=== PATIENT | female | born 1950 | race Caucasian/White ===

== ENCOUNTER → 2017-08-19 | Outpatient (CLI) | payer MEDICARE, SELFPAY | PROVIDERS: Visit Provider Internal Medicine Adolescent Medicine | DX: S81.802A Unspecified open wound, left lower leg, initial encounter (principal) | CPT/HCPCS: 87070; 87077; 87186 ==

== ENCOUNTER → 2017-08-21 | Outpatient (CLI) | payer MEDICARE, SELFPAY | PROVIDERS: Visit Provider Internal Medicine Adolescent Medicine | DX: Z78.0 Asymptomatic menopausal state (principal); M25.552 Pain in left hip; M54.5 Low back pain; Z13.820 Encounter for screening for osteoporosis | CPT/HCPCS: 77080 ==

== ENCOUNTER → 2017-08-28 | Outpatient (RCR) | payer MEDICARE, SELFPAY | LOC: PT 07-20 10:00 | PROVIDERS: Visit Provider Internal Medicine Adolescent Medicine | DX: I89.0 Lymphedema, not elsewhere classified (principal) | CPT/HCPCS: G8987; G8988; G8989; 29580; 97140; 97162; 97597; 97760 ==

== ENCOUNTER 2017-09-08 10:25 | Day surgery (SDC) | payer MEDICARE, SELFPAY ==
[2017-09-08 10:38] VITALS: BP 166/75; PULSE 72; RESP 18; TEMP 36.7; O2SAT 98
[2017-09-08 10:46] VITALS: BP 195/68; PULSE 54; RESP 18; TEMP 36.3
[2017-09-08 10:57] VITALS: BP 120/97; PULSE 65; RESP 20
[2017-09-08 10:57] LABS: POC Glucose,Bedside 113 mg/dL
[2017-09-08 10:59] VITALS: BP 139/72; PULSE 65; RESP 20
--- NOTE | 2017-09-25 13:06 | P.PCN_ITS ---
- Procedure Date: 09/08/17 Time: 11:00 Anesthesiologist:: Joshua Hogue CRNA Complications:: None Pre-procedure Diagnosis:: Left sacroiliitis Post-procedure Diagnosis:: Same Indications for Procedure:: Very pleasant 67-year-old white female that presents to our procedure clinic today for a left SI joint injection. Patient has extreme point tenderness over the left SI joint upon examination. Also patient reports left hip and buttock pain. Patient reports pain as sharp, constant, stabbing at times. Patient also reports the pain intensifies when sitting for any length of time. Procedure Details:: Informed consent was obtained and the risks and benefits of the procedure were explained to the patient. The patient was taken to the procedure room and noninvasive monitors were placed including noninvasive blood pressure cuff and pulse oximeter. The patient was placed prone on the procedure table. Left hip was cleansed using chlorhexidine as a cleansing solution. C arm fluoroscopy was used to view the left sacroiliac joint. The skin and subcutaneous tissues were anesthetized using lidocaine 1.5% and a 25-gauge needle. After this, a 22- gauge spinal needle was inserted under fluoroscopy guidance into the inferior aspect of the left sacroiliac joint. Omnipaque dye was injected and good spread was seen throughout the joint. After this, approximately 5 mL's of bupivacaine 0.25% and Depo-Medrol 80 mg was incrementally injected into the left sacroiliac joint. Patient was observed in the pain clinic and then discharged home neurologically intact Plan and Disposition:: Patient was evaluated 10 minutes postprocedure she reports 100% improvement in terms of her left hip pain
== END 2017-09-08 11:00 | disposition home or self-care (01) ==
LOC: SC.PAINP 10:28
PROVIDERS: Family Provider Internal Medicine Adolescent Medicine; PCP Internal Medicine Adolescent Medicine; Visit Provider Nurse Anesthetist, Certified Registered
DX: M46.1 Sacroiliitis, not elsewhere classified (principal); E11.9 Type 2 diabetes mellitus without complications; Z79.4 Long term (current) use of insulin
CPT/HCPCS: 27096; 82962; G0260; J1030

== ENCOUNTER 2017-09-11 15:00 | Outpatient (RCR) | payer MEDICARE, SELFPAY | END 2017-09-18 23:59 | LOC: PT 15:00 | PROVIDERS: Family Provider Internal Medicine Adolescent Medicine; PCP Internal Medicine Adolescent Medicine; Visit Provider Internal Medicine Adolescent Medicine | DX: I89.0 Lymphedema, not elsewhere classified (principal) ==

== ENCOUNTER → 2017-09-22 08:43 | Outpatient (CLI) | payer MEDICARE, SELFPAY ==
[2017-09-22 09:17] LABS: Basophils % 0.5 % (0.1-2.0); Eosinophils # 0.5 K/mm3 (0.0-0.4); Eosinophils % 6.7 % (0.1-12.0); Hematocrit 33.6 % (37.0-47.0); Hemoglobin 10.9 g/dL (12.2-16.2); Lymphocytes # 1.6 K/mm3 (0.7-4.5); Mean Corpuscular HGB Conc 32.4 g/dL (31.8-35.4); Mean Corpuscular Hemoglobin 30.6 pg (27.0-31.2); Mean Corpuscular Volume 94.2 fl (81-99); Monocytes # 0.7 K/mm3 (0.1-1.0); Monocytes % 8.2 % (1.7-9.3); Neutrophils # 5.1 K/mm3 (1.8-7.8); Neutrophils % 64.6 % (37.0-80.0); Platelet Count 270 K/mm3 (142-424); Red Blood Count 3.56 M/mm3 (4.20-5.40); Red Cell Distribution Width 14.2 % (11.5-17.5); White Blood Count 7.9 K/mm3 (4.8-10.8)
[2017-09-22 12:10] LABS: Creatinine,Urine Random 16 mg/dL (20-320); Total Protein,Urine Random 131.1 mg/dL (0.0-11.9)
[2017-09-22 12:19] LABS: Albumin Level 2.9 gm/dL (3.4-5.0); Anion Gap 9.5 mEq/L (5-15); Blood Urea Nitrogen 27 mg/dL (7-18); Calcium 8.7 mg/dL (8.5-10.1); Carbon Dioxide 32 mmol/L (21.0-32.0); Chloride 103 mmol/L (98-107); Creatinine,Serum 1.98 mg/dL (0.55-1.02); Estimated Glomerular Filt Rate 25 ml/min (>60); GFR (African American) 30 ML/MIN (>60); Glucose 75 mg/dL (74-106); Phosphorous 4.1 mg/dL (2.4-4.9); Potassium 3.5 mmoL/L (3.5-5.1); Sodium 141 mmol/L (136-145)
[2017-09-24 08:50] LABS: Vitamin D 25 Hydroxy 25.5 ng/mL (30.0-100.0)
== END ==
PROVIDERS: PCP Internal Medicine Adolescent Medicine; Visit Provider Internal Medicine Nephrology
DX: N18.5 Chronic kidney disease, stage 5 (principal)
CPT/HCPCS: 36415; 80069; 82570; 82652; 84155; 85025

== ENCOUNTER → 2017-09-28 12:30 | Outpatient (POV) | payer MEDICARE, SELFPAY | PROVIDERS: Family Provider Internal Medicine Adolescent Medicine; PCP Internal Medicine Adolescent Medicine; Visit Provider Internal Medicine Nephrology | DX: Z00.00 Encounter for general adult medical examination without abnormal findings (principal) ==

== ENCOUNTER → 2017-11-03 08:30 | Outpatient (POV) | payer MEDICARE, SELFPAY ==
[2017-11-03 08:39] VITALS: BP 167/63; PULSE 69; RESP 18; TEMP 36.3; O2SAT 96; BMI 32.9
--- NOTE | 2017-11-03 08:41 | HMH.PAINSOAP ---
[facility] Pain Management SOAP Note Subjective:: Patient is a pleasant 67-year-old white female who presents today after having a left SI joint injection 2 months ago. Patient states she got 60-80% relief from her left SI injection lasting 8 weeks. She is still having quite a bit of relief from this. Patient is very happy with her increased functionality and her ability to complete house chores. Patient does state she has some flares in her left SI. She states that when she does have this it is sharp, constant, stabbing at times. She does state that the pain radiates into her left groin area. ROS General: no recent weight change, no fever, no sleep disturbances Respiratory: no cough, no shortness of air, no recurring pulmonary infections Cardiovascular/Peripheral Vascular: No chest pain, No palpitations, no shortness of breath. Gastrointestinal: no incontinence, normal bowel movements reported Genitourinary: no incontinence Musculoskeletal: Left SI joint pain Psychiatric: normal mood/ affect Neurological: [denies weakness in extremities], [denies balance issues] Objective:: Physical Exam General: Alert and oriented x3, no acute distress, pleasant and cooperative, [on room air] Lungs: Resps E/U, Symmetrical chest expansion, Eyes: PERRL Musculoskeletal: Flexion and extension of lumbar spine somewhat guarded secondary to pain, deep tendon reflexes normal, strength in upper and lower extremities [5/5], slightly antalgic gait noted, extreme point tenderness over the left SI, left Brandee's test positive Neurological: speech clear, vegetable washing machine operator equal, no gross sensory deficits Assessment:: Left-sided sacroiliitis Plan:: We will plan another left SI joint injection in several weeks. The patient did so well with her last one I believe that this one would give her even more long-term relief. Patient had 8 weeks of relief after her last injection. This note was dictated using voice recognition software may contain errors or omissions
--- NOTE | 2017-11-03 08:45 | P.CONS_ITS ---
[facility] Pain Management SOAP Note Subjective:: Patient is a pleasant 67-year-old white female who presents today after having a left SI joint injection 2 months ago. Patient states she got 60-80% relief from her left SI injection lasting 8 weeks. She is still having quite a bit of relief from this. Patient is very happy with her increased functionality and her ability to complete house chores. Patient does state she has some flares in her left SI. She states that when she does have this it is sharp, constant, stabbing at times. She does state that the pain radiates into her left groin area. ROS General: no recent weight change, no fever, no sleep disturbances Respiratory: no cough, no shortness of air, no recurring pulmonary infections Cardiovascular/Peripheral Vascular: No chest pain, No palpitations, no shortness of breath. Gastrointestinal: no incontinence, normal bowel movements reported Genitourinary: no incontinence Musculoskeletal: Left SI joint pain Psychiatric: normal mood/ affect Neurological: [denies weakness in extremities], [denies balance issues] Objective:: Physical Exam General: Alert and oriented x3, no acute distress, pleasant and cooperative, [ on room air] Lungs: Resps E/U, Symmetrical chest expansion, Eyes: PERRL Musculoskeletal: Flexion and extension of lumbar spine somewhat guarded secondary to pain, deep tendon reflexes normal, strength in upper and lower extremities [5/5], slightly antalgic gait noted, extreme point tenderness over the left SI, left Brandee's test positive Neurological: speech clear, dishcloth folder equal, no gross sensory deficits Assessment:: Left-sided sacroiliitis Plan:: We will plan another left SI joint injection in several weeks. The patient did so well with her last one I believe that this one would give her even more long- term relief. Patient had 8 weeks of relief after her last injection. This note was dictated using voice recognition software may contain errors or omissions
== END ==
PROVIDERS: Family Provider Internal Medicine Adolescent Medicine; PCP Internal Medicine Adolescent Medicine; Visit Provider Clinical Nurse Specialist Family Health
DX: M46.1 Sacroiliitis, not elsewhere classified (principal)
CPT/HCPCS: 99212

== ENCOUNTER → 2017-12-22 07:44 | Outpatient (CLI) | payer MEDICARE, SELFPAY ==
[2017-12-22 09:26] LABS: Albumin Level 3.2 gm/dL (3.4-5.0); Anion Gap 12.8 mEq/L (5-15); Blood Urea Nitrogen 42 mg/dL (7-18); Calcium 8.9 mg/dL (8.5-10.1); Carbon Dioxide 34 mmol/L (21.0-32.0); Chloride 97 mmol/L (98-107); Creatinine,Serum 2.16 mg/dL (0.55-1.02); Estimated Glomerular Filt Rate 23 ml/min (>60); GFR (African American) 27 ML/MIN (>60); Glucose 77 mg/dL (74-106); Phosphorous 4.5 mg/dL (2.4-4.9); Sodium 141 mmol/L (136-145)
[2017-12-22 09:38] LABS: Potassium 2.8 mmoL/L (3.5-5.1)
== END ==
PROVIDERS: Visit Provider Internal Medicine Nephrology
DX: N18.5 Chronic kidney disease, stage 5 (principal)
CPT/HCPCS: 36415; 80069

== ENCOUNTER → 2017-12-28 12:32 | Outpatient (POV) | payer MEDICARE, SELFPAY | PROVIDERS: Family Provider Internal Medicine Adolescent Medicine; PCP Internal Medicine Adolescent Medicine; Visit Provider Internal Medicine Nephrology | DX: Z00.00 Encounter for general adult medical examination without abnormal findings (principal) ==

== ENCOUNTER → 2018-01-07 09:21 | Outpatient (CLI) | payer MEDICARE, SELFPAY ==
[2018-01-07 12:38] LABS: Anion Gap 15.2 mEq/L (5-15); Blood Urea Nitrogen 52 mg/dL (7-18); Carbon Dioxide 31 mmol/L (21.0-32.0); Chloride 99 mmol/L (98-107); Creatinine,Serum 2.85 mg/dL (0.55-1.02); Estimated Glomerular Filt Rate 16 ml/min (>60); GFR (African American) 20 ML/MIN (>60); Glucose 95 mg/dL (74-106); Potassium 4.2 mmoL/L (3.5-5.1); Sodium 141 mmol/L (136-145)
== END ==
PROVIDERS: Visit Provider Internal Medicine Nephrology
DX: N18.5 Chronic kidney disease, stage 5 (principal)
CPT/HCPCS: 36415; 80048

== ENCOUNTER 2018-01-08 09:00 | Outpatient (RCR) | payer MEDICARE, SELFPAY | END 2018-01-08 09:01 | disposition home or self-care (01) | LOC: PT 09:00 | PROVIDERS: Family Provider Internal Medicine Adolescent Medicine; PCP Internal Medicine Adolescent Medicine; Visit Provider Internal Medicine Adolescent Medicine | DX: I89.0 Lymphedema, not elsewhere classified (principal) | CPT/HCPCS: 97140; 97164; 97597 ==

== ENCOUNTER → 2018-02-02 08:51 | Outpatient (POV) | payer MEDICARE, SELFPAY ==
[2018-02-02 08:55] VITALS: BP 133/49; PULSE 52; RESP 18; O2SAT 98; BMI 32.5
--- NOTE | 2018-02-02 09:08 | HMH.PAINSOAP ---
[facility] Pain Management SOAP Note Subjective:: Patient is a pleasant 67-year-old white female who presents today for follow-up. Patient had an SI joint injection several months ago. She states that she had 80% relief of her SI joint pain. Patient states that this lasted for over 2 months. Patient states she is more functional after her injections. Patient would like another left SI joint injection. Patient states that her pain has begun to return it radiates into her left groin. Patient states that sharp, stabbing at times. Patient rates her pain today at 3 out of 10. ROS General: no recent weight change, no fever, no sleep disturbances Respiratory: no cough, no shortness of air, no recurring pulmonary infections Cardiovascular/Peripheral Vascular: No chest pain, No palpitations, no edema, no shortness of breath. Gastrointestinal: no incontinence, normal bowel movements reported Genitourinary: no incontinence Musculoskeletal: Left SI joint pain Psychiatric: normal mood/ affect Neurological: [denies weakness in extremities], [denies balance issues] Objective:: Physical Exam General: Alert and oriented x3, no acute distress, pleasant and cooperative, [on room air] Lungs: Resps E/U, Symmetrical chest expansion, Eyes: PERRL Musculoskeletal: Flexion and extension of lumbar spine somewhat guarded secondary to pain, deep tendon reflexes normal, strength in upper and lower extremities [5/5], slightly antalgic gait noted, positive Brandee's test on the left side, extreme point tenderness over left SI joint Neurological: speech clear, advertising sales manager equal, no gross sensory deficits Assessment:: Sacroiliitis Plan:: We will plan another left SI joint injection. Patient did well with her last one. I believe that she will get even more long-term relief and additional injection. Patient is not on any anticoagulation therapy. Patient's tried and failed physical therapy, anti-inflammatories, medications. I will follow-up with her after injection. This note was dictated using voice recognition software and may contain errors or omissions
== END ==
PROVIDERS: Family Provider Internal Medicine Adolescent Medicine; PCP Internal Medicine Adolescent Medicine; Visit Provider Clinical Nurse Specialist Family Health
DX: M46.1 Sacroiliitis, not elsewhere classified (principal)
CPT/HCPCS: 99212

== ENCOUNTER → 2018-02-03 09:50 | Outpatient (CLI) | payer MEDICARE, SELFPAY ==
[2018-02-03 10:38] LABS: Basophils % 0.8 % (0.1-2.0); Eosinophils # 0.4 K/mm3 (0.0-0.4); Eosinophils % 7.8 % (0.1-12.0); Hematocrit 31.8 % (37.0-47.0); Hemoglobin 10.1 g/dL (12.2-16.2); Lymphocytes # 1.3 K/mm3 (0.7-4.5); Lymphocytes % 25.3 K/mm3 (10-50); Mean Corpuscular HGB Conc 31.9 g/dL (31.8-35.4); Mean Corpuscular Hemoglobin 31.2 pg (27.0-31.2); Mean Corpuscular Volume 97.9 fl (81-99); Mean Platelet Volume 8.3 fl (7.4-10.4); Monocytes # 0.5 K/mm3 (0.1-1.0); Monocytes % 8.9 % (1.7-9.3); Neutrophils % 57.2 % (37.0-80.0); Platelet Count 255 K/mm3 (142-424); Red Blood Count 3.25 M/mm3 (4.20-5.40); Red Cell Distribution Width 12.8 % (11.5-17.5); White Blood Count 5.2 K/mm3 (4.8-10.8)
[2018-02-03 12:11] LABS: Alanine Aminotransferase 24 U/L (12-78); Albumin Level 3.3 gm/dL (3.4-5.0); Albumin/Globulin Ratio 1.3 (1.1-1.8); Alkaline Phosphatase 120 U/L (46-116); Anion Gap 14.4 mEq/L (5-15); Aspartate Amino Transferase 28 U/L (15-37); Bilirubin,Total 0.4 mg/dL (0.2-1.0); Blood Urea Nitrogen 58 mg/dL (7-18); Calcium 8.4 mg/dL (8.5-10.1); Carbon Dioxide 27 mmol/L (21.0-32.0); Chloride 102 mmol/L (98-107); Chol/HDL Ratio 4.2 (1-3.5); Cholesterol 144 mg/dL (140-200); Creatinine,Serum 3.04 mg/dL (0.55-1.02); Estimated Glomerular Filt Rate 15 ml/min (>60); GFR (African American) 18 ML/MIN (>60); Globulin 2.6 gm/dl (1.3-3.2); Glucose 95 mg/dL (74-106); HDL Cholesterol 34 mg/dL (29-89); LDL Cholesterol 88 mg/dL (0-130); Potassium 4.4 mmoL/L (3.5-5.1); Sodium 139 mmol/L (136-145); Total Protein,Serum 5.9 gm/dL (6.4-8.2); Triglycerides 108 mg/dL (30-200); VLDL Cholesterol 22 mg/dL (0-40)
== END ==
PROVIDERS: Visit Provider Internal Medicine Adolescent Medicine
DX: N18.2 Chronic kidney disease, stage 2 (mild) (principal); E11.21 Type 2 diabetes mellitus with diabetic nephropathy; E78.5 Hyperlipidemia, unspecified
CPT/HCPCS: 36415; 80053; 80061; 83036; 85025

== ENCOUNTER 2018-02-19 09:59 | Day surgery (SDC) | payer MEDICARE, SELFPAY ==
[2018-02-19 10:38] VITALS: BP 154/96; PULSE 88; RESP 18; O2SAT 98
--- NOTE | 2018-02-19 10:40 | P.PCN_ITS ---
- Procedure Date: 02/19/18 Time: 10:39 Anesthesiologist:: Americo Sharpe MD Complications:: None Pre-procedure Diagnosis:: Sacroiliitis Post-procedure Diagnosis:: Same Indications for Procedure:: This patient is a pleasant 67-year-old white female who we are treating for left -sided hip pain. She is tender over the left SI joint. She does have a positive Brandee's test on left side. We will do a left SI joint injection today to see if this helps with her pain symptoms. Procedure Details:: Left SI joint injection under fluoroscopy Informed consent was obtained and the risks and benefits of the procedure was explained to the patient. Patient was taken to the procedure room. Patient was placed prone on the procedure table. The left hip was prepped using ChloraPrep. The skin and subcutaneous tissues were anesthetized using lidocaine. I placed a 22-gauge spinal needle into the inferior aspect of the left SI joint. Needle placement was confirmed with dye. After this we injected 5 mL bupivacaine 0.25% and Depo-Medrol 40 mg into the left SI joint. The patient tolerated the procedure well with no complication. Plan and Disposition:: We will follow-up with her in 2 weeks. We will reevaluate her symptoms at that time.
[2018-02-19 11:00] VITALS: BP 158/59; PULSE 78; RESP 18; O2SAT 98
[2018-02-19 13:39] VITALS: BP 154/87; PULSE 88; RESP 20; O2SAT 97; BMI 31.8
== END 2018-02-19 11:00 | disposition home or self-care (01) ==
LOC: SC.PAINP 10:01
PROVIDERS: PCP Internal Medicine Adolescent Medicine; Visit Provider Anesthesiology
DX: M46.1 Sacroiliitis, not elsewhere classified (principal)
CPT/HCPCS: 27096; G0260; J1040; Q9966

== ENCOUNTER → 2018-02-27 11:00 | Outpatient (CLI) | payer MEDICARE, SELFPAY ==
[2018-02-27 12:01] LABS: Basophils % 0.4 % (0.1-2.0); Eosinophils # 0.3 K/mm3 (0.0-0.4); Eosinophils % 4.5 % (0.1-12.0); Hematocrit 29.2 % (37.0-47.0); Lymphocytes # 1.3 K/mm3 (0.7-4.5); Lymphocytes % 18.2 K/mm3 (10-50); Mean Corpuscular HGB Conc 34.4 g/dL (31.8-35.4); Mean Corpuscular Hemoglobin 33.7 pg (27.0-31.2); Mean Corpuscular Volume 97.8 fl (81-99); Monocytes # 0.6 K/mm3 (0.1-1.0); Monocytes % 8.5 % (1.7-9.3); Neutrophils % 68.4 % (37.0-80.0); Platelet Count 239 K/mm3 (142-424); Red Blood Count 2.98 M/mm3 (4.20-5.40); Red Cell Distribution Width 13.5 % (11.5-17.5); White Blood Count 7.3 K/mm3 (4.8-10.8)
[2018-02-27 12:52] LABS: Albumin Level 3.5 gm/dL (3.4-5.0); Anion Gap 11.8 mEq/L (5-15); Blood Urea Nitrogen 53 mg/dL (7-18); Calcium 8.6 mg/dL (8.5-10.1); Carbon Dioxide 28 mmol/L (21.0-32.0); Chloride 105 mmol/L (98-107); Creatinine,Serum 2.38 mg/dL (0.55-1.02); Estimated Glomerular Filt Rate 20 ml/min (>60); GFR (African American) 24 ML/MIN (>60); Glucose 60 mg/dL (74-106); Phosphorous 5.3 mg/dL (2.4-4.9); Potassium 4.8 mmoL/L (3.5-5.1); Sodium 140 mmol/L (136-145)
== END ==
PROVIDERS: Visit Provider Internal Medicine Nephrology
DX: N18.5 Chronic kidney disease, stage 5 (principal)
CPT/HCPCS: 36415; 80069; 82652; 85025

== ENCOUNTER → 2018-03-01 13:14 | Outpatient (POV) | payer MEDICARE, SELFPAY | PROVIDERS: Family Provider Internal Medicine Adolescent Medicine; PCP Internal Medicine Adolescent Medicine; Visit Provider Internal Medicine Nephrology | DX: Z00.00 Encounter for general adult medical examination without abnormal findings (principal) ==

== ENCOUNTER → 2018-03-22 10:18 | Outpatient (CLI) | payer MEDICARE, SELFPAY ==
--- NOTE | 2018-03-22 10:20 | MM_ITS ---
MM Dig screening mamm BI w/CAD CAD Screening COMPARISON: Digital mammograms with CAD 02/14/2016 and 03/10/2017 INDICATION: There is no personal or family history of breast cancer TECHNIQUE: Standard CC and MLO images were obtained. R2 CAD reviewed. FINDINGS: Moderate diffuse fibroglandular densities are seen in both breasts. There is arterial calcination in each breast and are scattered benign-appearing calcination is in each breast. There is no suspicious lesion and there are no suspicious microcalcifications. IMPRESSION: Moderate breast density with no suspicious lesion seen BI-RADS Category: 2 Benign Finding(s) RECOMMENDED FOLLOW-UP: 1YR - 1 YEAR FOLLOW-UP (A letter has been sent to the patient regarding results of the study.)
== END ==
PROVIDERS: Family Provider Internal Medicine Adolescent Medicine; PCP Internal Medicine Adolescent Medicine; Visit Provider Internal Medicine Adolescent Medicine
DX: Z12.31 Encounter for screening mammogram for malignant neoplasm of breast (principal)
CPT/HCPCS: 77067

== ENCOUNTER → 2018-03-25 11:49 | Outpatient (CLI) | payer MEDICARE, SELFPAY | PROVIDERS: PCP Internal Medicine Adolescent Medicine; Visit Provider Internal Medicine Cardiovascular Disease | DX: I25.10 Atherosclerotic heart disease of native coronary artery without angina pectoris (principal) | CPT/HCPCS: 93225 ==

== ENCOUNTER → 2018-04-13 09:04 | Outpatient (CLI) | payer MEDICARE, SELFPAY ==
[2018-04-13 10:02] LABS: Basophils % 0.3 % (0.1-2.0); Eosinophils # 0.5 K/mm3 (0.0-0.4); Eosinophils % 7.5 % (0.1-12.0); Hematocrit 26.7 % (37.0-47.0); Hemoglobin 9.1 g/dL (12.2-16.2); Lymphocytes # 1.2 K/mm3 (0.7-4.5); Lymphocytes % 18.5 K/mm3 (10-50); Mean Corpuscular HGB Conc 34.1 g/dL (31.8-35.4); Mean Corpuscular Hemoglobin 33.2 pg (27.0-31.2); Mean Corpuscular Volume 97.4 fl (81-99); Monocytes # 0.7 K/mm3 (0.1-1.0); Neutrophils # 4.2 K/mm3 (1.8-7.8); Neutrophils % 62.8 % (37.0-80.0); Platelet Count 211 K/mm3 (142-424); Red Blood Count 2.74 M/mm3 (4.20-5.40); Red Cell Distribution Width 13.5 % (11.5-17.5); White Blood Count 6.6 K/mm3 (4.8-10.8)
[2018-04-13 10:53] LABS: Albumin Level 3.4 gm/dL (3.4-5.0); Blood Urea Nitrogen 44 mg/dL (7-18); Calcium 8.6 mg/dL (8.5-10.1); Carbon Dioxide 33 mmol/L (21.0-32.0); Chloride 99 mmol/L (98-107); Creatinine,Serum 2.36 mg/dL (0.55-1.02); Estimated Glomerular Filt Rate 20 ml/min (>60); Ferritin 324 ng/mL (8-388); GFR (African American) 25 ML/MIN (>60); Glucose 78 mg/dL (74-106); Phosphorous 4.4 mg/dL (2.4-4.9); Sodium 143 mmol/L (136-145)
[2018-04-14 08:33] LABS: Iron 64 ug/dL (27-139); Iron Saturation 25 % (15-55); UIBC 189 ug/dL (118-369)
[2018-04-14 08:46] LABS: Folate 17.4 ng/mL (>3.0); Vitamin B12 465 pg/mL (232-1245)
[2018-04-14 15:25] LABS: Albumin 3.1 g/dL (2.9-4.4); Alpha-1-Globulin 0.4 g/dL (0.0-0.4); Alpha-2-Globulin 1.1 g/dL (0.4-1.0); Gamma Globulin 0.5 g/dL (0.4-1.8)
[2018-04-14 16:28] LABS: Free Kappa Lt Chains 30.6 mg/L (3.3-19.4); Free Lambda Lt Chains 26.3 mg/L (5.7-26.3)
== END ==
PROVIDERS: Visit Provider Internal Medicine Nephrology
DX: N18.5 Chronic kidney disease, stage 5 (principal)
CPT/HCPCS: 36415; 80069; 82607; 82728; 82746; 83540; 83550; 83883; 84155; 84165; 85025

== ENCOUNTER → 2018-04-19 13:35 | Outpatient (POV) | payer MEDICARE, SELFPAY | PROVIDERS: Family Provider Internal Medicine Adolescent Medicine; PCP Internal Medicine Adolescent Medicine; Visit Provider Internal Medicine Nephrology | DX: Z00.00 Encounter for general adult medical examination without abnormal findings (principal) ==

== ENCOUNTER → 2018-04-26 12:51 | Outpatient (POV) | payer MEDICARE, SELFPAY ==
[2018-04-26 13:07] VITALS: BP 148/51; PULSE 53; RESP 18; O2SAT 98; BMI 34.7
--- NOTE | 2018-04-26 13:14 | HMH.PAINSOAP ---
[facility] Pain Management SOAP Note Subjective:: Patient is a pleasant 67-year-old white female who presents today for follow-up after left SI joint injection back in January. Patient's doing well she states that she got 90% relief after her injection for 2 months. Patient states pain is beginning to return and rates it a 6 out of 10. Patient does utilize Tylenol for pain relief. Patient is not on any NSAIDs at this time due to an ulcer. ROS General: no recent weight change, no fever, no sleep disturbances Respiratory: no cough, no shortness of air, no recurring pulmonary infections Cardiovascular/Peripheral Vascular: No chest pain, No palpitations, no edema, no shortness of breath. Gastrointestinal: no incontinence, normal bowel movements reported Genitourinary: no incontinence Musculoskeletal: Left SI joint pain Psychiatric: normal mood/ affect Neurological: [denies weakness in extremities], [denies balance issues] Objective:: Physical Exam General: Alert and oriented x3, no acute distress, pleasant and cooperative, [on room air] Lungs: Resps E/U, Symmetrical chest expansion, Eyes: PERRL Musculoskeletal: Flexion and extension of lumbar spine somewhat guarded secondary to pain, deep tendon reflexes normal, strength in upper and lower extremities [5/5], slightly antalgic gait noted, positive Brandee's test on the left side Neurological: speech clear, siderographist equal, no gross sensory deficits Assessment:: Sacroiliitis Plan:: We will schedule a left SI joint injection for the patient. We will try the patient on some vimovo or Duexis if the patient wants to try a anti-inflammatory with gastric protection. She will call to tell us if she would like to move forward with that. I will follow-up with the patient after injection. This note was dictated using voice recognition software and may contain errors or omissions
== END ==
PROVIDERS: Family Provider Internal Medicine Adolescent Medicine; PCP Internal Medicine Adolescent Medicine; Visit Provider Clinical Nurse Specialist Family Health
DX: M46.1 Sacroiliitis, not elsewhere classified (principal)
CPT/HCPCS: 99213

== ENCOUNTER → 2018-05-06 09:15 | Outpatient (CLI) | payer MEDICARE, SELFPAY ==
[2018-05-06 10:41] LABS: Anion Gap 8.3 mEq/L (5-15); Blood Urea Nitrogen 43 mg/dL (7-18); Calcium 8.6 mg/dL (8.5-10.1); Carbon Dioxide 34 mmol/L (21.0-32.0); Chloride 105 mmol/L (98-107); Creatinine,Serum 2.52 mg/dL (0.55-1.02); Estimated Glomerular Filt Rate 19 ml/min (>60); GFR (African American) 23 ML/MIN (>60); Glucose 86 mg/dL (74-106); Potassium 4.3 mmoL/L (3.5-5.1); Sodium 143 mmol/L (136-145)
== END ==
PROVIDERS: PCP Internal Medicine Adolescent Medicine; Visit Provider Internal Medicine Nephrology
DX: N18.4 Chronic kidney disease, stage 4 (severe) (principal)
CPT/HCPCS: 36415; 80048

== ENCOUNTER → 2018-05-21 09:18 | Outpatient (CLI) | payer MEDICARE, SELFPAY ==
[2018-05-21 11:17] LABS: Cholesterol 138 mg/dL (140-200); HDL Cholesterol 34 mg/dL (29-89); LDL Cholesterol 67 mg/dL (0-130); Triglycerides 187 mg/dL (30-200); VLDL Cholesterol 37 mg/dL (0-40)
[2018-05-21 11:18] LABS: Chol/HDL Ratio 4.1 (1-3.5)
== END ==
PROVIDERS: PCP Internal Medicine Adolescent Medicine; Visit Provider Internal Medicine Adolescent Medicine
DX: E78.5 Hyperlipidemia, unspecified (principal)
CPT/HCPCS: 36415; 80061

== ENCOUNTER 2018-06-10 08:00 | Outpatient (RCR) | payer MEDICARE, SELFPAY ==
--- NOTE | 2018-04-13 12:02 | HMH.PTOPWND ---
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 2 wks of increased lise LE edema and weeping sore on left lower leg . She reports insidious onset of symptoms, but later admits that she has been on her feet and not propping her legs up during the day. She reports discomfort in lise LE, but only in the evening and only intermittently. She has hx of Dm-II, CABG, [place], cardiac stents, and CVI. Subjective Subjective Pt currently has no c/o pain or tenderness. Wound Eval Wound Left Posterior Calf Wound Type Stasis Ulcer Is This a Chronic Wound No Wound Length (cm) 0.4 Wound Width (cm) 0.2 Wound Bed Appearance Beefy Red Wound Margins Description Well Defined Edema Type Pitting Edema Degree 3+ Query Text:1+ Trace, Barely Detectable, Rebound 15-30 seconds 2+ Moderate, Slight Indentation, Rebound 10-20 seconds 3+ Deep, Deeper Indentation, Rebound > 30 seconds 4+ Very Deep, Rebound > 60 seconds Edema Appearance Shiny Puffy Drainage Description Serous Drainage Amount Moderate Wound Topical Solution/Irrigant Saline Irrigant Primary Dressing Composite Dressing Change Patient Tolerance Tolerated Well Lymphedema Eval Classification of Lymphedema Secondary Lymphedema Yes: CVI Stemmer's sign Stemmer's Sign no Stage of Lymphedema Lymphedema stages Stage I (Pitting edema, reduces w/ elevation, no fibrosis) Skin Changes Taut, Shiny Skin Yes Redness Yes Wounds Yes Affected Extremities Areas Affected by Lymphedema/Edema Right Lower Extremity Left Lower Extremity Manual Lymphatic Drainage Treatment Area MLD Treatment Area Right Lower Extremity
== END 2018-06-10 08:01 | disposition home or self-care (01) ==
LOC: PT 08:00
PROVIDERS: Family Provider Internal Medicine Adolescent Medicine; PCP Internal Medicine Adolescent Medicine; Visit Provider Internal Medicine Adolescent Medicine
DX: I89.0 Lymphedema, not elsewhere classified (principal)
CPT/HCPCS: 97140; 97162; 97760

== ENCOUNTER → 2018-06-15 09:54 | Outpatient (POV) | payer MEDICARE, SELFPAY ==
--- NOTE | 2018-06-15 10:24 | HMH.PAINSOAP ---
[facility] Pain Management SOAP Note Subjective:: She is a pleasant 63-year-old white female who we are treating for left SI joint pain. Patient is following up after an injection but she rates her pain. She states that the injections helped 90% up to. Patient would like to schedule a injection for July. ROS General: no recent weight change, no fever, no sleep disturbances Respiratory: no cough, no shortness of air, no recurring pulmonary infections Cardiovascular/Peripheral Vascular: No chest pain, No palpitations, no edema, no shortness of breath. Gastrointestinal: no incontinence, normal bowel movements reported Genitourinary: no incontinence Musculoskeletal: Left SI joint pain Psychiatric: normal mood/ affect Neurological: [denies weakness in extremities], [denies balance issues] Objective:: Physical Exam General: Alert and oriented x3, no acute distress, pleasant and cooperative, [on room air] Lungs: Resps E/U, Symmetrical chest expansion, Eyes: PERRL Musculoskeletal: Flexion and extension of lumbar spine somewhat guarded secondary to pain, deep tendon reflexes normal, strength in upper and lower extremities [5/5], [abnormal gait noted] positive Brandee's test on the left side. 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 Patient is going to call with a time that is going to work with her daughter schedule for a cement truck driver. I will follow-up with the patient rather injection. This note was dictated using voice recognition software and may contain errors or omissions
[2018-06-15 10:27] VITALS: BP 165/55; PULSE 50; RESP 18; O2SAT 98; BMI 33.3
== END ==
PROVIDERS: Family Provider Internal Medicine Adolescent Medicine; PCP Internal Medicine Adolescent Medicine; Visit Provider Clinical Nurse Specialist Family Health
DX: M46.1 Sacroiliitis, not elsewhere classified (principal)
CPT/HCPCS: 99213

== ENCOUNTER → 2018-07-30 13:07 | Outpatient (CLI) | payer MEDICARE, SELFPAY ==
[2018-07-30 14:48] LABS: Basophils % 0.5 % (0.1-2.0); Eosinophils # 0.3 K/mm3 (0.0-0.4); Eosinophils % 4.8 % (0.1-12.0); Hematocrit 29.8 % (37.0-47.0); Hemoglobin 9.8 g/dL (12.2-16.2); Lymphocytes % 15.2 % (10-50); Mean Corpuscular HGB Conc 33.1 g/dL (31.8-35.4); Mean Corpuscular Hemoglobin 31.8 pg (27.0-31.2); Mean Corpuscular Volume 96.1 fl (81-99); Mean Platelet Volume 7.5 fl (7.4-10.4); Monocytes # 0.4 K/mm3 (0.1-1.0); Monocytes % 6.3 % (1.7-9.3); Neutrophils # 4.8 K/mm3 (1.8-7.8); Neutrophils % 73.3 % (37.0-80.0); Platelet Count 224 K/mm3 (142-424); Red Cell Distribution Width 13.7 % (11.5-17.5); White Blood Count 6.5 K/mm3 (4.8-10.8)
[2018-07-30 16:02] LABS: Albumin Level 3.3 gm/dL (3.4-5.0); Anion Gap 13.8 mEq/L (5-15); Blood Urea Nitrogen 63 mg/dL (7-18); Calcium 8.7 mg/dL (8.5-10.1); Carbon Dioxide 29 mmol/L (21.0-32.0); Chloride 102 mmol/L (98-107); Creatinine,Serum 2.47 mg/dL (0.55-1.02); Estimated Glomerular Filt Rate 19 ml/min (>60); GFR (African American) 23 ML/MIN (>60); Glucose 165 mg/dL (74-106); Potassium 3.8 mmoL/L (3.5-5.1); Sodium 141 mmol/L (136-145)
[2018-08-02 09:34] LABS: Parathyroid Hormone Intact 62 pg/mL (15-65); Vitamin D 25 Hydroxy 28.4 ng/mL (30.0-100.0)
== END ==
PROVIDERS: PCP Internal Medicine Adolescent Medicine; Visit Provider Internal Medicine Nephrology
DX: N18.4 Chronic kidney disease, stage 4 (severe) (principal)
CPT/HCPCS: 36415; 80069; 82652; 83520; 83970; 85025

== ENCOUNTER → 2018-08-02 12:48 | Outpatient (CLI) | payer MEDICARE, SELFPAY ==
[2018-08-04 06:26] LABS: Calcium, Ionized 5.1 mg/dL (4.5-5.6)
== END ==
PROVIDERS: Visit Provider Internal Medicine Nephrology
DX: N18.4 Chronic kidney disease, stage 4 (severe) (principal)
CPT/HCPCS: 36415; 82330

== ENCOUNTER → 2018-08-02 13:06 | Outpatient (POV) | payer MEDICARE, SELFPAY | PROVIDERS: Visit Provider Internal Medicine Nephrology | DX: Z00.00 Encounter for general adult medical examination without abnormal findings (principal) ==

== ENCOUNTER → 2018-08-04 13:07 | Outpatient (CLI) | payer MEDICARE, SELFPAY ==
--- NOTE | 2018-08-04 13:14 | XR_ITS ---
XR foot RT min 3V HISTORY: Posttraumatic pain ITS.REASON: RT FOOT INJURY ORDERING PHYSICIAN: Royer Parrish MD PATIENT AGE: 68 years COMPARISON: None FINDINGS: There is generalized vascular calcification. There is a well-circumscribed defect involving the head of the third metatarsal medially. There is some cortical angulation involving the distal aspect of the fourth metatarsal which could be due to a nondisplaced fracture. Please correlate as to patient's area of pain and tenderness. IMPRESSION: 1. Possible nondisplaced fracture distal aspect of fourth metatarsal. 2. Small erosion at the head of the third metatarsal medially nonspecific could be due to periarticular erosive change from arthritis or even gout.
== END ==
PROVIDERS: PCP Internal Medicine Adolescent Medicine; Visit Provider Internal Medicine Adolescent Medicine
DX: S99.921A Unspecified injury of right foot, initial encounter (principal)
CPT/HCPCS: 73630

== ENCOUNTER → 2018-09-20 15:25 | Outpatient (POV) | payer MEDICARE, SELFPAY ==
[2018-09-20 15:29] VITALS: BP 142/47; PULSE 57; RESP 18; BMI 37.4
--- NOTE | 2018-09-21 08:51 | HMH.PAINSOAP ---
[facility] Pain Management SOAP Note Subjective:: Is a pleasant 68-year-old white female who presents today for follow-up after SI joint injection. Patient states she has 90% relief of her symptoms would like to follow-up as needed she is doing well at this time. She rates her pain a 1 out of 10. ROS General: no recent weight change, no fever, no sleep disturbances Respiratory: no cough, no shortness of air, no recurring pulmonary infections Cardiovascular/Peripheral Vascular: No chest pain, No palpitations, no edema, no shortness of breath. Gastrointestinal: no incontinence, normal bowel movements reported Genitourinary: no incontinence Musculoskeletal: [SI joint pain at times Psychiatric: normal mood/ affect Neurological: [denies weakness in extremities], [denies balance issues] Objective:: Physical Exam General: Alert and oriented x3, no acute distress, pleasant and cooperative, [on room air] Lungs: Resps E/U, Symmetrical chest expansion, Eyes: PERRL Musculoskeletal: Flexion and extension of lumbar spine somewhat guarded secondary to pain, deep tendon reflexes normal, strength in upper and lower extremities [5/5], [abnormal gait noted] Neurological: speech clear, computer sciences professor equal, no gross sensory deficits Assessment:: Sacroiliitis Plan:: We will follow-up with the patient in 3 months and reassess her symptoms at that time. If the patient feels like she needs an injection prior to this she is welcome to call us. Dr. Sharpe has reviewed this note and agrees with this plan of care. This note was dictated using voice recognition software and may contain errors or omissions
== END ==
PROVIDERS: PCP Internal Medicine Adolescent Medicine; Visit Provider Clinical Nurse Specialist Family Health
DX: M46.1 Sacroiliitis, not elsewhere classified (principal)
CPT/HCPCS: 99213

== ENCOUNTER → 2018-10-25 15:50 | Outpatient (CLI) | payer MEDICARE, SELFPAY ==
--- NOTE | 2018-10-25 15:56 | XR_ITS ---
XR foot wt bearing RT 3V HISTORY: ITS.REASON: fracture/dislocation follow-up ORDERING PHYSICIAN: Lani Cloud DPM PATIENT AGE: 68 years COMPARISON: 08/04/2018 FINDINGS: Cortical angulation once again noted involving the distal aspect of the fourth metatarsal which may be due to nondisplaced fracture age indeterminant unchanged. Cortical erosion of the distal aspect of the third metatarsal medially is not well demonstrated which may be due to some difference in degree of rotation. There is mild pes planus with calcaneal spur and generalized vascular calcification with degenerative changes of the navicular cuneiform joint dorsally. IMPRESSION: Overall no change in the suspected nondisplaced fracture of the distal aspect of fourth metatarsal as described. No fracture line or sclerosis however apparent
== END ==
PROVIDERS: PCP Internal Medicine Adolescent Medicine; Visit Provider Podiatrist
DX: T14.8XXA Other injury of unspecified body region, initial encounter (principal); S92.334G Nondisplaced fracture of third metatarsal bone, right foot, subsequent encounter for fracture with delayed healing
CPT/HCPCS: 73630

== ENCOUNTER → 2018-11-22 15:45 | Outpatient (CLI) | payer MEDICARE, SELFPAY ==
--- NOTE | 2018-11-22 15:50 | XR_ITS ---
XR foot wt bearing RT 3V HISTORY: Follow-up fracture ITS.REASON: fracture follow up ORDERING PHYSICIAN: Lani Cloud DPM PATIENT AGE: 68 years COMPARISON: 10/25/2018 FINDINGS: There is diffuse osteopenia and vascular calcification. Contour deformity once again noted involving the distal aspect of the third metatarsal suggesting a nondisplaced fracture unchanged. Subarticular lucency involving the lateral aspect of the fourth metatarsal distally. IMPRESSION: No change, healed fracture fourth metatarsal with diffuse osteopenia and vascular calcification along with a subarticular lucency of the head of the third metatarsal
== END ==
PROVIDERS: PCP Internal Medicine Adolescent Medicine; Visit Provider Podiatrist
DX: T14.8XXA Other injury of unspecified body region, initial encounter (principal); S92.334D Nondisplaced fracture of third metatarsal bone, right foot, subsequent encounter for fracture with routine healing
CPT/HCPCS: 73630

== ENCOUNTER → 2018-12-21 14:34 | Outpatient (POV) | payer MEDICARE, SELFPAY ==
[2018-12-21 15:20] VITALS: BP 130/50; PULSE 53; RESP 18; O2SAT 98; BMI 33.5
--- NOTE | 2018-12-21 15:39 | P.CONS_ITS ---
[facility] Pain Management SOAP Note Subjective:: Is a pleasant 68-year-old white female who presents today for follow-up after bilateral SI joint injections. She is doing extremely well rating her pain a 3 out of 10. She states she is much more active. Patient states she has 90% relief of her symptoms. ROS General: no recent weight change, no fever, no sleep disturbances Respiratory: no cough, no shortness of air, no recurring pulmonary infections Cardiovascular/Peripheral Vascular: No chest pain, No palpitations, no edema, no shortness of breath. Gastrointestinal: no incontinence, normal bowel movements reported Genitourinary: no incontinence Musculoskeletal: Bilateral SI joint pain Psychiatric: normal mood/ affect Neurological: [denies weakness in extremities], [denies balance issues] Objective:: Physical Exam General: Alert and oriented x3, no acute distress, pleasant and cooperative, [on room air] Lungs: Resps E/U, Symmetrical chest expansion, Eyes: PERRL Musculoskeletal: Flexion and extension of lumbar spine somewhat guarded secondary to pain, deep tendon reflexes normal, strength in upper and lower extremities [5/5], antalgic gait noted Neurological: speech clear, neon glass blower equal, no gross sensory deficits Assessment:: Sacroiliitis Plan:: We will see the patient back in 2 months to reassess her symptoms. She is been instructed to call the office if she has any issues prior to her next appointment. Dr. Sharpe has reviewed this note and agrees with this plan of care. This note was dictated using voice recognition software and may contain errors or omissions
== END ==
PROVIDERS: PCP Internal Medicine Adolescent Medicine; Visit Provider Clinical Nurse Specialist Family Health
DX: M46.1 Sacroiliitis, not elsewhere classified (principal)
CPT/HCPCS: 99212

== ENCOUNTER → 2019-01-22 10:23 | Outpatient (CLI) | payer MEDICARE, SELFPAY ==
[2019-01-22 10:56] LABS: Basophils % 0.5 % (0.1-2.0); Eosinophils # 0.5 K/mm3 (0.0-0.4); Eosinophils % 7.2 % (0.1-12.0); Hemoglobin 9.6 g/dL (12.2-16.2); Lymphocytes # 1.3 K/mm3 (0.7-4.5); Mean Corpuscular HGB Conc 32.1 g/dL (31.8-35.4); Mean Corpuscular Hemoglobin 31.3 pg (27.0-31.2); Mean Corpuscular Volume 97.5 fl (81-99); Mean Platelet Volume 8.6 fl (7.4-10.4); Monocytes # 0.7 K/mm3 (0.1-1.0); Monocytes % 9.2 % (1.7-9.3); Neutrophils # 4.7 K/mm3 (1.8-7.8); Platelet Count 196 K/mm3 (142-424); Red Blood Count 3.08 M/mm3 (4.20-5.40); Red Cell Distribution Width 13.6 % (11.5-17.5); White Blood Count 7.3 K/mm3 (4.8-10.8)
[2019-01-22 12:12] LABS: Alanine Aminotransferase 20 U/L (12-78); Albumin Level 3.4 gm/dL (3.4-5.0); Albumin/Globulin Ratio 1.3 (1.1-1.8); Alkaline Phosphatase 105 U/L (46-116); Anion Gap 11.6 mEq/L (5-15); Aspartate Amino Transferase 16 U/L (15-37); Bilirubin,Total 0.6 mg/dL (0.2-1.0); Blood Urea Nitrogen 56 mg/dL (7-18); Calcium 8.8 mg/dL (8.5-10.1); Carbon Dioxide 31 mmol/L (21.0-32.0); Chloride 101 mmol/L (98-107); Chol/HDL Ratio 4.4 (1-3.5); Cholesterol 149 mg/dL (140-200); Creatinine,Serum 2.47 mg/dL (0.55-1.02); Estimated Glomerular Filt Rate 19 ml/min (>60); GFR (African American) 23 ML/MIN (>60); Globulin 2.6 gm/dl (1.3-3.2); Glucose 133 mg/dL (74-106); HDL Cholesterol 34 mg/dL (29-89); LDL Cholesterol 74 mg/dL (0-130); Potassium 3.6 mmoL/L (3.5-5.1); Sodium 140 mmol/L (136-145); Triglycerides 204 mg/dL (30-200); VLDL Cholesterol 41 mg/dL (0-40)
[2019-01-22 12:42] LABS: Hemoglobin A1C 5.1 % (0.0-7.0)
== END ==
PROVIDERS: Visit Provider Internal Medicine Adolescent Medicine
DX: E11.9 Type 2 diabetes mellitus without complications (principal); Z79.4 Long term (current) use of insulin; I25.10 Atherosclerotic heart disease of native coronary artery without angina pectoris
CPT/HCPCS: 36415; 80053; 80061; 83036; 85025

== ENCOUNTER → 2019-01-31 15:45 | Outpatient (CLI) | payer MEDICARE, SELFPAY ==
--- NOTE | 2019-01-31 15:49 | XR_ITS ---
XR foot wt bearing RT 3V HISTORY: Follow-up fracture ITS.REASON: fracture/dislocation f/u ORDERING PHYSICIAN: Lani Cloud DPM PATIENT AGE: 68 years COMPARISON: Multiple previous exams FINDINGS: There is a healed fracture involving the distal aspect of the fourth metatarsal. A healing fractures also noted involving the mid aspect of the proximal phalanx of the fifth toe. There is generalized vascular calcification with diffuse osteopenia. IMPRESSION: Healing fracture involves the proximal phalanx of the fifth toe and the distal aspect of the fourth metatarsal overall not significant changed
== END ==
PROVIDERS: PCP Internal Medicine Adolescent Medicine; Visit Provider Podiatrist
DX: S92.301A Fracture of unspecified metatarsal bone(s), right foot, initial encounter for closed fracture (principal); S92.911A Unspecified fracture of right toe(s), initial encounter for closed fracture
CPT/HCPCS: 73630

== ENCOUNTER → 2019-02-05 09:46 | Outpatient (CLI) | payer MEDICARE, SELFPAY ==
[2019-02-05 10:22] LABS: Basophils % 0.5 % (0.1-2.0); Eosinophils # 0.6 K/mm3 (0.0-0.4); Eosinophils % 8.1 % (0.1-12.0); Hemoglobin 9.6 g/dL (12.2-16.2); Lymphocytes # 1.3 K/mm3 (0.7-4.5); Lymphocytes % 17.3 % (10-50); Mean Corpuscular HGB Conc 33.1 g/dL (31.8-35.4); Mean Corpuscular Hemoglobin 30.1 pg (27.0-31.2); Mean Corpuscular Volume 90.8 fl (81-99); Mean Platelet Volume 7.7 fl (7.4-10.4); Monocytes # 0.8 K/mm3 (0.1-1.0); Monocytes % 10.7 % (1.7-9.3); Neutrophils # 4.9 K/mm3 (1.8-7.8); Neutrophils % 63.4 % (37.0-80.0); Platelet Count 233 K/mm3 (142-424); Red Blood Count 3.19 M/mm3 (4.20-5.40); Red Cell Distribution Width 13.2 % (11.5-17.5); White Blood Count 7.7 K/mm3 (4.8-10.8)
[2019-02-05 11:34] LABS: Albumin Level 3.3 gm/dL (3.4-5.0); Anion Gap 12.5 mEq/L (5-15); Blood Urea Nitrogen 46 mg/dL (7-18); Calcium 8.5 mg/dL (8.5-10.1); Carbon Dioxide 30 mmol/L (21.0-32.0); Chloride 103 mmol/L (98-107); Creatinine,Serum 1.99 mg/dL (0.55-1.02); Estimated Glomerular Filt Rate 25 ml/min (>60); GFR (African American) 30 ML/MIN (>60); Glucose 73 mg/dL (74-106); Phosphorous 4.1 mg/dL (2.4-4.9); Potassium 3.5 mmoL/L (3.5-5.1); Sodium 142 mmol/L (136-145)
[2019-02-08 19:54] LABS: Vitamin D 25 Hydroxy 26.8 ng/mL (30.0-100.0)
== END ==
PROVIDERS: Visit Provider Internal Medicine Nephrology
DX: N18.5 Chronic kidney disease, stage 5 (principal)
CPT/HCPCS: 36415; 80069; 82652; 85025

== ENCOUNTER → 2019-02-09 12:22 | Outpatient (POV) | payer MEDICARE, SELFPAY | PROVIDERS: Visit Provider Internal Medicine Nephrology | DX: Z00.00 Encounter for general adult medical examination without abnormal findings (principal) ==

== ENCOUNTER → 2019-02-15 11:00 | Outpatient (POV) | payer MEDICARE, SELFPAY ==
[2019-02-15 11:10] VITALS: BP 165/63; PULSE 69; RESP 18; O2SAT 98; BMI 34.4
--- NOTE | 2019-02-15 11:34 | HMH.PAINSOAP ---
[facility] Pain Management SOAP Note Subjective:: Patient is a pleasant 68-year-old white female who presents today for follow-up. Patient is doing extremely well. She had 90% relief of her SI joint pain after her injections. Patient would like to repeat a left and SI joint injection in the future. She rates her pain today a 5 out of 10. ROS General: no recent weight change, no fever, no sleep disturbances Respiratory: no cough, no shortness of air, no recurring pulmonary infections Cardiovascular/Peripheral Vascular: No chest pain, No palpitations, no edema, no shortness of breath. Gastrointestinal: no incontinence, normal bowel movements reported Genitourinary: no incontinence Musculoskeletal: Back pain, SI joint pain Psychiatric: normal mood/ affect Neurological: [denies weakness in extremities], [denies balance issues] Objective:: Physical Exam General: Alert and oriented x3, no acute distress, pleasant and cooperative, [on room air] Lungs: Resps E/U, Symmetrical chest expansion, Eyes: PERRL Musculoskeletal: Flexion and extension of lumbar spine somewhat guarded secondary to pain, deep tendon reflexes normal, strength in upper and lower extremities [5/5], [abnormal gait noted] positive Wilbur's test, positive SI joint compression test, positive Joshua's test on the left side Neurological: speech clear, medical records specialist equal, no gross sensory deficits Assessment:: Sacroiliitis Plan:: We will schedule left SI joint injection for the patient. Patient is continuing home stretching program along with anti-inflammatories. Dr. Sharpe has reviewed this note and agrees with this plan of care. This note was dictated using voice recognition software and may contain errors or omissions
== END ==
PROVIDERS: PCP Internal Medicine Adolescent Medicine; Visit Provider Clinical Nurse Specialist Family Health
DX: M46.1 Sacroiliitis, not elsewhere classified (principal)
CPT/HCPCS: 99212

== ENCOUNTER → 2019-03-21 14:32 | Outpatient (POV) | payer MEDICARE, SELFPAY ==
[2019-03-21 15:01] VITALS: BP 135/60; PULSE 61; RESP 18; O2SAT 98; BMI 32.9
--- NOTE | 2019-03-21 15:04 | HMH.PAINSOAP ---
[facility] Pain Management SOAP Note Subjective:: Patient is a pleasant 68-year-old white female who presents today for follow-up. She is being treated for left sacroiliitis. Patient received a left SI joint injection at last visit and says that she had 80% relief with this. She says her pain has slowly started to return. She does rate her pain a 6 out of 10 today. Patient would like to try another injection. She is continuing a home stretching program, along with anti-inflammatories. Review of Systems General: No recent weight changes, no fever, no sleep disturbances Respiratory: No cough, no shortness of air, no recurring pulmonary infections Cardiovascular/peripheral vascular: No chest pain, no palpitations, no edema, no shortness of breath Gastrointestinal: No new onset incontinence, normal bowel movements reported Genitourinary: No new onset incontinence Musculoskeletal: Right lower back pain radiating to right buttock Psychiatric: Normal mood/affect Neurological: [Denies weakness in extremities], [denies balance issues] Objective:: Physical exam General: Alert and oriented x3, no acute distress, pleasant and cooperative, [on room air] Lungs: Respirations even and unlabored, symmetrical chest expansion Eyes: PERRL Musculoskeletal: Flexion and extension of lumbar spine somewhat guarded secondary to pain, deep tendon reflexes normal, strength in upper and lower extremities [5/5], [abnormal gait noted], positive compression test, distraction test, Farrah test Neurological: Speech clear, regional coordinator equal, no gross sensory deficit Assessment:: Left sacroiliitis Plan:: We will schedule the patient for another left SI joint injection. Given the efficacy of her last injections I feel this would benefit her. She will continue home stretching program, along with anti-inflammatories. We will follow-up with her after the procedure and reassess her symptoms at that time. She is been instructed to call the office if she has any concerns prior to her next appointment. Dr. Sharpe has reviewed this note and agrees with this plan of care. This note was dictated using voice recognition software and make contain errors or omissions.
--- NOTE | 2019-03-21 15:07 | P.CONS_ITS ---
[facility] Pain Management SOAP Note Subjective:: Patient is a pleasant 68-year-old white female who presents today for follow-up. She is being treated for left sacroiliitis. Patient received a left SI joint injection at last visit and says that she had 80% relief with this. She says her pain has slowly started to return. She does rate her pain a 6 out of 10 today. Patient would like to try another injection. She is continuing a home stretching program, along with anti-inflammatories. Review of Systems General: No recent weight changes, no fever, no sleep disturbances Respiratory: No cough, no shortness of air, no recurring pulmonary infections Cardiovascular/peripheral vascular: No chest pain, no palpitations, no edema, no shortness of breath Gastrointestinal: No new onset incontinence, normal bowel movements reported Genitourinary: No new onset incontinence Musculoskeletal: Right lower back pain radiating to right buttock Psychiatric: Normal mood/affect Neurological: [Denies weakness in extremities], [denies balance issues] Objective:: Physical exam General: Alert and oriented x3, no acute distress, pleasant and cooperative, [on room air] Lungs: Respirations even and unlabored, symmetrical chest expansion Eyes: PERRL Musculoskeletal: Flexion and extension of lumbar spine somewhat guarded secondary to pain, deep tendon reflexes normal, strength in upper and lower extremities [5/5], [abnormal gait noted], positive compression test, distraction test, Farrah test Neurological: Speech clear, flexo folder gluer operator equal, no gross sensory deficit Assessment:: Left sacroiliitis Plan:: We will schedule the patient for another left SI joint injection. Given the efficacy of her last injections I feel this would benefit her. She will continue home stretching program, along with anti-inflammatories. We will follow-up with her after the procedure and reassess her symptoms at that time. She is been instructed to call the office if she has any concerns prior to her next appointment. Dr. Sharpe has reviewed this note and agrees with this plan of care. This note was dictated using voice recognition software and make contain errors or omissions.
== END ==
PROVIDERS: PCP Internal Medicine Adolescent Medicine; Visit Provider Clinical Nurse Specialist Family Health
DX: M46.1 Sacroiliitis, not elsewhere classified (principal)
CPT/HCPCS: 99212

== ENCOUNTER 2019-05-11 14:12 | Observation (INO) ==
--- NOTE | 2019-05-11 14:26 | Emergency Department Note ---
ED Disposition Clinical Impression: Unstable angina Disposition: Admitted as Observation Condition on Discharge: Good - Critical Care Critical Care Time: No Attestation: On , the high probability of a clinically significant, sudden or life threatening deterioration of the following system(s) required my full and direct attention, intervention and personal management. The time I documented below is in addition to time spent performing reported procedures but includes the following listed in this critical care notation. Medical Decision Making - Donnell Inquiry Pt receiving controlled substance: No Vital Signs: 05/11/19 14:20 05/11/19 16:01 05/11/19 17:00 Temperature 97.9 F Temperature Source Oral Pulse Rate [Right Radial] 86 53 L Respiratory Rate 16 18 Blood Pressure [Right Arm] 188/86 H 152/63 H Blood Pressure Mean [Right Arm] 120 92 Blood Pressure Source [Right Arm] Automatic Cuff Automatic Cuff Blood Pressure Position [Right Arm] Sitting Supine 02 Sat by Pulse Oximetry 98 93 L Oxygen Delivery Method Room Air Room Air Room Air 05/11/19 17:50 Temperature 97.9 F Temperature Source Oral Pulse Rate [Right Radial] 59 L Respiratory Rate 19 Blood Pressure [Right Arm] 182/55 H Blood Pressure Mean [Right Arm] 97 Blood Pressure Source [Right Arm] Automatic Cuff Blood Pressure Position [Right Arm] Sitting 02 Sat by Pulse Oximetry 98 Oxygen Delivery Method Room Air - Lab Data Lab Results 05/11/19 14:25: WBC 13.3 H, RBC 3.49 L, Hgb 11.2 L, Hct 33.0 L, MCV 94.7, MCH 32.1 H, MCHC 33.9, RDW 13.3, Plt Count 295, MPV 7.0 L, Neut % (Auto) 73.7, Lymph % (Auto) 16.9, Tillman % (Auto) 8.6, Eos % (Auto) 0.5, Baso % (Auto) 0.3, Neut # (Auto) 9.8 H, Lymph # (Auto) 2.3, Tillman # (Auto) 1.2 H, Eos # (Auto) 0.1, Baso # (Auto) 0.0 05/11/19 14:25: Sodium 138, Potassium 3.8, Chloride 100, Carbon Dioxide 30, Anion Gap 11.8, BUN 41 H, Creatinine 1.82 H, Estimated Creat Clear 39, Estimated GFR 27 L, Est GFR ( Amer) 33 L, Glucose 156 H, Calcium 8.9, Troponin I < 0.02 05/11/19 17:17: Troponin I 0.03 Result diagrams: 05/11/19 14:25 05/11/19 14:25 Orders (Tests/Meds): ED MEDICATIONS Generic Name Dose Route Start Last Admin Trade Name Freq PRN Reason Stop Dose Admin Diphenhydramine HCl 50 mg 05/12/19 09:00 Benadryl 50mg/1ml Vial IV 05/12/19 09:01 ONCE ONE Sodium Chloride 1,000 mls @ 50 mls/hr 05/11/19 16:30 05/11/19 18:20 Sod Chlor 0.9% 1000ml Bag IV 06/10/19 16:29 50 mls/hr .Q20H MARCIA Administration Nitroglycerin 0.4 mg 05/11/19 15:10 05/11/19 15:32 Nitrostat 0.4mg Sl Tablet SL 06/10/19 15:09 0.4 mg Q5MINP PRN Administration Chest Pain Discontinued Medications Generic Name Dose Route Start Last Admin Trade Name Freq PRN Reason Stop Dose Admin Aspirin 243 mg 05/11/19 15:11 05/11/19 15:31 Aspirin 81mg Chewable Tablet PO 05/11/19 15:12 243 mg ONCE ONE Administration ORDERS Category Date Time Status Consult to Cardiology [CONS] Routine Cons 05/11/19 15:14 Active Basic Metabolic Panel [facility] Lab 05/12/19 06:00 Ordered Complete Blood Count Auto Diff [facility] Lab 05/12/19 06:00 Ordered Lipid Panel [facility] Lab 05/12/19 06:00 Ordered Liver Panel [facility] Lab 05/12/19 06:00 Ordered - Radiology Data #1 Image(s): Chest Image Reviewed: Yes I reviewed the patient's radiology image prior sternotomy, NAD - ECG Data Tracing #1 EKG interpreted by Fran Edwards MD: Rhythm: sinus Rate: 84 Crawford: Left Ectopy: none Conduction: First-degree AV block, left bundle branch block (old) Prior electrocardiagrams reviewed. No change from prior tracings. - Physician Consults Physician Consulted: CELENA Hill for Dr. Pineda Time: 16:41 Reason -: Cardiology Eval/Care Comment/Response: She saw the patient and discussed with Dr. Pineda. They request admission, plan cardiac cath tomorrow. Additional Consult: Francois Time: 16:42 Reason -: Admission Comment/Response: Agrees to admit the patient to the hospital. We discussed the patient's clinical information, including history, exam, laboratory and radiology results and ED course. Per hospital procedure, I will write temporary bridge inpatient orders on the patient. - SIMONA Score for Non-Stemi Age of Patient: 70-79 years old Heart Rate: 70-89 bpm Systolic Blood Pressure: 160-199 mmHg Serum Creatinine: 1.60-1.99 mg/dl CHF Killip Class: I-No CHF Other Risk Factors: None Non-Stemi Risk Score: 107 General Adult HPI - General Chief complaint: Chest Pain Stated complaint: CP Time Seen by Provider: 05/11/19 14:54 - History of Present Illness HPI narrative: An hour or 2 was getting ready to go to the store when she developed burning in her chest and discomfort in her left arm, left neck, and left gums. Developed a headache for which she took for Tylenol. She has a history of coronary artery disease and four-vessel coronary artery bypass surgery. She does not have nitroglycerin at home. She is on 81 mg aspirin every morning and did take it th is morning. Pain was 10/10, now the burning in her chest is gone, but the other pain remains approximately 7/10. She sees Dr. Pineda, has not been seen in his office since last year. Has not been having any major problems. Denies shortness of breath, diaphoresis, or nausea with her symptoms today. - Related Data Home Medications Medication Instructions Recorded Confirmed acetaminophen 325 mg tablet 500 mg PO Q6H PRN 09/17/17 05/11/19 aspirin 81 mg tablet,delayed 81 mg PO QDAY 09/17/17 05/11/19 release cholecalciferol (vitamin D3) 2,000 2,000 unit PO DAILY 09/17/17 05/11/19 unit capsule clopidogrel 75 mg tablet 75 mg PO DAILY 09/17/17 05/11/19 ferrous sulfate ER 142 mg (45 mg 142 mg PO QDAY tab 09/17/17 05/11/19 iron) tablet,extended release furosemide 40 mg tablet 40 mg PO DAILY 09/17/17 05/11/19 sitagliptin 50 mg tablet 50 mg PO DAILY 09/17/17 05/11/19 famotidine 20 mg tablet 20 mg PO BID tab 09/18/17 05/11/19 gabapentin 100 mg capsule 100 mg PO TID cap 09/18/17 05/11/19 insulin human U-100 NPH-regulr 20 unit SUB-Q BID ml 09/18/17 05/11/19 70-30 mix 100 unit/mL subcutaneous susp tramadol 50 mg tablet 100 mg PO Q6HP PRN tab 09/18/17 05/11/19 Pravastatin Sodium [Pravachol] 80 mg PO QHS 05/28/18 05/11/19 citalopram 20 mg tablet 20 mg PO DAILY 90 Days tab 09/16/18 05/11/19 carvedilol 6.25 mg tablet 6.25 mg PO DAILY tab 01/31/19 05/11/19 losartan 50 mg tablet 50 mg PO DAILY tab 01/31/19 05/11/19 Amlodipine Besylate [Norvasc 5mg 5 mg PO DAILY 05/06/19 05/11/19 tablet] Previous Rx's Medication Instructions Recorded diclofenac 1 % topical gel 4 g TOPICAL QID PRN #30 g 05/10/19 Allergies Allergy/AdvReac Type Severity Reaction Status Date / Time fentanyl [FENTANYL] Allergy Unknown Verified 05/10/19 09:09 latex [LATEX] Allergy Unknown Verified 05/10/19 09:09 [facility] History - Hepatitis A Screen Attestation statement:: This patient has been screened for Hepatitis A risk factors. I have reviewed the patient's past medical history: Yes Medical History: Reports:: Coronary Artery Disease, Diabetes Mellitus Type 1, Hyperlipidemia, Hypertension, Myocardial Infarction, Osteoporosis Denies:: Cancer, Diabetes Mellitus Type 2, MRSA, Seizures Other Medical History: Reports: Anemia, Arthritis, Cataracts, Osteoporosis, Sinus Problems. Denies: Blood Transfusion Reaction Laterality Cases: Other Surgeries: Yes: Cardiac Catheterization, Cardiac Surgery, Coronary Stent, Dilation and Curettage, Open Heart Surgery, Tubal Ligation, Other Amputation: No Fractures: No - Social History Smoking Status: Never smoker Alcohol Intake: never Alcohol Intake Frequency:: other Occupational Status: other Housing: house Household Members: children Family Hx:: Coronary Artery Disease, Heart Attack, Hyperlipidemia, Hypertension Comment: mother and father both had heart disease ROS Obtained: Yes All systems reviewed & no additional complaints - Cardiovascular Cardiovascular: Reports chest pain, Denies diaphoresis, Reports radiating jaw, neck or arm pain - Respiratory Respiratory: No dyspnea - Gastrointestinal Gastrointestingal: Denies: abdominal pain, nausea, vomiting - Neurologic Neurologic: Reports headache(s) Physical Exam - General General appearance: alert, in no apparent distress - Head Head exam: atraumatic, normocephalic - Eye Eye exam: Present: normal appearance, PERRL, EOMI - ENT ENT exam: Present: mucous membranes moist - Neck Neck exam: Present: normal inspection, trachea midline - Chest Chest inspection: Present: normal inspection, symmetric chest wall rise - Respiratory Respiratory exam: Present: normal lung sounds bilaterally. Absent: respiratory distress - Cardiovascular Cardiovascular exam: Present: regular rate, normal rhythm, normal heart sounds - Abdominal Exam Abdominal exam: Present: soft, normal bowel sounds. Absent: distention, tenderness, guarding - Extremities Exam Extremities exam: Present: normal inspection, other (normal peripheral pulses) - Neurological Exam Neurological exam: Present: alert, oriented X3 - Psychiatric Psychiatric exam: Present: normal affect, normal mood - Skin Skin exam: Present: warm, dry
[2019-05-11 14:58] LABS: Basophils % 0.3 % (0.1-2.0); Eosinophils # 0.1 K/mm3 (0.0-0.4); Eosinophils % 0.5 % (0.1-12.0); Hemoglobin 11.2 g/dL (12.2-16.2); Lymphocytes # 2.3 K/mm3 (0.7-4.5); Lymphocytes % 16.9 % (10-50); Mean Corpuscular HGB Conc 33.9 g/dL (31.8-35.4); Mean Corpuscular Volume 94.7 fl (81-99); Monocytes # 1.2 K/mm3 (0.1-1.0); Monocytes % 8.6 % (1.7-9.3); Neutrophils # 9.8 K/mm3 (1.8-7.8); Neutrophils % 73.7 % (37.0-80.0); Platelet Count 295 K/mm3 (142-424); Red Blood Count 3.49 M/mm3 (4.20-5.40); Red Cell Distribution Width 13.3 % (11.5-17.5); White Blood Count 13.3 K/mm3 (4.8-10.8)
[2019-05-11 15:06] LABS: Anion Gap 11.8 mEq/L (5-15); Blood Urea Nitrogen 41 mg/dL (7-18); Calcium 8.9 mg/dL (8.5-10.1); Carbon Dioxide 30 mmol/L (21.0-32.0); Chloride 100 mmol/L (98-107); Glucose 156 mg/dL (74-106); Sodium 138 mmol/L (136-145)
--- NOTE | 2019-05-11 16:12 | Consult Report ---
History of Present Illness Consult date: 05/11/19 Requesting physician: Fran Edwards Consult reason: chest pain Chief complaint: Chest pain Additional Medical History:: 1. Coronary artery disease status post stenting and coronary artery bypass grafting 2. Hypertension 3. Hyperlipidemia 4. Left bundle branch block 5. Diabetes 6. Myocardial infarction [facility] 05/2017 1. Moderate pulmonary hypertension as described above 2. Elevated left-sided filling pressures consistent with diastolic dysfunction and left-sided fluid overload 3. Severe [place] coronary arteries as described from heart catheter last year 4. Patent DREW to the LAD 5. Patent saphenous vein graft to the first obtuse marginal artery then skipping to the second obtuse marginal artery 6. Patent saphenous vein graft to the distal dominant right coronary artery which supplied a critically disease large posterior descending artery and a moderately diseased posterior lateral ventricular branch 7. Successful stenting of the critically disease posterior descending artery via the saphenous vein graft. 99% stenosis reduced to 10% with 1 drug-eluting stent 8. Successful angioplasty of the posterior lateral ventricular branch via the saphenous vein graft 9. Preserved ejection fraction with regional wall motion abnormality 10. Patient is known to have normal renal arteries from last year's heart catheter History of present illness: This is a 68-year-old white female who presented to the emergency department with complaints of chest pain. The patient states that she was getting ready to go to the store when she had sudden onset of chest pain. The patient does report that she had some mild chest pressure and burning yesterday but this really did not last long and was not bothersome. Today when she was getting ready to go to the store she had sudden onset of severe 10 out of 10 chest pain. She states it was a burning pressure sensation. It radiated to her left arm, left side of her neck, and left jaw. She states the gums on the left side of her mouth were also aching. The patient states that she had a headache for which she took Tylenol. The symptoms lasted for about 30 minutes to an hour and nothing was really helping to improve her pain. She then decided to come into the emergency department. She states the nitroglycerin did help with the burning in her chest but she is still having the pressure in her chest. She rates this about a 7 out of 10 in intensity. Nothing worsened her pain and nothing helped to improve her pain while she was at home. The patient does have a history of coronary disease with coronary artery bypass grafting and stenting. She is not been seen in our office for over a year. She denies any associated shortness of breath, diaphoresis or nausea with her symptoms. She states that she was having the same jaw and arm pain when she required coronary artery bypass grafting. She denies any fever, chills, nausea, vomiting, diarrhea, PND or orthopnea. [facility] History I have reviewed the patient's past medical history: Yes Medical History: Reports:: Coronary Artery Disease, Diabetes Mellitus Type 1, Hyperlipidemia, Hypertension, Myocardial Infarction, Osteoporosis Denies:: Cancer, Diabetes Mellitus Type 2, MRSA, Seizures *Have you ever received a pneumonia vaccine?: Yes *Have you received a flu vaccine this season?: Yes Other Medical History: Reports: Anemia, Arthritis, Cataracts, Osteoporosis, Sinus Problems. Denies: Blood Transfusion Reaction Laterality Cases: Right: Breast Biopsy Other Surgeries: Yes: Cardiac Catheterization, Cardiac Surgery, Coronary Stent, Dilation and Curettage, Open Heart Surgery, Tubal Ligation, Other Amputation: No Fractures: No - *Social History Smoking Status: Never smoker Alcohol Intake: never Alcohol Intake Frequency:: other *Occupational Status:: other Housing: house Household Members: children *Travel in the last 8 weeks: None Family Hx:: Coronary Artery Disease, Heart Attack, Hyperlipidemia, Hypertension Meds Home Medications Medication Instructions Recorded Confirmed Type acetaminophen 325 mg tablet 500 mg PO Q6H PRN 09/17/17 05/10/19 History aspirin 81 mg tablet,delayed 81 mg PO QDAY 09/17/17 05/10/19 History release cholecalciferol (vitamin D3) 2,000 2,000 unit PO ONCE 09/17/17 05/10/19 History unit capsule clopidogrel 75 mg tablet 75 mg PO ONCE 09/17/17 05/10/19 History ferrous sulfate ER 142 mg (45 mg 142 mg PO QDAY tab 09/17/17 05/10/19 History iron) tablet,extended release furosemide 40 mg tablet 40 mg PO ONCE 09/17/17 05/10/19 History sitagliptin 50 mg tablet 50 mg PO ONCE 09/17/17 05/10/19 History famotidine 20 mg tablet 20 mg PO BID tab 09/18/17 05/10/19 History gabapentin 100 mg capsule 100 mg PO TID cap 09/18/17 05/10/19 History insulin human U-100 NPH-regulr 20 unit SUB-Q BID ml 09/18/17 05/10/19 History 70-30 mix 100 unit/mL subcutaneous susp tramadol 50 mg tablet 100 mg PO ONCE tab 09/18/17 05/10/19 History Pravastatin Sodium [Pravachol] 80 mg PO QHS 05/28/18 05/10/19 History citalopram 20 mg tablet 20 mg PO DAILY 90 Days tab 09/16/18 05/10/19 History carvedilol 6.25 mg tablet 6.25 mg PO ONCE tab 01/31/19 05/10/19 History losartan 50 mg tablet 50 mg PO DAILY tab 01/31/19 05/10/19 History Amlodipine Besylate [Norvasc 5mg See Rx Instructions .ROUTE .COMPLEX 05/06/19 05/10/19 History tablet] diclofenac 1 % topical gel 4 g TOPICAL QID PRN #30 g 05/10/19 05/10/19 Rx Allergies Allergy/AdvReac Type Severity Reaction Status Date / Time fentanyl [FENTANYL] Allergy Unknown Verified 05/10/19 09:09 latex [LATEX] Allergy Unknown Verified 05/10/19 09:09 Review of Systems - Review of Systems Review of systems:: pertinent systems reviewed and negative unless documented below - *Cardiovascular Reports chest pain, Reports chest pain at rest, Reports chest pain with activity, Reports radiating jaw, neck or arm pain - *Neurologic Reports headache(s) Exam Vital signs and Labs for Last 24 Hours: Temp Pulse Resp BP Pulse Ox 97.9 F 53 L 18 152/63 H 93 L 05/11/19 14:20 05/11/19 16:01 05/11/19 16:01 05/11/19 16:01 05/11/19 16:01 Laboratory Results - last 24 hr 05/11/19 14:25: WBC 13.3 H, RBC 3.49 L, Hgb 11.2 L, Hct 33.0 L, MCV 94.7, MCH 32.1 H, MCHC 33.9, RDW 13.3, Plt Count 295, MPV 7.0 L, Neut % (Auto) 73.7, Lymph % (Auto) 16.9, [place] % (Auto) 8.6, Eos % (Auto) 0.5, Baso % (Auto) 0.3, Neut # (Auto) 9.8 H, Lymph # (Auto) 2.3, [place] # (Auto) 1.2 H, Eos # (Auto) 0.1, Baso # (Auto) 0.0 05/11/19 14:25: Sodium 138, Potassium 3.8, Chloride 100, Carbon Dioxide 30, Anion Gap 11.8, BUN 41 H, Creatinine 1.82 H, Estimated Creat Clear 39, Estimated GFR 27 L, Est GFR ( Amer) 33 L, Glucose 156 H, Calcium 8.9, Troponin I < 0.02 I & O for Last 24 hours: Intake & Output 05/08/19 05/09/19 05/10/19 05/11/19 23:59 23:59 23:59 23:59 Weight 190 lb Narrative: EKG is sinus rhythm with left bundle branch block - Constitutional no acute distress - *Routine HEENT Exam Head: Present: normocephalic, atraumatic Eye: Present: EOMI, PERRL ENT: Present: mucous membranes moist - *Routine Neck Exam Present: supple, full ROM, normal carotid upstroke. Absent: JVD, carotid bruit, lymphadenopathy - *Routine Respiratory Exam Present: CTA bilaterally - *Routine Cardiovascular Exam Present: RRR, Normal S1, Normal S2. Absent: murmur - *Routine Abdominal Exam Present: soft, normoactive bowel sounds. Absent: tenderness, distended - *Routine Extremities Exam Present: full ROM, pulses intact, normal capillary refill. Absent: cyanosis, clubbing, edema - *Routine Skin Exam Present: intact, warm. Absent: erythema, rash - *Routine Neurological Exam Present: alert, oriented X3, CN II-XII intact. Absent: sensory deficit, motor deficit - Routine Psychiatric Exam Present: normal affect, normal thought process - Detailed Eye Exam Eyelids: Left normal inspection Assessment and Plan (1) Unstable angina Current visit: Yes Status: Acute Category: Medical Code(s): I20.0 - Unstable angina (2) History of four vessel coronary artery bypass graft Current visit: Yes Status: Chronic Category: Surgical Code(s): Z95.1 - Presence of aortocoronary bypass graft (3) Coronary artery disease Current visit: No Status: Chronic Qualifiers: Coronary Disease-Associated Artery/Lesion type: unspecified vessel or lesion type [place] vs. transplanted heart: [place] heart Associated angina: with stable angina Qualified Code(s): I25.118 - Atherosclerotic heart disease of [place] coronary artery with other forms of angina pectoris Category: Medical Code(s): I25.10 - Atherosclerotic heart disease of [place] coronary artery without angina pectoris (4) Hyperlipidemia Current visit: No Status: Chronic Qualifiers: Hyperlipidemia type: mixed hyperlipidemia Qualified Code(s): E78.2 - Mixed hyperlipidemia Category: Medical Code(s): E78.5 - Hyperlipidemia, unspecified (5) Hypertension Current visit: No Status: Chronic Qualifiers: Hypertension type: essential hypertension Qualified Code(s): I10 - Essential (primary) hypertension Category: Medical Code(s): I10 - Essential (primary) hypertension (6) Diabetes mellitus Current visit: No Status: Chronic Qualifiers: Diabetes mellitus type: type 2 Diabetes mellitus meterman insulin use: with fpc use Diabetes mellitus complication status: with neurologic complications Diabetes mellitus complication detail: with polyneuropathy Qualified Code(s): E11.42 - Type 2 diabetes mellitus with diabetic polyneuropathy; Z79.4 - alf (current) use of insulin Category: Medical Code(s): E11.9 - Type 2 diabetes mellitus without complications - Assessment and plan all Dx Assessment and Plan for all problems:: Plan: 1. Patient was admitted to the hospital with chest pain. The patient is felt to be having unstable angina. Her initial troponin is negative. We will continue to do serial troponins to rule out an ID 2. Given the patient's unstable angina and history of coronary artery disease with coronary artery bypass grafting and subsequent stenting as well as diabetes, we will plan to proceed with left cardiac catheterization in the morning to evaluate her coronary artery disease. 3. The patient has been educated on the risks and benefits of proceeding with left cardiac catheterization. Patient verbalized understanding is agreeable to proceeding with the procedure. 4. The patient will remain n.p.o. after midnight in preparation for left cardiac catheterization. 5. The patient will get premedications per standing order prior to the left cardiac catheterization. 6. Echocardiogram to evaluate her LV function. 7. Continue daily aspirin 8. Liver and lipid panel in the morning. 9. The patient does have chronic kidney disease. Her creatinine is 1.8 which is stable for her. We will repeat a BMP in the morning and give the patient IV fluids prior to her left cardiac catheterization to avoid contrast nephropathy. 10. Further recommendations were made pending the patient's response to treatm ent. Thank you for the opportunity to help participate in the care of this patient.
--- NOTE | 2019-05-11 17:41 | History & Physical Report ---
*Admission Date: 05/11/19 *Chief complaint: Burning and chest *History of present illness: This is a 68-year-old white female who presented to the emergency department with complaints of chest pain. The patient states that she was getting ready to go to the store when she had sudden onset of chest pain. The patient does report that she had some mild chest pressure and burning yesterday but this really did not last long and was not bothersome. Today when she was getting ready to go to the store she had sudden onset of severe 10 out of 10 chest pain. She states it was a burning pressure sensation. It radiated to her left arm, left side of her neck, and left jaw. She states the gums on the left side of her mouth were also aching. The patient states that she had a headache for which she took Tylenol. The symptoms lasted for about 30 minutes to an hour and nothing was really helping to improve her pain. She then decided to come into the emergency department. She states the nitroglycerin did help with the burning in her chest but she is still having the pressure in her chest. She rates this about a 7 out of 10 in intensity. Nothing worsened her pain and nothing helped to improve her pain while she was at home. The patient does have a history of coronary disease with coronary artery bypass grafting and stenting. She is not been seen in our office for over a year. She denies any associated shortness of breath, diaphoresis or nausea with her symptoms. She states that she was having the same jaw and arm pain when she required coronary artery bypass grafting. She denies any fever, chills, nausea, vomiting, diarrhea, PND or orthopnea. Above note per cardiology [facility] History I have reviewed the patient's past medical history: Yes Medical History: Reports:: Coronary Artery Disease, Diabetes Mellitus Type 1, Hyperlipidemia, Hypertension, Myocardial Infarction, Osteoporosis Denies:: Cancer, Diabetes Mellitus Type 2, MRSA, Seizures *Have you ever received a pneumonia vaccine?: Yes *Have you received a flu vaccine this season?: Yes Other Medical History: Reports: Anemia, Arthritis, Cataracts, Osteoporosis, Sinus Problems. Denies: Blood Transfusion Reaction Laterality Cases: Right: Breast Biopsy Other Surgeries: Yes: Cardiac Catheterization, Cardiac Surgery, Coronary Stent, Dilation and Curettage, Open Heart Surgery, Tubal Ligation, Other Amputation: No Fractures: No - *Social History Smoking Status: Never smoker Alcohol Intake: never Alcohol Intake Frequency:: other *Occupational Status:: other Housing: house Household Members: children *Travel in the last 8 weeks: None Family Hx:: Coronary Artery Disease, Heart Attack, Hyperlipidemia, Hypertension Review of Systems - Review of Systems Review of systems:: pertinent systems reviewed and negative unless documented below Currently on floor patient is pain-free, denies shortness of air, chest pain, chest burning or dyspnea - *Neurologic Reports headache(s) Meds Home Medications Medication Instructions Recorded Confirmed Type acetaminophen 325 mg tablet 500 mg PO Q6H PRN 09/17/17 05/11/19 History aspirin 81 mg tablet,delayed 81 mg PO QDAY 09/17/17 05/11/19 History release cholecalciferol (vitamin D3) 2,000 2,000 unit PO ONCE 09/17/17 05/11/19 History unit capsule clopidogrel 75 mg tablet 75 mg PO ONCE 09/17/17 05/11/19 History ferrous sulfate ER 142 mg (45 mg 142 mg PO QDAY tab 09/17/17 05/11/19 History iron) tablet,extended release furosemide 40 mg tablet 40 mg PO ONCE 09/17/17 05/11/19 History sitagliptin 50 mg tablet 50 mg PO ONCE 09/17/17 05/11/19 History famotidine 20 mg tablet 20 mg PO BID tab 09/18/17 05/11/19 History gabapentin 100 mg capsule 100 mg PO TID cap 09/18/17 05/11/19 History insulin human U-100 NPH-regulr 20 unit SUB-Q BID ml 09/18/17 05/11/19 History 70-30 mix 100 unit/mL subcutaneous susp tramadol 50 mg tablet 100 mg PO ONCE tab 09/18/17 05/11/19 History Pravastatin Sodium [Pravachol] 80 mg PO QHS 05/28/18 05/11/19 History citalopram 20 mg tablet 20 mg PO DAILY 90 Days tab 09/16/18 05/11/19 History carvedilol 6.25 mg tablet 6.25 mg PO ONCE tab 01/31/19 05/11/19 History losartan 50 mg tablet 50 mg PO DAILY tab 01/31/19 05/11/19 History Amlodipine Besylate [Norvasc 5mg See Rx Instructions .ROUTE .COMPLEX 05/06/19 05/11/19 History tablet] diclofenac 1 % topical gel 4 g TOPICAL QID PRN #30 g 05/10/19 05/11/19 Rx Allergies Allergy/AdvReac Type Severity Reaction Status Date / Time fentanyl [FENTANYL] Allergy Unknown Verified 05/10/19 09:09 latex [LATEX] Allergy Unknown Verified 05/10/19 09:09 Exam Vital signs and Labs for Last 24 Hours: Temp Pulse Resp BP Pulse Ox 97.9 F 53 L 18 152/63 H 93 L 05/11/19 14:20 05/11/19 16:01 05/11/19 16:01 05/11/19 16:01 05/11/19 16:01 Laboratory Results - last 24 hr 05/11/19 14:25: WBC 13.3 H, RBC 3.49 L, Hgb 11.2 L, Hct 33.0 L, MCV 94.7, MCH 32.1 H, MCHC 33.9, RDW 13.3, Plt Count 295, MPV 7.0 L, Neut % (Auto) 73.7, Lymph % (Auto) 16.9, [place] % (Auto) 8.6, Eos % (Auto) 0.5, Baso % (Auto) 0.3, Neut # (Auto) 9.8 H, Lymph # (Auto) 2.3, [place] # (Auto) 1.2 H, Eos # (Auto) 0.1, Baso # (Auto) 0.0 05/11/19 14:25: Sodium 138, Potassium 3.8, Chloride 100, Carbon Dioxide 30, Anion Gap 11.8, BUN 41 H, Creatinine 1.82 H, Estimated Creat Clear 39, Estimated GFR 27 L, Est GFR ( Amer) 33 L, Glucose 156 H, Calcium 8.9, Troponin I < 0.02 I & O for Last 24 hours: Intake & Output 05/09/19 05/10/19 05/11/19 05/12/19 11:59 11:59 11:59 11:59 Weight 190 lb Narrative: Heart rate regular. Lungs clear. Abdomen obese but soft. Ankle edema as previously noted. ENT exam clear. No JVD. Oropharynx clear. Neurologic exam intact, oriented x3. Assessment and Plan (1) Unstable angina Current visit: Yes Status: Acute Category: Medical Code(s): I20.0 - Unstable angina (2) History of four vessel coronary artery bypass graft Current visit: Yes Status: Chronic Category: Surgical Code(s): Z95.1 - Presence of aortocoronary bypass graft (3) Coronary artery disease Current visit: No Status: Chronic Qualifiers: Coronary Disease-Associated Artery/Lesion type: unspecified vessel or lesion type [place] vs. transplanted heart: [place] heart Associated angina: with stable angina Qualified Code(s): I25.118 - Atherosclerotic heart disease of [place] coronary artery with other forms of angina pectoris Category: Medical Code(s): I25.10 - Atherosclerotic heart disease of [place] coronary artery without angina pectoris (4) Hyperlipidemia Current visit: No Status: Chronic Qualifiers: Hyperlipidemia type: mixed hyperlipidemia Qualified Code(s): E78.2 - Mixed hyperlipidemia Category: Medical Code(s): E78.5 - Hyperlipidemia, unspecified (5) Hypertension Current visit: No Status: Chronic Qualifiers: Hypertension type: essential hypertension Qualified Code(s): I10 - Essential (primary) hypertension Category: Medical Code(s): I10 - Essential (primary) hypertension (6) Diabetes mellitus Current visit: No Status: Chronic Qualifiers: Diabetes mellitus type: type 2 Diabetes mellitus usp insulin use: with usp use Diabetes mellitus complication status: with neurologic complications Diabetes mellitus complication detail: with polyneuropathy Qualified Code(s): E11.42 - Type 2 diabetes mellitus with diabetic polyneuropathy; Z79.4 - predatory animal 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 Patient was admitted to the hospital with chest pain. The patient is felt to be having unstable angina. Her initial troponin is negative. We will continue to do serial troponins to rule out an SC 2. Given the patient's unstable angina and history of coronary artery disease w ith coronary artery bypass grafting and subsequent stenting as well as diabetes, we will plan to proceed with left cardiac catheterization in the morning to evaluate her coronary artery disease. 3. The patient has been educated on the risks and benefits of proceeding with left cardiac catheterization. Patient verbalized understanding is agreeable to proceeding with the procedure. 4. The patient will remain n.p.o. after midnight in preparation for left cardiac catheterization. 5. The patient will get premedications per standing order prior to the left cardiac catheterization. 6. Echocardiogram to evaluate her LV function. 7. Continue daily aspirin 8. Liver and lipid panel in the morning. 9. The patient does have chronic kidney disease. Her creatinine is 1.8 which is stable for her. We will repeat a BMP in the morning and give the patient IV fluids prior to her left cardiac catheterization to avoid contrast nephropathy. 10. Further recommendations were made pending the patient's response to treatment. Above note per cardiology. Agree with need for heart cath. Discussed with patient and daughter.
[2019-05-12 06:22] LABS: Basophils % 0.3 % (0.1-2.0); Eosinophils # 0.1 K/mm3 (0.0-0.4); Eosinophils % 1.1 % (0.1-12.0); Hematocrit 30.3 % (37.0-47.0); Lymphocytes # 1.5 K/mm3 (0.7-4.5); Lymphocytes % 18.1 % (10-50); Mean Corpuscular HGB Conc 32.9 g/dL (31.8-35.4); Mean Corpuscular Volume 95.7 fl (81-99); Mean Platelet Volume 7.4 fl (7.4-10.4); Monocytes # 0.8 K/mm3 (0.1-1.0); Monocytes % 9.8 % (1.7-9.3); Neutrophils # 5.9 K/mm3 (1.8-7.8); Neutrophils % 70.7 % (37.0-80.0); Platelet Count 224 K/mm3 (142-424); Red Blood Count 3.17 M/mm3 (4.20-5.40); Red Cell Distribution Width 13.3 % (11.5-17.5); White Blood Count 8.3 K/mm3 (4.8-10.8)
[2019-05-12 07:00] LABS: Albumin Level 2.9 gm/dL (3.4-5.0); Anion Gap 11.2 mEq/L (5-15); Bilirubin,Direct 0.1 mg/dL (0.0-0.2); Bilirubin,Indirect 0.2 mg/dL (0.0-0.9); Bilirubin,Total 0.3 mg/dL (0.2-1.0); Calcium 8.3 mg/dL (8.5-10.1); Chol/HDL Ratio 3.8 (1-3.5); Total Protein,Serum 5.7 gm/dL (6.4-8.2)
[2019-05-12 07:05] LABS: Hemoglobin 9.9 g/dL (12.2-16.2)
--- NOTE | 2019-05-12 07:31 | Pharmacy Consult Notes ---
[facility] Pharmacy VTE Monitoring - Patient Demographics Admission date: 05/11/19 Report Date: 05/12/19 Time: 07:31 Allergies/Adverse Reactions: Patient Allergies fentanyl [FENTANYL] Allergy (Unknown, Verified 05/10/19 09:09) latex [LATEX] Allergy (Unknown, Verified 05/10/19 09:09) Height: 1.57 m Weight: 85.757 kg Patient Problems: Current Active Problems Unstable angina (Acute) History of four vessel coronary artery bypass graft (Chronic) - VTE Risk Labs: VTE Related Lab Results Hgb 9.9 g/dL (12.2-16.2) L D 05/12/19 05:50 Hct 30.3 % (37.0-47.0) L 05/12/19 05:50 Plt Count 224 K/mm3 (142-424) 05/12/19 05:50 BUN 42 mg/dL (7-18) H 05/12/19 05:50 Creatinine 1.76 mg/dL (0.55-1.02) H 05/12/19 05:50 Estimated Creat Clear 40 mL/min (50-200) 05/12/19 05:50 Was VTE Risk Assessment Performed: Yes VTE Score: 5 VTE Risk Level: Low Risk Clinical Trial Participant: No - Prophylaxis VTE Prophylaxis Ordered?: Yes Types of VTE Prophylaxis: TEDS Knee High
--- NOTE | 2019-05-12 08:57 | Progress Note ---
Internal Medicine - PN: Subj *Date: 05/12/19 *Time: 09:06 Interval history: Ms. Marie is remained stable overnight. Blood pressure is little more elevated this morning. Planning to go for heart cath. Denies current symptoms of chest pain, referred pains to neck, arm pain. No nausea, vomiting, diarrhea. Pleasant on interview this morning. No acute distress Exam Vital signs and Labs for Last 24 Hours: Temp Pulse Resp BP Pulse Ox 98.3 F 62 18 168/56 H 95 05/12/19 08:00 05/12/19 08:00 05/12/19 08:00 05/12/19 08:00 05/12/19 08:00 Laboratory Results - last 24 hr 05/11/19 14:25: WBC 13.3 H, RBC 3.49 L, Hgb 11.2 L, Hct 33.0 L, MCV 94.7, MCH 32.1 H, MCHC 33.9, RDW 13.3, Plt Count 295, MPV 7.0 L, Neut % (Auto) 73.7, Lymph % (Auto) 16.9, [place] % (Auto) 8.6, Eos % (Auto) 0.5, Baso % (Auto) 0.3, Neut # (Auto) 9.8 H, Lymph # (Auto) 2.3, [place] # (Auto) 1.2 H, Eos # (Auto) 0.1, Baso # (Auto) 0.0 05/11/19 14:25: Sodium 138, Potassium 3.8, Chloride 100, Carbon Dioxide 30, Anion Gap 11.8, BUN 41 H, Creatinine 1.82 H, Estimated Creat Clear 39, Estimated GFR 27 L, Est GFR ( Amer) 33 L, Glucose 156 H, Calcium 8.9, Troponin I < 0.02 05/11/19 17:17: Troponin I 0.03 05/11/19 20:11: POC Glucose 182 H 05/12/19 05:24: POC Glucose 262 H 05/12/19 05:50: WBC 8.3 D, RBC 3.17 L, Hgb 9.9 L D, Hct 30.3 L, MCV 95.7, MCH 31.5 H, MCHC 32.9, RDW 13.3, Plt Count 224, MPV 7.4, Neut % (Auto) 70.7, Lymph % (Auto) 18.1, [place] % (Auto) 9.8 H, Eos % (Auto) 1.1, Baso % (Auto) 0.3, Neut # ( Auto) 5.9, Lymph # (Auto) 1.5, [place] # (Auto) 0.8, Eos # (Auto) 0.1, Baso # (Auto) 0.0 05/12/19 05:50: Sodium 139, Potassium 4.2, Chloride 102, Carbon Dioxide 30, Anion Gap 11.2, BUN 42 H, Creatinine 1.76 H, Estimated Creat Clear 40, Estimated GFR 29 L, Est GFR ( Amer) 35 L, Glucose 227 H D, Calcium 8.3 L, Total Bilirubin 0.3, Direct Bilirubin 0.1, Indirect Bilirubin 0.2, AST 19, ALT 20, Alkaline Phosphatase 103, Total Protein 5.7 L, Albumin 2.9 L, Triglycerides 175, Cholesterol 150, LDL Cholesterol 75, VLDL Cholesterol 35, HDL Cholesterol 40, Cholesterol/HDL Ratio 3.8 H I & O for Last 24 hours: Intake & Output 05/09/19 05/10/19 05/11/19 05/12/19 23:59 23:59 23:59 23:59 Intake Total 428 / 428 Balance 428 / 428 Weight 85.474 kg 85.757 kg Narrative: Heart rate regular. Systolic murmur grade 3/6 best heard at left sternal border Lungs clear. No wheeze or rhonchi Abdomen obese but soft. Ankle edema stable, wraps on legs ENT exam clear. oropharynx clear, MMM No JVD. Neurologic exam intact, oriented x3. Assessment and Plan (1) Unstable angina Current visit: Yes Status: Acute Category: Medical Code(s): I20.0 - Unstable angina (2) History of four vessel coronary artery bypass graft Current visit: Yes Status: Chronic Category: Surgical Code(s): Z95.1 - Presence of aortocoronary bypass graft (3) Coronary artery disease Current visit: No Status: Chronic Qualifiers: Coronary Disease-Associated Artery/Lesion type: unspecified vessel or lesion type [place] vs. transplanted heart: [place] heart Associated angina: with stable angina Qualified Code(s): I25.118 - Atherosclerotic heart disease of [place] coronary artery with other forms of angina pectoris Category: Medical Code(s): I25.10 - Atherosclerotic heart disease of [place] coronary artery without angina pectoris (4) Hyperlipidemia Current visit: No Status: Chronic Qualifiers: Hyperlipidemia type: mixed hyperlipidemia Qualified Code(s): E78.2 - Mixed hyperlipidemia Category: Medical Code(s): E78.5 - Hyperlipidemia, unspecified (5) Hypertension Current visit: No Status: Chronic Qualifiers: Hypertension type: essential hypertension Qualified Code(s): I10 - Essential (primary) hypertension Category: Medical Code(s): I10 - Essential (primary) hypertension (6) Diabetes mellitus Current visit: No Status: Chronic Qualifiers: Diabetes mellitus type: type 2 Diabetes mellitus intermediate designer insulin use: with usp use Diabetes mellitus complication status: with neurologic complications Diabetes mellitus complication detail: with polyneuropathy Qualified Code(s): E11.42 - Type 2 diabetes mellitus with diabetic polyneuropathy; Z79.4 - [facility] (current) use of insulin Category: Medical Code(s): E11.9 - Type 2 diabetes mellitus without complications - Assessment and plan all Dx Assessment and Plan for all problems:: 68 F with Hx of CABG, planning for LHC this morning. Further management pending cardiology recs. Appreciate recs. Echo with findings per report, final report pending
--- NOTE | 2019-05-12 10:00 | Progress Note ---
Subjective Date: 05/12/19 Time: 09:56 Principal diagnosis: chest pain/angina Interval history: 68-year-old white female in bed in no acute distress. No further chest pain overnight. Awaiting cardiac catheterization this a.m. Results of echocardiogram pending at this time. Exam Vital signs and Labs for Last 24 Hours: Temp Pulse Resp BP Pulse Ox 98.3 F 62 18 168/56 H 95 05/12/19 08:00 05/12/19 08:00 05/12/19 08:00 05/12/19 08:00 05/12/19 08:00 Laboratory Results - last 24 hr 05/11/19 14:25: WBC 13.3 H, RBC 3.49 L, Hgb 11.2 L, Hct 33.0 L, MCV 94.7, MCH 32.1 H, MCHC 33.9, RDW 13.3, Plt Count 295, MPV 7.0 L, Neut % (Auto) 73.7, Lymph % (Auto) 16.9, [place] % (Auto) 8.6, Eos % (Auto) 0.5, Baso % (Auto) 0.3, Neut # (Auto) 9.8 H, Lymph # (Auto) 2.3, [place] # (Auto) 1.2 H, Eos # (Auto) 0.1, Baso # (Auto) 0.0 05/11/19 14:25: Sodium 138, Potassium 3.8, Chloride 100, Carbon Dioxide 30, Anion Gap 11.8, BUN 41 H, Creatinine 1.82 H, Estimated Creat Clear 39, Estimated GFR 27 L, Est GFR ( Amer) 33 L, Glucose 156 H, Calcium 8.9, Troponin I < 0.02 05/11/19 17:17: Troponin I 0.03 05/11/19 20:11: POC Glucose 182 H 05/12/19 05:24: POC Glucose 262 H 05/12/19 05:50: WBC 8.3 D, RBC 3.17 L, Hgb 9.9 L D, Hct 30.3 L, MCV 95.7, MCH 31.5 H, MCHC 32.9, RDW 13.3, Plt Count 224, MPV 7.4, Neut % (Auto) 70.7, Lymph % (Auto) 18.1, [place] % (Auto) 9.8 H, Eos % (Auto) 1.1, Baso % (Auto) 0.3, Neut # (Auto) 5.9, Lymph # (Auto) 1.5, [place] # (Auto) 0.8, Eos # (Auto) 0.1, Baso # (Auto) 0.0 05/12/19 05:50: Sodium 139, Potassium 4.2, Chloride 102, Carbon Dioxide 30, Anion Gap 11.2, BUN 42 H, Creatinine 1.76 H, Estimated Creat Clear 40, Estimated GFR 29 L, Est GFR ( Amer) 35 L, Glucose 227 H D, Calcium 8.3 L, Total Bilirubin 0.3, Direct Bilirubin 0.1, Indirect Bilirubin 0.2, AST 19, ALT 20, Alkaline Phosphatase 103, Total Protein 5.7 L, Albumin 2.9 L, Triglycerides 175, Cholesterol 150, LDL Cholesterol 75, VLDL Cholesterol 35, HDL Cholesterol 40, Cholesterol/HDL Ratio 3.8 H I & O for Last 24 hours: Intake & Output 05/09/19 05/10/19 05/11/19 05/12/19 11:59 11:59 11:59 11:59 Intake Total 428 / 428 Balance 428 / 428 Weight 189 lb 1 oz - *Routine HEENT Exam Head: Present: normocephalic Eye: Present: EOMI, PERRL ENT: Present: mucous membranes moist - *Routine Respiratory Exam Present: CTA bilaterally. Absent: accessory muscle use, rales, rhonchi, wheezes - *Routine Cardiovascular Exam Present: RRR. Absent: murmur, gallop, rubs - *Routine Abdominal Exam Present: soft. Absent: tenderness, distended, guarding - *Routine Extremities Exam Absent: edema, calf tenderness - *Routine Neurological Exam Present: alert, oriented X3, moving all extremities Progress Note: A&P (1) Unstable angina Status: Acute Current Visit: Yes (2) History of four vessel coronary artery bypass graft Status: Chronic Current Visit: Yes (3) Coronary artery disease Status: Chronic Current Visit: No (4) Hyperlipidemia Status: Chronic Current Visit: No (5) Hypertension Status: Chronic Current Visit: No (6) Diabetes mellitus Status: Chronic Current Visit: No Assessment and Plan for All Diagnoses:: Plan to proceed with left heart catheterization with grafts today with further recommendations to follow pending those results. CKD, stable with creatinine 1.7 and GFR 29.
--- NOTE | 2019-05-12 12:02 | Cardiology Report ---
APPROVED REPORT EXAM: Comprehensive 2D, Doppler, and color-flow Echocardiogram Slip Tender: Janet Barrera CRT Ht: 5 ft 2 in Wt: 190lbs BSA: 1.87 BP: 188/86 mmHg Indications: Diabetes, CAD, Hyperlipidemia Chest Pain, Diabetes, CAD 2D Dimensions LVOT 2.00 cm (M/F) 1.5-2.5 M-Mode Dimensions RVDd 1.60 cm (0.9-2.6)LA Diam 4.10 cm (1.9-4.0) LVDd 5.50 cm (3.5-5.7)Ao Diam 2.10 cm (2.0-3.7) LVDs 3.90 cm (3.5-5.7)AV Cusp 1.80 cm (1.5-2.6) IVSd 1.20 cm (0.6-1.1)PWd 1.10 cm (0.6-1.1) EF (Teich) 55.20% FS 29.10% EDV (Teich) 147.00 mLESV (Teich) 65.90 mL LV Diastology E/A Ratio 1.4MED E' 6.14 (< 7 cm/sec) E'/MED E' Ratio23.00 (>14)LAT E' 7.51 (<10 cm/sec) E/LAT E' Ratio 18.80 (>14) Aortic Valve LVOT Max 154.00 (70-110 cm/s)LVOT VTI 49.10 cm Mitral Valve MV E Max Rusty. 141.00 (40-130 cm/s)MV A Velocity 101.00 (40-130 cm/s) E/A Ratio 1.40 Tricuspid Valve TR P. Brscaeyt386.00 cm/sRAP Estimate 15.00 mmHg RVSP 47.00 mmHg Left Ventricle Left atrium is mildly enlarged, left ventricle is normal size, mild concentric left ventricular hypertrophy, visually estimated ejection fraction 50% with no regional wall motion abnormality, there is abnormal septal motion. Grade 2 diastolic dysfunction seen with tissue Doppler evidence of raise left atrial pressure. Right Ventricle Right atrium and right ventricular mildly enlarged with normal contractility. Aortic Valve Uric valve is thickened and calcified leaflet continue to display good mobility, there is no aortic stenosis or aortic insufficiency. Mitral Valve Mitral valve has mitral annular calcification, leaflets are minimally thickened, there is no mitral stenosis, there is moderate mitral regurgitation. Tricuspid Valve Tricuspid valve is grossly normal, there is mild tricuspid regurgitation, calculated right ventricular systolic pressure is 48 mmHg consistent with moderately elevated right ventricular systolic pressure , inferior vena cava is mildly dilated with mild inspiratory collapse. Pulmonic Valve Pulmonic valve is poorly visualized. Great Vessels Aortic root is normal size. Pericardium No significant pericardial effusion noted. Conclusion 1. Biatrial enlargement, normal left ventricular size, mild concentric left ventricular hypertrophy, visually estimated ejection fraction 50%, there is abnormal septal motion. Grade 2 diastolic dysfunction seen with tissue Doppler evidence of raise left atrial pressure. 2. Mildly enlarged right ventricle with normal contractility. 3. Thickened and calcified aortic valve without aortic stenosis aortic insufficiency. 4. Moderate mitral and mild tricuspid regurgitation, calculated right ventricular systolic pressure is 48 mmHg consistent with moderate pulmonary hypertension. 5. No significant pericardial effusion noted. Electronically signed by : Erik Martinez, 05/12/2019 12:01:59
--- NOTE | 2019-05-12 13:21 | Electrocardiograph Report ---
APPROVED REPORT Exam: Resting ECG HR:84 bpm ECG Measurements Heart Rate 84 AXES CO 232 P 58 QRSd 158 QRS -26 QT 420 T120 QTc 496 <Conclusion> Sinus rhythm with 1st degree AV block Left bundle branch block Abnormal ECG Electronically signed by : Jim Bianchi, 05/12/2019 13:20:59
--- NOTE | 2019-05-12 15:35 | Discharge Summary ---
General - General Admission date:: 05/11/19 Discharge date: 05/12/19 HPI HPI: This is a 68-year-old white female who presented to the emergency department with complaints of chest pain. The patient states that she was getting ready to go to the store when she had sudden onset of chest pain. The patient does report that she had some mild chest pressure and burning yesterday but this really did not last long and was not bothersome. Today when she was getting ready to go to the store she had sudden onset of severe 10 out of 10 chest pain. She states it was a burning pressure sensation. It radiated to her left arm, left side of her neck, and left jaw. She states the gums on the left side of her mouth were also aching. The patient states that she had a headache for which she took Tylenol. The symptoms lasted for about 30 minutes to an hour and nothing was really helping to improve her pain. She then decided to come into the emergency department. She states the nitroglycerin did help with the burning in her chest but she is still having the pressure in her chest. She rates this about a 7 out of 10 in intensity. Nothing worsened her pain and nothing helped to improve her pain while she was at home. The patient does have a history of coronary disease with coronary artery bypass grafting and stenting. She is not been seen in our office for over a year. She denies any associated shortness of breath, diaphoresis or nausea with her symptoms. She states that she was having the same jaw and arm pain when she required coronary artery bypass grafting. She denies any fever, chills, nausea, vomiting, diarrhea, PND or orthopnea. Above note per cardiology Hospital Course Hospital Course: Admitted for chest pain. Monitor on telemetry with no events. Blood pressure remained slightly above goal but not in hypertensive urgency range. Taken for left heart cath on day of discharge with no flow-limiting lesions identified. Chest pain deemed noncardiac. Tolerating regular diet. Stable on room air. Medically stable for discharge home. Plan to follow-up with cardiology and primary care in the outpatient setting. Will initiate PPI for prophylaxis and to see if this addresses some of her chest pain. Objective Vital signs: Temp Pulse Resp BP Pulse Ox 98.5 F 55 L 18 161/52 H 93 L 05/12/19 14:00 05/12/19 14:45 05/12/19 14:45 05/12/19 14:45 05/12/19 14:45 Narrative: see progress note for today for physical exam Results Labs on day of discharge: Labs from last 24 hours 05/12/19 05/12/19 05/12/19 11:24 05:50 05:50 WBC 8.3 D RBC 3.17 L Hgb 9.9 L D Hct 30.3 L MCV 95.7 MCH 31.5 H MCHC 32.9 RDW 13.3 Plt Count 224 MPV 7.4 Neut % (Auto) 70.7 Lymph % (Auto) 18.1 [place] % (Auto) 9.8 H Eos % (Auto) 1.1 Baso % (Auto) 0.3 Neut # (Auto) 5.9 Lymph # (Auto) 1.5 [place] # (Auto) 0.8 Eos # (Auto) 0.1 Baso # (Auto) 0.0 Sodium 139 Potassium 4.2 Chloride 102 Carbon Dioxide 30 Anion Gap 11.2 BUN 42 H Creatinine 1.76 H Estimated Creat Clear 40 Estimated GFR 29 L Est GFR ( Amer) 35 L Glucose 227 H D POC Glucose 101 Calcium 8.3 L Total Bilirubin 0.3 Direct Bilirubin 0.1 Indirect Bilirubin 0.2 AST 19 ALT 20 Alkaline Phosphatase 103 Troponin I Total Protein 5.7 L Albumin 2.9 L Triglycerides 175 Cholesterol 150 LDL Cholesterol 75 VLDL Cholesterol 35 HDL Cholesterol 40 Cholesterol/HDL Ratio 3.8 H 05/12/19 05/11/19 05/11/19 05:24 20:11 17:17 WBC RBC Hgb Hct MCV MCH MCHC RDW Plt Count MPV Neut % (Auto) Lymph % (Auto) [place] % (Auto) Eos % (Auto) Baso % (Auto) Neut # (Auto) Lymph # (Auto) [place] # (Auto) Eos # (Auto) Baso # (Auto) Sodium Potassium Chloride Carbon Dioxide Anion Gap BUN Creatinine Estimated Creat Clear Estimated GFR Est GFR ( Amer) Glucose POC Glucose 262 H 182 H Calcium Total Bilirubin Direct Bilirubin Indirect Bilirubin AST ALT Alkaline Phosphatase Troponin I 0.03 Total Protein Albumin Triglycerides Cholesterol LDL Cholesterol VLDL Cholesterol HDL Cholesterol Cholesterol/HDL Ratio DS: Diagnosis - Discharge Diagnosis (1) Unstable angina Status: Acute Problem details: non cardiac (2) History of four vessel coronary artery bypass graft Status: Chronic (3) Coronary artery disease Status: Chronic (4) Hyperlipidemia Status: Chronic (5) Hypertension Status: Chronic (6) Diabetes mellitus Status: Chronic Discharge Plan - Patient Discharge Instructions Patient Instructions: Cardiac Troponin, DI for Angina, DI for Cardiac Catheterization - Follow up Plan Follow up with: Royer Parrish MD [Primary Care Provider] - Emiliano Pineda MD [Staff Physician] - Disposition: Home, Self-Shelter Medications: Home Medications Medication Instructions Recorded Confirmed Type acetaminophen 325 mg tablet 500 mg PO Q6H PRN 09/17/17 05/11/19 History aspirin 81 mg tablet,delayed 81 mg PO QDAY 09/17/17 05/11/19 History release clopidogrel 75 mg tablet 75 mg PO DAILY 09/17/17 05/11/19 History ferrous sulfate ER 142 mg (45 mg 142 mg PO QDAY tab 09/17/17 05/11/19 History iron) tablet,extended release furosemide 40 mg tablet 40 mg PO DAILY 09/17/17 05/11/19 History sitagliptin 50 mg tablet 50 mg PO DAILY 09/17/17 05/11/19 History famotidine 20 mg tablet 20 mg PO BID tab 09/18/17 05/11/19 History gabapentin 100 mg capsule 100 mg PO TID cap 09/18/17 05/11/19 History insulin human U-100 NPH-regulr 20 unit SUB-Q BID ml 09/18/17 05/11/19 History 70-30 mix 100 unit/mL subcutaneous susp tramadol 50 mg tablet 100 mg PO Q6HP PRN tab 09/18/17 05/11/19 History Pravastatin Sodium [Pravachol] 80 mg PO QHS 05/28/18 05/11/19 History citalopram 20 mg tablet 20 mg PO DAILY 90 Days tab 09/16/18 05/11/19 History carvedilol 6.25 mg tablet 6.25 mg PO BID tab 01/31/19 05/12/19 History losartan 50 mg tablet 50 mg PO DAILY tab 01/31/19 05/11/19 History Amlodipine Besylate [Norvasc 5mg 5 mg PO DAILY 05/06/19 05/12/19 History tablet] diclofenac 1 % topical gel 4 g TOPICAL QID PRN #30 g 05/10/19 05/11/19 Rx Cholecalciferol (Vitamin D3) 1,000 unit PO DAILY 05/12/19 05/12/19 History [Vitamin D3 1,000 Unit Tab] Omeprazole [Omeprazole 20mg 20 mg PO DAILY 30 Days #30 cap 05/12/19 Rx Capsule] Prescriptions/Medication Reconciliation: Continued clopidogrel 75 mg tablet 75 mg PO DAILY furosemide 40 mg tablet 40 mg PO DAILY sitagliptin 50 mg tablet 50 mg PO DAILY ferrous sulfate ER 142 mg (45 mg iron) tablet,extended release 142 mg PO QDAY tab acetaminophen 325 mg tablet 500 mg PO Q6H PRN PRN Reason: pain famotidine 20 mg tablet 20 mg PO BID tab insulin human U-100 NPH-regulr 70-30 mix 100 unit/mL subcutaneous susp 20 unit SUB-Q BID ml losartan 50 mg tablet 50 mg PO DAILY tab diclofenac 1 % topical gel 4 g TOPICAL QID PRN #30 g PRN Reason: pain aspirin 81 mg tablet,delayed release 81 mg PO QDAY gabapentin 100 mg capsule 100 mg PO TID cap tramadol 50 mg tablet 100 mg PO Q6HP PRN tab PRN Reason: PAIN citalopram 20 mg tablet 20 mg PO DAILY 90 Days tab carvedilol 6.25 mg tablet 6.25 mg PO BID tab Pravastatin Sodium [Pravachol] 80 mg PO QHS Cholecalciferol (Vitamin D3) [Vitamin D3 1,000 Unit Tab] 1,000 unit PO DAILY Amlodipine Besylate [Norvasc 5mg tablet] 5 mg PO DAILY - Problem Reconciliation Problems Reviewed?: Yes
== END 2019-05-12 18:35 | disposition home or self-care (01) ==
LOC: ER 14:12 → 2ND 14:12
PROVIDERS: ADMIT Internal Medicine Adolescent Medicine; ATTEND Internal Medicine Adolescent Medicine
CPT/HCPCS: 36252; 36415; 71020; 71046; 80048; 80061; 80076; 82962; 84484; 85025; 93005; 93306; 93459; 99152; 99284; C1725; C1769; C1894; G0378; J1644; Q9967

== ENCOUNTER 2019-06-10 11:00 | Outpatient (RCR) | payer MEDICARE, SELFPAY ==
--- NOTE | 2019-05-25 15:17 | HMH.PTOPWND ---
Rehab Outpt Wound Evaluation Rehab OP Wound Evaluation Start: 05/25/19 14:53 Freq: Status: Active Protocol: Document 05/25/19 15:12 KAYCE (Rec: 05/25/19 15:17 PHORNE [id number]) Electronically Signed By Karson Salgadoe, PT 05/25/19 15:12 Subjective/History History History Pt is a 68 yowf, well known to this clinic, with chronic B LE edema for many years due to CVI and cardiac issues. She reports she feels her swelling may be a little worse than usual after suffering a broken bone in her foot ~ 6 mos ago. She also reports she feels her compression wraps are not working as well as they should . She has PMH of HTN, CAD with CABG x 4, DM-II. Subjective Subjective Pt reports no c/o pain currently, just edema. Lymphedema Eval Classification of Lymphedema Secondary Lymphedema Yes Stemmer's sign Stemmer's Sign yes Stage of Lymphedema Lymphedema stages Stage I (Pitting edema, reduces w/ elevation, no fibrosis) Skin Changes Dry Skin Yes Redness Yes Pain Scale Pain Scale (0-10) 0 Affected Extremities Areas Affected by Lymphedema/Edema Right Lower Extremity,Left Lower Extremity Manual Lymphatic Drainage Treatment Area MLD Treatment Area Right Lower Extremity,Left Lower Extremity Wound Problems/Impairments Impairments Problems/Impairmments Impaired Recreational Activities,Increased Edema, Lymphedema Present,Impaired Self Care/Self Management Prognosis Rehab Potential Good Clinical Impression Consistent with Diagnosis Yes Short Term Goals Number of Weeks 4 Decrease Edema Yes Patient to Understand Lymphedema Yes Treatment and Exercises Decrease Girth Measurments by (cm) Yes: by 5 cm Longterm Goals Number of Weeks 8 Decrease Edema Yes Patient to be Ind w/ HEP Yes Patient to be Ind w/ [place] Yes Compression Garments Patient to Adhere Lymphedema Precautions Yes Decrease Girth Measurments by (cm) Yes: by 15 cm Outpatient Therapy Plan of Care Treatment Plan May Include Therapeutic Exercise Including Home Yes Exercise Program
== END 2019-06-10 11:05 | disposition home or self-care (01) ==
LOC: PT 11:00
PROVIDERS: Visit Provider Podiatrist
DX: R60.0 Localized edema (principal)
CPT/HCPCS: 97162; 97760

== ENCOUNTER → 2019-06-14 17:29 | Outpatient (CLI) | payer MEDICARE, SELFPAY ==
--- NOTE | 2019-06-14 17:32 | MM_ITS ---
PROCEDURE: MM DIG SCREENING MAMM BI W/CAD CLINICAL INDICATION: ROUTINE SCREENING There is no personal or family history of breast cancer. There has been a previous biopsy right breast for benign disease. COMPARISON: [facility] DIG MAMM-SCREEN MYNOR from 02/14/2016 [facility] DIG MAMM-SCREEN MYNOR W/CAD from 03/10/2017 [facility] MM Dig screening mamm BI w/CAD from 03/22/2018 TECHNIQUE: Standard CC and MLO images were obtained. R2 CAD reviewed. FINDINGS: Moderate diffuse heterogenic fibroglandular densities are seen in both breasts. There is moderate arterial calcification in each breast. There is a biopsy clip 12 o'clock position right breast there are scattered benign-appearing micro and macrocalcifications in each breast. There is no suspicious lesion and no suspicious microcalcifications. IMPRESSION: Moderate diffuse breast density with no suspicious lesions seen BI-RAD Category: 2 Benign Finding(s) FOLLOW-UP: 1YR 1 Year Follow-up (A letter has been sent to the patient regarding results of the study.) Dictated by: Dr. Geoffrey Zambrano MD 06/16/2019 15:[address] Geoffrey Zambrano MD in [place] 06/16/2019 15:04
== END ==
PROVIDERS: PCP Internal Medicine Adolescent Medicine; Visit Provider Internal Medicine Adolescent Medicine
DX: Z12.31 Encounter for screening mammogram for malignant neoplasm of breast (principal)
CPT/HCPCS: 77067

== ENCOUNTER → 2019-06-21 07:58 | Outpatient (CLI) | payer MEDICARE, SELFPAY ==
[2019-06-21 09:11] LABS: Basophils % 0.4 % (0.1-2.0); Eosinophils # 0.4 K/mm3 (0.0-0.4); Eosinophils % 4.9 % (0.1-12.0); Hematocrit 30.8 % (37.0-47.0); Hemoglobin 10.3 g/dL (12.2-16.2); Lymphocytes # 1.6 K/mm3 (0.7-4.5); Lymphocytes % 19.4 % (10-50); Mean Corpuscular HGB Conc 33.4 g/dL (31.8-35.4); Mean Corpuscular Hemoglobin 32.1 pg (27.0-31.2); Mean Corpuscular Volume 96.2 fl (81-99); Monocytes # 0.8 K/mm3 (0.1-1.0); Monocytes % 9.4 % (1.7-9.3); Neutrophils # 5.3 K/mm3 (1.8-7.8); Neutrophils % 65.9 % (37.0-80.0); Platelet Count 251 K/mm3 (142-424); Red Cell Distribution Width 13.2 % (11.5-17.5); White Blood Count 8.1 K/mm3 (4.8-10.8)
[2019-06-21 10:28] LABS: Alanine Aminotransferase 18 U/L (12-78); Albumin Level 3.4 gm/dL (3.4-5.0); Albumin/Globulin Ratio 1.3 (1.1-1.8); Alkaline Phosphatase 110 U/L (46-116); Anion Gap 21.9 mEq/L (5-15); Aspartate Amino Transferase 14 U/L (15-37); Bilirubin,Total 0.4 mg/dL (0.2-1.0); Blood Urea Nitrogen 50 mg/dL (7-18); Carbon Dioxide 21 mmol/L (21.0-32.0); Chloride 102 mmol/L (98-107); Estimated Glomerular Filt Rate 25 ml/min (>60); GFR (African American) 30 ML/MIN (>60); Globulin 2.6 gm/dl (1.3-3.2); Glucose 57 mg/dL (74-106); Potassium 3.9 mmoL/L (3.5-5.1); Sodium 141 mmol/L (136-145)
== END ==
PROVIDERS: Visit Provider Internal Medicine Adolescent Medicine
DX: I50.30 Unspecified diastolic (congestive) heart failure (principal); N18.3 Chronic kidney disease, stage 3 (moderate)
CPT/HCPCS: 36415; 80053; 85025

== ENCOUNTER 2019-07-01 16:29 | Outpatient (RCR) | payer MEDICARE, SELFPAY | END 2019-07-01 16:35 | disposition home or self-care (01) | LOC: PT 16:29 | PROVIDERS: Visit Provider Internal Medicine | DX: I25.118 Atherosclerotic heart disease of native coronary artery with other forms of angina pectoris | CPT/HCPCS: 93798 ==

== ENCOUNTER → 2019-08-13 08:53 | Outpatient (CLI) | payer MEDICARE, SELFPAY ==
[2019-08-13 09:45] LABS: Basophils % 0.4 % (0.1-2.0); Eosinophils # 0.5 K/mm3 (0.0-0.4); Eosinophils % 6.9 % (0.1-12.0); Lymphocytes # 1.3 K/mm3 (0.7-4.5); Lymphocytes % 17.4 % (10-50); Mean Corpuscular HGB Conc 33.2 g/dL (31.8-35.4); Mean Corpuscular Hemoglobin 31.8 pg (27.0-31.2); Mean Corpuscular Volume 95.9 fl (81-99); Mean Platelet Volume 7.6 fl (7.4-10.4); Monocytes # 0.7 K/mm3 (0.1-1.0); Monocytes % 9.1 % (1.7-9.3); Neutrophils # 4.9 K/mm3 (1.8-7.8); Neutrophils % 66.2 % (37.0-80.0); Platelet Count 253 K/mm3 (142-424); Red Blood Count 3.06 M/mm3 (4.20-5.40); Red Cell Distribution Width 13.2 % (11.5-17.5); White Blood Count 7.3 K/mm3 (4.8-10.8)
[2019-08-13 09:54] LABS: Hemoglobin 9.8 g/dL (12.2-16.2)
[2019-08-13 09:55] LABS: Hematocrit 29.4 % (37.0-47.0)
[2019-08-13 13:52] LABS: Albumin Level 2.9 gm/dL (3.4-5.0); Blood Urea Nitrogen 39 mg/dL (7-18); Calcium 8.3 mg/dL (8.5-10.1); Carbon Dioxide 30 mmol/L (21.0-32.0); Chloride 102 mmol/L (98-107); Creatinine,Serum 2.05 mg/dL (0.55-1.02); Estimated Glomerular Filt Rate 24 ml/min (>60); GFR (African American) 29 ML/MIN (>60); Glucose 53 mg/dL (74-106); Phosphorous 5.1 mg/dL (2.4-4.9); Sodium 143 mmol/L (136-145)
[2019-08-15 11:24] LABS: Vitamin D 25 Hydroxy 30.2 ng/mL (30.0-100.0)
== END ==
PROVIDERS: Visit Provider Internal Medicine Nephrology
DX: N18.4 Chronic kidney disease, stage 4 (severe) (principal)
CPT/HCPCS: 36415; 80069; 82652; 85025

== ENCOUNTER → 2019-08-17 09:58 | Outpatient (POV) | payer MEDICARE, SELFPAY | PROVIDERS: Visit Provider Internal Medicine Nephrology | DX: Z00.00 Encounter for general adult medical examination without abnormal findings (principal) ==

== ENCOUNTER → 2019-09-01 08:23 | Outpatient (CLI) | payer MEDICARE, SELFPAY ==
[2019-09-01 09:10] LABS: Basophils % 0.4 % (0.1-2.0); Eosinophils # 0.6 K/mm3 (0.0-0.4); Eosinophils % 7.9 % (0.1-12.0); Hemoglobin 9.9 g/dL (12.2-16.2); Lymphocytes # 1.7 K/mm3 (0.7-4.5); Lymphocytes % 20.7 % (10-50); Mean Corpuscular HGB Conc 33.2 g/dL (31.8-35.4); Mean Corpuscular Hemoglobin 31.8 pg (27.0-31.2); Mean Corpuscular Volume 95.8 fl (81-99); Mean Platelet Volume 7.7 fl (7.4-10.4); Monocytes # 0.7 K/mm3 (0.1-1.0); Monocytes % 8.3 % (1.7-9.3); Neutrophils # 5.1 K/mm3 (1.8-7.8); Neutrophils % 62.8 % (37.0-80.0); Platelet Count 217 K/mm3 (142-424); Red Blood Count 3.13 M/mm3 (4.20-5.40); Red Cell Distribution Width 13.1 % (11.5-17.5); White Blood Count 8.1 K/mm3 (4.8-10.8)
[2019-09-01 09:37] LABS: Alanine Aminotransferase 20 U/L (12-78); Albumin Level 3.2 gm/dL (3.4-5.0); Albumin/Globulin Ratio 1.3 (1.1-1.8); Alkaline Phosphatase 117 U/L (46-116); Anion Gap 14.1 mEq/L (5-15); Aspartate Amino Transferase 19 U/L (15-37); Bilirubin,Total 0.3 mg/dL (0.2-1.0); Blood Urea Nitrogen 47 mg/dL (7-18); Calcium 8.2 mg/dL (8.5-10.1); Carbon Dioxide 27 mmol/L (21.0-32.0); Chloride 104 mmol/L (98-107); Creatinine,Serum 2.08 mg/dL (0.55-1.02); Estimated Glomerular Filt Rate 23 ml/min (>60); GFR (African American) 28 ML/MIN (>60); Globulin 2.5 gm/dl (1.3-3.2); Glucose 74 mg/dL (74-106); Potassium 4.1 mmoL/L (3.5-5.1); Sodium 141 mmol/L (136-145); Total Protein,Serum 5.7 gm/dL (6.4-8.2)
[2019-09-01 10:41] LABS: Hemoglobin A1C 5.8 % (0.0-7.0)
== END ==
PROVIDERS: Visit Provider Internal Medicine Adolescent Medicine
DX: N18.4 Chronic kidney disease, stage 4 (severe) (principal); E11.9 Type 2 diabetes mellitus without complications; Z79.4 Long term (current) use of insulin
CPT/HCPCS: 36415; 80053; 83036; 85025

== ENCOUNTER → 2019-11-25 15:39 | Outpatient (CLI) | payer MEDICARE, SELFPAY ==
--- NOTE | 2019-11-25 15:46 | XR_ITS ---
PROCEDURE: XR FOOT RT MIN 3V CLINICAL INDICATION: RT FOOT PAIN COMPARISON: [id number] XR foot RT min 3V from 08/04/2018 [id number] XR foot wt bearing RT 3V from 10/25/2018 [id number] XR foot wt bearing RT 3V from 11/22/2018 FINDINGS: No fracture or dislocation. No lytic or blastic change. There is normal mineralization. The the a small defect is present at the tuft of the distal phalanx. This however had a similar appearance on the previous exam. There is mild diffuse vascular calcification. No acute fracture or dislocation. No lytic or blastic change. IMPRESSION: Diffuse vascular calcification. No acute finding Dictated by: Federico Justice MD 11/25/2019 16:14 Electronically signed by Federico Justice MD in [place] 11/25/2019 16:14
== END ==
PROVIDERS: PCP Internal Medicine Adolescent Medicine; Visit Provider Internal Medicine Adolescent Medicine
DX: L97.512 Non-pressure chronic ulcer of other part of right foot with fat layer exposed (principal)
CPT/HCPCS: 73630

== ENCOUNTER → 2019-12-05 15:03 | Outpatient (CLI) | payer MEDICARE, SELFPAY ==
--- NOTE | 2019-12-05 15:07 | MR_ITS ---
PROCEDURE: MR FOOT RT WO CON CLINICAL INDICATION: CELLULITIS OF GREAT TOE,RIGHT Pain and right great toe redness and swelling with wound COMPARISON: No exams were available for comparison TECHNIQUE: Routine multiplanar multi echo sequences are performed without gadolinium enhancement. FINDINGS: There is mild diffuse subcutaneous edema. Abnormal signal intensity is present involving the distal phalanx of the great toe with diffuse increased T2 signal involving the distal phalanx of the great toe with overlying soft tissue swelling at the distal aspect of the great toe. No obvious abscess or sinus tract.. IMPRESSION: 1. Abnormal increased T2 signal involving the distal phalanx of the great toe suspicious for osteomyelitis with associated surrounding cellulitis. 2. Diffuse subcutaneous edema of the foot worse along the dorsal aspect of the foot. No obvious abscess or sinus tract demonstrated Dictated by: Federico Justice MD 12/06/2019 11:30 Electronically signed by Federico Justice MD in [place] 12/06/2019 11:30
== END ==
PROVIDERS: PCP Internal Medicine Adolescent Medicine; Visit Provider Internal Medicine Adolescent Medicine
DX: L03.031 Cellulitis of right toe (principal)
CPT/HCPCS: 73718

== ENCOUNTER → 2019-12-12 10:14 | Outpatient (CLI) | payer MEDICARE, SELFPAY ==
--- NOTE | 2019-12-12 10:15 | US_ITS ---
APPROVED REPORT Exam Type: Lower Extremity Segmental Pressures Cylinder Checker: Sirena Dawn RVT Indications Claudication: Bilaterally Rest Pain: Bilaterally RT GREAT TOE ULCER,OSTEOMYLELITIS Risk Factors Hypertension CAD Hyperlipidemia Diabetes Pressures/Indices Right Indices Left Indices Brachial 180.00 mmHg Brachial 185.00 mmHg Low Thigh 255.00 mmHg Low Thigh 255.00 mmHg Calf 255.00 mmHg Calf 255.00 mmHg Ankle(PT) 205.00 mmHg 1.11 Ankle(PT) 221.00 mmHg 1.19 Ankle(DP) 255.00 mmHg Ankle(DP) 255.00 mmHg Digit 83.00 mmHg 0.45 Digit 135.00 mmHg 0.73 Findings RT MANAN:1.1 LT MANAN:1.19 RT TBI:0.45 LT TBI:0.73 DAMPENED WAVEFORMS BILATERAL ANKLES DECREASED PULSES BILATERAL Conclusion RT MANAN:1.1 LT MANAN:1.19 RT TBI:0.45 LT TBI:0.73 DAMPENED WAVEFORMS BILATERAL ANKLES DECREASED PULSES BILATERAL Medial calcinosis (rigid vessels) is suggested due to noncompressible thigh vessels, bilaterally. Electronically signed by : Federico Justice MD 12/12/2019 17:28:22
--- NOTE | 2019-12-12 10:43 | ECG_ITS ---
APPROVED REPORT Exam: Resting ECG HR:54 bpm ECG Measurements Heart Rate 54 AXES AK 186 P 66 QRSd 158 QRS 72 QT 486 T 84 QTc 460 <Conclusion> Sinus bradycardia Left bundle branch block Abnormal ECG Electronically signed by : Jim Bianchi, 12/12/2019 13:56:05
--- NOTE | 2019-12-12 11:04 | XR_ITS ---
PROCEDURE: XR CHEST 2V CLINICAL HISTORY: HTN, DMII Heart disease COMPARISON: CXR CHEST(2 VIEWS-NOT PORTABLE) from 11/13/2016 CXR1 CHEST-PORTABLE from 05/30/2017 XR CHEST 2V from 05/11/2019 FINDINGS: Prior CABG. Normal heart size. There are atelectatic changes in the left midlung and there is a small right pleural effusion. No acute bony abnormalities. IMPRESSION: Small right pleural effusion. Mild atelectatic changes left Dictated by: Federico Justice MD 12/12/2019 14:45 Electronically signed by Federico Justice MD in [place] 12/12/2019 14:45
[2019-12-12 11:09] LABS: Basophils % 0.3 % (0.1-2.0); Eosinophils # 0.3 K/mm3 (0.0-0.4); Eosinophils % 3.9 % (0.1-12.0); Hematocrit 30.6 % (37.0-47.0); Hemoglobin 10.2 g/dL (12.2-16.2); Lymphocytes # 1.6 K/mm3 (0.7-4.5); Lymphocytes % 19.2 % (10-50); Mean Corpuscular HGB Conc 33.4 g/dL (31.8-35.4); Mean Corpuscular Hemoglobin 31.3 pg (27.0-31.2); Mean Corpuscular Volume 93.7 fl (81-99); Monocytes % 11.9 % (1.7-9.3); Neutrophils # 5.4 K/mm3 (1.8-7.8); Neutrophils % 64.7 % (37.0-80.0); Platelet Count 211 K/mm3 (142-424); Red Blood Count 3.27 M/mm3 (4.20-5.40); Red Cell Distribution Width 12.9 % (11.5-17.5); White Blood Count 8.3 K/mm3 (4.8-10.8)
[2019-12-12 13:03] LABS: Chloride 100 mmol/L (98-107); Sodium 137 mmol/L (136-145)
[2019-12-12 13:06] LABS: Alanine Aminotransferase 23 U/L (12-78); Albumin Level 3.6 g/dl (3.5-5.0); Albumin/Globulin Ratio 1.5 (1.1-1.8); Alkaline Phosphatase 113 U/L (38-126); Aspartate Amino Transferase 34 U/L (14-36); Bilirubin,Total 0.4 mg/dl (0.2-1.3); Blood Urea Nitrogen 50 mg/dl (7-17); Calcium 9.2 mg/dl (8.4-10.2); Carbon Dioxide 28 mmol/L (22.0-30.0); Estimated Glomerular Filt Rate 28 ml/min (>60); GFR (African American) 34 ML/MIN (>60); Globulin 2.4 g/dL (1.3-3.2); Glucose 77 mg/dl (74-100)
[2019-12-12 13:12] LABS: C-Reactive Protein 11.9 mg/L (0-4)
[2019-12-12 14:09] LABS: Erythrocyte Sedimentation Rate 126 mm/hr (0-30)
[2019-12-12 14:24] LABS: Hemoglobin A1C 5.5 % (4.0-6.0)
== END ==
PROVIDERS: PCP Internal Medicine Adolescent Medicine; Visit Provider Podiatrist
DX: I99.8 Other disorder of circulatory system (principal); R09.89 Other specified symptoms and signs involving the circulatory and respiratory systems; L97.514 Non-pressure chronic ulcer of other part of right foot with necrosis of bone; M86.9 Osteomyelitis, unspecified; E11.9 Type 2 diabetes mellitus without complications; Z79.4 Long term (current) use of insulin
CPT/HCPCS: 36415; 71046; 80053; 83036; 85025; 85651; 86140; 93005; 93923

== ENCOUNTER 2019-12-23 08:26 | Day surgery (SDC) | payer MEDICARE, SELFPAY ==
[2019-12-23] VITALS (18 sets, daily range): BP systolic 137–201; BP diastolic 58–84; PULSE 55–86; RESP 14–20; TEMP 36.6; O2SAT 91–99; BMI 35.1
--- NOTE | 2019-12-23 09:00 | IR_ITS ---
APPROVED REPORT Patient Location: Outpatient Rehab Therapy Manager: IGNACIO Sandhu RT (R) PROCEDURES Catheter placement in the right common iliac artery Right common iliac artery antegrade angiogram with unilateral runoff to the right foot INDICATION Preoperative evaluation for impending great toe amputation, Abnormal MANAN, Peripheral artery disease Informed consent was obtained prior to the procedure. COMPLICATIONS none Estimated Blood Loss: less than 10 mls TECHNIQUE 1% lidocaine used to anesthetize the left groin the left femoral artery was accessed via the Salinger technique and a 5 Norwegian sheath was placed in the left femoral artery. A rim catheter was placed in the right common iliac artery and unilateral angiography was performed with runoff to the right foot. At the end of the procedure the apparatus was removed the patient was transferred to the postop holding area in stable condition for sheath removal ANGIOGRAPHIC RESULTS Right common iliac artery right external and right internal iliac arteries are normal. The right common femoral artery is normal The right profunda femoris artery is normal The right superficial femoral artery has mild hxl-bnal-sjdsimhu atheromatous plaque Right popliteal artery has a focal mid vessel 50% [id number] stenosis with excellent flow distal to the lesion The right anterior tibialis artery is a large patent artery which supplies the dorsalis pedis artery and then there is abrupt loss of vascularity from the midfoot to the remaining phalanges The posterior tibialis artery is proximally occluded The peroneal artery is patent to the distal aspect of the calf. IMPRESSION Large widely patent right anterior tibialis artery which supplies the proximal portion of the right foot but does not have vascularity in the distal portion of the foot providing the digits. This is all consistent with small vessel disease not amenable to surgical or percutaneous revascularization PLAN 1. Proceed with toe amputation if clinically warranted 2. Consider TMA based on poor digit vascularity however this requires clinical expertise from treating surgeon 3. Risk factor modification 4. Recommend Xarelto 2.5 twice daily combined with aspirin 81 mg daily Electronically signed by : Emiliano Pineda, 12/23/2019 10:58:32
[2019-12-23 09:29] LABS: Basophils # 0.1 K/mm3 (0-0.2); Basophils % 1.3 % (0.1-2.0); Eosinophils # 0.5 K/mm3 (0.0-0.4); Eosinophils % 7.2 % (0.1-12.0); Hematocrit 30.4 % (37.0-47.0); Hemoglobin 9.9 g/dL (12.2-16.2); Lymphocytes # 1.7 K/mm3 (0.7-4.5); Lymphocytes % 22.2 % (10-50); Mean Corpuscular HGB Conc 32.6 g/dL (31.8-35.4); Mean Corpuscular Hemoglobin 31.4 pg (27.0-31.2); Mean Corpuscular Volume 96.4 fl (81-99); Mean Platelet Volume 7.6 fl (7.4-10.4); Monocytes # 0.8 K/mm3 (0.1-1.0); Monocytes % 10.8 % (1.7-9.3); Neutrophils # 4.4 K/mm3 (1.8-7.8); Neutrophils % 58.5 % (37.0-80.0); Platelet Count 286 K/mm3 (142-424); Red Blood Count 3.16 M/mm3 (4.20-5.40); Red Cell Distribution Width 13.9 % (11.5-17.5); White Blood Count 7.5 K/mm3 (4.8-10.8)
[2019-12-23 09:36] LABS: Chloride 100 mmol/L (98-107); Potassium 3.7 mmoL/L (3.5-5.1); Sodium 137 mmol/L (136-145)
[2019-12-23 09:39] LABS: Anion Gap 11.7 mEq/L (5-15); Blood Urea Nitrogen 44 mg/dl (7-17); Carbon Dioxide 29 mmol/L (22.0-30.0); Creatinine Clearance Estimated 37 mL/min (50-200); Estimated Glomerular Filt Rate 26 ml/min (>60); GFR (African American) 32 ML/MIN (>60)
[2019-12-23 09:40] LABS: Calcium 9.2 mg/dl (8.4-10.2)
[2019-12-23 09:43] LABS: Glucose 48 mg/dl (74-100)
[2019-12-23 12:34] LABS: POC Glucose,Bedside 73 (70-110)
== END 2019-12-23 14:33 | disposition home or self-care (01) ==
LOC: CATHLAB 08:28
PROVIDERS: PCP Internal Medicine Adolescent Medicine; Visit Provider Internal Medicine
DX: E11.69 Type 2 diabetes mellitus with other specified complication (principal); M86.171 Other acute osteomyelitis, right ankle and foot; E11.621 Type 2 diabetes mellitus with foot ulcer; I11.0 Hypertensive heart disease with heart failure; I25.118 Atherosclerotic heart disease of native coronary artery with other forms of angina pectoris; I50.9 Heart failure, unspecified; Z95.1 Presence of aortocoronary bypass graft; I77.1 Stricture of artery; L03.115 Cellulitis of right lower limb; E11.40 Type 2 diabetes mellitus with diabetic neuropathy, unspecified; L97.514 Non-pressure chronic ulcer of other part of right foot with necrosis of bone; Z79.4 Long term (current) use of insulin
CPT/HCPCS: 36140; 75710; 80048; 82962; 85025; 99152; C1725; C1769; C1894; J1644; Q9966

== ENCOUNTER → 2020-01-05 17:01 | Outpatient (CLI) | payer MEDICARE, SELFPAY ==
[2020-01-05 17:17] LABS: Basophils # 0.1 K/mm3 (0-0.2); Basophils % 0.6 % (0.1-2.0); Eosinophils # 0.4 K/mm3 (0.0-0.4); Eosinophils % 4.9 % (0.1-12.0); Lymphocytes # 1.3 K/mm3 (0.7-4.5); Lymphocytes % 16.6 % (10-50); Mean Corpuscular HGB Conc 31.4 g/dL (31.8-35.4); Mean Corpuscular Hemoglobin 31.7 pg (27.0-31.2); Mean Corpuscular Volume 100.8 fl (81-99); Mean Platelet Volume 8.9 fl (7.4-10.4); Monocytes # 0.6 K/mm3 (0.1-1.0); Neutrophils # 5.6 K/mm3 (1.8-7.8); Platelet Count 256 K/mm3 (142-424); Red Blood Count 3.17 M/mm3 (4.20-5.40); Red Cell Distribution Width 13.8 % (11.5-17.5)
[2020-01-05 18:15] LABS: Erythrocyte Sedimentation Rate > 140 mm/hr (0-30)
[2020-01-05 18:45] LABS: Chloride 100 mmol/L (98-107)
[2020-01-05 18:46] LABS: Potassium 3.9 mmoL/L (3.5-5.1); Sodium 138 mmol/L (136-145)
[2020-01-05 18:48] LABS: Alanine Aminotransferase 21 U/L (12-78); Alkaline Phosphatase 116 U/L (38-126); Anion Gap 12.9 mEq/L (5-15); Aspartate Amino Transferase 30 U/L (14-36); Bilirubin,Total 0.5 mg/dl (0.2-1.3); Blood Urea Nitrogen 34 mg/dl (7-17); Carbon Dioxide 29 mmol/L (22.0-30.0); Estimated Glomerular Filt Rate 30 ml/min (>60); GFR (African American) 36 ML/MIN (>60)
[2020-01-05 18:49] LABS: Albumin Level 4.1 g/dl (3.5-5.0); Albumin/Globulin Ratio 1.8 (1.1-1.8); Globulin 2.3 g/dL (1.3-3.2); Glucose 82 mg/dl (74-100); Total Protein,Serum 6.4 g/dl (6.3-8.2)
== END ==
PROVIDERS: Visit Provider Nurse Practitioner
DX: E11.621 Type 2 diabetes mellitus with foot ulcer (principal); L97.519 Non-pressure chronic ulcer of other part of right foot with unspecified severity; Z79.4 Long term (current) use of insulin
CPT/HCPCS: 36415; 80053; 85025; 85651; 86140

== ENCOUNTER → 2020-01-09 10:33 | Outpatient (CLI) | payer MEDICARE, SELFPAY ==
--- NOTE | 2020-01-09 11:05 | XR_ITS ---
PROCEDURE: XR CHEST 2V CLINICAL HISTORY: CUSTODIAL DRUG THERAPY Heart disease COMPARISON: CXR1 CHEST-PORTABLE from 05/30/2017 XR CHEST 2V from 05/11/2019 XR CHEST 2V from 12/12/2019 FINDINGS: Has been a prior CABG. The heart size is normal. The lungs are clear without infiltrates, suspicious nodules, or pleural effusions. There are old right-sided rib fractures and there is thoracic curvature convex right with degenerative noted in the thoracic and lumbar spine. IMPRESSION: No change no acute finding Dictated by: Federico Justice MD 01/09/2020 11:21 Electronically signed by Federico Justice MD in [place] 01/09/2020 11:21
[2020-01-09 11:07] LABS: Hemoglobin A1C 5.3 % (4.0-6.0)
[2020-01-09 11:14] LABS: Basophils % 0.4 % (0.1-2.0); Eosinophils # 0.5 K/mm3 (0.0-0.4); Eosinophils % 6.6 % (0.1-12.0); Hematocrit 28.9 % (37.0-47.0); Hemoglobin 9.1 g/dL (12.2-16.2); Lymphocytes # 1.3 K/mm3 (0.7-4.5); Lymphocytes % 18.2 % (10-50); Mean Corpuscular HGB Conc 31.7 g/dL (31.8-35.4); Mean Corpuscular Hemoglobin 30.5 pg (27.0-31.2); Mean Corpuscular Volume 96.4 fl (81-99); Mean Platelet Volume 8.1 fl (7.4-10.4); Monocytes # 0.6 K/mm3 (0.1-1.0); Monocytes % 8.6 % (1.7-9.3); Neutrophils # 4.6 K/mm3 (1.8-7.8); Neutrophils % 66.2 % (37.0-80.0); Platelet Count 269 K/mm3 (142-424); Red Cell Distribution Width 14.2 % (11.5-17.5); White Blood Count 6.9 K/mm3 (4.8-10.8)
[2020-01-09 11:26] LABS: Alanine Aminotransferase 20 U/L (12-78); Albumin/Globulin Ratio 1.8 (1.1-1.8); Alkaline Phosphatase 117 U/L (38-126); Aspartate Amino Transferase 31 U/L (14-36); Bilirubin,Total 0.4 mg/dl (0.2-1.3); Blood Urea Nitrogen 41 mg/dl (7-17); Calcium 9.1 mg/dl (8.4-10.2); Carbon Dioxide 30 mmol/L (22.0-30.0); Chloride 102 mmol/L (98-107); Estimated Glomerular Filt Rate 28 ml/min (>60); GFR (African American) 34 ML/MIN (>60); Globulin 2.2 g/dL (1.3-3.2); Glucose 55 mg/dl (74-100); Sodium 136 mmol/L (136-145); Total Protein,Serum 6.2 g/dl (6.3-8.2)
[2020-01-09 11:31] LABS: C-Reactive Protein 2.5 mg/L (0-4)
--- NOTE | 2020-01-09 11:32 | ECG_ITS ---
APPROVED REPORT Exam: Resting ECG HR:65 bpm ECG Measurements Heart Rate 65 AXES ME 196 P 50 QRSd 162 QRS -28 QT 468 T 103 QTc 486 <Conclusion> Normal sinus rhythm Left bundle branch block Abnormal ECG Electronically signed by : Jim Bianchi, 01/09/2020 14:02:57
[2020-01-09 12:10] LABS: Erythrocyte Sedimentation Rate 133 mm/hr (0-30)
[2020-01-31 16:05] LABS: Covid-19 Nasal PCR Sendout Lex NOT DETECTED
== END ==
PROVIDERS: Visit Provider Podiatrist
DX: Z01.818 Encounter for other preprocedural examination (principal); L03.115 Cellulitis of right lower limb; Z79.899 Other long term (current) drug therapy
CPT/HCPCS: 36415; 71046; 80053; 83036; 85025; 85651; 86140; 93005; U0004

== ENCOUNTER 2020-01-11 06:08 | Day surgery (SDC) | payer MEDICARE, SELFPAY ==
--- NOTE | 2020-01-06 13:48 | SUR.PREOP ---
01/06/2020 @ 5560--PHONE CALL MADE TO PATIENT. PATIENT UNDERSTANDS THAT LAB WORK AND COVID TESTING NEEDS TO BE COMPLETED @ 11AM ON 01/09/2020. PATIENT UNDERSTANDS IF LAB WORK AND COVID-19 TESTS ARE NOT COMPLETED BY 12PM ON THAT DATE, THE SURGERY SCHEDULED WILL BE CANCELLED AND RESCHEDULED FOR ANOTHER TIME.
[2020-01-10 13:57] VITALS: BMI 33.3
[2020-01-11] VITALS (16 sets, daily range): BP systolic 135–161; BP diastolic 41–71; PULSE 55–68; RESP 16–22; TEMP 36.4–43; O2SAT 93–100
[2020-01-11 07:06] LABS: POC Glucose,Bedside 79 (70-110)
--- NOTE | 2020-01-11 07:08 | HMH.OPNOTE ---
Date of procedure: 01/11/20 Pre-op Diagnosis:: 1. Right hallux osteomyelitis 2. Right hallux diabetic ulcer 3. Right heel callus 4. Right diabetic foot infection Post-op Diagnosis:: Same Procedure performed:: 1. Right hallux amputation 2. Right heel callus debridement 3. Right foot bone bisopy Surgeon:: Lani Cloud DPM ROOMING HOUSE INSPECTOR:: Renato Josh Anesthesia: GETA, local (0.5% marcaine plain) Estimated blood loss (mL): 10 Clinical Note:: PRE-OP AMPUTATION/INFECTION: Radiographs and MRI of the right foot were reviewed and discussed with the patient. MRI RIGHT FOOT 12/05/19 AND X-RAYS 11/25/19: 1. Abnormal increased T2 signal involving the distal phalanx of the great toe suspicious for osteomyelitis with associated surrounding cellulitis. 2. Diffuse subcutaneous edema of the foot worse along the dorsal aspect of the foot. No obvious abscess or sinus tract demonstrated. We discussed conservative versus surgical treatment options. Conservative treatment options include local wound care, oral and IV antibiotics, change in shoe wear, taping/padding, and off-loading. Discussed that patient would benefit from a wider and deeper shoe wear to accommodate the deformity. We discussed surgical intervention for amputation of the right great toe. Patient understands that there is a chance that the [toes can migrate to fill the gap or the foot may change shape after surgery. Patient also understands that they could have wound healing complications including delayed healing and infection. We discussed that if the wound does not heal, it is possible that they may need a more proximal amputation and could result in further loss of digits, loss of partial foot or loss of leg. We discussed the risks and benefits in great detail. Other surgical risks include: prolonged pain and swelling, further infection requiring oral or IV antibiotics, delay in healing of soft tissue or bone, nerve or blood vessel damage, CRPS/RSD, DVT, anesthesia complications, and even . All questions answered. Patient verbalized understanding. Consent obtained. Medical clearance per Dr. Parrish. Pre-op labs: ESR, CRP, Ha1c, CBC, CMP, EKG, CXR. 12/12/19, arterial ultrasound vascular studies findings: RT MANAN:1.1 LT MANAN:1.19, RT TBI:0.45 LT TBI:0.73, DAMPENED WAVEFORMS BILATERAL ANKLES, DECREASED PULSES BILATERAL. Patient was referred to by cardiology. She had an angiogram 12/23/19. IMPRESSION: Large widely patent right anterior tibialis artery which supplies the proximal portion of the right foot but does not have vascularity in the distal portion of the foot providing the digits. This is all consistent with small vessel disease not amenable to surgical or percutaneous revascularization. PLAN: 1. Proceed with toe amputation if clinically warranted. 2. Consider TMA based on poor digit vascularity however this requires clinical expertise from treating surgeon. 3. Risk factor modification. 4. Recommend Xarelto 2.5 twice daily combined with aspirin 81 mg daily. Discussed with patient the hallux amputation may not heal, but does not want the TMA at this time. I recommend hallux amp to address ulcer and infection and if it does not heal, we can do further debridement as needed. On the DOS, patient had a new right medial heel callus, addressed debridement today. Operative findings:: Right hallux distal tip has a diabetic ulcer approximately 1.5 x 1.5 x 0.4 cm. Wound base fibrotic with no purulent discharge. Hallux distal phalanx soft and crumbly with serous drainage from the bone. Proximal phalanx soft distally. Metatarsal head intact with no erosions or soft defects. Right medial heel callus noted with no underlying ulceration. Operative note:: On this date and time patient was deemed an appropriate surgical candidate. With informed consent signed, the patient was taken to the operating theater. The patient was positioned supine. General anesthesia was induced. No tourniquet used. Pre-op right hallux block given with 10
--- NOTE | 2020-01-11 07:43 | HMH.ANESCL ---
[facility] Anesthesia Checklist - Patient Identification Patient Identification: Arm Band - Structural Data Admitted From: Home Planned Operative Procedure/s: right great toe amputation Consent for Planned Operative Procedure(s) Verified: Yes Verified Documents: Surgical Consent, History and Physical - NPO Status Verified Time NPO: 00:00 - Additional verifications Anesthesia Reactions: Yes (pt reports having stoke like symptoms) Hx Blood Transfusions: No Blood Transfusion Reaction: No - Airway Assessment C-Spine Mobility Assessed: Yes (mp2) TMJ Mobility Assessed: Yes Dentition: Edentulous - Neurological Assessment Level of Consciousness: Awake, Alert - Anesthesia Plan Anesthesia Risk discussed: Yes Anesthesia Plan: Verified ASA Class: III Anesthesia Type: General [facility] History I have reviewed the patient's past medical history: Yes Medical History: Reports:: Coronary Artery Disease, Diabetes Mellitus Type 2, Hyperlipidemia, Hypertension, Myocardial Infarction (2010), Osteoporosis Denies:: Cancer, Diabetes Mellitus Type 1, Internal Pacemaker, MRSA, Seizures *Have you ever received a pneumonia vaccine?: Yes *Have you received a flu vaccine this season?: Yes Other Medical History: Reports: Anemia, Arthritis, Cataracts, Hoarseness, Osteoporosis, Sinus Problems. Denies: Blood Transfusion Reaction Anesthesia experience/problems:: pt reports having stroke like symptoms after anesthesia and was told that it was attributed to fentayl use. Plan is to avoid fentanyl during this procedure Laterality Cases: Right: Breast Biopsy, Bilateral: Cataract Other Surgeries: Yes: Cardiac Catheterization, Cardiac Surgery, Coronary Stent, Dilation and Curettage, Open Heart Surgery, Tubal Ligation, Other. No: Pacemaker Amputation: No Fractures: No - *Social History Educational Level: Completed High School Smoking Status: Never smoker Alcohol Intake: never Alcohol Intake Frequency:: other Substance Use Type: denies use *Occupational Status:: retired Housing: house Household Members: family *Travel in the last 8 weeks: None Family Hx:: Cancer, Coronary Artery Disease, Diabetes, Heart Attack, Hyperlipidemia, Hypertension
--- NOTE | 2020-01-11 08:06 | HMH.ANESI ---
[facility] Anesthesia Record Part I Intake, IV Amount: 900 Estimated blood loss (mL): 10 Urine output (mL): 0 Blood Pressure: 135/57 SaO2: 98 Pulse Rate: 61 Respiratory Rate: 16 Temperature: 97.9 F Patient is:: Drowsy, Stable Stable to PACU at:: 08:00
[2020-01-11 08:39] LABS: POC Glucose,Bedside 69 (70-110)
--- NOTE | 2020-01-11 08:45 | XR_ITS ---
PROCEDURE: XR FOOT RT MIN 3V CLINICAL INDICATION: post op amp Follow-up amputation COMPARISON: [id number] XR foot RT min 3V from 08/04/2018 FTWBR3 XR foot wt bearing RT 3V from 10/25/2018 FTWBR3 XR foot wt bearing RT 3V from 11/22/2018 XR FOOT RT MIN 3V from 11/25/2019 FINDINGS: Status post amputation at the 1st metatarsophalangeal joint. There is generous amount of soft tissue gas medially at the amputation site. Soft tissue swelling is present medially. There is generalized vascular calcification. IMPRESSION: Status post amputation at the 1st metatarsophalangeal joint with soft tissue swelling and soft tissue gas Dictated by: Federico Justice MD 01/11/2020 10:39 Electronically signed by Federico Justice MD in [place] 01/11/2020 10:39
[2020-01-11 09:51] LABS: POC Glucose,Bedside 114 (70-110)
--- NOTE | 2020-01-11 10:14 | P.PN_ITS ---
[facility] Anesthesia Record Part II Discharge Time: 08:30 Destination: Surgical Day Care (OP Surgery) PACU nurse assessment reviewed?: Yes Patient Condition:: Good Anesthesia Complications:: None Swallowing reflex intact?: Yes Cyanosis?: No Blood Pressure: 141/61 Pulse Rate: 57 Temperature: 97.9 F Mental Status: Alert & Oriented Pain level:: 0 Nausea and/or vomitting:: None Intake, IV Amount: 0
--- NOTE | 2020-01-11 10:15 | SUR.PHASEII ---
RJTW=[id number]. Pt sitting on bedside eating breakfast. family at bedside
== END 2020-01-11 11:10 | disposition home or self-care (01) ==
LOC: OR 06:09
PROVIDERS: PCP Internal Medicine Adolescent Medicine; Visit Provider Podiatrist
PROC: (CPT 28820; principal; 2020-01-11 07:30)
DX: E11.621 Type 2 diabetes mellitus with foot ulcer (principal); M86.671 Other chronic osteomyelitis, right ankle and foot; L97.514 Non-pressure chronic ulcer of other part of right foot with necrosis of bone; L03.115 Cellulitis of right lower limb; Z91.81 History of falling; I25.10 Atherosclerotic heart disease of native coronary artery without angina pectoris; I25.2 Old myocardial infarction; I77.1 Stricture of artery; Z95.5 Presence of coronary angioplasty implant and graft; Z95.1 Presence of aortocoronary bypass graft; Z91.040 Latex allergy status; Z88.8 Allergy status to other drugs, medicaments and biological substances; Z79.4 Long term (current) use of insulin; Z79.899 Other long term (current) drug therapy; Z79.01 Long term (current) use of anticoagulants; Z79.82 Long term (current) use of aspirin
CPT/HCPCS: 28820; 73630; 82962; 87070; 87077; 87186; 87205; 88305; 88311; 96374; J2405; J3370

== ENCOUNTER → 2020-02-02 12:06 | Outpatient (CLI) | payer MEDICARE, SELFPAY ==
[2020-02-02 13:18] LABS: Basophils # 0.1 K/mm3 (0-0.2); Basophils % 0.6 % (0.1-2.0); Eosinophils # 1.1 K/mm3 (0.0-0.4); Eosinophils % 11.3 % (0.1-12.0); Hematocrit 35.5 % (37.0-47.0); Hemoglobin 11.7 g/dL (12.2-16.2); Lymphocytes % 32.7 % (10-50); Mean Corpuscular Hemoglobin 32.4 pg (27.0-31.2); Mean Corpuscular Volume 98.2 fl (81-99); Mean Platelet Volume 9.1 fl (7.4-10.4); Monocytes # 0.9 K/mm3 (0.1-1.0); Monocytes % 9.2 % (1.7-9.3); Neutrophils # 4.3 K/mm3 (1.8-7.8); Neutrophils % 46.3 % (37.0-80.0); Platelet Count 160 K/mm3 (142-424); Red Blood Count 3.61 M/mm3 (4.20-5.40); Red Cell Distribution Width 13.5 % (11.5-17.5); White Blood Count 9.3 K/mm3 (4.8-10.8)
[2020-02-02 14:14] LABS: Alanine Aminotransferase 30 U/L (12-78); Albumin Level 3.5 g/dl (3.5-5.0); Albumin/Globulin Ratio 1.4 (1.1-1.8); Alkaline Phosphatase 223 U/L (38-126); Anion Gap 10.4 mEq/L (5-15); Aspartate Amino Transferase 52 U/L (14-36); Bilirubin,Total 0.7 mg/dl (0.2-1.3); Blood Urea Nitrogen 68 mg/dl (7-17); Calcium 8.9 mg/dl (8.4-10.2); Carbon Dioxide 25 mmol/L (22.0-30.0); Chloride 102 mmol/L (98-107); Estimated Glomerular Filt Rate 23 ml/min (>60); GFR (African American) 28 ML/MIN (>60); Globulin 2.5 g/dL (1.3-3.2); Glucose 104 mg/dl (74-100); Potassium 4.4 mmoL/L (3.5-5.1); Sodium 133 mmol/L (136-145)
[2020-02-02 14:19] LABS: C-Reactive Protein 1.5 mg/L (0-4)
[2020-02-02 14:21] LABS: Erythrocyte Sedimentation Rate 31 mm/hr (0-30)
== END ==
PROVIDERS: Visit Provider Podiatrist
DX: E11.621 Type 2 diabetes mellitus with foot ulcer (principal); L97.519 Non-pressure chronic ulcer of other part of right foot with unspecified severity; Z98.890 Other specified postprocedural states; Z79.4 Long term (current) use of insulin
CPT/HCPCS: 36415; 80053; 85025; 85651; 86140

== ENCOUNTER → 2020-02-09 10:11 | Outpatient (CLI) | payer MEDICARE, SELFPAY ==
[2020-02-09 10:52] LABS: Basophils # 0.1 K/mm3 (0-0.2); Basophils % 0.6 % (0.1-2.0); Eosinophils # 2.2 K/mm3 (0.0-0.4); Hematocrit 37.3 % (37.0-47.0); Hemoglobin 12.1 g/dL (12.2-16.2); Lymphocytes # 2.6 K/mm3 (0.7-4.5); Mean Corpuscular HGB Conc 32.5 g/dL (31.8-35.4); Mean Corpuscular Hemoglobin 31.6 pg (27.0-31.2); Mean Corpuscular Volume 97.2 fl (81-99); Monocytes % 7.3 % (1.7-9.3); Neutrophils # 7.8 K/mm3 (1.8-7.8); Neutrophils % 57.1 % (37.0-80.0); Platelet Count 104 K/mm3 (142-424); Red Blood Count 3.83 M/mm3 (4.20-5.40); Red Cell Distribution Width 12.9 % (11.5-17.5); White Blood Count 13.7 K/mm3 (4.8-10.8)
[2020-02-09 11:30] LABS: Alanine Aminotransferase 55 U/L (12-78); Albumin Level 3.5 g/dl (3.5-5.0); Albumin/Globulin Ratio 1.3 (1.1-1.8); Alkaline Phosphatase 281 U/L (38-126); Anion Gap 15.5 mEq/L (5-15); Aspartate Amino Transferase 72 U/L (14-36); Blood Urea Nitrogen 71 mg/dl (7-17); Calcium 9.1 mg/dl (8.4-10.2); Carbon Dioxide 27 mmol/L (22.0-30.0); Chloride 96 mmol/L (98-107); Estimated Glomerular Filt Rate 19 ml/min (>60); GFR (African American) 23 ML/MIN (>60); Globulin 2.6 g/dL (1.3-3.2); Glucose 74 mg/dl (74-100); Potassium 4.5 mmoL/L (3.5-5.1); Sodium 134 mmol/L (136-145); Total Protein,Serum 6.1 g/dl (6.3-8.2)
[2020-02-09 11:35] LABS: C-Reactive Protein 6.1 mg/L (0-4)
[2020-02-09 12:24] LABS: Erythrocyte Sedimentation Rate 21 mm/hr (0-30)
== END ==
PROVIDERS: Visit Provider Podiatrist
DX: Z98.890 Other specified postprocedural states (principal); I89.0 Lymphedema, not elsewhere classified
CPT/HCPCS: 36415; 80053; 85025; 85651; 86140

== ENCOUNTER → 2020-02-16 12:03 | Outpatient (CLI) | payer MEDICARE, SELFPAY ==
--- NOTE | 2020-02-16 12:07 | XR_ITS ---
PROCEDURE: XR FOOT WT BEARING RT 3V CLINICAL INDICATION: postop views Follow-up amputation COMPARISON: FTWBR3 XR foot wt bearing RT 3V from 10/25/2018 FTWBR3 XR foot wt bearing RT 3V from 11/22/2018 XR FOOT RT MIN 3V from 11/25/2019 XR FOOT RT MIN 3V from 01/11/2020 FINDINGS: There has been amputation at the 1st metatarsophalangeal joint. Bandage artifact is present at this area. No bony erosive change evident. Previously noted soft tissue gas is not apparent on today's exam. There is generalized osteopenia. IMPRESSION: Status post amputation at the 1st metatarsophalangeal junction with no acute finding Dictated by: Federico Justice MD 02/16/2020 16:02 Electronically signed by Federico Justice MD in [place] 02/16/2020 16:02
== END ==
PROVIDERS: PCP Internal Medicine Adolescent Medicine; Visit Provider Podiatrist
DX: Z98.890 Other specified postprocedural states (principal)
CPT/HCPCS: 73630

== ENCOUNTER → 2020-04-27 16:17 | Outpatient (CLI) | payer MEDICARE, SELFPAY ==
--- NOTE | 2020-04-27 16:29 | CT_ITS ---
PROCEDURE: CT HEAD/BRAIN WO CON CLINICAL INDICATION: TRAUMATIC INJURY TO THE HEAD Head injury with headache/pain, contusion, abrasion or hematoma COMPARISON: CT HDWO CT HEAD W/O CONTRAST from 05/30/2017 TECHNIQUE: Axial images obtained. All CT scans at the facility use one or more dose reduction, viz: automated exposure control, ma/kV adjustment per patient size (including targeted exams where dose is matched to indication, i.e. head), or iterative reconstruction technique. FINDINGS: No midline shift, mass effect, intracranial hemorrhage, hydrocephalus, or extra-axial fluid collection is evident. There are scattered basal ganglia calcifications. Atherosclerotic calcification also noted of the cavernous portion of the internal carotid arteries.. There is generalized atrophy with hypoattenuation of the periventricular white matter consistent with microangiopathic changes. The calvarium has an unremarkable appearance. No mastoid effusion. No sinus air-fluid level. IMPRESSION: No acute intracranial finding Dictated by: Federico Justice MD 04/27/2020 16:43 Federico Justice MD in [place] 04/27/2020 16:43
[2020-04-27 16:35] LABS: Basophils % 0.5 % (0.1-2.0); Eosinophils # 0.4 K/mm3 (0.0-0.4); Eosinophils % 4.6 % (0.1-12.0); Hematocrit 27.9 % (37.0-47.0); Hemoglobin 9.5 g/dL (12.2-16.2); Lymphocytes # 1.4 K/mm3 (0.7-4.5); Lymphocytes % 17.1 % (10-50); Mean Corpuscular Hemoglobin 33.1 pg (27.0-31.2); Mean Corpuscular Volume 97.3 fl (81-99); Mean Platelet Volume 9.2 fl (7.4-10.4); Monocytes # 0.8 K/mm3 (0.1-1.0); Monocytes % 9.2 % (1.7-9.3); Neutrophils # 5.6 K/mm3 (1.8-7.8); Neutrophils % 68.7 % (37.0-80.0); Platelet Count 211 K/mm3 (142-424); Red Blood Count 2.86 M/mm3 (4.20-5.40); Red Cell Distribution Width 13.9 % (11.5-17.5); White Blood Count 8.2 K/mm3 (4.8-10.8)
[2020-04-27 17:33] LABS: Anion Gap 15.4 mEq/L (5-15); Blood Urea Nitrogen 44 mg/dl (7-17); Calcium 8.9 mg/dl (8.4-10.2); Carbon Dioxide 28 mmol/L (22.0-30.0); Chloride 98 mmol/L (98-107); Estimated Glomerular Filt Rate 18 ml/min (>60); GFR (African American) 22 ML/MIN (>60); Glucose 121 mg/dl (74-100); Potassium 4.4 mmoL/L (3.5-5.1); Sodium 137 mmol/L (136-145)
== END ==
PROVIDERS: Visit Provider Internal Medicine Adolescent Medicine
DX: R60.1 Generalized edema (principal); S09.90XA Unspecified injury of head, initial encounter
CPT/HCPCS: 36415; 70450; 80048; 85025

== ENCOUNTER → 2020-07-02 18:11 | Outpatient (CLI) | payer MEDICARE, SELFPAY | PROVIDERS: Visit Provider Podiatrist | DX: S90.02XA Contusion of left ankle, initial encounter (principal) | CPT/HCPCS: 87070; 87077; 87186; 87205 ==

== ENCOUNTER 2020-07-23 18:42 | Observation (INO) | payer MEDICARE, MEDICAID, SELFPAY ==
[2020-07-23] VITALS (9 sets, daily range): BP systolic 156–192; BP diastolic 55–77; PULSE 54–75; RESP 15–18; TEMP 36.7–37.1; O2SAT 95–99; BMI 31.6
[2020-07-23 19:07] LABS: Microscopic, Urine URINE MICROSCOPIC (MICROSCOPIC)
[2020-07-23 19:11] LABS: Appearance,Urine CLEAR (Clear); Bilirubin,Urine Negative (Negative); Blood, Urine TRACE-I (Negative); Color,Urine YELLOW (Yellow); Glucose,Urine (UA) Negative (Negative); Ketones,Urine Negative (Negative); Leukocyte Esterase,Urine Negative (Negative); Nitrate,Urine Negative (Negative); PH,Urine 6.5 (5.0-8.5); Protein,Urine 2+ (Negative); Specific Gravity, Urine 1.015 (1.005-1.030); Urobilinogen,Urine 0.2 EU/dl (0.2)
--- NOTE | 2020-07-23 19:14 | XR_ITS ---
PROCEDURE: XR CHEST PORTABLE CLINICAL HISTORY: cough Fever and cough COMPARISON: CR XR CHEST 2V from 05/11/2019 CR XR CHEST 2V from 12/12/2019 CR XR CHEST 2V from 01/09/2020 FINDINGS: Cardiomegaly. Prior median sternotomy. No CHF. The lungs are clear without infiltrates, suspicious nodules, or pleural effusions. There are old right rib fractures in there is garment artifact along the lower thoracic spine. Deformities noted involving the humeral head with flattening possibly related to an old fracture. IMPRESSION: No acute findings. Dictated by: Federico Justice MD 07/23/2020 21:45 Federico Justice MD in [place] 07/23/2020 21:45
--- NOTE | 2020-07-23 19:18 | HMH.EDGENADL ---
ED Disposition Condition on Discharge: Good - Critical Care Critical Care Time: No <OlyaFran - Last Filed: 07/23/20 19:45> <Darell Meehan - Last Filed: 07/23/20 22:27> Clinical Impression: General weakness, Poor appetite, Cellulitis of left lower leg, Small vessel arterial disease due to type 2 diabetes mellitus, Obesity (BMI 30.0-34.9), Type 2 diabetes mellitus with diabetic neuropathy, with long-term current use of insulin, Elevated erythrocyte sedimentation rate, Stage 4 chronic kidney disease Disposition: Admitted as Observation Attestation: On 07/23/20, the high probability of a clinically significant, sudden or life threatening deterioration of the following system(s) required my full and direct attention, intervention and personal management. The time I documented below is in addition to time spent performing reported procedures but includes the following listed in this critical care notation. Medical Decision Making - Medical Records Medical records reviewed: Yes: I reviewed the patient's medical records. - Donnell Inquiry Pt receiving controlled substance: No <Fran Dobson - Last Filed: 07/23/20 19:45> - Lab Data Lab results reviewed: Yes: I reviewed the patient's lab results. Result diagrams: 07/23/20 19:00 07/23/20 19:00 - Physician Consults Physician Consulted: yakov Reason -: Admission <Darell Meehan - Last Filed: 07/23/20 22:27> Vital Signs: 07/23/20 18:56 07/23/20 20:13 07/23/20 20:43 Temperature 98.8 F Temperature Source Oral Pulse Rate [Radial] 58 L 66 54 L Respiratory Rate 17 Blood Pressure [Right Arm] 191/77 H 192/71 H 173/55 H Blood Pressure Mean [Right Arm] 115 111 94 Blood Pressure Source [Right Arm] Automatic Cuff Blood Pressure Position [Right Arm] Sitting 02 Sat by Pulse Oximetry 99 96 97 Oxygen Delivery Method Room Air 07/23/20 21:43 07/23/20 22:09 07/23/20 22:17 Temperature Temperature Source Pulse Rate [Radial] 59 L 74 Respiratory Rate Blood Pressure [Right Arm] 178/56 H 173/71 H Blood Pressure Mean [Right Arm] 96 105 Blood Pressure Source [Right Arm] Blood Pressure Position [Right Arm] 02 Sat by Pulse Oximetry 97 98 Oxygen Delivery Method Room Air - Lab Data Lab Results 07/23/20 17:05: Urine Color Yellow, Urine Appearance Clear, Urine pH 6.5, Ur Specific Amonate 1.015, Urine Protein 2+, Urine Glucose (UA) Negative, Urine Ketones Negative, Urine Blood Trace-i, Urine Nitrate Negative, Urine Bilirubin Negative, Urine Urobilinogen 0.2, Ur Leukocyte Esterase Negative, Urine RBC 3-5, Urine WBC 5-10, Ur Squamous Epith Cells 5-10, Urine Bacteria 1+ 07/23/20 19:00: WBC 6.3, RBC 3.50 L, Hgb 10.8 L, Hct 34.2 L, MCV 97.5, MCH 30.8, MCHC 31.6 L, RDW 12.9, Plt Count 161, MPV 7.4, Neut % (Auto) 64.0, Lymph % (Auto) 23.2, [place] % (Auto) 8.6, Eos % (Auto) 3.7, Baso % (Auto) 0.6, Neut # (Auto) 4.0, Lymph # (Auto) 1.5, [place] # (Auto) 0.5, Eos # (Auto) 0.2, Baso # (Auto) 0.0 07/23/20 19:00: Sodium 140, Potassium 4.1, Chloride 102, Carbon Dioxide 32 H, Anion Gap 10.1, BUN 38 H, Creatinine 1.50 H, Estimated Creat Clear 43, Estimated GFR 34 L, Est GFR ( Amer) 41 L, Glucose 144 H, Calcium 10.0, Total Bilirubin 0.8, AST 29, ALT 14, Alkaline Phosphatase 89, Total Protein 7.0, Albumin 4.2, Globulin 2.8, Albumin/Globulin Ratio 1.5 07/23/20 19:00: SARS-CoV-2 IgG Ab (Rapid) Negative, SARS-CoV-2 IgM Ab (Rapid) Negative 07/23/20 19:45: ESR 103 H 07/23/20 19:45: C-Reactive Protein 1.4, Procalcitonin 0.062 Orders (Tests/Meds): ED MEDICATIONS Generic Name Dose Route Start Last Admin Trade Name Freq PRN Reason Stop Dose Admin Sodium Chloride 1,000 mls @ 999 mls/hr 07/23/20 19:00 07/23/20 19:52 Sod Chlor 0.9% 1000ml Bag IV 07/23/20 20:00 999 mls/hr .[id number] MARCIA Administration Discontinued Medications Generic Name Dose Route Start Last Admin Trade Name Freq PRN Reason Stop Dose Admin Pantoprazole Sodium 40 mg 11
[2020-07-23 19:44] LABS: Bacteria,Urine 1+ /lpf
[2020-07-23 19:55] LABS: Basophils % 0.6 % (0.1-2.0); Eosinophils # 0.2 K/mm3 (0.0-0.4); Eosinophils % 3.7 % (0.1-12.0); Hematocrit 34.2 % (37.0-47.0); Hemoglobin 10.8 g/dL (12.2-16.2); Lymphocytes # 1.5 K/mm3 (0.7-4.5); Lymphocytes % 23.2 % (10-50); Mean Corpuscular HGB Conc 31.6 g/dL (31.8-35.4); Mean Corpuscular Hemoglobin 30.8 pg (27.0-31.2); Mean Corpuscular Volume 97.5 fl (81-99); Mean Platelet Volume 7.4 fl (7.4-10.4); Monocytes # 0.5 K/mm3 (0.1-1.0); Monocytes % 8.6 % (1.7-9.3); Platelet Count 161 K/mm3 (142-424); Red Cell Distribution Width 12.9 % (11.5-17.5); White Blood Count 6.3 K/mm3 (4.8-10.8)
[2020-07-23 20:02] LABS: Alanine Aminotransferase 14 U/L (12-78); Albumin Level 4.2 g/dl (3.5-5.0); Albumin/Globulin Ratio 1.5 (1.1-1.8); Alkaline Phosphatase 89 U/L (38-126); Anion Gap 10.1 mEq/L (5-15); Aspartate Amino Transferase 29 U/L (14-36); Bilirubin,Total 0.8 mg/dl (0.2-1.3); Blood Urea Nitrogen 38 mg/dl (7-17); Carbon Dioxide 32 mmol/L (22.0-30.0); Chloride 102 mmol/L (98-107); Creatinine Clearance Estimated 43 mL/min (50-200); Estimated Glomerular Filt Rate 34 ml/min (>60); GFR (African American) 41 ML/MIN (>60); Globulin 2.8 g/dL (1.3-3.2); Glucose 144 mg/dl (74-100); Potassium 4.1 mmoL/L (3.5-5.1); Sodium 140 mmol/L (136-145)
[2020-07-23 20:29] LABS: Erythrocyte Sedimentation Rate 103 mm/hr (0-30)
[2020-07-23 20:31] LABS: C-Reactive Protein 1.4 mg/L (0-4)
[2020-07-23 20:34] LABS: Coronavirus 19 IgG Antibody Negative (Negative); Coronavirus 19 IgM Antibody Negative (Negative)
[2020-07-23 20:44] LABS: Procalcitonin 0.062 ng/mL (0.0-2.0)
--- NOTE | 2020-07-23 21:09 | PC.NURSE ---
Assisted patient to bathroom, patient ambulated with standby assistance, and helped back to bed. MD at bedside upon patient returning to room, inspecting wounds on legs. MD requested dressing change to be performed on lower leg. Patient requesting something for her heartburn at this time as well, MD made aware.
--- NOTE | 2020-07-23 21:18 | PC.NURSE ---
at bedside. wound redressed.
--- NOTE | 2020-07-23 21:45 | PC.NURSE ---
Dr Yoon paged at this time for possible admission
--- NOTE | 2020-07-23 21:46 | PC.NURSE ---
Dr Meehan speaking with Dr Yoon at this time regarding admission
--- NOTE | 2020-07-23 22:03 | PC.NURSE ---
Dr Yoon agreed to admit, 2500 notified for bed assignment
--- NOTE | 2020-07-23 22:10 | PC.NURSE ---
wound culture swab obtained for anterior lle wound. covid swab per family request collected and sent to lab.
[2020-07-23 22:13] LABS: Adenovirus,PCR Not Detected (NotDetected); Bordetella Pertussis Not Detected (NotDetected); Chlamydophila Pneumoniae, PCR Not Detected (NotDetected); Coronavirus 19, PCR Not Detected (NotDetected); Coronavirus 229E Not Detected (NotDetected); Coronavirus NL63 Not Detected (NotDetected); Coronavirus OC43 Not Detected (NotDetected); Coronovirus HKU1,PCR Not Detected (NotDetected); Human Metapneumovirus Not Detected (NotDetected); Influenza A, PCR Not Detected (NotDetected); Influenza AH1, 2009 Not Detected (NotDetected); Influenza AH1, PCR Not Detected (NotDetected); Influenza AH3,PCR Not Detected (NotDetected); Influenza B, PCR Not Detected (NotDetected); Mycoplasma Pneumoniae, PCR Not Detected (NotDetected); Parainfluenza 1, PCR Not Detected (NotDetected); Parainfluenza 2, PCR Not Detected (NotDetected); Parainfluenza 3, PCR Not Detected (NotDetected); Parainfluenza 4, PCR Not Detected (NotDetected); Respiratory Syncytial Virus Not Detected (NotDetected); Rhinovirus/Enterovirus Not Detected (NotDetected)
--- NOTE | 2020-07-23 22:20 | PC.NURSE ---
ambulated to and from bathroom with standby assist. pt independent with toileting. vss. replaced back to her bed and repositioned to comfort. blanket provided. family remains at bedside
[2020-07-23 22:30] LABS: Lactic Acid 2.1 mmol/L (0.7-2.1)
[2020-07-23 22:59] LABS: T4 (Thyroxine) 8.6 ug/dl (5.53-11.0)
[2020-07-23 23:34] LABS: Reflex Lactic Add Lactic Reflex
--- NOTE | 2020-07-23 23:37 | PC.NURSE ---
Patient assisted up the bathroom at this time. Report she wanted to try to have a bm, unable to. Pt assisted back to bed with standby assist. VS taken. No further needs voiced. Lab at bedside to draw Lactic Acid at this time.
--- NOTE | 2020-07-23 23:54 | PC.NURSE ---
pt arrived to floor via wheelchair at [id number]. Josey
[2020-07-24] VITALS (21 sets, daily range): BP systolic 103–189; BP diastolic 52–91; PULSE 49–120; RESP 13–18; TEMP 36.6–37.5; O2SAT 90–100; BMI 30.8
--- NOTE | 2020-07-24 | IR_ITS ---
APPROVED REPORT Patient Location: Inpatient [employer] Lac[employer] Coach: IGNACIO Sandhu RT (R) PROCEDURES Left heart catheterization Left ventriculogram Selective coronary angiogram Left internal mammary angiography Selective engagement of the saphenous vein graft to the circumflex artery Selective engagement of the saphenous vein graft to the right coronary INDICATION Coronary artery disease, Acute non-ST elevation myocardial infarction, History of coronary bypass surgery Informed consent was obtained prior to the procedure. COMPLICATIONS none Estimated Blood Loss: less than 10 mls TECHNIQUE One percent lidocaine used to anesthetize the right groin. The right femoral artery was accessed via the Seldinger technique and a 5 Latvian sheath was placed in the right femoral artery. A JL 4, JR4 and an AR-2 catheter were used to perform left heart catheterization, left ventriculogram selective coronary angiography as well as selective engagement of the 2 vein grafts and the left internal mammary artery. At the end of the procedure the patient was transferred to the postop holding area in stable condition for sheath removal. ANGIOGRAPHIC RESULTS The left main artery Has a distal 20 to 30% stenosis The left anterior descending artery Is proximally occluded The circumflex artery Proximally occluded The right coronary artery Proximally occluded The HARRIS ventriculogram reveals Normal at 60% The left ventricular end-diastolic pressure 10 mmHg The left internal mammary artery is widely patent to the LAD The saphenous vein graft supplying the right coronary is widely patent The saphenous vein graft supplying the circumflex artery is widely patent. This is a skip graft in which both limbs of the graft are widely patent and supplying the 2 obtuse marginal arteries. IMPRESSION Coronary disease as described above with excellent surgical revascularization Normal ejection fraction Normal left ventricular end-diastolic pressure PLAN 1. Look for secondary etiologies for the elevated troponin 2. Continue therapy for ischemic heart disease 3. Consider loop recorder given apparent syncope and presence of left bundle branch block Electronically signed by : Emiliano Pineda, 07/25/2020 08:47:15
[2020-07-24 00:04] LABS: Lactic Acid Follow Up (RFLX 1) 1.5 mmol/L (0.7-2.1)
--- NOTE | 2020-07-24 02:54 | PC.WOUNDNOTE ---
Wound Location: Length: Width: Depth: Undermining Y/N: Tunneling cm: Granulation %: Slough/necrotic tissue %: Inflammation/swelling Y/N:n Pain and/or tenderness Y/N:n Exudate: Cloudy/milky Yellow Consistency: Amount: None Odor Y/N:n left lower extremity
--- NOTE | 2020-07-24 02:58 | PC.WOUNDNOTE ---
Wound Location: bottom of right heel Length: Width: Depth: Undermining Y/N: n Tunneling cm: Granulation %: Slough/necrotic tissue %: Inflammation/swelling Y/N:n Pain and/or tenderness Y/N:n Exudate: Color:yellow Clear Lizzie Cloudy/milky Randall Red Green Yellow Brown Ramirez Blue Consistency: Amount: None Odor Y/N:n
--- NOTE | 2020-07-24 04:12 | PC.NURSE ---
patient admitted to floor, on r/a. patient ambulatory in room to and from bathroom with standby assist. breath sounds clear throughout. pulses x 4 extremities palpable +2 and regular. bowel sounds active x 4. voiding clear yellow urine. wraps on bilateral lower extremities. wounds x 2 left lower extremity and bottom of right heel. dressing taken down, pictures taken and uploaded into [employer] after consent signed. wounds redressed. daughter at bedside
[2020-07-24 05:29] LABS: POC Glucose,Bedside 113 (70-110)
[2020-07-24 07:23] LABS: Basophils % 0.4 % (0.1-2.0); Eosinophils # 0.3 K/mm3 (0.0-0.4); Eosinophils % 4.3 % (0.1-12.0); Hematocrit 32.2 % (37.0-47.0); Hemoglobin 9.9 g/dL (12.2-16.2); Lymphocytes # 1.5 K/mm3 (0.7-4.5); Lymphocytes % 20.5 % (10-50); Mean Corpuscular HGB Conc 30.7 g/dL (31.8-35.4); Mean Corpuscular Volume 97.6 fl (81-99); Mean Platelet Volume 7.5 fl (7.4-10.4); Monocytes # 0.7 K/mm3 (0.1-1.0); Monocytes % 9.7 % (1.7-9.3); Neutrophils # 4.7 K/mm3 (1.8-7.8); Neutrophils % 65.1 % (37.0-80.0); Platelet Count 164 K/mm3 (142-424); White Blood Count 7.1 K/mm3 (4.8-10.8)
--- NOTE | 2020-07-24 07:23 | P.CONPHA_ITS ---
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 (Acute) Weakness (Acute) Type 2 diabetes mellitus with diabetic neuropathy, with long-term current use of insulin (Chronic) Obesity (BMI 30.0-34.9) (Acute) Stage 4 chronic kidney disease (Chronic) - VTE Risk Labs: VTE Related Lab Results Hgb 10.8 g/dL (12.2-16.2) L 07/23/20 19:00 Hct 34.2 % (37.0-47.0) L 07/23/20 19:00 Plt Count 161 K/mm3 (142-424) 07/23/20 19:00 BUN 38 mg/dl (7-17) H 07/23/20 19:00 Creatinine 1.50 mg/dl (0.52-1.04) H 07/23/20 19:00 Estimated Creat Clear 43 mL/min (50-200) 07/23/20 19:00 VTE Score: 7 VTE Risk Level: Moderate Risk - Prophylaxis VTE Prophylaxis Ordered?: Yes Types of VTE Prophylaxis: TEDS Knee High Location of Applied Device: Bilateral Lower Extremeties
[2020-07-24 07:32] LABS: Chloride 106 mmol/L (98-107); Sodium 140 mmol/L (136-145)
[2020-07-24 07:35] LABS: Blood Urea Nitrogen 29 mg/dl (7-17); Calcium 9.6 mg/dl (8.4-10.2); Carbon Dioxide 28 mmol/L (22.0-30.0); Creatinine Clearance Estimated 48 mL/min (50-200); Estimated Glomerular Filt Rate 40 ml/min (>60); GFR (African American) 49 ML/MIN (>60); Glucose 110 mg/dl (74-100)
--- NOTE | 2020-07-24 09:12 | HMH.PHAINT ---
Medication reconciliation completed using pharmacy claims data and patient/relative interview.
--- NOTE | 2020-07-24 10:03 | ECG_ITS ---
APPROVED REPORT Exam: Resting ECG HR:50 bpm ECG Measurements Heart Rate 50 AXES SD 172 P 42 QRSd 144 QRS 76 QT 554 T 76 QTc 505 Conclusion Sinus bradycardia Left bundle branch block Abnormal ECG Electronically signed by : Royer Parrish, 07/31/2020 19:05:33
--- NOTE | 2020-07-24 10:20 | PC.NURSE ---
REPORTED ECG RESULTS TO BONNIE CORTES TO INFORM CARE TEAM,
--- NOTE | 2020-07-24 11:13 | HMH.HP ---
*Admission Date: 07/23/20 *Chief complaint: fatigue *History of present illness: 69-year-old female who presented to the ER yesterday due to worsening fatigue, abdominal pain, diarrhea for the past few days. States she just felt awful. Had no energy to do anything. Denies fever, cough, congestion, shortness of breath. Overall just felt ill and knew she needed to come to the ER . Assessment in the ER showed chronic kidney disease with creatinine better than baseline. Also showed sinus bradycardia on vitals, significantly elevated ESR, concern for cellulitis of left lower extremity, and continued diarrhea. Unable to tolerate p.o. therapy. Admitted to medicine for further management. On assessment this morning, she states that she had had loose watery yellow diarrhea for the past 3 to 4 days. Has been extremely fatigued and experiencing chills. Denies pat fever but has not wanted to do more than just sit in her chair to go to the bathroom. Reports having recently finished a course of Levaquin for concern for left lower extremity stasis ulcer with cellulitis. Proceeded to develop diarrhea after finishing her antibiotics. Pleasant on interview this morning, family at bedside and updated of plan. [facility] History I have reviewed the patient's past medical history: Yes Medical History: Reports:: Coronary Artery Disease, Diabetes Mellitus Type 2, Hyperlipidemia, Hypertension, Myocardial Infarction, Osteoporosis Denies:: Cancer, Diabetes Mellitus Type 1, Internal Pacemaker, MRSA, Seizures *Have you ever received a pneumonia vaccine?: Yes *Have you received a flu vaccine this season?: Yes Other Medical History: Reports: Anemia, Arthritis, Cataracts, Hoarseness, Osteoporosis, Sinus Problems. Denies: Blood Transfusion Reaction Laterality Cases: Right: Breast Biopsy Other Surgeries: Yes: Cardiac Catheterization, Cardiac Surgery, Coronary Stent, Dilation and Curettage, Open Heart Surgery, Tubal Ligation, Other. No: Pacemaker Amputation: No Fractures: No - *Social History Smoking Status: Never smoker Alcohol Intake: never Alcohol Intake Frequency:: other Substance Use Type: denies use *Occupational Status:: disabled Housing: house Household Members: family *Travel in the last 8 weeks: None Family Hx:: Cancer, Coronary Artery Disease, Diabetes, Heart Attack, Hyperlipidemia, Hypertension Review of Systems - Review of Systems Review of systems:: pertinent systems reviewed and negative unless documented below (14 point review of systems performed, pertinent positives and negatives as per HPI) - *Neurologic Reports weakness, Denies headache(s) Meds Home Medications Medication Instructions Recorded Confirmed Type aspirin 81 mg tablet,delayed 81 mg PO DAILY 09/17/17 07/24/20 History release clopidogrel 75 mg tablet 75 mg PO DAILY 09/17/17 07/24/20 History ferrous sulfate 142 mg (45 mg 142 mg PO DAILY tab 09/17/17 07/24/20 History iron) tablet,extended release furosemide 40 mg tablet 40 mg PO DAILY 09/17/17 07/24/20 History sitagliptin 50 mg tablet 50 mg PO DAILY 09/17/17 07/24/20 History famotidine 20 mg tablet 20 mg PO BID tab 09/18/17 07/24/20 History gabapentin 100 mg capsule 100 mg PO TID cap 09/18/17 07/24/20 History Pravastatin Sodium [Pravachol] 80 mg PO HS 05/28/18 07/24/20 History citalopram 20 mg tablet 20 mg PO DAILY 90 Days tab 09/16/18 07/24/20 History diclofenac sodium 1 % topical gel 4 g TOPICAL QID PRN #30 g 05/10/19 07/24/20 Rx Cholecalciferol (Vitamin D3) 1,000 unit PO DAILY 05/12/19 07/24/20 History [Vitamin D3 1,000 Unit Tab] carvedilol 6.25 mg tablet 6.25 mg PO HS tab 05/20/19 07/24/20 History losartan 100 mg tablet 100 mg PO DAILY tab 10/04/19 07/24/20 History Omeprazole [Omeprazole 20mg 20 mg PO DAILY 01/10/20 07/24/20 History Capsule] tramadol 50 mg tablet 50 mg PO Q6H PRN #30 tab 01/12/20 07/24/20 Rx hydrocortisone 2.5 % lotion 1 appful TOPICAL DIRECTED PRN 02/09/20 07/24/20 History insulin [employer]
[2020-07-24 11:56] LABS: NT Pro Brain Natriuretic Pep. 4140 pg/mL (0-125)
--- NOTE | 2020-07-24 12:45 | HMH.CNCARD ---
History of Present Illness Consult date: 07/24/20 Requesting physician: Sathish Antoine Chief complaint: weakness Additional Medical History:: 1. Coronary artery disease A. History of coronary bypass grafting in 2010. B. Abnormal stress test, May/2016, with anterior ischemia. C. Cardiac catheterization, 05/2016, left main normal, LAD occluded at mid vessel, circumflex and RCA proximally occluded. Patent DREW to LAD, SVG to circumflex onto 2 separate OM arteries, SVG to posterior descending artery widely patent. Renal arteries normal. D. NSTEMI, 05/2017, KIMMY to PDA and angioplasty to PLVB via SVG. E. LHC, 05/2019, ANGIOGRAPHIC RESULTS The left main artery Distally occluded The left anterior descending artery Occluded at the left main level The circumflex artery Occluded at the left main level The right coronary artery Proximally occluded The HARRIS ventriculogram reveals Ejection fraction 45% The left ventricular end-diastolic pressure 10 mmHg The DREW graft to the LAD is widely patent The saphenous vein graft to the circumflex artery is widely patent and skips from the 1st-2nd obtuse marginal arteries. Both limbs are patent The saphenous vein graft to the right coronary artery is widely patent The right renal artery has a dual arterial supply of both arteries are normal The left renal artery singular normal IMPRESSION Adequate surgical revascularization as described above Mildly reduced ejection fraction Normal left ventricular end-diastolic pressure Normal renal arteries PLAN 1. Medical management 2. Chronic kidney disease, stage IV, followed by Dr. Db Driver. Chronic anemia 3. Hypertension A. Echo, 05/2019,1. Biatrial enlargement, normal left ventricular size, mild concentric left ventricular hypertrophy, visually estimated ejection fraction 50%, there is abnormal septal motion. Grade 2 diastolic dysfunction seen with tissue Doppler evidence of raise left atrial pressure. 2. Mildly enlarged right ventricle with normal contractility. 3. Thickened and calcified aortic valve without aortic stenosis aortic insufficiency. 4. Moderate mitral and mild tricuspid regurgitation, calculated right ventricular systolic pressure is 48 mmHg consistent with moderate pulmonary hypertension. 5. No significant pericardial effusion noted. 4. Hyperlipidemia, on statin therapy 5. Diabetes mellitus, treated for about 25 years 6. Left bundle branch block, newly diagnosed, 2017 7. PAD A. LE runoff, 11/2019,ANGIOGRAPHIC RESULTS Right common iliac artery right external and right internal iliac arteries are normal. The right common femoral artery is normal The right profunda femoris artery is normal The right superficial femoral artery has mild [id number] atheromatous plaque Right popliteal artery has a focal mid vessel 50% [id number] stenosis with excellent flow distal to the lesion The right anterior tibialis artery is a large patent artery which supplies the dorsalis pedis artery and then there is abrupt loss of vascularity from the midfoot to the remaining phalanges The posterior tibialis artery is proximally occluded The peroneal artery is patent to the distal aspect of the calf. IMPRESSION Large widely patent right anterior tibialis artery which supplies the proximal portion of the right foot but does not have vascularity in the distal portion of the foot providing the digits. This is all consistent with small vessel disease not amenable to surgical or percutaneous revascularization PLAN 1. Proceed with toe amputation if clinically warranted 2. Consider TMA based on poor digit vascularity however this requires clinical expertise from treating surgeon 3. Risk factor modification 4. Recommend Xarelto 2.5 twice daily combined with aspirin 81 mg daily B. s/p right toe partial amputation, 11/2019 History of present illness: 69-year-ol
--- NOTE | 2020-07-24 13:25 | HMH.PTWOUND ---
Rehab Inpt Wound Evaluation Rehab IP Wound Evaluation Start: 07/24/20 11:12 Freq: ONCE Status: Active Protocol: Document 07/24/20 13:20 EDGAR (Rec: 07/24/20 13:24 EDGAR [id number]) Rehab PT Wound Assessment Patient Status Premedicated Prior to Dressing Change No Subjective Subjective Pt reports her daughter is changing dressing at home - pt reports she is following directions of Dr. Cloud Wound Left Lower Anterior Lateral [place]helan Wound Type Skin Tear Is This a Chronic Wound Yes Wound Length (cm) 3.0 Wound Width (cm) 2.0 Wound Bed Appearance Eschar Percentage of Eschar (Purple) (%) 100 Surrounding Tissue Appearance [place] Surrounding Tissue Temperature Warm Wound Drainage Description None Drainage Amount None Drainage Odor No Odor Dressing Status Open to Air Primary Dressing Absorbant Pad Comment polymem Wound Secondary Dressing Type Non-Adherent Gauze Pad Comment telfa, coflex, Wound Debridement Amount of Tissue None Removed Wound Debridement Result Patient Unable to Tolerate Dressing Change Date 07/24/20 Plan/Recommendation Comment nsg to continue w/ wound care per original dressing Eval Complexity Eval Charge Codes 36946 - Low Complexity G-codes PT Current Status Other PT/OT Status PT Current Status Modifier CN-At least 100% impaired, limited or restricted PT Goal Status Other PT/OT Status PT Goal Status Modifer CN-At least 100% impaired, limited or restricted PHYSICIAN CERTIFICATION: I certify the specified therapy services for Marley Marie are required, authorized, and reviewed every 30 days.
[2020-07-24 14:19] LABS: Adenovirus F 40/41, stool Not Detected (NotDetected); Astrovirus Not Detected (NotDetected); Campylobacter Not Detected (NotDetected); Clostridium Difficile A/B, PCR Not Detected (NotDetected); Cryptosporidium Not Detected (NotDetected); Cyclospora Cayetanesis Not Detected (NotDetected); Entamoeba histolytica Not Detected (NotDetected); Enteroaggregative E coli Not Detected (NotDetected); Enteropathogenic E coli Not Detected (NotDetected); Enterotoxigenic E coli Not Detected (NotDetected); Giardia lamblia Not Detected (NotDetected); Norovirus Not Detected (NotDetected); Plesimonas Shigalloides, PCR Not Detected (NotDetected); Rotavirus A Not Detected (NotDetected); Salmonella, PCR Not Detected (NotDetected); Sapovirus Not Detected (NotDetected); Shiga-like toxin E coli Not Detected (NotDetected); Shigella Enterovasive E coli Not Detected (NotDetected); Vibrio Cholerae Not Detected (NotDetected); Vibrio, PCR Not Detected (NotDetected); Yersinia Entercolitica, PCR Not Detected (NotDetected)
[2020-07-24 14:39] LABS: Troponin I 0.34 ng/ml (0.00-0.034)
[2020-07-24 17:29] LABS: POC Glucose,Bedside 110 (70-110)
--- NOTE | 2020-07-24 20:38 | PC.NURSE ---
HEART CATH TODAY, ON RA WITH NO SOA NOTED, VSS T/O SHIFT, NO PAIN REPORTED
[2020-07-24 20:45] LABS: POC Glucose,Bedside 132 (70-110)
[2020-07-24 21:01] LABS: POC Glucose,Bedside 125 (70-110)
[2020-07-25] VITALS: PULSE 60
[2020-07-25 04:00] VITALS: BP 139/64; PULSE 70; PULSE 71; RESP 16; TEMP 37.2; O2SAT 95
--- NOTE | 2020-07-25 04:23 | PC.NURSE ---
Pt is A&Ox4. Lung sounds remain clear t/o per auscultation. Active bowel sounds in all 4 quads.Pt has ambulated with standby assist to and from bathroom with satisfactory gait and steady balance. Rt femoral cath site remains CDI with no hematoma noted. Daughter remains at bedside. VSS. No other acute changes or complaints at this time. WIll continue to monitor.
[2020-07-25 05:40] VITALS: BMI 31.6
[2020-07-25 06:29] LABS: POC Glucose,Bedside 114 (70-110)
[2020-07-25 07:25] LABS: Chloride 109 mmol/L (98-107); Potassium 3.9 mmoL/L (3.5-5.1); Sodium 140 mmol/L (136-145)
[2020-07-25 07:28] LABS: Alanine Aminotransferase 14 U/L (12-78); Albumin Level 3.4 g/dl (3.5-5.0); Albumin/Globulin Ratio 1.4 (1.1-1.8); Alkaline Phosphatase 78 U/L (38-126); Anion Gap 8.9 mEq/L (5-15); Aspartate Amino Transferase 46 U/L (14-36); Bilirubin,Total 0.8 mg/dl (0.2-1.3); Blood Urea Nitrogen 25 mg/dl (7-17); Calcium 8.9 mg/dl (8.4-10.2); Carbon Dioxide 26 mmol/L (22.0-30.0); Creatinine Clearance Estimated 45 mL/min (50-200); Estimated Glomerular Filt Rate 37 ml/min (>60); GFR (African American) 45 ML/MIN (>60); Globulin 2.5 g/dL (1.3-3.2); Glucose 111 mg/dl (74-100); Total Protein,Serum 5.9 g/dl (6.3-8.2)
[2020-07-25 07:35] LABS: Basophils # 0.1 K/mm3 (0-0.2); Basophils % 0.6 % (0.1-2.0); Eosinophils # 0.4 K/mm3 (0.0-0.4); Eosinophils % 4.7 % (0.1-12.0); Hematocrit 32.8 % (37.0-47.0); Lymphocytes # 1.5 K/mm3 (0.7-4.5); Lymphocytes % 18.6 % (10-50); Mean Corpuscular HGB Conc 34.4 g/dL (31.8-35.4); Mean Corpuscular Hemoglobin 33.7 pg (27.0-31.2); Mean Platelet Volume 9.6 fl (7.4-10.4); Monocytes # 0.8 K/mm3 (0.1-1.0); Monocytes % 9.7 % (1.7-9.3); Neutrophils # 5.3 K/mm3 (1.8-7.8); Neutrophils % 66.3 % (37.0-80.0); Platelet Count 173 K/mm3 (142-424); Red Blood Count 3.34 M/mm3 (4.20-5.40); Red Cell Distribution Width 14.7 % (11.5-17.5); White Blood Count 7.9 K/mm3 (4.8-10.8)
--- NOTE | 2020-07-25 07:35 | HMH.DCSUM ---
General - General Admission date:: 07/24/20 Discharge date: 07/25/20 HPI HPI: 69-year-old female who presented to the ER yesterday due to worsening fatigue, abdominal pain, diarrhea for the past few days. States she just felt awful. Had no energy to do anything. Denies fever, cough, congestion, shortness of breath. Overall just felt ill and knew she needed to come to the ER . Assessment in the ER showed chronic kidney disease with creatinine better than baseline. Also showed sinus bradycardia on vitals, significantly elevated ESR, concern for cellulitis of left lower extremity, and continued diarrhea. Unable to tolerate p.o. therapy. Admitted to medicine for further management. On assessment this morning, she states that she had had loose watery yellow diarrhea for the past 3 to 4 days. Has been extremely fatigued and experiencing chills. Denies pat fever but has not wanted to do more than just sit in her chair to go to the bathroom. Reports having recently finished a course of Levaquin for concern for left lower extremity stasis ulcer with cellulitis. Proceeded to develop diarrhea after finishing her antibiotics. Pleasant on interview this morning, family at bedside and updated of plan. Hospital Course Hospital Course: Patient was admitted, found to have better renal function than baseline, found to have no evidence of fever or significant worsening of cellulitis. Did have minimally elevated sed rate. Comparison of wound pictures look like there was some improvement. Cardiology was consulted because of her chest pain issues. They actually proceeded to heart cath because of minimally elevated troponins which revealed no evidence of cardiac disease and they recommended ongoing medical management of her diastolic heart failure. This morning she felt much better. Serology for C. difficile has been sent but is pending. Patient was eating well, diarrhea had slowed down somewhat and she wished to be sent home. We will send her home on cefdinir for the foot wound, vancomycin orally, probiotic, she has follow-up with podiatry next week and I will see her in the next couple of weeks. Objective Vital signs: Temp Pulse Resp BP Pulse Ox 98.9 F 71 16 139/64 95 07/25/20 04:00 07/25/20 04:00 07/25/20 04:00 07/25/20 04:00 07/25/20 04:00 no acute distress - *Routine HEENT Exam Head: Present: normocephalic Eye: Present: EOMI, PERRL ENT: Present: mucous membranes moist - *Routine Neck Exam Present: supple - *Routine Respiratory Exam Present: CTA bilaterally - *Routine Cardiovascular Exam Present: RRR, murmur - *Routine Abdominal Exam Present: soft, normoactive bowel sounds. Absent: tenderness - *Routine Extremities Exam Present: edema. Absent: cyanosis, clubbing Comments: Both feet wrapped in compression devices and bandages. Bandages are clean and dry and intact. Pictures of foot wound reviewed - *Routine Skin Exam Present: warm. Absent: rash - Detailed Eye Exam Eyelids: Bilateral normal inspection Results Labs on day of discharge: Labs from last 24 hours 07/25/20 07/24/20 07/24/20 06:01 20:51 17:23 Carbon Dioxide Anion Gap BUN Creatinine Estimated Creat Clear Estimated GFR Est GFR ( Amer) Glucose POC Glucose 114 H 125 H 132 H Calcium Troponin I NT-Pro-B Natriuret Pep 07/24/20 07/24/20 07/24/20 12:03 06:45 06:45 Carbon Dioxide 28 Anion Gap 10.0 BUN 29 H Creatinine 1.30 H Estimated Creat Clear 48 Estimated GFR 40 L Est GFR ( Amer) 49 L Glucose 110 H D POC Glucose 110 Calcium 9.6 Troponin I NT-Pro-B Natriuret Pep 4140 H 07/24/20 06:42 Carbon Dioxide Anion Gap BUN Creatinine Estimated Creat Clear Estimated GFR Est GFR ( Amer) Glucose POC Glucose Calcium Troponin I 0.34 H NT-Pro-B Natriuret Pep Preliminary micro results
[2020-07-25 07:50] LABS: Hemoglobin 11.3 g/dL (12.2-16.2)
[2020-07-25 08:00] VITALS: BP 138/52; PULSE 80; RESP 20; TEMP 37.3; O2SAT 99
--- NOTE | 2020-07-25 08:15 | HMH.PNCARD ---
Subjective Date: 07/25/20 Time: 08:05 Principal diagnosis: syncope Interval history: Patient is status post left cardiac catheterization yesterday. She required no percutaneous intervention. This morning she denies any chest pain or pressure. She denies any shortness of breath or edema. She denies any fever, chills, nausea, vomiting, PND or orthopnea. The patient states that she is feeling very well and she is ready to go home. Exam Vital signs and Labs for Last 24 Hours: Temp Pulse Resp BP Pulse Ox 98.9 F 71 16 139/64 95 07/25/20 04:00 07/25/20 04:00 07/25/20 04:00 07/25/20 04:00 07/25/20 04:00 Laboratory Results - last 24 hr 07/24/20 06:42: Troponin I 0.34 H 07/24/20 06:45: NT-Pro-B Natriuret Pep 4140 H 07/24/20 12:03: POC Glucose 110 07/24/20 17:23: POC Glucose 132 H 07/24/20 20:51: POC Glucose 125 H 07/25/20 06:01: POC Glucose 114 H 07/25/20 06:35: WBC 7.9, RBC 3.34 L, Hgb 11.3 L D, Hct 32.8 L, MCV 98.0, MCH 33.7 H, MCHC 34.4, RDW 14.7, Plt Count 173, MPV 9.6, Neut % (Auto) 66.3, Lymph % (Auto) 18.6, Brantley % (Auto) 9.7 H, Eos % (Auto) 4.7, Baso % (Auto) 0.6, Neut # (Auto) 5.3, Lymph # (Auto) 1.5, Brantley # (Auto) 0.8, Eos # (Auto) 0.4, Baso # (Auto) 0.1 07/25/20 06:35: Sodium 140, Potassium 3.9, Chloride 109 H, Carbon Dioxide 26, Anion Gap 8.9, BUN 25 H, Creatinine 1.40 H, Estimated Creat Clear 45, Estimated GFR 37 L, Est GFR ( Amer) 45 L, Glucose 111 H, Calcium 8.9, Magnesium 2.0, Total Bilirubin 0.8, AST 46 H D, ALT 14, Alkaline Phosphatase 78, Total Protein 5.9 L, Albumin 3.4 L D, Globulin 2.5, Albumin/Globulin Ratio 1.4 I & O for Last 24 hours: Intake & Output 07/22/20 07/23/20 07/24/20 07/25/20 23:59 23:59 23:59 23:59 Intake Total 480 / 720 240 / 240 Output Total 350 / 350 Balance 130 / 370 240 / 240 Weight 173 lb 167 lb 8.821 oz 172 lb Microbiology Reports for the Last 24 Hours: Microbiology 07/23/20 22:05 Ankle,Left Gram Stain - Final 07/23/20 22:05 Ankle,Left Wound Culture - Preliminary NO GROWTH AFTER 24 HOURS 07/23/20 19:05 Urine,Clean Catch Urine Culture - Preliminary NO GROWTH AFTER 24 HOURS Narrative: Telemetry strip shows sinus rhythm with a rate in the 70s. - Constitutional no acute distress, obese - *Routine HEENT Exam Head: Present: normocephalic, atraumatic Eye: Present: EOMI, PERRL ENT: Present: mucous membranes moist - *Routine Neck Exam Present: supple, full ROM, normal carotid upstroke. Absent: JVD, carotid bruit, lymphadenopathy - *Routine Respiratory Exam Present: CTA bilaterally - *Routine Cardiovascular Exam Present: RRR, Normal S1, Normal S2. Absent: murmur - *Routine Abdominal Exam Present: soft, normoactive bowel sounds. Absent: tenderness, distended - *Routine Extremities Exam Present: full ROM, pulses intact, normal capillary refill. Absent: cyanosis, clubbing, edema - *Routine Skin Exam Present: intact, warm. Absent: erythema, rash - *Routine Neurological Exam Present: alert, oriented X3, CN II-XII intact. Absent: sensory deficit, motor deficit Progress Note: A&P (1) CAD (coronary artery disease) Status: Chronic (2) Diarrhea Status: Acute (3) Arterial leg ulcer Status: Chronic (4) Bradycardia Status: Chronic (5) Elevated erythrocyte sedimentation rate Status: Acute (6) Obesity (BMI 30.0-34.9) Status: Chronic (7) Stage 4 chronic kidney disease Status: Chronic (8) Type 2 diabetes mellitus with diabetic neuropathy, with long-term current use of insulin Status: Chronic (9) CHF (congestive heart failure) Status: Chronic (10) Hypertension Status: Chronic Assessment and Plan for All Diagnoses:: Plan: 1. Coronary artery disease is stable. She underwent left cardiac catheterization yesterday and had no percutaneous intervention. 2. Her blood pressure is well controlled. 3. Her LDL goal is less than 5
== END 2020-07-25 09:30 | disposition home or self-care (01) ==
LOC: ER 20:01 → 2ND 22:10
PROVIDERS: Emergency Medicine; Internal Medicine; Internal Medicine Adolescent Medicine; Physician Assistant; Admitting Provider Family Medicine; Emergency Provider Emergency Medicine; PCP Internal Medicine Adolescent Medicine; Visit Provider Internal Medicine Adolescent Medicine
DX: I25.10 Atherosclerotic heart disease of native coronary artery without angina pectoris (principal); E11.621 Type 2 diabetes mellitus with foot ulcer; E11.40 Type 2 diabetes mellitus with diabetic neuropathy, unspecified; E11.22 Type 2 diabetes mellitus with diabetic chronic kidney disease; N18.4 Chronic kidney disease, stage 4 (severe); I50.32 Chronic diastolic (congestive) heart failure; I13.0 Hypertensive heart and chronic kidney disease with heart failure and stage 1 through stage 4 chronic kidney disease, or unspecified chronic kidney disease; Z79.4 Long term (current) use of insulin; L97.519 Non-pressure chronic ulcer of other part of right foot with unspecified severity; I70.238 Atherosclerosis of native arteries of right leg with ulceration of other part of lower leg; Z95.1 Presence of aortocoronary bypass graft; Z95.5 Presence of coronary angioplasty implant and graft; Z79.82 Long term (current) use of aspirin; E86.0 Dehydration; I25.2 Old myocardial infarction; N39.0 Urinary tract infection, site not specified; R19.7 Diarrhea, unspecified; I44.7 Left bundle-branch block, unspecified
CPT/HCPCS: 36415; 71045; 80048; 80053; 81001; 82962; 83605; 83735; 83880; 84145; 84436; 84443; 84484; 85025; 85651; 86140; 86328; 87040; 87070; 87077; 87086; 87186; 87205; 87506; 87581; 87633; 87798; 93005; 93306; 93459; 96365; 99152; 99153; 99284; C1725; C1760; C1769; C1894; G0378; J1644; J3370; Q9967

== ENCOUNTER → 2020-10-29 16:00 | Outpatient (CLI) | payer MEDICARE, MEDICAID, SELFPAY ==
--- NOTE | 2020-10-29 16:32 | XR_ITS ---
PROCEDURE: XR CALCANEUS RT MIN 2V CLINICAL INDICATION: foot pain COMPARISON: No exams were available for comparison FINDINGS: No fracture or dislocation. No lytic or blastic change. There is normal mineralization. Generalized osteopenia with vascular calcifications Other findings:None. IMPRESSION: No acute findings. Dictated by: Federico Justice MD 10/29/2020 17:28 Federico Justice MD in [place] 10/29/2020 17:28
--- NOTE | 2020-10-29 16:32 | XR_ITS ---
PROCEDURE: XR FOOT WT BEARING RT 3V CLINICAL INDICATION: foot pain COMPARISON: CR [id number] XR foot wt bearing RT 3V from 11/22/2018 CR XR FOOT RT MIN 3V from 11/25/2019 CR XR FOOT RT MIN 3V from 01/11/2020 CR XR FOOT WT BEARING RT 3V from 02/16/2020 FINDINGS: There has been amputation at the 1st metatarsophalangeal joint. There is diffuse osteopenia and vascular calcification. There is fracture involving the head the 2nd metatarsal with mild impaction of the fracture fragments with lucency at that region. This could be related to avascular necrosis. There is an old fracture of the proximal phalanx of the 5th digit IMPRESSION: Fracture involves the head of the 2nd metatarsal with mild impaction and may be related to fragmentation from avascular necrosis versus posttraumatic change. Has the patient had interval trauma? Generalized osteopenia. Prior amputation at the 1st metatarsophalangeal junction Dictated by: Federico Justice MD 10/29/2020 17:25 Federico Justice MD in [place] 10/29/2020 17:25
[2020-10-29 16:44] LABS: Basophils % 0.6 % (0.1-2.0); Eosinophils # 0.7 K/mm3 (0.0-0.4); Eosinophils % 10.1 % (0.1-12.0); Hematocrit 29.7 % (37.0-47.0); Hemoglobin 9.7 g/dL (12.2-16.2); Lymphocytes # 1.3 K/mm3 (0.7-4.5); Lymphocytes % 20.7 % (10-50); Mean Corpuscular HGB Conc 32.8 g/dL (31.8-35.4); Mean Corpuscular Hemoglobin 31.5 pg (27.0-31.2); Mean Corpuscular Volume 96.2 fl (81-99); Mean Platelet Volume 7.8 fl (7.4-10.4); Monocytes # 0.5 K/mm3 (0.1-1.0); Monocytes % 7.5 % (1.7-9.3); Neutrophils # 3.9 K/mm3 (1.8-7.8); Neutrophils % 61.1 % (37.0-80.0); Platelet Count 239 K/mm3 (142-424); Red Blood Count 3.09 M/mm3 (4.20-5.40); Red Cell Distribution Width 14.3 % (11.5-17.5); White Blood Count 6.4 K/mm3 (4.8-10.8)
[2020-10-29 17:11] LABS: Erythrocyte Sedimentation Rate 117 mm/hr (0-30)
[2020-10-29 18:27] LABS: Chloride 102 mmol/L (98-107); Sodium 139 mmol/L (136-145)
[2020-10-29 18:30] LABS: Alanine Aminotransferase 11 U/L (12-78); Albumin Level 3.8 g/dl (3.5-5.0); Albumin/Globulin Ratio 1.5 (1.1-1.8); Alkaline Phosphatase 100 U/L (38-126); Aspartate Amino Transferase 25 U/L (14-36); Bilirubin,Total 0.5 mg/dl (0.2-1.3); Blood Urea Nitrogen 45 mg/dl (7-17); Calcium 9.2 mg/dl (8.4-10.2); Carbon Dioxide 30 mmol/L (22.0-30.0); Estimated Glomerular Filt Rate 26 ml/min (>60); GFR (African American) 31 ML/MIN (>60); Globulin 2.5 g/dL (1.3-3.2); Glucose 97 mg/dl (74-100); Total Protein,Serum 6.3 g/dl (6.3-8.2)
[2020-10-29 18:40] LABS: C-Reactive Protein 3.6 mg/L (0-4)
[2020-10-29 19:31] LABS: Hemoglobin A1C 5.9 % (4.0-6.0)
== END ==
PROVIDERS: PCP Internal Medicine Adolescent Medicine; Visit Provider Podiatrist
DX: Z51.89 Encounter for other specified aftercare (principal); E11.621 Type 2 diabetes mellitus with foot ulcer; L97.519 Non-pressure chronic ulcer of other part of right foot with unspecified severity; Z79.4 Long term (current) use of insulin
CPT/HCPCS: 36415; 73630; 73650; 80053; 83036; 85025; 85651; 86140; 87070; 87077; 87186; 87205

== ENCOUNTER → 2020-12-11 17:48 | Outpatient (CLI) | payer MEDICARE, MEDICAID, SELFPAY | PROVIDERS: Visit Provider Nurse Practitioner | DX: E11.621 Type 2 diabetes mellitus with foot ulcer (principal); L97.519 Non-pressure chronic ulcer of other part of right foot with unspecified severity | CPT/HCPCS: 87070; 87077; 87186; 87205 ==

== ENCOUNTER → 2020-12-20 13:35 | Outpatient (CLI) | payer MEDICARE, SELFPAY ==
[2020-12-20 13:54] LABS: Basophils % 0.4 % (0.1-2.0); Eosinophils # 0.3 K/mm3 (0.0-0.4); Eosinophils % 4.5 % (0.1-12.0); Hematocrit 29.1 % (37.0-47.0); Hemoglobin 9.5 g/dL (12.2-16.2); Lymphocytes # 1.2 K/mm3 (0.7-4.5); Lymphocytes % 18.4 % (10-50); Mean Corpuscular HGB Conc 32.7 g/dL (31.8-35.4); Mean Corpuscular Hemoglobin 31.3 pg (27.0-31.2); Mean Corpuscular Volume 95.8 fl (81-99); Mean Platelet Volume 8.4 fl (7.4-10.4); Monocytes # 0.5 K/mm3 (0.1-1.0); Monocytes % 6.8 % (1.7-9.3); Neutrophils # 4.7 K/mm3 (1.8-7.8); Neutrophils % 69.8 % (37.0-80.0); Platelet Count 180 K/mm3 (142-424); Red Blood Count 3.04 M/mm3 (4.20-5.40); White Blood Count 6.7 K/mm3 (4.8-10.8)
--- NOTE | 2020-12-20 14:00 | MR_ITS ---
PROCEDURE: MR FOOT RT WO CON CLINICAL INDICATION: non healing ulcer right heel, possible FB, OM, evaluate for osteomyelitis Ulcer x several months on medial aspect of foot. COMPARISON: MR MR FOOT RT WO CON from 12/05/2019 CR XR CALCANEUS RT MIN 2V from 10/29/2020 CR XR FOOT WT BEARING RT 3V from 10/29/2020 TECHNIQUE: Routine multiplanar multi echo sequences are performed without gadolinium enhancement. FINDINGS: There are scattered small T2 hyperintensities involving the generalized bony structures and may be related to focal areas of osteopenia. These were not readily apparent on 12/05/2019. There is pes planus. There has been amputation the great toe with overlying soft tissue swelling at this region. No evidence of osteomyelitis at this area. Hammertoe deformity involves the 2nd and 3rd toe. Bone marrow edema is present involving the mid and distal aspect of the 2nd metatarsal with diffuse decreased T1 and increased T2 signal. There is fragmentation at the head of the 2nd metatarsal better demonstrated on the recent plain film. This may be due to avascular necrosis/Freiberg infarction or posttraumatic changes. No abnormal signal intensity in the calcaneus that would indicate osteomyelitis. There is mild diffuse soft tissue swelling of the heel pad. There is a small focus of decreased T1 and increased T2 signal centrally with increased T2 signal peripherally at this region on the STIR images. This is consistent with a foreign body. Review of the recent plain films show no obvious metallic foreign body. The metallic foreign body may be too small to visualize on the plain film or could be a tiny piece of glass. Consider CT for further evaluation and to determine the exact location. There is diffuse subcutaneous soft tissue swelling of the lower leg ankle and foot. No obvious ligamentous or tendon abnormalities IMPRESSION: 1. Susceptibility artifact along the medial aspect of the heel pad. This is 4 cm anterior to the most posterior aspect of the calcaneus 1.5 cm 2 cm distal to the small calcaneal spur and along the skin surface/subcutaneous region. This is consistent with a foreign body and may be better localized with CT. 2. No evidence of abscess or osteomyelitis. 3. Fragmentation of the 2nd metatarsal head with increased T2 signal in the mid aspect and distal aspect of the 2nd metatarsal which may represent Freiberg's infarction or posttraumatic change Dictated by: Federico Justice MD 12/22/2020 10:15 Federico Justice MD in [facility] 12/22/2020 10:15
[2020-12-20 14:38] LABS: Chloride 100 mmol/L (98-107)
[2020-12-20 14:39] LABS: Potassium 3.9 mmoL/L (3.5-5.1); Sodium 137 mmol/L (136-145)
[2020-12-20 14:41] LABS: Alanine Aminotransferase 12 U/L (12-78); Albumin Level 3.9 g/dl (3.5-5.0); Albumin/Globulin Ratio 1.6 (1.1-1.8); Alkaline Phosphatase 95 U/L (38-126); Anion Gap 13.9 mEq/L (5-15); Aspartate Amino Transferase 32 U/L (14-36); Bilirubin,Total 0.4 mg/dl (0.2-1.3); Blood Urea Nitrogen 53 mg/dl (7-17); Carbon Dioxide 27 mmol/L (22.0-30.0); Estimated Glomerular Filt Rate 18 ml/min (>60); GFR (African American) 22 ML/MIN (>60); Globulin 2.5 g/dL (1.3-3.2); Total Protein,Serum 6.4 g/dl (6.3-8.2)
[2020-12-20 14:42] LABS: Calcium 9.4 mg/dl (8.4-10.2); Glucose 122 mg/dl (74-100)
[2020-12-20 14:47] LABS: C-Reactive Protein 2.2 mg/L (0-4)
[2020-12-20 15:12] LABS: Erythrocyte Sedimentation Rate > 140 mm/hr (0-30)
== END ==
PROVIDERS: Visit Provider Podiatrist
DX: R63.0 Anorexia (principal); E11.621 Type 2 diabetes mellitus with foot ulcer; L03.115 Cellulitis of right lower limb; L97.519 Non-pressure chronic ulcer of other part of right foot with unspecified severity; Z51.89 Encounter for other specified aftercare; Z79.4 Long term (current) use of insulin
CPT/HCPCS: 36415; 73718; 80053; 85025; 85651; 86140

== ENCOUNTER → 2021-01-01 10:46 | Outpatient (CLI) | payer MEDICARE, SELFPAY ==
--- NOTE | 2021-01-01 10:50 | XR_ITS ---
PROCEDURE: XR DEXA AXIAL SKELETON CLINICAL HISTORY: POST-MENOPAUSAL COMPARISON: CR,DX BONE3 BONE DENSITOMETRY(HIP:LT SPINE from 08/21/2017 FINDINGS: The right hip BMD is 0.637 with a T-score of -1.9. The left hip BMD is 0.613 with a T-score of -2.1. The lumbar spine BMD is 1.050 with a T-score of 0.0. Previously the lowest bone density within the left femoral neck with a T-score of -1.6 IMPRESSION: This patient is considered osteopenic according to the World Health Organization criteria. Bone density is between 10 and 25 percent below young normal. Fracture risk is moderate. Treatment is advised. Based on these results a follow-up exam is recommended in 2 year. Dictated by: Federico Justice MD 01/02/2021 04:53 Federico Justice MD in [facility] 01/02/2021 04:53
[2021-01-01 18:08] LABS: Basophils % 0.3 % (0.1-2.0); Eosinophils # 0.4 K/mm3 (0.0-0.4); Eosinophils % 6.8 % (0.1-12.0); Hematocrit 27.8 % (37.0-47.0); Hemoglobin 9.6 g/dL (12.2-16.2); Lymphocytes # 1.5 K/mm3 (0.7-4.5); Lymphocytes % 25.6 % (10-50); Mean Corpuscular HGB Conc 34.7 g/dL (31.8-35.4); Mean Corpuscular Volume 92.2 fl (81-99); Mean Platelet Volume 8.1 fl (7.4-10.4); Monocytes # 0.6 K/mm3 (0.1-1.0); Monocytes % 9.7 % (1.7-9.3); Neutrophils # 3.3 K/mm3 (1.8-7.8); Neutrophils % 57.6 % (37.0-80.0); Platelet Count 180 K/mm3 (142-424); Red Blood Count 3.01 M/mm3 (4.20-5.40); Red Cell Distribution Width 13.5 % (11.5-17.5); White Blood Count 5.8 K/mm3 (4.8-10.8)
[2021-01-01 18:54] LABS: Albumin Level 3.5 g/dl (3.5-5.0); Anion Gap 9.1 mEq/L (5-15); Blood Urea Nitrogen 42 mg/dl (7-17); Calcium 9.3 mg/dl (8.4-10.2); Carbon Dioxide 32 mmol/L (22.0-30.0); Chloride 99 mmol/L (98-107); Estimated Glomerular Filt Rate 30 ml/min (>60); GFR (African American) 36 ML/MIN (>60); Glucose 120 mg/dl (74-100); Phosphorous 4.5 mg/dl (2.5-4.5); Potassium 4.1 mmoL/L (3.5-5.1); Sodium 136 mmol/L (136-145)
[2021-01-01 19:05] LABS: Intact Parathyroid Hormone 63.6 pg/mL (7.5-53.5)
[2021-01-05 11:33] LABS: Tandem-R Ostase 13.2 ug/L (.)
== END ==
PROVIDERS: PCP Internal Medicine Adolescent Medicine; Visit Provider Internal Medicine Nephrology
DX: N18.4 Chronic kidney disease, stage 4 (severe) (principal); Z78.0 Asymptomatic menopausal state
CPT/HCPCS: 36415; 77080; 80069; 83970; 84080; 85025

== ENCOUNTER → 2021-01-02 07:42 | Outpatient (CLI) | payer MEDICARE, SELFPAY ==
--- NOTE | 2021-01-02 07:45 | CT_ITS ---
PROCEDURE: CT FOOT RT WO CON CLINICAL HISTORY: FOREIGN BODY RIGHT HEEL Poss fb rt heel bottom of foot Bandaged at this time Open would xwks COMPARISON: CR [id number] XR foot wt bearing RT 3V from 11/22/2018 CR XR FOOT RT MIN 3V from 01/11/2020 TECHNIQUE: Axial images obtained with sagittal and coronal reformats. All CT scans at the facility use one or more dose reduction, viz: automated exposure control, ma/kV adjustment per patient size (including targeted exams where dose is matched to indication, i.e. head), or iterative reconstruction technique. FINDINGS: There is diffuse osteopenia. Diffuse soft tissue swelling is present in the lower leg ankle foot. Generalized mild osteoarthritic changes are present in the tarsal bones and tarsal metatarsal junction. There is dysplastic changes of the head of the 2nd metatarsal consistent with pre jane infarction the with some remodeling. Subchondral cystic changes are present at this area. There has been amputation at the 1st metatarsophalangeal joint. There is diffuse vascular calcification of medium size and small vessels. There is thickening of the heel pad. A bandage is present along the heel pad. Deep to this bandage in the area of soft tissue thickening there are numerous small somewhat irregular hyperdensities. This is in the region of the susceptibility artifact on the MRI. This could represent soft tissue calcification or unusual type of foreign bodies. Some of these could be vascular calcifications. No obvious metallic foreign body is evident. Has the patient had and body beads in this region? No obvious localized fluid collection/abscess evident. There is some thickening of the plantar fascia at this area. No bony erosive process evident. IMPRESSION: 1. Diffuse subcutaneous soft tissue swelling of the lower leg ankle and foot. 2. Numerous small calcific densities along the heel pad deep to the patient's wound. Soft tissue calcification, atypical foreign bodies, along with unusual vascular calcifications is a consideration. Has the patient had antibiotic beads at this area? These densities were not present on a older exam 01/11/2020. No obvious abscess. 3. Soft tissue swelling at and deep to the heel pad extending to the plantar fascia with mild thickening of the posterior aspect of the plantar fascia. 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 Diffuse vascular calcification Dictated by: Federico Justice MD 01/03/2021 11:52 Federico Justice MD in [facility] 01/03/2021 11:52
== END ==
PROVIDERS: PCP Internal Medicine Adolescent Medicine; Visit Provider Podiatrist
DX: E11.621 Type 2 diabetes mellitus with foot ulcer (principal); L03.115 Cellulitis of right lower limb; L89.90 Pressure ulcer of unspecified site, unspecified stage; L97.519 Non-pressure chronic ulcer of other part of right foot with unspecified severity; S90.851A Superficial foreign body, right foot, initial encounter; Z79.4 Long term (current) use of insulin
CPT/HCPCS: 73700

== ENCOUNTER → 2021-01-21 13:03 | Outpatient (CLI) | payer MEDICARE, SELFPAY ==
[2021-01-21 13:26] LABS: Basophils % 0.4 % (0.1-2.0); Eosinophils # 0.3 K/mm3 (0.0-0.4); Eosinophils % 3.9 % (0.1-12.0); Hematocrit 28.3 % (37.0-47.0); Hemoglobin 9.5 g/dL (12.2-16.2); Lymphocytes # 1.4 K/mm3 (0.7-4.5); Lymphocytes % 20.7 % (10-50); Mean Corpuscular HGB Conc 33.5 g/dL (31.8-35.4); Mean Corpuscular Hemoglobin 31.9 pg (27.0-31.2); Mean Corpuscular Volume 95.2 fl (81-99); Mean Platelet Volume 9.4 fl (7.4-10.4); Monocytes # 0.6 K/mm3 (0.1-1.0); Monocytes % 9.2 % (1.7-9.3); Neutrophils # 4.6 K/mm3 (1.8-7.8); Neutrophils % 65.8 % (37.0-80.0); Platelet Count 169 K/mm3 (142-424); Red Blood Count 2.98 M/mm3 (4.20-5.40); Red Cell Distribution Width 13.3 % (11.5-17.5)
[2021-01-21 13:53] LABS: Blood Urea Nitrogen 45 mg/dl (7-17); Calcium 8.4 mg/dl (8.4-10.2); Carbon Dioxide 29 mmol/L (22.0-30.0); Chloride 103 mmol/L (98-107); Estimated Glomerular Filt Rate 23 ml/min (>60); GFR (African American) 28 ML/MIN (>60); Glucose 117 mg/dl (74-100); Potassium 4.2 mmoL/L (3.5-5.1); Sodium 136 mmol/L (136-145)
[2021-01-21 13:55] LABS: Erythrocyte Sedimentation Rate 127 mm/hr (0-30)
[2021-01-21 13:59] LABS: C-Reactive Protein 1.1 mg/L (0-4)
== END ==
PROVIDERS: Visit Provider Podiatrist
DX: Z01.812 Encounter for preprocedural laboratory examination (principal); Z20.822 Contact with and (suspected) exposure to COVID-19; E11.621 Type 2 diabetes mellitus with foot ulcer; L97.519 Non-pressure chronic ulcer of other part of right foot with unspecified severity; Z79.4 Long term (current) use of insulin
CPT/HCPCS: 36415; 80048; 85025; 85651; 86140; U0003

== ENCOUNTER 2021-01-23 09:55 | Day surgery (SDC) | payer MEDICARE, SELFPAY ==
[2021-01-17 13:32] VITALS: BMI 31.6
[2021-01-23 10:20] LABS: POC Glucose,Bedside 82 (70-110)
[2021-01-23 10:21] VITALS: BP 159/55; PULSE 61; RESP 18; TEMP 36.4; O2SAT 97
[2021-01-23 12:07] VITALS: BP 139/65; PULSE 51; RESP 18; TEMP 36.4; O2SAT 95
--- NOTE | 2021-01-23 12:19 | HMH.OPNOTE ---
Date of procedure: 01/23/21 Pre-op Diagnosis:: 1. Right plantar diabetic foot ulcer 2. Right heel ulcer 3. Right foreign body 4. History of diabetic foot infection Post-op Diagnosis:: Same Procedure performed:: 1. Right foot irrigation and plantar wound debridement 2. Right ulcer excision 3. Right delayed primary closure 4. Right application of wound graft (PuraPly) Surgeon:: Lani Cloud DPM WINDOW DISPLAY DESIGNER:: Other Anesthesia: local (20cc 0.5% marcaine plain) Estimated blood loss (mL): 10 Clinical Note:: Patient is a 70-year-old diabetic female who presents with recurrent right plantar heel ulceration. Recent imaging shows no evidence of osteomyelitis but possible vascular calcifications first foreign body. We discussed ulcer debridement with washout and delayed primary closure with graft application. We discussed conservative versus surgical treatment options. Conservative treatment options include local wound care, oral and IV antibiotics, change in shoe wear, taping/padding, and off-loading. Patient understands that there is a chance that the foot may change shape after surgery. Patient also understands that they could have wound healing complications including delayed healing and infection. We discussed that if the wound does not heal, it is possible that they may need a more proximal amputation and could result in further loss of digits, loss of partial foot or loss of leg. We discussed the risks and benefits in great detail. Other surgical risks include: prolonged pain and swelling, further infection requiring oral or IV antibiotics, delay in healing of soft tissue or bone, nerve or blood vessel damage, CRPS/RSD, DVT, anesthesia complications, and even . All questions answered. Patient verbalized understanding. Consent obtained. Operative findings:: Right plantar foot ulceration. The heel ulcer had some periwound callus and maceration noted. The ulcer predebridement was approximately 0.5x0.3x0.3cm. No purulence malodor or drainage noted. There was a ball of scar tissue as well as some fibrotic tissue noted within the wound. It was excised. Post debridement and post ulcer excision with 15 blade and forceps sharply excisionally full-thickness through skin, subcutaneous tissue into/including the deep fascia the wound base was 100% granular with bleeding noted. It did not extend to the level of the bone. Post debridement the wound measured 0.6 x 0.5 x 0.5 cm. Operative note:: On this date and time patient was deemed an appropriate surgical candidate. With informed consent signed, the patient was taken to the local operating theater room. The patient was positioned supine. No anesthesia was induced. No tourniquet used. Pre-op right foot block given with 20 cc 0.5% marcaine plain. Right plantar foot wound debridement, ulcer excision: The right extremity was prepped and draped in normal sterile fashion. Right plantar foot ulceration. The heel ulcer had some periwound callus and maceration noted. The ulcer predebridement was approximately 0.5x0.3x0.3cm. No purulence malodor or drainage noted. Full thickness wound debridement performed. There was a ball of scar tissue as well as some fibrotic tissue noted within the wound. It was excised. Post debridement and post ulcer excision with 15 blade and forceps sharply excisionally full-thickness through skin, subcutaneous tissue into/including the deep fascia the wound base was 100% granular with bleeding noted. It did not extend to the level of the bone. Post debridement the wound measured 0.6 x 0.5 x 0.5 cm. Right foot delayed primary closure: The ulcer was flushed with bacitracin irrigation. There was no purulence or obvious signs of infection noted. Next 2-0 Vicryl was used to reapproximate deep tissue and subq tissue. 2-0 Prolene was used to close skin in an interrupted simple suture fashion at the distal and proximal aspect of the wound. After closure, there was a small area centrally left open, measur
[2021-01-23 12:29] VITALS: BP 142/61; PULSE 51; RESP 16; O2SAT 98
== END 2021-01-23 12:29 | disposition home or self-care (01) ==
LOC: OUTP 09:57
PROVIDERS: PCP Internal Medicine Adolescent Medicine; Visit Provider Podiatrist
PROC: (CPT 11042; principal; 2021-01-23 10:30)
DX: E11.621 Type 2 diabetes mellitus with foot ulcer (principal); Z79.4 Long term (current) use of insulin; I25.10 Atherosclerotic heart disease of native coronary artery without angina pectoris; I10 Essential (primary) hypertension; I25.2 Old myocardial infarction; L97.511 Non-pressure chronic ulcer of other part of right foot limited to breakdown of skin; E11.51 Type 2 diabetes mellitus with diabetic peripheral angiopathy without gangrene
CPT/HCPCS: 11042; 15275; 82962; Q4196

== ENCOUNTER 2021-02-23 17:41 | Emergency (ER) | payer MEDICARE, SELFPAY ==
[2021-02-23 17:42] VITALS: BP 189/75; PULSE 81; RESP 18; TEMP 36.6; O2SAT 98; BMI 31.6
--- NOTE | 2021-02-23 17:43 | XR_ITS ---
PROCEDURE INFORMATION: Exam: XR Chest Exam date and time: 02/23/2021 5:43 PM Age: 70 years old Clinical indication: Pain; Chest pressure; Additional info: Cp TECHNIQUE: Imaging protocol: XR of the chest. Views: 1 view. COMPARISON: CR XR CHEST PORTABLE 07/23/2020 7:22 PM FINDINGS: Airway: The airways are patent. Lungs: Patchy/ground-glass opacities in the right lung base. Remainder of the lungs are clear. Pleural spaces: Unremarkable. No pleural effusion. No pneumothorax. Heart/Mediastinum: The heart is moderately enlarged. Vasculature: Calcified aortic knob. Bones/joints: No acute skeletal abnormality or aggressive osseous lesion. Sternotomy wires and mediastinal surgical clips are present, consistent with previous coronary arterial bypass grafting. IMPRESSION: High concern for acute airspace disease in the right lung base in which developing pneumonia should be entertained.
--- NOTE | 2021-02-23 17:43 | ECG_ITS ---
APPROVED REPORT Exam: Resting ECG HR:105 bpm ECG Measurements Heart Rate 105 AXES GA 182 P 60 QRSd 138 QRS 3 QT 372 T 94 QTc 491 Conclusion Sinus tachycardia Previously noted left bundle branch block Abnormal ECG Electronically signed by : Royer Parrish, 02/25/2021 17:33:57
--- NOTE | 2021-02-23 17:44 | PC.NURSE ---
Pt had ASA INSIDE UPHOLSTERER
[2021-02-23 17:45] VITALS: BP 189/75; PULSE 100; O2SAT 97
--- NOTE | 2021-02-23 18:01 | HMH.EDGENADL ---
ED Disposition Clinical Impression: Chest pain Qualifiers: Chest pain type: unspecified Qualified Code(s): R07.9 - Chest pain, unspecified Disposition: Home, Self-Care Condition on Discharge: Good Referrals: Royer Parrish MD [Primary Care Provider] - 3 days Emiliano Pineda MD [Staff Physician] - 02/25/21 (Call for an appointment) Time of Disposition: 19:28 - Critical Care Critical Care Time: No Attestation: On 02/23/21, the high probability of a clinically significant, sudden or life threatening deterioration of the following system(s) required my full and direct attention, intervention and personal management. The time I documented below is in addition to time spent performing reported procedures but includes the following listed in this critical care notation. Medical Decision Making - Medical Records Medical records reviewed: Yes: I reviewed the patient's medical records. - Donnell Inquiry Pt receiving controlled substance: No Vital Signs: 02/23/21 17:42 02/23/21 17:45 02/23/21 18:20 Temperature 97.9 F Temperature Source Oral Pulse Rate 100 H 90 Pulse Rate [Right] 81 Respiratory Rate 18 Blood Pressure 189/75 H 187/62 H Blood Pressure [Right Arm] 189/75 H Blood Pressure Mean 95 103 Blood Pressure Mean [Right Arm] 113 02 Sat by Pulse Oximetry 98 97 94 L Oxygen Delivery Method Room Air - Lab Data Lab results reviewed: Yes: I reviewed the patient's lab results. Lab Results 02/23/21 18:05: WBC 6.9, RBC 3.10 L, Hgb 10.0 L, Hct 29.9 L, MCV 96.4, MCH 32.4 H, MCHC 33.6, RDW 13.6, Plt Count 182, MPV 8.0, Neut % (Auto) 67.1, Lymph % (Auto) 20.0, Howard % (Auto) 9.2, Eos % (Auto) 3.4, Baso % (Auto) 0.4, Neut # (Auto) 4.6, Lymph # (Auto) 1.4, Howard # (Auto) 0.6, Eos # (Auto) 0.2, Baso # (Auto) 0.0 02/23/21 18:05: Sodium 139, Potassium 4.5, Chloride 109 H, Carbon Dioxide 20 L, Anion Gap 14.5, BUN 27 H, Creatinine 1.40 H, Estimated Creat Clear 45, Estimated GFR 37 L, Est GFR ( Amer) 45 L, Glucose 212 H, Calcium 8.6, Troponin I 0.02, NT-Pro-B Natriuret Pep 3450 H Result diagrams: 02/23/21 18:05 02/23/21 18:05 Orders (Tests/Meds): ORDERS Category Date Time Status Troponin I Q3H Lab 02/23/21 20:45 Ordered Troponin I Q3H Lab 02/23/21 23:45 Ordered - ECG Data Tracing #1 105 bpm, sinus tachycardia, nonspecific intraventricular block, no ST elevation or depression, normal intervals, no ectopy. ECG initial impression date: 02/23/21 ECG initial impression time: 17:43 - SIMONA Score for Non-Stemi Age of Patient: 70-79 years old Heart Rate: 70-89 bpm Systolic Blood Pressure: 160-199 mmHg Serum Creatinine: 1.60-1.99 mg/dl CHF Killip Class: I-No CHF Other Risk Factors: None Non-Stemi Risk Score: 107 Medical Decision Narrative: 70yo F presents emergency department secondary to chest pain, shortness of breath, jaw pain. The patient's left jaw pain seems to be her primary concern. Physical exam is largely unremarkable. She does have a significant cardiac history but underwent heart catheterization July 2020 with widely patent grafts. Routine cardiac work-up is been initiated at this time. Patient is in no acute distress and her EKG is reviewed as above. No significant change when EKG from today's visit compared to previous EKG. Patient's troponin is 0.02. Her BNP is lower than it has been in the past and she reports she has a regiment at home for taking extra medicine based off of her daily weight. Patient's labs are otherwise unremarkable. Her pain has resolved during her observation emergency department without intervention. Discussed taking her pain medication at home as directed for pain. Also asked the patient to follow-up with Dr. Pineda on Thursday for further direction and possible evaluation. Patient voiced understanding and agreed with the plan. General Adult HPI - General Stated complaint: Chest Pain Time Seen by Provider: 02/23/21 18:01 Mode of Arrival
[2021-02-23 18:13] LABS: Basophils % 0.4 % (0.1-2.0); Eosinophils # 0.2 K/mm3 (0.0-0.4); Eosinophils % 3.4 % (0.1-12.0); Hematocrit 29.9 % (37.0-47.0); Lymphocytes # 1.4 K/mm3 (0.7-4.5); Mean Corpuscular HGB Conc 33.6 g/dL (31.8-35.4); Mean Corpuscular Hemoglobin 32.4 pg (27.0-31.2); Mean Corpuscular Volume 96.4 fl (81-99); Monocytes # 0.6 K/mm3 (0.1-1.0); Monocytes % 9.2 % (1.7-9.3); Neutrophils # 4.6 K/mm3 (1.8-7.8); Neutrophils % 67.1 % (37.0-80.0); Platelet Count 182 K/mm3 (142-424); Red Cell Distribution Width 13.6 % (11.5-17.5); White Blood Count 6.9 K/mm3 (4.8-10.8)
[2021-02-23 18:20] VITALS: BP 187/62; PULSE 90; O2SAT 94
[2021-02-23 18:23] LABS: Anion Gap 14.5 mEq/L (5-15); Blood Urea Nitrogen 27 mg/dl (7-17); Calcium 8.6 mg/dl (8.4-10.2); Carbon Dioxide 20 mmol/L (22.0-30.0); Chloride 109 mmol/L (98-107); Creatinine Clearance Estimated 45 mL/min (50-200); Estimated Glomerular Filt Rate 37 ml/min (>60); GFR (African American) 45 ML/MIN (>60); Glucose 212 mg/dl (74-100); Potassium 4.5 mmoL/L (3.5-5.1); Sodium 139 mmol/L (136-145)
[2021-02-23 18:32] LABS: NT Pro Brain Natriuretic Pep. 3450 pg/mL (0-125)
[2021-02-23 18:49] LABS: Troponin I 0.02 ng/ml (0.00-0.034)
[2021-02-23 19:00] VITALS: BP 180/60; PULSE 71; RESP 23; O2SAT 94
[2021-02-23 20:05] VITALS: BP 179/61; PULSE 74; RESP 20; TEMP 36.7; O2SAT 94
== END 2021-02-23 20:06 | disposition home or self-care (01) ==
PROVIDERS: Emergency Provider Family Medicine; PCP Internal Medicine Adolescent Medicine
DX: R07.89 Other chest pain (principal); R06.02 Shortness of breath; I25.10 Atherosclerotic heart disease of native coronary artery without angina pectoris; I10 Essential (primary) hypertension; I25.2 Old myocardial infarction; M81.0 Age-related osteoporosis without current pathological fracture; E78.5 Hyperlipidemia, unspecified
CPT/HCPCS: 71045; 80048; 83880; 84484; 85025; 93005; 99282

== ENCOUNTER → 2021-02-28 16:50 | Outpatient (CLI) | payer MEDICARE, SELFPAY ==
[2021-02-28 17:27] LABS: Basophils # 0.1 K/mm3 (0-0.2); Basophils % 0.8 % (0.1-2.0); Eosinophils # 0.2 K/mm3 (0.0-0.4); Hemoglobin 9.5 g/dL (12.2-16.2); Lymphocytes # 1.5 K/mm3 (0.7-4.5); Lymphocytes % 23.2 % (10-50); Mean Corpuscular HGB Conc 33.9 g/dL (31.8-35.4); Mean Corpuscular Hemoglobin 32.3 pg (27.0-31.2); Mean Corpuscular Volume 95.2 fl (81-99); Mean Platelet Volume 8.2 fl (7.4-10.4); Monocytes # 0.7 K/mm3 (0.1-1.0); Monocytes % 10.8 % (1.7-9.3); Neutrophils % 62.1 % (37.0-80.0); Platelet Count 229 K/mm3 (142-424); Red Blood Count 2.94 M/mm3 (4.20-5.40); Red Cell Distribution Width 13.6 % (11.5-17.5); White Blood Count 6.4 K/mm3 (4.8-10.8)
[2021-02-28 18:09] LABS: Hemoglobin A1C 5.6 % (4.0-6.0)
[2021-02-28 18:24] LABS: Chloride 107 mmol/L (98-107); Potassium 4.5 mmoL/L (3.5-5.1); Sodium 140 mmol/L (136-145)
[2021-02-28 18:26] LABS: Blood Urea Nitrogen 28 mg/dl (7-17); Estimated Glomerular Filt Rate 32 ml/min (>60); GFR (African American) 38 ML/MIN (>60)
[2021-02-28 18:27] LABS: Alanine Aminotransferase 12 U/L (12-78); Albumin Level 3.7 g/dl (3.5-5.0); Albumin/Globulin Ratio 1.6 (1.1-1.8); Alkaline Phosphatase 80 U/L (38-126); Anion Gap 10.5 mEq/L (5-15); Aspartate Amino Transferase 23 U/L (14-36); Bilirubin,Total 0.4 mg/dl (0.2-1.3); Calcium 8.7 mg/dl (8.4-10.2); Carbon Dioxide 27 mmol/L (22.0-30.0); Globulin 2.3 g/dL (1.3-3.2); Glucose 70 mg/dl (74-100)
[2021-02-28 19:57] LABS: Thyroid Stimulating Hormone 1.73 uIU/mL (0.465-4.68)
[2021-03-01 10:37] LABS: Ferritin 207 ng/ml (11.1-264)
[2021-03-01 11:35] LABS: Vitamin B12 248 pg/mL (239-931)
[2021-03-04 18:17] LABS: Erythropoietin 14.5 mIU/mL (2.6-18.5)
== END ==
PROVIDERS: Visit Provider Internal Medicine Adolescent Medicine
DX: I25.10 Atherosclerotic heart disease of native coronary artery without angina pectoris (principal); E03.9 Hypothyroidism, unspecified; E11.9 Type 2 diabetes mellitus without complications; D64.9 Anemia, unspecified; Z79.4 Long term (current) use of insulin
CPT/HCPCS: 36415; 80053; 82607; 82668; 82728; 83036; 84443; 85025

== ENCOUNTER → 2021-03-07 17:22 | Outpatient (CLI) | payer MEDICARE, SELFPAY | PROVIDERS: Visit Provider Nurse Practitioner | DX: S80.821A Blister (nonthermal), right lower leg, initial encounter (principal); Z51.89 Encounter for other specified aftercare | CPT/HCPCS: 87070; 87186; 87205 ==

== ENCOUNTER → 2021-04-04 15:10 | Outpatient (CLI) | payer MEDICARE, SELFPAY ==
[2021-04-04 16:01] LABS: Basophils % 0.4 % (0.1-2.0); Eosinophils # 0.5 K/mm3 (0.0-0.4); Eosinophils % 6.9 % (0.1-12.0); Hematocrit 28.2 % (37.0-47.0); Hemoglobin 9.7 g/dL (12.2-16.2); Lymphocytes # 1.3 K/mm3 (0.7-4.5); Lymphocytes % 20.1 % (10-50); Mean Corpuscular HGB Conc 34.2 g/dL (31.8-35.4); Mean Corpuscular Volume 93.5 fl (81-99); Monocytes # 0.5 K/mm3 (0.1-1.0); Monocytes % 7.3 % (1.7-9.3); Neutrophils # 4.3 K/mm3 (1.8-7.8); Neutrophils % 65.2 % (37.0-80.0); Platelet Count 203 K/mm3 (142-424); Red Blood Count 3.02 M/mm3 (4.20-5.40); Red Cell Distribution Width 13.6 % (11.5-17.5); White Blood Count 6.5 K/mm3 (4.8-10.8)
[2021-04-04 16:14] LABS: Chloride 105 mmol/L (98-107); Potassium 4.4 mmoL/L (3.5-5.1); Sodium 138 mmol/L (136-145)
[2021-04-04 16:16] LABS: Alanine Aminotransferase 13 U/L (12-78); Aspartate Amino Transferase 29 U/L (14-36); Blood Urea Nitrogen 41 mg/dl (7-17); Estimated Glomerular Filt Rate 26 ml/min (>60); GFR (African American) 31 ML/MIN (>60)
[2021-04-04 16:17] LABS: Albumin Level 3.5 g/dl (3.5-5.0); Albumin/Globulin Ratio 1.3 (1.1-1.8); Alkaline Phosphatase 109 U/L (38-126); Bilirubin,Total 0.5 mg/dl (0.2-1.3); Calcium 8.8 mg/dl (8.4-10.2); Carbon Dioxide 26 mmol/L (22.0-30.0); Globulin 2.6 g/dL (1.3-3.2); Glucose 186 mg/dl (74-100); Total Protein,Serum 6.1 g/dl (6.3-8.2)
[2021-04-04 16:22] LABS: C-Reactive Protein 2.1 mg/L (0-4)
[2021-04-04 16:45] LABS: Erythrocyte Sedimentation Rate < 140 mm/hr (0-30)
[2021-04-04 20:43] LABS: Anion Gap 11.4 mEq/L (5-15)
== END ==
PROVIDERS: Visit Provider Podiatrist
DX: Z51.89 Encounter for other specified aftercare (principal); R63.0 Anorexia; E11.621 Type 2 diabetes mellitus with foot ulcer; L97.512 Non-pressure chronic ulcer of other part of right foot with fat layer exposed; L03.115 Cellulitis of right lower limb; Z79.4 Long term (current) use of insulin
CPT/HCPCS: 80053; 85025; 85651; 86140

== ENCOUNTER → 2021-04-05 13:24 | Outpatient (CLI) | payer MEDICARE, SELFPAY ==
--- NOTE | 2021-04-05 13:25 | CA_ITS ---
APPROVED REPORT Bilateral Lower Extremity Venous Study for DVT. Monorail Crane Operator: Sirena Dawn RVT Indications Lower Extremity Pain: Bilateral Lower Extremity Edema: Bilateral CAD edema Risk Factors Obesity CAD Vein Imaging CFV (R): compressive, spontaneous, phasic, augmentation FEM (R): compressive, spontaneous, phasic, augmentation POP (R): compressive, spontaneous, phasic, augmentation PTV (R): Compressible GSV (R): Compressible Peroneals (R):Compressible GAS (R): Compressible CFV (L): compressive, spontaneous, phasic, augmentation FEM (L): compressive, spontaneous, phasic, augmentation POP (L): compressive, spontaneous, phasic, augmentation PTV (L): Compressible GSV (L): Compressible Peroneals (L):Compressible GAS (L): Compressible Findings Study suggests no evidence of DVT or SVT of the bilateral lower extremities. Conclusion Study suggests no evidence of DVT or SVT of the bilateral lower extremities. Electronically signed by : Federico Justice MD 04/05/2021 15:56:24
--- NOTE | 2021-04-05 13:27 | US_ITS ---
APPROVED REPORT Exam Type: Lower Extremity Segmental Pressures Medical Administrative: Sirena Dawn RVT Indications Claudication: Bilaterally Non-healing Ulcer: Right Rest Pain: Bilaterally Edema PAD CAD ULCER MEDIAL RIGHT LOWER LEG Risk Factors Hypertension CAD Hyperlipidemia Obesity Diabetes Pressures/Indices Right Indices Left Indices Brachial 179.00 mmHg Brachial 179.00 mmHg Low Thigh 255.00 mmHg 0.00 Low Thigh 255.00 mmHg 0.00 Calf 255.00 mmHg 0.00 Calf 255.00 mmHg 0.00 Ankle(PT) 208.00 mmHg 1.16 Ankle(PT) 255.00 mmHg 0.00 Ankle(DP) 255.00 mmHg 0.00 Ankle(DP) 255.00 mmHg 0.00 Digit 86.00 mmHg 0.48 Digit 126.00 mmHg 0.70 Findings RT MANAN:1.16 LT MANAN:NON-COMPRESSIBLE RT TBI:0.48 LT TBI:0.70 DAMPENED PULSES BILATERAL DAMPANED WAVEFORMS BILATERAL Conclusion RT MANAN:1.16 LT MANAN:NON-COMPRESSIBLE RT TBI:0.48 LT TBI:0.70 DAMPENED PULSES BILATERAL DAMPANED WAVEFORMS BILATERAL Electronically signed by : Federico Justice MD 04/05/2021 15:55:39
== END ==
PROVIDERS: PCP Internal Medicine Adolescent Medicine; Visit Provider Physician Assistant
DX: E78.5 Hyperlipidemia, unspecified (principal); I25.10 Atherosclerotic heart disease of native coronary artery without angina pectoris; I50.9 Heart failure, unspecified; I73.9 Peripheral vascular disease, unspecified; L03.116 Cellulitis of left lower limb; L97.909 Non-pressure chronic ulcer of unspecified part of unspecified lower leg with unspecified severity; N18.4 Chronic kidney disease, stage 4 (severe); R60.9 Edema, unspecified; Z95.1 Presence of aortocoronary bypass graft; I11.0 Hypertensive heart disease with heart failure
CPT/HCPCS: 93923; 93970

== ENCOUNTER 2021-04-09 13:00 | Outpatient (RCR) | payer MEDICARE, SELFPAY ==
--- NOTE | 2020-12-26 15:42 | HMH.PTOPWND ---
Rehab Outpt Wound Evaluation Rehab OP Wound Evaluation Start: 12/26/20 15:30 Freq: Status: Active Protocol: Document 12/26/20 15:32 KAYCE (Rec: 12/26/20 15:42 PHORLINDA [id number]) Electronically Signed By Karson León, PT 12/26/20 15:32 Subjective/History History History Pt is 70 yowf who presents with B LE edema for many years , worse on R LE. She reports over the past several months her R LE has gotten much bigger with increased swelling . She also reports she currently has a wound on her R heel which limits her ability to walk. She has scar on the lateral R lower leg due to prior wound that took an extended period of time to heel. Subjective Subjective No c/o pain, minimal c/o tenderness with palpation B. Lymphedema Eval Classification of Lymphedema Secondary Lymphedema Yes Stemmer's sign Stemmer's Sign yes Stage of Lymphedema Lymphedema stages Stage II (Pitting edema, increased fibrosis w/ decreased pitting) Skin Changes Dry Skin Yes Skin Folds Yes Redness Yes Wounds Yes Brittle Uneven Nails Yes Discoloration of Skin Yes Other Changes Yes Affected Extremities Areas Affected by Lymphedema/Edema Right Lower Extremity,Left Lower Extremity Manual Lymphatic Drainage Treatment Area MLD Treatment Area Right Lower Extremity,Left Lower Extremity Wound Problems/Impairments Impairments Problems/Impairmments Palpation Tenderness,Impaired Endurance,Impaired Gait Pattern,Impaired Walking, Increased Edema,Lymphedema Present,Wound Care Needs, Subjective C/O Pain,Impaired Self Care/Self Management Prognosis Rehab Potential Good Clinical Impression Consistent with Diagnosis Yes Short Term Goals Number of Weeks 4 Decreased Palpation Tenderness Yes Decrease Edema Yes Patient to Understand Lymphedema Yes Treatment and Exercises Decrease Girth Measurments by (cm) Yes: by 10 cm Intermediate Goals Nu
--- NOTE | 2021-02-14 16:34 | HMH.RHREAS ---
Rehab Reassessment Rehab OP Re-assessment Start: 02/14/21 16:31 Freq: Status: Active Protocol: Document 02/14/21 16:31 KAYCE (Rec: 02/14/21 16:34 KAYCE [id number]) Electronically Signed By Karson León, PT 02/14/21 16:31 Rehab Re-assessment Subjective Subjective Pt reports she feels better, but is still swollen. Objective Objective Notes B LE 2+ pitting edema, R with larger circumference than L. Surgical incision noted to R heel with steri-strips in place. Assessment Progress Assessment Progressing as Expected Assessment Notes Improved edema overall, but continues to show significant pitting. Following all WB precautions per DPM. Less pain also. Patient goals met ST,2,3 Goals Not Met LT,2,3,4,5,6 Revised Goals none Plan Plan Continue per initial POC. Frequency of Therapy 2 x/wk Duration of therapy 8 wks Time and Billing Re-Eval Time 15 Re-Eval Billing Units 0 PHYSICIAN CERTIFICATION: I certify the specified therapy services for Marley Marie are required, authorized, and reviewed every 30 days.
--- NOTE | 2021-03-12 16:10 | HMH.RHREAS ---
Rehab Reassessment Rehab OP Re-assessment Start: 02/14/21 16:31 Freq: Status: Active Protocol: Document 03/12/21 16:07 KAYCE (Rec: 03/12/21 16:10 KAYCE [id number]) Electronically Signed By Karson León, PT 03/12/21 16:07 Rehab Re-assessment Subjective Subjective Pt reports R LE is very sore with blister around the R Gaitor are for several days. Objective Objective Notes B LE 2+ pitting edema, R with signifcantly larger circumference than L. Multiple open sores noted that were serous filled blisters and drainaed at [facility] office. Assessment Progress Assessment Slower Than Expected Assessment Notes Pt has had difficulty with increased edema since her surgery on the R heel. She remains unable to bear much wt at all and has significantly increased edema in her R LE. Patient goals met ST,2,3 Goals Not Met LT,2,3,4,5,6 Revised Goals none Plan Plan Continue per initial POC. Frequency of Therapy 2 x/wk Duration of therapy 8 wks Time and Billing Re-Eval Time 15 Re-Eval Billing Units 0 PHYSICIAN CERTIFICATION: I certify the specified therapy services for Marley Marie are required, authorized, and reviewed every 30 days.
== END 2021-04-09 13:05 | disposition home or self-care (01) ==
LOC: PT 13:00
PROVIDERS: PCP Internal Medicine Adolescent Medicine; Visit Provider Internal Medicine Adolescent Medicine
DX: I89.0 Lymphedema, not elsewhere classified (principal)
CPT/HCPCS: 29580; 97140; 97162; 97164; 97597; 97760

== ENCOUNTER 2021-04-10 02:31 | Emergency (ER) | payer MEDICARE, SELFPAY ==
[2021-04-10] VITALS (8 sets, daily range): BP systolic 139–169; BP diastolic 64–85; PULSE 74–93; RESP 18–22; TEMP 37.2–37.4; O2SAT 94–97; BMI 33.8
--- NOTE | 2021-04-10 02:40 | ECG_ITS ---
APPROVED REPORT Exam: Resting ECG HR:89 bpm ECG Measurements Heart Rate 89 AXES SD 210 P 77 QRSd 158 QRS -9 QT 434 T 117 QTc 528 Conclusion Sinus rhythm with 1st degree AV block Left bundle branch block Abnormal ECG Electronically signed by : Royer Parrish MD 04/10/2021 08:36:32
--- NOTE | 2021-04-10 03:09 | CT_ITS ---
PROCEDURE INFORMATION: Exam: CT Head Without Contrast Exam date and time: 04/10/2021 3:09 AM Age: 70 years old Clinical indication: Altered mental status/memory loss; Patient HX: AMS, TECHNIQUE: Imaging protocol: Computed tomography of the head without contrast. 3D rendering (Not supervised by radiologist): MIP and/or 3D reconstructed images were created by the technologist. Radiation optimization: All CT scans at this facility use at least one of these dose optimization techniques: automated exposure control; mA and/or kV adjustment per patient size (includes targeted exams where dose is matched to clinical indication); or iterative reconstruction. COMPARISON: CT HEAD/BRAIN WO CON 04/27/2020 4:34 PM FINDINGS: Limitations: Motion artifact - mild. Brain: [id number] atrophy. No definite intracranial hemorrhage. No mass. Few scattered foci of decreased attenuation within periventricular/subcortical white matter. No definite edema. Cerebral ventricles: No hydrocephalus. Paranasal sinuses: No acute sinusitis. Mastoid air cells: No significant effusion. Orbital cavity: Unremarkable as visualized. Vasculature: Atherosclerotic disease of intracranial arteries. Bones/joints: No acute fracture. Soft tissues: Unremarkable. IMPRESSION: Probable chronic microvascular ischemic changes. If symptoms persist, consider MRI.
--- NOTE | 2021-04-10 03:09 | XR_ITS ---
PROCEDURE INFORMATION: Exam: XR Chest Exam date and time: 04/10/2021 3:09 AM Age: 70 years old Clinical indication: Other: AMS; Prior surgery; Surgery date: 6+ months; Surgery type: Open heart SX 2010 TECHNIQUE: Imaging protocol: XR of the chest. Views: 4 or more views. COMPARISON: CR XR CHEST PORTABLE 02/23/2021 5:53 PM FINDINGS: Lungs: No definite consolidation. Pleural spaces: No significant pleural effusion. No pneumothorax. Heart/Mediastinum: Mild cardiomegaly. CABG. Bones/joints: Unremarkable. IMPRESSION: Mild cardiomegaly.
[2021-04-10 03:20] LABS: Microscopic, Urine URINE MICROSCOPIC (MICROSCOPIC)
[2021-04-10 03:22] LABS: Appearance,Urine CLEAR (Clear); Bilirubin,Urine Negative (Negative); Blood, Urine 1+ (Negative); Color,Urine YELLOW (Yellow); Glucose,Urine (UA) Negative (Negative); Ketones,Urine Negative (Negative); Leukocyte Esterase,Urine Negative (Negative); Nitrate,Urine Negative (Negative); Protein,Urine 2+ (Negative); Urobilinogen,Urine 0.2 EU/dl (0.2)
[2021-04-10 03:27] LABS: Bacteria,Urine Trace /lpf
[2021-04-10 03:33] LABS: ABG Base Excess 2.6 mmol/L (-2.4-2.3); ABG HCO3 26.4 mmhg (22.0-26.0); ABG Oxygen Saturation 96 % (90-100); ABG PH 7.46 mmol/L (7.35-7.45); ABG PO2 77.7 mmhg (80-100); ABG TCO2 27.6 mmhg (23-27); Allen's Test Acceptable; Oxygen 21 %; Source Left Radial
[2021-04-10 04:44] LABS: Alanine Aminotransferase 15 U/L (12-78); Albumin Level 3.5 g/dl (3.5-5.0); Albumin/Globulin Ratio 1.3 (1.1-1.8); Alkaline Phosphatase 93 U/L (38-126); Anion Gap 9.1 mEq/L (5-15); Aspartate Amino Transferase 29 U/L (14-36); Basophils % 0.6 % (0.1-2.0); Bilirubin,Total 0.8 mg/dl (0.2-1.3); Blood Urea Nitrogen 28 mg/dl (7-17); Calcium 9.1 mg/dl (8.4-10.2); Carbon Dioxide 28 mmol/L (22.0-30.0); Chloride 105 mmol/L (98-107); Creatinine Clearance Estimated 48 mL/min (50-200); Eosinophils # 0.2 K/mm3 (0.0-0.4); Eosinophils % 2.9 % (0.1-12.0); Estimated Glomerular Filt Rate 37 ml/min (>60); GFR (African American) 45 ML/MIN (>60); Globulin 2.7 g/dL (1.3-3.2); Glucose 144 mg/dl (74-100); Hematocrit 30.7 % (37.0-47.0); Hemoglobin 10.5 g/dL (12.2-16.2); Lactic Acid 1.5 mmol/L (0.7-2.1); Lymphocytes # 1.2 K/mm3 (0.7-4.5); Lymphocytes % 19.1 % (10-50); Mean Corpuscular Hemoglobin 31.7 pg (27.0-31.2); Mean Corpuscular Volume 93.2 fl (81-99); Monocytes # 0.4 K/mm3 (0.1-1.0); Monocytes % 6.6 % (1.7-9.3); Neutrophils # 4.6 K/mm3 (1.8-7.8); Neutrophils % 70.8 % (37.0-80.0); Platelet Count 222 K/mm3 (142-424); Potassium 4.1 mmoL/L (3.5-5.1); Red Blood Count 3.29 M/mm3 (4.20-5.40); Red Cell Distribution Width 13.3 % (11.5-17.5); Sodium 138 mmol/L (136-145); Total Protein,Serum 6.2 g/dl (6.3-8.2); White Blood Count 6.4 K/mm3 (4.8-10.8)
[2021-04-10 04:49] LABS: C-Reactive Protein 1.5 mg/L (0-4)
[2021-04-10 05:03] LABS: Procalcitonin 0.065 ng/mL (0.0-2.0)
[2021-04-10 05:50] LABS: Erythrocyte Sedimentation Rate > 140 mm/hr (0-30)
--- NOTE | 2021-04-10 06:08 | HMH.EDAMS ---
ED Disposition Clinical Impression: Delirium due to general medical condition, Obesity (BMI 30.0-34.9), Elevated erythrocyte sedimentation rate, Stage 4 chronic kidney disease Diabetic ulcer of right foot associated with diabetes mellitus due to underlying condition, limited to breakdown of skin Qualifiers: Diabetic foot ulcer location: unspecified part of foot Qualified Code(s): E08.621 - Diabetes mellitus due to underlying condition with foot ulcer; L97.511 - Non-pressure chronic ulcer of other part of right foot limited to breakdown of skin Disposition: Home, Self-Care Condition on Discharge: Fair Instructions: DI for Altered Mental Status Additional Instructions: call pcp this am Referrals: Royer Parrish MD [Primary Care Provider] - - Critical Care Critical Care Time: No Attestation: On 04/10/21, the high probability of a clinically significant, sudden or life threatening deterioration of the following system(s) required my full and direct attention, intervention and personal management. The time I documented below is in addition to time spent performing reported procedures but includes the following listed in this critical care notation. Medical Decision Making - Medical Records Medical records reviewed: Yes: I reviewed the patient's medical records. - Donnell Inquiry Pt receiving controlled substance: No Vital Signs: 04/10/21 02:54 04/10/21 03:30 04/10/21 04:43 Temperature 99.0 F Temperature Source Rectal Pulse Rate 80 77 Pulse Rate [Right] 92 H Respiratory Rate 22 Blood Pressure 158/73 H 163/64 H Blood Pressure [Right Arm] 169/85 H Blood Pressure Mean [Right Arm] 113 Blood Pressure Source [Right Arm] Automatic Cuff Blood Pressure Position [Right Arm] Supine 02 Sat by Pulse Oximetry 97 95 95 Oxygen Delivery Method Room Air 04/10/21 05:00 04/10/21 05:30 04/10/21 06:00 Temperature Temperature Source Pulse Rate 77 74 84 Pulse Rate [Right] Respiratory Rate Blood Pressure 160/78 H 160/73 H 154/80 H Blood Pressure [Right Arm] Blood Pressure Mean [Right Arm] Blood Pressure Source [Right Arm] Blood Pressure Position [Right Arm] 02 Sat by Pulse Oximetry 94 L 94 L 96 Oxygen Delivery Method 04/10/21 06:30 Temperature Temperature Source Pulse Rate 82 Pulse Rate [Right] Respiratory Rate Blood Pressure 156/75 H Blood Pressure [Right Arm] Blood Pressure Mean [Right Arm] Blood Pressure Source [Right Arm] Blood Pressure Position [Right Arm] 02 Sat by Pulse Oximetry 94 L Oxygen Delivery Method - Lab Data Lab results reviewed: Yes: I reviewed the patient's lab results. Lab Results 04/10/21 02:55: Urine Color Yellow, Urine Appearance Clear, Urine pH 8.0, Ur Specific [place] 1.020, Urine Protein 2+, Urine Glucose (UA) Negative, Urine Ketones Negative, Urine Blood 1+, Urine Nitrate Negative, Urine Bilirubin Negative, Urine Urobilinogen 0.2, Ur Leukocyte Esterase Negative, Urine RBC 5-10, Urine Bacteria Trace 04/10/21 03:07: Specimen Source Left radial, O2 % 21, ABG pH 7.46 H, ABG pCO2 38.0, ABG pO2 77.7 L, ABG HCO3 26.4 H, ABG Total CO2 27.6 H, ABG O2 Saturation 96, ABG Base Excess 2.6 H, Federico Test Acceptable 04/10/21 04:25: WBC 6.4, RBC 3.29 L, Hgb 10.5 L, Hct 30.7 L, MCV 93.2, MCH 31.7 H, MCHC 34.0, RDW 13.3, Plt Count 222, MPV 8.0, Neut % (Auto) 70.8, Lymph % (Auto) 19.1, Bartholomew % (Auto) 6.6, Eos % (Auto) 2.9, Baso % (Auto) 0.6, Neut # (Auto) 4.6, Lymph # (Auto) 1.2, Bartholomew # (Auto) 0.4, Eos # (Auto) 0.2, Baso # (Auto) 0.0, ESR > 140 H 04/10/21 04:25: Sodium 138, Potassium 4.1, Chloride 105, Carbon Dioxide 28, Anion Gap 9.1, BUN 28 H, Creatinine 1.40 H, Estimated Creat Clear 48, Estimated GFR 37 L, Est GFR ( Amer) 45 L, Glucose 144 H, Calcium 9.1, Total Bilirubin 0.8, AST 29, ALT 15, Alkaline Phosphatase 93, C-Reactive Protein 1.5, Total Protein 6.2 L, Albumin 3.5, Globulin 2.7, Albumin/Globulin Ratio 1.3, Procalcitonin 0.065 04/10/21 04:25: Lact
--- NOTE | 2021-04-10 07:23 | PC.NURSE ---
Lab at bedside at this time attempting to obtain additional laboratories
[2021-04-10 07:44] LABS: Ammonia < 9 umol/L (9-30)
--- NOTE | 2021-04-10 08:03 | PC.NURSE ---
An removed without difficulties, 800mL out.
--- NOTE | 2021-04-10 08:15 | PC.NURSE ---
Voicemail left with family member, Louisa for patient's ride home.
== END 2021-04-10 08:35 | disposition home or self-care (01) ==
PROVIDERS: Emergency Provider Emergency Medicine; PCP Internal Medicine Adolescent Medicine
DX: F05 Delirium due to known physiological condition (principal); E08.621 Diabetes mellitus due to underlying condition with foot ulcer; L97.511 Non-pressure chronic ulcer of other part of right foot limited to breakdown of skin; N18.4 Chronic kidney disease, stage 4 (severe); I44.7 Left bundle-branch block, unspecified
CPT/HCPCS: 36415; 70450; 71045; 80053; 81001; 82140; 82803; 83605; 84145; 85025; 85651; 86140; 87040; 93005; 96365; 99283

== ENCOUNTER 2021-04-10 22:13 | Inpatient (IN) | payer MEDICARE, SELFPAY ==
[2021-04-10] VITALS (7 sets, daily range): BP systolic 116–177; BP diastolic 63–100; PULSE 112–132; RESP 28–42; TEMP 37.2–39.3; O2SAT 85–100; BMI 39.8
--- NOTE | 2021-04-10 22:08 | XR_ITS ---
PROCEDURE INFORMATION: Exam: XR Chest Exam date and time: 04/10/2021 10:08 PM Age: 70 years old Clinical indication: Shortness of breath; Prior surgery; Surgery type: Open heart 2011; Additional info: Shortness of air TECHNIQUE: Imaging protocol: XR of the chest. Views: 1 view. COMPARISON: CR XR CHEST AP 04/10/2021 3:18 AM FINDINGS: Lungs: Right greater than left bibasilar airspace opacities are seen. Pulmonary vasculature appears cephalized. Pleural spaces: Unremarkable. No pleural effusion. No pneumothorax. Heart/Mediastinum: Unchanged heart mediastinum. Bones/joints: Unremarkable. IMPRESSION: Bibasilar airspace opacities could represent edema or infection
--- NOTE | 2021-04-10 22:17 | ECG_ITS ---
APPROVED REPORT Exam: Resting ECG HR:132 bpm ECG Measurements Heart Rate 132 AXES QRSd 154 QRS -5 QT 390 T 109 QTc 577 Conclusion Atrial fibrillation with rapid ventricular response Left bundle branch block Abnormal ECG Electronically signed by : Royer Parrish MD 04/11/2021 22:28:01
[2021-04-10 22:18] LABS: ABG Base Excess -15.3 mmol/L (-2.4-2.3); ABG HCO3 15.7 mmhg (22.0-26.0); ABG Oxygen Saturation 90 % (90-100); ABG PO2 82.3 mmhg (80-100); ABG TCO2 17.6 mmhg (23-27)
[2021-04-10 22:19] LABS: Allen's Test Acceptable; Oxygen 15 LPM %; Source Right Radial
[2021-04-10 22:23] LABS: ABG PH 7.02 mmol/L (7.35-7.45)
[2021-04-10 22:24] LABS: ABG PCO2 62.4 mmhg (35.0-45.0)
--- NOTE | 2021-04-10 23:01 | HMH.EDSOB ---
ED Disposition Clinical Impression: Respiratory failure requiring intubation, Severe sepsis with acute organ dysfunction, Septic shock, Non-STEMI (non-ST elevated myocardial infarction), Left bundle branch block (LBBB) CAP (community acquired pneumonia) Qualifiers: Laterality: right Lung location: lower lobe of lung Qualified Code(s): J18.9 - Pneumonia, unspecified organism CHF (congestive heart failure) Qualifiers: Heart failure type: biventricular Qualified Code(s): I50.82 - Biventricular heart failure Disposition: Admitted As Inpatient Condition on Discharge: Critical - Critical Care Critical Care Time: Yes Attestation: On 04/10/21, the high probability of a clinically significant, sudden or life threatening deterioration of the following system(s) required my full and direct attention, intervention and personal management. The time I documented below is in addition to time spent performing reported procedures but includes the following listed in this critical care notation. Total Critical Care Time: 90 Vital system(s) involved:: Respiratory Failure, Shock (Septic) My critical care processes included: Assessment & monitoring of V/S, Initial and Re-exams, Data Review/Interpretation, Coordinating Care, Medication Orders and management, Documentation Medical Decision Making - Medical Records Medical records reviewed: Yes: I reviewed the patient's medical records. - Donnell Inquiry Pt receiving controlled substance: No Vital Signs: 04/10/21 22:03 04/10/21 22:32 04/10/21 23:00 Temperature 98.9 F Temperature Source Oral Pulse Rate 132 H Pulse Rate [Right Brachial] 129 H Respiratory Rate 28 H 37 H Blood Pressure 165/93 H 140/80 Blood Pressure [Right Arm] 177/100 H Blood Pressure Mean [Right Arm] 125 Blood Pressure Source Blood Pressure Source [Right Arm] Automatic Cuff Blood Pressure Position Blood Pressure Position [Right Arm] Sitting 02 Sat by Pulse Oximetry 92 L 92 L Oxygen Delivery Method Nasal Cannula 04/10/21 23:10 04/10/21 23:22 04/10/21 23:30 Temperature Temperature Source Pulse Rate 117 H 112 H Pulse Rate [Right Brachial] Respiratory Rate 40 H 37 H 42 H Blood Pressure 116/63 118/63 Blood Pressure [Right Arm] Blood Pressure Mean [Right Arm] Blood Pressure Source Blood Pressure Source [Right Arm] Blood Pressure Position Blood Pressure Position [Right Arm] 02 Sat by Pulse Oximetry 100 97 Oxygen Delivery Method 04/11/21 00:07 04/11/21 01:04 04/11/21 01:48 Temperature 100.7 F H Temperature Source Rectal Pulse Rate Pulse Rate [Right Brachial] Respiratory Rate 33 H Blood Pressure 112/68 Blood Pressure [Right Arm] Blood Pressure Mean [Right Arm] Blood Pressure Source Manual Cuff/ Auscultation Blood Pressure Source [Right Arm] Blood Pressure Position Supine Blood Pressure Position [Right Arm] 02 Sat by Pulse Oximetry 100 Oxygen Delivery Method - Lab Data Lab results reviewed: Yes: I reviewed the patient's lab results. Lab Results 04/10/21 22:08: Specimen Source Right radial, O2 % 15 lpm, ABG pH 7.02 L*, ABG pCO2 62.4 H, ABG pO2 82.3, ABG HCO3 15.7 L, ABG Total CO2 17.6 L, ABG O2 Saturation 90, ABG Base Excess -15.3 L, Federico Test Acceptable 04/10/21 23:00: WBC 13.7 H D, RBC 3.71 L, Hgb 12.0 L D, Hct 36.9 L, MCV 99.6 H, MCH 32.1 H, MCHC 32.2, RDW 13.2, Plt Count 295 D, MPV 8.4, Neut % (Auto) 62.7, Lymph % (Auto) 31.3, [place] % (Auto) 5.2, Eos % (Auto) 0.5, Baso % (Auto) 0.3, Neut # (Auto) 8.6 H, Lymph # (Auto) 4.3, [place] # (Auto) 0.7, Eos # (Auto) 0.1, Baso # (Auto) 0.0 04/10/21 23:00: Sodium 141, Potassium 4.3, Chloride 107, Carbon Dioxide 18 L D, Anion Gap 20.3 H, BUN 26 H, Creatinine 1.50 H, Estimated Creat Clear 55, Estimated GFR 34 L, Est GFR ( Amer) 41 L, Glucose 340 H D, Calcium 8.8, Total Bilirubin 0.8, AST 62 H D, ALT 28 D, Alkaline Phosphatase 92, Troponin I 1.90 H, NT-Pro-B Natriuret Pe
--- NOTE | 2021-04-10 23:06 | XR_ITS ---
PROCEDURE INFORMATION: Exam: XR Chest Exam date and time: 04/10/2021 11:06 PM Age: 70 years old Clinical indication: Device placement; Ett placement (vent status); Prior surgery; Additional info: Post intubation xray TECHNIQUE: Imaging protocol: XR of the chest. Views: 1 view. COMPARISON: CR XR CHEST PORTABLE 04/10/2021 10:20 PM FINDINGS: Tubes, catheters and devices: Interval intubation. Endotracheal tube terminates in the right mainstem bronchus. This is noted to be corrected on subsequent images. Lungs: Mild bibasilar opacities are improved. Pleural spaces: Unremarkable. No pleural effusion. No pneumothorax. Heart/Mediastinum: Heart is mildly enlarged. Bones/joints: Unremarkable. IMPRESSION: 1. Endotracheal tube terminates in the right mainstem bronchus. This is noted to be corrected on subsequent images. 2. Improved bibasilar opacities.
[2021-04-10 23:10] LABS: Basophils % 0.3 % (0.1-2.0); Eosinophils # 0.1 K/mm3 (0.0-0.4); Eosinophils % 0.5 % (0.1-12.0); Hematocrit 36.9 % (37.0-47.0); Lymphocytes # 4.3 K/mm3 (0.7-4.5); Lymphocytes % 31.3 % (10-50); Mean Corpuscular HGB Conc 32.2 g/dL (31.8-35.4); Mean Corpuscular Hemoglobin 32.1 pg (27.0-31.2); Mean Corpuscular Volume 99.6 fl (81-99); Mean Platelet Volume 8.4 fl (7.4-10.4); Monocytes # 0.7 K/mm3 (0.1-1.0); Monocytes % 5.2 % (1.7-9.3); Neutrophils # 8.6 K/mm3 (1.8-7.8); Neutrophils % 62.7 % (37.0-80.0); Platelet Count 295 K/mm3 (142-424); Red Blood Count 3.71 M/mm3 (4.20-5.40); Red Cell Distribution Width 13.2 % (11.5-17.5); White Blood Count 13.7 K/mm3 (4.8-10.8)
[2021-04-10 23:12] LABS: Chloride 107 mmol/L (98-107); Potassium 4.3 mmoL/L (3.5-5.1); Sodium 141 mmol/L (136-145)
--- NOTE | 2021-04-10 23:13 | XR_ITS ---
PROCEDURE INFORMATION: Exam: XR Chest Exam date and time: 04/10/2021 11:13 PM Age: 70 years old Clinical indication: Device placement; Ett placement (vent status); Prior surgery; Patient HX: Reposition tube; Additional info: Post-intubation TECHNIQUE: Imaging protocol: XR of the chest. Views: 1 view. COMPARISON: CR XR CHEST PORTABLE 04/10/2021 11:10 PM FINDINGS: Tubes, catheters and devices: Radiograph demonstrates endotracheal tube terminating about 1 cm above the adonay. On the comparison study, and ended in the right mainstem bronchus. Lungs: Pulmonary vasculature appears congested. Mild bibasilar opacities. Pleural spaces: Unremarkable. No pleural effusion. No pneumothorax. Heart/Mediastinum: Heart remains mildly enlarged. Bones/joints: Unremarkable. IMPRESSION: Endotracheal tube terminates about 1 cm above the adonay.
[2021-04-10 23:15] LABS: Alanine Aminotransferase 28 U/L (12-78); Albumin Level 3.7 g/dl (3.5-5.0); Albumin/Globulin Ratio 1.3 (1.1-1.8); Alkaline Phosphatase 92 U/L (38-126); Anion Gap 20.3 mEq/L (5-15); Aspartate Amino Transferase 62 U/L (14-36); Bilirubin,Total 0.8 mg/dl (0.2-1.3); Blood Urea Nitrogen 26 mg/dl (7-17); Calcium 8.8 mg/dl (8.4-10.2); Carbon Dioxide 18 mmol/L (22.0-30.0); Creatinine Clearance Estimated 55 mL/min (50-200); Estimated Glomerular Filt Rate 34 ml/min (>60); GFR (African American) 41 ML/MIN (>60); Globulin 2.9 g/dL (1.3-3.2); Glucose 340 mg/dl (74-100); Total Protein,Serum 6.6 g/dl (6.3-8.2)
--- NOTE | 2021-04-10 23:15 | PC.NURSE ---
lactic elevated. notified dr henao of result.
[2021-04-10 23:16] LABS: Lactic Acid 6.4 mmol/L (0.7-2.1)
[2021-04-10 23:33] LABS: T4 (Thyroxine) 7.7 ug/dl (5.53-11.0)
[2021-04-10 23:45] LABS: Coronavirus 19, PCR Not Detected (NotDetected); Influenza A, PCR Not Detected (NotDetected); Influenza B, PCR Not Detected (NotDetected)
[2021-04-10 23:46] LABS: Thyroid Stimulating Hormone 4.44 uIU/mL (0.465-4.68)
[2021-04-11] VITALS (41 sets, daily range): BP systolic 104–165; BP diastolic 57–97; PULSE 70–123; RESP 14–42; TEMP 36.8–38.4; O2SAT 96–100; BMI 30.5
[2021-04-11 00:09] LABS: NT Pro Brain Natriuretic Pep. 42100 pg/mL (0-125)
--- NOTE | 2021-04-11 00:10 | PC.NURSE ---
increased drip by 10 mcg/kg/min
--- NOTE | 2021-04-11 00:24 | PC.NURSE ---
called resp therapist to suction. incr propofol at this time due to being awake and pulling at tube.
--- NOTE | 2021-04-11 00:30 | PC.NURSE ---
increased drip by 10 mcg/ky/min
--- NOTE | 2021-04-11 00:40 | PC.NURSE ---
called resp for suction and incr drip by 10 mcg/kg/min
[2021-04-11 00:44] LABS: Procalcitonin 0.066 ng/mL (0.0-2.0)
--- NOTE | 2021-04-11 01:02 | ECG_ITS ---
APPROVED REPORT Exam: Resting ECG HR:100 bpm ECG Measurements Heart Rate 100 AXES DC 180 P 66 QRSd 162 QRS -6 QT 388 T 146 QTc 500 Conclusion Sinus rhythm with fusion complexes Left bundle branch block Abnormal ECG Electronically signed by : Royer Parrish MD 04/11/2021 22:27:44
[2021-04-11 01:05] LABS: ABG Base Excess -11.3 mmol/L (-2.4-2.3); ABG HCO3 15.4 mmhg (22.0-26.0); ABG Oxygen Saturation 99 % (90-100); ABG PCO2 32.9 mmhg (35.0-45.0); ABG PH 7.29 mmol/L (7.35-7.45); ABG PO2 230.2 mmhg (80-100); ABG TCO2 16.4 mmhg (23-27)
[2021-04-11 01:08] LABS: Allen's Test Acceptable; Oxygen 80% %; PEEP 10; Source Right Radial; Tidal Volume 385; Vent Rate 14
--- NOTE | 2021-04-11 02:32 | PC.NURSE ---
pt turned to left side at this time
[2021-04-11 02:49] LABS: Troponin I 8.64 ng/ml (0.00-0.034)
[2021-04-11 03:04] LABS: Reflex Lactic Add Lactic Reflex
--- NOTE | 2021-04-11 03:43 | PC.NURSE ---
patient up to floor via stretcher.
[2021-04-11 04:07] LABS: Lactic Acid Follow Up (RFLX 1) 3.5 mmol/L (0.7-2.1)
--- NOTE | 2021-04-11 04:42 | PC.NURSE ---
Report taken from LOU Pimentel.
--- NOTE | 2021-04-11 04:42 | PC.NURSE ---
PT is able to follow commands. Resting comfortably. Propofol @ 50mcg/min. An draining clear yellow urine. Vent setting are 7.5 ETT, 23 @ lip, FiO2 of 30%, TV 450, RR 14, PEEP 10. O2 sat 100%. Pt has 1+ edema to BLE, right leg has dressing for lymphedema. Right foot has a small ulceration in the back of the heel. Lungs note crackles throughout. Bowel sounds active, pt had small BM x1. Vitals have been stable, BP 122/72, HR 93, O2 100, Temp 99.0. No concerns at this time
--- NOTE | 2021-04-11 04:54 | PC.NURSE ---
unable to complete med rec, pt family unaware of dosages.
[2021-04-11 05:32] LABS: Reflex Lactic (2 hrs) Add Lactic Reflex
[2021-04-11 05:44] LABS: Basophils % 0.1 % (0.1-2.0); Eosinophils % 0.1 % (0.1-12.0); Hematocrit 32.3 % (37.0-47.0); Lymphocytes # 0.8 K/mm3 (0.7-4.5); Lymphocytes % 5.5 % (10-50); Mean Corpuscular HGB Conc 32.3 g/dL (31.8-35.4); Mean Corpuscular Hemoglobin 31.3 pg (27.0-31.2); Mean Corpuscular Volume 96.9 fl (81-99); Monocytes # 0.4 K/mm3 (0.1-1.0); Monocytes % 2.8 % (1.7-9.3); Neutrophils # 12.5 K/mm3 (1.8-7.8); Neutrophils % 91.4 % (37.0-80.0); Platelet Count 183 K/mm3 (142-424); Red Blood Count 3.33 M/mm3 (4.20-5.40); Red Cell Distribution Width 13.6 % (11.5-17.5); White Blood Count 13.7 K/mm3 (4.8-10.8)
[2021-04-11 05:47] LABS: Lactic Acid Follow up (RFLX 2) 1.8 mmol/L (0.7-2.1)
[2021-04-11 05:50] LABS: Chloride 109 mmol/L (98-107); MANUAL DIFFERENTIAL MANUAL DIFFERENTIAL (MANUAL DIFF); Potassium 3.8 mmoL/L (3.5-5.1); Sodium 139 mmol/L (136-145)
[2021-04-11 05:53] LABS: Anion Gap 14.8 mEq/L (5-15); Blood Urea Nitrogen 30 mg/dl (7-17); Calcium 8.2 mg/dl (8.4-10.2); Carbon Dioxide 19 mmol/L (22.0-30.0); Creatinine Clearance Estimated 55 mL/min (50-200); Estimated Glomerular Filt Rate 34 ml/min (>60); GFR (African American) 41 ML/MIN (>60); Glucose 335 mg/dl (74-100)
[2021-04-11 05:58] LABS: Hemoglobin 10.6 g/dL (12.2-16.2)
[2021-04-11 06:20] LABS: Lymphocytes % 4 % (10-50); Monocytes % 3 % (2-9); Neutrophils % 93 % (42-76); Total Cells Counted 100
[2021-04-11 06:21] LABS: Hypochromasia 1+; Macrocytosis 1+; Platelet Estimate Normal
[2021-04-11 06:25] LABS: POC Glucose,Bedside 351 (70-110)
--- NOTE | 2021-04-11 07:00 | XR_ITS ---
PROCEDURE INFORMATION: Exam: XR Chest Exam date and time: 04/11/2021 7:00 AM Age: 70 years old Clinical indication: Other: Resp failure TECHNIQUE: Imaging protocol: XR of the chest. Views: 1 view. COMPARISON: CR XR CHEST PORTABLE 04/10/2021 11:18 PM FINDINGS: Tubes, catheters and devices: Endotracheal tube remains in place with the tip above the adonay. There are sternal wires consistent with previous sternotomy incision. Lungs: There has been improvement in the pulmonary vascular congestion and bilateral airspace disease. Pleural spaces: Unremarkable. No pleural effusion. No pneumothorax. Heart/Mediastinum: Unremarkable. No cardiomegaly. Bones/joints: There is scoliosis with degenerative changes of the spine. IMPRESSION: There has been improvement in the pulmonary vascular congestion and bilateral airspace disease.
[2021-04-11 07:09] LABS: ABG Base Excess -3.2 mmol/L (-2.4-2.3); ABG HCO3 21.2 mmhg (22.0-26.0); ABG Oxygen Saturation 99 % (90-100); ABG PCO2 32.6 mmhg (35.0-45.0); ABG PH 7.43 mmol/L (7.35-7.45); ABG TCO2 22.2 mmhg (23-27)
[2021-04-11 07:14] LABS: Allen's Test Acceptable; Oxygen 30 %; PEEP 10; Source Left Radial; Tidal Volume 450; Vent Rate 14
--- NOTE | 2021-04-11 08:00 | CA_ITS ---
APPROVED REPORT EXAM: Comprehensive 2D, Doppler, and color-flow Echocardiogram Burner Technician: Emerita Lozano RT(R) Ht: 5 ft 3 in Wt: 225lbs BSA: 2.03 BP: 177/100 mmHg Indications: resp failure, HTN, SOB, hyperlipidemia, nonstemi, septic shock, pneumonia, CAD, hx OK, CABG, EF 35-40% on echo 07/24/20, patient currently intubated. Echo Enhancing Agent Indication: Endocardial border delineation Agent(s) / Amount(s) Used: Definity 2 cc 2D Dimensions LVOT 1.96 cm (M/F) 1.5-2.5 M-Mode Dimensions RVDd 2.68 cm (0.9-2.6) LA Diam 4.66 cm (1.9-4.0) LVDd 6.15 cm (3.5-5.7) Ao Diam 2.87 cm (2.0-3.7) LVDs 5.69 cm (3.5-5.7) IVSd 0.72 cm (0.6-1.1) PWd 0.64 cm (0.6-1.1) EF (Teich) 16.30% FS 7.50% EDV (Teich) 190.40 mL ESV (Teich) 159.40 mL LV Diastology MED E' 6.80 (< 7 cm/sec) LAT E' 5.70 (<10 cm/sec) Tricuspid Valve TR P. Velocity 266.00 cm/s RAP Estimate 15.00 mmHg RVSP 43.30 mmHg Left Ventricle Technically difficult study because of the patient factors and poor acoustic windows, Definity contrast was utilized to delineate the endocardial surfaces. Left atrium is mildly enlarged, left ventricle is mildly dilated, there is severe reduced left ventricular systolic function, visually estimated ejection fraction 20%, there is marked hypo to akinesis involving mid to distal septum, anterior, anterior apical and apical wall, there is no left ventricular thrombus seen, grade 1 diastolic dysfunction seen without tissue Doppler evidence of raise left atrial pressure. Doppler evidence of raise left ventricular end-diastolic pressure seen. Right Ventricle Right atrium and right ventricle are mildly enlarged with normal contractility. Aortic Valve Aortic valve is thickened and calcified without aortic stenosis or aortic insufficiency. Mitral Valve Mitral valve is grossly normal, there is mild mitral regurgitation. Tricuspid Valve Tricuspid valve is grossly normal, there is mild tricuspid regurgitation, calculated right ventricular systolic pressure is 43 mmHg. Pulmonic Valve Pulmonic valve is poorly visualized. Great Vessels Aortic root is normal size. Pericardium No significant pericardial effusion noted. Conclusion 1. Technically difficult study because of the patient factors and poor acoustic windows, left atrium is mildly enlarged, dilated left ventricle with severe reduced left ventricular systolic function, visually estimated ejection fraction 20% with segmental wall motion abnormality described above, there is no left ventricular thrombus seen. Grade 1 diastolic dysfunction seen, Doppler evidence of raise left ventricular end-diastolic pressure. 2. Mild mitral and tricuspid regurgitation, calculated right ventricular systolic pressure is 43 mmHg. 3. No significant pericardial effusion noted. Electronically signed by : Erik Martinez MD 04/12/2021 10:14:11
--- NOTE | 2021-04-11 08:18 | HMH.PHAVTE ---
[facility] Pharmacy VTE Monitoring - Patient Demographics Admission date: 04/11/21 Report Date: 04/11/21 Time: 08:18 Allergies/Adverse Reactions: Patient Allergies fentanyl [FENTANYL] Allergy (Unknown, Verified 04/04/21 13:48) latex [LATEX] Allergy (Unknown, Verified 04/04/21 13:48) codeine Adverse Reaction (Unknown, Verified 04/04/21 13:48) Height: 1.6 m Weight: 102.058 kg Patient Problems: Current Active Problems Respiratory failure requiring intubation (Acute) CAP (community acquired pneumonia) (Acute) Severe sepsis with acute organ dysfunction (Acute) Septic shock (Acute) Non-STEMI (non-ST elevated myocardial infarction) (Acute) Left bundle branch block (LBBB) (Acute) CHF (congestive heart failure) (Chronic) - VTE Risk Labs: VTE Related Lab Results Hgb 10.6 g/dL (12.2-16.2) L D 04/11/21 05:15 Hct 32.3 % (37.0-47.0) L 04/11/21 05:15 Plt Count 183 K/mm3 (142-424) D 04/11/21 05:15 BUN 30 mg/dl (7-17) H 04/11/21 05:15 Creatinine 1.50 mg/dl (0.52-1.04) H 04/11/21 05:15 Estimated Creat Clear 55 mL/min (50-200) 04/11/21 05:15 Was VTE Risk Assessment Performed: Yes VTE Score: 7 VTE Risk Level: Moderate Risk Clinical Trial Participant: No - Prophylaxis VTE Prophylaxis Ordered?: Yes Types of VTE Prophylaxis: TEDS Knee High
--- NOTE | 2021-04-11 09:06 | HMH.PULMCON ---
*Admission Date: 04/11/21 *Reason for consult:: Acute hypoxic respiratory failure *History of present illness: Ms. Marie is a 70-year-old female with history of diabetes, CKD, CHF presented to the emergency department with worsening mentation and confusion also found to be in hypoxic respiratory failure eventually needing intubation and mechanical ventilatory support and pulmonary was called for further management. [facility] History Medical History: Reports:: Congestive Heart Failure, Coronary Artery Disease, Diabetes Mellitus Type 2, Hyperlipidemia, Hypertension, Myocardial Infarction, Osteoporosis Denies:: Cancer, Diabetes Mellitus Type 1, Internal Pacemaker, MRSA, Seizures *Have you ever received a pneumonia vaccine?: Yes *Have you received a flu vaccine this season?: Yes Other Medical History: Reports: Anemia, Arthritis, Cataracts, Hoarseness, Osteoporosis, Sinus Problems. Denies: Blood Transfusion Reaction Laterality Cases: Right: Breast Biopsy Other Surgeries: Yes: Cardiac Catheterization, Cardiac Surgery, Cholecystectomy, Colonoscopy, Coronary Stent, Dilation and Curettage, Open Heart Surgery, Tubal Ligation, Other. No: Pacemaker Amputation: Yes (right great toe) Fractures: No - *Social History Last grade of school completed: High school graduate Smoking Status: Never smoker Alcohol Intake: never Alcohol Intake Frequency:: other Substance Use Type: denies use *Occupational Status:: retired, disabled Housing: house Household Members: family *Travel in the last 8 weeks: None Family Hx:: Coronary Artery Disease, Heart Attack ROS - Review of Systems Review of systems:: unable to obtain Intubated and sedated Meds Home Medications Medication Instructions Recorded Confirmed Type aspirin 81 mg tablet,delayed 81 mg PO DAILY 09/17/17 04/10/21 History release clopidogrel 75 mg tablet 75 mg PO DAILY 09/17/17 04/10/21 History ferrous sulfate 142 mg (45 mg 142 mg PO DAILY tab 09/17/17 04/10/21 History iron) tablet,extended release furosemide 40 mg tablet 40 mg PO DAILY 09/17/17 04/10/21 History sitagliptin 50 mg tablet 50 mg PO DAILY 09/17/17 04/10/21 History famotidine 20 mg tablet 20 mg PO BID tab 09/18/17 04/10/21 History gabapentin 100 mg capsule 100 mg PO TID cap 09/18/17 04/10/21 History Pravastatin Sodium [Pravachol] 80 mg PO HS 05/28/18 04/10/21 History citalopram 20 mg tablet 20 mg PO DAILY 90 Days tab 09/16/18 04/10/21 History diclofenac sodium 1 % topical gel 4 g TOPICAL QID PRN #30 g 05/10/19 04/10/21 Rx Cholecalciferol (Vitamin D3) 1,000 unit PO DAILY 05/12/19 04/10/21 History [Vitamin D3 1,000 Unit Tab] losartan 100 mg tablet 100 mg PO DAILY tab 10/04/19 04/10/21 History Omeprazole [Omeprazole 20mg 20 mg PO DAILY 01/10/20 04/10/21 History Capsule] insulin NPH-regular 70-30 U-100 20 unit SQ BID ml 02/09/20 04/10/21 History insulin 100 unit/mL subcutaneous pen mupirocin 2 % topical ointment 1 appful TOPICAL DAILY PRN 05/14/20 04/10/21 History Acetaminophen [Acetaminophen Extra 500 mg PO Q6HP PRN 07/24/20 04/10/21 History Strength] amlodipine 5 mg tablet 5 mg PO DAILY tab 10/23/20 04/10/21 History carvedilol 12.5 mg tablet 12.5 mg PO DAILY tab 10/23/20 04/10/21 History L. Acidophilus/Strept/LA P-Mo 1 each PO DAILY 01/17/21 04/10/21 History [Sherley-Q Probiotic Capsule] ondansetron 4 mg disintegrating 4 mg PO Q6H #30 tab 03/13/21 04/10/21 Rx tablet oxybutynin chloride 5 mg 5 mg PO DAILY tab 04/01/21 04/10/21 History tablet,extended release 24 hr hydroCHLOROthiazide [HCTZ 25mg 25 mg PO DAILY 04/11/21 04/11/21 History tab] Allergies Allergy/AdvReac Type Severity Reaction Status Date / Time fentanyl [FENTANYL] Allergy Unknown Verified 04/04/21 13:48 latex [LATEX] Allergy Unknown Verified 04/04/21 13:48 codeine AdvReac Unknown Verified 04/04/21 13:48 Exam - Constitutional Constitutional:: Present: no acute distress, comfortable - [facility] Exam HENMT: Pre
--- NOTE | 2021-04-11 09:06 | HMH.HP ---
*Admission Date: 04/11/21 *Chief complaint: Mental status change, fever, sepsis *History of present illness: 70-year-old white female with multiple medical problems including insulin requiring diabetes, peripheral arterial disease, chronic foot ulcers, chronic neuropathy and chronic kidney disease, who came to the emergency department early in the morning of 811 with mental status changes and confusion. Work-up in the ER was extensive including multiple laboratory testing, x-ray testing and observation as well as some fluid administration. The patient slowly improved over her time in the ER and returned to her baseline level of functioning and was discharged home yesterday in the midday hours. She went home and apparently had similar symptoms that recurred with confusion, and obtunded status. Return to the ER last night with a fever of 102-previously had been afebrile-and also with elevated white count, elevated lactate and chest x-ray showing lobar pneumonia. Patient with significant respiratory acidosis and respiratory failure, was intubated and transferred to the ICU after receiving several doses of antibiotics in the ER. [facility] History I have reviewed the patient's past medical history: Yes Medical History: Reports:: Congestive Heart Failure, Coronary Artery Disease, Diabetes Mellitus Type 2, Hyperlipidemia, Hypertension, Myocardial Infarction, Osteoporosis Denies:: Cancer, Diabetes Mellitus Type 1, Internal Pacemaker, MRSA, Seizures *Have you ever received a pneumonia vaccine?: Yes *Have you received a flu vaccine this season?: Yes Other Medical History: Reports: Anemia, Arthritis, Cataracts, Hoarseness, Osteoporosis, Sinus Problems. Denies: Blood Transfusion Reaction Laterality Cases: Right: Breast Biopsy Other Surgeries: Yes: Cardiac Catheterization, Cardiac Surgery, Cholecystectomy, Colonoscopy, Coronary Stent, Dilation and Curettage, Open Heart Surgery, Tubal Ligation, Other. No: Pacemaker Amputation: Yes (right great toe) Fractures: No - *Social History Last grade of school completed: High school graduate Smoking Status: Never smoker Alcohol Intake: never Alcohol Intake Frequency:: other Substance Use Type: denies use *Occupational Status:: retired, disabled Housing: house Household Members: family *Travel in the last 8 weeks: None Family Hx:: Coronary Artery Disease, Heart Attack Review of Systems - Review of Systems Review of systems:: unable to obtain Meds Home Medications Medication Instructions Recorded Confirmed Type aspirin 81 mg tablet,delayed 81 mg PO DAILY 09/17/17 04/10/21 History release clopidogrel 75 mg tablet 75 mg PO DAILY 09/17/17 04/10/21 History ferrous sulfate 142 mg (45 mg 142 mg PO DAILY tab 09/17/17 04/10/21 History iron) tablet,extended release furosemide 40 mg tablet 40 mg PO DAILY 09/17/17 04/10/21 History sitagliptin 50 mg tablet 50 mg PO DAILY 09/17/17 04/10/21 History famotidine 20 mg tablet 20 mg PO BID tab 09/18/17 04/10/21 History gabapentin 100 mg capsule 100 mg PO TID cap 09/18/17 04/10/21 History Pravastatin Sodium [Pravachol] 80 mg PO HS 05/28/18 04/10/21 History citalopram 20 mg tablet 20 mg PO DAILY 90 Days tab 09/16/18 04/10/21 History diclofenac sodium 1 % topical gel 4 g TOPICAL QID PRN #30 g 05/10/19 04/10/21 Rx Cholecalciferol (Vitamin D3) 1,000 unit PO DAILY 05/12/19 04/10/21 History [Vitamin D3 1,000 Unit Tab] losartan 100 mg tablet 100 mg PO DAILY tab 10/04/19 04/10/21 History Omeprazole [Omeprazole 20mg 20 mg PO DAILY 01/10/20 04/10/21 History Capsule] tramadol 50 mg tablet 50 mg PO Q6H PRN #30 tab 01/12/20 04/10/21 Rx insulin NPH-regular 70-30 U-100 20 unit SQ BID ml 02/09/20 04/10/21 History insulin 100 unit/mL subcutaneous pen metolazone 5 mg tablet 5 mg PO DAILY PRN tab 02/23/20 04/10/21 History mupirocin 2 % topical ointment 1 appful TOPICAL DAILY PRN 05/14/20 04/10/21 History Acetaminophen [Acetaminophen Extra 500 mg PO Q6HP PRN
[2021-04-11 09:21] LABS: Adenovirus,PCR Not Detected (NotDetected); Bordetella Pertussis Not Detected (NotDetected); Chlamydophila Pneumoniae, PCR Not Detected (NotDetected); Coronavirus 229E Not Detected (NotDetected); Coronavirus NL63 Not Detected (NotDetected); Coronavirus OC43 Not Detected (NotDetected); Coronovirus HKU1,PCR Not Detected (NotDetected); Human Metapneumovirus Not Detected (NotDetected); Influenza A, PCR Not Detected (NotDetected); Influenza AH1, 2009 Not Detected (NotDetected); Influenza AH1, PCR Not Detected (NotDetected); Influenza AH3,PCR Not Detected (NotDetected); Influenza B, PCR Not Detected (NotDetected); Mycoplasma Pneumoniae, PCR Not Detected (NotDetected); Parainfluenza 1, PCR Not Detected (NotDetected); Parainfluenza 2, PCR Not Detected (NotDetected); Parainfluenza 3, PCR Not Detected (NotDetected); Parainfluenza 4, PCR Not Detected (NotDetected); Respiratory Syncytial Virus Not Detected (NotDetected); Rhinovirus/Enterovirus Not Detected (NotDetected)
--- NOTE | 2021-04-11 10:13 | HMH.PHAINT ---
MEDICATION RECONCILIATION COMPLETE USING LIST FROM RECENT OFFICE VISIT AND EXTERNAL PHARMACY FILL HISTORY.
--- NOTE | 2021-04-11 10:42 | SW/DCPLANNER ---
PATIENT WAS ADMITTED TO [facility] IN STEPDOWN UNIT WITH ACUTE RESPIRATORY FAILURE AND THE NEED FOR MECHANICAL VENTILATION.. PATIENT IS FROM HOME WITH MULTIPLE COMORBIDITIES...THE PLAN IS TO RETURN BACK HOME WITH HER FAMILY WHOM ARE VERY ATTENTIVE...WILL FOLLOW PATIENT THROUGH HER ACUTE CARE STAY AND ASSIST INDICATED..
[2021-04-11 13:40] LABS: POC Glucose,Bedside 262 (70-110)
--- NOTE | 2021-04-11 15:19 | PC.NURSE ---
1335 Dr vaca ordered pt to have fentanyl for agitation/sedation. 1400 family states they would prefer another option if able bd pt has stated she has an allergy to fentanyl, yet has received it in the past. family states pt received it in the past at another facility and it was like she had a stroke when asked for details daughter states she had a blank look in her eyes but did not have anything drooping. Per dr vaca's wishes it was explained the reasoning behind the fentanyl (it stays in the patients system for a shorter amount of time) daughter was agreeable. 1442 medical assistant secretary 1515 pt hr is [address] vaca turn pt propofol drip back on.
[2021-04-11 18:24] LABS: POC Glucose,Bedside 239 (70-110)
[2021-04-11 21:25] LABS: POC Glucose,Bedside 227 (70-110)
[2021-04-12] VITALS (30 sets, daily range): BP systolic 102–174; BP diastolic 52–101; PULSE 48–148; RESP 14–44; TEMP 36.6–38.7; O2SAT 96–100; BMI 30.8
--- NOTE | 2021-04-12 01:31 | PC.NURSE ---
She is intubated and sedated. Ventilator settings: AC mode, TV 450, PEEP 5, Rate 14, FiO2 30%. Home meds are locked in her drawer. She was febrile at the beginning of the shift. She received PRN acetaminophen. Pamela boot is in place on RLE. Received a complete bed bath and linen change. Glucose was 227 at bedtime. Gag reflex is present. Vancomycin administered per MD resident surgeon for positive blood culture. Per report, her last BM was on 04/11/21. No BM thus far this shift. NSR with ST depression on telemetry. F/c patent with yellow, clear urine.
--- NOTE | 2021-04-12 04:09 | PC.NURSE ---
Pt now with Bradycardia with ST depression. Beginning to wean propofol. Glucose 168. Afebrile.
[2021-04-12 04:12] LABS: POC Glucose,Bedside 168 (70-110)
[2021-04-12 04:39] LABS: Microscopic, Urine URINE MICROSCOPIC (MICROSCOPIC)
--- NOTE | 2021-04-12 05:00 | XR_ITS ---
PROCEDURE INFORMATION: Exam: XR Chest Exam date and time: 04/12/2021 5:00 AM Age: 70 years old Clinical indication: Device placement; Ett placement (vent status); Additional info: PT intubated. TECHNIQUE: Imaging protocol: XR of the chest. Views: 1 view. COMPARISON: CR XR CHEST PORTABLE 04/11/2021 7:06 AM FINDINGS: Tubes, catheters and devices: Endotracheal tube roughly 3.8 cm above the adonay. Lungs: See Heart/Mediastinum finding. Pleural spaces: No pleural effusion or pneumothorax is seen. Heart/Mediastinum: The cardiomegaly and perihilar/basilar infiltrates have not changed significantly. Status post CABG. Bones/joints: The bones are demineralized with a remote healed fracture deformity of the left humeral neck. IMPRESSION: As discussed above.
[2021-04-12 05:01] LABS: Appearance,Urine CLEAR (Clear); Bilirubin,Urine Negative (Negative); Blood, Urine 1+ (Negative); Color,Urine YELLOW (Yellow); Glucose,Urine (UA) Negative (Negative); Ketones,Urine Negative (Negative); Leukocyte Esterase,Urine Negative (Negative); Nitrate,Urine Negative (Negative); Protein,Urine 2+ (Negative); Urobilinogen,Urine 0.2 EU/dl (0.2)
[2021-04-12 05:18] LABS: Bacteria,Urine Trace /lpf; Mucus,Urine Trace /lpf; WBC,Urine Occasional #/hpf (0-3)
[2021-04-12 06:30] LABS: ABG HCO3 22.4 mmhg (22.0-26.0); ABG Oxygen Saturation 98 % (90-100); ABG PCO2 34.8 mmhg (35.0-45.0); ABG PH 7.43 mmol/L (7.35-7.45); ABG PO2 106.7 mmhg (80-100); ABG TCO2 23.4 mmhg (23-27)
[2021-04-12 06:31] LABS: Allen's Test ACCEPTABLE; Oxygen 30 %; PEEP 5; Source R RADIAL; Tidal Volume 450; Vent Rate 14
[2021-04-12 06:37] LABS: Basophils # 0.1 K/mm3 (0-0.2); Basophils % 0.8 % (0.1-2.0); Eosinophils % 0.3 % (0.1-12.0); Hematocrit 28.1 % (37.0-47.0); Hemoglobin 9.7 g/dL (12.2-16.2); Lymphocytes # 0.9 K/mm3 (0.7-4.5); Lymphocytes % 7.9 % (10-50); Mean Corpuscular HGB Conc 34.5 g/dL (31.8-35.4); Mean Corpuscular Hemoglobin 32.6 pg (27.0-31.2); Mean Corpuscular Volume 94.5 fl (81-99); Mean Platelet Volume 7.8 fl (7.4-10.4); Monocytes # 0.8 K/mm3 (0.1-1.0); Monocytes % 6.7 % (1.7-9.3); Neutrophils # 9.7 K/mm3 (1.8-7.8); Neutrophils % 84.3 % (37.0-80.0); Platelet Count 166 K/mm3 (142-424); Red Blood Count 2.98 M/mm3 (4.20-5.40); Red Cell Distribution Width 13.5 % (11.5-17.5); White Blood Count 11.5 K/mm3 (4.8-10.8)
[2021-04-12 06:38] LABS: Chloride 112 mmol/L (98-107); Sodium 141 mmol/L (136-145)
[2021-04-12 06:41] LABS: Alanine Aminotransferase 27 U/L (12-78); Albumin Level 2.7 g/dl (3.5-5.0); Albumin/Globulin Ratio 1.1 (1.1-1.8); Alkaline Phosphatase 67 U/L (38-126); Anion Gap 8.9 mEq/L (5-15); Aspartate Amino Transferase 89 U/L (14-36); Bilirubin,Total 0.5 mg/dl (0.2-1.3); Blood Urea Nitrogen 34 mg/dl (7-17); Calcium 8.2 mg/dl (8.4-10.2); Carbon Dioxide 23 mmol/L (22.0-30.0); Creatinine Clearance Estimated 37 mL/min (50-200); Estimated Glomerular Filt Rate 30 ml/min (>60); GFR (African American) 36 ML/MIN (>60); Globulin 2.4 g/dL (1.3-3.2); Glucose 163 mg/dl (74-100); Total Protein,Serum 5.1 g/dl (6.3-8.2)
[2021-04-12 08:21] LABS: Potassium 2.9 mmoL/L (3.5-5.1)
--- NOTE | 2021-04-12 08:24 | PC.NURSE ---
critical potassium of 2.9 called from migue in lab. verified name and . notified md at this time
--- NOTE | 2021-04-12 08:38 | HMH.PHACONS ---
- Pharmacy Consult Date: 04/12/21 Time: 08:38 Referring provider: DR. [email or web address] Reason for Consult:: Age: 70 yo Serum creatinine: 1.7 mg/dL Height: 63.0 Inches Weight (kg): 78.9 Assessment: IBW (kg): 52.40 Dosing wt(kg): 78.9 Estimated Creatinine clearance (ml/min): 24.7 CRCL method: Cockcroft and Gault using ibw(default). Drug selected: Vancomycin Loading dose (mg): 0 Vd (liters): 63.1 (factor used: 0.8 L/kg) Will (hr-1): 0.025 Half life (hrs): 27.73 Recommended dose: 1250 mg Interval: 36 hrs Infusion time (hrs): 2.0 Predicted peak (mcg/mL): 32.6 Predicted trough (mcg/mL): 13.93 Total body weight is being used for vancomycin dosing. Recommendations: Patient received vancomycin 1250 mg x1 dose overnight. Recommend continuing with vancomycin 1250 mg q 36 hrs with an expected Cpeak of 32.6 mcg/ml and an expected Ctrough of 13.93 mcg/ml ----Vanco only - ignore for aminoglycosides----- CLvanco= 1.58 L/hr AUC 0-24 /FLACO Data: FLACO 0.5 mcg/mL: AUC/FLACO: 1054.9 FLACO 1.0 mcg/mL: AUC/FLACO: 527.4 --------- FLACO 1.5 mcg/mL: AUC/FLACO: 351.6 FLACO 2.0 mcg/mL: AUC/FLACO: 263.7 Thank you for the consult, will continue to follow. Allergies and ADEs:: Allergies Allergy/AdvReac Type Severity Reaction Status Date / Time fentanyl [FENTANYL] Allergy Unknown Verified 04/04/21 13:48 latex [LATEX] Allergy Unknown Verified 04/04/21 13:48 codeine AdvReac Unknown Verified 04/04/21 13:48 Home Medications:: Home Medications Medication Instructions Recorded Confirmed Type aspirin 81 mg tablet,delayed 81 mg PO DAILY 09/17/17 04/10/21 History release clopidogrel 75 mg tablet 75 mg PO DAILY 09/17/17 04/10/21 History furosemide 40 mg tablet 40 mg PO BID 09/17/17 04/11/21 History sitagliptin 50 mg tablet 50 mg PO DAILY 09/17/17 04/10/21 History famotidine 20 mg tablet 20 mg PO BID tab 09/18/17 04/10/21 History Pravastatin Sodium [Pravachol] 80 mg PO HS 05/28/18 04/10/21 History citalopram 20 mg tablet 20 mg PO DAILY 90 Days tab 09/16/18 04/10/21 History diclofenac sodium 1 % topical gel 4 g TOPICAL QID PRN #30 g 05/10/19 04/10/21 Rx Cholecalciferol (Vitamin D3) 1,000 unit PO MONTHLY 05/12/19 04/11/21 History [Vitamin D3 1,000 Unit Tab] losartan 100 mg tablet 100 mg PO DAILY tab 10/04/19 04/10/21 History Omeprazole [Omeprazole 20mg 20 mg PO BID 01/10/20 04/11/21 History Capsule] insulin NPH-regular 70-30 U-100 20 unit SQ BID ml 02/09/20 04/10/21 History insulin 100 unit/mL subcutaneous pen amlodipine 5 mg tablet 2.5 mg PO BID tab 10/23/20 04/11/21 History carvedilol 12.5 mg tablet 6.25 mg PO HS tab 10/23/20 04/11/21 History oxybutynin chloride 5 mg 5 mg PO DAILY tab 04/01/21 04/10/21 History tablet,extended release 24 hr metOLazone [Metolazone 5mg Tab] 5 mg PO DAILY 04/11/21 04/11/21 History Height: 1.6 m Weight: 78.9 kg Laboratory Results:: Laboratory Results - last 24 hr 04/11/21 09:18: Chlamy pneumoniae PCR Not detected, Adenovirus (PCR) Not detected, B. pertussis DNA (PCR) Not detected, Coronavirus OC43 (PCR) Not detected, Coronavirus HKU1 (PCR) Not detected, Coronavirus 229E (PCR) Not detected, Coronavirus NL63 (PCR) Not detected, Human Metapneumovir PCR Not detected, Influenza A (H1) PCR Not detected, Influ A (H1N1/09) PCR Not detected, Influenza A (H3) PCR Not detected, Influenza Type A (PCR) Not detected, Influenza Type B (PCR) Not detected, M. pneumoniae (PCR) Not detected, Parainfluenza 1 (PCR) Not detected, Parainfluenza 2 (PCR) Not detected, Parainfluenza 3 (PCR) Not detected, Parainfluenza 4 (PCR) Not detected, RSV (PCR) Not detected, Entero/Rhino (PCR) Not detected 04/11/21 13:33: POC Glucose 262 H 04/11/21 18:13: POC Glucose 239 H 04/11/21 21:10: POC Glucose 227 H 04/12/21 00:23: Urin
--- NOTE | 2021-04-12 08:40 | P.PN_ITS ---
Internal Medicine - PN: Subj *Date: 04/12/21 *Time: 10:34 Interval history: No acute respiratory vents overnight. Patient remains on minimal vent settings. Undergoing SBT this morning Exam - Constitutional Constitutional:: Present: no acute distress, comfortable - HENMT Exam HENMT: Present: normocephalic, atraumatic - Eye Exam Eyes:: Present: normal appearance both eyes and related structures - Neck Exam Neck:: Present: normal visual inspection - Respiratory Exam Respiratory:: Present: no respiratory distress, crackles - Cardiovascular Exam Cardiac:: Present: S1, S2 - GI Exam GI:: Present: soft - Skin Exam Skin: Present: warm, no rash - Neurological Exam Neurological: Present: awake. Absent: alert, normal cognition - Extremities Exam Extremities: Present: no cyanosis, no clubbing, edema Assessment and Plan - Assessment and plan all Dx Assessment and Plan for all problems:: #Acute hypoxic respiratory failure: #Community-acquired pneumonia: 70-year-old history of CKD CHF diabetes presented to hospital with worsening mentation and hypoxic respiratory failure Chest x-ray admission bilateral diffuse pulmonary filtrates predominantly in the lower lobes Patient noted to have mild leukocytosis. Initial blood gas showed mixed metabolic and respiratory acidosis. Her blood gas and metabolic acidosis improved and her repeat blood gas showed normal pH and her lactate was normalized at 1.8 eventually. BNP on admission significant elevated greater than 42,000. Echo from 07/20/2020 showed congestive heart failure with a reduced EF at 35- 40%. Patient's prior cultures from her right foot ulcer with blue Klebsiella Pseudomonas, Ecoli and Enterococcus faecalis. Interval update Improving infiltrates with diuresis. Patient was placed on spontaneous breathing yesterday however not extubated secondary tachypnea and tachycardia. Underwent spontaneous breathing trial this morning however patient not awake and alert. Will follow with her mentation and extubate when appropriate. w Tracheal aspirate showed less than 10 epithelial cells less than 10 WBC. Blood cultures growing Enterococcus and gram-positive cocci in pairs. Given her prior wound cultures growing similar organisms this is the likely source of patient's current sepsis and bacteremia. Will recommend following recommendations with wound care. Plan: -With respect to pneumonia patient needs community-acquired pneumonia coverage however given her positive blood cultures will recommend vancomycin and cefepime until final speciation and sensitivity results. -Follow with tracheal aspirate DuoNebs every 6 hours as needed -Continue mechanical ventilatory support, wean as tolerated,F/U SBT -Continue AnalgoSedation with Propofol and Fentanyl with CPOT gal less than or euqal to 2 and RASS goal of 0 to 1 (Deep sedation) -VAP bundle Elevate head of the bed at 30 to 45 degrees Oral care with chlorhexidne GI ulcer prophylaxis - Famotidine 20mg IV BID Chemical DVT prophylaxis #Thank you involving pulmonary in this patient care. We will continue to follow.
--- NOTE | 2021-04-12 08:55 | HMH.ACPN2 ---
Internal Medicine - PN: Subj *Date: 04/12/21 *Time: 18:36 Interval history: Patient remains sedated this morning on initial exam. N.p.o. at this time. Tolerating minimal vent settings. Daughter at bedside on rounds. Afebrile on morning rounds. Seen again this afternoon, has been on SBT trial all day, more agitated tachycardia and fever. Not able to meet criteria for extubation. Plan to resume sedation. Treating fever with Tylenol rectally. OG tube placed this afternoon. X-ray reviewed, ET tube in good position, OG in place. Exam Vital signs and Labs for Last 24 Hours: Temp Pulse Resp BP Pulse Ox 98.2 F 71 14 136/70 100 04/12/21 06:48 04/12/21 06:48 04/12/21 06:48 04/12/21 06:48 04/12/21 06:48 Laboratory Results - last 24 hr 04/11/21 09:18: Chlamy pneumoniae PCR Not detected, Adenovirus (PCR) Not detected, B. pertussis DNA (PCR) Not detected, Coronavirus OC43 (PCR) Not detected, Coronavirus HKU1 (PCR) Not detected, Coronavirus 229E (PCR) Not detected, Coronavirus NL63 (PCR) Not detected, Human Metapneumovir PCR Not detected, Influenza A (H1) PCR Not detected, Influ A (H1N1/09) PCR Not detected, Influenza A (H3) PCR Not detected, Influenza Type A (PCR) Not detected, Influenza Type B (PCR) Not detected, M. pneumoniae (PCR) Not detected, Parainfluenza 1 (PCR) Not detected, Parainfluenza 2 (PCR) Not detected, Parainfluenza 3 (PCR) Not detected, Parainfluenza 4 (PCR) Not detected, RSV (PCR) Not detected, Entero/Rhino (PCR) Not detected 04/11/21 13:33: POC Glucose 262 H 04/11/21 18:13: POC Glucose 239 H 04/11/21 21:10: POC Glucose 227 H 04/12/21 00:23: Urine Color Yellow, Urine Appearance Clear, Urine pH 6.0, Ur Specific [place] 1.020, Urine Protein 2+, Urine Glucose (UA) Negative, Urine Ketones Negative, Urine Blood 1+, Urine Nitrate Negative, Urine Bilirubin Negative, Urine Urobilinogen 0.2, Ur Leukocyte Esterase Negative, Urine RBC 5-10, Urine WBC Occasional, Urine Bacteria Trace, Urine Mucus Trace 04/12/21 04:03: POC Glucose 168 H 04/12/21 06:08: WBC 11.5 H, RBC 2.98 L, Hgb 9.7 L, Hct 28.1 L, MCV 94.5, MCH 32.6 H, MCHC 34.5, RDW 13.5, Plt Count 166, MPV 7.8, Neut % (Auto) 84.3 H, Lymph % (Auto) 7.9 L, Cataño % (Auto) 6.7, Eos % (Auto) 0.3, Baso % (Auto) 0.8, Neut # (Auto) 9.7 H, Lymph # (Auto) 0.9, Cata[place] # (Auto) 0.8, Eos # (Auto) 0.0, Baso # (Auto) 0.1 04/12/21 06:08: Sodium 141, Potassium 2.9 L* D, Chloride 112 H, Carbon Dioxide 23 D, Anion Gap 8.9, BUN 34 H, Creatinine 1.70 H, Estimated Creat Clear 37, Estimated GFR 30 L, Est GFR ( Amer) 36 L, Glucose 163 H, Calcium 8.2 L, Total Bilirubin 0.5, AST 89 H D, ALT 27, Alkaline Phosphatase 67, Total Protein 5.1 L, Albumin 2.7 L D, Globulin 2.4, Albumin/Globulin Ratio 1.1 04/12/21 07:00: Specimen Source R radial, O2 % 30, ABG pH 7.43, ABG pCO2 34.8 L, ABG pO2 106.7 H, ABG HCO3 22.4, ABG Total CO2 23.4, ABG O2 Saturation 98, ABG Base Excess -2.0, Federico Test Acceptable, Vent Rate 14, Tidal Volume 450, PEEP 5 I & O for Last 24 hours: Intake & Output 04/09/21 04/10/21 04/11/21 04/12/21 23:59 23:59 23:59 23:59 Intake Total 7293 / 5295 659 / 659 Output Total 2470 / 2530 375 / 375 Balance 2664 / 2752 284 / 284 Weight 102.058 kg 78.131 kg 78.9 kg Microbiology Reports for the Last 24 Hours: Microbiology 04/10/21 23:00 Blood Blood Culture - Preliminary 04/11/21 14:50 Sputum - Expectorated Sputum Gram Stain - Final - Constitutional moderate distress Comments: sedated - *Routine HEENT Exam Head: Present: normocephalic Eye: Present: PERRL ENT: Present: mucous membranes moist Comments: ETT in place, OG in place - *Routine Neck Exam Present: supple. Absent: lymphadenopathy - *Routine Respiratory Exam Present: patient mechanically ventilated. Absent: rhonchi - *Routine Cardiovascular Exam Present: tachycardia - *Routine Abdominal Exam Present: soft, normoactive bowel sounds. Absent: tenderness - *Routine Extremities Exam Abs
--- NOTE | 2021-04-12 09:23 | DIET.NUTRFU ---
Addendum entered by Charleen Zuniga 04/15/21 14:20: Pt extubated, recommend slow diet advancement as tolerated to ADA/MADI diet. Will add protein supplementation as needed. Weight down 8# since admission. Normal bowels. BG moderate-high- avg. 230. Renal function poor, slightly improved. Na elevated-146, K low-3.2. Receiving NaCl IVF at 50ml/h. Continuing to monitor and alter nutritional care plan as indicated. Original Note: Nutrition consult for tube feeding regimen received. Pt with CHF, CKD, DM in ARF. Increased protein needs dt wound, unknown stage dt pt having Unna boot over wound. K low, to have K runs today. Renal labs increased since admission. BG avg. 240. MAP>60. Pt currently receiving IVF at 50ml/h and ~500kcal from propofol, but this will be weaned today. Pt may have SBT/be extubated today, hold off on enteral nutrition until this is determined. Upon MD order, recommend initiating tube feeding regimen of Pulmocare at 20ml/h and advance by 10ml/h q 8h as tolerated to goal rate of 50ml/h. This regimen provides 1800kcal, 75g protein, 127g cho, 112g fat, 942ml free water. If IVF dc'd water flushes of 190ml q 6h meet additional fluid needs not provided by formula. (conservative fluids rt risk overload-1700ml total) Will monitor pt tolerance, meds, labs, fluids, fluid status to alter regimen as indicated.
--- NOTE | 2021-04-12 10:44 | PC.NURSE ---
propofol has been off since about 929.
--- NOTE | 2021-04-12 16:12 | PC.NURSE ---
dr vaca stated to keep patient sedation off and use prn fentanyl as needed. md also instructed to start an sbt in the morning around 7
[2021-04-12 16:21] LABS: POC Glucose,Bedside 214 (70-110)
--- NOTE | 2021-04-12 17:28 | XR_ITS ---
PROCEDURE INFORMATION: Exam: XR Chest Exam date and time: 04/12/2021 5:28 PM Age: 70 years old Clinical indication: Device placement; Ng tube; Additional info: Og tube placement TECHNIQUE: Imaging protocol: XR of the chest. Portable AP exam 6:07 p.m. Views: 1 view. COMPARISON: CR XR CHEST PORTABLE 04/12/2021 4:58 AM FINDINGS: Tubes, catheters and devices: Endotracheal tube remains in satisfactory position with tip approximately 3 cm above the adonay. Orogastric tube has been inserted, with tube and side port extending well below the diaphragm into the stomach, tip not visualized. Overlying pvc monitor electrodes and oxygen tubing. Lungs: Mild bilateral pulmonary interstitial prominence. Improved aeration in the both lower lungs compared with the previous exam, likely decreased vascular congestion. No focal consolidation. Pleural spaces: Trace right pleural effusion, fluid extending into the major fissure. No pneumothorax, as visualized. Heart/Mediastinum: Enlarged cardiac silhouette, unchanged. Bones/joints: Spinal degenerative changes, thoracolumbar scoliosis, multilevel disc narrowing and spondylosis. IMPRESSION: 1. Orogastric tube extends well below the diaphragm into the stomach, in satisfactory position. 2. Endotracheal tube remains in satisfactory position. 3. Improved aeration of the lower lungs compared with the prior exam from 4:50 a.m., likely decreasing vascular congestion. 4. Trace right pleural effusion. No pneumothorax. 5. Additional nonemergency and chronic findings as above.
[2021-04-12 18:15] LABS: POC Glucose,Bedside 210 (70-110)
--- NOTE | 2021-04-12 18:27 | PC.NURSE ---
spoke with lacy vaca and carley about patient status. heart rate continues to be 140s and resp rate in 30-40s. in agreement to start propofol back at a low dose of 10-15mcg/kg/min
--- NOTE | 2021-04-12 18:33 | ECG_ITS ---
APPROVED REPORT Exam: Resting ECG HR:105 bpm ECG Measurements Heart Rate 105 AXES KS 166 P 66 QRSd 150 QRS 49 QT 384 T 142 QTc 507 Conclusion Sinus tachycardia Left bundle branch block Abnormal ECG Electronically signed by : Royer Parrish MD 04/14/2021 09:00:46
[2021-04-12 19:43] LABS: Anion Gap 16.2 mEq/L (5-15); Blood Urea Nitrogen 35 mg/dl (7-17); Calcium 8.5 mg/dl (8.4-10.2); Carbon Dioxide 16 mmol/L (22.0-30.0); Chloride 115 mmol/L (98-107); Creatinine Clearance Estimated 40 mL/min (50-200); Estimated Glomerular Filt Rate 32 ml/min (>60); GFR (African American) 38 ML/MIN (>60); Glucose 230 mg/dl (74-100); Potassium 4.2 mmoL/L (3.5-5.1); Sodium 143 mmol/L (136-145)
--- NOTE | 2021-04-12 20:36 | PC.NURSE ---
Tramadol given to daughter.
[2021-04-12 20:45] LABS: POC Glucose,Bedside 220 (70-110)
--- NOTE | 2021-04-12 21:36 | PC.NURSE ---
patient has had an okay day. once sedation turned back on patient began to calm down and rest. heart rate and bp both decreased back down. daughter has been at bedside. multiple conversations with md and plan of care. did gain order for ibuprofen and one time toradol from carley. toradol was given until og tube or po intake was established. remained feverish all day. og in good position. ice packs and tylenol attempted. only under a sheet. q2 turns and oral care provided. patient remained drowsy most of shift. would open eyes to voice and respond to pain but would not stay awake. dr howe stated if patient fever comes down then tube feeds may be started otherwise hold off at this time. tolerated runs of potassium well. all ivs in l arm removed and new one placed to r forearm. has tolerated ventilator well. couple bouts of agitation that required prn fentanyl. md stated to start back propafol at low dose and start sbt around 0700.
[2021-04-13] VITALS (29 sets, daily range): BP systolic 121–165; BP diastolic 68–100; PULSE 65–110; RESP 10–29; TEMP 37.1–39.2; O2SAT 35–100; BMI 30.1
--- NOTE | 2021-04-13 06:00 | XR_ITS ---
PROCEDURE INFORMATION: Exam: XR Chest Exam date and time: 04/13/2021 6:00 AM Age: 70 years old Clinical indication: Shortness of breath and other: Pneumonia; Patient HX: Pneumonia intubated; Additional info: Mechanically ventilated TECHNIQUE: Imaging protocol: XR of the chest. Views: 1 view. COMPARISON: CR XR CHEST PORTABLE 04/12/2021 6:00 PM FINDINGS: Tubes, catheters and devices: Endotracheal tube terminates 3.8 cm above the adonay; Enteric tube courses toward the stomach Lungs: Patchy bilateral opacities in the lung bales may represent atelectasis or pneumonia. Pleural spaces: There may be small bilateral pleural effusions.. Heart/Mediastinum: Unremarkable. No cardiomegaly. Bones/joints: Median sternotomy IMPRESSION: 1. Patchy bilateral opacities in the lung bales may represent atelectasis or pneumonia. 2. There may be small bilateral pleural effusions..
[2021-04-13 06:17] LABS: POC Glucose,Bedside 247 (70-110)
[2021-04-13 06:26] LABS: Basophils # 0.1 K/mm3 (0-0.2); Basophils % 0.4 % (0.1-2.0); Eosinophils # 0.1 K/mm3 (0.0-0.4); Eosinophils % 0.4 % (0.1-12.0); Hematocrit 32.3 % (37.0-47.0); Lymphocytes % 7.5 % (10-50); Mean Corpuscular HGB Conc 33.1 g/dL (31.8-35.4); Mean Corpuscular Hemoglobin 31.4 pg (27.0-31.2); Mean Corpuscular Volume 95.1 fl (81-99); Mean Platelet Volume 8.9 fl (7.4-10.4); Monocytes # 0.7 K/mm3 (0.1-1.0); Monocytes % 5.4 % (1.7-9.3); Neutrophils % 86.3 % (37.0-80.0); Platelet Count 183 K/mm3 (142-424); Red Cell Distribution Width 13.8 % (11.5-17.5); White Blood Count 13.9 K/mm3 (4.8-10.8)
[2021-04-13 06:31] LABS: MANUAL DIFFERENTIAL MANUAL DIFFERENTIAL (MANUAL DIFF)
[2021-04-13 06:36] LABS: Chloride 113 mmol/L (98-107); Potassium 3.4 mmoL/L (3.5-5.1); Sodium 143 mmol/L (136-145)
[2021-04-13 06:38] LABS: Blood Urea Nitrogen 38 mg/dl (7-17); Creatinine Clearance Estimated 39 mL/min (50-200); Estimated Glomerular Filt Rate 32 ml/min (>60); GFR (African American) 38 ML/MIN (>60)
[2021-04-13 06:39] LABS: Alanine Aminotransferase 46 U/L (12-78); Albumin Level 3.1 g/dl (3.5-5.0); Albumin/Globulin Ratio 1.3 (1.1-1.8); Alkaline Phosphatase 75 U/L (38-126); Anion Gap 17.4 mEq/L (5-15); Aspartate Amino Transferase 127 U/L (14-36); Bilirubin,Total 1.1 mg/dl (0.2-1.3); Calcium 8.5 mg/dl (8.4-10.2); Carbon Dioxide 16 mmol/L (22.0-30.0); Globulin 2.3 g/dL (1.3-3.2); Glucose 228 mg/dl (74-100); Magnesium 1.5 mg/dl (1.6-2.3); Total Protein,Serum 5.4 g/dl (6.3-8.2)
[2021-04-13 06:50] LABS: Lymphocytes % 12 % (10-50); Neutrophils % 81 % (42-76); Platelet Estimate Normal; RBC Morphology Normal; Total Cells Counted 100
[2021-04-13 07:03] LABS: Hemoglobin 10.7 g/dL (12.2-16.2)
[2021-04-13 07:15] LABS: ABG HCO3 17.5 mmhg (22.0-26.0); ABG Oxygen Saturation 88 % (90-100); ABG PH 7.48 mmol/L (7.35-7.45); ABG PO2 54.9 mmhg (80-100); ABG TCO2 18.2 mmhg (23-27)
--- NOTE | 2021-04-13 07:15 | PC.NURSE ---
Pt does not follow commands nor does she localize to sternal rub. Propofol gtt currently @ 5mcg/kg/min. Propofol gtt turned OFF at this time. Dr. Gibson and Dr. Parrish made aware.
--- NOTE | 2021-04-13 07:59 | HMH.ACPN2 ---
Internal Medicine - PN: Subj *Date: 04/13/21 *Time: 08:00 Interval history: Remains intubated, sedated in the intensive care unit, had an episode of higher pressure alarming on the ventilator with apparent mucous plugging. Respiratory therapy and nursing have been able to suction and this has seemingly cleared with normal pressures on the ventilator now. Patient is otherwise sedated. Urine outputs been good. I reviewed x-rays and labs personally. Exam Vital signs and Labs for Last 24 Hours: Temp Pulse Resp BP Pulse Ox 99.7 F H 110 H 25 H 133/87 100 04/13/21 00:00 04/13/21 04:00 04/13/21 03:30 04/13/21 00:00 04/13/21 03:30 Laboratory Results - last 24 hr 04/12/21 06:08: Sodium 141, Potassium 2.9 L* D, Chloride 112 H, Carbon Dioxide 23 D, Anion Gap 8.9, BUN 34 H, Creatinine 1.70 H, Estimated Creat Clear 37, Estimated GFR 30 L, Est GFR ( Amer) 36 L, Glucose 163 H, Calcium 8.2 L, Total Bilirubin 0.5, AST 89 H D, ALT 27, Alkaline Phosphatase 67, Total Protein 5.1 L, Albumin 2.7 L D, Globulin 2.4, Albumin/Globulin Ratio 1.1 04/12/21 12:31: POC Glucose 214 H 04/12/21 17:40: POC Glucose 210 H 04/12/21 19:20: Sodium 143, Potassium 4.2 D, Chloride 115 H, Carbon Dioxide 16 L D, Anion Gap 16.2 H, BUN 35 H, Creatinine 1.60 H, Estimated Creat Clear 40, Estimated GFR 32 L, Est GFR ( Amer) 38 L, Glucose 230 H D, Calcium 8.5 04/12/21 20:28: POC Glucose 220 H 04/13/21 05:50: WBC 13.9 H, RBC 3.40 L, Hgb 10.7 L D, Hct 32.3 L, MCV 95.1, MCH 31.4 H, MCHC 33.1, RDW 13.8, Plt Count 183, MPV 8.9, Neut % (Auto) 86.3 H, Lymph % (Auto) 7.5 L, [place] % (Auto) 5.4, Eos % (Auto) 0.4, Baso % (Auto) 0.4, Neut # (Auto) 12.0 H, Lymph # (Auto) 1.0, [place] # (Auto) 0.7, Eos # (Auto) 0.1, Baso # (Auto) 0.1, Total Counted 100, Neutrophils % (Manual) 81 H, Band Neutrophils % 7.0, Lymphocytes % (Manual) 12, Platelet Estimate Normal, RBC Morphology Normal 04/13/21 05:50: Sodium 143, Potassium 3.4 L, Chloride 113 H, Carbon Dioxide 16 L, Anion Gap 17.4 H, BUN 38 H, Creatinine 1.60 H, Estimated Creat Clear 39, Estimated GFR 32 L, Est GFR ( Amer) 38 L, Glucose 228 H, Calcium 8.5, Magnesium 1.5 L, Total Bilirubin 1.1, AST 127 H D, ALT 46 D, Alkaline Phosphatase 75, Total Protein 5.4 L, Albumin 3.1 L D, Globulin 2.3, Albumin/Globulin Ratio 1.3 04/13/21 06:10: POC Glucose 247 H I & O for Last 24 hours: Intake & Output 04/10/21 04/11/21 04/12/21 04/13/21 11:59 11:59 11:59 11:59 Intake Total 4128 / 4274 1768 / 1792 1496 / 1496 Output Total 1250 / 1550 2032 / 2090 1668 / 1668 Balance 2878 / 2724 -264 / -298 -172 / -172 Weight 225 lb 173 lb 15.115 oz 170 lb 3.15 oz Microbiology Reports for the Last 24 Hours: Microbiology 04/10/21 23:00 Blood Blood Culture - Preliminary Narrative: Patient is comfortable on sedation. Oropharynx clear, OG and ET tubes are in good position. Lungs have rhonchorous sounds bilaterally. Heart rate regular. Blood pressure is slightly high after suctioning. Abdomen soft nontender. Extremities are mottled in her legs consistent with her prior peripheral vascular disease but are warm. An catheter draining clear yellow urine. Assessment and Plan (1) CAP (community acquired pneumonia) Status: Acute Qualifiers: Laterality: right Lung location: lower lobe of lung Qualified Code(s): J18.9 - Pneumonia, unspecified organism Category: Medical Code(s): J18.9 - Pneumonia, unspecified organism (2) Left bundle branch block (LBBB) Status: Chronic Category: Medical Code(s): I44.7 - Left bundle-branch block, unspecified (3) Non-STEMI (non-ST elevated myocardial infarction) Status: Acute Category: Medical Code(s): I21.4 - Non-ST elevation (NSTEMI) myocardial infarction (4) Respiratory failure requiring intubation Status: Acute Category: Medical Code(s): J96.90 - Respiratory failure, unspecified, unspecified whether with hypoxia or hypercapnia (5) Severe sepsis with
[2021-04-13 08:09] LABS: Allen's Test Patient Unable; Oxygen 21 %; PEEP 5; Tidal Volume 450; Vent Rate 14
[2021-04-13 08:10] LABS: Source Left Radial
[2021-04-13 09:27] LABS: Vancomycin,Trough 12.7 ug/mL (5.0-10.0)
[2021-04-13 11:30] LABS: POC Glucose,Bedside 226 (70-110)
--- NOTE | 2021-04-13 13:09 | PC.NURSE ---
pt is agitated, restless, and RR 30s. Vent bucking observed. Propofol gtt turned back on @ 10mcg/kg/min (4.6mL/hr).
[2021-04-13 14:12] LABS: Vancomycin,Peak 36.3 ug/ml (11-39)
--- NOTE | 2021-04-13 15:34 | HMH.PHACONS ---
- Pharmacy Consult Date: 04/13/21 Time: 15:34 Referring provider: DR. ZEPEDA Reason for Consult:: VANCOMYCIN LEVELS Allergies and ADEs:: Allergies Allergy/AdvReac Type Severity Reaction Status Date / Time fentanyl [FENTANYL] Allergy Unknown Verified 04/04/21 13:48 latex [LATEX] Allergy Unknown Verified 04/04/21 13:48 codeine AdvReac Unknown Verified 04/04/21 13:48 Home Medications:: Home Medications Medication Instructions Recorded Confirmed Type aspirin 81 mg tablet,delayed 81 mg PO DAILY 09/17/17 04/10/21 History release clopidogrel 75 mg tablet 75 mg PO DAILY 09/17/17 04/10/21 History furosemide 40 mg tablet 40 mg PO BID 09/17/17 04/11/21 History sitagliptin 50 mg tablet 50 mg PO DAILY 09/17/17 04/10/21 History famotidine 20 mg tablet 20 mg PO BID tab 09/18/17 04/10/21 History Pravastatin Sodium [Pravachol] 80 mg PO HS 05/28/18 04/10/21 History citalopram 20 mg tablet 20 mg PO DAILY 90 Days tab 09/16/18 04/10/21 History diclofenac sodium 1 % topical gel 4 g TOPICAL QID PRN #30 g 05/10/19 04/10/21 Rx Cholecalciferol (Vitamin D3) 1,000 unit PO MONTHLY 05/12/19 04/11/21 History [Vitamin D3 1,000 Unit Tab] losartan 100 mg tablet 100 mg PO DAILY tab 10/04/19 04/10/21 History Omeprazole [Omeprazole 20mg 20 mg PO BID 01/10/20 04/11/21 History Capsule] insulin NPH-regular 70-30 U-100 20 unit SQ BID ml 02/09/20 04/10/21 History insulin 100 unit/mL subcutaneous pen amlodipine 5 mg tablet 2.5 mg PO BID tab 10/23/20 04/11/21 History carvedilol 12.5 mg tablet 6.25 mg PO HS tab 10/23/20 04/11/21 History oxybutynin chloride 5 mg 5 mg PO DAILY tab 04/01/21 04/10/21 History tablet,extended release 24 hr metOLazone [Metolazone 5mg Tab] 5 mg PO DAILY 04/11/21 04/11/21 History Height: 1.6 m Weight: 77.2 kg Laboratory Results:: Laboratory Results - last 24 hr 04/12/21 12:31: POC Glucose 214 H 04/12/21 17:40: POC Glucose 210 H 04/12/21 19:20: Sodium 143, Potassium 4.2 D, Chloride 115 H, Carbon Dioxide 16 L D, Anion Gap 16.2 H, BUN 35 H, Creatinine 1.60 H, Estimated Creat Clear 40, Estimated GFR 32 L, Est GFR ( Amer) 38 L, Glucose 230 H D, Calcium 8.5 04/12/21 20:28: POC Glucose 220 H 04/13/21 05:50: WBC 13.9 H, RBC 3.40 L, Hgb 10.7 L D, Hct 32.3 L, MCV 95.1, MCH 31.4 H, MCHC 33.1, RDW 13.8, Plt Count 183, MPV 8.9, Neut % (Auto) 86.3 H, Lymph % (Auto) 7.5 L, [place] % (Auto) 5.4, Eos % (Auto) 0.4, Baso % (Auto) 0.4, Neut # (Auto) 12.0 H, Lymph # (Auto) 1.0, [place] # (Auto) 0.7, Eos # (Auto) 0.1, Baso # (Auto) 0.1, Total Counted 100, Neutrophils % (Manual) 81 H, Band Neutrophils % 7.0, Lymphocytes % (Manual) 12, Platelet Estimate Normal, RBC Morphology Normal 04/13/21 05:50: Sodium 143, Potassium 3.4 L, Chloride 113 H, Carbon Dioxide 16 L, Anion Gap 17.4 H, BUN 38 H, Creatinine 1.60 H, Estimated Creat Clear 39, Estimated GFR 32 L, Est GFR ( Amer) 38 L, Glucose 228 H, Calcium 8.5, Magnesium 1.5 L, Total Bilirubin 1.1, AST 127 H D, ALT 46 D, Alkaline Phosphatase 75, Total Protein 5.4 L, Albumin 3.1 L D, Globulin 2.3, Albumin/Globulin Ratio 1.3 04/13/21 06:00: Specimen Source Left radial, O2 % 21, ABG pH 7.48 H, ABG pCO2 24.0 L, ABG pO2 54.9 L, ABG HCO3 17.5 L, ABG Total CO2 18.2 L, ABG O2 Saturation 88 L, ABG Base Excess -6.0 L, Federico Test Patient unable, Vent Rate 14, Tidal Volume 450, PEEP 5 04/13/21 06:10: POC Glucose 247 H 04/13/21 08:32: Vancomycin Trough 12.7 H 04/13/21 11:20: POC Glucose 226 H 04/13/21 13:24: Vancomycin Peak 36.3 Medical History: Reports:: Congestive Heart Failure, Coronary Artery Disease, Diabetes Mellitus Type 2, Hyperlipidemia, Hypertension, Myocardial Infarction, Osteoporosis Denies:: Cancer, Diabetes Mellitus Type 1, Internal Pacemaker, MRSA, Seizures Assessment and Plan (1) CAP (community acquired pneumonia) Status: Acute Qualifiers: Laterality: right Lung location: lower lobe of lung Qualified Code(s): J18.9 - Pneumonia, unspecified organism Category: Medi
--- NOTE | 2021-04-13 16:00 | PC.NURSE ---
right lower leg unna boot removed. Daughter reports that pt gets new unna boot placed twice/wk by Suki in therapy at [facility]. Pt has a skin tear on right medial lower leg that measures 2cmx1.5cm. Vaseline gauze placed over wound, followed by 4x4 gauze, and kerlix. Right heel has a chronic hole that measures [id number]. Wound is packed with aprox 1cm of packing and has purulent drainage. Packing removed and wound bed cultured. Daughter gave consent to take pictures, which are now on pt's chart. Small bandaid placed over the hole and foot wrapped with kerlix.
--- NOTE | 2021-04-13 16:42 | PC.WOUNDNOTE ---
right heel 6boy4cm hole right heel right medial lower leg skin tear 2cmx1.5cm right medial lower leg skin tear
[2021-04-13 17:29] LABS: POC Glucose,Bedside 140 (70-110)
[2021-04-13 20:52] LABS: POC Glucose,Bedside 140 (70-110)
[2021-04-14] VITALS (29 sets, daily range): BP systolic 129–169; BP diastolic 68–92; PULSE 50–108; RESP 14–29; TEMP 36.7–37.6; O2SAT 100; BMI 29.3
[2021-04-14 05:27] LABS: POC Glucose,Bedside 162 (70-110)
--- NOTE | 2021-04-14 06:00 | XR_ITS ---
PROCEDURE INFORMATION: Exam: XR Chest Exam date and time: 04/14/2021 6:00 AM Age: 70 years old Clinical indication: Device placement; Ett placement (vent status); Patient HX: PT on ventilator pneumonia; Additional info: Mechanical ventilation TECHNIQUE: Imaging protocol: XR of the chest. Views: 1 view. COMPARISON: CR XR CHEST PORTABLE 04/13/2021 5:53 AM FINDINGS: Tubes, catheters and devices: Endotracheal tube remains in place with the tip above the adonay. Nasogastric tube remains in place. There are sternal wires consistent with previous sternotomy incision. Lungs: There continue to be opacities in both lungs, unchanged. Pleural spaces: Unremarkable. No pleural effusion. No pneumothorax. Heart/Mediastinum: Unremarkable. No cardiomegaly. Bones/joints: There is scoliosis with degenerative changes of the spine. IMPRESSION: Stable chest.
[2021-04-14 06:13] LABS: ABG Base Excess -3.6 mmol/L (-2.4-2.3); ABG HCO3 20.7 mmhg (22.0-26.0); ABG Oxygen Saturation 98 % (90-100); ABG PCO2 31.7 mmhg (35.0-45.0); ABG PH 7.43 mmol/L (7.35-7.45); ABG PO2 143.5 mmhg (80-100); ABG TCO2 21.7 mmhg (23-27)
[2021-04-14 06:20] LABS: Allen's Test Patient Unable; Oxygen 35 %; PEEP 5; Source Left Radial; Tidal Volume 420; Vent Rate 14
[2021-04-14 06:32] LABS: Basophils % 0.1 % (0.1-2.0); Eosinophils % 0.2 % (0.1-12.0); Hemoglobin 9.7 g/dL (12.2-16.2); Lymphocytes # 0.8 K/mm3 (0.7-4.5); Lymphocytes % 7.7 % (10-50); Mean Corpuscular HGB Conc 33.5 g/dL (31.8-35.4); Mean Corpuscular Hemoglobin 31.9 pg (27.0-31.2); Mean Corpuscular Volume 95.3 fl (81-99); Mean Platelet Volume 8.6 fl (7.4-10.4); Monocytes # 0.5 K/mm3 (0.1-1.0); Monocytes % 4.6 % (1.7-9.3); Neutrophils # 9.4 K/mm3 (1.8-7.8); Neutrophils % 87.4 % (37.0-80.0); Platelet Count 178 K/mm3 (142-424); Red Blood Count 3.04 M/mm3 (4.20-5.40); Red Cell Distribution Width 13.7 % (11.5-17.5); White Blood Count 10.8 K/mm3 (4.8-10.8)
[2021-04-14 06:35] LABS: Hematocrit 28.9 % (37.0-47.0)
[2021-04-14 06:37] LABS: MANUAL DIFFERENTIAL MANUAL DIFFERENTIAL (MANUAL DIFF)
[2021-04-14 06:43] LABS: Eosinophils % 1 % (0-3); Hypochromasia 1+; Lymphocytes % 7 % (10-50); Neutrophils % 88 % (42-76); Platelet Estimate Normal; Total Cells Counted 100
[2021-04-14 06:51] LABS: Chloride 113 mmol/L (98-107)
[2021-04-14 06:52] LABS: Sodium 145 mmol/L (136-145)
[2021-04-14 06:54] LABS: Alanine Aminotransferase 43 U/L (12-78); Aspartate Amino Transferase 85 U/L (14-36); Blood Urea Nitrogen 44 mg/dl (7-17); Creatinine Clearance Estimated 32 mL/min (50-200); Estimated Glomerular Filt Rate 26 ml/min (>60); GFR (African American) 31 ML/MIN (>60)
[2021-04-14 06:55] LABS: Albumin Level 2.9 g/dl (3.5-5.0); Albumin/Globulin Ratio 1.2 (1.1-1.8); Alkaline Phosphatase 67 U/L (38-126); Anion Gap 14.2 mEq/L (5-15); Bilirubin,Total 0.7 mg/dl (0.2-1.3); Calcium 8.5 mg/dl (8.4-10.2); Carbon Dioxide 20 mmol/L (22.0-30.0); Globulin 2.5 g/dL (1.3-3.2); Glucose 178 mg/dl (74-100); Total Protein,Serum 5.4 g/dl (6.3-8.2)
[2021-04-14 06:57] LABS: Potassium 2.2 mmoL/L (3.5-5.1)
--- NOTE | 2021-04-14 08:54 | HMH.ACPN2 ---
Internal Medicine - PN: Subj *Date: 04/14/21 *Time: 08:54 Interval history: No major changes overnight. Patient remains sedated, intubated in the intensive care unit. Nurses report that her pulse rate and blood pressure has been stable overnight. She had a couple of PVCs but nothing sustained. Exam Vital signs and Labs for Last 24 Hours: Temp Pulse Resp BP Pulse Ox 98.8 F 87 17 167/85 H 100 04/14/21 08:00 04/14/21 08:00 04/14/21 08:00 04/14/21 08:00 04/14/21 08:00 Laboratory Results - last 24 hr 04/13/21 08:32: Vancomycin Trough 12.7 H 04/13/21 11:20: POC Glucose 226 H 04/13/21 13:24: Vancomycin Peak 36.3 04/13/21 17:21: POC Glucose 140 H 04/13/21 20:44: POC Glucose 140 H 04/14/21 05:20: POC Glucose 162 H 04/14/21 06:00: Specimen Source Left radial, O2 % 35, ABG pH 7.43, ABG pCO2 31.7 L, ABG pO2 143.5 H, ABG HCO3 20.7 L, ABG Total CO2 21.7 L, ABG O2 Saturation 98, ABG Base Excess -3.6 L, Federico Test Patient unable, Vent Rate 14, Tidal Volume 420, PEEP 5 04/14/21 06:05: WBC 10.8, RBC 3.04 L, Hgb 9.7 L, Hct 28.9 L, MCV 95.3, MCH 31.9 H, MCHC 33.5, RDW 13.7, Plt Count 178, MPV 8.6, Neut % (Auto) 87.4 H, Lymph % (Auto) 7.7 L, [place] % (Auto) 4.6, Eos % (Auto) 0.2, Baso % (Auto) 0.1, Neut # (Auto) 9.4 H, Lymph # (Auto) 0.8, [place] # (Auto) 0.5, Eos # (Auto) 0.0, Baso # (Auto) 0.0, Total Counted 100, Neutrophils % (Manual) 88 H, Band Neutrophils % 4.0, Lymphocytes % (Manual) 7 L, Eosinophils % (Manual) 1, Platelet Estimate Normal, Hypochromasia 1+ 04/14/21 06:05: Sodium 145, Potassium 2.2 L* D, Chloride 113 H, Carbon Dioxide 20 L D, Anion Gap 14.2, BUN 44 H, Creatinine 1.90 H, Estimated Creat Clear 32, Estimated GFR 26 L, Est GFR ( Amer) 31 L, Glucose 178 H, Calcium 8.5, Total Bilirubin 0.7, AST 85 H D, ALT 43, Alkaline Phosphatase 67, Total Protein 5.4 L, Albumin 2.9 L, Globulin 2.5, Albumin/Globulin Ratio 1.2 I & O for Last 24 hours: Intake & Output 04/11/21 04/12/21 04/13/21 04/14/21 11:59 11:59 11:59 11:59 Intake Total 4128 / 4274 1768 / 1792 1797 / 1797 1937 / 1937 Output Total 1250 / 1550 2032 / 2090 2593 / 2768 2740 / 2740 Balance 2878 / 2724 -264 / -298 -796 / -971 -803 / -803 Weight 225 lb 173 lb 15.115 oz 170 lb 3.15 oz 165 lb 9 oz Microbiology Reports for the Last 24 Hours: Microbiology 04/11/21 14:50 Sputum - Expectorated Sputum Gram Stain - Final 04/11/21 14:50 Sputum - Expectorated Sputum Sputum Culture - Final Normal Respiratory Sherley 04/10/21 23:00 Blood Blood Culture - Final Enterococcus faecalis 04/13/21 16:00 Foot,Right Gram Stain - Final Narrative: Patient is intubated, sedated. OG and ET tubes appear to be in good position. Blood pressure acceptable, pulse rate normal, occasional PVCs on monitor. Lungs have rhonchorous ventilatory sounds. Heart rate regular. Abdomen is soft, extremities are warm, they appear to have good capillary perfusion. Her distal extremities have significant pulss diminished as previously noted. No evidence of infectious wounds in the legs, previously noted amputations and wounds noted. Upper extremities with no edema. Neurologic exam compromised by her intubated and sedated status. Oropharynx clear except for ET tube. An catheter is draining clear yellow urine. Urine output has been acceptable Assessment and Plan (1) CAP (community acquired pneumonia) Status: Acute Qualifiers: Laterality: right Lung location: lower lobe of lung Qualified Code(s): J18.9 - Pneumonia, unspecified organism Category: Medical Code(s): J18.9 - Pneumonia, unspecified organism (2) Left bundle branch block (LBBB) Status: Chronic Category: Medical Code(s): I44.7 - Left bundle-branch block, unspecified (3) Non-STEMI (non-ST elevated myocardial infarction) Status: Acute Category: Medical Code(s): I21.4 - Non-ST elevation (NSTEMI) myocardial infarction (4
--- NOTE | 2021-04-14 09:27 | PC.NURSE ---
tubefeeds (Pulmocare) started @ 10mL/hr x 4hrs. Then increase rate by 10mL/hr Q8hrs until goal of 50mL/hr is reached. Order per Dr. Parrish.
--- NOTE | 2021-04-14 09:50 | PC.NURSE ---
received call from Dr. Gibson. He ordered the following: Potassium 60mEq IV x 1, repeat BMP 2hrs after Potassium completed, SBT @ 12pm (Propofol gtt to be turned OFF while on SBT), and SBT tomorrow at 5am. Potassium order faxed to pharmacy, BMP order entered, and RT (Liz) updated.
[2021-04-14 11:16] LABS: POC Glucose,Bedside 154 (70-110)
--- NOTE | 2021-04-14 12:00 | PC.NURSE ---
RT Michelle) @ BS and switched vent to SBT. Propofol gtt turned OFF @ this time
--- NOTE | 2021-04-14 12:00 | PC.NURSE ---
Placed Pt on Spontaneous Breathing Trial per Dr. Gibson as tolerated. Pt stable at this time, no respiratory distress noted. Will continue to monitor.
--- NOTE | 2021-04-14 15:15 | PC.NURSE ---
pt bucking the vent and attempting to pull @ ET tube. Propofol gtt increased to 50mcg/kg/min
--- NOTE | 2021-04-14 15:55 | PC.NURSE ---
pt bucking the vent and attempting to pull @ ET tube. Propofol gtt increased to 60mcg/kg/min. Spoke to Dr. Parrish, who ordered Versed 2mg IV Q2hrs prn. If we are giving Versed 2mg IV Q2hs for several doses, then start a Versed gtt. Order for prn Versed faxed to pharmacy. Dr. Gibson updated that pt has been intubated.
--- NOTE | 2021-04-14 16:02 | PC.NURSE ---
tubefeed rate increased to 20mL/hr.
--- NOTE | 2021-04-14 17:47 | PC.NURSE ---
RR 40s, HR 120s, and pt gagging. RT notified and pt placed back on a vent rate. Propofol turned back on @ 10mcg/kg/min. Pt is A&O and following commands.
--- NOTE | 2021-04-14 18:28 | PC.NURSE ---
spoke to Dr. Gibson. He ordered an SBT in the AM. Updated RT (Will)
[2021-04-14 18:37] LABS: POC Glucose,Bedside 198 (70-110)
[2021-04-14 20:25] LABS: Anion Gap 15.2 mEq/L (5-15); Blood Urea Nitrogen 44 mg/dl (7-17); Carbon Dioxide 17 mmol/L (22.0-30.0); Chloride 115 mmol/L (98-107); Creatinine Clearance Estimated 35 mL/min (50-200); Estimated Glomerular Filt Rate 30 ml/min (>60); GFR (African American) 36 ML/MIN (>60); Glucose 208 mg/dl (74-100); Potassium 3.2 mmoL/L (3.5-5.1); Sodium 144 mmol/L (136-145)
[2021-04-14 22:25] LABS: POC Glucose,Bedside 206 (70-110)
[2021-04-15] VITALS (30 sets, daily range): BP systolic 136–164; BP diastolic 55–100; PULSE 50–104; RESP 16–36; TEMP 36.5–37.4; O2SAT 100; BMI 29.1
--- NOTE | 2021-04-15 02:34 | ECG_ITS ---
APPROVED REPORT Exam: Resting ECG HR:82 bpm ECG Measurements Heart Rate [address] 170 P 47 QRSd 152 QRS -29 QT 432 T 152 QTc 504 Conclusion Normal sinus rhythm Left bundle branch block Abnormal ECG Electronically signed by : Royer Parrish MD 04/17/2021 11:50:25
--- NOTE | 2021-04-15 02:58 | PC.NURSE ---
She is intubated and sedated. Vent settings are as follows: AC mode, TV 420, R 14, PEEP 5, FiO2 35%. Tube was moved to left side of her lip. She is being turned and repositioned q 2 hours. She was turned completely on her right side and it appeared as a rhythm change. But when placed back on her back, rhythm returned to back to previous rhythm. She received a complete bed bath and linen change. She has been incontinent of stool twice and davy-care was provided via staff. SBT planned for later this morning. F/c patent with yellow, clear urine. OG is present with pulmocare at 20mL/hr. This tubing was also moved to the left along with ETT. Residual at 2000 was 5mL and 15mL at 2400. Glucose was 206 at bedtime. HOB elevated to 30 degrees.
[2021-04-15 05:15] LABS: Basophils % 0.3 % (0.1-2.0); Eosinophils # 0.1 K/mm3 (0.0-0.4); Eosinophils % 1.1 % (0.1-12.0); Hematocrit 34.5 % (37.0-47.0); Lymphocytes # 1.1 K/mm3 (0.7-4.5); Lymphocytes % 10.3 % (10-50); Mean Corpuscular HGB Conc 32.5 g/dL (31.8-35.4); Mean Corpuscular Hemoglobin 31.5 pg (27.0-31.2); Mean Corpuscular Volume 96.9 fl (81-99); Mean Platelet Volume 8.9 fl (7.4-10.4); Monocytes # 0.8 K/mm3 (0.1-1.0); Monocytes % 7.2 % (1.7-9.3); Neutrophils # 8.9 K/mm3 (1.8-7.8); Platelet Count 161 K/mm3 (142-424); Red Blood Count 3.56 M/mm3 (4.20-5.40); Red Cell Distribution Width 14.2 % (11.5-17.5); White Blood Count 10.9 K/mm3 (4.8-10.8)
[2021-04-15 05:17] LABS: Hemoglobin 11.2 g/dL (12.2-16.2)
--- NOTE | 2021-04-15 05:26 | PC.NURSE ---
Placed Pt on Spontaneous Breathing Trial per Dr. Gibson. Pt stable at this time, no respiratory distress noted. Will continue to monitor.
[2021-04-15 05:41] LABS: Anion Gap 13.2 mEq/L (5-15); Blood Urea Nitrogen 47 mg/dl (7-17); Calcium 7.9 mg/dl (8.4-10.2); Carbon Dioxide 19 mmol/L (22.0-30.0); Chloride 117 mmol/L (98-107); Creatinine Clearance Estimated 37 mL/min (50-200); Estimated Glomerular Filt Rate 32 ml/min (>60); GFR (African American) 38 ML/MIN (>60); Glucose 239 mg/dl (74-100); Potassium 3.2 mmoL/L (3.5-5.1); Sodium 146 mmol/L (136-145)
[2021-04-15 05:41] LABS: POC Glucose,Bedside 241 (70-110)
[2021-04-15 07:13] LABS: ABG Base Excess -4.7 mmol/L (-2.4-2.3); ABG HCO3 19.9 mmhg (22.0-26.0); ABG Oxygen Saturation 98 % (90-100); ABG PCO2 32.1 mmhg (35.0-45.0); ABG PH 7.41 mmol/L (7.35-7.45); ABG PO2 133.7 mmhg (80-100); ABG TCO2 20.9 mmhg (23-27)
[2021-04-15 07:27] LABS: Allen's Test Patient Unable; Oxygen 35 %; PEEP 5; Pressure Support 5; Source Right Radial
--- NOTE | 2021-04-15 08:20 | HMH.ACPN2 ---
Internal Medicine - PN: Subj *Date: 04/15/21 *Time: 08:20 Interval history: Remained hemodynamically stable overnight. Tolerated vent with minimal settings. Tube feeds initiated yesterday, tolerating without incident. Switched to SBT this morning. Remains afebrile for over 24 hours. Alert on interview this morning but not responding to commands. Did not squeeze my hand or stick out her tongue on command. Exam Vital signs and Labs for Last 24 Hours: Temp Pulse Resp BP Pulse Ox 98.6 F 94 H 33 H 156/91 H 100 04/15/21 06:45 04/15/21 06:45 04/15/21 06:45 04/15/21 06:45 04/15/21 06:45 Laboratory Results - last 24 hr 04/14/21 11:08: POC Glucose 154 H 04/14/21 16:57: POC Glucose 198 H 04/14/21 20:00: Sodium 144, Potassium 3.2 L D, Chloride 115 H, Carbon Dioxide 17 L, Anion Gap 15.2 H, BUN 44 H, Creatinine 1.70 H, Estimated Creat Clear 35, Estimated GFR 30 L, Est GFR ( Amer) 36 L, Glucose 208 H, Calcium 8.0 L 04/14/21 20:26: POC Glucose 206 H 04/15/21 04:46: POC Glucose 241 H 04/15/21 04:55: WBC 10.9 H, RBC 3.56 L, Hgb 11.2 L D, Hct 34.5 L, MCV 96.9, MCH 31.5 H, MCHC 32.5, RDW 14.2, Plt Count 161, MPV 8.9, Neut % (Auto) 81.0 H, Lymph % (Auto) 10.3, [place] % (Auto) 7.2, Eos % (Auto) 1.1, Baso % (Auto) 0.3, Neut # (Auto) 8.9 H, Lymph # (Auto) 1.1, [place] # (Auto) 0.8, Eos # (Auto) 0.1, Baso # (Auto) 0.0 04/15/21 04:55: Sodium 146 H, Potassium 3.2 L, Chloride 117 H, Carbon Dioxide 19 L, Anion Gap 13.2, BUN 47 H, Creatinine 1.60 H, Estimated Creat Clear 37, Estimated GFR 32 L, Est GFR ( Amer) 38 L, Glucose 239 H, Calcium 7.9 L 04/15/21 07:00: Specimen Source Right radial, O2 % 35, ABG pH 7.41, ABG pCO2 32.1 L, ABG pO2 133.7 H, ABG HCO3 19.9 L, ABG Total CO2 20.9 L, ABG O2 Saturation 98, ABG Base Excess -4.7 L, Federico Test Patient unable, PEEP 5 I & O for Last 24 hours: Intake & Output 04/12/21 04/13/21 04/14/21 04/15/21 23:59 23:59 23:59 23:59 Intake Total 2136 / 2193 1883 / 1952 1903 / 1957 416 / 416 Output Total 1830 / 2155 3560 / 3635 1605 / 1620 435 / 435 Balance 306 / 38 -1677 / -1683 298 / 337 -19 / -19 Weight 79 kg 77.2 kg 75.098 kg 74.559 kg Microbiology Reports for the Last 24 Hours: Microbiology 04/13/21 16:00 Foot,Right Gram Stain - Final 04/13/21 16:00 Foot,Right Wound Culture - Preliminary 04/11/21 14:50 Sputum - Expectorated Sputum Gram Stain - Final 04/11/21 14:50 Sputum - Expectorated Sputum Sputum Culture - Final Normal Respiratory Sherley 04/10/21 23:00 Blood Blood Culture - Final Enterococcus faecalis Narrative: Patient is intubated, sedation off, awake and alert. OG and ET tubes appear to be in good position. Blood pressure slightly elevated, pulse rate normal, occasional PVCs on monitor. Lungs have rhonchorous ventilatory sounds. Heart rate regular. Abdomen is soft, extremities are warm, they appear to have good capillary perfusion. Her distal extremities have significant pulss diminished as previously noted. No evidence of infectious wounds in the legs, previously noted amputations and wounds noted. Upper extremities with no edema. Oropharynx clear except for ET tube. An catheter is draining clear yellow urine. Urine output has been acceptable Assessment and Plan (1) CAP (community acquired pneumonia) Status: Acute Qualifiers: Laterality: right Lung location: lower lobe of lung Qualified Code(s): J18.9 - Pneumonia, unspecified organism Category: Medical Code(s): J18.9 - Pneumonia, unspecified organism (2) Left bundle branch block (LBBB) Status: Chronic Category: Medical Code(s): I44.7 - Left bundle-branch block, unspecified (3) Non-STEMI (non-ST elevated myocardial infarction) Status: Acute Category: Medical Code(s): I21.4 - Non-ST elevation (NSTEMI) myocardial infarction (4) Respiratory failure requiring intubation Status: Acute Category: Medica
--- NOTE | 2021-04-15 09:17 | HMH.ACPN2 ---
Internal Medicine - PN: Subj *Date: 04/15/21 *Time: 09:18 Exam Vital signs and Labs for Last 24 Hours: Temp Pulse Resp BP Pulse Ox 98.6 F 94 H 33 H 156/91 H 100 04/15/21 06:45 04/15/21 06:45 04/15/21 06:45 04/15/21 06:45 04/15/21 06:45 Laboratory Results - last 24 hr 04/14/21 11:08: POC Glucose 154 H 04/14/21 16:57: POC Glucose 198 H 04/14/21 20:00: Sodium 144, Potassium 3.2 L D, Chloride 115 H, Carbon Dioxide 17 L, Anion Gap 15.2 H, BUN 44 H, Creatinine 1.70 H, Estimated Creat Clear 35, Estimated GFR 30 L, Est GFR ( Amer) 36 L, Glucose 208 H, Calcium 8.0 L 04/14/21 20:26: POC Glucose 206 H 04/15/21 04:46: POC Glucose 241 H 04/15/21 04:55: WBC 10.9 H, RBC 3.56 L, Hgb 11.2 L D, Hct 34.5 L, MCV 96.9, MCH 31.5 H, MCHC 32.5, RDW 14.2, Plt Count 161, MPV 8.9, Neut % (Auto) 81.0 H, Lymph % (Auto) 10.3, [place] % (Auto) 7.2, Eos % (Auto) 1.1, Baso % (Auto) 0.3, Neut # (Auto) 8.9 H, Lymph # (Auto) 1.1, [place] # (Auto) 0.8, Eos # (Auto) 0.1, Baso # (Auto) 0.0 04/15/21 04:55: Sodium 146 H, Potassium 3.2 L, Chloride 117 H, Carbon Dioxide 19 L, Anion Gap 13.2, BUN 47 H, Creatinine 1.60 H, Estimated Creat Clear 37, Estimated GFR 32 L, Est GFR ( Amer) 38 L, Glucose 239 H, Calcium 7.9 L 04/15/21 07:00: Specimen Source Right radial, O2 % 35, ABG pH 7.41, ABG pCO2 32.1 L, ABG pO2 133.7 H, ABG HCO3 19.9 L, ABG Total CO2 20.9 L, ABG O2 Saturation 98, ABG Base Excess -4.7 L, Federico Test Patient unable, PEEP 5 I & O for Last 24 hours: Intake & Output 04/12/21 04/13/21 04/14/21 04/15/21 23:59 23:59 23:59 23:59 Intake Total 2136 / 2193 1883 / 1952 1903 / 1957 416 / 416 Output Total 1830 / 2155 3560 / 3635 1605 / 1620 435 / 435 Balance 306 / 38 -1677 / -1683 298 / 337 - / -19 Weight 79 kg 77.2 kg 75.098 kg 74.559 kg Microbiology Reports for the Last 24 Hours: Microbiology 04/13/21 16:00 Foot,Right Gram Stain - Final 04/13/21 16:00 Foot,Right Wound Culture - Preliminary 04/11/21 14:50 Sputum - Expectorated Sputum Gram Stain - Final 04/11/21 14:50 Sputum - Expectorated Sputum Sputum Culture - Final Normal Respiratory Sherley 04/10/21 23:00 Blood Blood Culture - Final Enterococcus faecalis Assessment and Plan (1) CAP (community acquired pneumonia) Status: Acute Qualifiers: Laterality: right Lung location: lower lobe of lung Qualified Code(s): J18.9 - Pneumonia, unspecified organism Category: Medical Code(s): J18.9 - Pneumonia, unspecified organism (2) Left bundle branch block (LBBB) Status: Chronic Category: Medical Code(s): I44.7 - Left bundle-branch block, unspecified (3) Non-STEMI (non-ST elevated myocardial infarction) Status: Acute Category: Medical Code(s): I21.4 - Non-ST elevation (NSTEMI) myocardial infarction (4) Respiratory failure requiring intubation Status: Acute Category: Medical Code(s): J96.90 - Respiratory failure, unspecified, unspecified whether with hypoxia or hypercapnia (5) Severe sepsis with acute organ dysfunction Status: Acute Category: Medical Code(s): A41.9 - Sepsis, unspecified organism; R65.20 - Severe sepsis without septic shock (6) CHF (congestive heart failure) Status: Chronic Qualifiers: Heart failure type: combined systolic and diastolic Category: Medical Code(s): I50.9 - Heart failure, unspecified (7) Delirium due to general medical condition Status: Acute Category: Medical Code(s): F05 - Delirium due to known physiological condition (8) CAD (coronary artery disease) Status: Chronic Category: Medical Code(s): I25.10 - Atherosclerotic heart disease of [place] coronary artery without angina pectoris (9) Diabetes mellitus Status: Chronic Qualifiers: Diabetes mellitus type: type 2 Diabetes mellitus detention insulin use: with detention use Diabetes mellitus complication status: with neurologic complications Diabetes mellitus
[2021-04-15 12:09] LABS: POC Glucose,Bedside 223 (70-110)
--- NOTE | 2021-04-15 12:26 | HMH.PULMPN ---
Internal Medicine - PN: Subj *Date: 04/15/21 *Time: 12:26 Interval history: No acute respiratory vents over the weekend. Exam - Constitutional Constitutional:: Present: comfortable - HENMT Exam HENMT: Present: normocephalic, atraumatic - Eye Exam Eyes:: Present: normal appearance both eyes and related structures - Neck Exam Neck:: Present: normal visual inspection - Respiratory Exam Respiratory:: Present: lungs clear, no respiratory distress - Cardiovascular Exam Cardiac:: Present: S1, S2 - GI Exam GI:: Present: soft - Skin Exam Skin: Present: warm - Neurological Exam Neurological: Present: awake. Absent: alert, normal cognition - Extremities Exam Extremities: Present: no cyanosis, no clubbing, edema Assessment and Plan (1) CAP (community acquired pneumonia) Status: Acute Qualifiers: Laterality: right Lung location: lower lobe of lung Qualified Code(s): J18.9 - Pneumonia, unspecified organism Category: Medical Code(s): J18.9 - Pneumonia, unspecified organism (2) Left bundle branch block (LBBB) Status: Chronic Category: Medical Code(s): I44.7 - Left bundle-branch block, unspecified (3) Non-STEMI (non-ST elevated myocardial infarction) Status: Acute Category: Medical Code(s): I21.4 - Non-ST elevation (NSTEMI) myocardial infarction (4) Respiratory failure requiring intubation Status: Acute Category: Medical Code(s): J96.90 - Respiratory failure, unspecified, unspecified whether with hypoxia or hypercapnia (5) Severe sepsis with acute organ dysfunction Status: Acute Category: Medical Code(s): A41.9 - Sepsis, unspecified organism; R65.20 - Severe sepsis without septic shock (6) CHF (congestive heart failure) Status: Chronic Qualifiers: Heart failure type: combined systolic and diastolic Category: Medical Code(s): I50.9 - Heart failure, unspecified (7) Delirium due to general medical condition Status: Acute Category: Medical Code(s): F05 - Delirium due to known physiological condition (8) CAD (coronary artery disease) Status: Chronic Category: Medical Code(s): I25.10 - Atherosclerotic heart disease of [place] coronary artery without angina pectoris (9) Diabetes mellitus Status: Chronic Qualifiers: Diabetes mellitus type: type 2 Diabetes mellitus senior living insulin use: with superintendent container terminal use Diabetes mellitus complication status: with neurologic complications Diabetes mellitus complication detail: with polyneuropathy Qualified Code(s): E11.42 - Type 2 diabetes mellitus with diabetic polyneuropathy; Z79.4 - intermodal dispatcher (current) use of insulin Category: Medical Code(s): E11.9 - Type 2 diabetes mellitus without complications (10) Obesity (BMI 30.0-34.9) Status: Chronic Category: Medical Code(s): E66.9 - Obesity, unspecified - Assessment and plan all Dx Assessment and Plan for all problems:: #Acute hypoxic respiratory failure: #Community-acquired pneumonia: 70-year-old history of CKD CHF diabetes presented to hospital with worsening mentation and hypoxic respiratory failure Chest x-ray admission bilateral diffuse pulmonary filtrates predominantly in the lower lobes Patient noted to have mild leukocytosis. Initial blood gas showed mixed metabolic and respiratory acidosis. Her blood gas and metabolic acidosis improved and her repeat blood gas showed normal pH and her lactate was normalized at 1.8 eventually. BNP on admission significant elevated greater than 42,000. Echo from 07/20/2020 showed congestive heart failure with a reduced EF at 35-40%. Patient's prior cultures from her right foot ulcer with blue Klebsiella Pseudomonas, Ecoli and Enterococcus faecalis. Still aspirate normal respiratory yaa Patient has been successfully passing her SBT for the last 4 days and her mentation is precluding us from extubation, patient is more awake today than prior however still not following commands. Primary team evaluating
--- NOTE | 2021-04-15 17:09 | PC.NURSE ---
patient has done well today. extubated at 1155. verified with md we were to order a set of blood cultures. has become more alert since being extubated smiling and responding well with staff but has not verbalized with staff. refused turns earlier in shift but has been allowing turns now. oral care provided as patient wants. on 1 l nasal cannula. vitals have been stable.
--- NOTE | 2021-04-15 18:08 | PC.NURSE ---
dr howe updated on patient status. okay to become stepdown instead of icu.
[2021-04-15 21:13] LABS: POC Glucose,Bedside 168 (70-110)
[2021-04-15 21:13] LABS: POC Glucose,Bedside 174 (70-110)
[2021-04-16] VITALS (16 sets, daily range): BP systolic 147–160; BP diastolic 65–78; PULSE 50–86; RESP 16–24; TEMP 36.5–37.1; O2SAT 94–100
--- NOTE | 2021-04-16 03:20 | PC.NURSE ---
She has been awake t/o most of the shift. No speech at the beginning of this shift and mostly just smiling at people but is starting to try and communicate at this time. She is being turned and repositioned. She continues on 1LPM n/c. F/C patent with yellow, clear urine.
[2021-04-16 05:26] LABS: POC Glucose,Bedside 194 (70-110)
[2021-04-16 06:52] LABS: Basophils % 0.2 % (0.1-2.0); Eosinophils # 0.1 K/mm3 (0.0-0.4); Eosinophils % 0.9 % (0.1-12.0); Hematocrit 31.4 % (37.0-47.0); Hemoglobin 10.3 g/dL (12.2-16.2); Lymphocytes # 1.3 K/mm3 (0.7-4.5); Lymphocytes % 12.2 % (10-50); Mean Corpuscular HGB Conc 32.7 g/dL (31.8-35.4); Mean Corpuscular Hemoglobin 31.8 pg (27.0-31.2); Mean Corpuscular Volume 97.1 fl (81-99); Mean Platelet Volume 8.6 fl (7.4-10.4); Monocytes # 0.9 K/mm3 (0.1-1.0); Monocytes % 7.8 % (1.7-9.3); Neutrophils # 8.6 K/mm3 (1.8-7.8); Neutrophils % 78.9 % (37.0-80.0); Platelet Count 174 K/mm3 (142-424); Red Blood Count 3.23 M/mm3 (4.20-5.40); Red Cell Distribution Width 14.4 % (11.5-17.5); White Blood Count 10.9 K/mm3 (4.8-10.8)
[2021-04-16 06:57] LABS: Magnesium 1.8 mg/dl (1.6-2.3)
--- NOTE | 2021-04-16 08:07 | HMH.ACPN2 ---
Internal Medicine - PN: Subj *Date: 04/16/21 *Time: 08:30 Interval history: Frank was extubated yesterday. Has done quite well since extubation. More alert this morning and talkative. Asking if she can eat. Tolerating 1 L nasal cannula oxygen. Oxygen saturations 98 to 100%. Heart rate 50s to 60s. Blood pressure slightly elevated with systolics in the 150s diastolics in the 70s. Denies chest pain, nausea or vomiting. Daughter at bedside on rounds. Exam Vital signs and Labs for Last 24 Hours: Temp Pulse Resp BP Pulse Ox 99.2 F 77 21 160/70 H 100 04/15/21 20:00 04/16/21 06:24 04/15/21 19:00 04/16/21 06:00 04/16/21 06:24 Laboratory Results - last 24 hr 04/15/21 11:57: POC Glucose 223 H 04/15/21 17:47: POC Glucose 174 H 04/15/21 21:00: POC Glucose 168 H 04/16/21 05:12: POC Glucose 194 H 04/16/21 06:12: WBC 10.9 H, RBC 3.23 L, Hgb 10.3 L, Hct 31.4 L, MCV 97.1, MCH 31.8 H, MCHC 32.7, RDW 14.4, Plt Count 174, MPV 8.6, Neut % (Auto) 78.9, Lymph % (Auto) 12.2, [place] % (Auto) 7.8, Eos % (Auto) 0.9, Baso % (Auto) 0.2, Neut # (Auto) 8.6 H, Lymph # (Auto) 1.3, [place] # (Auto) 0.9, Eos # (Auto) 0.1, Baso # (Auto) 0.0 04/16/21 06:12: Magnesium 1.8 I & O for Last 24 hours: Intake & Output 04/13/21 04/14/21 04/15/21 04/16/21 23:59 23:59 23:59 23:59 Intake Total 1882 / 1951 1902 / 1956 1699 / 1699 Output Total 3560 / 3635 1605 / 1620 4252 / 4252 950 / 950 Balance -1677 / -1683 298 / 337 -2553 / -2553 -950 / -950 Weight 77.2 kg 75.098 kg 74.559 kg 76.856 kg Microbiology Reports for the Last 24 Hours: Microbiology 04/13/21 16:00 Foot,Right Gram Stain - Final 04/13/21 16:00 Foot,Right Wound Culture - Preliminary - Constitutional no acute distress, chronically ill appearing - *Routine HEENT Exam Head: Present: normocephalic Eye: Present: EOMI, PERRL ENT: Present: mucous membranes moist - *Routine Neck Exam Present: supple. Absent: lymphadenopathy - *Routine Respiratory Exam Present: crackles (in posterior lung bales). Absent: respiratory distress - *Routine Cardiovascular Exam Present: RRR - *Routine Abdominal Exam Present: soft, normoactive bowel sounds. Absent: tenderness - *Routine Extremities Exam Absent: cyanosis, clubbing, edema Comments: Right lower extremity with chronic changes and amputations. Wound dressed with clean bandage - *Routine Skin Exam Present: warm. Absent: rash - *Routine Neurological Exam Present: alert Oriented to person and place Assessment and Plan (1) CAP (community acquired pneumonia) Status: Acute Qualifiers: Laterality: right Lung location: lower lobe of lung Qualified Code(s): J18.9 - Pneumonia, unspecified organism Category: Medical Code(s): J18.9 - Pneumonia, unspecified organism (2) Left bundle branch block (LBBB) Status: Chronic Category: Medical Code(s): I44.7 - Left bundle-branch block, unspecified (3) Non-STEMI (non-ST elevated myocardial infarction) Status: Acute Category: Medical Code(s): I21.4 - Non-ST elevation (NSTEMI) myocardial infarction (4) Respiratory failure requiring intubation Status: Acute Category: Medical Code(s): J96.90 - Respiratory failure, unspecified, unspecified whether with hypoxia or hypercapnia (5) Severe sepsis with acute organ dysfunction Status: Acute Category: Medical Code(s): A41.9 - Sepsis, unspecified organism; R65.20 - Severe sepsis without septic shock (6) CHF (congestive heart failure) Status: Chronic Qualifiers: Heart failure type: combined systolic and diastolic Category: Medical Code(s): I50.9 - Heart failure, unspecified (7) Delirium due to general medical condition Status: Acute Category: Medical Code(s): F05 - Delirium due to known physiological condition (8) CAD (coronary artery disease) Status: Chronic Category: Medical Code(s): I25.10 - Atherosclerotic heart disease of [place] coronary artery without teresa
[2021-04-16 08:55] LABS: Chloride 118 mmol/L (98-107); Sodium 149 mmol/L (136-145)
[2021-04-16 08:58] LABS: Anion Gap 11.8 mEq/L (5-15); Blood Urea Nitrogen 46 mg/dl (7-17); Carbon Dioxide 22 mmol/L (22.0-30.0); Creatinine Clearance Estimated 34 mL/min (50-200); Estimated Glomerular Filt Rate 28 ml/min (>60); GFR (African American) 33 ML/MIN (>60)
[2021-04-16 08:59] LABS: Calcium 8.1 mg/dl (8.4-10.2); Glucose 190 mg/dl (74-100)
[2021-04-16 09:05] LABS: Potassium 2.8 mmoL/L (3.5-5.1)
[2021-04-16 09:17] LABS: Vancomycin,Trough 17.2 ug/mL (5.0-10.0)
--- NOTE | 2021-04-16 11:04 | PC.NURSE ---
0857 - Telephone order from Dr Antoine for pt to be transferred out of step-down. Pt will be moved to room 207 from 219.
[2021-04-16 11:33] LABS: POC Glucose,Bedside 183 (70-110)
--- NOTE | 2021-04-16 11:57 | HMH.PULMPN ---
Internal Medicine - PN: Subj *Date: 04/16/21 *Time: 11:57 Interval history: No acute respiratory events overnight. Patient successfully extubated to minimal nasal cannula oxygen supplementation per mentation significantly improved from prior. Exam - Constitutional Constitutional:: Present: no acute distress, comfortable - HENMT Exam HENMT: Present: normocephalic, atraumatic - Eye Exam Eyes:: Present: normal appearance both eyes and related structures - Neck Exam Neck:: Present: normal visual inspection - Respiratory Exam Respiratory:: Present: able to speak in complete sentences, normal respiratory effort, crackles - Cardiovascular Exam Cardiac:: Present: S1, S2 - GI Exam GI:: Present: soft - Skin Exam Skin: Present: warm, no rash - Neurological Exam Neurological: Present: alert, awake - Extremities Exam Extremities: Present: no cyanosis, no clubbing, no edema - Psychiatric Exam Psychiatric: Present: normal affect Assessment and Plan (1) CAP (community acquired pneumonia) Status: Acute Qualifiers: Laterality: right Lung location: lower lobe of lung Qualified Code(s): J18.9 - Pneumonia, unspecified organism Category: Medical Code(s): J18.9 - Pneumonia, unspecified organism (2) Left bundle branch block (LBBB) Status: Chronic Category: Medical Code(s): I44.7 - Left bundle-branch block, unspecified (3) Non-STEMI (non-ST elevated myocardial infarction) Status: Acute Category: Medical Code(s): I21.4 - Non-ST elevation (NSTEMI) myocardial infarction (4) Respiratory failure requiring intubation Status: Acute Category: Medical Code(s): J96.90 - Respiratory failure, unspecified, unspecified whether with hypoxia or hypercapnia (5) Severe sepsis with acute organ dysfunction Status: Acute Category: Medical Code(s): A41.9 - Sepsis, unspecified organism; R65.20 - Severe sepsis without septic shock (6) CHF (congestive heart failure) Status: Chronic Qualifiers: Heart failure type: combined systolic and diastolic Category: Medical Code(s): I50.9 - Heart failure, unspecified (7) Delirium due to general medical condition Status: Acute Category: Medical Code(s): F05 - Delirium due to known physiological condition (8) CAD (coronary artery disease) Status: Chronic Category: Medical Code(s): I25.10 - Atherosclerotic heart disease of [place] coronary artery without angina pectoris (9) Diabetes mellitus Status: Chronic Qualifiers: Diabetes mellitus type: type 2 Diabetes mellitus usp insulin use: with tank terminal gauger use Diabetes mellitus complication status: with neurologic complications Diabetes mellitus complication detail: with polyneuropathy Qualified Code(s): E11.42 - Type 2 diabetes mellitus with diabetic polyneuropathy; Z79.4 - residential (current) use of insulin Category: Medical Code(s): E11.9 - Type 2 diabetes mellitus without complications (10) Obesity (BMI 30.0-34.9) Status: Chronic Category: Medical Code(s): E66.9 - Obesity, unspecified - Assessment and plan all Dx Assessment and Plan for all problems:: #Acute hypoxic respiratory failure: #Community-acquired pneumonia: 70-year-old history of CKD CHF diabetes presented to hospital with worsening mentation and hypoxic respiratory failure Chest x-ray admission bilateral diffuse pulmonary filtrates predominantly in the lower lobes that improved with diuresis. Even though patient was on minimal vent settings her mentation delayed her extubation. Patient eventually extubated to nasal cannula and today patient saturating 99% on 1 L nasal cannula. She is a never smoker and denies any baseline respiratory complaints. BNP on admission significant elevated greater than 42,000. Echo from 07/20/2020 showed congestive heart failure with a reduced EF at 35-40%. Patient's prior cultures from her right foot ulcer with blue Klebsiella Pseudomonas, Ecoli and Enterococcus faecalis.
--- NOTE | 2021-04-16 14:11 | HMH.SLDYSPHA ---
Speech & Language Evaluation Speech/Language Dysphagia Evaluation Start: 04/16/21 13:45 Freq: ONCE Status: Active Protocol: Document 04/16/21 13:45 AMANDEEP (Rec: 04/16/21 14:11 AMANDEEP [id number]) Dysphagia Assess/Goals/Plan Assessment Date of Evaluation: 04/16/21 Evaluation Type Initial Certification Assessment/Problems Extubated, dysphagia Does Patient Qualify for Service No Qualify/Failure Comment Marley does not qualify for services at this time based on the results of today's evaluation, however, speech will monitor for possible diet upgrades in the future. Recommendations PHYSICIAN CERTIFICATION: The specified therapy services are required, authorized, and reviewed every 30 days. Diet Recommendations Pureed Liquid Type Recommendations Normal/Thin SL Swallow Guidelines Assist w/all meals,Alt bite w/ sip thru meal,Standard Aspiration Prec.,Chk mough for pocketing,Eat at slow rate, Oral care pre/post meals Crush Meds Crush all meds Dysphagia Swallow Precautions/Strategies Sitting Upright (90 deg),No Straw,Liquids from Cup,Small Bites and Sips,Alternate Liquids/Solids Place Food on Either side of Mouth Plan Pt/Guardian verbally ack understanding Yes of dx/prognosis/goals Pt/Guardian verbally ack understanding Yes of/consent to tx prog G -code Required No Education Instructions provided Discussed results of the clinical swallow evaluation and diet recommendations with patient, daughter, and nursing . Pt/Caregiver able to recall information Able to recall/restate, Reinforcement needed Speech & Language HPI Language Primary Language Sinhala General Information General Current Food Consistancy NPO Dentition Edentulous Oxygen Status Nasal Cannula Facial Symmetry Symmetrical Ability to Follow Directions Fair Communication Ability Moderate Impairment Dysphagia:Food Presentation Evaluation Food Type Pureed,Mechanical Soft,Liquid, Pudding Normal/Thin Liquid Response Coughing after swallow Pudding Consistency Liquid Response Residual on tongue,Delayed swallow Dysphagia Evaluation Pureed Food Delayed swallow Behavio
--- NOTE | 2021-04-16 15:19 | HMH.PHACONS ---
- Pharmacy Consult Date: 04/16/21 Time: 15:19 Referring provider: DR. ZEPEDA Reason for Consult:: VANCOMYCIN DOSING Allergies and ADEs:: Allergies Allergy/AdvReac Type Severity Reaction Status Date / Time fentanyl [FENTANYL] Allergy Unknown Verified 04/04/21 13:48 latex [LATEX] Allergy Unknown Verified 04/04/21 13:48 codeine AdvReac Unknown Verified 04/04/21 13:48 Home Medications:: Home Medications Medication Instructions Recorded Confirmed Type aspirin 81 mg tablet,delayed 81 mg PO DAILY 09/17/17 04/10/21 History release clopidogrel 75 mg tablet 75 mg PO DAILY 09/17/17 04/10/21 History furosemide 40 mg tablet 40 mg PO BID 09/17/17 04/11/21 History sitagliptin 50 mg tablet 50 mg PO DAILY 09/17/17 04/10/21 History famotidine 20 mg tablet 20 mg PO BID tab 09/18/17 04/10/21 History Pravastatin Sodium [Pravachol] 80 mg PO HS 05/28/18 04/10/21 History citalopram 20 mg tablet 20 mg PO DAILY 90 Days tab 09/16/18 04/10/21 History diclofenac sodium 1 % topical gel 4 g TOPICAL QID PRN #30 g 05/10/19 04/10/21 Rx Cholecalciferol (Vitamin D3) 1,000 unit PO MONTHLY 05/12/19 04/11/21 History [Vitamin D3 1,000 Unit Tab] losartan 100 mg tablet 100 mg PO DAILY tab 10/04/19 04/10/21 History Omeprazole [Omeprazole 20mg 20 mg PO BID 01/10/20 04/11/21 History Capsule] insulin NPH-regular 70-30 U-100 20 unit SQ BID ml 02/09/20 04/10/21 History insulin 100 unit/mL subcutaneous pen amlodipine 5 mg tablet 2.5 mg PO BID tab 10/23/20 04/11/21 History carvedilol 12.5 mg tablet 6.25 mg PO HS tab 10/23/20 04/11/21 History oxybutynin chloride 5 mg 5 mg PO DAILY tab 04/01/21 04/10/21 History tablet,extended release 24 hr metOLazone [Metolazone 5mg Tab] 5 mg PO DAILY 04/11/21 04/11/21 History Height: 1.6 m Weight: 76.856 kg Laboratory Results:: Laboratory Results - last 24 hr 04/15/21 17:47: POC Glucose 174 H 04/15/21 21:00: POC Glucose 168 H 04/16/21 05:12: POC Glucose 194 H 04/16/21 06:12: WBC 10.9 H, RBC 3.23 L, Hgb 10.3 L, Hct 31.4 L, MCV 97.1, MCH 31.8 H, MCHC 32.7, RDW 14.4, Plt Count 174, MPV 8.6, Neut % (Auto) 78.9, Lymph % (Auto) 12.2, [place] % (Auto) 7.8, Eos % (Auto) 0.9, Baso % (Auto) 0.2, Neut # (Auto) 8.6 H, Lymph # (Auto) 1.3, [place] # (Auto) 0.9, Eos # (Auto) 0.1, Baso # (Auto) 0.0 04/16/21 06:12: Magnesium 1.8 04/16/21 08:26: Sodium 149 H, Potassium 2.8 L*, Chloride 118 H, Carbon Dioxide 22, Anion Gap 11.8, BUN 46 H, Creatinine 1.80 H, Estimated Creat Clear 34, Estimated GFR 28 L, Est GFR ( Amer) 33 L, Glucose 190 H, Calcium 8.1 L 04/16/21 08:26: Vancomycin Trough 17.2 H 04/16/21 11:06: POC Glucose 183 H Medical History: Reports:: Congestive Heart Failure, Coronary Artery Disease, Diabetes Mellitus Type 2, Hyperlipidemia, Hypertension, Myocardial Infarction, Osteoporosis Denies:: Cancer, Diabetes Mellitus Type 1, Internal Pacemaker, MRSA, Seizures Assessment and Plan (1) CAP (community acquired pneumonia) Status: Acute Qualifiers: Laterality: right Lung location: lower lobe of lung Qualified Code(s): J18.9 - Pneumonia, unspecified organism Category: Medical Code(s): J18.9 - Pneumonia, unspecified organism (2) Left bundle branch block (LBBB) Status: Chronic Category: Medical Code(s): I44.7 - Left bundle-branch block, unspecified (3) Non-STEMI (non-ST elevated myocardial infarction) Status: Acute Category: Medical Code(s): I21.4 - Non-ST elevation (NSTEMI) myocardial infarction (4) Respiratory failure requiring intubation Status: Acute Category: Medical Code(s): J96.90 - Respiratory failure, unspecified, unspecified whether with hypoxia or hypercapnia (5) Severe sepsis with acute organ dysfunction Status: Acute Category: Medical Code(s): A41.9 - Sepsis, unspecified organism; R65.20 - Severe sepsis without septic shock (6) CHF (congestive heart failure) Status: Chronic Qualifiers: Heart failure type: combined systolic and diastolic Ca
[2021-04-16 18:01] LABS: POC Glucose,Bedside 276 (70-110)
--- NOTE | 2021-04-16 19:52 | PC.NURSE ---
PT IS SITTING UP IN THE CHAIR. NO COMPLAINTS OF DISCOMFORT. PT HAS TOLERATED PUREED DIET WELL. DRINKING W/O DIFFICULTY. PT HAS TOLERATED SITTING UP IN THE CHAIR FOR SEVERAL HOURS THIS SHIFT. LUNG SOUNDS DIMINISHED. ABDOMEN SOFT/NON TENDER WITH ACTIVE BOWEL SOUNDS. O2 SATURATION HAS MAINTAINED IN THE MID 90'S ON 1 L NC. WILL CONTINUE TO MONITOR.
[2021-04-16 21:07] LABS: POC Glucose,Bedside 295 (70-110)
[2021-04-17] VITALS (9 sets, daily range): BP systolic 153–160; BP diastolic 62–84; PULSE 60–90; RESP 18–20; TEMP 36.6–37; O2SAT 92–98; BMI 29.9
--- NOTE | 2021-04-17 03:21 | PC.NURSE ---
Pt has been up to the chair for a part of this shift. Now laying in bed with no c/o pain or discomfort. Pt has been able to carry conversation with staff. Lungs are diminished, on 1L NC. Bowel sounds active x4, abd soft and nontender. Meds were crushed in apple sauce, pt tolerated well. Daughter has been at bedside t/o shift. Pt is able to make needs known to staff. VSS, call light in reach, no concerns at this time.
[2021-04-17 05:39] LABS: POC Glucose,Bedside 223 (70-110)
--- NOTE | 2021-04-17 08:20 | HMH.ACPN2 ---
Internal Medicine - PN: Subj *Date: 04/17/21 *Time: 08:20 Interval history: Overall patient feels pretty good, remains significantly weak. PT/OT evaluation pending. Exam Vital signs and Labs for Last 24 Hours: Temp Pulse Resp BP Pulse Ox 98.1 F 66 20 156/78 H 96 04/17/21 04:00 04/17/21 06:21 04/17/21 04:00 04/17/21 04:00 04/17/21 04:00 Laboratory Results - last 24 hr 04/16/21 08:26: Sodium 149 H, Potassium 2.8 L*, Chloride 118 H, Carbon Dioxide 22, Anion Gap 11.8, BUN 46 H, Creatinine 1.80 H, Estimated Creat Clear 34, Estimated GFR 28 L, Est GFR ( Amer) 33 L, Glucose 190 H, Calcium 8.1 L 04/16/21 08:26: Vancomycin Trough 17.2 H 04/16/21 11:06: POC Glucose 183 H 04/16/21 17:05: POC Glucose 276 H 04/16/21 20:53: POC Glucose 295 H 04/17/21 05:30: POC Glucose 223 H I & O for Last 24 hours: Intake & Output 04/14/21 04/15/21 04/16/21 04/17/21 11:59 11:59 11:59 11:59 Intake Total 2057 / 2057 2543 / 2596 462 / 462 420 / 420 Output Total 2865 / 2895 2377 / 3767 3550 / 3550 800 / 800 Balance -808 / -838 166 / -1171 -3088 / -3088 -380 / -380 Weight 165 lb 9 oz 164 lb 6 oz 169 lb 7 oz 169 lb 6 oz Microbiology Reports for the Last 24 Hours: Microbiology 04/13/21 16:00 Foot,Right Gram Stain - Final 04/13/21 16:00 Foot,Right Wound Culture - Preliminary Staphylococcus epidermidis Enterococcus faecalis Narrative: Anterior lung bales are clear, heart rate regular. Abdomen soft. Extremity exam unchanged. Neurologically she is awake, alert, no focal deficits but is globally very weak. Assessment and Plan (1) CAP (community acquired pneumonia) Status: Acute Qualifiers: Laterality: right Lung location: lower lobe of lung Qualified Code(s): J18.9 - Pneumonia, unspecified organism Category: Medical Code(s): J18.9 - Pneumonia, unspecified organism (2) Left bundle branch block (LBBB) Status: Chronic Category: Medical Code(s): I44.7 - Left bundle-branch block, unspecified (3) Non-STEMI (non-ST elevated myocardial infarction) Status: Acute Category: Medical Code(s): I21.4 - Non-ST elevation (NSTEMI) myocardial infarction (4) Respiratory failure requiring intubation Status: Acute Category: Medical Code(s): J96.90 - Respiratory failure, unspecified, unspecified whether with hypoxia or hypercapnia (5) Severe sepsis with acute organ dysfunction Status: Acute Category: Medical Code(s): A41.9 - Sepsis, unspecified organism; R65.20 - Severe sepsis without septic shock (6) CHF (congestive heart failure) Status: Chronic Qualifiers: Heart failure type: combined systolic and diastolic Category: Medical Code(s): I50.9 - Heart failure, unspecified (7) Delirium due to general medical condition Status: Acute Category: Medical Code(s): F05 - Delirium due to known physiological condition (8) CAD (coronary artery disease) Status: Chronic Category: Medical Code(s): I25.10 - Atherosclerotic heart disease of [place] coronary artery without angina pectoris (9) Diabetes mellitus Status: Chronic Qualifiers: Diabetes mellitus type: type 2 Diabetes mellitus care home insulin use: with termite exterminator use Diabetes mellitus complication status: with neurologic complications Diabetes mellitus complication detail: with polyneuropathy Qualified Code(s): E11.42 - Type 2 diabetes mellitus with diabetic polyneuropathy; Z79.4 - USP (current) use of insulin Category: Medical Code(s): E11.9 - Type 2 diabetes mellitus without complications (10) Obesity (BMI 30.0-34.9) Status: Chronic Category: Medical Code(s): E66.9 - Obesity, unspecified - Assessment and plan all Dx Assessment and Plan for all problems:: Check labs to follow hypokalemia after replacement yesterday. PT/OT evaluation today. Continue IV antibiotics for sepsis. Patient will probably need skill
[2021-04-17 08:49] LABS: Basophils # 0.1 K/mm3 (0-0.2); Basophils % 0.9 % (0.1-2.0); Eosinophils # 0.7 K/mm3 (0.0-0.4); Eosinophils % 6.3 % (0.1-12.0); Hemoglobin 12.7 g/dL (12.2-16.2); Lymphocytes # 1.4 K/mm3 (0.7-4.5); Mean Corpuscular HGB Conc 32.6 g/dL (31.8-35.4); Mean Corpuscular Hemoglobin 31.4 pg (27.0-31.2); Mean Corpuscular Volume 96.2 fl (81-99); Mean Platelet Volume 9.1 fl (7.4-10.4); Monocytes # 0.7 K/mm3 (0.1-1.0); Monocytes % 6.6 % (1.7-9.3); Neutrophils # 7.9 K/mm3 (1.8-7.8); Neutrophils % 73.2 % (37.0-80.0); Platelet Count 158 K/mm3 (142-424); Red Blood Count 4.06 M/mm3 (4.20-5.40); Red Cell Distribution Width 14.4 % (11.5-17.5); White Blood Count 10.8 K/mm3 (4.8-10.8)
[2021-04-17 09:36] LABS: Chloride 115 mmol/L (98-107); Potassium 3.7 mmoL/L (3.5-5.1); Sodium 144 mmol/L (136-145)
[2021-04-17 09:39] LABS: Anion Gap 12.7 mEq/L (5-15); Blood Urea Nitrogen 43 mg/dl (7-17); Carbon Dioxide 20 mmol/L (22.0-30.0); Creatinine Clearance Estimated 39 mL/min (50-200); Estimated Glomerular Filt Rate 32 ml/min (>60); GFR (African American) 38 ML/MIN (>60)
[2021-04-17 09:40] LABS: Calcium 8.1 mg/dl (8.4-10.2); Glucose 201 mg/dl (74-100)
--- NOTE | 2021-04-17 10:14 | DIET.NUTRFU ---
Pt extubated and doing very well. Diet given yesterday following 3d NPO and 6d minimal nutrition dt multiple attempts SBTs. She is tolerating well and was able to eat about 50% of her first 2 meals. Seen by DIAPHRAGM BUILDER who recommended pureed diet at this time and thin liquids, assistance with meals observing aspiration precautions. Will continue diet without Na/cho restrictions at this time, recommend slow advancement to ADA/MADI diet as indicated. Pt was open to once daily protein supplement of her preference, added to order. Will monitor to alter nutritional care plan as indicated. Weight is stable past 48h- down 6# from admission, K wnl today, renal function slightly improved, BG moderate- avg. 220 Please assist and encourage/cue pt with all meals prioritizing protein, please encourage fluid intake as well, IVF sumanth'd.
--- NOTE | 2021-04-17 10:18 | HMH.OTEV ---
OT Inpatient Evaluation Rehab OT IP Evaluation Start: 04/17/21 08:21 Freq: ONCE Status: Complete Protocol: Document 04/17/21 10:10 NABEEL (Rec: 04/17/21 10:18 NABEEL [id number]) Rehab OT IP Assessment Subjective History *Admission Date: 04/11/21 *Chief complaint: Mental status change, fever, sepsis *History of present illness: 70-year-old white female with multiple medical problems including insulin requiring diabetes, peripheral arterial disease, chronic foot ulcers, chronic neuropathy and chronic kidney disease, who came to the emergency department early in the morning of 811 with mental status changes and confusion. Work-up in the ER was extensive including multiple laboratory testing, x-ray testing and observation as well as some fluid administration. The patient slowly improved over her time in the ER and returned to her baseline level of functioning and was discharged home yesterday in the midday hours. She went home and apparently had similar symptoms that recurred with confusion, and obtunded status. Return to the ER last night with a fever of 102-previously had been afebrile-and also with elevated white count, elevated lactate and chest x- ray showing lobar pneumonia. Patient with significant respiratory acidosis and respiratory failure, was intubated and transferred to the ICU after receiving several doses of antibiotics in the ER. [facility] History I have reviewed the patient's past medical history: Yes Medical History: Reports::
--- NOTE | 2021-04-17 10:29 | HMH.PTEV ---
Physical Therapy Evaluation Rehab PT IP Evaluation Start: 04/17/21 08:21 Freq: ONCE Status: Active Protocol: Document 04/17/21 09:57 EDGAR (Rec: 04/17/21 10:29 EDGAR [id number]) Subjective/History History History Pt is 70 year old female admitted to [facility] for altered mental status and confusion. Pt was found to have significant respiratory acidosis and respiratory failure and was intubated. Pt came off ventilation yesterday. Subjective Subjective Pt stated swelling in both of her legs has decreased. Pt reported she lives in one level house with daughter and grandson who help care for her . Pt reported she is home alone throughout the day and has been using rollator to walk. Eval completed by DAHLIA Joyce. Rehab PT IP Eval Objective Appearance Patient Behavior Appropriate,Cooperative, Distractible Patient Orientation Name,Birthday Difficulty following instructions mild Speech Pattern Clear,Appropriate,Coherent Ambulation Patient Able to Ambulate No Balance Ability to Arise Unable Sitting Balance Steady, safe Standing Balance Unsteady Dynamic Sitting Balance Ability Good Dynamic Standing Balance Ability Poor Transfers Chair Transfer Ability Minimal x 2 (25% assist) Sit to Stand Chair Transfer Ability Moderate x 2 (50% assist) MMT All Extremities PT MMT WFL Rehab PT IP prob,goals,plan Problems Date of Evaluation: 04/17/21 PT IP Problems Bed Mobility,Transfers,Gait, Balance,Safety Rehab Potential Rehab Potential Fair Equipment Needs Assistive Devices Rolling / Wheeled Walker Plan PT Intervention Plan Bed Mobility,Transfers,Gait, Balance,Safety,Therapeutic Exercise PT Plan Frequency BID Duration LOS Discharge Goals Bed Transfer Ability Moderate x 1 (50% assist) Sit to Stand Chair Transfer Ability Moderate x 1 (50% assist) Ambulation Assistive Device Rolling Walker Ambulation Distance (feet) 5 Discharge Plan PT Discharge Plan Due to pt's weakne
[2021-04-17 10:47] LABS: POC Glucose,Bedside 264 (70-110)
--- NOTE | 2021-04-17 11:26 | PC.NURSE ---
Placed pt on room air, sats staying above 97%
--- NOTE | 2021-04-17 13:41 | SW/DCPLANNER ---
Addendum entered by Dolores Akins 04/18/21 15:09: PATIENT HAS DECLINED TO GO TO [facility] IF APPROVED AND WISHES TO GO HOME AGAINST MD RECOMMENDATIONS... I HAVE SET HER UP WITH [facility] PER HER CHOICE FOR HOME HEALTH AND DAUGHTER REQUESTED A BEDSIDE COMMODE.. THIS WILL BE DELIVERED TO HER HOME TODAY... HOME HEALTH SERVICES TO START IN THE AM (THURSDAY) FAMILY IN AGREEMENT TO LET PATIENT RETURN HOME EVEN THOUGH MD DOESN'T THINK SHE SHOULD... Addendum entered by Dolores Akins 04/18/21 10:42: CHARLIE FROM [facility] CALLED AND STATED SHE HAS STARTED THE AUTHORIZATION AND IF APPROVED SHE MAY DISCHARGE LATER TODAY.. PATIENT CAN NOT GO HOME AT THIS TIME, SHE HAS NO ONE TO TAKE CARE OF HER 23/03... PATIENT IS NOT SAFE.. DAUGHTER IS UPSET BECAUSE PATIENT DOES NOT WANT TO GO BUT SHE HAS TO BECAUSE SHE CAN NOT CARE FOR HERSELF AT THIS TIME.. Addendum entered by Melani Joaquin 04/17/21 14:44: Referral has been faxed to Charlie at [facility]. Addendum entered by Melani Joaquin 04/17/21 14:39: At this time Rena rivas/ [facility] stated that they can not meet patients needs. [facility] is not in network with patients insurance. [facility] [place] and [facility] is not accepting any new admissions. Per daughters request I will call and follow up [facility], [facility] and [facility]. Original Note: I spoke with this patient and her two daughters (Brandy and Louisa) regarding discharge plans. I informed patient and family while in room that Dr Parrish and PT/OT highly encourage placement at time of discharge. Patient is NOT interested in placement at this time. Patient is quick to refuse placement. Myself and two daughters attempted to encourage patient and patient continued to refuse. PT/OT did see patient during my visit and again recommended placement. At this time Rena with [facility] has stated that [facility] has a bed available. Louisa has requested that I fax patient information to Rena to review and will have further discussion with patient once information is reviewed. I have updated Dr Parrish regarding situation. I will follow up with: [facility], patient, family and Dr Parrish.
[2021-04-17 16:07] LABS: POC Glucose,Bedside 187 (70-110)
[2021-04-18] VITALS: BP 146/58; PULSE 70; RESP 18; TEMP 36.6; O2SAT 98
[2021-04-18 00:55] LABS: POC Glucose,Bedside 302 (70-110)
[2021-04-18 04:00] VITALS: BP 130/71; PULSE 60; PULSE 68; RESP 18; TEMP 36.7; O2SAT 95
[2021-04-18 05:00] VITALS: BMI 29.8
[2021-04-18 05:33] LABS: POC Glucose,Bedside 202 (70-110)
[2021-04-18 05:54] VITALS: PULSE 71; O2SAT 91
[2021-04-18 07:03] LABS: Basophils # 0.1 K/mm3 (0-0.2); Basophils % 0.6 % (0.1-2.0); Eosinophils # 0.7 K/mm3 (0.0-0.4); Eosinophils % 7.4 % (0.1-12.0); Hematocrit 29.2 % (37.0-47.0); Lymphocytes # 1.7 K/mm3 (0.7-4.5); Lymphocytes % 16.6 % (10-50); Mean Corpuscular HGB Conc 33.3 g/dL (31.8-35.4); Mean Corpuscular Hemoglobin 31.4 pg (27.0-31.2); Mean Corpuscular Volume 94.3 fl (81-99); Mean Platelet Volume 9.3 fl (7.4-10.4); Monocytes # 0.7 K/mm3 (0.1-1.0); Monocytes % 7.5 % (1.7-9.3); Neutrophils # 6.7 K/mm3 (1.8-7.8); Neutrophils % 67.9 % (37.0-80.0); Platelet Count 149 K/mm3 (142-424); Red Cell Distribution Width 14.6 % (11.5-17.5); White Blood Count 9.9 K/mm3 (4.8-10.8)
[2021-04-18 07:18] LABS: Chloride 113 mmol/L (98-107)
[2021-04-18 07:19] LABS: Potassium 3.5 mmoL/L (3.5-5.1); Sodium 140 mmol/L (136-145)
[2021-04-18 07:21] LABS: Blood Urea Nitrogen 39 mg/dl (7-17); Creatinine Clearance Estimated 34 mL/min (50-200); Estimated Glomerular Filt Rate 28 ml/min (>60); GFR (African American) 33 ML/MIN (>60)
[2021-04-18 07:22] LABS: Anion Gap 6.5 mEq/L (5-15); Calcium 7.9 mg/dl (8.4-10.2); Carbon Dioxide 24 mmol/L (22.0-30.0); Glucose 175 mg/dl (74-100)
[2021-04-18 07:44] LABS: Hemoglobin 9.7 g/dL (12.2-16.2)
[2021-04-18 08:00] VITALS: BP 160/69; PULSE 60; PULSE 66; RESP 18; TEMP 36.6; O2SAT 98
--- NOTE | 2021-04-18 09:23 | HMH.ACPN2 ---
Internal Medicine - PN: Subj *Date: 04/18/21 *Time: 09:23 Interval history: Overnight patient did well, she is off oxygen. Is preparing to eat her meal. Exam Vital signs and Labs for Last 24 Hours: Temp Pulse Resp BP Pulse Ox 97.8 F 66 18 160/69 H 98 04/18/21 08:00 04/18/21 08:00 04/18/21 08:00 04/18/21 08:00 04/18/21 08:00 Laboratory Results - last 24 hr 04/17/21 08:39: Sodium 144, Potassium 3.7 D, Chloride 115 H, Carbon Dioxide 20 L, Anion Gap 12.7, BUN 43 H, Creatinine 1.60 H, Estimated Creat Clear 39, Estimated GFR 32 L, Est GFR ( Amer) 38 L, Glucose 201 H, Calcium 8.1 L 04/17/21 10:40: POC Glucose 264 H 04/17/21 15:58: POC Glucose 187 H 04/17/21 20:30: POC Glucose 302 H* 04/18/21 05:24: POC Glucose 202 H 04/18/21 06:36: WBC 9.9, RBC 3.10 L, Hgb 9.7 L D, Hct 29.2 L, MCV 94.3, MCH 31.4 H, MCHC 33.3, RDW 14.6, Plt Count 149, MPV 9.3, Neut % (Auto) 67.9, Lymph % (Auto) 16.6, [place] % (Auto) 7.5, Eos % (Auto) 7.4, Baso % (Auto) 0.6, Neut # (Auto) 6.7, Lymph # (Auto) 1.7, [place] # (Auto) 0.7, Eos # (Auto) 0.7 H, Baso # (Auto) 0.1 04/18/21 06:36: Sodium 140, Potassium 3.5, Chloride 113 H, Carbon Dioxide 24, Anion Gap 6.5, BUN 39 H, Creatinine 1.80 H, Estimated Creat Clear 34, Estimated GFR 28 L, Est GFR ( Amer) 33 L, Glucose 175 H, Calcium 7.9 L I & O for Last 24 hours: Intake & Output 08/16/21 08/17/21 08/18/21 08/19/21 11:59 11:59 11:59 11:59 Intake Total 2543 / 2596 462 / 462 540 / 540 1280 / 1280 Output Total 2377 / 3767 3550 / 3550 800 / 800 Balance 166 / -1171 -3088 / -3088 -260 / -260 1280 / 1280 Weight 164 lb 6 oz 169 lb 7 oz 169 lb 6 oz 168 lb 6.931 oz Microbiology Reports for the Last 24 Hours: Microbiology 04/13/21 16:00 Foot,Right Gram Stain - Final 04/13/21 16:00 Foot,Right Wound Culture - Preliminary Staphylococcus epidermidis Enterococcus faecalis 04/15/21 11:34 Blood - Not Otherwise Specified Blood Culture - Preliminary NO GROWTH AFTER 48 HOURS Narrative: Patient is talkative, very angry about the possibility of fdc transfer today. She is oriented x2. Really has however no insight into her disease process and is fixated on the fact that 10 years ago she was able to do home health. Her exam reveals clear lungs, heart rate regular. Abdomen soft, she is so weak she is unable to sit up in the bed for me to examine her posterior chest without almost maximum assistance. Extremity exam unchanged. Assessment and Plan (1) CAP (community acquired pneumonia) Status: Acute Qualifiers: Laterality: right Lung location: lower lobe of lung Qualified Code(s): J18.9 - Pneumonia, unspecified organism Category: Medical Code(s): J18.9 - Pneumonia, unspecified organism (2) Left bundle branch block (LBBB) Status: Chronic Category: Medical Code(s): I44.7 - Left bundle-branch block, unspecified (3) Non-STEMI (non-ST elevated myocardial infarction) Status: Acute Category: Medical Code(s): I21.4 - Non-ST elevation (NSTEMI) myocardial infarction (4) Respiratory failure requiring intubation Status: Acute Category: Medical Code(s): J96.90 - Respiratory failure, unspecified, unspecified whether with hypoxia or hypercapnia (5) Severe sepsis with acute organ dysfunction Status: Acute Category: Medical Code(s): A41.9 - Sepsis, unspecified organism; R65.20 - Severe sepsis without septic shock (6) CHF (congestive heart failure) Status: Chronic Qualifiers: Heart failure type: combined systolic and diastolic Category: Medical Code(s): I50.9 - Heart failure, unspecified (7) Delirium due to general medical condition Status: Acute Category: Medical Code(s): F05 - Delirium due to known physiological condition (8) CAD (coronary artery disease) Status: Chronic Category: Medical Code(s): I25.10 - Atherosclerotic heart disease of
[2021-04-18 10:59] LABS: POC Glucose,Bedside 212 (70-110)
[2021-04-18 12:00] VITALS: BP 182/77; PULSE 60; PULSE 65; RESP 16; TEMP 36.6; O2SAT 99
--- NOTE | 2021-04-18 14:08 | HMH.DCSUM ---
General - General Admission date:: 04/11/21 Discharge date: 04/18/21 HPI HPI: 70-year-old white female with multiple medical problems including insulin requiring diabetes, peripheral arterial disease, chronic foot ulcers, chronic neuropathy and chronic kidney disease, who came to the emergency department early in the morning of 811 with mental status changes and confusion. Work-up in the ER was extensive including multiple laboratory testing, x-ray testing and observation as well as some fluid administration. The patient slowly improved over her time in the ER and returned to her baseline level of functioning and was discharged home yesterday in the midday hours. She went home and apparently had similar symptoms that recurred with confusion, and obtunded status. Return to the ER last night with a fever of 102-previously had been afebrile-and also with elevated white count, elevated lactate and chest x-ray showing lobar pneumonia. Patient with significant respiratory acidosis and respiratory failure, was intubated and transferred to the ICU after receiving several doses of antibiotics in the ER. Hospital Course Hospital Course: Patient was admitted to hospital. Intubated, found to be septic with positive blood cultures for Enterococcus in both bottles. It was felt that this was also from her foot wound, which also grew Enterococcus along with staph epi but staph epi did not grow from the blood cultures. Fortunately, Enterococcus was sensitive to penicillin. Patient did well on the ventilator for 2 days, when fevers and sepsis symptoms had resolved she was successfully extubated and quickly was able to be weaned off oxygen totally. She had been treated for CHF exacerbation while on the ventilator with Lasix and she tolerated this well with stable kidney function. Over the last couple of days she has been doing well, eating well, but has been exquisitely weak, and physical therapy has recommended placement in a skilled care facility for 2 to 3 weeks for rehabilitation. However, the patient has been extremely opposed to this, and had a very angry conversation with me this morning, blaming her children for not wanting to take care of her and telling me that I was not doing the right thing by even considering placing her in a skilled nursing. I disagree with this, but after initially wanting skilled care, her children have now a seated to her wishes and will be taking her home today. I do not have a good feeling about this but obviously this is their decision. We will initiate home health, bedside commode will be needed by patient. Given my [id number] evaluation today patient needs home health for PT/OT/home safety. She needs nursing care to monitor post infectious issues and her foot wound. She needs a CBC and a BMP on April 22, and we will follow her up based on home health evaluation. Objective Vital signs: Temp Pulse Resp BP Pulse Ox 97.8 F 65 16 182/77 H 99 04/18/21 12:00 04/18/21 12:04/18/21 12:00 04/18/21 12:04/18/21 12:00 no acute distress, obese, chronically ill appearing Comments: Globally extremely weak, cannot sit on the side of the bed without support - *Routine HEENT Exam Head: Present: normocephalic Eye: Present: EOMI, PERRL ENT: Present: mucous membranes moist - *Routine Neck Exam Present: supple - *Routine Respiratory Exam Present: CTA bilaterally - *Routine Cardiovascular Exam Present: RRR, murmur, bradycardia - *Routine Abdominal Exam Present: soft, normoactive bowel sounds. Absent: tenderness - *Routine Extremities Exam Absent: cyanosis, clubbing Comments: Old wounds on foot... no changes... no edema this am - *Routine Skin Exam Present: warm. Absent: rash Comments: This picture records Re: Foot wounds - *Routine Neurological Exam Present: alert Patient is oriented but is extremely unreasonable in regards to appropriate decision-making.
--- NOTE | 2021-04-18 15:00 | PC.NURSE ---
Patient would greatly benefit from a bedside commode due to respiratory issues,and weakness. Patient has sob with exertion and history of respiratory failure.
[2021-04-18 16:00] VITALS: BP 131/61; PULSE 80; PULSE 90; RESP 18; TEMP 36.7; O2SAT 98
[2021-04-18 17:02] LABS: POC Glucose,Bedside 270 (70-110)
== END 2021-04-18 19:09 | disposition home health service (06) | DRG 870 ==
LOC: ER 04-11 00:11 → 2ND 04-11 00:54
PROVIDERS: Internal Medicine Adolescent Medicine; Internal Medicine Pulmonary Disease; Admitting Provider Internal Medicine Adolescent Medicine; Emergency Provider Emergency Medicine; PCP Internal Medicine Adolescent Medicine; Visit Provider Internal Medicine Adolescent Medicine
DX: A41.81 Sepsis due to Enterococcus (principal); J96.01 Acute respiratory failure with hypoxia; R65.21 Severe sepsis with septic shock; I21.4 Non-ST elevation (NSTEMI) myocardial infarction; J18.9 Pneumonia, unspecified organism; I50.43 Acute on chronic combined systolic (congestive) and diastolic (congestive) heart failure; J44.0 Chronic obstructive pulmonary disease with (acute) lower respiratory infection; F05 Delirium due to known physiological condition; I50.82 Biventricular heart failure; E11.42 Type 2 diabetes mellitus with diabetic polyneuropathy; Z79.4 Long term (current) use of insulin; I25.10 Atherosclerotic heart disease of native coronary artery without angina pectoris; M81.0 Age-related osteoporosis without current pathological fracture; Z95.5 Presence of coronary angioplasty implant and graft; Z20.822 Contact with and (suspected) exposure to COVID-19; I25.2 Old myocardial infarction; Z95.1 Presence of aortocoronary bypass graft; E11.49 Type 2 diabetes mellitus with other diabetic neurological complication; E66.9 Obesity, unspecified; Z68.29 Body mass index [BMI] 29.0-29.9, adult; E87.6 Hypokalemia; E11.22 Type 2 diabetes mellitus with diabetic chronic kidney disease; N18.9 Chronic kidney disease, unspecified; E11.51 Type 2 diabetes mellitus with diabetic peripheral angiopathy without gangrene; E11.621 Type 2 diabetes mellitus with foot ulcer
CPT/HCPCS: 31500; 94002; 36415; 70450; 71045; 80048; 80053; 80202; 81001; 82140; 82803; 82962; 83605; 83735; 83880; 84145; 84436; 84443; 84484; 85007; 85025; 85651; 86140; 87040; 87070; 87077; 87186; 87205; 87486; 87581; 87633; 87798; 92610; 93005; 93306; 94003; 94640; 94760; 94761; 96365; 96366; 96367; 96375; 97116; 97162; 97165; 97530; 99283; 99284; J0456; J2405; J2704; J3370; Q9957; U0003

== ENCOUNTER → 2021-04-29 15:52 | Outpatient (CLI) | payer MEDICARE, SELFPAY ==
[2021-04-29 16:14] LABS: Basophils % 0.5 % (0.1-2.0); Eosinophils # 0.3 K/mm3 (0.0-0.4); Eosinophils % 4.4 % (0.1-12.0); Hematocrit 28.1 % (37.0-47.0); Hemoglobin 9.3 g/dL (12.2-16.2); Lymphocytes # 1.4 K/mm3 (0.7-4.5); Mean Corpuscular HGB Conc 33.3 g/dL (31.8-35.4); Mean Corpuscular Hemoglobin 33.1 pg (27.0-31.2); Mean Corpuscular Volume 99.3 fl (81-99); Mean Platelet Volume 9.8 fl (7.4-10.4); Monocytes # 0.7 K/mm3 (0.1-1.0); Monocytes % 10.4 % (1.7-9.3); Neutrophils # 4.3 K/mm3 (1.8-7.8); Neutrophils % 63.7 % (37.0-80.0); Platelet Count 199 K/mm3 (142-424); Red Blood Count 2.83 M/mm3 (4.20-5.40); Red Cell Distribution Width 14.5 % (11.5-17.5); White Blood Count 6.7 K/mm3 (4.8-10.8)
[2021-04-29 16:39] LABS: Chloride 100 mmol/L (98-107); Potassium 3.5 mmoL/L (3.5-5.1); Sodium 135 mmol/L (136-145)
[2021-04-29 16:42] LABS: Anion Gap 15.5 mEq/L (5-15); Blood Urea Nitrogen 53 mg/dl (7-17); Carbon Dioxide 23 mmol/L (22.0-30.0); Estimated Glomerular Filt Rate 9 ml/min (>60); GFR (African American) 10 ML/MIN (>60); Glucose 191 mg/dl (74-100)
== END ==
PROVIDERS: Visit Provider Internal Medicine Adolescent Medicine
DX: L03.116 Cellulitis of left lower limb (principal)
CPT/HCPCS: 80048; 85025

== ENCOUNTER → 2021-05-02 11:11 | Outpatient (CLI) | payer MEDICARE, SELFPAY ==
[2021-05-02 13:15] LABS: Chloride 99 mmol/L (98-107); Potassium 3.5 mmoL/L (3.5-5.1); Sodium 137 mmol/L (136-145)
[2021-05-02 13:18] LABS: Anion Gap 13.5 mEq/L (5-15); Blood Urea Nitrogen 50 mg/dl (7-17); Calcium 8.3 mg/dl (8.4-10.2); Carbon Dioxide 28 mmol/L (22.0-30.0); Estimated Glomerular Filt Rate 14 ml/min (>60); GFR (African American) 17 ML/MIN (>60); Glucose 182 mg/dl (74-100)
== END ==
PROVIDERS: Visit Provider Internal Medicine Adolescent Medicine
DX: R79.89 Other specified abnormal findings of blood chemistry (principal)
CPT/HCPCS: 36415; 80048

== ENCOUNTER → 2021-05-09 10:23 | Outpatient (CLI) | payer MEDICARE, SELFPAY ==
[2021-05-09 10:55] LABS: Chloride 103 mmol/L (98-107); Potassium 3.7 mmoL/L (3.5-5.1); Sodium 139 mmol/L (136-145)
[2021-05-09 10:58] LABS: Blood Urea Nitrogen 50 mg/dl (7-17); Estimated Glomerular Filt Rate 19 ml/min (>60); GFR (African American) 23 ML/MIN (>60)
[2021-05-09 10:59] LABS: Anion Gap 12.7 mEq/L (5-15); Calcium 8.6 mg/dl (8.4-10.2); Carbon Dioxide 27 mmol/L (22.0-30.0); Glucose 89 mg/dl (74-100)
== END ==
PROVIDERS: Visit Provider Internal Medicine Adolescent Medicine
DX: N18.4 Chronic kidney disease, stage 4 (severe) (principal)
CPT/HCPCS: 36415; 80048

== ENCOUNTER → 2021-09-09 16:40 | Outpatient (CLI) | payer MEDICARE, SELFPAY ==
[2021-09-09 16:47] LABS: Microscopic, Urine URINE MICROSCOPIC (MICROSCOPIC)
[2021-09-09 17:36] LABS: Appearance,Urine CLEAR (Clear); Bilirubin,Urine Negative (Negative); Blood, Urine TRACE-I (Negative); Color,Urine YELLOW (Yellow); Glucose,Urine (UA) Negative (Negative); Ketones,Urine Negative (Negative); Leukocyte Esterase,Urine TRACE (Negative); Nitrate,Urine Negative (Negative); PH,Urine 6.5 (5.0-8.5); Protein,Urine 3+ (Negative); Specific Gravity, Urine 1.025 (1.005-1.030); Urobilinogen,Urine 0.2 EU/dl (0.2)
[2021-09-09 17:42] LABS: Basophils % 0.4 % (0.1-2.0); Eosinophils # 0.1 K/mm3 (0.0-0.4); Eosinophils % 0.6 % (0.1-12.0); Hematocrit 30.9 % (37.0-47.0); Hemoglobin 9.8 g/dL (12.2-16.2); Lymphocytes # 1.5 K/mm3 (0.7-4.5); Lymphocytes % 18.5 % (10-50); Mean Corpuscular HGB Conc 31.8 g/dL (31.8-35.4); Mean Corpuscular Hemoglobin 31.9 pg (27.0-31.2); Mean Corpuscular Volume 100.1 fl (81-99); Mean Platelet Volume 7.8 fl (7.4-10.4); Monocytes # 0.7 K/mm3 (0.1-1.0); Monocytes % 8.6 % (1.7-9.3); Neutrophils # 5.8 K/mm3 (1.8-7.8); Neutrophils % 71.8 % (37.0-80.0); Platelet Count 271 K/mm3 (142-424); Red Blood Count 3.09 M/mm3 (4.20-5.40); Red Cell Distribution Width 13.9 % (11.5-17.5); White Blood Count 8.1 K/mm3 (4.8-10.8)
[2021-09-09 18:01] LABS: Chloride 104 mmol/L (98-107); Potassium 4.6 mmoL/L (3.5-5.1); Sodium 136 mmol/L (136-145)
[2021-09-09 18:03] LABS: Alanine Aminotransferase 11 U/L (12-78); Aspartate Amino Transferase 23 U/L (14-36); Blood Urea Nitrogen 35 mg/dl (7-17); Estimated Glomerular Filt Rate 21 ml/min (>60); GFR (African American) 25 ML/MIN (>60)
[2021-09-09 18:04] LABS: Albumin Level 3.1 g/dl (3.5-5.0); Alkaline Phosphatase 111 U/L (38-126); Anion Gap 8.6 mEq/L (5-15); Bilirubin,Total 0.2 mg/dl (0.2-1.3); Calcium 8.4 mg/dl (8.4-10.2); Carbon Dioxide 28 mmol/L (22.0-30.0); Chol/HDL Ratio 4.7 (1-3.5); Cholesterol 188 mg/dl (140-200); Glucose 53 mg/dl (74-100); HDL Cholesterol 40 mg/dl (40-60); Total Protein,Serum 6.1 g/dl (6.3-8.2); Triglycerides 240 mg/dl (30-150); VLDL Cholesterol 48 mg/dL (0-40)
[2021-09-09 18:15] LABS: Direct LDL Cholesterol 80.87 mg/dL (100-129)
[2021-09-09 19:10] LABS: Hemoglobin A1C 6.1 % (4.0-6.0)
== END ==
PROVIDERS: Visit Provider Internal Medicine Adolescent Medicine
DX: E11.9 Type 2 diabetes mellitus without complications (principal); N39.41 Urge incontinence; Z79.4 Long term (current) use of insulin
CPT/HCPCS: 36415; 80053; 80061; 81001; 82043; 83036; 85025; 87086

== ENCOUNTER → 2021-11-15 09:52 | Outpatient (CLI) | payer MEDICARE, SELFPAY ==
[2021-11-15 09:59] LABS: Microscopic, Urine URINE MICROSCOPIC (MICROSCOPIC)
[2021-11-15 11:01] LABS: Appearance,Urine CLEAR (Clear); Bilirubin,Urine Negative (Negative); Blood, Urine 2+ (Negative); Color,Urine YELLOW (Yellow); Glucose,Urine (UA) TRACE (Negative); Ketones,Urine Negative (Negative); Leukocyte Esterase,Urine Negative (Negative); Nitrate,Urine Negative (Negative); PH,Urine 6.5 (5.0-8.5); Protein,Urine 3+ (Negative); Specific Gravity, Urine 1.015 (1.005-1.030); Urobilinogen,Urine 0.2 EU/dl (0.2)
[2021-11-15 11:38] LABS: Bacteria,Urine 2+ /lpf
== END ==
PROVIDERS: Visit Provider Internal Medicine Adolescent Medicine
DX: R30.0 Dysuria (principal); B95.2 Enterococcus as the cause of diseases classified elsewhere; B96.1 Klebsiella pneumoniae [K. pneumoniae] as the cause of diseases classified elsewhere; B96.20 Unspecified Escherichia coli [E. coli] as the cause of diseases classified elsewhere
CPT/HCPCS: 81001; 87086; 87088; 87186

== ENCOUNTER 2021-12-09 16:00 | Outpatient (RCR) | payer MEDICARE, SELFPAY ==
--- NOTE | 2021-07-05 09:35 | HMH.PTOPWND ---
Rehab Outpt Wound Evaluation Rehab OP Wound Evaluation Start: 07/05/21 09:26 Freq: Status: Active Protocol: Document 07/05/21 09:27 KAYCE (Rec: 07/05/21 09:35 KAYCE [id number]) Electronically Signed By Karson León, PT 07/05/21 09:27 Subjective/History History History Pt is 70 yowf with multiple medical problems and chronic B LE edema who presents for edema treatment. She reports her symptoms have been worse for the past 1-2 mos after a recent severe illness. She reports pain in B LE worse with increased edema. She presents walking with rolator this date. Subjective Subjective Pain 6/10 in B lower legs this date, 1/4 tenderness to palpation B lower legs. 3+ pitting edema to B LE from mid -thigh distally. Lymphedema Eval Classification of Lymphedema Secondary Lymphedema Yes Stemmer's sign Stemmer's Sign yes Stage of Lymphedema Lymphedema stages Stage II (Pitting edema, increased fibrosis w/ decreased pitting) Skin Changes Dry Skin Yes Skin Folds Yes Redness Yes Brittle Uneven Nails Yes Discoloration of Skin Yes Other Changes Yes Pain Scale Pain Scale (0-10) 6 Affected Extremities Areas Affected by Lymphedema/Edema Right Lower Extremity,Left Lower Extremity Manual Lymphatic Drainage Treatment Area MLD Treatment Area Right Lower Extremity,Left Lower Extremity Wound Problems/Impairments Impairments Problems/Impairmments Palpation Tenderness,Impaired Range of Motion,Impaired Strength,Impaired Endurance, Impaired Transfers,Impaired Gait Pattern,Impaired Walking, Impaired Standing,Increased Edema,Lymphedema Present, Subjective C/O Pain,Impaired Self Care/Self Management Prognosis Rehab Potential Good Clinical Impression Consistent with Diagnosis Yes Short Term Goals Number of Weeks 4 Decreased Palpation Tenderness Yes Decrease Edema Yes Patient to Unde
--- NOTE | 2021-08-12 16:30 | HMH.RHREAS ---
Rehab Reassessment Rehab OP Re-assessment Start: 08/12/21 16:25 Freq: Status: Active Protocol: Document 08/12/21 16:25 KAYCE (Rec: 08/12/21 16:30 PHOANGIE [id number]) Electronically Signed By Karson León, PT 08/12/21 16:25 Rehab Re-assessment Subjective Subjective Pt reports she might have a little less tenderness, but has new onset blisters. She missed several of her last appontments due to illness. Objective Objective Notes B LE 3+ pitting edema with 1/4 tenderness to palpation noted . Assessment Progress Assessment Slower Than Expected Assessment Notes Pt has slightly improved edema with more consistent compression wear, but remains severely pitting to B LE. Patient goals met none Goals Not Met ST,2,3,4 LT,2,3, 4,5 Revised Goals none Plan Plan Continue per initial POC. Frequency of Therapy 2 x/wk Duration of therapy 8 wks Time and Billing Re-Eval Time 15 Re-Eval Billing Units 0 PHYSICIAN CERTIFICATION: I certify the specified therapy services for Marley Marie are required, authorized, and reviewed every 30 days.
--- NOTE | 2021-09-12 08:18 | HMH.RHREAS ---
Rehab Reassessment Rehab OP Re-assessment Start: 08/12/21 16:25 Freq: Status: Active Protocol: Document 09/12/21 08:13 KAYCE (Rec: 09/12/21 08:17 KAYCE [id number]) Electronically Signed By Karson León, PT 09/12/21 08:13 Rehab Re-assessment Subjective Subjective Pt reports no new c/o, does have some mild excoriation that she attributes to scratching or bumping into things. Objective Objective Notes B LE 3+ pitting edema remains. Mulitiple small sores noted, new onset bullae noted to anterior L chaudhry ~ 2.0 cm x 2.0 cm. L posterior heel open sore 1.0 cm x 1.0 cm, minimal serous drainage. Assessment Progress Assessment Slower Than Expected Assessment Notes Has shown some improvement in edema overall, but multiple co -morbidities make reduction difficult at best. New onset wounds represent a significant change in status this date. WIll continue wound care and edema relief as indicated. Patient goals met none Goals Not Met ST,2,3,4 LT,2,3, 4,5 Revised Goals none Plan Plan Continue per initial POC. Frequency of Therapy 2 x/wk Duration of therapy 8 wks Time and Billing Re-Eval Time 15 Re-Eval Billing Units 1 PHYSICIAN CERTIFICATION: I certify the specified therapy services for Marley Marie are required, authorized, and reviewed every 30 days.
--- NOTE | 2021-10-11 16:29 | HMH.RHREAS ---
Rehab Reassessment Rehab OP Re-assessment Start: 08/12/21 16:25 Freq: Status: Active Protocol: Document 10/11/21 16:27 KAYCE (Rec: 10/11/21 16:29 KAYCE [id number]) Electronically Signed By Karson León, PT 10/11/21 16:27 Rehab Re-assessment Subjective Subjective Pt with less tenderness to palpation. Objective Objective Notes B LE 3+ pitting edema remains. Mulitiple small sores noted with continued serous drainage noted. Assessment Progress Assessment Progressing as Expected Assessment Notes Continues to have exacerbated edema to B LE with multiple medical co-morbidities. Less pain is encouraging. Drainage remains large and serous. Patient goals met none Goals Not Met ST,2,3,4 LT,2,3, 4,5 Revised Goals none Plan Plan Continue per initial POC. Frequency of Therapy 2 x/wk Duration of therapy 8 wks Time and Billing Re-Eval Time 15 Re-Eval Billing Units 0 PHYSICIAN CERTIFICATION: I certify the specified therapy services for Marley Marie are required, authorized, and reviewed every 30 days.
--- NOTE | 2021-11-06 16:21 | HMH.RHREAS ---
Rehab Reassessment Rehab OP Re-assessment Start: 08/12/21 16:25 Freq: Status: Active Protocol: Document 11/06/21 16:19 KAYCE (Rec: 11/06/21 16:21 KAYCE [id number]) Electronically Signed By Karson León, PT 11/06/21 16:19 Rehab Re-assessment Subjective Subjective Pt with less tenderness and soreness to B Lower legs. Objective Objective Notes B LE 3+ pitting edema remains. Mulitiple small sores noted with continued serous drainage noted. Assessment Progress Assessment Slower Than Expected Assessment Notes Has shown decreased drainage and mildly decreased edema to B LE. Wound beds with less slough/fibrous base noted. Continues to be less compliant with home treatment than anticipated. Patient goals met none Goals Not Met ST,2,3,4 LT,2,3, 4,5 Revised Goals none Plan Plan Continue per initial POC. Frequency of Therapy 2 x/wk Duration of therapy 8 wks Time and Billing Re-Eval Time 15 Re-Eval Billing Units 1 PHYSICIAN CERTIFICATION: I certify the specified therapy services for Marley Marie are required, authorized, and reviewed every 30 days.
--- NOTE | 2021-12-09 16:04 | HMH.RHREAS ---
Rehab Reassessment Rehab OP Re-assessment Start: 08/12/21 16:25 Freq: Status: Active Protocol: Document 12/09/21 16:01 KAYCE (Rec: 12/09/21 16:04 KAYCE [id number]) Electronically Signed By Karson León, PT 12/09/21 16:01 Rehab Re-assessment Subjective Subjective Pt reports no pain and feels much better overall. Objective Objective Notes B LE 1+ pitting edema remains. One small sore noted with minimal serous drainage noted on R lateral calf.. Assessment Progress Assessment Progressing as Expected Assessment Notes Pt has shown significant change in edema at this point in treatment and is managing her compression garments at home well independently. She reports she is taking her medication as prescribed. Patient goals met ST,2,3,4 LT,2,3, 4,5 Revised Goals none Plan Plan Will D/C pt at this time. Frequency of Therapy 0 Duration of therapy 0 Time and Billing Re-Eval Time 14 Re-Eval Billing Units 1 PHYSICIAN CERTIFICATION: I certify the specified therapy services for Marley Marie are required, authorized, and reviewed every 30 days.
== END 2021-12-09 17:00 | disposition home or self-care (01) ==
LOC: PT 16:00
PROVIDERS: PCP Internal Medicine Adolescent Medicine; Visit Provider Internal Medicine Adolescent Medicine
DX: I89.0 Lymphedema, not elsewhere classified (principal)
CPT/HCPCS: 29580; 97140; 97162; 97164; 97597; 97598

== ENCOUNTER → 2022-02-01 15:38 | Outpatient (CLI) | payer MEDICARE, SELFPAY ==
[2022-02-01 17:02] LABS: Microscopic, Urine URINE MICROSCOPIC (MICROSCOPIC)
[2022-02-01 17:08] LABS: Appearance,Urine CLEAR (Clear); Bilirubin,Urine Negative (Negative); Blood, Urine TRACE-I (Negative); Color,Urine YELLOW (Yellow); Glucose,Urine (UA) TRACE (Negative); Ketones,Urine Negative (Negative); Leukocyte Esterase,Urine TRACE (Negative); Nitrate,Urine Negative (Negative); Protein,Urine 3+ (Negative); Specific Gravity, Urine 1.025 (1.005-1.030); Urobilinogen,Urine 0.2 EU/dl (0.2)
[2022-02-01 17:18] LABS: Basophils # 0.1 K/mm3 (0-0.2); Basophils % 0.8 % (0.1-2.0); Eosinophils % 0.6 % (0.1-12.0); Hematocrit 28.8 % (37.0-47.0); Hemoglobin 9.6 g/dL (12.2-16.2); Lymphocytes # 1.1 K/mm3 (0.7-4.5); Lymphocytes % 19.4 % (10-50); Mean Corpuscular HGB Conc 33.4 g/dL (31.8-35.4); Mean Corpuscular Hemoglobin 32.7 pg (27.0-31.2); Mean Corpuscular Volume 97.7 fl (81-99); Mean Platelet Volume 8.5 fl (7.4-10.4); Monocytes # 0.5 K/mm3 (0.1-1.0); Monocytes % 8.6 % (1.7-9.3); Neutrophils % 70.6 % (37.0-80.0); Platelet Count 226 K/mm3 (142-424); Red Blood Count 2.95 M/mm3 (4.20-5.40); Red Cell Distribution Width 14.3 % (11.5-17.5); White Blood Count 5.7 K/mm3 (4.8-10.8)
[2022-02-01 17:20] LABS: Creatinine,Urine Random 95 mg/dL (Not Estab.)
[2022-02-01 17:21] LABS: Albumin Level 3.1 g/dl (3.5-5.0); Anion Gap 13.4 mEq/L (5-15); Blood Urea Nitrogen 53 mg/dl (7-17); Calcium 8.3 mg/dl (8.4-10.2); Carbon Dioxide 26 mmol/L (22.0-30.0); Chloride 100 mmol/L (98-107); Estimated Glomerular Filt Rate 15 ml/min (>60); GFR (African American) 19 ML/MIN (>60); Glucose 183 mg/dl (74-100); Phosphorous 6.4 mg/dl (2.5-4.5); Potassium 4.4 mmoL/L (3.5-5.1); Sodium 135 mmol/L (136-145)
[2022-02-01 17:33] LABS: Intact Parathyroid Hormone 399.7 pg/mL (7.5-53.5)
[2022-02-01 17:36] LABS: Bacteria,Urine Trace /lpf; RBC,Urine Occasional #/hpf (0-3); WBC,Urine Occasional #/hpf (0-3)
== END ==
PROVIDERS: PCP Internal Medicine Adolescent Medicine; Visit Provider Internal Medicine Nephrology
DX: N18.4 Chronic kidney disease, stage 4 (severe) (principal); E55.9 Vitamin D deficiency, unspecified
CPT/HCPCS: 80069; 81001; 82306; 82570; 83970; 84155; 85025

== ENCOUNTER → 2022-02-03 12:42 | Outpatient (POV) | payer MEDICARE, SELFPAY | PROVIDERS: Visit Provider Internal Medicine Nephrology | DX: Z00.00 Encounter for general adult medical examination without abnormal findings (principal) ==

== ENCOUNTER 2022-02-28 17:56 | Emergency (ER) | payer MEDICARE, SELFPAY ==
--- NOTE | 2022-02-28 18:41 | XR_ITS ---
PROCEDURE INFORMATION: Exam: XR Right Hip Exam date and time: 02/28/2022 6:46 PM Age: 71 years old Clinical indication: Injury or trauma; Fall; Blunt trauma (contusions or hematomas); Right; Hip TECHNIQUE: Imaging protocol: Radiologic exam of the Right hip. Views: 2 or 3 views hip with pelvis when performed. COMPARISON: CR [id number] HIP RT 2-3V W/PELVIS IF PERFOR 07/29/2017 11:28 AM FINDINGS: Bones/joints: Minor acetabular arthritic changes. No acute fracture. Soft tissues: Vascular calcification. IMPRESSION: No acute findings. Minor acetabular arthritic changes.
--- NOTE | 2022-02-28 18:41 | XR_ITS ---
PROCEDURE INFORMATION: Exam: XR Right Tibia and Fibula Exam date and time: 02/28/2022 6:51 PM Age: 71 years old Clinical indication: Injury or trauma; Fall; Blunt trauma; Lower leg; Right TECHNIQUE: Imaging protocol: Radiologic exam of the Right tibia and fibula. Views: 2 views. COMPARISON: CT FOOT RT WO CON 01/02/2021 7:51 AM FINDINGS: Bones/joints: Oblique fracture, distal fibular metaphysis. Soft tissues: Normal. Vasculature: Vascular calcification. IMPRESSION: Fracture, distal fibular metaphysis.
--- NOTE | 2022-02-28 18:41 | XR_ITS ---
PROCEDURE INFORMATION: Exam: XR Right Foot Exam date and time: 02/28/2022 7:08 PM Age: 71 years old Clinical indication: Injury or trauma; Fall; Sprain or strain; Foot; Right TECHNIQUE: Imaging protocol: Radiologic exam of the Right foot. Views: 3 or more views. COMPARISON: CT FOOT RT WO CON 01/02/2021 7:51 AM FINDINGS: Bones/joints: Distal fibular metaphyseal fracture. Calcaneal spurring. 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 Soft tissues: Soft tissue swelling. Vasculature: Vascular calcification. IMPRESSION: 1. Distal fibular metaphyseal fracture with soft tissue swelling. 2. Other nonacute findings above.
--- NOTE | 2022-02-28 18:41 | XR_ITS ---
PROCEDURE INFORMATION: Exam: XR Right Knee Exam date and time: 02/28/2022 6:55 PM Age: 71 years old Clinical indication: Injury or trauma; Fall; Blunt trauma; Knee; Right TECHNIQUE: Imaging protocol: Radiologic exam of the Right knee. Views: 3 views. COMPARISON: CR XR ANKLE RT MIN 3V 02/28/2022 6:52 PM FINDINGS: Bones/joints: No acute fracture or dislocation. Minor osteoarthritic changes. Soft tissues: Vascular calcification. IMPRESSION: No acute findings. Minor osteoarthritic changes.
--- NOTE | 2022-02-28 18:41 | XR_ITS ---
PROCEDURE INFORMATION: Exam: XR Right Femur Exam date and time: 02/28/2022 6:48 PM Age: 71 years old Clinical indication: Injury or trauma; Fall; Blunt trauma; Thigh or upper leg; Right TECHNIQUE: Imaging protocol: Radiologic exam of the Right femur. Views: 2 views. COMPARISON: CR XR HIP RT 2-3V W/PELVIS 02/28/2022 6:46 PM FINDINGS: Bones/joints: Unremarkable. No acute fracture. Soft tissues: Vascular calcification. IMPRESSION: No acute findings.
--- NOTE | 2022-02-28 18:41 | XR_ITS ---
PROCEDURE INFORMATION: Exam: XR Right Ankle Exam date and time: 02/28/2022 6:52 PM Age: 71 years old Clinical indication: Injury or trauma; Fall; Blunt trauma; Ankle; Right TECHNIQUE: Imaging protocol: Radiologic exam of the Right ankle. Views: 3 or more views. COMPARISON: CR ANKR3 ANKLE-RT-3 VIEWS 03/06/2017 6:59 PM FINDINGS: Bones/joints: Fracture, distal fibular metaphysis. Calcaneal spurring. Soft tissues: Soft tissue swelling. Vasculature: Vascular calcification. IMPRESSION: 1. Distal fibular metaphyseal fracture with soft tissue swelling. 2. Other nonacute findings above.
[2022-02-28 18:42] VITALS: BP 139/63; PULSE 83; RESP 16; TEMP 37.1; O2SAT 96; BMI 32.9
--- NOTE | 2022-02-28 19:26 | HMH.EDUTC ---
[facility] [place] Impression: Closed fracture of right distal fibula Qualifiers: Encounter type: initial encounter Fracture morphology: unspecified fracture morphology Qualified Code(s): S82.831A - Other fracture of upper and lower end of right fibula, initial encounter for closed fracture Fall Qualifiers: Encounter type: initial encounter Qualified Code(s): W19.XXXA - Unspecified fall, initial encounter Disposition: Home, Self-Care Condition on Discharge: Good Instructions: Fibula Shaft Fracture Additional Instructions: Rest the extremity, apply ice for 15 minutes as tolerated three or four times per day, Elevate the extremity as tolerated while you are resting. Take tylenol for pain. If this is not working then try to contact your primary care physician to see if they will order you something stronger. Follow up with Dr. Light (orthopedics). I put in a referral but you need to call his office and schedule an appointment. That office will not be open until next Thursday. Follow up with your regular doctor. GO TO THE ER FOR ANY WORSENING SYMPTOMS Referrals: Royer Parrish MD [Primary Care Provider] - Praneeth Light JR, MD [Physician] - Time of Disposition: 20:24 Medical Decision Making - Medical Records Medical records reviewed: No: I reviewed the patient's medical records. - Donnell Inquiry Pt receiving controlled substance: No Vital Signs: 02/28/22 18:42 02/28/22 20:36 Temperature 98.7 F 98.7 F Temperature Source Oral Pulse Rate 83 Pulse Rate [Left] 83 Respiratory Rate 16 16 Blood Pressure 139/63 Blood Pressure [Right Arm] 139/63 Blood Pressure Mean [Right Arm] 88 02 Sat by Pulse Oximetry 96 - Radiology Data #1 Image(s): Ankle Image Reviewed: Yes I reviewed the patient's radiology image, Yes I have reviewed radiologist's interpretation Preliminary Findings: Abnormal PROCEDURE INFORMATION: Exam: XR Right Foot Exam date and time: 02/28/2022 7:08 PM Age: 71 years old Clinical indication: Injury or trauma; Fall; Sprain or strain; Foot; Right TECHNIQUE: Imaging protocol: Radiologic exam of the Right foot. Views: 3 or more views. COMPARISON: CT FOOT RT WO CON 01/02/2021 7:51 AM FINDINGS: Bones/joints: Distal fibular metaphyseal fracture. Calcaneal spurring. 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 Soft tissues: Soft tissue swelling. Vasculature: Vascular calcification. IMPRESSION: 1. Distal fibular metaphyseal fracture with soft tissue swelling. 2. Other nonacute findings above. Medical Decision Narrative: I spoke to Dr. Light regarding her injury and x-rays via telephone. [facility] [place] - General Stated complaint: AO06/27 r foot injury Time Seen by Provider: 02/28/22 19:26 Description of Symptoms (Recalled from Triage Doc. by RN): patient comes in for right leg, foot, and ankle pain. patient had a fall on thursday. HEENT Symptoms (Recalled from RN notes): No Resp Symptoms (Recalled from RN notes): No Skin Symptoms (Recalled from RN notes): No MS Symptoms (Recalled from RN notes): Yes Functional Status (Recalled from RN notes): wnl - History of Present Illness Provider Complaint: 5 days ago she fell. Her daughter caught her and lowered her to the ground but in the process her right foot and ankle got twisted up beneath her. Since then, she has had right leg pain. Her worst pain is located in her ankle, but she is hurting from her femur down. - Related Data Home Medications Medication Instructions Recorded Confirmed aspirin 81 mg tablet,delayed 81 mg PO DAILY 09/17/17 10/10/21 release clopidogrel 75 mg tablet 75 mg PO DAILY 09/17/17 10/10/21 furosemide 40 mg tablet 40 mg PO BID 09/17/17 10/10/21 sitagliptin 50 mg tablet 50 mg PO DAILY 09/17/17 10/10/21 famotidine 20 mg tablet 20 mg PO BID tab 09/18/17 10/10/21 Pravastatin Sodium [Pravachol] 80 mg PO HS 05/28/18 10/10/21 cit
[2022-02-28 20:36] VITALS: BP 139/63; PULSE 83; RESP 16; TEMP 37.1
== END 2022-02-28 20:37 | disposition home or self-care (01) ==
PROVIDERS: Emergency Provider Nurse Practitioner Family; PCP Internal Medicine Adolescent Medicine
DX: S82.831A Other fracture of upper and lower end of right fibula, initial encounter for closed fracture (principal); W19.XXXA Unspecified fall, initial encounter
CPT/HCPCS: 73502; 73552; 73562; 73590; 73610; 73630; 99212; G0463

== ENCOUNTER → 2022-04-04 14:39 | Outpatient (CLI) | payer MEDICARE, SELFPAY ==
--- NOTE | 2022-04-04 14:46 | XR_ITS ---
FINAL REPORT CLINICAL HISTORY: ankle fracture, follow up out of cast COMPARISON: February 28, 2022 FINDINGS: RIGHT ANKLE: Three views of the right ankle were obtained. There is a subacute oblique fracture of the distal fibula metaphysis. Bony alignment is stable. There is increased bone formation. Mild degenerative changes are present. There are calcaneal spurs. There is diffuse soft tissue swelling. Vascular calcifications are present. IMPRESSION: Subacute distal fibular fracture with increased bone formation. Reviewed, Interpreted and Dictated by Ed Erazo III, MD Transcribed by Ori Cartwright Authenticated and . [facility]
== END ==
PROVIDERS: PCP Internal Medicine Adolescent Medicine; Visit Provider Orthopaedic Surgery
DX: S82.891A Other fracture of right lower leg, initial encounter for closed fracture (principal)
CPT/HCPCS: 73610

== ENCOUNTER 2022-04-04 16:05 | Outpatient (RCR) | payer MEDICARE, SELFPAY | END 2022-04-04 17:00 | disposition home or self-care (01) | LOC: PT 16:05 | PROVIDERS: Visit Provider Orthopaedic Surgery | DX: S82.891D Other fracture of right lower leg, subsequent encounter for closed fracture with routine healing (principal) | CPT/HCPCS: 97760 ==

== ENCOUNTER → 2022-07-04 10:56 | Outpatient (CLI) | payer MEDICARE, SELFPAY ==
--- NOTE | 2022-07-04 11:00 | XR_ITS ---
FINAL REPORT CLINICAL HISTORY: ankle fracture COMPARISON: March 2022 FINDINGS: RIGHT ANKLE: Three views of the right ankle were obtained. There is osteopenia. Again seen is a fracture of the distal fibula metaphysis with evidence of healing. There are mild degenerative changes. There is calcaneal spurring. Vascular calcifications are present. There is soft tissue swelling. IMPRESSION: Stable distal fibula fracture. Reviewed, Interpreted and Dictated by Ed Erazo III, MD Transcribed by Ori Cartwright Authenticated and [facility]
[2022-07-04 13:44] LABS: Basophils % 0.3 % (0.1-2.0); Eosinophils % 0.2 % (0.1-12.0); Hematocrit 29.3 % (37.0-47.0); Hemoglobin 9.7 g/dL (12.2-16.2); Lymphocytes # 1.5 K/mm3 (0.7-4.5); Lymphocytes % 13.3 % (10-50); Mean Corpuscular HGB Conc 33.2 g/dL (31.8-35.4); Mean Corpuscular Hemoglobin 32.8 pg (27.0-31.2); Mean Corpuscular Volume 98.9 fl (81-99); Mean Platelet Volume 8.5 fl (7.4-10.4); Monocytes # 0.9 K/mm3 (0.1-1.0); Monocytes % 7.6 % (1.7-9.3); Neutrophils # 8.9 K/mm3 (1.8-7.8); Neutrophils % 78.6 % (37.0-80.0); Platelet Count 221 K/mm3 (142-424); Red Blood Count 2.96 M/mm3 (4.20-5.40); Red Cell Distribution Width 14.1 % (11.5-17.5); White Blood Count 11.3 K/mm3 (4.8-10.8)
[2022-07-04 14:51] LABS: Albumin Level 3.5 g/dl (3.5-5.0); Anion Gap 14.1 mEq/L (5-15); Blood Urea Nitrogen 61 mg/dl (7-17); Calcium 8.8 mg/dl (8.4-10.2); Carbon Dioxide 27 mmol/L (22.0-30.0); Chloride 101 mmol/L (98-107); Estimated Glomerular Filt Rate 17 ml/min (>60); GFR (African American) 21 ML/MIN (>60); Glucose 155 mg/dl (74-100); Phosphorous 4.2 mg/dl (2.5-4.5); Potassium 4.1 mmoL/L (3.5-5.1); Sodium 138 mmol/L (136-145)
== END ==
PROVIDERS: PCP Internal Medicine Adolescent Medicine; Visit Provider Internal Medicine Nephrology
DX: S82.891A Other fracture of right lower leg, initial encounter for closed fracture (principal); N18.5 Chronic kidney disease, stage 5; I10 Essential (primary) hypertension; N25.0 Renal osteodystrophy
CPT/HCPCS: 36415; 73610; 80069; 85025

== ENCOUNTER 2022-07-08 19:01 | Inpatient (IN) | payer MEDICARE, SELFPAY ==
[2022-07-08 19:01] VITALS: BP 145/73; PULSE 105; RESP 28; TEMP 37.8; O2SAT 78; BMI 34.7
[2022-07-08 19:15] LABS: ABG Base Excess -9.7 mmol/L (-2.4-2.3); ABG HCO3 20.7 mmhg (22.0-26.0); ABG Oxygen Saturation 80 % (90-100); ABG PO2 61.3 mmhg (80-100)
[2022-07-08 19:17] LABS: Allen's Test Y
[2022-07-08 19:18] LABS: ABG PCO2 76.2 mmhg (35.0-45.0); ABG PH 7.05 mmol/L (7.35-7.45)
[2022-07-08 19:33] VITALS: BMI 32.0
--- NOTE | 2022-07-08 19:33 | XR_ITS ---
PROCEDURE INFORMATION: Exam: XR Chest Exam date and time: 07/08/2022 7:47 PM Age: 71 years old Clinical indication: Device placement; Ett placement (vent status); Additional info: Intubation TECHNIQUE: Imaging protocol: Radiologic exam of the chest. Views: 1 view. COMPARISON: CR XR CHEST PORTABLE 04/14/2021 5:15 AM FINDINGS: Tubes, catheters and devices: Endotracheal tube terminating 5 cm above the adonay. Lungs: There are bilateral patchy and consolidative airspace opacities in lower lobes and right upper lobe. Pleural spaces: Unremarkable. No pleural effusion. No pneumothorax. Heart/Mediastinum: No cardiomegaly. Bones/joints: Sternotomy wires and mediastinal surgical clips are present, consistent with previous coronary arterial bypass grafting. Other findings: Coarse focus of calcification projected over the left upper quadrant. IMPRESSION: 1. Satisfactory placement of endotracheal tube. 2. Findings concerning for multifocal pneumonia. Acute respiratory distress syndrome is in the differential.
--- NOTE | 2022-07-08 19:37 | HMH.EDSOB ---
Discharge Plan Disposition Patient Disposition: Still a Patient Condition: Critical Prescriptions Prescriptions: No Action aspirin [Adult Low Dose Aspirin] 81 mg tablet,delayed release (DR/EC) 81 mg PO DAILY clopidogrel 75 mg tablet 75 mg PO DAILY furosemide 40 mg tablet 40 mg PO BID Label Comments: Patient takes a second 40 mg dose if needed sitagliptin phosphate [Januvia] 50 mg tablet 50 mg PO DAILY famotidine 20 mg tablet 20 mg PO BID citalopram 20 mg tablet 20 mg PO DAILY 90 Days diclofenac sodium [Voltaren] 1 % gel 4 g TOPICAL QID PRN (Reason: pain) Qty: 30 2RF Rx Instructions: apply to single knee, ankle, foot; gently massage into area; for foot includes sole/toes/top of foot losartan 100 mg tablet 100 mg PO DAILY insulin NPH and regular human 100 unit/mL (70-30) insulin pen 20 unit SQ BID amlodipine 5 mg tablet 2.5 mg PO BID carvedilol 12.5 mg tablet 6.25 mg PO HS gabapentin 100 mg capsule 100 mg PO TID cyanocobalamin (vitamin B-12) 1,000 mcg/mL solution 1,000 mcg IM QMONTH tramadol 50 mg tablet 50 mg PO TID PRN hydrocortisone 2.5 % lotion TOPICAL mupirocin 2 % ointment TOPICAL oxycodone 5 mg tablet 5 mg PO Q8H PRN (Reason: pain) Qty: 30 0RF pravastatin 80 MG tablet 80 mg PO HS cholecalciferol (vitamin D3) 1,000 UNIT tablet 1,000 unit PO MONTHLY omeprazole 20 MG capsule,delayed release(DR/EC) 20 mg PO BID metolazone 5 MG tablet 5 mg PO DAILY Referrals Follow up/Referrals: Royer Parrish MD [Primary Care Provider] - See instructions Clinical Impressions Clinical Impression: Respiratory failure Discharge ED Provider: Darell Meehan Resp/SOB HPI General Stated Complaint: respiratory distress Time Seen by Provider: 07/08/22 19:37 Limitations: Physical Limitations History of Present Illness soa started at home, EMS called, duo/o2 in route here, worse now, hypoxic Complaint: shortness of breath Onset (ago): hour(s) Severity: severe Consistency/Duration: constant Relieving factors: nothing Treatment prior to arrival: oxygen Related Data Home Medications Medication Instructions Recorded Confirmed aspirin 81 mg tablet,delayed 81 mg PO DAILY Heart disease 09/17/17 07/04/22 release (Adult Low Dose Aspirin) clopidogrel 75 mg tablet 75 mg PO DAILY PLATELET INHIBITOR 09/17/17 07/04/22 furosemide 40 mg tablet 40 mg PO BID Fluid 09/17/17 07/04/22 sitagliptin phosphate 50 mg tablet 50 mg PO DAILY Diabetes 09/17/17 07/04/22 (Januvia) famotidine 20 mg tablet 20 mg PO BID Acid reflux 09/18/17 07/04/22 pravastatin 80 mg tablet 80 mg PO HS Cholesterol 05/28/18 07/04/22 citalopram 20 mg tablet 20 mg PO DAILY Depression 90 days 09/16/18 07/04/22 cholecalciferol (vitamin D3) 25 1,000 unit PO MONTHLY Supplement 05/12/19 07/04/22 mcg (1,000 unit) tablet losartan 100 mg tablet 100 mg PO DAILY Hypertension 10/04/19 07/04/22 omeprazole 20 mg capsule,delayed 20 mg PO BID Acid reflux 01/10/20 07/04/22 release insulin NPH-regular 70-30 U-100 20 unit SQ BID Diabetes 02/09/20 07/04/22 insulin 100 unit/mL subcutaneous pen amlodipine 5 mg tablet 2.5 mg PO BID BP 10/23/20 07/04/22 carvedilol 12.5 mg tablet 6.25 mg PO HS BP 10/23/20 07/04/22 metolazone 5 mg tablet 5 mg PO DAILY BLOOD PRESSURE 04/11/21 07/04/22 cyanocobalamin (vitamin B-12) 1,000 mcg IM QMONTH 09/19/21 07/04/22 1,000 mcg/mL injection solution gabapentin 100 mg capsule 100 mg PO TID 09/19/21 07/04/22 hydrocortisone 2.5 % lotion topical 09/19/21 07/04/22 mupirocin 2 % topical ointment topical 09/19/21 07/04/22 tramadol 50 mg tablet 50 mg PO TID PRN 09/19/21 07/04/22 Previous Rx's Medication Instructions Recorded diclofenac sodium 1 % topical gel 4 g topical QID PRN pain #30 grams 05/10/19 (Voltaren) oxycodone 5 mg tablet 5 mg PO Q8H PRN pain #30 tabs 04/04/22 Allergi
--- NOTE | 2022-07-08 19:53 | ECG_ITS ---
APPROVED REPORT Exam: Resting ECG HR:122 bpm ECG Measurements Heart Rate 122 AXES MT 151 P 68 QRSd 143 QRS 2 QT 329 T 145 QTc 401 Conclusion SINUS TACHYCARDIA LEFT BUNDLE BRANCH BLOCK [120+ ms QRS DURATION, 80+ ms Q/S IN V1/V2, 85+ ms R IN I/aVL/V5/V6] ABNORMAL ECG UNCONFIRMED REPORT Electronically signed by : Royer Parrish MD 07/09/2022 22:05:19
[2022-07-08 20:17] LABS: Alanine Aminotransferase 28 U/L (12-78); Albumin Level 3.6 g/dl (3.5-5.0); Albumin/Globulin Ratio 1.1 (1.1-1.8); Alkaline Phosphatase 182 U/L (38-126); Anion Gap 19.5 mEq/L (5-15); Aspartate Amino Transferase 36 U/L (14-36); Bilirubin,Total 0.8 mg/dl (0.2-1.3); Blood Urea Nitrogen 47 mg/dl (7-17); Carbon Dioxide 24 mmol/L (22.0-30.0); Chloride 90 mmol/L (98-107); Creatinine Clearance Estimated 22 mL/min (50-200); Estimated Glomerular Filt Rate 16 ml/min (>60); GFR (African American) 19 ML/MIN (>60); Globulin 3.2 g/dL (1.3-3.2); Potassium 3.5 mmoL/L (3.5-5.1); Sodium 130 mmol/L (136-145); Total Protein,Serum 6.8 g/dl (6.3-8.2)
[2022-07-08 20:26] LABS: Basophils # 0.3 K/mm3 (0-0.2); Basophils % 0.9 % (0.1-2.0); Hematocrit 36.4 % (37.0-47.0); Hemoglobin 11.2 g/dL (12.2-16.2); Lymphocytes % 19.4 % (10-50); Mean Corpuscular HGB Conc 30.9 g/dL (31.8-35.4); Mean Corpuscular Hemoglobin 31.4 pg (27.0-31.2); Mean Corpuscular Volume 101.8 fl (81-99); Mean Platelet Volume 8.7 fl (7.4-10.4); Monocytes # 1.9 K/mm3 (0.1-1.0); Monocytes % 7.3 % (1.7-9.3); Neutrophils # 18.8 K/mm3 (1.8-7.8); Neutrophils % 72.3 % (37.0-80.0); Platelet Count 475 K/mm3 (142-424); Red Blood Count 3.57 M/mm3 (4.20-5.40); Red Cell Distribution Width 13.4 % (11.5-17.5)
--- NOTE | 2022-07-08 20:31 | HMH.EDSOB ---
Discharge Plan Disposition Patient Disposition: Admitted As Inpatient Condition: Critical Clinical Impressions Clinical Impression: Respiratory failure, Diabetes mellitus, Stage 4 chronic kidney disease, CAP (community acquired pneumonia), Complete left bundle branch block (LBBB), Severe sepsis with acute organ dysfunction, Enteritis, Elevated troponin Discharge ED Provider: Darell Meehan Resp/SOB HPI General Chief Complaint: Shortness of Breath/Dyspnea Stated Complaint: respiratory distress Time Seen by Provider: 07/08/22 19:37 Mode of Arrival: EMS Source of Information: Patient and EMS Limitations: Physical Limitations Description of Symptoms (Recalled from ER Triage Doc. by RN): pt brought in per EMS pt family states the pt has been congested for aprox 3 days tonight the pt told the family that she couldnt breathe and to call 911 and the pt arrives on a duo neb mask o2 79% pt family reports that pt family reports the pt has also c/o diarrhea and generaly feling badly History of Present Illness pt with progressive sob and cough over the last 3 days and brought to ed with resp distress - MD Complaint: shortness of breath Onset (ago): day(s) Severity: severe Relieving factors: nothing Known history of: congestive heart failure and diabetes Treatment prior to arrival: oxygen Related Data Home oxygen amount: none Home Medications Medication Instructions Recorded Confirmed aspirin 81 mg tablet,delayed 81 mg PO DAILY Heart disease 09/17/17 07/08/22 release (Adult Low Dose Aspirin) clopidogrel 75 mg tablet 75 mg PO DAILY PLATELET INHIBITOR 09/17/17 07/08/22 furosemide 40 mg tablet 40 mg PO BID Fluid 09/17/17 07/08/22 sitagliptin phosphate 50 mg tablet 50 mg PO DAILY Diabetes 09/17/17 07/08/22 (Januvia) famotidine 20 mg tablet 20 mg PO BID Acid reflux 09/18/17 07/08/22 pravastatin 80 mg tablet 80 mg PO HS Cholesterol 05/28/18 07/08/22 citalopram 20 mg tablet 20 mg PO DAILY Depression 90 days 09/16/18 07/08/22 cholecalciferol (vitamin D3) 25 1,000 unit PO MONTHLY Supplement 05/12/19 07/08/22 mcg (1,000 unit) tablet losartan 100 mg tablet 100 mg PO DAILY Hypertension 10/04/19 07/08/22 omeprazole 20 mg capsule,delayed 20 mg PO BID Acid reflux 01/10/20 07/08/22 release insulin NPH-regular 70-30 U-100 20 unit SQ BID Diabetes 02/09/20 07/08/22 insulin 100 unit/mL subcutaneous pen amlodipine 5 mg tablet 2.5 mg PO BID BP 10/23/20 07/08/22 carvedilol 12.5 mg tablet 6.25 mg PO HS BP 10/23/20 07/08/22 metolazone 5 mg tablet 5 mg PO DAILY BLOOD PRESSURE 04/11/21 07/08/22 cyanocobalamin (vitamin B-12) 1,000 mcg IM QMONTH Supplement 09/19/21 07/08/22 1,000 mcg/mL injection solution gabapentin 100 mg capsule 100 mg PO TID nerve pain 09/19/21 07/08/22 tramadol 50 mg tablet 50 mg PO TID PRN Pain 09/19/21 07/08/22 Allergies Allergy/AdvReac Type Severity Reaction Status Date / Time fentanyl [FENTANYL] Allergy Unknown Verified 07/04/22 11:36 latex [LATEX] Allergy Unknown Verified 07/04/22 11:36 codeine AdvReac Unknown Verified 07/04/22 11:36 [facility] Medical History CHF (congestive heart failure) Coronary artery disease Edema Hyperlipidemia Hypertension Recent myocardial infarction Stage 4 chronic kidney disease Social History Smoking Status: Never smoker second hand exposure: No alcohol intake: never counseling provided: none substance use type: denies use current occupational status: retired and disabled Travel in the last 8 weeks: None household members: family housing: house current occupational exposures/hazards: No caffeine: No ROS Obtained: Yes unobtainable due to mental status Physical Exam General General appearance: in distress and other (obtunded - ) Head Head exam: atraumatic Eye Eye exam: Present PERRL and EOMI; Absent scleral icterus ENT ENT exam: P
[2022-07-08 20:34] LABS: MANUAL DIFFERENTIAL MANUAL DIFFERENTIAL (MANUAL DIFF)
[2022-07-08 20:36] LABS: Procalcitonin 0.813 ng/mL (0.0-2.0)
[2022-07-08 20:39] LABS: ABG Base Excess -4.6 mmol/L (-2.4-2.3); ABG HCO3 21.2 mmhg (22.0-26.0); ABG Oxygen Saturation 96 % (90-100); ABG PCO2 40.3 mmhg (35.0-45.0); ABG PH 7.34 mmol/L (7.35-7.45); ABG PO2 86.7 mmhg (80-100); ABG TCO2 22.4 mmhg (23-27)
[2022-07-08 20:40] LABS: Allen's Test Non Applicable; Oxygen 50 %; PEEP 5; Source Right Radial; Tidal Volume 420; Vent Rate 18
[2022-07-08 20:43] LABS: Troponin I 1.04 ng/ml (0.00-0.034)
--- NOTE | 2022-07-08 20:43 | PC.NURSE ---
notified earlene of critical trop 1.04 and glucose 566
[2022-07-08 20:44] LABS: Glucose 566 mg/dl (74-100)
--- NOTE | 2022-07-08 20:45 | PC.NURSE ---
Dr. Davon littlejohn
--- NOTE | 2022-07-08 20:53 | PC.NURSE ---
MD ordered 500mg iv levaquin and a pharmacy consult to dose cefepime.
--- NOTE | 2022-07-08 20:59 | PC.NURSE ---
had initially ordered 500IV levaquin. Per Jamir at [facility] the loading dose of Levaquin should be 750. notified. Order will be entered per Jamir at [facility].
--- NOTE | 2022-07-08 21:02 | PC.NURSE ---
propofol initiated 19:38 @ 5 mcg 19:48 up @10 mgc 19:59 up @15 mcg 20:09 up @20 mcg 20:20 up @25 mcg 20:30 up @30 mcg pt holding the sedation pt titrated back down to 25mcg 20:50
[2022-07-08 21:03] LABS: Appearance,Urine SL CLOUDY (Clear); Bilirubin,Urine Negative (Negative); Blood, Urine 2+ (Negative); Color,Urine YELLOW (Yellow); Glucose,Urine (UA) 3+ (Negative); Ketones,Urine Negative (Negative); Leukocyte Esterase,Urine Negative (Negative); Microscopic, Urine URINE MICROSCOPIC (MICROSCOPIC); Nitrate,Urine Negative (Negative); PH,Urine 5.5 (5.0-8.5); Protein,Urine 3+ (Negative); Specific Gravity, Urine 1.025 (1.005-1.030); Urobilinogen,Urine 0.2 EU/dl (0.2)
[2022-07-08 21:13] LABS: Lactic Acid 2.7 mmol/L (0.7-2.1)
[2022-07-08 21:14] VITALS: BMI 34.7
[2022-07-08 21:18] LABS: Bacteria,Urine 4+ /lpf
[2022-07-08 21:19] LABS: NT Pro Brain Natriuretic Pep. 38900 pg/mL (0-125)
[2022-07-08 21:43] LABS: Coronavirus 19, PCR Not Detected (NotDetected); Influenza A, PCR Not Detected (NotDetected); Influenza B, PCR Not Detected (NotDetected)
[2022-07-08 21:55] VITALS: RESP 18; O2SAT 100
[2022-07-08 22:06] LABS: Lymphocytes % 24 % (10-50); Monocytes % 5 % (2-9); Neutrophils % 71 % (42-76); Total Cells Counted 100
[2022-07-08 22:07] LABS: Platelet Estimate Normal; Tear Drop Cells 1+
[2022-07-08 22:39] VITALS: BP 132/67; PULSE 94; RESP 18; TEMP 37.9; O2SAT 99
--- NOTE | 2022-07-08 23:17 | PC.NURSE ---
Pt arrived to floor via stretcher @ [id number].
[2022-07-08 23:35] VITALS: PULSE 90
--- NOTE | 2022-07-08 23:45 | PC.NURSE ---
Propofol increased to 30mcg @ at this time for pt comfort/sedation.
[2022-07-09] VITALS (33 sets, daily range): BP systolic 116–156; BP diastolic 52–82; PULSE 55–96; RESP 14–19; TEMP 37–38.5; O2SAT 96–100; BMI 34.7; BMI 35.7
[2022-07-09 00:26] LABS: POC Glucose,Bedside 400 (70-110)
--- NOTE | 2022-07-09 00:30 | PC.NURSE ---
Notified Dr. Mays of critical labs
[2022-07-09 00:34] LABS: Acetone, Serum (Rapid) None Detected (None Detect)
--- NOTE | 2022-07-09 00:40 | PC.NURSE ---
Received call back from [employer], Insulin Regular NPH 70/30 pen is not in the [employer] dispensing machines. Stated what was available was Insulin Regular NPH 75/25 pen. Will address with MD on am rounds, as pt is not scheduled to receive this dose until 0900.
--- NOTE | 2022-07-09 00:41 | PC.NURSE ---
Addendum entered by Reny Negron RN 07/09/22 00:48: Received call back from [employer], Insulin Regular NPH 70/30 pen is not in the [employer] dispensing machines. Stated what was available was Insulin Regular NPH 75/25 pen. Will address with MD on am rounds, as pt is not scheduled to receive this dose until 0900. Original Note: 0016 - Notified Dr. Mays (salesperson burial needs for Dr. Parrish) FSBS in ED was 566. No insulin coverage given. Pt FSBS on arrival to unit is 400. Pt received a dose of home med insulin regular nph 70/30 pen (30 units total) prior to arrival to ED. No acetone level ordered. Pt lung sounds reveal significant amount of crackles, pt sounds very wet . Pt needing frequent ETT suctioning, sputum pink and frothy. Pt BNP level was 38,900 in ED, and received a 2L NS bolus, as well as additional 600ml of NS. Has NS ordered at 125ml/hr. Pt is having frequent high pressure alarm on vent. Verbal orders given at this time: - Serum Acetone Level STAT - Change NED Insulin Lispro to HISS Insulin Lispro and administer per ss for FSBS of 400. - Order Insulin Regular NPH 70/30 20 units BID as pt takes at home to start at 0900 - 40mg IV Lasix xonce, now - Change IVF rate from NS @ 125ml/hr to NS @ 100ml/hr. Monitor urine output hourly after dose of lasix. All orders repeated and verified and faxed to [facility].
[2022-07-09 00:55] LABS: Reflex Lactic Add Lactic Reflex
[2022-07-09 01:54] LABS: Lactic Acid Follow Up (RFLX 1) 2.1 mmol/L (0.7-2.1)
[2022-07-09 03:41] LABS: Reflex Lactic (2 hrs) Add Lactic Reflex
--- NOTE | 2022-07-09 03:58 | ECG_ITS ---
APPROVED REPORT Exam: Resting ECG HR:84 bpm ECG Measurements Heart Rate 84 AXES FL 182 P 60 QRSd 194 QRS -19 QT 423 T 44 QTc 464 Conclusion SINUS RHYTHM LEFT BUNDLE BRANCH BLOCK [120+ ms QRS DURATION, 80+ ms Q/S IN V1/V2, 85+ ms R IN I/aVL/V5/V6] ABNORMAL ECG UNCONFIRMED REPORT Electronically signed by : Royer Parrish MD 07/09/2022 22:04:27
[2022-07-09 04:07] LABS: ABG Base Excess -1.4 mmol/L (-2.4-2.3); ABG HCO3 21.8 mmhg (22.0-26.0); ABG Oxygen Saturation 98 % (90-100); ABG PCO2 28.6 mmhg (35.0-45.0); ABG PO2 121.7 mmhg (80-100); ABG TCO2 22.7 mmhg (23-27)
[2022-07-09 04:08] LABS: Allen's Test Non Applicable; Oxygen 50 %; PEEP 5; Source Left Radial; Tidal Volume 420; Vent Rate 18
--- NOTE | 2022-07-09 04:33 | PC.NURSE ---
0350 - Pt heart rate dropped to the 50's on telemetry, O2 sensor wasn't picking up. This RN went in to assess patient at this time, noted to have a very faint heart beat auscultated, and very faint pulse felt by palpation. This was a significant change of patient status from previous assessment, Rapid Red response initiated at 0353.
--- NOTE | 2022-07-09 04:39 | PC.NURSE ---
Rapid Response Red Documentation 0353 - Rapid Response Red initiated at this time. Responding staff members: Bryon, RN, Vadim Doran, RN, Lissett Mays, RN, Kim, RN, Meli Giordano, RN, Shiloh De La Cruz, RN, Lab, RT, Radiology 0354 - crash cart in room and defib pads placed on patient; HR 56, BP 144/74, Pulse ox 92% 0355 - Garth Hadley APRN at bedside in response to RR 0356 - HR 85, BP 156/74; Dr Meehan at bedside; Dr Mays paged [phone] - EKG completed at this time, no life threatening arrhythmia detected 0358 - FSBS 269 0400 - ABG Drawn per verbal order of Garth Hadley APRN 0402 - Dr. Mays paged again 0403 - Decreased Propofol to 15mcg/kg/min New orders from Garth Hadley APRN ABG now, Repeat at 0700 PTT STAT Decrease IVF to 75ml/hr Initiate Heparin gtt Cardiology consult 0408 - Dr. Mays called back, informed of patient change in condition, and of RR being called. Dr. Mays spoke with Garth Hadley APRN via phone, and concurred with current orders. 0415 - Vent settings changed per ABG results: Garth Hadley APRN ordered to decrease Fi02 to 40%, Rate 16. 0417 - No further interventions required at this time. Current VS: HR 85, BP 158/77; O2 sat 96, will continue to monitor. Pt will open her eyes to light touch and verbal coaching, withdrawals to painful stimuli. pt daughter remained at bedside and updated on plan of care and interventions/new orders
[2022-07-09 05:39] LABS: Anion Gap 13.6 mEq/L (5-15); Blood Urea Nitrogen 46 mg/dl (7-17); Calcium 8.4 mg/dl (8.4-10.2); Carbon Dioxide 27 mmol/L (22.0-30.0); Chloride 96 mmol/L (98-107); Creatinine Clearance Estimated 27 mL/min (50-200); Estimated Glomerular Filt Rate 19 ml/min (>60); GFR (African American) 23 ML/MIN (>60); Glucose 192 mg/dl (74-100); Sodium 134 mmol/L (136-145)
[2022-07-09 05:46] LABS: PTT Heparin (inpatient only) 28.4 Seconds (23.6-34.0)
[2022-07-09 05:47] LABS: Lactic Acid Follow up (RFLX 2) 2.1 mmol/L (0.7-2.1)
[2022-07-09 05:49] LABS: Potassium 2.6 mmoL/L (3.5-5.1)
[2022-07-09 05:57] LABS: Basophils # 0.1 K/mm3 (0-0.2); Basophils % 0.3 % (0.1-2.0); Eosinophils % 0.1 % (0.1-12.0); Hematocrit 28.5 % (37.0-47.0); Lymphocytes # 1.4 K/mm3 (0.7-4.5); Lymphocytes % 7.9 % (10-50); Mean Corpuscular HGB Conc 32.4 g/dL (31.8-35.4); Mean Corpuscular Hemoglobin 31.7 pg (27.0-31.2); Mean Corpuscular Volume 97.8 fl (81-99); Mean Platelet Volume 8.3 fl (7.4-10.4); Monocytes # 1.1 K/mm3 (0.1-1.0); Monocytes % 6.2 % (1.7-9.3); Neutrophils # 15.5 K/mm3 (1.8-7.8); Neutrophils % 85.5 % (37.0-80.0); Platelet Count 317 K/mm3 (142-424); Red Blood Count 2.91 M/mm3 (4.20-5.40); Red Cell Distribution Width 13.9 % (11.5-17.5); White Blood Count 18.2 K/mm3 (4.8-10.8)
--- NOTE | 2022-07-09 05:57 | PC.NURSE ---
Critical Labs reported at this time. No new orders given. [facility] to dose heparin gtt. CV lab at bedside for echo at this time.
[2022-07-09 05:59] LABS: MANUAL DIFFERENTIAL MANUAL DIFFERENTIAL (MANUAL DIFF)
[2022-07-09 06:02] LABS: Hemoglobin 9.3 g/dL (12.2-16.2)
[2022-07-09 06:47] LABS: POC Glucose,Bedside 269 (70-110)
--- NOTE | 2022-07-09 07:00 | PC.NURSE ---
Pt has remained stable since 0500. Pt has been suctioned multiple time via ET Tube d/t thick copious amounts of secretions. LS diminshed t/o with faint crackles noted to bases. Remains NSR on telemetry. VSS. Daughter remains at bedside. F/c remains patent, draining clear, yellow urine. Small liquid bm noted this shift. Edema remains unchanged to BLE. Pharmacy to dose heparin gtt. Propofol remains infusing at 20mcg. NS infusing at 75ml/hr. Will continue to monitor.
[2022-07-09 07:06] LABS: Lymphocytes % 3 % (10-50); Monocytes % 14 % (2-9); Neutrophils % 83 % (42-76); Total Cells Counted 100
[2022-07-09 07:07] LABS: Anisocytosis 1+; Macrocytosis 1+; Platelet Estimate Normal
[2022-07-09 07:17] LABS: ABG Base Excess -0.2 mmol/L (-2.4-2.3); ABG HCO3 23.3 mmhg (22.0-26.0); ABG Oxygen Saturation 97 % (90-100); ABG PCO2 32.2 mmhg (35.0-45.0); ABG PH 7.48 mmol/L (7.35-7.45); ABG TCO2 24.3 mmhg (23-27)
[2022-07-09 07:18] LABS: Oxygen 40% %; Tidal Volume 420
[2022-07-09 07:19] LABS: Allen's Test Patient Unable; PEEP 5; Source Right Radial; Vent Rate 16
--- NOTE | 2022-07-09 07:58 | EXP.CARD.CON ---
History of Present Illness History of Present Illness Consult date: 07/09/22 Requesting physician: Praneeth Sanderson Consult reason: shortness of breath Chief complaint: Resp Failure with intubation/mech ventilation, elevated troponin and BNP Additional Medical History:: 1. Coronary artery disease A. History of coronary bypass grafting in 2010. B. Abnormal stress test, May/2016, with anterior ischemia. C. Cardiac catheterization, 05/2016, left main normal, LAD occluded at mid vessel, circumflex and RCA proximally occluded.? Patent DREW to LAD, SVG to circumflex onto 2 separate OM arteries, SVG to posterior descending artery widely patent.? Renal arteries normal. D.? NSTEMI, 05/2017, KIMMY to PDA and angioplasty to PLVB via SVG. E.??LHC, 05/2019, left main, LAD, circumflex and RCA occluded proximally. EF 45%. LVEDP 10 mmHg. DREW to LAD widely patent, SVG to circumflex widely patent and skips from the first of the second OM. Both limbs are patent. SVG to RCA is patent. Right renal artery has dual artery supply of both arteries are normal. Left renal arteries singular and normal. 2. Chronic kidney disease, stage IV, followed by Dr. Ace A. Chronic anemia with hemoglobin around 9.5 B. Cr around 2.5, GFR 19 during hospitalization, 07/2022 3. Hypertension A.? Echo, 05/2019, Biatrial enlargement, normal LV size, mild concentric LVH, EF 50% with abnormal septal motion. Grade 2 diastolic dysfunction. 2.? Mildly enlarged right ventricle with normal contractility. 3.? Thickened and calcified aortic valve without aortic stenosis aortic insufficiency. 4.? Moderate mitral and mild tricuspid regurgitation, calculated right ventricular systolic pressure is 48 mmHg consistent with moderate pulmonary hypertension. 5.? No significant pericardial effusion noted. B. Echo, 03/2021, 1.? Technically difficult study because of the patient factors and poor acoustic windows, left atrium is mildly enlarged, dilated left ventricle with severe reduced left ventricular systolic function, visually estimated ejection fraction 20% with segmental wall motion abnormality described above, there is no left ventricular thrombus seen.? Grade 1 diastolic dysfunction seen, Doppler evidence of raise left ventricular end-diastolic pressure. 2.? Mild mitral and tricuspid regurgitation, calculated right ventricular systolic pressure is 43 mmHg. 3.? No significant pericardial effusion noted. 4. Hyperlipidemia, on statin therapy 5. Diabetes mellitus, treated for about 25 years 6.? Left bundle branch block, since 2018 7.? PAD A.? Right LE runoff, 11/2019, Results: Large widely patent right anterior tibialis artery which supplies the proximal portion of the right foot but does not have vascularity in the distal portion of the foot providing the digits.? This is all consistent with small vessel disease not amenable to surgical or percutaneous revascularization PLAN 1. Proceed with toe amputation if clinically warranted 2. Consider TMA based on poor digit vascularity however this requires clinical expertise from treating surgeon 3. Risk factor modification 4. Recommend Xarelto 2.5 twice daily combined with aspirin 81 mg daily B.? s/p right toe partial amputation, 11/2019 8. Cardiomyopathy, chronic with worsening EF, 03/2021. No cardiac follow-up since then. 9. Respiratory distress with intubation mechanical ventilation, 07/2022 A.Multifocal pneumonia with elevated BNP and troponins History of present illness: 71-year-old white female with multiple medical problems as noted above presented to the emergency department via EMS due to increasing shortness of breath and congestion for the past 3 days to the point to the patient states she could not breathe and had to call 911. She arrived on DuoNeb mask with O2 sats of 79%. Patient reportedly has had some diarrhea and feeling bad recently. Chest x-ray revealed evidence of multilobar pneumonia wit
--- NOTE | 2022-07-09 08:00 | XR_ITS ---
FINAL REPORT CLINICAL HISTORY: intubated FINDINGS: CHEST 1 VIEW FRONTAL An ET tube is present with the tip 6.5 cm superior to the adonay. Multiple sternotomy wires are present. The heart is normal in size. The mediastinum is unremarkable. There is patchy airspace opacity in the right mid lung and at both bases, right greater than left. There is no pneumothorax. IMPRESSION: Findings are consistent with acute pneumonia. Recommend follow-up. Reviewed, Interpreted and Dictated by Sterling Olvera MD Transcribed by Nettie Black Authenticated and [facility]
--- NOTE | 2022-07-09 09:20 | HMH.PHAINT1 ---
Pharmacy Intervention Comments: Medication reconciliation completed for patient using external pharmacy fill records and medication list from physician's office. -Monica DavisD Candidate 2022
--- NOTE | 2022-07-09 09:43 | EXP.PULM.CON ---
History of Present Illness History of present illness: Patient intubated and sedated but much of the history is obtained from chart review. Ms. Marie is a 71-year-old female history of CAD, CHF presented worsening respiratory distress eventually intubation mechanical ventilator support and pulmonary was called for further management. [facility] Medical History (Updated 07/09/22 @ 12:17 by Frank Gibson MD) Anemia, chronic renal failure Cardiomyopathy CHF (congestive heart failure) Coronary artery disease Edema Hyperlipidemia Hypertension On mechanically assisted ventilation Recent myocardial infarction Stage 4 chronic kidney disease Family History (Updated 07/09/22 @ 02:22 by Reny Negron, RN) Other No significant family history Social History (Updated 07/09/22 @ 02:22 by Reny Negron, RN) Smoking Status: Never smoker second hand exposure: No alcohol intake: never counseling provided: none substance use type: denies use current occupational status: retired and disabled Travel in the last 8 weeks: None household members: family housing: house current occupational exposures/hazards: No caffeine: No Review of Systems Review of Systems Review of systems:: unable to obtain Review of systems (narrative): Intubated and sedated Pulmonology Exam Inpatient Vital signs and Labs for Last 24 Hours: Temp Pulse Resp BP Pulse Ox FiO2 100.3 F H 90 16 140/71 100 40 07/09/22 07:56 07/09/22 06:55 07/09/22 09:37 07/09/22 06:55 07/09/22 09:37 07/09/22 09:37 Laboratory Results - last 24 hr 07/08/22 19:13: ABG pH 7.05 L*, ABG pCO2 76.2 H, ABG pO2 61.3 L, ABG HCO3 20.7 L, ABG Total CO2 23.0, ABG O2 Saturation 80 L*, ABG Base Excess -9.7 L, Federico Test Y 07/08/22 19:40: WBC 26.0 H*, RBC 3.57 L, Hgb 11.2 L, Hct 36.4 L, MCV 101.8 H, MCH 31.4 H, MCHC 30.9 L, RDW 13.4, Plt Count 475 H, MPV 8.7, Neut % (Auto) 72.3, Lymph % (Auto) 19.4, [place] % (Auto) 7.3, Eos % (Auto) 0.0 L, Baso % (Auto) 0.9, Neut # (Auto) 18.8 H, Lymph # (Auto) 5.0 H, [place]acer # (Auto) 1.9 H, Eos # (Auto) 0.0, Baso # (Auto) 0.3 H, Total Counted 100, Neutrophils % (Manual) 71, Lymphocytes % (Manual) 24, Monocytes % (Manual) 5, Platelet Estimate Normal, Tear Drop Cells 1+ 07/08/22 19:40: Sodium 130 L, Potassium 3.5, Chloride 90 L, Carbon Dioxide 24, Anion Gap 19.5 H, BUN 47 H, Creatinine 2.90 H, Estimated Creat Clear 22, Estimated GFR 16 L*, Est GFR ( Amer) 19 L*, Glucose 566 H*, Calcium 9.0, Total Bilirubin 0.8, AST 36, ALT 28, Alkaline Phosphatase 182 H, Troponin I 1.04 H, Total Protein 6.8, Albumin 3.6, Globulin 3.2, Albumin/Globulin Ratio 1.1, Procalcitonin 0.813 07/08/22 19:40: NT-Pro-B Natriuret Pep 70006 H 07/08/22 19:50: Urine Color Yellow, Urine Appearance Sl cloudy, Urine pH 5.5, Ur Specific [place] 1.025, Urine Protein 3+, Urine Glucose (UA) 3+, Urine Ketones Negative, Urine Blood 2+, Urine Nitrate Negative, Urine Bilirubin Negative, Urine Urobilinogen 0.2, Ur Leukocyte Esterase Negative, Urine RBC 10-20, Urine WBC 3-5, Urine Bacteria 4+ 07/08/22 19:50: SARS-CoV-2 (PCR) Not detected, Influenza A Untype (PCR) Not detected, Influenza Type B (PCR) Not detected 07/08/22 20:38: Specimen Source Right radial, O2 % 50, ABG pH 7.34 L, ABG pCO2 40.3, ABG pO2 86.7, ABG HCO3 21.2 L, ABG Total CO2 22.4 L, ABG O2 Saturation 96, ABG Base Excess -4.6 L, Federico Test Non applicable, Vent Rate 18, Tidal Volume 420, PEEP 5 07/08/22 20:40: Lactate 2.7 H 07/08/22 23:38: Troponin I 12.80 H 07/08/22 23:38: Acetone Level None detected 07/09/22 00:04: POC Glucose 400 H* 07/09/22 01:25: Lactate 2.1 07/09/22 03:58: POC Glucose 269 H 07/09/22 04:02: Specimen Source Left radial, O2 % 50, ABG pH 7.50 H, ABG pCO2 28.6 L, ABG pO2 121.7 H, ABG HCO3 21.8 L, ABG Total CO2 22.7 L, ABG O2 Saturation 98, ABG Base Excess -1.4, Federico Test Non applicable, Vent Rate 18, Tidal Volume 420, PEEP 5 07/09/22 05:15: WBC 18.2 H D, RBC 2.91 L, Hgb 9.3 L D, Hct 28.5 L, MCV 97.8
--- NOTE | 2022-07-09 10:20 | XR_ITS ---
FINAL REPORT CLINICAL HISTORY: OG tube placement COMPARISON: 2 hours prior FINDINGS: The heart is mildly enlarged. There are multiple sternotomy wires. Endotracheal tube terminates 5.5 cm superior to the adonay. An OG tube terminates in the stomach. The mediastinum is within normal limits. There are patchy bibasilar airspace infiltrates, right greater than left. There is no pleural effusion. There is no pneumothorax. The bony thorax is intact. IMPRESSION: OG tube terminates in the stomach. Right greater than left basilar airspace infiltrates. Reviewed, Interpreted and Dictated by Sterling Olvera MD Transcribed by Ori Cartwright Authenticated and [facility]
--- NOTE | 2022-07-09 10:32 | DIET.NUTRFU ---
Addendum entered by Emilia Briggs RD, LD 07/09/22 13:45: NG was placed earlier this morning. No feedings started at this time, pulmonary attempting SBT, propofol decreased Original Note: Consult to start TF when feeding tube in place secondary to patient being intubated. Patient is diabetic and insulin in place. Start TF at glucerna at 20ml/hr ATC and increase as tolerated to 70ml/hr goal rate. Providing 1680ml/1680kcal/70gm protein and 1433ml free water. Currently propofol is providing minimal caloric intake,so far today she has received 155ml =170.5kcal. will continue to monitor rate and adjust TF as needed. She is also receiving IVF, so far received 272ml NaCl. Also has edema noted and Lasix provided earlier today. Keep flush to minimum while receiving IVF to avoid fluid overload.
--- NOTE | 2022-07-09 10:56 | PC.NURSE ---
verbal order from Dr Gibson for pt to have 60meq potassium iv. notified Dr Parrish of orders for potassium r/t k+ of 2.6 1051
--- NOTE | 2022-07-09 10:58 | PC.NURSE ---
ng tube placed 954. awaiting xray confirmation of placement before administration of medications.
--- NOTE | 2022-07-09 11:56 | PC.NURSE ---
at start of shift pt sedation was propofol at 20mcg. per Dr Gibson order at 1030, sedation decreased to 10mcg in preparation for SBT
[2022-07-09 11:59] LABS: POC Glucose,Bedside 76 (70-110)
--- NOTE | 2022-07-09 13:22 | EXP.HP ---
History of Present Illness *Admission Date: 07/09/22 *Reason for visit:: Respiratory failure, community-acquired pneumonia *History of present illness: 71-year-old white female with multiple medical problems including congestive heart failure, diabetes, diabetic neuropathy, recent fall with leg fracture, morbid obesity, who presented to the emergency department late last night with worsening respiratory symptoms of congestion, fever and cough over the past week. She felt like she could not breathe well last night and instructed her family to take her to the hospital. When she came to the hospital she was in respiratory distress, acidotic and tachypneic. Hypoxia was noted. She was placed on BiPAP but after 30 minutes of BiPAP was worsening and was electively intubated. Transferred to intensive care unit. Through the night she had an episode of hypotension, tachycardia and hypoxia on the ventilator. Treated with fluids, repeat labs showed markedly elevated troponin levels. She is stabilized since that time and is evaluated today in the intensive care unit intubated and sedated. Cardiology and pulmonary consultations have been obtained and reviewed. [facility] Medical History (Updated 07/09/22 @ 12:17 by Frank Gibson MD) Anemia, chronic renal failure Cardiomyopathy CHF (congestive heart failure) Coronary artery disease Edema Hyperlipidemia Hypertension On mechanically assisted ventilation Recent myocardial infarction Stage 4 chronic kidney disease Family History (Updated 07/09/22 @ 02:22 by Reny Negron RN) No significant family history Social History (Updated 07/09/22 @ 02:22 by Reny Negron RN) Smoking Status: Never smoker second hand exposure: No alcohol intake: never counseling provided: none substance use type: denies use current occupational status: retired and disabled Travel in the last 8 weeks: None household members: family housing: house current occupational exposures/hazards: No caffeine: No Review of Systems Review of Systems Review of systems:: unable to obtain Meds Home Medications and Allergies Home Medications Medication Instructions Recorded Confirmed Type aspirin 81 mg tablet,delayed 81 mg PO DAILY Heart disease 09/17/17 07/08/22 History release (Adult Low Dose Aspirin) clopidogrel 75 mg tablet 75 mg PO DAILY PLATELET INHIBITOR 09/17/17 07/08/22 History furosemide 40 mg tablet 40 mg PO BID Fluid 09/17/17 07/08/22 History sitagliptin phosphate 50 mg tablet 50 mg PO DAILY Diabetes 09/17/17 07/08/22 History (Januvia) famotidine 20 mg tablet 20 mg PO BID Acid reflux 09/18/17 07/08/22 History pravastatin 80 mg tablet 80 mg PO HS Cholesterol 05/28/18 07/08/22 History citalopram 20 mg tablet 20 mg PO DAILY Depression 90 days 09/16/18 07/08/22 History cholecalciferol (vitamin D3) 25 1,000 unit PO DAILY Supplement 05/12/19 07/09/22 History mcg (1,000 unit) tablet losartan 100 mg tablet 100 mg PO DAILY Hypertension 10/04/19 07/08/22 History omeprazole 20 mg capsule,delayed 20 mg PO BID Acid reflux 01/10/20 07/08/22 History release insulin NPH-regular 70-30 U-100 20 unit SQ BID Diabetes 02/09/20 07/09/22 History insulin 100 unit/mL subcutaneous pen amlodipine 5 mg tablet 2.5 mg PO BID BP 10/23/20 07/08/22 History carvedilol 12.5 mg tablet 6.25 mg PO HS BP 10/23/20 07/08/22 History metolazone 5 mg tablet 5 mg PO DAILY BLOOD PRESSURE 04/11/21 07/08/22 History cyanocobalamin (vitamin B-12) 1,000 mcg IM MONTHLY Supplement 09/19/21 07/09/22 History 1,000 mcg/mL injection solution gabapentin 100 mg capsule 100 mg PO TID nerve pain 09/19/21 07/08/22 History tramadol 50 mg tablet 50 mg PO TID PRN Pain 09/19/21 07/08/22 History acetaminophen 500 mg tablet 1,000 mg PO Q6H PRN Mild Pain 07/09/22 07/09/22 History (Acetaminophen Extra Strength) (Scale Score 1-4) ferrous sulfate 325 mg (65 mg 325 mg PO DAILY supplement 07/09/22 07/09/22 History iron)
[2022-07-09 15:37] LABS: PTT Heparin (inpatient only) 77.8 Seconds (23.6-34.0)
--- NOTE | 2022-07-09 15:47 | EXP.PHA.HEP ---
[facility] Pharmacy Heparin Dosing Demographic Data Admission date:: 07/08/22 Date: 07/09/22 Time: 15:48 Allergies Allergy/AdvReac Type Severity Reaction Status Date / Time fentanyl [FENTANYL] Allergy Unknown Verified 07/09/22 02:23 latex [LATEX] Allergy Unknown Verified 07/09/22 02:23 codeine AdvReac Unknown Verified 07/09/22 02:23 Height: 1.57 m Weight: 88.11 kg Indication Medication therapy:: Heparin Current Indications:: ACS (LOW DOSE PROTOCOL) Current Active Problems (Updated 07/09/22 @ 12:17 by Frank Gibson MD) On mechanically assisted ventilation (Acute) Systolic CHF with reduced left ventricular function, NYHA class 3 (Acute) Cardiomyopathy (Acute) Anemia, chronic renal failure (Acute) Respiratory failure (Acute) CAP (community acquired pneumonia) (Acute) Complete left bundle branch block (LBBB) (Acute) Severe sepsis with acute organ dysfunction (Acute) Enteritis (Acute) Elevated troponin (Acute) CAD (coronary artery disease) (Chronic) PAD (peripheral artery disease) (Acute) Type 2 diabetes mellitus with diabetic neuropathy, with long-term current use of insulin (Chronic) Diabetes mellitus (Chronic) Hyperlipidemia (Chronic) Hypertension (Chronic) Edema (Chronic) Stage 4 chronic kidney disease (Chronic) CVA?: No Bleeding problem?: No Kidney disease?: No IN?: Yes Additional History:: CAP, ELEVATED TROPONINS, CAD, CP, SEPSIS, T2DM, PAD, CHF Desired PTT range:: 50-75 seconds Labs Anticoagulation Lab Results:: 07/08/22 07/09/22 19:40 05:15 Hgb 11.2 L 9.3 L D Hct 36.4 L 28.5 L Plt Count 475 H 317 D Monitoring Dose Monitor 1: Date: 07/09/22 Time: 07:45 PTT Result:: 28.4 SECONDS Infusion Rate:: START HEPARIN DRIP AT 1000 UNITS/HOUR = 20 ML/HOUR AND BOLUS IV HEPARIN 4000 UNITS ONCE. Dose Monitor 2: Date: 07/09/22 Time: 14:45 PTT Result:: 77.8 SECONDS Infusion Rate:: REDUCE HEPARIN DRIP RATE BY 1 UNIT/KG/HOUR TO 900 UNITS/HOUR = 18 ML/HOUR Dose Monitor 3: Date: 07/09/22 Time: 20:00 PTT Result:: 61.6 SECONDS Infusion Rate:: CONTINUE CURRENT RATE OF 900 UNITS/HOUR = 18 ML/HOUR Dose Monitor 4: Date: 07/10/22 Time: 08:00 PTT Result:: 58.6 SECONDS Infusion Rate:: CONTINUE CURRENT RATE OF 900 UNITS/HOUR = 18 ML/HOUR Dose Monitor 5: Date: 07/11/22 Time: 06:00 PTT Result:: 33.0 SECONDS Infusion Rate:: INCREASE HEPARIN DRIP RATE TO 1200 UNITS/HOUR = 24 ML/HOUR AND BOLUS HEPARIN 4000 UNITS IV ONCE. Dose Monitor 6: Date: 07/11/22 Time: 13:00 PTT Result:: 37.7 SECONDS Infusion Rate:: KEEP HEPARIN DRIP AT 1200 UNITS/HOUR = 24 ML/HOUR; PER ARLEN BLAKE, PATIENT'S IV WENT BAD AND HAD DRIP OFF FOR ABOUT 2 HOURS, WILL LET RUN AND OBTAIN A NEW PTT IN ABOUT AN HOUR TO RE-EVALUATE. Dose Monitor 7: Date: 07/11/22 Time: 15:00 PTT Result:: 54.3 seconds Infusion Rate:: CONTINUE CURRENT HEPARIN DRIP RATE OF 1200 UNITS/HOUR = 24 ML/HOUR. Dose Monitor 8: Date: 07/11/22 Time: 21:00 Comment:: HEPARIN DRIP STOPPED AT 16:30 AND CHANGED BACK TO [place] PER MD ORDER. Core Measures Is INR > or = 2 at discharge?: No Most Recent Labs:: Laboratory Results - last 24 hr 07/08/22 19:13: ABG pH 7.05 L*, ABG pCO2 76.2 H, ABG pO2 61.3 L, ABG HCO3 20.7 L, ABG Total CO2 23.0, ABG O2 Saturation 80 L*, ABG Base Excess -9.7 L, Federico Test Y 07/08/22 19:40: WBC 26.0 H*, RBC 3.57 L, Hgb 11.2 L, Hct 36.4 L, MCV 101.8 H, MCH 31.4 H, MCHC 30.9 L, RDW 13.4, Plt Count 475 H, MPV 8.7, Neut % (Auto) 72.3, Lymph % (Auto) 19.4, [place] % (Auto) 7.3, Eos % (Auto) 0.0 L, Baso % (Auto) 0.9, Neut # (Auto) 18.8 H, Lymph # (Auto) 5.0 H, [place] # (Auto) 1.9 H, Eos # (Auto) 0.0, Baso # (Auto) 0.3 H, Total Counted 100, Neutrophils % (Manual) 71, Lymphocytes % (Manual) 24, Monocytes % (Manual) 5, Platelet Estimate Normal, Tear Drop Cells 1+ 07/08/22 19
--- NOTE | 2022-07-09 16:08 | PC.NURSE ---
skin assessment from 1200 shift assessment
[2022-07-09 16:35] LABS: POC Glucose,Bedside 87 (70-110)
[2022-07-09 16:48] LABS: Chloride 101 mmol/L (98-107); Potassium 3.8 mmoL/L (3.5-5.1); Sodium 134 mmol/L (136-145)
[2022-07-09 16:51] LABS: Alanine Aminotransferase 14 U/L (12-78); Albumin Level 2.2 g/dl (3.5-5.0); Alkaline Phosphatase 97 U/L (38-126); Anion Gap 13.8 mEq/L (5-15); Aspartate Amino Transferase 74 U/L (14-36); Bilirubin,Total 0.6 mg/dl (0.2-1.3); Blood Urea Nitrogen 47 mg/dl (7-17); Carbon Dioxide 23 mmol/L (22.0-30.0); Creatinine Clearance Estimated 33 mL/min (50-200); Estimated Glomerular Filt Rate 23 ml/min (>60); GFR (African American) 28 ML/MIN (>60); Globulin 2.2 g/dL (1.3-3.2); Glucose 70 mg/dl (74-100); Total Protein,Serum 4.4 g/dl (6.3-8.2)
[2022-07-09 16:52] LABS: Calcium 8.7 mg/dl (8.4-10.2)
--- NOTE | 2022-07-09 16:53 | PC.NURSE ---
notified Dr Parrish by phone of pt prelim blood cultures at this time. no change in antibiotics at this time r/t possible contamination. will await sensitivity. [id number]
--- NOTE | 2022-07-09 17:01 | PC.NURSE ---
pt propofol was increased to 15mcg at this time r/t pt discomfort with ETT.
--- NOTE | 2022-07-09 17:44 | PC.NURSE ---
Pt has rested well this shift on minimal sedation. towards the evening pt began to cough against the vent more frequently. sedation was increased to 15mcg for pt comfort. pt b[place] has been draining yellow clear urine. lungs remain clear, pt tolerating oral care. bowel sounds are active. pt has nonpitting edema in ble. nad. family has remained at bedside throughout the shift. sedation will again be decreased in the am in preparation for possible SBT.
--- NOTE | 2022-07-09 20:00 | CA_ITS ---
APPROVED REPORT EXAM: Comprehensive 2D, Doppler, and color-flow Echocardiogram Chronic Manager: Janet Barrera CRT Ht: 5 ft 2 in Wt: 175lbs BSA: 1.81 BP: 145/73 mmHg Indications: Non STEMI, Diabetes, Hyperlipidemia, Hypertension/HDD, INTUBATED, EF 20% 04/11/21 ON ECHO 2D Dimensions LVOT 1.78 cm (M/F) 1.5-2.5 LA Volume 27.10 mL LA Volume Index 14.60 mL/m2 (M/F) 16-34 M-Mode Dimensions RVDd 2.50 cm (0.9-2.6) LA Diam 3.96 cm (1.9-4.0) LVDd 5.48 cm (3.5-5.7) Ao Diam 3.21 cm (2.0-3.7) LVDs 4.53 cm (3.5-5.7) IVSd 1.47 cm (0.6-1.1) PWd 0.76 cm (0.6-1.1) EF (Teich) 35.80% FS 17.30% EDV (Teich) 146.20 mL TAPSE 1.57 (<1.7) ESV (Teich) 93.90 mL LV Diastology E Decel Time 150.00 (160-240 msec) E/A Ratio 0.77 MED E' 4.90 (< 7 cm/sec) MED A' 7.60 cm/s E'/MED E' Ratio 19.24 (>14) LAT E' 4.00 (<10 cm/sec) LAT A' 11.80 cm/s E/LAT E' Ratio 23.57 (>14) Aortic Valve LVOT Max 128.00 (70-110 cm/s) LVOT VTI 21.15 cm AoV Peak Rusty. 141.00 (50-130 cm/s) AI PHT 367.00 ms AO Peak GR. 8.00 mmHg AO Mean GR. 4.70 (<5 mmHg) AO VTI 23.64 (18-25 cm) CONNOR (VTI) 2.23 (2.5-4.5 cm2) Mitral Valve MV E Max Rusty. 94.00 (40-130 cm/s) MV A Velocity 123.00 (40-130 cm/s) E/A Ratio 0.77 MV Decel. Time 150.00 (160-240 ms) MV PHT 44.00 ms Pulmonary Valve PV Peak Velocity 135.00 (50-150 cm/s) Tricuspid Valve TR P. Velocity 272.00 cm/s RAP Estimate 10.00 mmHg RVSP 39.70 mmHg Left Ventricle Technically difficult study because of the patient factors and poor acoustic windows. Left atrium is mildly enlarged, left ventricle is mildly dilated, severe reduced left ventricular systolic function, estimated ejection fraction approximately 25%, left ventricle is globally hypokinetic, there is abnormal septal motion. Diastolic parameters are inconclusive. Right Ventricle Right atrium and right ventricle are mildly enlarged with normal contractility. Aortic Valve Aortic valve is minimally thickened and calcified without aortic stenosis, there is trace aortic insufficiency. Mitral Valve Mitral valve has mitral annular calcification, leaflets are minimally thickened, there is mild mitral regurgitation. Tricuspid Valve Tricuspid valve grossly normal, there is mild tricuspid regurgitation, tricuspid regurgitation jet velocity is inadequate for calculation of the right ventricular systolic pressure. Pulmonic Valve Pulmonic valve is poorly visualized. Great Vessels Aortic root is normal size. Inferior vena cava is normal size with normal inspiratory collapse. Pericardium No significant pericardial effusion noted. Conclusion 1. Mild biatrial enlargement, dilated left ventricle, severe reduced left ventricular systolic function, estimated ejection fraction approximately 25%, left ventricle is globally hypokinetic, diastolic parameters are inconclusive. 2. Mildly enlarged right ventricle with normal contractility. 3. Trace aortic, mild mitral and tricuspid regurgitation. 4. No significant pericardial effusion. 5. Inferior vena cava is normal size with normal inspiratory collapse. Electronically signed by : Erik Martinez MD 07/09/2022 20:03:25
[2022-07-09 20:26] LABS: PTT Heparin (inpatient only) 61.6 Seconds (23.6-34.0)
[2022-07-09 21:03] LABS: POC Glucose,Bedside 109 (70-110)
[2022-07-10] VITALS (29 sets, daily range): BP systolic 109–136; BP diastolic 38–72; PULSE 56–88; RESP 14–20; TEMP 37.3–37.8; O2SAT 97–100; BMI 35.9
--- NOTE | 2022-07-10 05:30 | PC.NURSE ---
propofol held for sbt at 0600
[2022-07-10 06:19] LABS: POC Glucose,Bedside 113 (70-110)
--- NOTE | 2022-07-10 08:26 | EXP.ACUTE.PN ---
Subjective *Date: 07/10/22 *Time: 08:26 Interval history: Patient did well overnight. She is on a spontaneous breathing trial. She is alert, responsive, nods her head yes or no to questions. Denies pain. She is able to pull about 300 mL on tidal volumes. Pulmonary consultation reviewed. Labs reviewed. Medical Exam Vital signs and Labs for Last 24 Hours: Vital Signs Temp Pulse Pulse Resp BP Pulse Ox FiO2 07/10/22 08:01 99.2 F 07/10/22 08:00 76 16 127/56 L 100 07/10/22 06:58 77 18 136/62 100 35 07/10/22 06:27 14 100 35 07/10/22 06:22 74 07/10/22 06:22 88 07/10/22 06:22 14 100 35 07/10/22 06:00 75 14 133/59 L 100 35 07/10/22 04:00 63 15 127/55 L 100 35 07/10/22 03:00 66 16 135/61 100 35 07/10/22 05:00 69 17 129/72 100 35 07/10/22 04:00 100 07/10/22 02:00 61 17 125/56 L 100 35 07/10/22 04:00 62 07/10/22 04:13 17 100 35 07/10/22 04:00 100.1 F H 07/10/22 02:05 16 100 35 07/10/22 00:00 57 L 07/09/22 20:00 74 07/10/22 01:00 60 16 121/55 L 100 35 07/10/22 00:00 99.1 F 07/10/22 00:05 59 L 07/10/22 00:05 56 L 07/10/22 00:05 14 100 35 07/10/22 00:00 100 07/09/22 20:00 100 07/10/22 00:00 56 L 14 120/56 L 100 35 07/09/22 23:00 55 L 14 116/52 L 100 35 07/09/22 22:00 60 14 118/55 L 100 35 07/09/22 21:00 75 15 135/63 100 35 07/09/22 20:00 76 14 131/62 100 35 07/09/22 22:13 15 100 35 07/09/22 20:24 16 100 35 07/09/22 20:00 99.2 F 07/09/22 19:00 82 16 117/53 L 100 07/09/22 18:00 63 16 118/54 L 100 07/09/22 16:00 70 07/09/22 18:30 60 07/09/22 18:30 60 07/09/22 18:30 14 100 35 07/09/22 17:00 99.0 F 64 16 121/54 L 100 07/09/22 16:47 66 100 07/09/22 16:00 61 18 120/58 L 100 07/09/22 12:00 90 07/09/22 15:00 66 120/58 L 100 07/09/22 14:58 35 07/09/22 14:00 85 16 154/74 H 100 07/09/22 13:41 100 35 07/09/22 13:00 99.0 F 92 H 18 152/82 H 100 07/09/22 12:00 88 18 147/78 H 100 07/09/22 12:00 91 H 100 07/09/22 10:00 35 07/09/22 11:00 91 H 16 156/76 H 100 07/09/22 10:00 80 16 126/60 100 07/09/22 09:00 86 16 130/63 97 07/09/22 09:37 16 100 40 Intake and Output 07/09/22 07/10/22 07/10/22 19:59 03:59 11:59 Intake Total 1202 / 2549 1347 / 2549 Output Total 435 / 1165 250 / 1165 480 / 1165 Balance 767 / 1384 -250 / 1384 867 / 1384 Intake: Intake, Oral Amount 0 / 0 Intake, Tube Irrigant Amount 200 / 200 Intake, Total IV Amount 1002 / 2349 1347 / 2349 0.9 % Sodium Chloride 1,000 ml 546 / 1578 1032 / 1578 @ 100 mls/hr IV .Q10H [facility] Rx#: [id number] Heparin Sodium,Porcine/D5w 500 139 / 139 ml @ 1,000 UNITS/HR 20 mls/hr IV .Q25H [facility] Rx#:[id number] Heparin Sodium,Porcine/D5w 500 235 / 235 ml @ 900 UNITS/HR 18 mls/hr IV .Q25H [facility] Rx#:[id number] KCl 20mEq/100ml 100 ml @ 50 mls 279 / 279 /hr IV Q2H [facility] Rx#:[id number] propofoL 100 ml @ 20 MCG/KG/MIN 80 / 80 9.525 mls/hr IV .[id number] [facility] Rx#:[id number] propofoL 100 ml @ 5 MCG/KG/MIN 38 / 38 2.381 mls/hr IV .Q25H [facility] Rx#: [id number] Output: Output, Urine Amount 435 / 435 Output, Urine Amount (Catheter) 250 / 730 480 / 730 An 250 / 730 480 / 730 Other: Number of Unmeasured Voids 0 0 Weight 194 lb 3.989 oz Patient Weight 07/10/22 11:59 Weight 194 lb 3.989 oz Laboratory Results - last 24 hr 07/08/22 19:50: Urine Color Yellow, Urine Appearance Sl cloudy, Urine pH 5.5, Ur Specific [place] 1.025, Urine Protein 3+, Urine Glucose (UA) 3+, Urine Ketones Negative, Urine Blood 2+, Urine Nitrate Negative, Urine Bilirubin Ne
[2022-07-10 08:41] LABS: PTT Heparin (inpatient only) 58.6 Seconds (23.6-34.0)
--- NOTE | 2022-07-10 08:59 | EXP.CARD.PN ---
Subjective Subjective Date: 07/10/22 Time: 08:59 Principal diagnosis: Pneumonia, CHF, Cardiomyopathy Interval history: 71-year-old white female in bed in no acute distress. Currently on IV spontaneous breathing trial prior to extubation. Echocardiogram this admission confirms severe reduced ejection fraction of 25% with global hypokinesis. Patient has been on goal-directed medical therapy leading up to this hospitalization and is a candidate for [employer]-D therapy. In light of the patient's ongoing leukocytosis and antibiotic usage, would recommend monitoring her over the weekend with plans to insert device early next week. This was discussed with the patient and the daughter and both agreed to proceed in this fashion. Exam Data for Last 24 hours Vital signs and Labs for Last 24 Hours: Temp Pulse Resp BP Pulse Ox FiO2 99.2 F 76 16 127/56 L 100 35 07/10/22 08:01 07/10/22 08:00 07/10/22 08:00 07/10/22 08:00 07/10/22 08:00 07/10/22 06:58 Laboratory Results - last 24 hr 07/09/22 11:47: POC Glucose 76 07/09/22 14:45: APTT 77.8 H* 07/09/22 14:45: Sodium 134 L, Potassium 3.8 D, Chloride 101, Carbon Dioxide 23, Anion Gap 13.8, BUN 47 H, Creatinine 2.10 H, Estimated Creat Clear 33, Estimated GFR 23 L, Est GFR ( Amer) 28 L D, Glucose 70 L D, Calcium 8.7, Total Bilirubin 0.6, AST 74 H D, ALT 14 D, Alkaline Phosphatase 97, Total Protein 4.4 L D, Albumin 2.2 L D, Globulin 2.2, Albumin/Globulin Ratio 1.0 L 07/09/22 16:27: POC Glucose 87 07/09/22 20:06: APTT 61.6 H* 07/09/22 20:42: POC Glucose 109 07/10/22 06:11: POC Glucose 113 H 07/10/22 08:14: APTT 58.6 H* I & O for Last 24 hours: Intake & Output 07/07/22 07/08/22 07/09/22 07/10/22 11:59 11:59 11:59 11:59 Intake Total 1686 / 1686 2549 / 2549 Output Total 1410 / 1410 1165 / 1165 Balance 276 / 276 1384 / 1384 Weight 188 lb 6.865 oz 195 lb Microbiology Reports for the Last 24 Hours: Microbiology 07/08/22 20:40 Blood - Catheterized Blood Culture - Preliminary 07/08/22 20:40 Blood - Catheterized Blood Culture - Preliminary 07/09/22 06:55 Sputum - Endotracheal Tube Aspirate Gram Stain - Final 07/08/22 19:50 Urine,Catheterized Urine Culture - Preliminary Gram Negative Rods Constitutional Constitutional: no acute distress *Routine Respiratory Exam Respiratory: Present decreased breath sounds and rhonchi *Routine Cardiovascular Exam Cardiovascular: Present RRR; Absent murmur, gallop or rubs *Routine Extremities Exam Extremities: Present edema Progress Note: A&P Assessment and plan (1) Respiratory failure: Status: Acute (2) CAP (community acquired pneumonia): Status: Acute (3) Severe sepsis with acute organ dysfunction: Status: Acute (4) On mechanically assisted ventilation: Status: Acute (5) Elevated troponin: Status: Acute (6) Systolic CHF with reduced left ventricular function, NYHA class 3: Status: Acute (7) Cardiomyopathy: Status: Acute Assessment and Plan Assessment and Plan for All Diagnoses:: 1.? Multilobar pneumonia with ARDS requiring intubation and mechanical ventilation, per hospitalist and pulmonology. Currently going through spontaneous breathing trial. 2.? Elevated troponin secondary to strain related to #1 in the setting of cardiomyopathy.? CAD with history of CABG and last cardiac catheterization in 2019 revealed patent coronary artery bypass grafts.??Continue aspirin, carvedilol and irbesartan. No plans for cardiac cath at this time. 3.? CKD, stage IV, stable/improving with Cr 2.1 and GFR 23. 5.? Chronic anemia, stable around 9.5. 6.? Ischemic cardiomyopathy, echo this admission shows EF 25% with global hypokinesis.? On meds as noted above.? Recommend [employer]-D implantation prior to discharge. Would recommend continuing antibiotic therapy through the weekend with plans to implant early next week. 7.? Elevated BNP with component of systolic congest
--- NOTE | 2022-07-10 09:25 | PC.NURSE ---
ptt reported to Luis in pharmacy, he instructed to keep heparin at 900units/hr
[2022-07-10 09:32] LABS: ABG Base Excess -2.7 mmol/L (-2.4-2.3); ABG HCO3 22.1 mmhg (22.0-26.0); ABG Oxygen Saturation 95 % (90-100); ABG PCO2 36.4 mmhg (35.0-45.0); ABG PO2 76.3 mmhg (80-100); ABG TCO2 23.2 mmhg (23-27); Oxygen 30 %
[2022-07-10 09:33] LABS: Allen's Test ACCEPTABLE; PEEP 5; Pressure Support 8; Source R RADIAL
--- NOTE | 2022-07-10 09:57 | EXP.PULM.PN ---
Subjective *Date: 07/10/22 *Time: 11:23 Interval history: No acute respiratory vents overnight. Patient sedation weaned, following commands. Appeared alert. Pulmonology Exam Inpatient Vital signs and Labs for Last 24 Hours: Temp Pulse Resp BP Pulse Ox FiO2 99.2 F 73 14 123/54 L 100 35 07/10/22 08:01 07/10/22 09:00 07/10/22 09:00 07/10/22 09:00 07/10/22 09:00 07/10/22 06:58 Laboratory Results - last 24 hr 07/09/22 11:47: POC Glucose 76 07/09/22 14:45: APTT 77.8 H* 07/09/22 14:45: Sodium 134 L, Potassium 3.8 D, Chloride 101, Carbon Dioxide 23, Anion Gap 13.8, BUN 47 H, Creatinine 2.10 H, Estimated Creat Clear 33, Estimated GFR 23 L, Est GFR ( Amer) 28 L D, Glucose 70 L D, Calcium 8.7, Total Bilirubin 0.6, AST 74 H D, ALT 14 D, Alkaline Phosphatase 97, Total Protein 4.4 L D, Albumin 2.2 L D, Globulin 2.2, Albumin/Globulin Ratio 1.0 L 07/09/22 16:27: POC Glucose 87 07/09/22 20:06: APTT 61.6 H* 07/09/22 20:42: POC Glucose 109 07/10/22 06:11: POC Glucose 113 H 07/10/22 08:14: APTT 58.6 H* 07/10/22 09:29: Specimen Source R radial, O2 % 30, ABG pH 7.40, ABG pCO2 36.4, ABG pO2 76.3 L, ABG HCO3 22.1, ABG Total CO2 23.2, ABG O2 Saturation 95, ABG Base Excess -2.7 L, Federico Test Acceptable, PEEP 5 I & O for Labs for Last 24 Hours: Intake & Output 07/07/22 07/08/22 07/09/22 07/10/22 23:59 23:59 23:59 23:59 Intake Total 420 / 420 2468 / 2468 1465 / 1465 Output Total 400 / 400 1570 / 1620 605 / 605 Balance 898 / 848 860 / 860 Weight 188 lb 7 oz 194 lb 3.989 oz 195 lb Microbiology Reports for the Last 24 Hours: Microbiology 07/08/22 20:40 Blood - Catheterized Blood Culture - Preliminary 07/08/22 20:40 Blood - Catheterized Blood Culture - Preliminary 07/09/22 06:55 Sputum - Endotracheal Tube Aspirate Gram Stain - Final 07/08/22 19:50 Urine,Catheterized Urine Culture - Preliminary Gram Negative Rods Head: Present normocephalic and atraumatic ENT: Present normal exam and normal oropharynx Neck: Present normal inspection Respiratory: Present patient mechanically ventilated, rhonchi, wheezes and diminished air movement Cardiac: Present Irregularly Regular, Tachycardia and radial pulses present; Absent S1/S2 GI: Present soft and distention; Absent tenderness or guarding Rectal (female): Present deferred (female): Present deferred Skin: Present intact; Absent cyanosis or jaundice Neuro: Absent alert, awake or oriented x 3 Comment:: Intubated and sedated Extremities: Present edema; Absent clubbing or cyanosis Assessment and Plan *Assessment and plan (1) Respiratory failure: Status: Acute Category: Medical Code(s): J96.90 - Respiratory failure, unspecified, unspecified whether with hypoxia or hypercapnia (2) CAP (community acquired pneumonia): Status: Acute Category: Medical Code(s): J18.9 - Pneumonia, unspecified organism (3) Severe sepsis with acute organ dysfunction: Status: Acute Category: Medical Code(s): A41.9 - Sepsis, unspecified organism; R65.20 - Severe sepsis without septic shock (4) On mechanically assisted ventilation: Status: Acute Category: Medical Code(s): Z99.11 - Dependence on respirator [ventilator] status Plan #Acute hypoxic respiratory failure: #Right lower lobe pneumonia: History of CHF CAD and lymphedema. On mechanical ventilator support. Admission labs personally reviewed, significant leukocytosis with WBC 20s, improving to 18.2 this morning. Neutrophilic predominant. Significant hypokalemia on admission along with MASSIMO on CKD managed by primary team. Troponinemia with significant delta. BNP significantly elevated at 38,900. Blood gas from admission severe hypercarbic respiratory failure with hypoxic respiratory failure, improved, most recent 1 showed respiratory alkalosis. Chest x-ray pulm asymmetry and prominent right lower lobe and middle lobe ai
[2022-07-10 10:41] LABS: Anion Gap 13.8 mEq/L (5-15); Blood Urea Nitrogen 46 mg/dl (7-17); Calcium 7.7 mg/dl (8.4-10.2); Carbon Dioxide 23 mmol/L (22.0-30.0); Chloride 100 mmol/L (98-107); Creatinine Clearance Estimated 32 mL/min (50-200); Estimated Glomerular Filt Rate 22 ml/min (>60); GFR (African American) 26 ML/MIN (>60); Glucose 106 mg/dl (74-100); Potassium 3.8 mmoL/L (3.5-5.1); Sodium 133 mmol/L (136-145)
[2022-07-10 10:55] LABS: POC Glucose,Bedside 141 (70-110)
--- NOTE | 2022-07-10 11:06 | EXP.PHA.CONS ---
Pharmacy Consult Date: 07/10/22 Time: 11:06 Referring provider: DR. GIBSON Reason for Consult:: VANCOMYCIN DOSING Allergies Allergy/AdvReac Type Severity Reaction Status Date / Time fentanyl [FENTANYL] Allergy Unknown Verified 07/09/22 02:23 latex [LATEX] Allergy Unknown Verified 07/09/22 02:23 codeine AdvReac Unknown Verified 07/09/22 02:23 Home Medications Medication Instructions Recorded Confirmed Type aspirin 81 mg tablet,delayed 81 mg PO DAILY Heart disease 09/17/17 07/08/22 History release (Adult Low Dose Aspirin) clopidogrel 75 mg tablet 75 mg PO DAILY PLATELET INHIBITOR 09/17/17 07/08/22 History furosemide 40 mg tablet 40 mg PO BID Fluid 09/17/17 07/08/22 History sitagliptin phosphate 50 mg tablet 50 mg PO DAILY Diabetes 09/17/17 07/08/22 History (Januvia) famotidine 20 mg tablet 20 mg PO BID Acid reflux 09/18/17 07/08/22 History pravastatin 80 mg tablet 80 mg PO HS Cholesterol 05/28/18 07/08/22 History citalopram 20 mg tablet 20 mg PO DAILY Depression 90 days 09/16/18 07/08/22 History cholecalciferol (vitamin D3) 25 1,000 unit PO DAILY Supplement 05/12/19 07/09/22 History mcg (1,000 unit) tablet losartan 100 mg tablet 100 mg PO DAILY Hypertension 10/04/19 07/08/22 History omeprazole 20 mg capsule,delayed 20 mg PO BID Acid reflux 01/10/20 07/08/22 History release insulin NPH-regular 70-30 U-100 20 unit SQ BID Diabetes 02/09/20 07/09/22 History insulin 100 unit/mL subcutaneous pen amlodipine 5 mg tablet 2.5 mg PO BID BP 10/23/20 07/08/22 History carvedilol 12.5 mg tablet 6.25 mg PO HS BP 10/23/20 07/08/22 History metolazone 5 mg tablet 5 mg PO DAILY BLOOD PRESSURE 04/11/21 07/08/22 History cyanocobalamin (vitamin B-12) 1,000 mcg IM MONTHLY Supplement 09/19/21 07/09/22 History 1,000 mcg/mL injection solution gabapentin 100 mg capsule 100 mg PO TID nerve pain 09/19/21 07/08/22 History tramadol 50 mg tablet 50 mg PO TID PRN Pain 09/19/21 07/08/22 History acetaminophen 500 mg tablet 1,000 mg PO Q6H PRN Mild Pain 07/09/22 07/09/22 History (Acetaminophen Extra Strength) (Scale Score 1-4) ferrous sulfate 325 mg (65 mg 325 mg PO DAILY supplement 07/09/22 07/09/22 History iron) tablet fluticasone propionate 50 2 spray intranasal DAILY PRN 07/09/22 07/09/22 History mcg/actuation nasal Allergies spray,suspension hydrocortisone 2.5 % lotion 1 applic topical TID Skin care 07/09/22 07/09/22 History mupirocin 2 % topical ointment 1 applic topical TID Skin care 07/09/22 07/09/22 History nitroglycerin 0.4 mg sublingual 0.4 mg sublingual Q5M PRN Chest 07/09/22 07/09/22 History tablet Pain New Prescriptions to Start Prescriptions: Height: 1.57 m Weight: 88.451 kg Laboratory Results:: Laboratory Results - last 24 hr 07/09/22 11:47: POC Glucose 76 07/09/22 14:45: APTT 77.8 H* 07/09/22 14:45: Sodium 134 L, Potassium 3.8 D, Chloride 101, Carbon Dioxide 23, Anion Gap 13.8, BUN 47 H, Creatinine 2.10 H, Estimated Creat Clear 33, Estimated GFR 23 L, Est GFR ( Amer) 28 L D, Glucose 70 L D, Calcium 8.7, Total Bilirubin 0.6, AST 74 H D, ALT 14 D, Alkaline Phosphatase 97, Total Protein 4.4 L D, Albumin 2.2 L D, Globulin 2.2, Albumin/Globulin Ratio 1.0 L 07/09/22 16:27: POC Glucose 87 07/09/22 20:06: APTT 61.6 H* 07/09/22 20:42: POC Glucose 109 07/10/22 06:11: POC Glucose 113 H 07/10/22 08:10: Sodium 133 L, Potassium 3.8, Chloride 100, Carbon Dioxide 23, Anion Gap 13.8, BUN 46 H, Creatinine 2.20 H, Estimated Creat Clear 32, Estimated GFR 22 L, Est GFR ( Amer) 26 L, Glucose 106 H D, Calcium 7.7 L 07/10/22 08:14: APTT 58.6 H* 07/10/22 09:29: Specimen Source R radial, O2 % 30, ABG pH 7.40, ABG pCO2 36.4, ABG pO2 76.3 L, ABG HCO3 22.1, ABG Total CO2 23.2, ABG O2 Saturation 95, ABG Base Excess -2.7 L, Federico Test Acceptable, PEEP 5 07/10/22 10:47: POC Glucose 141 H Medical History: Medical History (Updated 07/09/22 @ 12:17 by Frank Gibson MD) Anemia, chronic renal failure Cardiomyopathy
--- NOTE | 2022-07-10 13:29 | DIET.NUTRFU ---
patient was extubated to CPAP today, she is much more alert. Plan for oral diet is to bedside swallow to address any aspiration issues and then start oral diet. IVF in place for hydration: Na 133L and BUN was 46 with Cr 2.2. BS elevated at 141H and A1c back in Aug was 6.1%, cardiac diabetic diet would be appropriate when feasible.
--- NOTE | 2022-07-10 13:49 | PC.NURSE ---
Pt was extubated this morning. She is currently on bipap with O2 sats measuring 100%. Some rhonchi and wheezes noted to lungs. She is alert and oriented x3. She's up to the chair with assist from physical therapy. According to daughter pt was wheelchair bound before admission due to a surgery to [facility]. +2/+3 edema noted to BUE and BLE, R>L. Her bingham is to bedside draining cloudy, straw colored urine. NSR/SB on telemetry. Heparin infusing at 900 units/hr per order. Family is at bedside, call light is within reach.
--- NOTE | 2022-07-10 14:29 | HMH.PTEV ---
Physical Therapy Evaluation Rehab PT IP Evaluation Start: 07/10/22 12:55 Freq: ONCE Status: Active Protocol: Document 07/10/22 14:24 EDGAR (Rec: 07/10/22 14:29 EDGAR [id number]) Subjective/History History History 71-year-old white female with multiple medical problems including congestive heart failure, diabetes, diabetic neuropathy, recent fall with leg fracture, morbid obesity, who presented to the emergency department late last night with worsening respiratory symptoms of congestion, fever and cough over the past week. She felt like she could not breathe well last night and instructed her family to take her to the hospital. When she came to the hospital she was in respiratory distress, acidotic and tachypneic. Hypoxia was noted. She was placed on BiPAP but after 30 minutes of BiPAP was worsening and was electively intubated copied from H&P Subjective Subjective Pt reports feeling better but weak - states she does not like the BiPAP mask - pt also reports she is unable to walk 2nd to LE fx Rehab PT IP Eval Objective Appearance Patient Behavior Cooperative Patient Orientation Place,Name,Situation Difficulty following instructions none Speech Pattern Appropriate Ambulation Patient Able to Ambulate No Ambulation Observation IP General Gait Pattern Observation Antalgic Gait,Shuffling Step Ambulation Distance (feet) 2 Ambulation Ability Maximum x 1 (75% assist) Balance Ability to Arise Unable Sitting Balance Leans or slides in chair Standing Balance Unsteady Dynamic Sitting Balance Ability Fair Dynamic Standing Balance Ability Poor Transfers Bed Transfer Ability Moderate x 2 (50% assist) Chair Transfer Ability Moderate x 2 (50% assist) Sit to Stand Bed Transfer Ability Maximum x 1 (75% assist) Sit to Stand Chair Transfer Ability Maximum x 1 (75% assist) Rehab PT IP prob,goals,plan Problems Date of Evaluation: 07/10/22 PT IP Problems Bed Mobility,Trans
--- NOTE | 2022-07-10 15:21 | SW/DCPLANNER ---
Addendum entered by [facility] 07/18/22 15:07: Patient has been approved for admission to [facility] once patient is medically stable for discharge. Addendum entered by [facility] 07/18/22 09:23: Updated patient information has been faxed to [facility]. Patient will not discharge over weekend per MD. Addendum entered by [facility] 07/16/22 11:32: Patient agrees with SNF level of care at [facility]. Rena Mcknight stated that she can accept this patient pending insurance prior auth. Rena has started the precert for this patient. Addendum entered by [facility] 07/16/22 09:01: The plan is for this patient to be ready for discharge later today. I spoke with patient and her daughter again this AM: daughter is more agreeable. After lengthy discussion patient is agreeable for [facility] to review information while she thinks about discharge plans. Rena Mcknight stated that she does have a female bed available and is willing to review patient information. Patient is ready for discharge today. Original Note: I spoke with this patient and her family regarding plans once medically stable for discharge. Patient's daughter (Louisa) stated that her and her sister reside at home with patient. Louisa is not interested in placement for this patient at time of discharge. Louisa stated they are agreeable to home health services ([facility]). Discharge date is unknown at this time: I will continue to follow up with patient/family/MD.
[2022-07-10 17:22] LABS: POC Glucose,Bedside 157 (70-110)
--- NOTE | 2022-07-10 20:07 | PC.NURSE ---
pt weaned to 4LNC from bipap; performed bedside swallow evaluation with thin liquids and ice chips, pt passed; informed pt will attempt solids like jello or pudding etc in the am
[2022-07-10 20:22] LABS: POC Glucose,Bedside 179 (70-110)
--- NOTE | 2022-07-10 23:00 | PC.NURSE ---
pt weaned to 2LNC, oxygen saturation 100%
[2022-07-11] VITALS (14 sets, daily range): BP systolic 104–158; BP diastolic 40–68; PULSE 58–81; RESP 19–25; TEMP 36.9–37.6; O2SAT 100; BMI 35.6
[2022-07-11 06:09] LABS: Basophils % 0.3 % (0.1-2.0); Eosinophils # 0.1 K/mm3 (0.0-0.4); Eosinophils % 0.6 % (0.1-12.0); Hematocrit 26.1 % (37.0-47.0); Hemoglobin 8.4 g/dL (12.2-16.2); Lymphocytes # 0.9 K/mm3 (0.7-4.5); Lymphocytes % 5.5 % (10-50); Mean Corpuscular HGB Conc 32.1 g/dL (31.8-35.4); Mean Corpuscular Hemoglobin 31.5 pg (27.0-31.2); Mean Platelet Volume 8.4 fl (7.4-10.4); Monocytes # 0.6 K/mm3 (0.1-1.0); Monocytes % 3.7 % (1.7-9.3); Neutrophils # 15.1 K/mm3 (1.8-7.8); Platelet Count 309 K/mm3 (142-424); Red Blood Count 2.66 M/mm3 (4.20-5.40); Red Cell Distribution Width 14.4 % (11.5-17.5); White Blood Count 16.8 K/mm3 (4.8-10.8)
[2022-07-11 06:11] LABS: POC Glucose,Bedside 161 (70-110)
[2022-07-11 06:12] LABS: MANUAL DIFFERENTIAL MANUAL DIFFERENTIAL (MANUAL DIFF)
--- NOTE | 2022-07-11 06:36 | PC.NURSE ---
RT weaned oxygen to 1LNC, oxygen saturation 100%
[2022-07-11 06:44] LABS: Hypochromasia 1+; Lymphocytes % 8 % (10-50); Monocytes % 3 % (2-9); Neutrophils % 89 % (42-76); Total Cells Counted 100
--- NOTE | 2022-07-11 06:44 | PC.NURSE ---
night watch called and instructed this rn to increase heparin drip to 1200units/hr and give 4000unit bolus and will place order to re-draw next aPTT in 6 hours
[2022-07-11 06:45] LABS: Anisocytosis 1+; Platelet Estimate Normal
[2022-07-11 06:47] LABS: Anion Gap 14.7 mEq/L (5-15); Blood Urea Nitrogen 48 mg/dl (7-17); Calcium 7.9 mg/dl (8.4-10.2); Carbon Dioxide 22 mmol/L (22.0-30.0); Chloride 101 mmol/L (98-107); Creatinine Clearance Estimated 30 mL/min (50-200); Estimated Glomerular Filt Rate 21 ml/min (>60); GFR (African American) 25 ML/MIN (>60); Glucose 132 mg/dl (74-100); Potassium 3.7 mmoL/L (3.5-5.1); Sodium 134 mmol/L (136-145)
--- NOTE | 2022-07-11 08:57 | EXP.ACUTE.PN ---
Subjective *Date: 07/11/22 *Time: 08:57 Interval history: Overall patient is doing very nicely. Extubated successfully yesterday. She complains that she has a lot of sputum production. She notes that she has had this for about a week and a half. No fevers. Eating fairly well. Discussed with her and daughter about PTs recommendation for skilled care. She is pleasantly but adamantly opposed to any discussion about this matter. Medical Exam Vital signs and Labs for Last 24 Hours: Vital Signs Temp Pulse Pulse Resp BP Pulse Ox 07/11/22 06:32 58 L 07/11/22 06:32 58 L 07/11/22 06:32 100 07/11/22 06:00 98.4 F 79 21 137/60 100 07/11/22 04:00 79 19 120/51 L 100 07/11/22 04:00 81 07/11/22 00:00 100 07/11/22 02:00 63 21 104/45 L 100 07/11/22 00:00 98.6 F 71 25 H 105/45 L 100 07/11/22 00:00 100 07/11/22 00:00 79 07/10/22 20:00 76 07/10/22 20:00 100 07/10/22 22:00 82 18 109/38 L 100 07/10/22 20:00 76 16 125/56 L 100 07/10/22 22:57 100 07/10/22 22:55 76 07/10/22 22:55 75 07/10/22 16:00 60 07/10/22 18:00 72 133/55 L 100 07/10/22 17:03 70 07/10/22 17:03 70 07/10/22 16:00 66 18 132/58 L 99 07/10/22 12:00 60 07/10/22 14:00 67 20 131/52 L 100 07/10/22 12:00 58 L 20 117/63 100 07/10/22 11:00 71 18 133/64 100 07/10/22 10:00 78 16 129/60 97 07/10/22 11:01 77 07/10/22 11:01 74 07/10/22 10:55 100 07/10/22 09:00 73 14 123/54 L 100 Intake and Output 07/10/22 07/11/22 07/11/22 19:59 03:59 11:59 Intake Total 147 / 147 Output Total 450 / 1050 600 / 1050 Balance -303 / -903 -600 / -903 Intake: Intake, Total IV Amount 147 / 147 Heparin Sodium,Porcine/D5w 500 147 / 147 ml @ 900 UNITS/HR 18 mls/hr IV .Q25H [facility] Rx#:[id number] Output: Output, Urine Amount 300 / 300 Output, Urine Amount (Catheter) 450 / 750 300 / 750 An 450 / 750 300 / 750 Other: Number of Unmeasured Voids 0 Number of Bowel Movements 1 Weight 193 lb 14.4 oz Patient Weight 07/11/22 11:59 Weight 193 lb 14.4 oz Laboratory Results - last 24 hr 07/10/22 08:10: Sodium 133 L, Potassium 3.8, Chloride 100, Carbon Dioxide 23, Anion Gap 13.8, BUN 46 H, Creatinine 2.20 H, Estimated Creat Clear 32, Estimated GFR 22 L, Est GFR ( Amer) 26 L, Glucose 106 H D, Calcium 7.7 L 07/10/22 09:29: Specimen Source R radial, O2 % 30, ABG pH 7.40, ABG pCO2 36.4, ABG pO2 76.3 L, ABG HCO3 22.1, ABG Total CO2 23.2, ABG O2 Saturation 95, ABG Base Excess -2.7 L, Federico Test Acceptable, PEEP 5 07/10/22 10:47: POC Glucose 141 H 07/10/22 17:01: POC Glucose 157 H 07/10/22 20:14: POC Glucose 179 H 07/11/22 06:03: APTT 33.0 07/11/22 06:03: WBC 16.8 H, RBC 2.66 L, Hgb 8.4 L, Hct 26.1 L, MCV 98.0, MCH 31.5 H, MCHC 32.1, RDW 14.4, Plt Count 309, MPV 8.4, Neut % (Auto) 90.0 H, Lymph % (Auto) 5.5 L, [place] % (Auto) 3.7, Eos % (Auto) 0.6, Baso % (Auto) 0.3, Neut # (Auto) 15.1 H, Lymph # (Auto) 0.9, [place] # (Auto) 0.6, Eos # (Auto) 0.1, Baso # (Auto) 0.0, Total Counted 100, Neutrophils % (Manual) 89 H, Lymphocytes % (Manual) 8 L, Monocytes % (Manual) 3, Platelet Estimate Normal, Hypochromasia 1+, Anisocytosis 1+ 07/11/22 06:03: Sodium 134 L, Potassium 3.7, Chloride 101, Carbon Dioxide 22, Anion Gap 14.7, BUN 48 H, Creatinine 2.30 H, Estimated Creat Clear 30, Estimated GFR 21 L, Est GFR ( Amer) 25 L, Glucose 132 H D, Calcium 7.9 L 07/11/22 06:04: POC Glucose 161 H I & O for Labs for Last 24 Hours: Intake & Output 07/08/22 07/09/22 07/10/22 07/11/22 11:59 11:59 11:59 11:59 Intake Total 1686 / 1686 2835 / 2853 147 / 147 Output Total 1410 / 1410 1415 / 1415 1050 / 1050 Balance 276 / 276 1420 / 1438 -903 / -903 Weight 188 lb 6.865 oz 195 lb 193 lb 14.4 oz Microbiology Reports for the Last 24 Hours: Microbiology 07/08
--- NOTE | 2022-07-11 09:45 | EXP.PULM.PN ---
Subjective *Date: 07/11/22 *Time: 12:54 Interval history: No acute respiratory vents overnight. Successful extubated, weaned to room air this morning. Pulmonology Exam Inpatient Vital signs and Labs for Last 24 Hours: Temp Pulse Resp BP Pulse Ox FiO2 99.3 F 58 L 21 137/60 100 35 07/11/22 08:00 07/11/22 06:32 07/11/22 06:00 07/11/22 06:00 07/11/22 06:32 07/10/22 06:58 Laboratory Results - last 24 hr 07/10/22 08:10: Sodium 133 L, Potassium 3.8, Chloride 100, Carbon Dioxide 23, Anion Gap 13.8, BUN 46 H, Creatinine 2.20 H, Estimated Creat Clear 32, Estimated GFR 22 L, Est GFR ( Amer) 26 L, Glucose 106 H D, Calcium 7.7 L 07/10/22 10:47: POC Glucose 141 H 07/10/22 17:01: POC Glucose 157 H 07/10/22 20:14: POC Glucose 179 H 07/11/22 06:03: APTT 33.0 07/11/22 06:03: WBC 16.8 H, RBC 2.66 L, Hgb 8.4 L, Hct 26.1 L, MCV 98.0, MCH 31.5 H, MCHC 32.1, RDW 14.4, Plt Count 309, MPV 8.4, Neut % (Auto) 90.0 H, Lymph % (Auto) 5.5 L, [place] % (Auto) 3.7, Eos % (Auto) 0.6, Baso % (Auto) 0.3, Neut # (Auto) 15.1 H, Lymph # (Auto) 0.9, [place] # (Auto) 0.6, Eos # (Auto) 0.1, Baso # (Auto) 0.0, Total Counted 100, Neutrophils % (Manual) 89 H, Lymphocytes % (Manual) 8 L, Monocytes % (Manual) 3, Platelet Estimate Normal, Hypochromasia 1+, Anisocytosis 1+ 07/11/22 06:03: Sodium 134 L, Potassium 3.7, Chloride 101, Carbon Dioxide 22, Anion Gap 14.7, BUN 48 H, Creatinine 2.30 H, Estimated Creat Clear 30, Estimated GFR 21 L, Est GFR ( Amer) 25 L, Glucose 132 H D, Calcium 7.9 L 07/11/22 06:04: POC Glucose 161 H I & O for Labs for Last 24 Hours: Intake & Output 07/08/22 07/09/22 07/10/22 07/11/22 23:59 23:59 23:59 23:59 Intake Total 420 / 420 2468 / 2468 1780 / 1780 Output Total 400 / 400 1570 / 1620 1305 / 1305 600 / 600 Balance 898 / 848 475 / 475 -600 / -600 Weight 188 lb 7 oz 194 lb 3.989 oz 195 lb 193 lb 14.4 oz Microbiology Reports for the Last 24 Hours: Microbiology 07/08/22 19:50 Urine,Catheterized Urine Culture - Final Klebsiella pneumoniae 07/08/22 20:40 Blood - Catheterized Blood Culture - Preliminary 07/08/22 20:40 Blood - Catheterized Blood Culture - Preliminary Head: Present normocephalic and atraumatic ENT: Present normal exam and normal oropharynx Neck: Present normal inspection Respiratory: Absent respiratory distress, rhonchi or wheezes Cardiac: Present Irregularly Regular, Tachycardia and radial pulses present; Absent S1/S2 GI: Present soft and distention; Absent tenderness or guarding Rectal (female): Present deferred (female): Present deferred Skin: Present intact; Absent cyanosis or jaundice Neuro: Present alert, awake and oriented x 3 Comment:: Intubated and sedated Extremities: Present edema; Absent clubbing or cyanosis Assessment and Plan *Assessment and plan (1) Respiratory failure: Status: Acute Category: Medical Code(s): J96.90 - Respiratory failure, unspecified, unspecified whether with hypoxia or hypercapnia (2) CAP (community acquired pneumonia): Status: Acute Category: Medical Code(s): J18.9 - Pneumonia, unspecified organism (3) Severe sepsis with acute organ dysfunction: Status: Acute Category: Medical Code(s): A41.9 - Sepsis, unspecified organism; R65.20 - Severe sepsis without septic shock (4) On mechanically assisted ventilation: Status: Acute Category: Medical Code(s): Z99.11 - Dependence on respirator [ventilator] status Plan #Acute hypoxic respiratory failure: #Right lower lobe pneumonia: #Bactremia: History of CHF CAD and lymphedema present with worsening respiratory distress and altered mentation needing intubation and mechanical ventilator support. ABG showed hypercarbic respiratory failure. Admission labs personally reviewed, significant leukocytosis with WBC 20s, improving to 18.2 this morning. Neutrophilic predominant. Significant hypokalemia on admissi
--- NOTE | 2022-07-11 10:42 | HMH.SLDYSPHA ---
Speech & Language Evaluation Speech/Language Dysphagia Evaluation Start: 07/11/22 10:29 Freq: ONCE Status: Active Protocol: Document 07/11/22 10:29 ELIASKENZIE (Rec: 07/11/22 10:42 ELIASKENZIE [id number]) Dysphagia Assess/Goals/Plan Assessment Date of Evaluation: 07/11/22 Evaluation Type Initial Certification Assessment/Problems Clinical bedside swallow evaluation completed per MD order post extubation. Does Patient Qualify for Service Yes Qualify/Failure Comment Pt would qualify for skilled speech therapy services 1x to f/u with diet tolerance following CSE results. Recommendations PHYSICIAN CERTIFICATION: The specified therapy services are required, authorized, and reviewed every 30 days. Pt will be seen # times/week 1 for # weeks 1 Diet Recommendations Mechanical Soft Liquid Type Recommendations Normal/Thin SL Swallow Guidelines Assist w/all meals,Chk mough for pocketing,Oral care pre/ post meals Crush Meds Crush all meds Dysphagia Swallow Precautions/Strategies Sitting Upright (90 deg),Small Bites and Sips,Alternate Liquids/Solids Comment Per altered mental status, pt requires assist throughout all meals with cues to swallow at times. Plan Anticipate reaching STG in # weeks 2 Anticipate reaching LTG in # weeks 4 Pt/Guardian verbally ack understanding Yes of dx/prognosis/goals G -code Required No STG-Other Comment/Non-Specific Pt will demonstrate tolerance of MATERIAL HANDLER 1ST SHIFT recommended diet with 100% accuracy from patient and caregiver report, as well as clinical observations. Mcfp Goals Diet mech soft ground w sauces/ gravys with Liquids Thin Liquids Education Instructions provided results of assessment discussed with pt, daughter, nursing, and case management all of which expressed understanding. Pt/Caregiver able to recall information Able to recall/restate Speech & Language HPI History Present Illness Description of Patient Problem Per ER report: 71-year-old white female with multiple medical problems including
--- NOTE | 2022-07-11 11:29 | DIET.NUTRFU ---
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 Diet was upgraded to MSOFT with ground meat with thin liquids. She required some verbal cues to remind to chew food, she also benefits from sauces and gravies on foods. She is endentulous, softer foods should increase intake. Will continue to monitor meal intake to determine if supplements are needed.
[2022-07-11 12:19] LABS: POC Glucose,Bedside 136 (70-110)
--- NOTE | 2022-07-11 12:26 | EXP.CARD.PN ---
Subjective Subjective Date: 07/11/22 Time: 12:27 Principal diagnosis: Pneumonia, CHF, Cardiomyopathy Interval history: 71-year-old white female sitting in bedside chair getting ready to eat lunch in no acute distress. Patient was extubated successfully yesterday. Discussed recommendation for implantation of SHIFT SUPERINTENDENT CAUSTIC CRESYLATE-D device (biventricular defibrillator) with patient and 3 daughters. All questions answered. Patient is willing to proceed with the implantation on Thursday if no contraindication occurs over the weekend. Exam Data for Last 24 hours Vital signs and Labs for Last 24 Hours: Temp Pulse Resp BP Pulse Ox FiO2 99.3 F 58 L 21 137/60 100 35 07/11/22 08:00 07/11/22 06:32 07/11/22 06:00 07/11/22 06:00 07/11/22 06:32 07/10/22 06:58 Laboratory Results - last 24 hr 07/10/22 17:01: POC Glucose 157 H 07/10/22 20:14: POC Glucose 179 H 07/11/22 06:03: APTT 33.0 07/11/22 06:03: WBC 16.8 H, RBC 2.66 L, Hgb 8.4 L, Hct 26.1 L, MCV 98.0, MCH 31.5 H, MCHC 32.1, RDW 14.4, Plt Count 309, MPV 8.4, Neut % (Auto) 90.0 H, Lymph % (Auto) 5.5 L, [place] % (Auto) 3.7, Eos % (Auto) 0.6, Baso % (Auto) 0.3, Neut # (Auto) 15.1 H, Lymph # (Auto) 0.9, [place] # (Auto) 0.6, Eos # (Auto) 0.1, Baso # (Auto) 0.0, Total Counted 100, Neutrophils % (Manual) 89 H, Lymphocytes % (Manual) 8 L, Monocytes % (Manual) 3, Platelet Estimate Normal, Hypochromasia 1+, Anisocytosis 1+ 07/11/22 06:03: Sodium 134 L, Potassium 3.7, Chloride 101, Carbon Dioxide 22, Anion Gap 14.7, BUN 48 H, Creatinine 2.30 H, Estimated Creat Clear 30, Estimated GFR 21 L, Est GFR ( Amer) 25 L, Glucose 132 H D, Calcium 7.9 L 07/11/22 06:04: POC Glucose 161 H 07/11/22 11:58: POC Glucose 136 H I & O for Last 24 hours: Intake & Output 07/09/22 07/10/22 07/11/22 07/12/22 11:59 11:59 11:59 11:59 Intake Total 1686 / 1686 2835 / 2853 147 / 147 Output Total 1410 / 1410 1415 / 1415 1050 / 1050 Balance 276 / 276 1420 / 1438 -903 / -903 Weight 188 lb 6.865 oz 195 lb 193 lb 14.4 oz Microbiology Reports for the Last 24 Hours: Microbiology 07/08/22 19:50 Urine,Catheterized Urine Culture - Final Klebsiella pneumoniae Constitutional Constitutional: no acute distress *Routine Respiratory Exam Respiratory: Present decreased breath sounds and rhonchi *Routine Cardiovascular Exam Cardiovascular: Present RRR and murmur; Absent gallop or rubs *Routine Extremities Exam Extremities: Present edema; Absent cyanosis or clubbing *Routine Neurological Exam Neurological: Present alert, oriented X3 and CN II-XII intact Progress Note: A&P Assessment and plan (1) Respiratory failure: Status: Acute (2) CAP (community acquired pneumonia): Status: Acute (3) Severe sepsis with acute organ dysfunction: Status: Acute (4) Elevated troponin: Status: Acute (5) Systolic CHF with reduced left ventricular function, NYHA class 3: Status: Acute (6) Cardiomyopathy: Status: Acute Assessment and Plan Assessment and Plan for All Diagnoses:: 1.? Multilobar pneumonia with ARDS requiring intubation and mechanical ventilation now extubated, per hospitalist and pulmonology. She continues on cefepime and vancomycin. 2.? Elevated troponin secondary to strain related to #1 in the setting of cardiomyopathy.? CAD with history of CABG and last cardiac catheterization in 2019 revealed patent coronary artery bypass grafts.??Continue aspirin, carvedilol and irbesartan. No plans for cardiac cath at this time. 3.? CKD, stage IV, stable/improving with Cr 2.3 with GFR of 21 5.? Chronic anemia, decreased down to 8.4 this AM. Recommend transfusing if needed to keep hemoglobin above 8 in light of her cardiomyopathy and CAD. 6.? Ischemic cardiomyopathy with prior CABG, echo this admission shows EF 25% with global hypokinesis.? On meds as noted above.? Recommend SHIFT SUPERINTENDENT CAUSTIC CRESYLATE-D implantation prior to discharge. Would recommend continuing antibiotic therapy through the weekend wi
[2022-07-11 13:44] LABS: PTT Heparin (inpatient only) 33.7 Seconds (23.6-34.0)
--- NOTE | 2022-07-11 14:33 | PC.NURSE ---
Addendum entered by Eleanor Andujar RN 07/11/22 15:18: 1434 ok to reorder pt home omeprazole 20mg po bid Original Note: Contacted Dr Parrish at this time per family request. pt would like her home omeprazole reordered as it helps with her jaw ache. awaiting call back from
[2022-07-11 15:36] LABS: PTT Heparin (inpatient only) 54.3 Seconds (23.6-34.0)
[2022-07-11 17:30] LABS: POC Glucose,Bedside 249 (70-110)
[2022-07-11 20:48] LABS: POC Glucose,Bedside 215 (70-110)
[2022-07-12] VITALS (10 sets, daily range): BP systolic 104–143; BP diastolic 40–60; PULSE 50–90; RESP 16–20; TEMP 36.8–37.4; O2SAT 97–100; BMI 37.3
[2022-07-12 05:52] LABS: POC Glucose,Bedside 177 (70-110)
--- NOTE | 2022-07-12 06:14 | PC.NURSE ---
No acute changes this shift. Pt sat up in chair for portion of night. VS have remained stable. Has remained on RA. No complaints stated. FSBS 215 and 177. Family has remained at bedside this shift. No other concerns. Call light within reach.
[2022-07-12 08:09] LABS: Basophils # 0.1 K/mm3 (0-0.2); Basophils % 0.6 % (0.1-2.0); Eosinophils % 0.1 % (0.1-12.0); Hematocrit 27.5 % (37.0-47.0); Hemoglobin 8.8 g/dL (12.2-16.2); Lymphocytes # 1.1 K/mm3 (0.7-4.5); Lymphocytes % 6.1 % (10-50); Mean Corpuscular HGB Conc 32.1 g/dL (31.8-35.4); Mean Corpuscular Hemoglobin 31.2 pg (27.0-31.2); Mean Corpuscular Volume 97.2 fl (81-99); Mean Platelet Volume 8.8 fl (7.4-10.4); Monocytes # 0.8 K/mm3 (0.1-1.0); Monocytes % 4.4 % (1.7-9.3); Neutrophils # 15.2 K/mm3 (1.8-7.8); Neutrophils % 88.8 % (37.0-80.0); Platelet Count 374 K/mm3 (142-424); Red Blood Count 2.83 M/mm3 (4.20-5.40); Red Cell Distribution Width 14.3 % (11.5-17.5); White Blood Count 17.1 K/mm3 (4.8-10.8)
[2022-07-12 08:12] LABS: Anion Gap 14.8 mEq/L (5-15); Blood Urea Nitrogen 46 mg/dl (7-17); Calcium 8.4 mg/dl (8.4-10.2); Carbon Dioxide 22 mmol/L (22.0-30.0); Chloride 103 mmol/L (98-107); Creatinine Clearance Estimated 28 mL/min (50-200); Estimated Glomerular Filt Rate 18 ml/min (>60); GFR (African American) 22 ML/MIN (>60); Glucose 158 mg/dl (74-100); Potassium 3.8 mmoL/L (3.5-5.1); Sodium 136 mmol/L (136-145)
[2022-07-12 08:16] LABS: MANUAL DIFFERENTIAL MANUAL DIFFERENTIAL (MANUAL DIFF)
--- NOTE | 2022-07-12 08:57 | EXP.ACUTE.PN ---
Subjective *Date: 07/12/22 *Time: 08:57 Interval history: Patient is awake, pleasant. Oriented x3. On 1 L nasal cannula oxygen. Continues to report that she is coughing but sputum production is less Medical Exam Vital signs and Labs for Last 24 Hours: Vital Signs Temp Pulse Pulse Resp BP Pulse Ox 07/12/22 08:00 100 07/12/22 06:00 80 19 140/54 L 97 07/12/22 04:00 60 07/12/22 00:00 60 07/12/22 04:00 99.3 F 61 20 125/51 L 100 07/12/22 02:00 71 20 123/48 L 100 07/11/22 20:00 80 07/12/22 00:00 98.3 F 65 20 137/40 L 100 07/11/22 22:00 79 21 158/68 H 100 07/11/22 20:00 80 20 149/40 H 100 07/11/22 23:55 78 07/11/22 23:55 75 07/11/22 20:00 98.6 F 07/11/22 16:00 73 100 07/11/22 16:00 100 07/11/22 16:00 60 07/11/22 15:10 76 07/11/22 15:10 71 07/11/22 09:25 59 L 100 07/11/22 12:43 99.6 F 07/11/22 12:00 60 Intake and Output 07/11/22 07/12/22 07/12/22 19:59 03:59 11:59 Intake Total 1266 / 1366 100 / 1366 Output Total 350 / 700 350 / 700 Balance 1266 / 666 -350 / 666 -250 / 666 Intake: Intake, Oral Amount 720 / 720 Intake, Total IV Amount 546 / 646 100 / 646 Cefepime HCl 2 gm In 0.9 % 100 / 100 Sodium Chloride 100 ml @ 200 mls/hr IV ONCE ONE Rx#:[id number] Heparin Sodium,Porcine/D5w 500 546 / 546 ml @ 900 UNITS/HR 18 mls/hr IV .Q25H [facility] Rx#:[id number] Output: Output, Urine Amount 0 / 0 Output, Urine Amount (Catheter) 350 / 700 350 / 700 An 350 / 700 350 / 700 Other: Number of Unmeasured Voids 0 0 0 Weight 202 lb 11.2 oz Patient Weight 07/12/22 11:59 Weight 202 lb 11.2 oz Laboratory Results - last 24 hr 07/11/22 11:58: POC Glucose 136 H 07/11/22 13:20: APTT 33.7 07/11/22 15:08: APTT 54.3 H* 07/11/22 16:50: POC Glucose 249 H 07/11/22 20:41: POC Glucose 215 H 07/12/22 05:39: POC Glucose 177 H 07/12/22 06:47: WBC 17.1 H, RBC 2.83 L, Hgb 8.8 L, Hct 27.5 L, MCV 97.2, MCH 31.2, MCHC 32.1, RDW 14.3, Plt Count 374, MPV 8.8, Neut % (Auto) 88.8 H, Lymph % (Auto) 6.1 L, [place] % (Auto) 4.4, Eos % (Auto) 0.1, Baso % (Auto) 0.6, Neut # (Auto) 15.2 H, Lymph # (Auto) 1.1, [place] # (Auto) 0.8, Eos # (Auto) 0.0, Baso # (Auto) 0.1 07/12/22 06:47: Sodium 136, Potassium 3.8, Chloride 103, Carbon Dioxide 22, Anion Gap 14.8, BUN 46 H, Creatinine 2.60 H, Estimated Creat Clear 28, Estimated GFR 18 L*, Est GFR ( Amer) 22 L, Glucose 158 H, Calcium 8.4 I & O for Labs for Last 24 Hours: Intake & Output 07/09/22 07/10/22 07/11/22 07/12/22 11:59 11:59 11:59 11:59 Intake Total 1686 / 1686 2835 / 2853 147 / 147 1366 / 1366 Output Total 1410 / 1410 1415 / 1415 1050 / 1050 700 / 700 Balance 276 / 276 1420 / 1438 -903 / -903 666 / 666 Weight 188 lb 6.865 oz 195 lb 193 lb 14.4 oz 202 lb 11.2 oz Microbiology Reports for the Last 24 Hours: Microbiology 07/09/22 06:55 Sputum - Endotracheal Tube Aspirate Gram Stain - Final 07/09/22 06:55 Sputum - Endotracheal Tube Aspirate Sputum Culture - Final NO GROWTH AFTER 48 HOURS 07/08/22 19:50 Urine,Catheterized Urine Culture - Final Klebsiella pneumoniae Comment:: Alert, pleasant. In no distress. Vital signs reviewed. Rhonchi in both lung bales. Heart rate regular with murmur as previously noted. Lymphedema in legs as previously noted. Abdomen soft. Neurologic exam nonfocal. Oropharynx clear, neck exam normal Assessment and Plan *Assessment and plan (1) Respiratory failure: Status: Acute Category: Medical Code(s): J96.90 - Respiratory failure, unspecified, unspecified whether with hypoxia or hypercapnia (2) CAP (community acquired pneumonia): Status: Acute Category: Medical Code(s): J18.9 - Pneumonia, unspecified organism (3) Severe sepsis with acute o
[2022-07-12 10:08] LABS: Eosinophils % 1 % (0-3); Lymphocytes % 7 % (10-50); Monocytes % 3 % (2-9); Neutrophils % 89 % (42-76); Total Cells Counted 100
[2022-07-12 10:09] LABS: Anisocytosis 1+; Platelet Estimate Normal
--- NOTE | 2022-07-12 11:35 | EXP.PHA.PN ---
Subjective *Date: 07/12/22 *Time: 11:35 Medical Exam Vital signs and Labs for Last 24 Hours: Vital Signs Temp Pulse Pulse Resp BP Pulse Ox 07/12/22 10:33 88 07/12/22 10:33 90 07/12/22 10:33 100 07/12/22 08:00 98 07/12/22 08:00 100 07/12/22 06:00 80 19 140/54 L 97 07/12/22 04:00 60 07/12/22 00:00 60 07/12/22 04:00 99.3 F 61 20 125/51 L 100 07/12/22 02:00 71 20 123/48 L 100 07/11/22 20:00 80 07/12/22 00:00 98.3 F 65 20 137/40 L 100 07/11/22 22:00 79 21 158/68 H 100 07/11/22 20:00 80 20 149/40 H 100 07/11/22 23:55 78 07/11/22 23:55 75 07/11/22 20:00 98.6 F 07/11/22 16:00 73 100 07/11/22 16:00 100 07/11/22 16:00 60 07/11/22 15:10 76 07/11/22 15:10 71 07/11/22 12:43 99.6 F 07/11/22 12:00 60 Intake and Output 07/11/22 07/12/22 07/12/22 23:59 07:59 15:59 Intake Total 1026 / 1266 100 / 220 120 / 220 Output Total 700 / 700 0 / 700 Balance 1026 / 316 -600 / -480 120 / -480 Intake: Intake, Oral Amount 480 / 720 120 / 120 Intake, Total IV Amount 546 / 546 100 / 100 Cefepime HCl 2 gm In 0.9 % 100 / 100 Sodium Chloride 100 ml @ 200 mls/hr IV ONCE ONE Rx#:[id number] Heparin Sodium,Porcine/D5w 500 546 / 546 ml @ 900 UNITS/HR 18 mls/hr IV .Q25H [facility] Rx#:[id number] Output: Output, Urine Amount 0 / 0 Output, Urine Amount (Catheter) 700 / 700 An 700 / 700 Other: Number of Unmeasured Voids 0 0 0 Weight 91.943 kg Patient Weight 07/12/22 23:59 Weight 91.943 kg Laboratory Results - last 24 hr 07/11/22 11:58: POC Glucose 136 H 07/11/22 13:20: APTT 33.7 07/11/22 15:08: APTT 54.3 H* 07/11/22 16:50: POC Glucose 249 H 07/11/22 20:41: POC Glucose 215 H 07/12/22 05:39: POC Glucose 177 H 07/12/22 06:47: WBC 17.1 H, RBC 2.83 L, Hgb 8.8 L, Hct 27.5 L, MCV 97.2, MCH 31.2, MCHC 32.1, RDW 14.3, Plt Count 374, MPV 8.8, Neut % (Auto) 88.8 H, Lymph % (Auto) 6.1 L, [place] % (Auto) 4.4, Eos % (Auto) 0.1, Baso % (Auto) 0.6, Neut # (Auto) 15.2 H, Lymph # (Auto) 1.1, [place] # (Auto) 0.8, Eos # (Auto) 0.0, Baso # (Auto) 0.1, Total Counted 100, Neutrophils % (Manual) 89 H, Lymphocytes % (Manual) 7 L, Monocytes % (Manual) 3, Eosinophils % (Manual) 1, Platelet Estimate Normal, RBC Morphology Not Reportable, Anisocytosis 1+ 07/12/22 06:47: Sodium 136, Potassium 3.8, Chloride 103, Carbon Dioxide 22, Anion Gap 14.8, BUN 46 H, Creatinine 2.60 H, Estimated Creat Clear 28, Estimated GFR 18 L*, Est GFR ( Amer) 22 L, Glucose 158 H, Calcium 8.4 I & O for Labs for Last 24 Hours: Intake & Output 07/09/22 07/10/22 07/11/22 07/12/22 23:59 23:59 23:59 23:59 Intake Total 2468 / 2468 1780 / 1780 1266 / 1266 220 / 220 Output Total 1570 / 1620 1305 / 1305 600 / 950 700 / 700 Balance 898 / 848 475 / 475 666 / 316 -480 / -480 Weight 88.11 kg 88.451 kg 87.952 kg 91.943 kg Microbiology Reports for the Last 24 Hours: Microbiology 07/10/22 11:05 Blood Blood Culture - Preliminary NO GROWTH AFTER 48 HOURS 07/09/22 06:55 Sputum - Endotracheal Tube Aspirate Gram Stain - Final 07/09/22 06:55 Sputum - Endotracheal Tube Aspirate Sputum Culture - Final NO GROWTH AFTER 48 HOURS 07/08/22 19:50 Urine,Catheterized Urine Culture - Final Klebsiella pneumoniae The patient's infection will respond to the chosen ABx?: Yes Is the patient receiving the right drug, dose, and route?: Yes Could a more targeted ABx be ordered?: No
[2022-07-12 11:41] LABS: POC Glucose,Bedside 239 (70-110)
[2022-07-12 12:01] LABS: Vancomycin,Trough 8.6 ug/mL (5.0-10.0)
--- NOTE | 2022-07-12 12:08 | EXP.PHA.CONS ---
Pharmacy Consult Date: 07/12/22 Time: 12:08 Referring provider: DR. FINLEY Reason for Consult:: VANCOMYCIN TROUGH LEVEL Allergies Allergy/AdvReac Type Severity Reaction Status Date / Time fentanyl [FENTANYL] Allergy Unknown Verified 07/09/22 02:23 latex [LATEX] Allergy Unknown Verified 07/09/22 02:23 codeine AdvReac Unknown Verified 07/09/22 02:23 Home Medications Medication Instructions Recorded Confirmed Type aspirin 81 mg tablet,delayed 81 mg PO DAILY Heart disease 09/17/17 07/08/22 History release (Adult Low Dose Aspirin) clopidogrel 75 mg tablet 75 mg PO DAILY PLATELET INHIBITOR 09/17/17 07/08/22 History furosemide 40 mg tablet 40 mg PO BID Fluid 09/17/17 07/08/22 History sitagliptin phosphate 50 mg tablet 50 mg PO DAILY Diabetes 09/17/17 07/08/22 History (Januvia) famotidine 20 mg tablet 20 mg PO BID Acid reflux 09/18/17 07/08/22 History pravastatin 80 mg tablet 80 mg PO HS Cholesterol 05/28/18 07/08/22 History citalopram 20 mg tablet 20 mg PO DAILY Depression 90 days 09/16/18 07/08/22 History cholecalciferol (vitamin D3) 25 1,000 unit PO DAILY Supplement 05/12/19 07/09/22 History mcg (1,000 unit) tablet losartan 100 mg tablet 100 mg PO DAILY Hypertension 10/04/19 07/08/22 History omeprazole 20 mg capsule,delayed 20 mg PO BID Acid reflux 01/10/20 07/08/22 History release insulin NPH-regular 70-30 U-100 20 unit SQ BID Diabetes 02/09/20 07/09/22 History insulin 100 unit/mL subcutaneous pen amlodipine 5 mg tablet 2.5 mg PO BID BP 10/23/20 07/08/22 History carvedilol 12.5 mg tablet 6.25 mg PO HS BP 10/23/20 07/08/22 History metolazone 5 mg tablet 5 mg PO DAILY BLOOD PRESSURE 04/11/21 07/08/22 History cyanocobalamin (vitamin B-12) 1,000 mcg IM MONTHLY Supplement 09/19/21 07/09/22 History 1,000 mcg/mL injection solution gabapentin 100 mg capsule 100 mg PO TID nerve pain 09/19/21 07/08/22 History tramadol 50 mg tablet 50 mg PO TID PRN Pain 09/19/21 07/08/22 History acetaminophen 500 mg tablet 1,000 mg PO Q6H PRN Mild Pain 07/09/22 07/09/22 History (Acetaminophen Extra Strength) (Scale Score 1-4) ferrous sulfate 325 mg (65 mg 325 mg PO DAILY supplement 07/09/22 07/09/22 History iron) tablet fluticasone propionate 50 2 spray intranasal DAILY PRN 07/09/22 07/09/22 History mcg/actuation nasal Allergies spray,suspension hydrocortisone 2.5 % lotion 1 applic topical TID Skin care 07/09/22 07/09/22 History mupirocin 2 % topical ointment 1 applic topical TID Skin care 07/09/22 07/09/22 History nitroglycerin 0.4 mg sublingual 0.4 mg sublingual Q5M PRN Chest 07/09/22 07/09/22 History tablet Pain New Prescriptions to Start Prescriptions: Height: 1.57 m Weight: 91.943 kg Laboratory Results:: Laboratory Results - last 24 hr 07/11/22 11:58: POC Glucose 136 H 07/11/22 13:20: APTT 33.7 07/11/22 15:08: APTT 54.3 H* 07/11/22 16:50: POC Glucose 249 H 07/11/22 20:41: POC Glucose 215 H 07/12/22 05:39: POC Glucose 177 H 07/12/22 06:47: WBC 17.1 H, RBC 2.83 L, Hgb 8.8 L, Hct 27.5 L, MCV 97.2, MCH 31.2, MCHC 32.1, RDW 14.3, Plt Count 374, MPV 8.8, Neut % (Auto) 88.8 H, Lymph % (Auto) 6.1 L, [place] % (Auto) 4.4, Eos % (Auto) 0.1, Baso % (Auto) 0.6, Neut # (Auto) 15.2 H, Lymph # (Auto) 1.1, [place] # (Auto) 0.8, Eos # (Auto) 0.0, Baso # (Auto) 0.1, Total Counted 100, Neutrophils % (Manual) 89 H, Lymphocytes % (Manual) 7 L, Monocytes % (Manual) 3, Eosinophils % (Manual) 1, Platelet Estimate Normal, RBC Morphology Not Reportable, Anisocytosis 1+ 07/12/22 06:47: Sodium 136, Potassium 3.8, Chloride 103, Carbon Dioxide 22, Anion Gap 14.8, BUN 46 H, Creatinine 2.60 H, Estimated Creat Clear 28, Estimated GFR 18 L*, Est GFR ( Amer) 22 L, Glucose 158 H, Calcium 8.4 07/12/22 10:52: Vancomycin Trough 8.6 07/12/22 11:14: POC Glucose 239 H Medical History: Medical History (Updated 07/09/22 @ 12:17 by Frank Gibson MD) Anemia, chronic renal failure Cardiomyopathy CHF (congestive heart failure) Coronary arter
--- NOTE | 2022-07-12 15:10 | PC.NURSE ---
Patient resting comfortably in bed, remains on RA and tolerating well, denies any cp or soa, nonproductive cough noted, lung sounds diminished t/o, edema noted to ble and bue, alert and oriented x3, NSR/SB per telemetry with BBB, no s/s of distress noted, vss, bed in lowest position with call light in reach, family at bedside.
[2022-07-12 16:33] LABS: POC Glucose,Bedside 158 (70-110)
[2022-07-12 21:36] LABS: POC Glucose,Bedside 235 (70-110)
[2022-07-13] VITALS (9 sets, daily range): BP systolic 138–173; BP diastolic 55–80; PULSE 55–93; RESP 16–25; TEMP 36.5–37.2; O2SAT 95–100; BMI 35.9
--- NOTE | 2022-07-13 05:25 | PC.NURSE ---
Pt has slept most of shift. BP has remained stable. Pt has been bradycardic at times this shift with HR as low as mid 30s briefly. Pt has remained asymptomatic. No complaints stated. Medications administered per oct. Daughter remains at bedside. Call light within reach.
[2022-07-13 06:04] LABS: POC Glucose,Bedside 137 (70-110)
[2022-07-13 08:15] LABS: Basophils # 0.1 K/mm3 (0-0.2); Basophils % 0.8 % (0.1-2.0); Eosinophils % 0.1 % (0.1-12.0); Hematocrit 29.5 % (37.0-47.0); Hemoglobin 9.3 g/dL (12.2-16.2); Lymphocytes # 1.3 K/mm3 (0.7-4.5); Lymphocytes % 7.9 % (10-50); Mean Corpuscular HGB Conc 31.5 g/dL (31.8-35.4); Mean Corpuscular Hemoglobin 31.2 pg (27.0-31.2); Mean Corpuscular Volume 98.8 fl (81-99); Monocytes # 0.9 K/mm3 (0.1-1.0); Monocytes % 5.9 % (1.7-9.3); Neutrophils # 13.6 K/mm3 (1.8-7.8); Neutrophils % 85.4 % (37.0-80.0); Platelet Count 338 K/mm3 (142-424); Red Blood Count 2.98 M/mm3 (4.20-5.40); Red Cell Distribution Width 14.1 % (11.5-17.5)
[2022-07-13 08:17] LABS: MANUAL DIFFERENTIAL MANUAL DIFFERENTIAL (MANUAL DIFF)
[2022-07-13 08:19] LABS: Chloride 103 mmol/L (98-107); Potassium 4.6 mmoL/L (3.5-5.1); Sodium 136 mmol/L (136-145)
[2022-07-13 08:22] LABS: Anion Gap 15.6 mEq/L (5-15); Blood Urea Nitrogen 48 mg/dl (7-17); Calcium 8.7 mg/dl (8.4-10.2); Carbon Dioxide 22 mmol/L (22.0-30.0); Creatinine Clearance Estimated 28 mL/min (50-200); Estimated Glomerular Filt Rate 19 ml/min (>60); GFR (African American) 23 ML/MIN (>60); Glucose 142 mg/dl (74-100)
--- NOTE | 2022-07-13 08:44 | EXP.ACUTE.PN ---
Subjective *Date: 07/13/22 *Time: 08:44 Interval history: Patient feels well. Slept well overnight. Has had some left-sided tooth ache pain and throat pain. She thinks that omeprazole helps with this and it has seemed to help with this in the past. She had no actual chest pain. Nurses report that during deep sleep her heart rate is in the 30s and 40s. Medical Exam Vital signs and Labs for Last 24 Hours: Vital Signs Temp Pulse Pulse Resp BP Pulse Ox 07/13/22 08:00 98.2 F 89 18 139/55 L 100 07/13/22 04:00 98.6 F 86 16 147/72 H 97 07/13/22 04:00 60 07/13/22 00:15 81 07/13/22 00:00 55 L 07/12/22 20:00 60 07/13/22 00:00 98.4 F 68 16 138/62 100 07/13/22 00:00 98.2 F 61 20 138/59 L 100 07/12/22 20:00 98.6 F 64 16 142/60 H 100 07/12/22 16:00 61 07/12/22 16:00 98.6 F 64 18 143/59 H 100 07/12/22 12:00 50 L 07/12/22 12:00 98.4 F 54 L 18 104/56 L 100 07/12/22 10:33 88 07/12/22 10:33 90 07/12/22 10:33 100 Intake and Output 07/12/22 07/13/22 07/13/22 19:59 03:59 11:59 Intake Total 1240 / 1460 220 / 1460 Output Total 400 / 900 500 / 900 Balance 840 / 560 -280 / 560 Intake: Intake, Oral Amount 840 / 960 120 / 960 Intake, Total IV Amount 400 / 500 100 / 500 Cefepime HCl 2 gm In 0.9 % 100 / 200 100 / 200 Sodium Chloride 100 ml @ 200 mls/hr IV Q24H MARCIA Rx#:[id number] Vancomycin/Water For Inj (Peg) 300 / 300 1.5 gm In 300 ml @ 150 mls/hr IV Q48H MARCIA Rx#:[id number] Output: Output, Urine Amount 400 / 400 0 / 400 Output, Urine Amount (Catheter) 500 / 500 An 500 / 500 Other: Number of Unmeasured Voids 0 0 0 Weight 202 lb 11.2 oz 195 lb 8 oz Patient Weight 07/13/22 11:59 Weight 195 lb 8 oz Laboratory Results - last 24 hr 07/12/22 06:47: Total Counted 100, Neutrophils % (Manual) 89 H, Lymphocytes % (Manual) 7 L, Monocytes % (Manual) 3, Eosinophils % (Manual) 1, Platelet Estimate Normal, RBC Morphology Not Reportable, Anisocytosis 1+ 07/12/22 10:52: Vancomycin Trough 8.6 07/12/22 11:14: POC Glucose 239 H 07/12/22 16:21: POC Glucose 158 H 07/12/22 21:21: POC Glucose 235 H 07/13/22 05:49: POC Glucose 137 H 07/13/22 07:07: WBC 16.0 H, RBC 2.98 L, Hgb 9.3 L, Hct 29.5 L, MCV 98.8, MCH 31.2, MCHC 31.5 L, RDW 14.1, Plt Count 338, MPV 9.0, Neut % (Auto) 85.4 H, Lymph % (Auto) 7.9 L, [place] % (Auto) 5.9, Eos % (Auto) 0.1, Baso % (Auto) 0.8, Neut # (Auto) 13.6 H, Lymph # (Auto) 1.3, [place] # (Auto) 0.9, Eos # (Auto) 0.0, Baso # (Auto) 0.1 07/13/22 07:07: Sodium 136, Potassium 4.6 D, Chloride 103, Carbon Dioxide 22, Anion Gap 15.6 H, BUN 48 H, Creatinine 2.50 H, Estimated Creat Clear 28, Estimated GFR 19 L*, Est GFR ( Amer) 23 L, Glucose 142 H, Calcium 8.7 I & O for Labs for Last 24 Hours: Intake & Output 07/10/22 07/11/22 07/12/22 07/13/22 11:59 11:59 11:59 11:59 Intake Total 2835 / 2853 147 / 147 1486 / 1486 1460 / 1460 Output Total 1415 / 1415 1050 / 1050 700 / 700 900 / 900 Balance 1420 / 1438 -903 / -903 786 / 786 560 / 560 Weight 195 lb 193 lb 14.4 oz 202 lb 11.2 oz 195 lb 8 oz Microbiology Reports for the Last 24 Hours: Microbiology 07/08/22 20:40 Blood - Catheterized Blood Culture - Final Staphylococcus epidermidis Enterococcus faecalis Staphylococcus hominis 07/08/22 20:40 Blood - Catheterized Blood Culture - Final Enterococcus faecalis Staphylococcus epidermidis Staph haemolyticus/lugdunensis 07/10/22 13:10 Blood Blood Culture - Preliminary NO GROWTH AFTER 48 HOURS 07/10/22 11:05 Blood Blood Culture - Preliminary NO GROWTH AFTER 48 HOURS 07/09/22 06:55 Sputum - Endotracheal Tube Aspirate Gram Stain
[2022-07-13 09:02] LABS: Anisocytosis 1+; Lymphocytes % 10 % (10-50); Monocytes % 2 % (2-9); Neutrophils % 88 % (42-76); Nucleated Red Blood Cells 1; Platelet Estimate Normal; Total Cells Counted 100
[2022-07-13 11:33] LABS: POC Glucose,Bedside 232 (70-110)
[2022-07-13 16:16] LABS: POC Glucose,Bedside 216 (70-110)
--- NOTE | 2022-07-13 16:18 | PC.NURSE ---
Patient resting comfortably in bed, has been up to chair for several hours this shift, received bath and bed change, remains on RA, alert and oriented, edema noted to bue and ble, denies any cp or soa, no s/s of distress noted, family at bedside, bed in lowest position with call light in reach.
--- NOTE | 2022-07-13 16:49 | PC.NURSE ---
Courtesy round done at this time, patient is sleeping. family at the bedside. Fresh ice water given, told family patient is NPO at midnight. Trash and linens taken out.
[2022-07-13 20:08] LABS: POC Glucose,Bedside 201 (70-110)
[2022-07-14] VITALS (20 sets, daily range): BP systolic 114–185; BP diastolic 46–83; PULSE 50–90; RESP 14–21; TEMP 36.4–36.9; O2SAT 92–100; BMI 36.1
--- NOTE | 2022-07-14 | IR_ITS ---
APPROVED REPORT Patient Location: Inpatient Plasterer Helper: IGNACIO Jeronimo RT (R) PROCEDURES 1. Pocket formation for biventricular pacemaker generator with cardiac resynchronization/defibrillator therapy. 2. Placement of atrial sensing and pacing lead into the right atrial appendage. 3. Placement of a right ventricular sensing, pacing and shocking lead in the right ventricular apex. 4. Placement of left ventricular sensing pacing lead via the coronary sinus. 5. Permanent cardiac resynchronization therapy with ICD implantation/biventricular pacemaker. INDICATION Systolic Congestive Heart Failure, ejection <35%, Wide QRS >120ms, [place] Heart Assoication Class 3 Congestive Heart Failure Informed consent was obtained prior to the procedure. COMPLICATIONS None Estimated Blood Loss: Less than 10 mls TECHNIQUE 1% Lidocaine with epinephrine used to anesthetized the left anterior aspect of the chest. Scalpel was used to make the initial cutaneous incision while electrocautery was used to dissect down tinto the fascia. The fascia was lifted off the pectoralis muscle and digitally manipulated creating a pocket for the defibrillator. The patient was then placed in Trendelenburg position and the subclavian vein was accessed 3 times via the Selinger technique. A 8 Palestinian sheath was placed under fluoroscopic guidance into the subclavian vein. The dilator was removed from the sheath. Using fluoroscopic guidance, the ventricular lead was placed into the right ventricular apex, screwed and secured into place. Electronic interrogation proved acceptable thresholds and voltage within the lead. Using 3-0 silk, the ventricular lead was then secured into place and sheath peeled away. Following this, a 9.5 Palestinian sheath and dilator was then placed over one of the wires while keeping the other wire in place within the subclavian vein. The dilator was removed from the sheath. Using fluoroscopic guidance, contrast was used to visualize the coronary sinus, the left ventricular lead was placed into the coronary sinus. Electronic interrogation proved acceptable thresholds and voltage within the lead. Using 3-0 silk, the left ventricular lead was then secured into place and sheath peeled away.An additional 6 Palestinian fresh sheath and dilator was placed over the existing wire. Using fluoroscopic guidance, the atrial lead was then placed into the right atrial appendage and screwed and secured in place. Electrical interrogation demonstrated acceptable thresholds and voltage number. The atrial lead was then secured into place using 3-0 silk and sheath peeled away. 1 gram of Ancef was used to flush the pocket. All 3 leads were connected to generator and tested via computer. The defibrillator then secured to the fascia. Monocryl was used to close the subcutaneous layers while alethea were used to close the cutaneous layer. A pressure dressing was placed and the patient was transferred to the postop holding area in stable condition for postoperative care. INTERROGATION Generator Model number: VIGILANT X4 HOG KILLER-D IS-1/DF4/IS4 G247 Generator Serial number: [id number] Atrial lead model number: 7840 Atrial lead serial number: [id number] P-wave: 2.5 MV Impedence: 401 ohms Threshold: 1.0v @ 0.4 ms Right Ventricular lead model number: 0675 Right Ventricular lead serial number: [id number] R-wave: 20.0mv Impedence: 541 ohms Threshold: 0.6v@0.4ms Left Ventricular lead model number: 4671 Left Ventricular lead serial number: [id number] R-wave: 8.0 mv Impedence: 538 ohms Threshold: 3.0v @1.0ms Pacing Parameters: Mode: DDDR Base/Max Track:60 ppm / 130 ppm No diaphragmatic stimulation at 10
--- NOTE | 2022-07-14 04:15 | PC.NURSE ---
No acute changes this shift. Pt has rested well. No complaints stated. Pt has been NSR to sinus flaca. HR ranging 50s-80s. Other VSS. Pt has remained on RA. Scattered wheezing noted to lung bales. Breathing Tx administered via RT. F/C draining to bedside with yellow urine. Some sediment noted. No BM. Pt is NPO. Consent for procedure signed and on chart. Daughter at bedside.
[2022-07-14 06:17] LABS: Basophils # 0.1 K/mm3 (0-0.2); Basophils % 0.7 % (0.1-2.0); Blood Urea Nitrogen 44 mg/dl (7-17); Calcium 8.6 mg/dl (8.4-10.2); Carbon Dioxide 22 mmol/L (22.0-30.0); Chloride 107 mmol/L (98-107); Creatinine Clearance Estimated 31 mL/min (50-200); Eosinophils % 0.1 % (0.1-12.0); Estimated Glomerular Filt Rate 21 ml/min (>60); GFR (African American) 25 ML/MIN (>60); Glucose 153 mg/dl (74-100); Hematocrit 27.1 % (37.0-47.0); Hemoglobin 8.6 g/dL (12.2-16.2); Lymphocytes # 1.4 K/mm3 (0.7-4.5); Lymphocytes % 9.3 % (10-50); Mean Corpuscular HGB Conc 31.7 g/dL (31.8-35.4); Mean Corpuscular Hemoglobin 31.1 pg (27.0-31.2); Mean Corpuscular Volume 98.3 fl (81-99); Mean Platelet Volume 8.7 fl (7.4-10.4); Monocytes % 6.5 % (1.7-9.3); Neutrophils # 12.2 K/mm3 (1.8-7.8); Neutrophils % 83.4 % (37.0-80.0); Platelet Count 330 K/mm3 (142-424); Red Blood Count 2.76 M/mm3 (4.20-5.40); Red Cell Distribution Width 14.3 % (11.5-17.5); Sodium 138 mmol/L (136-145); White Blood Count 14.6 K/mm3 (4.8-10.8)
[2022-07-14 06:59] LABS: POC Glucose,Bedside 156 (70-110)
--- NOTE | 2022-07-14 10:05 | EXP.CARD.PN ---
Subjective Subjective Date: 07/14/22 Time: 09:30 Principal diagnosis: Pneumonia, CHF, Cardiomyopathy Interval history: This is a 70-year-old white female who appears to be in no distress. She was admitted to the hospital and initially intubated. She has subsequently been extubated. She is on room air this morning with no complaints of shortness of breath. She denies any chest pain or pressure. She denies any fever, chills, nausea, vomiting, diarrhea. She does state that she has some orthopnea when she tries to lie flat. She complains of just not having any energy and feeling fatigued all the time. She states that she slept well overnight and is anticipating her AICD placement this morning. Exam Data for Last 24 hours Vital signs and Labs for Last 24 Hours: Temp Pulse Resp BP Pulse Ox FiO2 98.4 F 86 19 175/83 H 100 100 07/14/22 08:00 07/14/22 08:00 07/14/22 08:00 07/14/22 08:00 07/14/22 08:00 07/11/22 22:00 Laboratory Results - last 24 hr 07/13/22 11:26: POC Glucose 232 H 07/13/22 16:08: POC Glucose 216 H 07/13/22 20:00: POC Glucose 201 H 07/14/22 05:36: WBC 14.6 H, RBC 2.76 L, Hgb 8.6 L, Hct 27.1 L, MCV 98.3, MCH 31.1, MCHC 31.7 L, RDW 14.3, Plt Count 330, MPV 8.7, Neut % (Auto) 83.4 H, Lymph % (Auto) 9.3 L, [place] % (Auto) 6.5, Eos % (Auto) 0.1, Baso % (Auto) 0.7, Neut # (Auto) 12.2 H, Lymph # (Auto) 1.4, [place] # (Auto) 1.0, Eos # (Auto) 0.0, Baso # (Auto) 0.1 07/14/22 05:36: Sodium 138, Potassium 5.0, Chloride 107, Carbon Dioxide 22, Anion Gap 14.0, BUN 44 H, Creatinine 2.30 H, Estimated Creat Clear 31, Estimated GFR 21 L, Est GFR ( Amer) 25 L, Glucose 153 H, Calcium 8.6 07/14/22 06:47: POC Glucose 156 H I & O for Last 24 hours: Intake & Output 07/11/22 07/12/22 07/13/22 07/14/22 23:59 23:59 23:59 23:59 Intake Total 1266 / 1266 1460 / 1460 580 / 580 Output Total 600 / 950 1100 / 1100 1800 / 1800 450 / 450 Balance 666 / 316 360 / 360 -1220 / -1220 -450 / -450 Weight 193 lb 14.4 oz 202 lb 11.2 oz 195 lb 8 oz 196 lb 6.4 oz Microbiology Reports for the Last 24 Hours: Microbiology 07/08/22 20:40 Blood - Catheterized Blood Culture - Final Staphylococcus epidermidis Enterococcus faecalis Staphylococcus hominis 07/08/22 20:40 Blood - Catheterized Blood Culture - Final Enterococcus faecalis Staphylococcus epidermidis Staph haemolyticus/lugdunensis Narrative: Telemetry strip is sinus rhythm with a rate of 59 this morning Constitutional Constitutional: no acute distress and average body habitus *Routine HEENT Exam Head: Present normocephalic and atraumatic ENT: Present mucous membranes moist *Routine Neck Exam Neck: Present supple, full ROM and normal carotid upstroke; Absent JVD, carotid bruit or lymphadenopathy *Routine Respiratory Exam Respiratory: Present wheezes (Expiratory wheezes noted in the bilateral upper lobes), normal respiratory effort, able to speak in complete sentences and symmetric chest movement *Routine Cardiovascular Exam Cardiovascular: Present RRR, Normal S1 and Normal S2; Absent murmur or gallop *Routine Abdominal Exam Abdominal: Present soft and normoactive bowel sounds; Absent tenderness, distended or organomegaly *Routine Extremities Exam Extremities: Present full ROM, pulses intact and normal capillary refill; Absent cyanosis, clubbing or edema *Routine Skin Exam Skin: Present intact and warm; Absent erythema *Routine Neurological Exam Neurological: Present alert, oriented X3 and CN II-XII intact; Absent sensory deficit or motor deficit Routine Psychiatric Exam Psychiatric: Present normal affect Progress Note: A&P Assessment and plan (1) Systolic CHF with reduced left ventricular function, NYHA class 3: Status: Acute (2) Cardiomyopathy: Status: Acute (3) Respiratory failure: Sta
--- NOTE | 2022-07-14 10:42 | EXP.PULM.PN ---
Subjective *Date: 07/14/22 *Time: 10:42 Interval history: No acute respiratory vents overnight. Patient denies any new complaints. Awake but not alert this morning. Pulmonology Exam Inpatient Vital signs and Labs for Last 24 Hours: Temp Pulse Resp BP Pulse Ox FiO2 98.4 F 86 19 175/83 H 100 100 07/14/22 08:00 07/14/22 08:00 07/14/22 08:00 07/14/22 08:00 07/14/22 08:00 07/11/22 22:00 Laboratory Results - last 24 hr 07/13/22 11:26: POC Glucose 232 H 07/13/22 16:08: POC Glucose 216 H 07/13/22 20:00: POC Glucose 201 H 07/14/22 05:36: WBC 14.6 H, RBC 2.76 L, Hgb 8.6 L, Hct 27.1 L, MCV 98.3, MCH 31.1, MCHC 31.7 L, RDW 14.3, Plt Count 330, MPV 8.7, Neut % (Auto) 83.4 H, Lymph % (Auto) 9.3 L, [place] % (Auto) 6.5, Eos % (Auto) 0.1, Baso % (Auto) 0.7, Neut # (Auto) 12.2 H, Lymph # (Auto) 1.4, [place] # (Auto) 1.0, Eos # (Auto) 0.0, Baso # (Auto) 0.1 07/14/22 05:36: Sodium 138, Potassium 5.0, Chloride 107, Carbon Dioxide 22, Anion Gap 14.0, BUN 44 H, Creatinine 2.30 H, Estimated Creat Clear 31, Estimated GFR 21 L, Est GFR ( Amer) 25 L, Glucose 153 H, Calcium 8.6 07/14/22 06:47: POC Glucose 156 H I & O for Labs for Last 24 Hours: Intake & Output 07/11/22 07/12/22 07/13/22 07/14/22 23:59 23:59 23:59 23:59 Intake Total 1266 / 1266 1460 / 1460 580 / 580 Output Total 600 / 950 1100 / 1100 1800 / 1800 450 / 450 Balance 666 / 316 360 / 360 -1220 / -1220 -450 / -450 Weight 193 lb 14.4 oz 202 lb 11.2 oz 195 lb 8 oz 196 lb 6.4 oz Microbiology Reports for the Last 24 Hours: Microbiology 07/08/22 20:40 Blood - Catheterized Blood Culture - Final Staphylococcus epidermidis Enterococcus faecalis Staphylococcus hominis 07/08/22 20:40 Blood - Catheterized Blood Culture - Final Enterococcus faecalis Staphylococcus epidermidis Staph haemolyticus/lugdunensis Head: Present normocephalic and atraumatic ENT: Present normal exam and normal oropharynx Neck: Present normal inspection Respiratory: Present rhonchi; Absent respiratory distress or wheezes Cardiac: Present Irregularly Regular, Tachycardia and radial pulses present; Absent S1/S2 GI: Present soft and distention; Absent tenderness or guarding Rectal (female): Present deferred (female): Present deferred Skin: Present intact; Absent cyanosis or jaundice Neuro: Present awake; Absent alert or oriented x 3 Comment:: Intubated and sedated Extremities: Present edema; Absent clubbing or cyanosis Assessment and Plan *Assessment and plan (1) Respiratory failure: Status: Acute Category: Medical Code(s): J96.90 - Respiratory failure, unspecified, unspecified whether with hypoxia or hypercapnia (2) CAP (community acquired pneumonia): Status: Acute Category: Medical Code(s): J18.9 - Pneumonia, unspecified organism (3) Severe sepsis with acute organ dysfunction: Status: Acute Category: Medical Code(s): A41.9 - Sepsis, unspecified organism; R65.20 - Severe sepsis without septic shock (4) On mechanically assisted ventilation: Status: Acute Category: Medical Code(s): Z99.11 - Dependence on respirator [ventilator] status Plan #Right lower lobe pneumonia: #Bactremia: History of CHF CAD and lymphedema present with worsening respiratory distress and altered mentation needing intubation and mechanical ventilator support. ABG showed hypercarbic respiratory failure. Admission labs personally reviewed, significant leukocytosis with WBC 20s, improving to 18.2 this morning. Neutrophilic predominant. Significant hypokalemia on admission along with MASSIMO on CKD managed by primary team. Troponinemia with significant delta. BNP significantly elevated at 38,900. Blood gas from admission severe hypercarbic respiratory failure with hypoxic respirator
[2022-07-14 11:03] LABS: ABG Base Excess -4.6 mmol/L (-2.4-2.3); ABG HCO3 19.5 mmhg (22.0-26.0); ABG Oxygen Saturation 98 % (90-100); ABG PCO2 28.7 mmhg (35.0-45.0); ABG PH 7.45 mmol/L (7.35-7.45); ABG PO2 109.4 mmhg (80-100); ABG TCO2 20.3 mmhg (23-27)
[2022-07-14 11:04] LABS: Allen's Test Acceptable; Oxygen 21% %; Source Right Radial
[2022-07-14 12:04] LABS: POC Glucose,Bedside 196 (70-110)
--- NOTE | 2022-07-14 13:37 | PC.NURSE ---
Addendum entered by Joe Mckinney RN 07/14/22 13:37: Pt more drowsy this am, notified Dr. Parrish. No orders. Pt more awake when going to labor law professor. A/O x 4. Original Note: Pt to labor law professor at this time.
--- NOTE | 2022-07-14 13:42 | P.PN_ITS ---
[facility] Medical History Anemia, chronic renal failure Cardiomyopathy CHF (congestive heart failure) Coronary artery disease Edema Hyperlipidemia Hypertension On mechanically assisted ventilation Recent myocardial infarction Stage 4 chronic kidney disease Family History Other No significant family history Social History Smoking Status: Never smoker second hand exposure: No alcohol intake: never counseling provided: none substance use type: denies use current occupational status: retired and disabled Travel in the last 8 weeks: None household members: family housing: house current occupational exposures/hazards: No caffeine: No H Anesthesia Checklist Patient Identification Patient Identification: Arm Band and Verbal (Name & ) Structural Data Admitted From: Inpatient Planned Operative Procedure/s: AICD Consent for Planned Operative Procedure(s) Verified: Yes NPO Status Verified Time NPO: 00:00 Chart Verification Results Verified: CBC and BMP Additional verifications Anesthesia Reactions: Yes (pt reports having stoke like symptoms) Hx Blood Transfusions: No Blood Transfusion Reaction: No Airway Assessment C-Spine Mobility Assessed: Yes TMJ Mobility Assessed: Yes Dentition: Edentulous Neurological Assessment Level of Consciousness: Awake Hx Seizures: No Numbness or tingling in extremities: No Anesthesia Plan Anesthesia Risk discussed: Yes Anesthesia Plan: Verified ASA Class: IV Anesthesia Type: MAC
--- NOTE | 2022-07-14 15:45 | XR_ITS ---
FINAL REPORT CLINICAL HISTORY: post pacemaker COMPARISON: July 09, 2022 FINDINGS: Interval placement of a left subclavian pacemaker. The patient has been extubated. Eolk-ga-azkrspmt cardiomegaly. There are multiple sternotomy wires. The mediastinum is within normal limits. There is patchy opacity in the periphery of the right lung and right lung base probably due to acute pneumonia. There is no pneumothorax. The bony thorax is intact. IMPRESSION: Right lung opacities probably due to acute pneumonia. Interval left subclavian pacemaker placement without pneumothorax. Reviewed, Interpreted and Dictated by Sterling Olvera MD Transcribed by Ori Cartwright Authenticated and . [facility]
--- NOTE | 2022-07-14 16:25 | SUR.PHASEII ---
Pt noted to have hematoma on chest area where device was place, notified MD, pressure applied.
[2022-07-14 17:39] LABS: POC Glucose,Bedside 258 (70-110)
--- NOTE | 2022-07-14 18:14 | EXP.ACUTE.PN ---
Subjective *Date: 07/14/22 *Time: 18:16 Interval history: I have visited with patient this morning, had had a restful night. N.p.o. for cardiac procedure. Medical Exam Vital signs and Labs for Last 24 Hours: Vital Signs Temp Pulse Pulse Resp BP BP Pulse Ox 07/14/22 17:00 74 20 174/59 H 92 L 07/14/22 16:45 69 20 185/51 H 99 07/14/22 16:30 69 20 173/57 H 100 07/14/22 16:15 70 21 181/57 H 100 07/14/22 15:58 70 07/14/22 15:56 70 15 159/46 H 98 07/14/22 12:00 50 L 07/14/22 08:00 90 07/14/22 08:00 100 07/14/22 08:00 98.4 F 86 19 175/83 H 100 07/14/22 04:00 65 07/14/22 04:00 98.5 F 68 19 156/61 H 99 07/14/22 00:00 60 07/13/22 20:00 75 07/13/22 23:32 99.0 F 58 L 16 145/57 H 95 07/13/22 20:00 97.9 F 82 25 H 100 Intake and Output 07/14/22 07/14/22 07/14/22 03:59 11:59 19:59 Output Total 450 / 1750 450 / 1750 900 / 900 Balance -450 / -1390 -450 / -1390 -900 / -900 Output: Output, Urine Amount 450 / 1750 450 / 1750 900 / 900 Other: Number of Voids 0 Number of Unmeasured Voids 0 0 0 Number of Bowel Movements 0 0 Weight 196 lb 6.4 oz Laboratory Results - last 24 hr 07/13/22 20:00: POC Glucose 201 H 07/14/22 05:36: WBC 14.6 H, RBC 2.76 L, Hgb 8.6 L, Hct 27.1 L, MCV 98.3, MCH 31.1, MCHC 31.7 L, RDW 14.3, Plt Count 330, MPV 8.7, Neut % (Auto) 83.4 H, Lymph % (Auto) 9.3 L, [place] % (Auto) 6.5, Eos % (Auto) 0.1, Baso % (Auto) 0.7, Neut # (Auto) 12.2 H, Lymph # (Auto) 1.4, [place] # (Auto) 1.0, Eos # (Auto) 0.0, Baso # (Auto) 0.1 07/14/22 05:36: Sodium 138, Potassium 5.0, Chloride 107, Carbon Dioxide 22, Anion Gap 14.0, BUN 44 H, Creatinine 2.30 H, Estimated Creat Clear 31, Estimated GFR 21 L, Est GFR ( Amer) 25 L, Glucose 153 H, Calcium 8.6 07/14/22 06:47: POC Glucose 156 H 07/14/22 10:50: Specimen Source Right radial, O2 % 21%, ABG pH 7.45, ABG pCO2 28.7 L, ABG pO2 109.4 H, ABG HCO3 19.5 L, ABG Total CO2 20.3 L, ABG O2 Saturation 98, ABG Base Excess -4.6 L, Federico Test Acceptable 07/14/22 11:29: POC Glucose 196 H 07/14/22 17:14: POC Glucose 258 H I & O for Labs for Last 24 Hours: Intake & Output 07/12/22 07/13/22 07/14/22 07/15/22 11:59 11:59 11:59 11:59 Intake Total 1486 / 1486 1460 / 1460 360 / 360 Output Total 700 / 700 900 / 900 1750 / 1750 900 / 900 Balance 786 / 786 560 / 560 -1390 / -1390 -900 / -900 Weight 202 lb 11.2 oz 195 lb 8 oz 196 lb 6.4 oz Comment:: Sleepy, alert and oriented when aroused. Lungs have rhonchi, heart rate regular with occasional ectopic beats. Lymphedema noted. Abdomen soft and nontender Assessment and Plan *Assessment and plan (1) Respiratory failure: Status: Acute Category: Medical Code(s): J96.90 - Respiratory failure, unspecified, unspecified whether with hypoxia or hypercapnia (2) CAP (community acquired pneumonia): Status: Acute Category: Medical Code(s): J18.9 - Pneumonia, unspecified organism (3) Severe sepsis with acute organ dysfunction: Status: Acute Category: Medical Code(s): A41.9 - Sepsis, unspecified organism; R65.20 - Severe sepsis without septic shock (4) On mechanically assisted ventilation: Status: Acute Category: Medical Code(s): Z99.11 - Dependence on respirator [ventilator] status Plan [employer] device today per cardiology. Watch afterwards. We will consider further discharge plans based on respiratory status, PT evaluation, need for further antibiotics after outcome from procedure
--- NOTE | 2022-07-14 19:45 | PC.WOUNDNOTE ---
Minimal change to dsg in L U Chest post pacer. Have outlined sangious drainage on dsg. VSS. No c/o. CB in reach and cb in reach.
[2022-07-14 20:17] LABS: POC Glucose,Bedside 303 (70-110)
[2022-07-15] VITALS (8 sets, daily range): BP systolic 128–176; BP diastolic 55–71; PULSE 70–79; RESP 16–18; TEMP 36.6–36.9; O2SAT 100; BMI 36.4
[2022-07-15 05:35] LABS: POC Glucose,Bedside 167 (70-110)
--- NOTE | 2022-07-15 05:54 | PC.NURSE ---
pt is a&ox4. turned q2hr. arms are elevated on pillows for edema. dressing to pacemaker site has moderate amount of blood but has not spread since beginning of shift. pt has not c/o pain this shift. daughter is at bedside. CB in reach.
[2022-07-15 06:32] LABS: Basophils # 0.1 K/mm3 (0-0.2); Basophils % 0.6 % (0.1-2.0); Eosinophils % 0.1 % (0.1-12.0); Hematocrit 25.9 % (37.0-47.0); Hemoglobin 8.1 g/dL (12.2-16.2); Lymphocytes # 1.4 K/mm3 (0.7-4.5); Lymphocytes % 9.5 % (10-50); Mean Corpuscular HGB Conc 31.3 g/dL (31.8-35.4); Mean Corpuscular Hemoglobin 30.9 pg (27.0-31.2); Mean Corpuscular Volume 98.5 fl (81-99); Mean Platelet Volume 8.8 fl (7.4-10.4); Monocytes # 0.8 K/mm3 (0.1-1.0); Monocytes % 5.8 % (1.7-9.3); Neutrophils # 11.9 K/mm3 (1.8-7.8); Neutrophils % 84.1 % (37.0-80.0); Platelet Count 319 K/mm3 (142-424); Red Blood Count 2.63 M/mm3 (4.20-5.40); Red Cell Distribution Width 14.3 % (11.5-17.5); White Blood Count 14.2 K/mm3 (4.8-10.8)
[2022-07-15 06:34] LABS: Anion Gap 13.3 mEq/L (5-15); Blood Urea Nitrogen 44 mg/dl (7-17); Calcium 8.6 mg/dl (8.4-10.2); Carbon Dioxide 21 mmol/L (22.0-30.0); Chloride 108 mmol/L (98-107); Creatinine Clearance Estimated 36 mL/min (50-200); Estimated Glomerular Filt Rate 24 ml/min (>60); GFR (African American) 30 ML/MIN (>60); Glucose 154 mg/dl (74-100); Potassium 5.3 mmoL/L (3.5-5.1); Sodium 137 mmol/L (136-145)
--- NOTE | 2022-07-15 08:33 | PC.NURSE ---
DR. FINLEY V/O TO HOLD PO POTASSIUM THIS AM
--- NOTE | 2022-07-15 08:35 | EXP.ACUTE.PN ---
Subjective *Date: 07/15/22 *Time: 08:35 Interval history: Patient is awake, alert, has eaten breakfast. Is in good spirits. Very minimal pain from pacemaker insertion site. Medical Exam Vital signs and Labs for Last 24 Hours: Vital Signs Temp Pulse Pulse Resp BP BP Pulse Ox 07/15/22 08:00 97.9 F 70 16 146/64 H 100 07/15/22 04:00 98.4 F 70 16 148/62 H 100 07/15/22 04:00 70 07/14/22 22:45 70 14 114/48 L 100 07/14/22 21:45 70 16 123/53 L 100 07/15/22 00:00 70 07/15/22 00:00 97.8 F 70 16 128/55 L 100 07/14/22 20:00 70 07/14/22 20:45 83 18 165/81 H 100 07/14/22 19:45 70 18 125/52 L 100 07/14/22 21:05 80 07/14/22 21:05 83 07/14/22 20:00 97.6 F 70 19 138/60 100 07/14/22 18:15 18 149/65 H 100 07/14/22 18:45 70 16 147/69 H 100 07/14/22 17:45 83 18 148/65 H 98 07/14/22 17:15 97.8 F 70 16 156/65 H 99 07/14/22 17:00 74 20 174/59 H 92 L 07/14/22 16:45 69 20 185/51 H 99 07/14/22 16:30 69 20 173/57 H 100 07/14/22 16:15 70 21 181/57 H 100 07/14/22 15:58 70 07/14/22 15:56 70 15 159/46 H 98 07/14/22 12:00 50 L Intake and Output 07/14/22 07/15/22 07/15/22 19:59 03:59 11:59 Intake Total 300 / 660 360 / 660 Output Total 900 / 1700 800 / 1700 Balance -600 / -1040 -440 / -1040 Intake: Intake, Oral Amount 360 / 360 Intake, Total IV Amount 300 / 300 Vancomycin/Water For Inj (Peg) 300 / 300 1.5 gm In 300 ml @ 150 mls/hr IV Q48H MARCIA Rx#:[id number] Output: Output, Urine Amount 900 / 1700 800 / 1700 Other: Number of Unmeasured Voids 0 0 Number of Bowel Movements 0 Weight 198 lb 2 oz Patient Weight 07/15/22 11:59 Weight 198 lb 2 oz Laboratory Results - last 24 hr 07/14/22 10:50: Specimen Source Right radial, O2 % 21%, ABG pH 7.45, ABG pCO2 28.7 L, ABG pO2 109.4 H, ABG HCO3 19.5 L, ABG Total CO2 20.3 L, ABG O2 Saturation 98, ABG Base Excess -4.6 L, Federico Test Acceptable 07/14/22 11:29: POC Glucose 196 H 07/14/22 17:14: POC Glucose 258 H 07/14/22 20:09: POC Glucose 303 H* 07/15/22 05:27: POC Glucose 167 H 07/15/22 05:50: WBC 14.2 H, RBC 2.63 L, Hgb 8.1 L, Hct 25.9 L, MCV 98.5, MCH 30.9, MCHC 31.3 L, RDW 14.3, Plt Count 319, MPV 8.8, Neut % (Auto) 84.1 H, Lymph % (Auto) 9.5 L, [place] % (Auto) 5.8, Eos % (Auto) 0.1, Baso % (Auto) 0.6, Neut # (Auto) 11.9 H, Lymph # (Auto) 1.4, [place] # (Auto) 0.8, Eos # (Auto) 0.0, Baso # (Auto) 0.1 07/15/22 05:50: Sodium 137, Potassium 5.3 H, Chloride 108 H, Carbon Dioxide 21 L, Anion Gap 13.3, BUN 44 H, Creatinine 2.00 H, Estimated Creat Clear 36, Estimated GFR 24 L, Est GFR ( Amer) 30 L, Glucose 154 H, Calcium 8.6 I & O for Labs for Last 24 Hours: Intake & Output 07/12/22 07/13/22 07/14/22 07/15/22 11:59 11:59 11:59 11:59 Intake Total 1486 / 1486 1460 / 1460 360 / 360 660 / 660 Output Total 700 / 700 900 / 900 1750 / 1750 1700 / 1700 Balance 786 / 786 560 / 560 -1390 / -1390 -1040 / -1040 Weight 202 lb 11.2 oz 195 lb 8 oz 196 lb 6.4 oz 198 lb 2 oz Comment:: Heart rate regular. Monitor shows pacer spikes. Blood pressure acceptable. Scattered rhonchi in the lung bases. Abdomen soft, lymphedema unchanged. She is more alert than yesterday and talkative. Assessment and Plan *Assessment and plan (1) Respiratory failure: Status: Acute Category: Medical Code(s): J96.90 - Respiratory failure, unspecified, unspecified whether with hypoxia or hypercapnia (2) CAP (community acquired pneumonia): Status: Acute Category: Medical Code(s): J18.9 - Pneumonia, unspecified organism (3) Severe sepsis with acute organ dysfunction: Status: Acute Category: Medical Code(s): A41.9 - Sepsis, unspecified organism; R65.20 - Severe sepsis without septic shock (4) On mechanically assisted ventilation: Stat
--- NOTE | 2022-07-15 10:09 | EXP.PULM.PN ---
Subjective *Date: 07/15/22 *Time: 10:09 Pulmonology Exam Inpatient Vital signs and Labs for Last 24 Hours: Temp Pulse Resp BP Pulse Ox FiO2 97.9 F 70 16 146/64 H 100 100 07/15/22 08:00 07/15/22 08:00 07/15/22 08:00 07/15/22 08:00 07/15/22 08:00 07/11/22 22:00 Laboratory Results - last 24 hr 07/14/22 10:50: Specimen Source Right radial, O2 % 21%, ABG pH 7.45, ABG pCO2 28.7 L, ABG pO2 109.4 H, ABG HCO3 19.5 L, ABG Total CO2 20.3 L, ABG O2 Saturation 98, ABG Base Excess -4.6 L, Federico Test Acceptable 07/14/22 11:29: POC Glucose 196 H 07/14/22 17:14: POC Glucose 258 H 07/14/22 20:09: POC Glucose 303 H* 07/15/22 05:27: POC Glucose 167 H 07/15/22 05:50: WBC 14.2 H, RBC 2.63 L, Hgb 8.1 L, Hct 25.9 L, MCV 98.5, MCH 30.9, MCHC 31.3 L, RDW 14.3, Plt Count 319, MPV 8.8, Neut % (Auto) 84.1 H, Lymph % (Auto) 9.5 L, [place] % (Auto) 5.8, Eos % (Auto) 0.1, Baso % (Auto) 0.6, Neut # (Auto) 11.9 H, Lymph # (Auto) 1.4, [place] # (Auto) 0.8, Eos # (Auto) 0.0, Baso # (Auto) 0.1 07/15/22 05:50: Sodium 137, Potassium 5.3 H, Chloride 108 H, Carbon Dioxide 21 L, Anion Gap 13.3, BUN 44 H, Creatinine 2.00 H, Estimated Creat Clear 36, Estimated GFR 24 L, Est GFR ( Amer) 30 L, Glucose 154 H, Calcium 8.6 I & O for Labs for Last 24 Hours: Intake & Output 07/12/22 07/13/22 07/14/22 07/15/22 23:59 23:59 23:59 23:59 Intake Total 1460 / 1460 580 / 580 300 / 300 360 / 360 Output Total 1100 / 1100 1800 / 1800 1350 / 1350 800 / 800 Balance 360 / 360 -1220 / -1220 -1050 / -1050 -440 / -440 Weight 202 lb 11.2 oz 195 lb 8 oz 196 lb 6.4 oz 198 lb 2 oz Microbiology Reports for the Last 24 Hours: Microbiology 07/08/22 20:40 Blood - Catheterized Blood Culture - Final Staphylococcus epidermidis Enterococcus faecalis Staphylococcus hominis 07/08/22 20:40 Blood - Catheterized Blood Culture - Final Enterococcus faecalis Staphylococcus epidermidis Staph haemolyticus/lugdunensis Head: Present normocephalic and atraumatic ENT: Present normal exam and normal oropharynx Neck: Present normal inspection Respiratory: Present rhonchi; Absent respiratory distress or wheezes Cardiac: Present Irregularly Regular, Tachycardia and radial pulses present; Absent S1/S2 GI: Present soft and distention; Absent tenderness or guarding Rectal (female): Present deferred (female): Present deferred Skin: Present intact; Absent cyanosis or jaundice Neuro: Present alert and awake Comment:: Intubated and sedated Extremities: Present edema; Absent clubbing or cyanosis Assessment and Plan *Assessment and plan (1) Respiratory failure: Status: Acute Category: Medical Code(s): J96.90 - Respiratory failure, unspecified, unspecified whether with hypoxia or hypercapnia (2) CAP (community acquired pneumonia): Status: Acute Category: Medical Code(s): J18.9 - Pneumonia, unspecified organism (3) Severe sepsis with acute organ dysfunction: Status: Acute Category: Medical Code(s): A41.9 - Sepsis, unspecified organism; R65.20 - Severe sepsis without septic shock Plan #Right lower lobe pneumonia: #Bactremia: History of CHF CAD and lymphedema present with worsening respiratory distress and altered mentation needing intubation and mechanical ventilator support. ABG showed hypercarbic respiratory failure. Admission labs personally reviewed, significant leukocytosis with WBC 20s, improving to 18.2 this morning. Neutrophilic predominant. Significant hypokalemia on admission along with MASSIMO on CKD managed by primary team. Troponinemia with significant delta. BNP significantly elevated at 38,900. Blood gas from admission severe hypercarbic respiratory failure with hypoxic respiratory failure, improved, most recent 1 showed respiratory alkalosis. Chest x-ray on ad
--- NOTE | 2022-07-15 10:09 | EXP.CARD.PN ---
Subjective Subjective Date: 07/15/22 Time: 09:00 Principal diagnosis: Pneumonia, CHF, Cardiomyopathy Exam Data for Last 24 hours Vital signs and Labs for Last 24 Hours: Temp Pulse Resp BP Pulse Ox FiO2 97.9 F 70 16 146/64 H 100 100 07/15/22 08:00 07/15/22 08:00 07/15/22 08:00 07/15/22 08:00 07/15/22 08:00 07/11/22 22:00 Laboratory Results - last 24 hr 07/14/22 10:50: Specimen Source Right radial, O2 % 21%, ABG pH 7.45, ABG pCO2 28.7 L, ABG pO2 109.4 H, ABG HCO3 19.5 L, ABG Total CO2 20.3 L, ABG O2 Saturation 98, ABG Base Excess -4.6 L, Federico Test Acceptable 07/14/22 11:29: POC Glucose 196 H 07/14/22 17:14: POC Glucose 258 H 07/14/22 20:09: POC Glucose 303 H* 07/15/22 05:27: POC Glucose 167 H 07/15/22 05:50: WBC 14.2 H, RBC 2.63 L, Hgb 8.1 L, Hct 25.9 L, MCV 98.5, MCH 30.9, MCHC 31.3 L, RDW 14.3, Plt Count 319, MPV 8.8, Neut % (Auto) 84.1 H, Lymph % (Auto) 9.5 L, [place] % (Auto) 5.8, Eos % (Auto) 0.1, Baso % (Auto) 0.6, Neut # (Auto) 11.9 H, Lymph # (Auto) 1.4, [place] # (Auto) 0.8, Eos # (Auto) 0.0, Baso # (Auto) 0.1 07/15/22 05:50: Sodium 137, Potassium 5.3 H, Chloride 108 H, Carbon Dioxide 21 L, Anion Gap 13.3, BUN 44 H, Creatinine 2.00 H, Estimated Creat Clear 36, Estimated GFR 24 L, Est GFR ( Amer) 30 L, Glucose 154 H, Calcium 8.6 I & O for Last 24 hours: Intake & Output 07/12/22 07/13/22 07/14/22 07/15/22 23:59 23:59 23:59 23:59 Intake Total 1460 / 1460 580 / 580 300 / 300 360 / 360 Output Total 1100 / 1100 1800 / 1800 1350 / 1350 800 / 800 Balance 360 / 360 -1220 / -1220 -1050 / -1050 -440 / -440 Weight 202 lb 11.2 oz 195 lb 8 oz 196 lb 6.4 oz 198 lb 2 oz Constitutional Constitutional: no acute distress and obese *Routine HEENT Exam Head: Present normocephalic and atraumatic ENT: Present mucous membranes moist *Routine Neck Exam Neck: Present supple, full ROM and normal carotid upstroke; Absent JVD, carotid bruit or lymphadenopathy *Routine Respiratory Exam Respiratory: Present wheezes (Expiratory wheezes noted in the bilateral upper lobes), normal respiratory effort, able to speak in complete sentences and symmetric chest movement *Routine Cardiovascular Exam Cardiovascular: Present RRR, Normal S1 and Normal S2; Absent murmur or gallop *Routine Abdominal Exam Abdominal: Present soft and normoactive bowel sounds; Absent tenderness, distended or organomegaly *Routine Extremities Exam Extremities: Present full ROM, pulses intact and normal capillary refill; Absent cyanosis, clubbing or edema *Routine Skin Exam Skin: Present intact and warm; Absent erythema *Routine Neurological Exam Neurological: Present alert, oriented X3 and CN II-XII intact; Absent sensory deficit or motor deficit Routine Psychiatric Exam Psychiatric: Present normal affect Progress Note: A&P Assessment and plan (1) Cardiomyopathy: Status: Acute (2) Systolic CHF with reduced left ventricular function, NYHA class 3: Status: Acute (3) Respiratory failure: Status: Acute (4) CAP (community acquired pneumonia): Status: Acute (5) Severe sepsis with acute organ dysfunction: Status: Acute (6) Anemia, chronic renal failure: Status: Acute (7) Hyperkalemia: Status: Acute (8) CAD (coronary artery disease): Status: Chronic (9) Diabetes mellitus: Status: Chronic (10) Hyperlipidemia: Status: Chronic (11) Hypertension: Status: Chronic (12) Stage 4 chronic kidney disease: Status: Chronic Assessment and Plan Assessment and Plan for All Diagnoses:: Plan: 1. The patient was admitted to the hospital with respiratory failure. She was intubated and put on mechanical ventilation. She has been extubated and is now on room air. She had multilobular pneumonia with ards which is being managed by the hospitalist and pulmonology. Will defer. 2. The patient also had an elevated troponin on admission was most likely secondary to demand ischemia from her pneumonia. No pl
[2022-07-15 11:11] LABS: ABG Base Excess -5.7 mmol/L (-2.4-2.3); ABG HCO3 19.3 mmhg (22.0-26.0); ABG Oxygen Saturation 90 % (90-100); ABG PCO2 32.8 mmhg (35.0-45.0); ABG PH 7.39 mmol/L (7.35-7.45); ABG PO2 58.9 mmhg (80-100); ABG TCO2 20.3 mmhg (23-27)
[2022-07-15 11:13] LABS: Allen's Test Acceptable; Oxygen 21 %; Source Right Radial
[2022-07-15 11:39] LABS: POC Glucose,Bedside 223 (70-110)
[2022-07-15 16:35] LABS: POC Glucose,Bedside 232 (70-110)
--- NOTE | 2022-07-15 19:02 | PC.NURSE ---
pt is aox4 but has episodes of confusion noted. bruising and swelling noted to left upper chest wall. slight edema to BUE and BLE. no needs voiced to staff.
[2022-07-15 20:49] LABS: POC Glucose,Bedside 260 (70-110)
[2022-07-16] VITALS (18 sets, daily range): BP systolic 160–187; BP diastolic 59–72; PULSE 65–85; RESP 18–21; TEMP 36.7–37.3; O2SAT 99–100; BMI 34.3
[2022-07-16 06:23] LABS: POC Glucose,Bedside 136 (70-110)
[2022-07-16 06:31] LABS: Basophils # 0.1 K/mm3 (0-0.2); Basophils % 0.5 % (0.1-2.0); Eosinophils % 0.1 % (0.1-12.0); Hematocrit 24.3 % (37.0-47.0); Hemoglobin 7.7 g/dL (12.2-16.2); Lymphocytes # 1.5 K/mm3 (0.7-4.5); Mean Corpuscular HGB Conc 31.9 g/dL (31.8-35.4); Mean Corpuscular Hemoglobin 31.6 pg (27.0-31.2); Mean Corpuscular Volume 99.2 fl (81-99); Monocytes # 0.7 K/mm3 (0.1-1.0); Monocytes % 5.5 % (1.7-9.3); Neutrophils # 9.6 K/mm3 (1.8-7.8); Neutrophils % 80.9 % (37.0-80.0); Platelet Count 264 K/mm3 (142-424); Red Blood Count 2.45 M/mm3 (4.20-5.40); Red Cell Distribution Width 14.6 % (11.5-17.5); White Blood Count 11.9 K/mm3 (4.8-10.8)
[2022-07-16 06:46] LABS: Anion Gap 12.6 mEq/L (5-15); Blood Urea Nitrogen 43 mg/dl (7-17); Calcium 8.5 mg/dl (8.4-10.2); Carbon Dioxide 21 mmol/L (22.0-30.0); Chloride 107 mmol/L (98-107); Creatinine Clearance Estimated 33 mL/min (50-200); Estimated Glomerular Filt Rate 24 ml/min (>60); GFR (African American) 30 ML/MIN (>60); Glucose 131 mg/dl (74-100); Potassium 4.6 mmoL/L (3.5-5.1); Sodium 136 mmol/L (136-145)
--- NOTE | 2022-07-16 09:58 | EXP.PULM.PN ---
Subjective *Date: 07/16/22 *Time: 11:32 Interval history: No acute respiratory events. Continues to remain on room air. Pulmonology Exam Inpatient Vital signs and Labs for Last 24 Hours: Temp Pulse Resp BP Pulse Ox FiO2 98.7 F 70 21 166/66 H 99 100 07/16/22 08:00 07/16/22 08:00 07/16/22 08:00 07/16/22 08:00 07/16/22 08:00 07/11/22 22:00 Laboratory Results - last 24 hr 07/15/22 11:00: Specimen Source Right radial, O2 % 21, ABG pH 7.39, ABG pCO2 32.8 L, ABG pO2 58.9 L, ABG HCO3 19.3 L, ABG Total CO2 20.3 L, ABG O2 Saturation 90, ABG Base Excess -5.7 L, Federico Test Acceptable 07/15/22 11:31: POC Glucose 223 H 07/15/22 16:25: POC Glucose 232 H 07/15/22 20:40: POC Glucose 260 H 07/16/22 05:52: WBC 11.9 H, RBC 2.45 L, Hgb 7.7 L, Hct 24.3 L, MCV 99.2 H, MCH 31.6 H, MCHC 31.9, RDW 14.6, Plt Count 264, MPV 9.0, Neut % (Auto) 80.9 H, Lymph % (Auto) 13.0, [place] % (Auto) 5.5, Eos % (Auto) 0.1, Baso % (Auto) 0.5, Neut # (Auto) 9.6 H, Lymph # (Auto) 1.5, [place] # (Auto) 0.7, Eos # (Auto) 0.0, Baso # (Auto) 0.1 07/16/22 05:52: Sodium 136, Potassium 4.6, Chloride 107, Carbon Dioxide 21 L, Anion Gap 12.6, BUN 43 H, Creatinine 2.00 H, Estimated Creat Clear 33, Estimated GFR 24 L, Est GFR ( Amer) 30 L, Glucose 131 H, Calcium 8.5 07/16/22 06:16: POC Glucose 136 H I & O for Labs for Last 24 Hours: Intake & Output 07/13/22 07/14/22 07/15/2222 23:59 23:59 23:59 23:59 Intake Total 580 / 580 300 / 300 720 / 720 240 / 240 Output Total 1800 / 1800 1350 / 1350 1730 / 1730 1100 / 1100 Balance -1220 / -1220 -1050 / -1050 -1010 / -1010 -860 / -860 Weight 195 lb 8 oz 196 lb 6.4 oz 198 lb 2 oz 186 lb 8 oz Microbiology Reports for the Last 24 Hours: Microbiology 07/10/22 13:10 Blood Blood Culture - Final NO GROWTH AFTER 5 DAYS 07/10/22 11:05 Blood Blood Culture - Final NO GROWTH AFTER 5 DAYS Head: Present normocephalic and atraumatic ENT: Present normal exam and normal oropharynx Neck: Present normal inspection Respiratory: Present rhonchi; Absent respiratory distress or wheezes Cardiac: Present Irregularly Regular, Tachycardia and radial pulses present; Absent S1/S2 GI: Present soft and distention; Absent tenderness or guarding Rectal (female): Present deferred (female): Present deferred Skin: Present intact; Absent cyanosis or jaundice Neuro: Present alert and awake Comment:: Intubated and sedated Extremities: Present edema; Absent clubbing or cyanosis Assessment and Plan *Assessment and plan (1) CAP (community acquired pneumonia): Status: Acute Category: Medical Code(s): J18.9 - Pneumonia, unspecified organism Plan #Right lower lobe pneumonia: History of CHF CAD and lymphedema present with worsening respiratory distress and altered mentation needing intubation and mechanical ventilator support. ABG showed hypercarbic respiratory failure. Admission labs personally reviewed, significant leukocytosis with WBC 20s, improving to 18.2 this morning. Neutrophilic predominant. Significant hypokalemia on admission along with MASSIMO on CKD managed by primary team. Troponinemia with significant delta. BNP significantly elevated at 38,900. Blood gas from admission severe hypercarbic respiratory failure with hypoxic respiratory failure, improved, most recent 1 showed respiratory alkalosis. Chest x-ray on admission prominent right lower lobe and middle lobe airspace disease. She was previously admitted in March 2021 for volume overload hypoxic respiratory failure. Patient has been on minimal ventilator settings throughout her hospital course. Hospital was also complicated by NSTEMI and echo showing new reduced EF and regional wall abnormalities. Cardiology following. Patient was successfully extubated 07/10/2022. Urine culture showing Klebsiella and blood cultures showing staph mecA +ve and Enterococcus , vancomycin was added yesterday along with cont
--- NOTE | 2022-07-16 09:59 | XR_ITS ---
FINAL REPORT CLINICAL HISTORY: Pneumonia COMPARISON: 07/14/2022 FINDINGS: PORTABLE CHEST A left subclavian pacemaker is present. There is mild cardiomegaly. The mediastinum is unremarkable. There are patchy airspace opacities in the right lung base which have improved, probably due to resolving pneumonia. No new infiltrate is seen. There is no pneumothorax. IMPRESSION: Improved patchy airspace opacities in the right lung base probably due to resolving pneumonia. Reviewed, Interpreted and Dictated by Sterling Olvera MD Transcribed by Nettie Black Authenticated and [facility]
--- NOTE | 2022-07-16 11:37 | EXP.CARD.PN ---
Subjective Subjective Date: 07/16/22 Time: 10:30 Principal diagnosis: Pneumonia, CHF, Cardiomyopathy Interval history: This is a 70-year-old white female who who presented to the hospital with respiratory failure. She was initially intubated on mechanical ventilation. She has subsequently been extubated. She underwent biventricular AICD placement this hospital admission and tolerated the procedure well. She does have minimal bleeding noted from the insertion site but this has stopped and not worsened since yesterday. She does have bruising noted around the site. She has some soreness but denies any chest pain or pressure. She denies any fever, chills, nausea, vomiting or diarrhea. She states that she is feeling pretty well today with just fatigue and lack of energy. Exam Data for Last 24 hours Vital signs and Labs for Last 24 Hours: Temp Pulse Resp BP Pulse Ox FiO2 98.7 F 70 21 166/66 H 100 100 07/16/22 08:00 07/16/22 08:00 07/16/22 08:00 07/16/22 08:00 07/16/22 08:00 07/11/22 22:00 Laboratory Results - last 24 hr 07/15/22 11:31: POC Glucose 223 H 07/15/22 16:25: POC Glucose 232 H 07/15/22 20:40: POC Glucose 260 H 07/16/22 05:52: WBC 11.9 H, RBC 2.45 L, Hgb 7.7 L, Hct 24.3 L, MCV 99.2 H, MCH 31.6 H, MCHC 31.9, RDW 14.6, Plt Count 264, MPV 9.0, Neut % (Auto) 80.9 H, Lymph % (Auto) 13.0, [place] % (Auto) 5.5, Eos % (Auto) 0.1, Baso % (Auto) 0.5, Neut # (Auto) 9.6 H, Lymph # (Auto) 1.5, [place] # (Auto) 0.7, Eos # (Auto) 0.0, Baso # (Auto) 0.1 07/16/22 05:52: Sodium 136, Potassium 4.6, Chloride 107, Carbon Dioxide 21 L, Anion Gap 12.6, BUN 43 H, Creatinine 2.00 H, Estimated Creat Clear 33, Estimated GFR 24 L, Est GFR ( Amer) 30 L, Glucose 131 H, Calcium 8.5 07/16/22 06:16: POC Glucose 136 H 07/16/22 11:25: Crossmatch ([facility]) See Detail I & O for Last 24 hours: Intake & Output 07/13/22 07/14/22 07/15/22 07/16/22 23:59 23:59 23:59 23:59 Intake Total 580 / 580 300 / 300 720 / 720 240 / 240 Output Total 1800 / 1800 1350 / 1350 1730 / 1730 1100 / 1100 Balance -1220 / -1220 -1050 / -1050 -1010 / -1010 -860 / -860 Weight 195 lb 8 oz 196 lb 6.4 oz 198 lb 2 oz 186 lb 8 oz Microbiology Reports for the Last 24 Hours: Microbiology 07/10/22 13:10 Blood Blood Culture - Final NO GROWTH AFTER 5 DAYS 07/10/22 11:05 Blood Blood Culture - Final NO GROWTH AFTER 5 DAYS Narrative: Telemetry strip shows ventricular pacing with a rate of 73 bpm. Constitutional Constitutional: no acute distress and obese *Routine HEENT Exam Head: Present normocephalic and atraumatic ENT: Present mucous membranes moist *Routine Neck Exam Neck: Present supple, full ROM and normal carotid upstroke; Absent JVD, carotid bruit or lymphadenopathy *Routine Respiratory Exam Respiratory: Present wheezes (Expiratory wheezes noted in the bilateral upper lobes), normal respiratory effort, able to speak in complete sentences and symmetric chest movement *Routine Cardiovascular Exam Cardiovascular: Present RRR, Normal S1 and Normal S2; Absent murmur or gallop *Routine Abdominal Exam Abdominal: Present soft and normoactive bowel sounds; Absent tenderness, distended or organomegaly *Routine Extremities Exam Extremities: Present full ROM, pulses intact and normal capillary refill; Absent cyanosis, clubbing or edema *Routine Skin Exam Skin: Present intact and warm; Absent erythema *Routine Neurological Exam Neurological: Present alert, oriented X3 and CN II-XII intact; Absent sensory deficit or motor deficit Routine Psychiatric Exam Psychiatric: Present normal affect Progress Note: A&P Assessment and plan (1) Systolic CHF with reduced left ventricular function, NYHA class 3: Status: Acute (2) CAP (community acquired pneumonia): Status: Acute (3) Cardiomyopathy: Status: Acute (4) Anemia, chronic renal failure: Status: Acute (5) Respiratory failure: Status: Acut
[2022-07-16 12:18] LABS: Vancomycin,Trough 16.7 ug/mL (5.0-10.0)
[2022-07-16 12:24] LABS: Chloride 108 mmol/L (98-107); Potassium 4.7 mmoL/L (3.5-5.1); Sodium 137 mmol/L (136-145)
[2022-07-16 12:27] LABS: Anion Gap 12.7 mEq/L (5-15); Blood Urea Nitrogen 40 mg/dl (7-17); Calcium 8.1 mg/dl (8.4-10.2); Carbon Dioxide 21 mmol/L (22.0-30.0); Creatinine Clearance Estimated 37 mL/min (50-200); Estimated Glomerular Filt Rate 28 ml/min (>60); GFR (African American) 33 ML/MIN (>60); Glucose 197 mg/dl (74-100)
--- NOTE | 2022-07-16 13:23 | EXP.PHA.CONS ---
Pharmacy Consult Date: 07/16/22 Time: 13:23 Referring provider: DR. ZAVALA Reason for Consult:: VANCOMYCIN TROUGH LEVEL Allergies Allergy/AdvReac Type Severity Reaction Status Date / Time fentanyl [FENTANYL] Allergy Unknown Verified 07/09/22 02:23 latex [LATEX] Allergy Unknown Verified 07/09/22 02:23 codeine AdvReac Unknown Verified 07/09/22 02:23 Home Medications Medication Instructions Recorded Confirmed Type aspirin 81 mg tablet,delayed 81 mg PO DAILY Heart disease 09/17/17 07/08/22 History release (Adult Low Dose Aspirin) clopidogrel 75 mg tablet 75 mg PO DAILY PLATELET INHIBITOR 09/17/17 07/08/22 History furosemide 40 mg tablet 40 mg PO BID Fluid 09/17/17 07/08/22 History sitagliptin phosphate 50 mg tablet 50 mg PO DAILY Diabetes 09/17/17 07/08/22 History (Januvia) famotidine 20 mg tablet 20 mg PO BID Acid reflux 09/18/17 07/08/22 History pravastatin 80 mg tablet 80 mg PO HS Cholesterol 05/28/18 07/08/22 History citalopram 20 mg tablet 20 mg PO DAILY Depression 90 days 09/16/18 07/08/22 History cholecalciferol (vitamin D3) 25 1,000 unit PO DAILY Supplement 05/12/19 07/09/22 History mcg (1,000 unit) tablet losartan 100 mg tablet 100 mg PO DAILY Hypertension 10/04/19 07/08/22 History omeprazole 20 mg capsule,delayed 20 mg PO BID Acid reflux 01/10/20 07/08/22 History release insulin NPH-regular 70-30 U-100 20 unit SQ BID Diabetes 02/09/20 07/09/22 History insulin 100 unit/mL subcutaneous pen amlodipine 5 mg tablet 2.5 mg PO BID BP 10/23/20 07/08/22 History carvedilol 12.5 mg tablet 6.25 mg PO HS BP 10/23/20 07/08/22 History metolazone 5 mg tablet 5 mg PO DAILY BLOOD PRESSURE 04/11/21 07/08/22 History cyanocobalamin (vitamin B-12) 1,000 mcg IM MONTHLY Supplement 09/19/21 07/09/22 History 1,000 mcg/mL injection solution gabapentin 100 mg capsule 100 mg PO TID nerve pain 09/19/21 07/08/22 History tramadol 50 mg tablet 50 mg PO TID PRN Pain 09/19/21 07/08/22 History acetaminophen 500 mg tablet 1,000 mg PO Q6H PRN Mild Pain 07/09/22 07/09/22 History (Acetaminophen Extra Strength) (Scale Score 1-4) ferrous sulfate 325 mg (65 mg 325 mg PO DAILY supplement 07/09/22 07/09/22 History iron) tablet fluticasone propionate 50 2 spray intranasal DAILY PRN 07/09/22 07/09/22 History mcg/actuation nasal Allergies spray,suspension hydrocortisone 2.5 % lotion 1 applic topical TID Skin care 07/09/22 07/09/22 History mupirocin 2 % topical ointment 1 applic topical TID Skin care 07/09/22 07/09/22 History nitroglycerin 0.4 mg sublingual 0.4 mg sublingual Q5M PRN Chest 07/09/22 07/09/22 History tablet Pain New Prescriptions to Start Prescriptions: Height: 1.57 m Weight: 84.595 kg Laboratory Results:: Laboratory Results - last 24 hr 07/15/22 16:25: POC Glucose 232 H 07/15/22 20:40: POC Glucose 260 H 07/16/22 05:52: WBC 11.9 H, RBC 2.45 L, Hgb 7.7 L, Hct 24.3 L, MCV 99.2 H, MCH 31.6 H, MCHC 31.9, RDW 14.6, Plt Count 264, MPV 9.0, Neut % (Auto) 80.9 H, Lymph % (Auto) 13.0, [place] % (Auto) 5.5, Eos % (Auto) 0.1, Baso % (Auto) 0.5, Neut # (Auto) 9.6 H, Lymph # (Auto) 1.5, [place] # (Auto) 0.7, Eos # (Auto) 0.0, Baso # (Auto) 0.1 07/16/22 05:52: Sodium 136, Potassium 4.6, Chloride 107, Carbon Dioxide 21 L, Anion Gap 12.6, BUN 43 H, Creatinine 2.00 H, Estimated Creat Clear 33, Estimated GFR 24 L, Est GFR ( Amer) 30 L, Glucose 131 H, Calcium 8.5 07/16/22 06:16: POC Glucose 136 H 07/16/22 11:25: Vancomycin Trough 16.7 H 07/16/22 11:25: Sodium 137, Potassium 4.7, Chloride 108 H, Carbon Dioxide 21 L, Anion Gap 12.7, BUN 40 H, Creatinine 1.80 H, Estimated Creat Clear 37, Estimated GFR 28 L, Est GFR ( Amer) 33 L, Glucose 197 H D, Calcium 8.1 L 07/16/22 11:25: Blood Type O Positive, Antibody Screen Negative, Crossmatch ([facility]) See Detail Medical History: Medical History (Updated 07/15/22 @ 08:36 by Royer Parrish MD) Anemia, chronic renal failure Cardiomyopathy CHF (congestive heart failure) Coronary chuy
--- NOTE | 2022-07-16 14:53 | EXP.ACUTE.PN ---
Subjective *Date: 07/16/22 *Time: 14:53 Interval history: Patient did well overnight but has not really met any kind of physical therapy goals and did not get up into a chair yesterday. Her hemoglobin this morning was below 7.5 g and she will be getting 1 unit of packed cells this morning. In talking to her and her daughter she is actually willing to consider skilled care for ongoing rehab. Medical Exam Vital signs and Labs for Last 24 Hours: Vital Signs Temp Pulse Pulse Resp BP BP Pulse Ox 07/16/22 14:35 98.9 F 77 18 175/70 H 100 07/16/22 14:30 98.6 F 70 20 175/59 H 100 07/16/22 14:25 98.9 F 71 18 176/62 H 100 07/16/22 14:20 99.1 F 78 20 168/59 H 100 07/16/22 14:00 99.1 F 81 20 187/69 H 100 07/16/22 11:42 98.6 F 85 20 185/72 H 100 07/16/22 08:00 70 07/16/22 08:00 100 07/16/22 08:00 98.7 F 70 21 166/66 H 99 07/16/22 04:00 70 07/16/22 04:00 98.4 F 70 20 160/63 H 100 07/16/22 00:00 70 07/16/22 00:00 100 07/16/22 00:00 98.1 F 70 20 160/64 H 100 07/15/22 20:00 70 07/15/22 20:00 98.3 F 79 18 176/71 H 100 07/15/22 20:00 100 07/15/22 16:00 70 07/15/22 15:56 98.3 F 70 17 144/59 H 100 Intake and Output 07/16/22 07/16/22 07/16/22 03:59 11:59 19:59 Intake Total 240 / 600 240 / 240 Output Total 2200 / 2780 0 / 0 Balance -1960 / -2180 240 / 240 Intake: Intake, Oral Amount 240 / 600 240 / 240 Intake (Blood Product) Amt 0 / 0 Red Blood Cells Unit 0 / 0 [id number] Output: Output, Urine Amount 2200 / 2780 0 / 0 Other: Number of Unmeasured Voids 1 0 Weight 186 lb 8 oz 186 lb 8 oz Patient Weight 07/17/22 11:59 Weight 186 lb 8 oz Laboratory Results - last 24 hr 07/15/22 16:25: POC Glucose 232 H 07/15/22 20:40: POC Glucose 260 H 07/16/22 05:52: WBC 11.9 H, RBC 2.45 L, Hgb 7.7 L, Hct 24.3 L, MCV 99.2 H, MCH 31.6 H, MCHC 31.9, RDW 14.6, Plt Count 264, MPV 9.0, Neut % (Auto) 80.9 H, Lymph % (Auto) 13.0, [place] % (Auto) 5.5, Eos % (Auto) 0.1, Baso % (Auto) 0.5, Neut # (Auto) 9.6 H, Lymph # (Auto) 1.5, [place] # (Auto) 0.7, Eos # (Auto) 0.0, Baso # (Auto) 0.1 07/16/22 05:52: Sodium 136, Potassium 4.6, Chloride 107, Carbon Dioxide 21 L, Anion Gap 12.6, BUN 43 H, Creatinine 2.00 H, Estimated Creat Clear 33, Estimated GFR 24 L, Est GFR ( Amer) 30 L, Glucose 131 H, Calcium 8.5 07/16/22 06:16: POC Glucose 136 H 07/16/22 11:25: Vancomycin Trough 16.7 H 07/16/22 11:25: Sodium 137, Potassium 4.7, Chloride 108 H, Carbon Dioxide 21 L, Anion Gap 12.7, BUN 40 H, Creatinine 1.80 H, Estimated Creat Clear 37, Estimated GFR 28 L, Est GFR ( Amer) 33 L, Glucose 197 H D, Calcium 8.1 L 07/16/22 11:25: Blood Type O Positive, Antibody Screen Negative, Crossmatch (AHG) See Detail I & O for Labs for Last 24 Hours: Intake & Output 07/14/22 07/15/22 07/16/22 07/17/22 11:59 11:59 11:59 11:59 Intake Total 360 / 360 660 / 660 600 / 600 240 / 240 Output Total 1750 / 1750 2050 / 2050 2780 / 2780 0 / 0 Balance -1390 / -1390 -1390 / -1390 -2180 / -2180 240 / 240 Weight 196 lb 6.4 oz 198 lb 2 oz 186 lb 8 oz 186 lb 8 oz Microbiology Reports for the Last 24 Hours: Microbiology 07/10/22 13:10 Blood Blood Culture - Final NO GROWTH AFTER 5 DAYS 07/10/22 11:05 Blood Blood Culture - Final NO GROWTH AFTER 5 DAYS Comment:: Is alert. Talkative. Really weak. Heart rate regular, paced rhythm on monitor. Lungs with rhonchi but good air movement, on room air. Lymphedema unchanged. Assessment and Plan *Assessment and plan (1) Hyperkalemia: Status: Acute Category: Medical Code(s): E87.5 - Hyperkalemia (2) Cardiomyopathy: Status: Acute Qualifiers: Cardiomyopathy type: ischemic Qualified Code(s): I25.5 - Ischemic cardiomyopathy Category: Medical
[2022-07-16 16:26] LABS: POC Glucose,Bedside 220 (70-110)
[2022-07-16 16:26] LABS: POC Glucose,Bedside 240 (70-110)
[2022-07-16 19:03] LABS: Hematocrit 31.6 % (37.0-47.0)
[2022-07-16 19:04] LABS: Hemoglobin 10.6 g/dL (12.2-16.2)
[2022-07-16 21:34] LABS: POC Glucose,Bedside 155 (70-110)
[2022-07-17] VITALS: BP 170/68; PULSE 77; RESP 17; TEMP 36.6; O2SAT 94
[2022-07-17 04:00] VITALS: BP 159/66; PULSE 79; RESP 16; TEMP 36.7; O2SAT 96
[2022-07-17 05:00] VITALS: BMI 34.3
--- NOTE | 2022-07-17 05:46 | PC.NURSE ---
Pt required a lot of encouragement and coaching to take scheduled night medication. Pt was assisted from chair to bed and required maximum assistance. Pt has been sleeping majority of shift. Pt has had 1 small loose bm. No c/o voiced to staff. Daughter at bedside. Bed alarm on for pt safety. Call light within reach.
[2022-07-17 06:29] LABS: POC Glucose,Bedside 159 (70-110)
[2022-07-17 07:45] VITALS: BP 184/71; PULSE 72; RESP 16; TEMP 36.8; O2SAT 96
--- NOTE | 2022-07-17 07:49 | PC.NURSE ---
RN aware of elevated bp.
--- NOTE | 2022-07-17 08:12 | CT_ITS ---
FINAL REPORT TECHNIQUE: Axial CT images were performed through the head. Coronal reformatted images were submitted. This study was performed with techniques to keep radiation doses as low as reasonably achievable (ALARA). Individualized dose reduction techniques using automated exposure control or adjustment of mA and/or kV according to the patient's size were employed. CLINICAL HISTORY: lethargy, ams COMPARISON: March 2021 FINDINGS: There is mild to moderate atrophy with proportionate ventriculomegaly. There is mild decreased attenuation in the deep white matter. There is physiologic calcification in the basal ganglia. There is no evidence of hemorrhage. There is no mass or edema identified. There is no abnormal extra-axial fluid seen. There is minimal chronic sinusitis in the bilateral maxillary sinuses. IMPRESSION: Atrophy with changes of chronic microvascular ischemia. No acute intracranial process. Reviewed, Interpreted and Dictated by Sterling Olvera MD Transcribed by Ori Cartwright Authenticated and [facility]
--- NOTE | 2022-07-17 08:19 | EXP.ACUTE.PN ---
Subjective *Date: 07/17/22 *Time: 08:19 Interval history: Overnight patient has become very somnolent. She sat up in a chair for most of the day yesterday after receiving her unit of packed cells but her daughter reports that she is now unwilling to get up and is become somewhat uncommunicative. Medical Exam Vital signs and Labs for Last 24 Hours: Vital Signs Temp Pulse Pulse Resp BP BP Pulse Ox 07/17/22 07:45 98.2 F 72 16 184/71 H 96 07/17/22 04:00 98.1 F 79 16 159/66 H 96 07/17/22 00:00 98 F 77 17 170/68 H 94 L 07/16/22 20:00 80 07/16/22 19:51 98.2 F 82 20 100 07/16/22 17:50 98.6 F 72 20 177/70 H 100 07/16/22 16:50 98.6 F 65 18 182/67 H 100 07/16/22 15:20 98.6 F 70 18 161/63 H 100 07/16/22 16:00 70 07/16/22 15:05 98.9 F 76 20 173/72 H 100 07/16/22 14:50 98.6 F 80 20 176/62 H 100 07/16/22 12:00 69 07/16/22 14:35 98.9 F 77 18 175/70 H 100 07/16/22 14:30 98.6 F 70 20 175/59 H 100 07/16/22 14:25 98.9 F 71 18 176/62 H 100 07/16/22 14:20 99.1 F 78 20 168/59 H 100 07/16/22 14:00 99.1 F 81 20 187/69 H 100 07/16/22 11:42 98.6 F 85 20 185/72 H 100 Intake and Output 07/16/22 07/17/22 07/17/22 19:59 03:59 11:59 Intake Total 990 / 1090 100 / 1090 Output Total 1999 / 3700 1700 / 3700 Balance -1010 / -2610 100 / -2610 -1700 / -2610 Intake: Intake, Oral Amount 240 / 240 Intake, Total IV Amount 500 / 600 100 / 600 Cefepime HCl 2 gm In 0.9 % 200 / 300 100 / 300 Sodium Chloride 100 ml @ 200 mls/hr IV Q12H [facility] Rx#:[id number] Vancomycin/Water For Inj (Peg) 300 / 300 1.5 gm In 300 ml @ 150 mls/hr IV Q48H [facility] Rx#:[id number] Intake (Blood Product) Amt 250 / 250 Red Blood Cells Unit 250 / 250 [id number] Output: Output, Urine Amount 2000 / 3700 1700 / 3700 Other: Number of Unmeasured Voids 0 0 0 Weight 186 lb 8 oz 186 lb 8.001 oz Patient Weight 07/17/22 11:59 Weight 186 lb 8.001 oz Laboratory Results - last 24 hr 07/16/22 11:13: POC Glucose 240 H 07/16/22 11:25: Vancomycin Trough 16.7 H 07/16/22 11:25: Sodium 137, Potassium 4.7, Chloride 108 H, Carbon Dioxide 21 L, Anion Gap 12.7, BUN 40 H, Creatinine 1.80 H, Estimated Creat Clear 37, Estimated GFR 28 L, Est GFR ( Amer) 33 L, Glucose 197 H D, Calcium 8.1 L 07/16/22 11:25: Blood Type O Positive, Antibody Screen Negative, Crossmatch (AHG) See Detail 07/16/22 15:15: POC Glucose 220 H 07/16/22 18:12: Hgb 10.6 L D, Hct 31.6 L 07/16/22 21:27: POC Glucose 155 H 07/17/22 06:05: POC Glucose 159 H I & O for Labs for Last 24 Hours: Intake & Output 07/14/22 07/15/22 07/16/22 07/17/22 11:59 11:59 11:59 11:59 Intake Total 360 / 360 660 / 660 600 / 600 1090 / 1090 Output Total 1750 / 1750 2050 / 2050 2780 / 2780 3700 / 3700 Balance -1390 / -1390 -1390 / -1390 -2180 / -2180 -2610 / -2610 Weight 196 lb 6.4 oz 198 lb 2 oz 186 lb 8 oz 186 lb 8.001 oz Comment:: Patient is comfortable lying in bed, in no distress, requiring no supplemental oxygen. Her lungs have good air movement, heart rate regular. Pacemaker site looks good. Her extremities are unchanged. Abdomen soft nontender. Cranial nerves are symmetric. However, she is unresponsive to verbal stimuli, she will respond to a sternal rub but will not follow commands. She will open her eyes but will not engage in conversation. Assessment and Plan *Assessment and plan (1) Hyperkalemia: Status: Acute Category: Medical Code(s): E87.5 - Hyperkalemia (2) Cardiomyopathy: Status: Acute Qualifiers: Cardiomyopathy type: ischemic Qualified Code(s): I25.5 - Ischemic cardiomyopathy Category: Medical Code(s): I42.9 - Cardiomyopathy, unspecified (3) Anemia, chronic renal failure: Status: Acute Qualifiers: Chronic kidney disease stage: stag
[2022-07-17 09:21] LABS: Basophils # 0.1 K/mm3 (0-0.2); Basophils % 0.5 % (0.1-2.0); Eosinophils % 0.1 % (0.1-12.0); Hemoglobin 9.8 g/dL (12.2-16.2); Lymphocytes # 1.4 K/mm3 (0.7-4.5); Lymphocytes % 10.6 % (10-50); Mean Corpuscular HGB Conc 31.6 g/dL (31.8-35.4); Mean Corpuscular Hemoglobin 31.3 pg (27.0-31.2); Mean Corpuscular Volume 98.9 fl (81-99); Mean Platelet Volume 9.5 fl (7.4-10.4); Monocytes # 0.6 K/mm3 (0.1-1.0); Monocytes % 4.4 % (1.7-9.3); Neutrophils # 10.8 K/mm3 (1.8-7.8); Neutrophils % 84.3 % (37.0-80.0); Platelet Count 253 K/mm3 (142-424); Red Blood Count 3.14 M/mm3 (4.20-5.40); Red Cell Distribution Width 15.6 % (11.5-17.5); White Blood Count 12.8 K/mm3 (4.8-10.8)
[2022-07-17 09:36] LABS: Ammonia < 9 umol/L (9-30)
[2022-07-17 09:39] LABS: Chloride 105 mmol/L (98-107); Potassium 4.1 mmoL/L (3.5-5.1); Sodium 136 mmol/L (136-145)
[2022-07-17 09:41] LABS: Blood Urea Nitrogen 43 mg/dl (7-17); Creatinine Clearance Estimated 37 mL/min (50-200); Estimated Glomerular Filt Rate 28 ml/min (>60); GFR (African American) 33 ML/MIN (>60)
[2022-07-17 09:42] LABS: Alanine Aminotransferase 16 U/L (12-78); Albumin Level 2.8 g/dl (3.5-5.0); Alkaline Phosphatase 114 U/L (38-126); Anion Gap 12.1 mEq/L (5-15); Aspartate Amino Transferase 37 U/L (14-36); Bilirubin,Total 0.5 mg/dl (0.2-1.3); Carbon Dioxide 23 mmol/L (22.0-30.0); Globulin 2.8 g/dL (1.3-3.2); Glucose 170 mg/dl (74-100); Total Protein,Serum 5.6 g/dl (6.3-8.2)
[2022-07-17 10:14] LABS: Thyroid Stimulating Hormone 2.01 uIU/mL (0.465-4.68)
[2022-07-17 11:27] LABS: POC Glucose,Bedside 212 (70-110)
[2022-07-17 11:46] VITALS: BP 182/60; PULSE 71; RESP 18; TEMP 36.8; O2SAT 96
--- NOTE | 2022-07-17 15:55 | PC.NURSE ---
PT HAS BEEN VERY SOMNOLENT AND NOT COMMUNICATING THIS SHIFT. ALOT OF COACHING AND ENCOURAGMENT TO TAKE AM MEDS, CRUSHED MEDS AND PUT IN PUDDING, PT TOLERATED WELL. UP TO CHAIR FOR AROUND 2 HRS THIS AFTERNOON. PACEMAKER SITE LOOKS GOOD, FREE OF REDNESS / DRAINAGE. SOW CATH IN PLACE WITH ADEQUATE CLEAR YELLOW UOP. NEW IV STARTED IN LT WRIST, DC OF IV IN RT FA.
[2022-07-17 16:00] VITALS: BP 158/56; PULSE 85; RESP 16; TEMP 36.9; O2SAT 97
[2022-07-17 17:02] LABS: POC Glucose,Bedside 174 (70-110)
[2022-07-17 20:00] VITALS: BP 161/72; PULSE 86; RESP 16; TEMP 37; O2SAT 97
--- NOTE | 2022-07-17 20:59 | PC.NURSE ---
Pt was unable to be coached to take all medication in pudding this evening. Pt got only a partial dose of 2100 medication. Pt would stick out tongue when asked to open mouth and spit pudding/medication out multiple times when able to put in her mouth. Pt also blew in straw when asked to suck through the straw to take a drink. Daughter states she ate dinner well earlier tonight and was able to suck through a straw at that time.
[2022-07-17 21:37] LABS: POC Glucose,Bedside 290 (70-110)
[2022-07-18] VITALS: BP 161/65; PULSE 81; RESP 20; TEMP 37.2; O2SAT 97
[2022-07-18 04:00] VITALS: BP 162/82; PULSE 89; RESP 18; TEMP 37.3; O2SAT 96
[2022-07-18 04:26] VITALS: BMI 31.8
[2022-07-18 06:08] LABS: POC Glucose,Bedside 144 (70-110)
--- NOTE | 2022-07-18 06:33 | PC.NURSE ---
Pt has remained somnolent t/o shift. Pt will open eyes spontaneously but will not follow any commands and has been uncommunicative. An catheter in place draining clear yellow urine with sediment. Pt has had 1800ml UO. 3 moderate soft BMs this shift. Bilat lower lungs diminished. Tolerating RA well with sats in upper 90s. Daughter at bedside. Bed alarm on for pt safety. Call light within reach.
[2022-07-18 08:00] VITALS: BP 169/69; PULSE 86; RESP 22; TEMP 36.6; O2SAT 97
--- NOTE | 2022-07-18 08:03 | DIET.NUTRFU ---
Addendum entered by Emilia Briggs RD, NIRANJAN 07/18/22 13:55: Saw patient during meal rounds, consumed 100% milkshake and 100% mashed potatoes with white gravy on them. Addendum entered by Emilia Briggs RD, 07/18/22 10:40: Spoke to daughter today about lack of intake. Daughter was able to get 100% sherbert and mashed potatoes. She does not have teeth, on chopped diet but still having chewing issues with some foods. Does better with gravy on foods to moisten and add additional flavor. Currently on cardiac and gravy is considered high sodium, daughter is aware. Feels meal intake is more important at this time. They understand they need to cut back on sodium intake at home. She is diabetic and tries to watch sugar at home, insulin in place, will continue cardiac diet at this time. Prior to this patient was independent with her own ADL and fixed some of her own meals. Lives with daughter but home alone at times. Case mgt looking into possible placement for rehab at time of discharge. Daughter also reports she will not drink any supplements dislikes them all. Added a small vanilla milkshake with lunch today for extra calories. She drank her OJ and milk well this morning. Will continue to monitor meal intake. Original Note: RD reviewed meal intake, poor at 25%. Will add glucerna with trays to provide additional calories/protein. Reviewed meals and meds in place. Provider reports he felt she looked slightly better today
--- NOTE | 2022-07-18 08:48 | EXP.ACUTE.PN ---
Subjective *Date: 07/18/22 *Time: 08:48 Interval history: Patient remains somewhat lethargic. Will arouse for periods of time but then go back to sleep. Will not follow commands with PT or with nursing staff and in fact sometimes does the opposite. Her daughter was a little frustrated yesterday with some issues that she addressed with nursing spring up supervisor and I had a very long and pleasant talk with her this morning about ongoing issues. Medical Exam Vital signs and Labs for Last 24 Hours: Vital Signs Temp Pulse Resp BP Pulse Ox 07/18/22 04:00 99.1 F 89 18 162/82 H 96 07/18/22 00:00 97 07/18/22 00:00 99.0 F 81 20 161/65 H 97 07/17/22 20:00 98.6 F 86 16 161/72 H 97 07/17/22 16:00 98.4 F 85 16 158/56 H 97 07/17/22 11:46 98.2 F 71 18 182/60 H 96 Intake and Output 07/17/22 07/18/22 07/18/22 19:59 03:59 11:59 Intake Total 120 / 120 Output Total 2400 / 4200 1200 / 4200 600 / 4200 Balance -2280 / -4080 -1200 / -4080 -600 / -4080 Intake: Intake, Oral Amount 120 / 120 Output: Output, Urine Amount 2400 / 4200 1200 / 4200 600 / 4200 Other: Number of Unmeasured Voids 0 0 0 Number of Bowel Movements 1 1 Weight 172 lb 14.4 oz Patient Weight 07/18/22 11:59 Weight 172 lb 14.4 oz Laboratory Results - last 24 hr 07/17/22 09:00: Sodium 136, Potassium 4.1, Chloride 105, Carbon Dioxide 23, Anion Gap 12.1, BUN 43 H, Creatinine 1.80 H, Estimated Creat Clear 37, Estimated GFR 28 L, Est GFR ( Amer) 33 L, Glucose 170 H, Calcium 9.0, Total Bilirubin 0.5, AST 37 H, ALT 16, Alkaline Phosphatase 114, Total Protein 5.6 L D, Albumin 2.8 L, Globulin 2.8, Albumin/Globulin Ratio 1.0 L, TSH 2.01 07/17/22 09:00: WBC 12.8 H, RBC 3.14 L D, Hgb 9.8 L, Hct 31.0 L, MCV 98.9, MCH 31.3 H, MCHC 31.6 L, RDW 15.6, Plt Count 253, MPV 9.5, Neut % (Auto) 84.3 H, Lymph % (Auto) 10.6, [place] % (Auto) 4.4, Eos % (Auto) 0.1, Baso % (Auto) 0.5, Neut # (Auto) 10.8 H, Lymph # (Auto) 1.4, [place] # (Auto) 0.6, Eos # (Auto) 0.0, Baso # (Auto) 0.1 07/17/22 09:00: Ammonia < 9 L 07/17/22 11:19: POC Glucose 212 H 07/17/22 16:25: POC Glucose 174 H 07/17/22 19:34: POC Glucose 290 H 07/18/22 05:52: POC Glucose 144 H I & O for Labs for Last 24 Hours: Intake & Output 07/15/22 07/16/22 07/17/22 07/18/22 11:59 11:59 11:59 11:59 Intake Total 660 / 660 600 / 600 1090 / 1090 120 / 120 Output Total 0 / 0 2780 / 2780 3700 / 3700 4200 / 4200 Balance -1390 / -1390 -2180 / -2180 -2610 / -2610 -4080 / -4080 Weight 198 lb 2 oz 186 lb 8 oz 186 lb 8.001 oz 172 lb 14.4 oz Comment:: Maker implantation site looks good. Lungs have good air movement. Abdomen is soft. Heart rate is regular. Extremity edema is about the same, An catheter draining clear yellow urine. She will open her eyes and respond to voice and will turn her head to look at me. She smiles. She is nonverbal this morning. Assessment and Plan *Assessment and plan (1) Hyperkalemia: Status: Acute Category: Medical Code(s): E87.5 - Hyperkalemia (2) Cardiomyopathy: Status: Acute Qualifiers: Cardiomyopathy type: ischemic Qualified Code(s): I25.5 - Ischemic cardiomyopathy Category: Medical Code(s): I42.9 - Cardiomyopathy, unspecified (3) Anemia, chronic renal failure: Status: Acute Qualifiers: Chronic kidney disease stage: stage 4 (severe) Qualified Code(s): N18.4 - Chronic kidney disease, stage 4 (severe); D63.1 - Anemia in chronic kidney disease Category: Medical Code(s): N18.9 - Chronic kidney disease, unspecified; D63.1 - Anemia in chronic kidney disease (4) CAP (community acquired pneumonia): Status: Acute Category: Medical Code(s): J18.9 - Pneumonia, unspecified organism (5) Altered mental status: Status: Acute Category: Medical Code(s): R41.82 - Altered mental status, unspecified Plan Mental status changes: I had
[2022-07-18 08:59] LABS: Blood Urea Nitrogen 42 mg/dl (7-17); Calcium 8.8 mg/dl (8.4-10.2); Carbon Dioxide 22 mmol/L (22.0-30.0); Chloride 105 mmol/L (98-107); Creatinine Clearance Estimated 33 mL/min (50-200); Estimated Glomerular Filt Rate 26 ml/min (>60); GFR (African American) 31 ML/MIN (>60); Glucose 203 mg/dl (74-100); Magnesium 1.6 mg/dl (1.6-2.3); Sodium 138 mmol/L (136-145)
[2022-07-18 09:49] LABS: Vitamin B12 > 1000 pg/mL (239-931)
--- NOTE | 2022-07-18 10:48 | PC.NURSE ---
when checked on pt at beginning of shift, pt was awake and gave a short verbal responded. pt fell back to sleep and was unable to take all of am meds. daughter at bedside.
[2022-07-18 11:04] LABS: Basophils # 0.1 K/mm3 (0-0.2); Basophils % 0.5 % (0.1-2.0); Eosinophils % 0.2 % (0.1-12.0); Hematocrit 35.8 % (37.0-47.0); Lymphocytes # 1.4 K/mm3 (0.7-4.5); Lymphocytes % 9.6 % (10-50); Mean Corpuscular HGB Conc 31.3 g/dL (31.8-35.4); Mean Corpuscular Hemoglobin 30.5 pg (27.0-31.2); Mean Corpuscular Volume 97.4 fl (81-99); Mean Platelet Volume 9.3 fl (7.4-10.4); Monocytes # 0.6 K/mm3 (0.1-1.0); Monocytes % 4.3 % (1.7-9.3); Neutrophils # 12.3 K/mm3 (1.8-7.8); Neutrophils % 85.4 % (37.0-80.0); Platelet Count 266 K/mm3 (142-424); Red Blood Count 3.68 M/mm3 (4.20-5.40); Red Cell Distribution Width 14.8 % (11.5-17.5); White Blood Count 14.4 K/mm3 (4.8-10.8)
[2022-07-18 11:47] LABS: POC Glucose,Bedside 277 (70-110)
[2022-07-18 11:52] LABS: Hemoglobin 11.3 g/dL (12.2-16.2)
[2022-07-18 11:53] LABS: MANUAL DIFFERENTIAL MANUAL DIFFERENTIAL (MANUAL DIFF)
[2022-07-18 12:00] VITALS: BP 165/68; PULSE 87; RESP 22; TEMP 37; O2SAT 97
[2022-07-18 14:22] LABS: Anisocytosis 1+; Hypochromasia 1+; Lymphocytes % 13 % (10-50); Monocytes % 3 % (2-9); Neutrophils % 84 % (42-76); Platelet Estimate Normal; Total Cells Counted 100
[2022-07-18 16:00] VITALS: BP 188/74; PULSE 94; RESP 22; TEMP 36.9; O2SAT 99
[2022-07-18 16:46] LABS: POC Glucose,Bedside 324 (70-110)
--- NOTE | 2022-07-18 18:34 | PC.NURSE ---
per lacy, order amlodipine 5mg po once for increase b/p pt has done very well this shift. been up to chair and awake majority of day, more alert. shakes head yes and no when asked a question, pt has gave one word verbal responses. lungs clear with adequate airflow. pt has had 3 loose bm this shift, stool specimen collected and sent to lab. since becoming more alert pt has swallowed po meds whole, tolerating well and following commands. family at bedside. no questions or concerns at this time.
--- NOTE | 2022-07-18 19:04 | PC.NURSE ---
tech note; notified nurse of high blood pressure at 1600.
[2022-07-18 19:45] VITALS: BP 159/59; PULSE 95; RESP 18; TEMP 37.2; O2SAT 95
[2022-07-19] VITALS: BP 160/69; PULSE 79; RESP 20; TEMP 37.1
[2022-07-19 04:00] VITALS: BP 157/59; PULSE 87; RESP 18; TEMP 36.8; O2SAT 98
[2022-07-19 05:00] VITALS: BMI 31.8
[2022-07-19 08:00] VITALS: BP 155/74; PULSE 92; RESP 22; TEMP 36.6; O2SAT 96
--- NOTE | 2022-07-19 09:27 | EXP.ACUTE.PN ---
Subjective *Date: 07/19/22 *Time: 09:27 Interval history: Over the past 24 hours patient has made a remarkable improvement. Alert, oriented x2, reoriented very quickly to date. Recognizes me this morning. Is eating breakfast vigorously. Main complaint today is some thrush symptoms as well as ongoing issues with leg pain. Her gabapentin was discontinued because of her mental status changes and confusion. Medical Exam Vital signs and Labs for Last 24 Hours: Vital Signs Temp Pulse Resp BP BP Pulse Ox 07/19/22 04:00 98.3 F 87 18 157/59 H 98 07/19/22 00:00 98.7 F 79 20 160/69 H 07/18/22 19:45 98.9 F 95 H 18 159/59 H 95 07/18/22 16:00 98.4 F 94 H 22 188/74 H 99 07/18/22 12:00 98.6 F 87 22 165/68 H 97 Intake and Output 07/18/22 07/19/22 07/19/22 19:59 03:59 11:59 Intake Total 840 / 840 Output Total 1050 / 1600 550 / 1600 Balance -210 / -760 -550 / -760 Intake: Intake, Oral Amount 840 / 840 Output: Output, Urine Amount 1050 / 1250 200 / 1250 Output, Urine Amount (Catheter) 350 / 350 An 350 / 350 Other: Number of Unmeasured Voids 0 1 Weight 173 lb 6 oz Patient Weight 07/19/22 11:59 Weight 173 lb 6 oz Laboratory Results - last 24 hr 07/18/22 08:30: WBC 14.4 H, RBC 3.68 L, Hgb 11.3 L D, Hct 35.8 L, MCV 97.4, MCH 30.5, MCHC 31.3 L, RDW 14.8, Plt Count 266, MPV 9.3, Neut % (Auto) 85.4 H, Lymph % (Auto) 9.6 L, [place] % (Auto) 4.3, Eos % (Auto) 0.2, Baso % (Auto) 0.5, Neut # (Auto) 12.3 H, Lymph # (Auto) 1.4, [place] # (Auto) 0.6, Eos # (Auto) 0.0, Baso # (Auto) 0.1, Total Counted 100, Neutrophils % (Manual) 84 H, Lymphocytes % (Manual) 13, Monocytes % (Manual) 3, Platelet Estimate Normal, Hypochromasia 1+, Anisocytosis 1+ 07/18/22 08:30: Vitamin B12 > 1000 H 07/18/22 11:39: POC Glucose 277 H 07/18/22 16:29: POC Glucose 324 H* I & O for Labs for Last 24 Hours: Intake & Output 07/16/22 07/17/22 07/18/22 07/19/22 11:59 11:59 11:59 11:59 Intake Total 600 / 600 1090 / 1090 240 / 240 840 / 840 Output Total 2780 / 2780 3700 / 3700 4200 / 4200 1600 / 1600 Balance -2180 / -2180 -2610 / -2610 -3960 / -3960 -760 / -760 Weight 186 lb 8 oz 186 lb 8.001 oz 172 lb 14.4 oz 173 lb 6 oz Comment:: Alert, oriented x2 as noted above. Eating vigorously. Heart rate regular. Pacemaker site looks good. Lungs clear, abdomen soft, some hyperesthesia in her feet. Edema as previously noted Assessment and Plan *Assessment and plan (1) Hyperkalemia: Status: Acute Category: Medical Code(s): E87.5 - Hyperkalemia (2) Cardiomyopathy: Status: Acute Qualifiers: Cardiomyopathy type: ischemic Qualified Code(s): I25.5 - Ischemic cardiomyopathy Category: Medical Code(s): I42.9 - Cardiomyopathy, unspecified (3) Anemia, chronic renal failure: Status: Acute Qualifiers: Chronic kidney disease stage: stage 4 (severe) Qualified Code(s): N18.4 - Chronic kidney disease, stage 4 (severe); D63.1 - Anemia in chronic kidney disease Category: Medical Code(s): N18.9 - Chronic kidney disease, unspecified; D63.1 - Anemia in chronic kidney disease (4) CAP (community acquired pneumonia): Status: Acute Category: Medical Code(s): J18.9 - Pneumonia, unspecified organism (5) Altered mental status: Status: Acute Category: Medical Code(s): R41.82 - Altered mental status, unspecified Plan Mental status changes: Overall nicely improved. I will cancel CT scan of head for today. Echocardiogram shows dramatic improvement in EF that was done previously. I wonder about the accuracy of the prepacemaker reading but will reassess. Treat mild oral thrush complaints with nystatin. Restart gabapentin 100 twice daily cautiously. If patient continues to be alert will discuss transfer to [place] tomorrow for ongoing skilled care
[2022-07-19 11:43] LABS: POC Glucose,Bedside 245 (70-110)
[2022-07-19 11:43] LABS: POC Glucose,Bedside 251 (70-110)
[2022-07-19 11:43] LABS: POC Glucose,Bedside 141 (70-110)
[2022-07-19 12:00] VITALS: BP 147/59; PULSE 79; RESP 22; TEMP 36.6; O2SAT 97
[2022-07-19 16:00] VITALS: BP 143/57; PULSE 82; RESP 20; TEMP 36.9; O2SAT 96
[2022-07-19 17:11] LABS: POC Glucose,Bedside 205 (70-110)
--- NOTE | 2022-07-19 17:25 | PC.NURSE ---
Patient alert and oriented for shift. VS stable and pt on room air. Patient able to ambulate to chair with one assist and gait belt. One bowel movement noted. Lungs diminished on ascul;tation. No other complaints noted.
[2022-07-19 20:00] VITALS: BP 176/71; PULSE 90; RESP 20; TEMP 36.9; O2SAT 98
[2022-07-19 20:57] LABS: POC Glucose,Bedside 230 (70-110)
[2022-07-20] VITALS: BP 151/60; PULSE 70; RESP 18; TEMP 36.7; O2SAT 97
[2022-07-20 04:00] VITALS: BP 146/58; PULSE 70; RESP 17; TEMP 36.8; O2SAT 92
--- NOTE | 2022-07-20 04:45 | PC.NURSE ---
No acute changes since previous assessment. Pt has been pleasant throughout the shift, talking to family and staff. Voiding per [place] cath. Pt remains on RA with O2 sat >95%. Pt c/o of pain once, medicated per OCT w/ favorable results. Pt has been resting well. Call light in reach. Bed alarm on for safety. Family at bedside.
[2022-07-20 05:00] VITALS: BMI 31.9
[2022-07-20 05:23] LABS: POC Glucose,Bedside 116 (70-110)
[2022-07-20 07:44] VITALS: BP 176/61; PULSE 70; RESP 16; TEMP 36.7; O2SAT 96
[2022-07-20 08:33] LABS: Basophils % 0.5 % (0.1-2.0); Eosinophils % 0.4 % (0.1-12.0); Hematocrit 30.7 % (37.0-47.0); Hemoglobin 10.1 g/dL (12.2-16.2); Lymphocytes # 1.7 K/mm3 (0.7-4.5); Mean Corpuscular Hemoglobin 31.4 pg (27.0-31.2); Mean Corpuscular Volume 95.1 fl (81-99); Mean Platelet Volume 8.8 fl (7.4-10.4); Monocytes # 0.6 K/mm3 (0.1-1.0); Monocytes % 6.1 % (1.7-9.3); Neutrophils # 7.2 K/mm3 (1.8-7.8); Platelet Count 222 K/mm3 (142-424); Red Blood Count 3.23 M/mm3 (4.20-5.40); White Blood Count 9.6 K/mm3 (4.8-10.8)
[2022-07-20 08:58] LABS: Chloride 106 mmol/L (98-107)
[2022-07-20 08:59] LABS: Potassium 4.4 mmoL/L (3.5-5.1); Sodium 135 mmol/L (136-145)
[2022-07-20 09:01] LABS: Blood Urea Nitrogen 46 mg/dl (7-17); Creatinine Clearance Estimated 28 mL/min (50-200); Estimated Glomerular Filt Rate 22 ml/min (>60); GFR (African American) 26 ML/MIN (>60)
[2022-07-20 09:02] LABS: Calcium 8.3 mg/dl (8.4-10.2); Glucose 165 mg/dl (74-100)
--- NOTE | 2022-07-20 09:28 | EXP.DC.SUM ---
General Admission date:: 07/08/22 Discharge date: 07/20/22 HPI HPI HPI: 71-year-old white female with multiple medical problems including congestive heart failure, diabetes, diabetic neuropathy, recent fall with leg fracture, morbid obesity, who presented to the emergency department late last night with worsening respiratory symptoms of congestion, fever and cough over the past week. She felt like she could not breathe well last night and instructed her family to take her to the hospital. When she came to the hospital she was in respiratory distress, acidotic and tachypneic. Hypoxia was noted. She was placed on BiPAP but after 30 minutes of BiPAP was worsening and was electively intubated. Transferred to intensive care unit. Through the night she had an episode of hypotension, tachycardia and hypoxia on the ventilator. Treated with fluids, repeat labs showed markedly elevated troponin levels. She is stabilized since that time and is evaluated today in the intensive care unit intubated and sedated. Cardiology and pulmonary consultations have been obtained and reviewed. Hospital Course Hospital Course Hospital Course: Patient was admitted, found to have severe sepsis, severe pneumonia, was intubated for 2 days. Able to be extubated, broad-spectrum IV antibiotics were given. Cultures from sputum showed a wide variety of yaa on gram stain but nothing definitive grew out. Patient completed 10 days of IV antibiotics in the hospital with cefepime and vancomycin. Patient was found to have fairly severe CHF, positive troponins, cardiology became involved and recommended placement of a defibrillator/pacemaker device. This was done without complications. The patient did have some significant depressed mental status around the time of this implantation and work-up included CT scan of head, multiple lab tests and observation. She very slowly improved but by 48 hours before discharge was back to her normal self mentation carlos. My opinion is that it was a combination of her baseline gabapentin/tramadol in combination with sepsis stress and anesthetics from the procedure that took a while to washout. Regardless, she improved very nicely. Was found to be globally weak, and PT recommended that she pursue skilled care at [place]. After several misgivings on the part of the patient she agreed and she will be transferred to [place] today. Will discharge her today, An catheter will be discontinued. Please note she will need PT/OT/speech therapy/dietitian evaluation. Her leg edema is vastly improved over baseline and I will actually hold her diuretics until Thursday when we will get another BMP and CBC, please order the CBC and BMP for 07/22/2022. She will be on gabapentin for pain twice daily, will hold her tramadol given her recent mental status change. Echocardiogram that was repeated in the context of her mental status change that was read by [facility] showed dramatically improved ejection fraction from admission. I will actually see if I can get a combination reading from [facility] about the 2 different echocardiograms given the vastly different readings. Follow-up will be per our long-term rounds at [place]. Overall prognosis is good. Exam Data for Last 24 hours Vital signs and Labs for Last 24 Hours: Temp Pulse Resp BP Pulse Ox FiO2 98.1 F 70 16 176/61 H 96 100 07/20/22 07:44 07/20/22 07:44 07/20/22 07:44 07/20/22 07:44 07/20/22 07:44 07/11/22 22:00 Laboratory Results - last 24 hr 07/18/22 20:50: POC Glucose 245 H 07/19/22 06:17: POC Glucose 141 H 07/19/22 11:22: POC Glucose 251 H 07/19/22 16:30: POC Glucose 205 H 07/19/22 20:14: POC Glucose 230 H 07/20/22 05:15: POC Glucose 116 H 07/20/22 08:26: WBC 9.6 D, RBC 3.23 L, Hgb 10.1 L, Hct 30.7 L, MCV 95.1, MCH 31.4 H, MCHC 33.0, RDW 15.0, Plt Count 222, MPV 8.8, Neut % (Auto) 75.0, Lymph % (Auto) 18.0, [place] % (Auto) 6.1, Eos % (Auto) 0.4, Baso % (Auto) 0.5, Neut
[2022-07-20 09:48] LABS: Anion Gap 11.4 mEq/L (5-15); Carbon Dioxide 22 mmol/L (22.0-30.0)
--- NOTE | 2022-07-20 10:47 | PC.NURSE ---
ATTEMPTED TO CALL REPORT TO [facility] FOR PATIENT TRANSFER. SPOKE WITH SULEMAN AT THAT FACILITY WHO TOLD THIS RN THAT THEY WERE TOLD PT WOULD NOT BE READY FOR D/C THIS WEEKEND AND THAT THEY WERE TO RE-EVALUATE STATUS ON THURSDAY. MD FINLEY WAS MADE AWARE VIA TELEPHONE. UPDATED PT INFORMATION HAS BEEN FAXED TO [facility] AND D/C ORDER HAS BEEN ENTERED BY . D/C PACKET HAS BEEN PRINTED. BONE CHAR PULLER ALSO MADE AWARE OF SITUATION.
[2022-07-20 10:49] VITALS: BP 161/61; PULSE 80; RESP 17; TEMP 37.1; O2SAT 97
[2022-07-20 15:01] VITALS: BP 174/75; PULSE 91; RESP 17; TEMP 36.9; O2SAT 97
[2022-07-20 16:46] LABS: POC Glucose,Bedside 293 (70-110)
[2022-07-20 16:58] LABS: POC Glucose,Bedside 213 (70-110)
--- NOTE | 2022-07-20 16:58 | PC.NURSE ---
bingham was removed today, she has been able to void in the restroom with standby assist and use of a walker. has not required o2 support.
[2022-07-20 20:00] VITALS: BP 173/64; PULSE 73; RESP 18; TEMP 36.8; O2SAT 97
[2022-07-21] VITALS: BP 187/69; PULSE 71; RESP 18; TEMP 36.9; O2SAT 95
[2022-07-21 04:00] VITALS: BP 157/56; PULSE 64; RESP 17; O2SAT 94
[2022-07-21 05:00] VITALS: BMI 31.8
[2022-07-21 08:33] VITALS: BP 157/74; PULSE 70; RESP 21; TEMP 36.9; O2SAT 98
[2022-07-21 17:58] LABS: POC Glucose,Bedside 220 (70-110)
[2022-07-22 00:03] LABS: POC Glucose,Bedside 128 (70-110)
[2022-07-22 00:03] LABS: POC Glucose,Bedside 197 (70-110)
--- NOTE | 2022-07-22 15:48 | CARE MANAGER ---
Spoke with nurse at [place], patient is doing well and has no issues at this time.
== END 2022-07-21 15:21 | DRG 853 ==
LOC: ER 21:04 → 2ND 21:47
PROVIDERS: Emergency Medicine; Internal Medicine; Internal Medicine Pulmonary Disease; Nurse Practitioner Acute Care; Admitting Provider Family Medicine; Emergency Provider Emergency Medicine; PCP Internal Medicine Adolescent Medicine; Visit Provider Internal Medicine Adolescent Medicine
PROC: 0JH609Z Insertion of Cardiac Resynchronization Defibrillator Pulse Generator into Chest Subcutaneous Tissue and Fascia, Open Approach (ICD-10-PCS; CPT 33249; principal; 2022-07-14 13:00)
DX: I50.21 Acute systolic (congestive) heart failure; J18.9 Pneumonia, unspecified organism; J96.02 Acute respiratory failure with hypercapnia; I13.0 Hypertensive heart and chronic kidney disease with heart failure and stage 1 through stage 4 chronic kidney disease, or unspecified chronic kidney disease; N18.4 Chronic kidney disease, stage 4 (severe); N17.9 Acute kidney failure, unspecified; N39.0 Urinary tract infection, site not specified; A41.9 Sepsis, unspecified organism; B37.0 Candidal stomatitis; R65.20 Severe sepsis without septic shock; I25.5 Ischemic cardiomyopathy; E87.5 Hyperkalemia; R29.6 Repeated falls; I25.2 Old myocardial infarction; Z79.4 Long term (current) use of insulin; Z79.02 Long term (current) use of antithrombotics/antiplatelets; E11.22 Type 2 diabetes mellitus with diabetic chronic kidney disease; I89.0 Lymphedema, not elsewhere classified; Z79.899 Other long term (current) drug therapy; I44.7 Left bundle-branch block, unspecified; Z95.1 Presence of aortocoronary bypass graft
CPT/HCPCS: 31500; 94002; 33225; 33249; 36415; 51702; 70450; 71045; 80048; 80053; 80202; 81001; 82009; 82140; 82607; 82803; 82962; 83605; 83735; 83880; 84145; 84443; 84484; 85007; 85014; 85018; 85025; 85730; 86850; 87040; 87070; 87086; 87088; 87186; 87205; 92526; 92610; 93005; 93306; 94003; 94640; 97110; 97161; 97163; 97530; 99291; C1769; C1882; C1895; C1898; C1900; C9803; J0330; J1956; J2704; P9016; Q9967; U0003; U0005

== ENCOUNTER → 2022-07-22 16:27 | Outpatient (REF) | payer MEDICARE, SELFPAY ==
[2022-07-22 17:02] LABS: Basophils % 0.5 % (0.1-2.0); Eosinophils % 0.3 % (0.1-12.0); Hematocrit 28.4 % (37.0-47.0); Hemoglobin 9.3 g/dL (12.2-16.2); Lymphocytes # 1.7 K/mm3 (0.7-4.5); Lymphocytes % 18.9 % (10-50); Mean Corpuscular HGB Conc 32.8 g/dL (31.8-35.4); Mean Corpuscular Hemoglobin 31.7 pg (27.0-31.2); Mean Corpuscular Volume 96.6 fl (81-99); Mean Platelet Volume 9.6 fl (7.4-10.4); Monocytes # 0.7 K/mm3 (0.1-1.0); Monocytes % 7.2 % (1.7-9.3); Neutrophils # 6.7 K/mm3 (1.8-7.8); Neutrophils % 73.2 % (37.0-80.0); Platelet Count 233 K/mm3 (142-424); Red Blood Count 2.94 M/mm3 (4.20-5.40); Red Cell Distribution Width 14.6 % (11.5-17.5); White Blood Count 9.1 K/mm3 (4.8-10.8)
[2022-07-22 17:56] LABS: Anion Gap 14.4 mEq/L (5-15); Blood Urea Nitrogen 51 mg/dl (7-17); Carbon Dioxide 24 mmol/L (22.0-30.0); Chloride 102 mmol/L (98-107); Estimated Glomerular Filt Rate 19 ml/min (>60); GFR (African American) 23 ML/MIN (>60); Glucose 211 mg/dl (74-100); Potassium 4.4 mmoL/L (3.5-5.1); Sodium 136 mmol/L (136-145)
== END ==
LOC: LAB.DROPOF 16:27
PROVIDERS: Visit Provider Internal Medicine Adolescent Medicine
DX: I50.20 Unspecified systolic (congestive) heart failure (principal)
CPT/HCPCS: 80048; 80053; 85025

== ENCOUNTER → 2022-08-18 11:02 | Outpatient (CLI) | payer MEDICARE, SELFPAY ==
[2022-08-18 11:30] LABS: Basophils % 0.6 % (0.1-2.0); Eosinophils % 0.5 % (0.1-12.0); Hemoglobin 9.9 g/dL (12.2-16.2); Lymphocytes # 1.4 K/mm3 (0.7-4.5); Mean Corpuscular HGB Conc 32.9 g/dL (31.8-35.4); Mean Corpuscular Hemoglobin 31.6 pg (27.0-31.2); Mean Corpuscular Volume 95.9 fl (81-99); Mean Platelet Volume 8.9 fl (7.4-10.4); Monocytes # 0.6 K/mm3 (0.1-1.0); Monocytes % 10.6 % (1.7-9.3); Neutrophils # 3.9 K/mm3 (1.8-7.8); Neutrophils % 65.4 % (37.0-80.0); Platelet Count 170 K/mm3 (142-424); Red Blood Count 3.13 M/mm3 (4.20-5.40); Red Cell Distribution Width 14.6 % (11.5-17.5)
[2022-08-18 12:33] LABS: Chloride 107 mmol/L (98-107)
[2022-08-18 12:34] LABS: Potassium 4.8 mmoL/L (3.5-5.1); Sodium 139 mmol/L (136-145)
[2022-08-18 12:37] LABS: Anion Gap 8.8 mEq/L (5-15); Blood Urea Nitrogen 59 mg/dl (7-17); Calcium 8.5 mg/dl (8.4-10.2); Carbon Dioxide 28 mmol/L (22.0-30.0); Estimated Glomerular Filt Rate 15 ml/min (>60); GFR (African American) 18 ML/MIN (>60); Glucose 113 mg/dl (74-100)
== END ==
PROVIDERS: PCP Internal Medicine Adolescent Medicine; Visit Provider Nurse Practitioner
DX: E11.40 Type 2 diabetes mellitus with diabetic neuropathy, unspecified (principal); E66.9 Obesity, unspecified; E78.2 Mixed hyperlipidemia; I10 Essential (primary) hypertension; I25.10 Atherosclerotic heart disease of native coronary artery without angina pectoris; I25.5 Ischemic cardiomyopathy; I50.20 Unspecified systolic (congestive) heart failure; I73.9 Peripheral vascular disease, unspecified; R07.89 Other chest pain; Z79.4 Long term (current) use of insulin
CPT/HCPCS: 36415; 80048; 85025

== ENCOUNTER → 2022-09-20 10:54 | Outpatient (CLI) | payer MEDICARE, SELFPAY ==
[2022-09-20 11:53] LABS: Basophils % 0.5 % (0.1-2.0); Eosinophils % 0.6 % (0.1-12.0); Hemoglobin 9.5 g/dL (12.2-16.2); Lymphocytes # 1.3 K/mm3 (0.7-4.5); Lymphocytes % 21.1 % (10-50); Mean Corpuscular Hemoglobin 31.9 pg (27.0-31.2); Mean Corpuscular Volume 96.9 fl (81-99); Mean Platelet Volume 8.4 fl (7.4-10.4); Monocytes # 0.5 K/mm3 (0.1-1.0); Monocytes % 7.8 % (1.7-9.3); Neutrophils # 4.3 K/mm3 (1.8-7.8); Platelet Count 174 K/mm3 (142-424); Red Blood Count 2.99 M/mm3 (4.20-5.40); Red Cell Distribution Width 14.6 % (11.5-17.5); White Blood Count 6.2 K/mm3 (4.8-10.8)
[2022-09-20 12:23] LABS: Alanine Aminotransferase 15 U/L (12-78); Albumin Level 3.2 g/dl (3.5-5.0); Albumin/Globulin Ratio 1.4 (1.1-1.8); Alkaline Phosphatase 88 U/L (38-126); Anion Gap 8.7 mEq/L (5-15); Aspartate Amino Transferase 25 U/L (14-36); Bilirubin,Total 0.9 mg/dl (0.2-1.3); Blood Urea Nitrogen 24 mg/dl (7-17); Calcium 8.4 mg/dl (8.4-10.2); Carbon Dioxide 24 mmol/L (22.0-30.0); Chloride 107 mmol/L (98-107); Estimated Glomerular Filt Rate 32 ml/min (>60); GFR (African American) 38 ML/MIN (>60); Globulin 2.3 g/dL (1.3-3.2); Glucose 146 mg/dl (74-100); Potassium 3.7 mmoL/L (3.5-5.1); Sodium 136 mmol/L (136-145); Total Protein,Serum 5.5 g/dl (6.3-8.2)
[2022-09-20 12:55] LABS: Thyroid Stimulating Hormone 3.27 uIU/mL (0.465-4.68)
[2022-09-20 13:03] LABS: Hemoglobin A1C 5.7 % (4.0-6.0)
[2022-09-20 15:58] LABS: Adenovirus F 40/41, stool Not Detected (NotDetected); Astrovirus Not Detected (NotDetected); Campylobacter Not Detected (NotDetected); Clostridium Difficile A/B, PCR Not Detected (NotDetected); Cryptosporidium Not Detected (NotDetected); Cyclospora Cayetanesis Not Detected (NotDetected); Entamoeba histolytica Not Detected (NotDetected); Enteroaggregative E coli Not Detected (NotDetected); Enteropathogenic E coli Not Detected (NotDetected); Enterotoxigenic E coli Not Detected (NotDetected); Giardia lamblia Not Detected (NotDetected); Norovirus Not Detected (NotDetected); Plesimonas Shigalloides, PCR Not Detected (NotDetected); Rotavirus A Not Detected (NotDetected); Salmonella, PCR Not Detected (NotDetected); Sapovirus Not Detected (NotDetected); Shiga-like toxin E coli Not Detected (NotDetected); Shigella Enterovasive E coli Not Detected (NotDetected); Vibrio Cholerae Not Detected (NotDetected); Vibrio, PCR Not Detected (NotDetected); Yersinia Entercolitica, PCR Not Detected (NotDetected)
== END ==
PROVIDERS: PCP Internal Medicine Adolescent Medicine; Visit Provider Internal Medicine Adolescent Medicine
DX: R30.0 Dysuria (principal); E11.9 Type 2 diabetes mellitus without complications; N30.91 Cystitis, unspecified with hematuria; R19.7 Diarrhea, unspecified; I25.10 Atherosclerotic heart disease of native coronary artery without angina pectoris; B96.1 Klebsiella pneumoniae [K. pneumoniae] as the cause of diseases classified elsewhere; Z79.4 Long term (current) use of insulin
CPT/HCPCS: 36415; 80053; 83036; 84443; 85025; 87086; 87088; 87186; 87506

== ENCOUNTER 2023-06-25 18:19 | Observation (INO) | payer MEDICARE, SELFPAY ==
[2023-06-25] VITALS (10 sets, daily range): BP systolic 198–208; BP diastolic 70–96; PULSE 69–888; RESP 14–24; TEMP 36.9; O2SAT 96–99; BMI 34.5; BMI 33.3
--- NOTE | 2023-06-25 18:18 | ECG_ITS ---
APPROVED REPORT Exam: Resting ECG HR:93 bpm ECG Measurements Heart Rate 93 AXES PA 163 P 58 QRSd 156 QRS 93 QT 427 T -55 QTc 478 Conclusion ELECTRONIC VENTRICULAR PACEMAKER ABNORMAL RHYTHM ECG UNCONFIRMED REPORT Electronically signed by : Royer Parrish MD 06/26/2023 17:05:55
--- NOTE | 2023-06-25 18:30 | PC.NURSE ---
Unable to obtain peripheral IV. Labs sent to lab. notified; attempting US IV.
--- NOTE | 2023-06-25 18:53 | PC.NURSE ---
Dr. Jung at BS for pt eval
--- NOTE | 2023-06-25 19:04 | PC.NURSE ---
Dr. Jung at attempting to obtain IV via u/s
--- NOTE | 2023-06-25 19:08 | XR_ITS ---
PROCEDURE INFORMATION: Exam: XR Chest Exam date and time: 06/25/2023 8:23 PM Age: 72 years old Clinical indication: Pain; Chest pressure; Additional info: Chest pain TECHNIQUE: Imaging protocol: Radiologic exam of the chest. Views: 1 view. COMPARISON: CR XR CHEST PORTABLE 07/16/2022 10:08 AM FINDINGS: Tubes, catheters and devices: A 2 lead internal cardiac device implanted at the left chest with leads extending to the right heart. Multiple sternal cerclage wires overlie the sternum. Lungs: Pleuroparenchymal scarring of the lung bases with subsegmental atelectasis is present without consolidations or pleural effusions that project above the diaphragm. Pleural spaces: See Lungs finding. Heart/Mediastinum: Unremarkable. No cardiomegaly. Bones/joints: Unremarkable. IMPRESSION: Pleuroparenchymal scarring of the lung bases with subsegmental atelectasis is present without consolidations or pleural effusions that project above the diaphragm.
--- NOTE | 2023-06-25 19:21 | PC.NURSE ---
came from room stating he was unable to get an US IV. Perlita allen RN notified to attempt IV
--- NOTE | 2023-06-25 19:31 | HMH.EDGENADL ---
Discharge Plan Disposition Patient Disposition: Admitted Chief Complaint: Chest Pain Prescriptions Prescriptions: No Action aspirin [Adult Low Dose Aspirin] 81 mg tablet,delayed release (DR/EC) 81 mg PO DAILY clopidogrel 75 mg tablet 75 mg PO DAILY sitagliptin phosphate [Januvia] 50 mg tablet 50 mg PO DAILY famotidine 20 mg tablet 20 mg PO BID citalopram 20 mg tablet 20 mg PO DAILY 90 Days furosemide 40 mg tablet 40 mg PO DAILY nystatin 100,000 unit/gram powder 1 applic topical BID losartan 100 mg tablet 100 mg PO DAILY insulin NPH and regular human 100 unit/mL (70-30) insulin pen 20 unit SQ BID carvedilol 12.5 mg tablet 6.25 mg PO HS cyanocobalamin (vitamin B-12) 1,000 mcg/mL solution 1,000 mcg IM MONTHLY pantoprazole 40 mg tablet,delayed release (DR/EC) 40 mg PO DAILY pravastatin 80 MG tablet 80 mg PO HS cholecalciferol (vitamin D3) 1,000 UNIT tablet 1,000 unit PO DAILY acetaminophen [Acetaminophen Extra Strength] 500 mg Tablet 1,000 mg PO Q6H PRN (Reason: Mild Pain (Scale Score 1-4)) ferrous sulfate 325 mg (65 mg iron) Tablet 325 mg PO DAILY fluticasone propionate 50 mcg/actuation [place],Suspension 2 spray INTRANASAL DAILY PRN (Reason: Allergies) Rx Instructions: administer into each nostril gabapentin 100 mg capsule 100 mg PO TID PRN (Reason: nerve pain) 30 Days Qty: 90 0RF Referrals Follow up/Referrals: Provider,Referral, MD [Referring] - See instructions Clinical Impressions Clinical Impression: Cervical radiculopathy, Non-ST elevation MT (NSTEMI), MASSIMO (acute kidney injury) Discharge ED Provider: Serg Jung General Adult HPI General Chief complaint: Chest Pain Stated complaint: chest pain Time Seen by Provider: 06/25/23 18:52 Mode of Arrival: Wheelchair Source of Information: Patient Limitations: No Limitations Description of Symptoms (Recalled from ER Triage Doc. by RN): Presents to ED with c/o chest pain that radiates into neck x 5 days as well as stabbing pain in her back and pain down left arm that just started this afternoon. Patient report having cardiac hx. +Plavix. Patient reports she has a pacemaker. 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 History of Present Illness HPI narrative: \Patient is a 72-year-old female presenting today with 5 days of chest pain radiating to her back as well as left upper extremity paresthesias that she states feels like electricity. She also has left lateral neck pain no numbness or weakness in the left upper extremity. She states this does not feel like it is radiating from her chest but it is isolated to her neck and extending down her left arm. No exertional symptoms no shortness of breath no associate with this no fevers chills etc. Related Data Home Medications Medication Instructions Recorded Confirmed aspirin 81 mg tablet,delayed 81 mg PO DAILY Heart disease 09/17/17 08/18/22 release (Adult Low Dose Aspirin) clopidogrel 75 mg tablet 75 mg PO DAILY PLATELET INHIBITOR 09/17/17 08/18/22 sitagliptin phosphate 50 mg tablet 50 mg PO DAILY Diabetes 09/17/17 08/18/22 (Januvia) famotidine 20 mg tablet 20 mg PO BID Acid reflux 09/18/17 08/18/22 pravastatin 80 mg tablet 80 mg PO HS Cholesterol 05/28/18 08/18/22 citalopram 20 mg tablet 20 mg PO DAILY Depression 90 days 09/16/18 08/18/22 cholecalciferol (vitamin D3) 25 1,000 unit PO DAILY Supplement 05/12/19 08/18/22 mcg (1,000 unit) tablet losartan 100 mg tablet 100 mg PO DAILY Hypertension 10/04/19 08/18/22 insulin NPH-regular 70-30 U-100 20 unit SQ BID Diabetes 02/09/20 08/18/22 insulin 100 unit/mL subcutaneous pen carvedilol 12.5 mg tablet 6.25 mg PO HS BP 10/23/20 08/18/22 cyanocobalamin (vitamin B-12) 1,000 mcg IM MONTHLY Supplement 09/19/21 08/18/22 1,000 mcg/mL injection solution acetaminophen 500 mg tablet 1,000 mg PO Q6H PRN Mild Pain 07/09/22 08/18/22 (A
[2023-06-25 19:52] LABS: Chloride 108 mmol/L (98-107)
[2023-06-25 19:53] LABS: Potassium 4.1 mmoL/L (3.5-5.1); Sodium 137 mmol/L (136-145)
[2023-06-25 19:55] LABS: Alanine Aminotransferase 24 U/L (12-78); Alkaline Phosphatase 162 U/L (38-126); Aspartate Amino Transferase 39 U/L (14-36); Bilirubin,Total 0.3 mg/dl (0.2-1.3); Blood Urea Nitrogen 36 mg/dl (7-17); Creatinine Clearance Estimated 23 mL/min (50-200); Estimated Glomerular Filt Rate 16 ml/min (>60); GFR (African American) 19 ML/MIN (>60)
[2023-06-25 19:56] LABS: Albumin Level 3.5 g/dl (3.5-5.0); Albumin/Globulin Ratio 1.2 (1.1-1.8); Anion Gap 10.1 mEq/L (5-15); Calcium 8.5 mg/dl (8.4-10.2); Carbon Dioxide 23 mmol/L (22.0-30.0); Globulin 2.9 g/dL (1.3-3.2); Glucose 248 mg/dl (74-100); Total Protein,Serum 6.4 g/dl (6.3-8.2)
--- NOTE | 2023-06-25 19:57 | PC.NURSE ---
C.Fallon obtained 20g IV in left forearm.
[2023-06-25 20:00] LABS: Basophils # 0.1 K/mm3 (0-0.2); Basophils % 0.6 % (0.1-2.0); Eosinophils # 0.2 K/mm3 (0.0-0.4); Eosinophils % 2.7 % (0.1-12.0); Hematocrit 34.9 % (37.0-47.0); Mean Corpuscular HGB Conc 34.4 g/dL (31.8-35.4); Mean Corpuscular Hemoglobin 34.4 pg (27.0-31.2); Mean Platelet Volume 8.3 fl (7.4-10.4); Monocytes # 0.5 K/mm3 (0.1-1.0); Monocytes % 6.4 % (1.7-9.3); Neutrophils # 5.7 K/mm3 (1.8-7.8); Neutrophils % 67.3 % (37.0-80.0); Platelet Count 218 K/mm3 (142-424); Red Blood Count 3.49 M/mm3 (4.20-5.40); White Blood Count 8.5 K/mm3 (4.8-10.8)
[2023-06-25 20:07] LABS: Troponin I 0.07 ng/ml (0.00-0.034)
--- NOTE | 2023-06-25 20:31 | PC.NURSE ---
has been paged
--- NOTE | 2023-06-25 20:32 | PC.NURSE ---
on the phone with for admission
--- NOTE | 2023-06-25 20:40 | PC.NURSE ---
accepted; table games supervisor notified of admission
--- NOTE | 2023-06-25 20:42 | PC.NURSE ---
OBSERVATION ADMISSION TO 200 WITH DX OF CHEST PAIN, CERVICAL RADICULOPATHY TO SERVICE OF DR. OWEN TO DR. FINLEY.
--- NOTE | 2023-06-25 20:55 | PC.NURSE ---
Attempted to call report; RN not here yet. Will call back
[2023-06-25 21:06] LABS: D-Dimer 3.11 ug/mL (0.0-0.5)
--- NOTE | 2023-06-25 21:29 | PC.NURSE ---
Report handed off to Stephanie BLAKE
--- NOTE | 2023-06-25 21:39 | PC.NURSE ---
pt arrived to the floor via stretcher @21:39
[2023-06-25 23:19] LABS: Troponin I 0.11 ng/ml (0.00-0.034)
--- NOTE | 2023-06-25 23:29 | PC.NURSE ---
Pt and family member in room able to state some home medications and dosages but some home meds are unknown. Updated home med list to the best of my ability.
[2023-06-26] VITALS: BP 165/73; PULSE 80; PULSE 82; RESP 18; TEMP 36.9; O2SAT 99
[2023-06-26 00:01] LABS: POC Glucose,Bedside 216 (70-110)
[2023-06-26 02:40] LABS: Troponin I 0.14 ng/ml (0.00-0.034)
[2023-06-26 04:00] VITALS: BP 170/70; PULSE 70; PULSE 74; RESP 18; TEMP 36.8; O2SAT 93; BMI 33.3
--- NOTE | 2023-06-26 06:42 | PC.NURSE ---
Pt has c/o of pain in her left shoulder that radiates down her arm to her fingertips multiple times t/o shift. PRN morphine administered and nitro paste applied with favorable results. Pt has not slept during shift. Daughter is at bedside. Bed alarm on for pt safety. Call light within reach
[2023-06-26 08:00] VITALS: BP 180/72; PULSE 60; PULSE 70; RESP 18; TEMP 36.6; O2SAT 96; O2SAT 97
--- NOTE | 2023-06-26 08:18 | EXP.HP ---
History of Present Illness *Admission Date: 06/26/23 *Reason for visit:: Neck and shoulder pain *History of present illness: 72-year-old female with multiple medical problems including HFrEF, anemia, chronic coronary disease, chronic kidney disease, chronic lower extremity edema and neuropathy secondary to type 2 diabetes, came to the emergency department because of shoulder and neck pain. She reported the pain as starting in her neck and going into her shoulder and down into her arm. She had no relief with rubbing and analgesics at home. In the ER work-up was unremarkable, but troponins were done which revealed slight elevation. As result she was given nitroglycerin which reportedly helped the pain somewhat and she was admitted to hospital for serial troponins and cardiology consultation. Of note she was found to have an MASSIMO in the ER with creatinine elevation up to 2.9. This morning the patient tells me she does not think nitroglycerin really helped and she thinks it is more of a neck and shoulder problem rather than her heart. She has had no recent swelling, dyspnea or anterior chest pain. [facility] Disclaimer: The information contained in this section may have been updated after the patient was seen, as this information can be updated by other users. Medical History Anemia, chronic renal failure Cardiomyopathy CHF (congestive heart failure) Coronary artery disease Edema Hyperlipidemia Hypertension On mechanically assisted ventilation Recent myocardial infarction Stage 4 chronic kidney disease Family History Other No significant family history Social History (Updated 06/25/23 @ 23:22 by Jill Leigh RN) Smoking Status: Never smoker second hand exposure: No alcohol intake: never counseling provided: none substance use type: denies use current occupational status: retired and disabled Travel in the last 8 weeks: None household members: family housing: house current occupational exposures/hazards: No caffeine: No Meds Home Medications and Allergies Home Medications Medication Instructions Recorded Confirmed Type aspirin 81 mg tablet,delayed 81 mg PO DAILY Heart disease 09/17/17 06/25/23 History release (Adult Low Dose Aspirin) clopidogrel 75 mg tablet 75 mg PO DAILY PLATELET INHIBITOR 09/17/17 06/25/23 History sitagliptin phosphate 50 mg tablet 50 mg PO DAILY Diabetes 09/17/17 08/18/22 History (Januvia) famotidine 20 mg tablet 20 mg PO BID Acid reflux 09/18/17 06/25/23 History pravastatin 80 mg tablet 80 mg PO HS Cholesterol 05/28/18 06/25/23 History citalopram 20 mg tablet 20 mg PO DAILY Depression 90 days 09/16/18 08/18/22 History cholecalciferol (vitamin D3) 25 1,000 unit PO DAILY Supplement 05/12/19 08/18/22 History mcg (1,000 unit) tablet losartan 100 mg tablet 100 mg PO DAILY Hypertension 10/04/19 06/25/23 History insulin NPH-regular 70-30 U-100 20 unit SQ BID Diabetes 02/09/20 06/25/23 History insulin 100 unit/mL subcutaneous pen carvedilol 12.5 mg tablet 6.25 mg PO HS BP 10/23/20 06/25/23 History cyanocobalamin (vitamin B-12) 1,000 mcg IM MONTHLY Supplement 09/19/21 08/18/22 History 1,000 mcg/mL injection solution acetaminophen 500 mg tablet 1,000 mg PO Q6H PRN Mild Pain 07/09/22 08/18/22 History (Acetaminophen Extra Strength) (Scale Score 1-4) ferrous sulfate 325 mg (65 mg 325 mg PO DAILY supplement 07/09/22 08/18/22 History iron) tablet fluticasone propionate 50 2 spray intranasal DAILY PRN 07/09/22 08/18/22 History mcg/actuation nasal Allergies spray,suspension gabapentin 100 mg capsule 100 mg PO TID PRN nerve pain 30 07/20/22 06/25/23 Rx days #90 caps furosemide 40 mg tablet 40 mg PO BID 07/28/22 06/26/23 History nystatin 100,000 unit/gram topical 1 applic topical BID 07/28/22 08/18/22 History powder pantoprazole 40 mg tablet,de
--- NOTE | 2023-06-26 08:25 | PC.NURSE ---
NS at 75 ml/hr started per Besson verbal.
[2023-06-26 08:34] LABS: Chloride 111 mmol/L (98-107); Potassium 3.7 mmoL/L (3.5-5.1); Sodium 138 mmol/L (136-145)
--- NOTE | 2023-06-26 08:34 | XR_ITS ---
FINAL REPORT CLINICAL HISTORY: Left shoulder pain COMPARISON: none FINDINGS: LEFT RIGHT SHOULDER: 3 views of the left shoulder were obtained. There is no acute fracture or dislocation. There is chronic deformity of the humeral head consistent with a chronic fracture. There is mild AC joint and glenohumeral joint degenerative change. There is no soft tissue abnormality. IMPRESSION: Degenerative and chronic changes without acute bony abnormality. Reviewed, Interpreted and Dictated by Ed Erazo III, MD Transcribed by Dolores Dunn Authenticated and [facility]
--- NOTE | 2023-06-26 08:34 | XR_ITS ---
FINAL REPORT CLINICAL HISTORY: neck and shoulder pain FINDINGS: CERVICAL SPINE 7 views of the cervical spine were obtained including flexion and extension views. There is no acute fracture or malalignment. There is mild anterolisthesis of C3 on C4 and C4 on C5. Anterolisthesis increases with flexion with no significant change on extension. There is moderate degenerative change. Multilevel osteophytes are noted. There is no significant neuroforaminal narrowing. IMPRESSION: Moderate degenerative change. Anterolisthesis C3 on C4 and C4 on C5, increased with flexion. Reviewed, Interpreted and Dictated by Ed Erazo III, MD Transcribed by Dolores Dunn Authenticated and [facility]
[2023-06-26 08:37] LABS: Anion Gap 4.7 mEq/L (5-15); Blood Urea Nitrogen 29 mg/dl (7-17); Carbon Dioxide 26 mmol/L (22.0-30.0); Creatinine Clearance Estimated 26 mL/min (50-200); Estimated Glomerular Filt Rate 19 ml/min (>60); GFR (African American) 23 ML/MIN (>60)
[2023-06-26 08:38] LABS: Calcium 7.8 mg/dl (8.4-10.2); Glucose 178 mg/dl (74-100)
[2023-06-26 09:07] LABS: POC Glucose,Bedside 178 (70-110)
--- NOTE | 2023-06-26 10:14 | EXP.CARD.CON ---
History of Present Illness History of Present Illness Consult date: 06/26/23 Requesting physician: Royer Parrish Chief complaint: left shoulder pain History of present illness: 72-year-old white female with past medical history of coronary artery disease status post CABG, heart failure with recovered ejection fraction up to 55 to 60% status post HEALTH SERVICES RN-D placement, and diabetes mellitus presented to emergency department last night with complaints of left shoulder pain. Patient reports she has been having pain in her upper back for about 5 days that got worse last night and was radiating to posterior neck and left lateral neck into left shoulder. Patient reports pain is exacerbated with movement of left arm and palpation of left shoulder and neck. Patient denies any acute anterior chest pain. Patient denies any shortness of breath. Upon presentation to emergency department EKG shows an electrical ventricular pacemaker at a rate of 93. Initial labs as follow: Sodium 137, potassium 4.1, BUN 36, creatinine 2.9, troponin 0.07 trending up to 0.14. Of note patient has chronically elevated troponins since 2020. Patient was admitted for MASSIMO and NSTEMI. This morning patient is resting in bed with family member at bedside complaining of left shoulder and neck pain. Patient states I do not think this is my heart. [facility] Disclaimer: The information contained in this section may have been updated after the patient was seen, as this information can be updated by other users. Medical History Anemia, chronic renal failure Cardiomyopathy CHF (congestive heart failure) Coronary artery disease Edema Hyperlipidemia Hypertension On mechanically assisted ventilation Recent myocardial infarction Stage 4 chronic kidney disease Family History Other No significant family history Social History (Updated 06/25/23 @ 23:22 by Jill Leigh RN) Smoking Status: Never smoker second hand exposure: No alcohol intake: never counseling provided: none substance use type: denies use current occupational status: retired and disabled Travel in the last 8 weeks: None household members: family housing: house current occupational exposures/hazards: No caffeine: No Review of Systems ENT Ears, Nose, Mouth, and Throat: Reports neck pain *Cardiovascular Cardiovascular: Denies chest pain and Denies dyspnea on exertion *Respiratory Respiratory: Denies dyspnea on exertion *Musculoskeletal Musculoskeletal: Reports neck pain and Reports radiating pain into limb (Left shoulder) Comments: . Exam Data for Last 24 hours Vital signs and Labs for Last 24 Hours: Temp Pulse Resp BP Pulse Ox O2 Del Method 97.9 F 70 18 180/72 H 97 Room Air 06/26/23 08:00 06/26/23 08:00 06/26/23 08:00 06/26/23 08:00 06/26/23 08:00 06/26/23 08:24 Laboratory Results - last 24 hr 06/25/23 18:39: Sodium 137, Potassium 4.1, Chloride 108 H, Carbon Dioxide 23, Anion Gap 10.1, BUN 36 H, Creatinine 2.90 H, Estimated Creat Clear 23, Estimated GFR 16 L*, Est GFR ( Amer) 19 L*, Glucose 248 H, Calcium 8.5, Total Bilirubin 0.3, AST 39 H, ALT 24, Alkaline Phosphatase 162 H, Troponin I 0.07 H, Total Protein 6.4, Albumin 3.5, Globulin 2.9, Albumin/Globulin Ratio 1.2 06/25/23 19:58: WBC 8.5, RBC 3.49 L, Hgb 12.0 L, Hct 34.9 L, MCV 100.0 H, MCH 34.4 H, MCHC 34.4, RDW 14.0, Plt Count 218, MPV 8.3, Neut % (Auto) 67.3, Lymph % (Auto) 23.0, [place] % (Auto) 6.4, Eos % (Auto) 2.7, Baso % (Auto) 0.6, Neut # (Auto) 5.7, Lymph # (Auto) 2.0, [place] # (Auto) 0.5, Eos # (Auto) 0.2, Baso # (Auto) 0.1 06/25/23 20:40: D-Dimer 3.11 H 06/25/23 22:15: Troponin I 0.11 H 06/25/23 23:46: POC Glucose 216 H 06/26/23 02:10: Hemoglobin A1c 7.0 H, Troponin I 0.14 H 06/26/23 08:11: Sodium 138, Potassium 3.7, Chloride 111 H, Carbon Dioxide 26, Anion Gap 4.7 L, BUN 29 H, Creatinine 2.50 H, E
--- NOTE | 2023-06-26 10:42 | PC.NURSE ---
courtesy tech note: pt is sitting in her wheelchair with family at BS. No requests were voiced at this time.
[2023-06-26 12:00] VITALS: BP 179/72; PULSE 60; PULSE 70; RESP 17; TEMP 36.7; O2SAT 96
[2023-06-26 16:00] VITALS: BP 142/56; PULSE 70; RESP 17; TEMP 36.5; O2SAT 96
--- NOTE | 2023-06-26 16:43 | EXP.DC.SUM ---
General Admission date:: 06/25/23 Discharge date: 06/26/23 HPI HPI HPI: 72-year-old female with multiple medical problems including HFrEF, anemia, chronic coronary disease, chronic kidney disease, chronic lower extremity edema and neuropathy secondary to type 2 diabetes, came to the emergency department because of shoulder and neck pain. She reported the pain as starting in her neck and going into her shoulder and down into her arm. She had no relief with rubbing and analgesics at home. In the ER work-up was unremarkable, but troponins were done which revealed slight elevation. As result she was given nitroglycerin which reportedly helped the pain somewhat and she was admitted to hospital for serial troponins and cardiology consultation. Of note she was found to have an MASSIMO in the ER with creatinine elevation up to 2.9. This morning the patient tells me she does not think nitroglycerin really helped and she thinks it is more of a neck and shoulder problem rather than her heart. She has had no recent swelling, dyspnea or anterior chest pain. Hospital Course Hospital Course Hospital Course: Patient was admitted. MASSIMO improved with downtrending creatinine the morning following admission. Patient was given cautious IV fluids. Cardiology consult was obtained, they felt that her pain was most likely from her neck/shoulder situation did offer inpatient stress testing but patient declined. They will see her as an outpatient to follow-up. X-rays of shoulder were significant for DJD but her spine x-ray showed anterolisthesis on flexion which certainly could cause some pinched nerve issues. I talked about this with the patient and family. I recommended supportive care/pain control, we will administer 1 dose of IV steroids today before discharge and will increase her gabapentin dose. She is in a difficult spot with her kidney disease and cannot use NSAIDs. She is not interested in surgical evaluation but I did tell her that we might pursue CT scanning to facilitate possible injection therapy and she is agreeable to that plan. Plan will be to discharge home after her Solu-Medrol injection tonight, we will increase the gabapentin as noted and I will see her on Thursday to follow-up pain and recheck her kidney function. I did ask her to hold her Lasix for a couple of days given her kidney injury and her very well controlled edema today. Exam Data for Last 24 hours Vital signs and Labs for Last 24 Hours: Temp Pulse Resp BP Pulse Ox O2 Del Method 97.7 F 70 17 142/56 H 96 Room Air 06/26/23 16:00 06/26/23 16:00 06/26/23 16:00 06/26/23 16:00 06/26/23 16:00 06/26/23 16:00 Laboratory Results - last 24 hr 06/25/23 18:39: Sodium 137, Potassium 4.1, Chloride 108 H, Carbon Dioxide 23, Anion Gap 10.1, BUN 36 H, Creatinine 2.90 H, Estimated Creat Clear 23, Estimated GFR 16 L*, Est GFR ( Amer) 19 L*, Glucose 248 H, Calcium 8.5, Total Bilirubin 0.3, AST 39 H, ALT 24, Alkaline Phosphatase 162 H, Troponin I 0.07 H, Total Protein 6.4, Albumin 3.5, Globulin 2.9, Albumin/Globulin Ratio 1.2 06/25/23 19:58: WBC 8.5, RBC 3.49 L, Hgb 12.0 L, Hct 34.9 L, MCV 100.0 H, MCH 34.4 H, MCHC 34.4, RDW 14.0, Plt Count 218, MPV 8.3, Neut % (Auto) 67.3, Lymph % (Auto) 23.0, [place] % (Auto) 6.4, Eos % (Auto) 2.7, Baso % (Auto) 0.6, Neut # (Auto) 5.7, Lymph # (Auto) 2.0, [place] # (Auto) 0.5, Eos # (Auto) 0.2, Baso # (Auto) 0.1 06/25/23 20:40: D-Dimer 3.11 H 06/25/23 22:15: Troponin I 0.11 H 06/25/23 23:46: POC Glucose 216 H 06/26/23 02:10: Hemoglobin A1c 7.0 H, Troponin I 0.14 H 06/26/23 08:11: Sodium 138, Potassium 3.7, Chloride 111 H, Carbon Dioxide 26, Anion Gap 4.7 L, BUN 29 H, Creatinine 2.50 H, Estimated Creat Clear 26, Estimated GFR 19 L*, Est GFR ( Amer) 23 L D, Glucose 178 H D, Calcium 7.8 L 06/26/23 08:59: POC Glucose 178 H I & O for Last 24 hours: Intake & Output 06/24/23 06/25/23 06/26/23 06/27/23 11:59 11:59 11:59 11:59 Intake Total
--- NOTE | 2023-06-29 15:37 | CARE MANAGER ---
Patient states she is doing well. She is aware of medication change with her Neurontin. She denies questions or concerns. She was aware of her follow up appointment for today but she rescheduled it for . LOU Santos
== END 2023-06-26 18:21 | disposition home or self-care (01) ==
LOC: ER 20:42 → 2ND 20:52
PROVIDERS: Admitting Provider Family Medicine; Emergency Provider Student in an Organized Health Care Education/Training Program; PCP Internal Medicine Adolescent Medicine; Visit Provider Internal Medicine Adolescent Medicine
DX: I21.4 Non-ST elevation (NSTEMI) myocardial infarction (principal); M54.12 Radiculopathy, cervical region; N17.9 Acute kidney failure, unspecified; R07.89 Other chest pain; I25.10 Atherosclerotic heart disease of native coronary artery without angina pectoris; Z95.1 Presence of aortocoronary bypass graft; M79.18 Myalgia, other site; I50.21 Acute systolic (congestive) heart failure; Z79.4 Long term (current) use of insulin; I42.9 Cardiomyopathy, unspecified; E11.22 Type 2 diabetes mellitus with diabetic chronic kidney disease; I13.0 Hypertensive heart and chronic kidney disease with heart failure and stage 1 through stage 4 chronic kidney disease, or unspecified chronic kidney disease; Z95.0 Presence of cardiac pacemaker; N18.4 Chronic kidney disease, stage 4 (severe)
CPT/HCPCS: 36415; 71045; 72052; 73030; 80048; 80053; 82962; 83036; 84484; 85025; 85378; 93005; 99291; G0378; J2405

== ENCOUNTER → 2023-07-04 09:10 | Outpatient (CLI) | payer MEDICARE, SELFPAY ==
[2023-07-04 10:39] LABS: Chloride 108 mmol/L (98-107); Sodium 138 mmol/L (136-145)
[2023-07-04 10:40] LABS: Potassium 4.1 mmoL/L (3.5-5.1)
[2023-07-04 10:42] LABS: Blood Urea Nitrogen 40 mg/dl (7-17)
[2023-07-04 10:43] LABS: Anion Gap 10.1 mEq/L (5-15); Calcium 8.4 mg/dl (8.4-10.2); Carbon Dioxide 24 mmol/L (22.0-30.0); Estimated Glomerular Filt Rate 18 ml/min (>60); GFR (African American) 22 ML/MIN (>60); Glucose 176 mg/dl (74-100)
== END ==
PROVIDERS: PCP Internal Medicine Adolescent Medicine; Visit Provider Nurse Practitioner Family
DX: N18.4 Chronic kidney disease, stage 4 (severe) (principal); N17.9 Acute kidney failure, unspecified
CPT/HCPCS: 36415; 80048

== ENCOUNTER → 2023-07-10 11:12 | Outpatient (CLI) | payer MEDICARE, SELFPAY ==
--- NOTE | 2023-07-10 11:44 | CT_ITS ---
FINAL REPORT TECHNIQUE: Axial images were obtained of the cervical spine by computed tomography. Coronal and sagittal reconstruction process performed. This study was performed with techniques to keep radiation doses as low as reasonably achievable (ALARA). Individualized dose reduction techniques using automated exposure control or adjustment of mA and/or kV according to the patient's size were employed. CLINICAL HISTORY: CERVICAL RADICULOPATHY COMPARISON: None FINDINGS: Cervical vertebrae show normal height. There is moderate disc space narrowing at the C5-6 level. There are prominent osteophytes noted at the C4-5 and C5-6 levels. There is mild compromise of the midline spinal canal at the C4-5 and C5-6 levels. There is no malalignment. The facets are properly aligned. Moderate vascular calcifications are noted at the carotid bifurcations bilaterally. IMPRESSION: Degenerative change at the C4-5 and C5-6 levels. Moderate vascular calcifications noted at the carotid bifurcations bilaterally. Reviewed, Interpreted and Dictated by Sterling Olvera MD Transcribed by Neisha Hayes Authenticated and [facility]
== END ==
PROVIDERS: PCP Internal Medicine Adolescent Medicine; Visit Provider Nurse Practitioner Family
DX: M54.12 Radiculopathy, cervical region (principal)
CPT/HCPCS: 72125

== ENCOUNTER → 2023-07-22 12:40 | Outpatient (CLI) | payer MEDICARE, SELFPAY ==
--- NOTE | 2023-07-22 12:42 | CA_ITS ---
FINAL REPORT TECHNIQUE: Color Doppler, duplex Doppler and encarnacion scale sonography of the bilateral neck arterial vasculature was performed. Velocities were measured in the carotid arteries. Stenosis evaluation based on the validated velocity criteria. CLINICAL HISTORY: CARTOID CALCIFICATIONS SEEN ON CT C-SPINE,HTN,HLD,DM,NECK PAIN FINDINGS: The peak systolic velocity of the right common carotid artery is 83 cm/s. The peak systolic velocity of the right internal carotid artery is 79 cm/s and end diastolic velocity 15 cm/s. The ICA/CCA ratio is 1.5. A small amount of plaque is present. The right external carotid artery is patent. The right vertebral artery is patent with antegrade flow. The peak systolic velocity of the left common carotid artery is 55 cm/s. The peak systolic velocity of the left internal carotid artery is 60 cm/s and end diastolic velocity 14 cm/s. The ICA/CCA ratio is 1.1. A small amount of plaque is present. The left external carotid artery is patent.The left vertebral artery is patent with antegrade flow. IMPRESSION: Less than 50% bilateral carotid stenoses. Bilateral patent vertebral arteries with antegrade flow. If indicated, CTA or MRA could further evaluate. Reviewed, Interpreted and Dictated by Ed Erazo III, MD Transcribed by Seda Kuo Authenticated and [facility]
== END ==
LOC: RT 12:41
PROVIDERS: PCP Internal Medicine Adolescent Medicine; Visit Provider Nurse Practitioner Family
DX: I65.23 Occlusion and stenosis of bilateral carotid arteries (principal); M54.12 Radiculopathy, cervical region
CPT/HCPCS: 93880

== ENCOUNTER 2023-07-28 22:06 | Inpatient (IN) | payer MEDICARE, SELFPAY ==
[2023-07-28 22:06] VITALS: BP 208/93; PULSE 79; RESP 14; TEMP 37.1; O2SAT 95; BMI 33.4
--- NOTE | 2023-07-28 22:16 | XR_ITS ---
PROCEDURE INFORMATION: Exam: XR Chest Exam date and time: 07/28/2023 10:25 PM Age: 72 years old Clinical indication: Other: AMS TECHNIQUE: Imaging protocol: Radiologic exam of the chest. Views: 1 view. COMPARISON: CR XR CHEST PORTABLE 06/25/2023 8:23 PM FINDINGS: Tubes, catheters and devices: Left chest wall pacemaker in place. Lungs: Low lung volume. Mild left retrocardiac opacity. Pleural spaces: Normal No pleural effusion. No pneumothorax. Heart/Mediastinum: No cardiomegaly. Three lead pacemaker/AICD in place with leads extending to the right atrium, right ventricle, and through the coronary sinus to the left ventricle. Bones/joints: Status post sternotomy. IMPRESSION: Low lung volumes. Mild left retrocardiac opacity is probably atelectasis.
--- NOTE | 2023-07-28 22:16 | CT_ITS ---
PROCEDURE INFORMATION: Exam: CT Head Without Contrast Exam date and time: 07/28/2023 10:41 PM Age: 72 years old Clinical indication: Altered mental status/memory loss; Age related cognitive decline; Additional info: AMS TECHNIQUE: Imaging protocol: Computed tomography of the head without contrast. Radiation optimization: All CT scans at this facility use at least one of these dose optimization techniques: automated exposure control; mA and/or kV adjustment per patient size (includes targeted exams where dose is matched to clinical indication); or iterative reconstruction. REPORTING DATA: Count of CT and Cardiac NM exams in prior 12 months: This patient has received [address] and 0 known cardiac nuclear medicine studies in the 12 months prior to the current study. COMPARISON: CT HEAD/BRAIN WO CON 07/17/2022 8:32 AM FINDINGS: Brain: Moderate supratentorial white matter hypodensities are likely the sequela of chronic small vessel ischemic disease. Incidental mild calcifications in the bilateral basal ganglia. Mild diffuse atrophy. No hemorrhage, edema, or mass effect. Cerebral ventricles: No ventriculomegaly. Paranasal sinuses: Visualized sinuses are unremarkable. No fluid levels. Mastoid air cells: Visualized mastoid air cells are well aerated. Bones/joints: Unremarkable. No acute fracture. Soft tissues: Unremarkable. Other findings: No significant changes. IMPRESSION: 1. No acute intracranial findings. 2. No significant changes.
--- NOTE | 2023-07-28 22:19 | HMH.EDGENADL ---
Discharge Plan Disposition Patient Disposition: Admitted Chief Complaint: Altered Mental Status Clinical Impressions Clinical Impression: Hypertensive emergency, Acute UTI Sepsis Qualifiers: Sepsis type: sepsis due to unspecified organism Sepsis acute organ dysfunction status: with acute organ dysfunction Severe sepsis acute organ dysfunction type: encephalopathy Discharge ED Provider: Bart Rashid General Adult HPI General Chief complaint: Altered Mental Status Stated complaint: AMS Time Seen by Provider: 07/28/23 22:09 History of Present Illness HPI narrative: 72-year-old female, history of heart failure, recent mission for MASSIMO, peripheral artery disease, presents for altered mental status. She lives alone. She was last known normal greater than 24 hours ago approximately 1 PM. Today she was noted by family to be sitting in her chair and be minimally responsive. Would squeeze hands and respond to verbal stimuli but would not open her eyes or speak. Patient was recently placed on steroids. Patient has had urinary tract infections in the past. No reported recent fever or illness. They apparently upped her gabapentin recently as well. Related Data Home Medications Medication Instructions Recorded Confirmed aspirin 81 mg tablet,delayed 81 mg PO DAILY Heart disease 09/17/17 06/25/23 release (Adult Low Dose Aspirin) clopidogrel 75 mg tablet 75 mg PO DAILY 09/17/17 06/25/23 sitagliptin phosphate 50 mg tablet 50 mg PO DAILY Diabetes 09/17/17 06/26/23 (Januvia) famotidine 20 mg tablet 20 mg PO BID Acid reflux 09/18/17 06/25/23 pravastatin 80 mg tablet 80 mg PO HS Cholesterol 05/28/18 06/25/23 citalopram 20 mg tablet 20 mg PO DAILY Depression 90 days 09/16/18 06/26/23 cholecalciferol (vitamin D3) 25 1,000 unit PO DAILY Supplement 05/12/19 06/26/23 mcg (1,000 unit) tablet losartan 100 mg tablet 100 mg PO DAILY Hypertension 10/04/19 06/25/23 insulin NPH-regular 70-30 U-100 20 unit SQ BID Diabetes 02/09/20 06/25/23 insulin 100 unit/mL subcutaneous pen carvedilol 12.5 mg tablet 12.5 mg PO BID 10/23/20 06/26/23 ferrous sulfate 325 mg (65 mg 325 mg PO DAILY supplement 07/09/22 06/26/23 iron) tablet furosemide 40 mg tablet 40 mg PO BID 07/28/22 06/26/23 pantoprazole 40 mg tablet,delayed 40 mg PO HS 06/25/23 06/25/23 release tramadol 50 mg tablet 50 mg PO TIDP PRN Pain 06/25/23 06/26/23 Previous Rx's Medication Instructions Recorded gabapentin 300 mg capsule 300 mg PO TID #30 caps 06/26/23 Allergies Allergy/AdvReac Type Severity Reaction Status Date / Time fentanyl [FENTANYL] Allergy Unknown Verified 08/18/22 09:32 latex [LATEX] Allergy Unknown Verified 08/18/22 09:32 codeine AdvReac Unknown Verified 08/18/22 09:32 [facility] Disclaimer: The information contained in this section may have been updated after the patient was seen, as this information can be updated by other users. Medical History (Updated 07/29/23 @ 00:28 by Bart Rashid MD) Anemia, chronic renal failure Cardiomyopathy CHF (congestive heart failure) Coronary artery disease Diabetes mellitus Edema Hyperlipidemia Hypertension Stage 4 chronic kidney disease Surgical History (Updated 07/29/23 @ 00:23 by Vick Kidd MD) Hx of CABG Pacemaker S/P cardiac cath Family History Other No significant family history Social History (Updated 06/25/23 @ 23:22 by Jill Leigh RN) Smoking Status: Never smoker second hand exposure: No alcohol intake: never counseling provided: none substance use type: denies use current occupational status: retired and disabled Travel in the last 8 weeks: None household members: family housing: house current occupational exposures/hazards: No caffeine: No ROS Obtained: Yes unobtainable due to mental status Physical Exam General General appearance: other (Localizes painful stimuli in all e
[2023-07-28 22:24] LABS: Microscopic, Urine URINE MICROSCOPIC (MICROSCOPIC)
[2023-07-28 22:25] VITALS: BP 193/94; RESP 21
[2023-07-28 22:28] LABS: Appearance,Urine SL CLOUDY (Clear); Bilirubin,Urine Negative (Negative); Blood, Urine 1+ (Negative); Color,Urine YELLOW (Yellow); Glucose,Urine (UA) Negative (Negative); Ketones,Urine Negative (Negative); Leukocyte Esterase,Urine 1+ (Negative); Nitrate,Urine Negative (Negative); Protein,Urine 3+ (Negative); Specific Gravity, Urine 1.025 (1.005-1.030); Urobilinogen,Urine 0.2 EU/dl (0.2)
[2023-07-28 22:35] LABS: VBG Base Excess -6.2 mmol/L (-2.4-2.3); VBG HCO3 19.3 mmol/L (23-30); VBG Oxygen Saturation 96.7 % (50-70); VBG PCO2 34.7 mmol/L (35-51); VBG PH 7.36 mmol/L (7.31-7.41); VBG Total CO2 20.3 mmol/L (23-27)
[2023-07-28 22:36] LABS: Basophils # 0.1 K/mm3 (0-0.2); Basophils % 0.3 % (0.1-2.0); Eosinophils # 0.3 K/mm3 (0.0-0.4); Eosinophils % 1.4 % (0.1-12.0); Hematocrit 38.7 % (37.0-47.0); Hemoglobin 13.2 g/dL (12.2-16.2); Lymphocytes # 1.6 K/mm3 (0.7-4.5); Lymphocytes % 8.2 % (10-50); Mean Corpuscular HGB Conc 34.1 g/dL (31.8-35.4); Mean Corpuscular Hemoglobin 33.4 pg (27.0-31.2); Mean Corpuscular Volume 98.1 fl (81-99); Mean Platelet Volume 8.5 fl (7.4-10.4); Monocytes % 5.1 % (1.7-9.3); Neutrophils # 16.3 K/mm3 (1.8-7.8); Platelet Count 225 K/mm3 (142-424); Red Blood Count 3.94 M/mm3 (4.20-5.40); Red Cell Distribution Width 14.3 % (11.5-17.5); White Blood Count 19.2 K/mm3 (4.8-10.8)
[2023-07-28 22:39] LABS: Amphetamine/Metha Screen,Urine Negative ng/ml (<1000)
[2023-07-28 22:39] LABS: Acetone, Serum (Rapid) None Detected (None Detect)
[2023-07-28 22:40] LABS: Barbiturates Screen,Urine Negative ng/ml (<200)
[2023-07-28 22:40] LABS: MANUAL DIFFERENTIAL MANUAL DIFFERENTIAL (MANUAL DIFF)
[2023-07-28 22:41] LABS: Benzodiazepines Screen,Urine Negative ng/ml (<200); Cannabinoid Screen,Urine Negative ng/ml (<50)
[2023-07-28 22:42] LABS: Cocaine Screen,Urine Negative ng/ml (<300)
[2023-07-28 22:42] LABS: Chloride 107 mmol/L (98-107); Sodium 134 mmol/L (136-145)
[2023-07-28 22:43] LABS: Potassium 4.3 mmoL/L (3.5-5.1)
[2023-07-28 22:43] LABS: Methadone Screen,Urine Negative ng/ml (<300)
[2023-07-28 22:44] LABS: Phencyclidine Screen,Urine Negative ng/ml (<25)
[2023-07-28 22:45] LABS: Alanine Aminotransferase 29 U/L (12-78); Albumin Level 3.2 g/dl (3.5-5.0); Albumin/Globulin Ratio 1.1 (1.1-1.8); Alkaline Phosphatase 121 U/L (38-126); Anion Gap 8.3 mEq/L (5-15); Aspartate Amino Transferase 56 U/L (14-36); Bilirubin,Total 0.9 mg/dl (0.2-1.3); Blood Urea Nitrogen 46 mg/dl (7-17); Calcium 8.2 mg/dl (8.4-10.2); Carbon Dioxide 23 mmol/L (22.0-30.0); Creatine Kinase 260 U/L (30-135); Creatinine Clearance Estimated 24 mL/min (50-200); Estimated Glomerular Filt Rate 15 ml/min (>60); GFR (African American) 18 ML/MIN (>60); Globulin 2.9 g/dL (1.3-3.2); Glucose 119 mg/dl (74-100); Total Protein,Serum 6.1 g/dl (6.3-8.2)
[2023-07-28 22:46] LABS: INR 0.95 (0.9-1.1); Lactic Acid 1.2 mmol/L (0.7-2.1); Prothrombin Time 10.3 seconds (10.1-12.5)
[2023-07-28 22:46] LABS: Opiate Screen,Urine Negative ng/ml (<300)
[2023-07-28 22:47] LABS: Acetaminophen < 10 ug/ml (10-30); Ethyl Alcohol < 10 mg/dl (0-10); Salicylate < 1.0 mg/dL (2.0-20.0)
[2023-07-28 22:59] LABS: Magnesium 1.8 mg/dl (1.6-2.3)
[2023-07-28 23:15] LABS: Lymphocytes % 13 % (10-50); Monocytes % 1 % (2-9); Neutrophils % 86 % (42-76); Platelet Estimate Normal; RBC Morphology Normal; Total Cells Counted 100
--- NOTE | 2023-07-28 23:17 | ECG_ITS ---
APPROVED REPORT Exam: Resting ECG HR:88 bpm ECG Measurements Heart Rate 88 AXES MO 158 P 52 QRSd 140 QRS 66 QT 394 T 156 QTc 440 Conclusion ELECTRONIC VENTRICULAR PACEMAKER ABNORMAL RHYTHM ECG UNCONFIRMED REPORT Electronically signed by : Royer Parrish MD 07/29/2023 18:25:46
[2023-07-28 23:18] LABS: Bacteria,Urine 4+ /lpf; RBC,Urine Occasional #/hpf (0-3); WBC,Urine TNTC #/hpf (0-3)
[2023-07-28 23:24] LABS: Troponin I 0.35 ng/ml (0.00-0.034)
[2023-07-28 23:40] VITALS: BP 211/100
[2023-07-29] VITALS (11 sets, daily range): BP systolic 130–184; BP diastolic 61–86; PULSE 68–73; RESP 13–20; TEMP 36.4–37.7; O2SAT 92–99; BMI 30.9
--- NOTE | 2023-07-29 00:16 | PC.NURSE ---
Callled report to joie BLAKE on 2nd floor and answered all questions
--- NOTE | 2023-07-29 00:17 | EXP.HP ---
History of Present Illness *Admission Date: 07/29/23 *Reason for visit:: Altered mental status *History of present illness: Patient is a 72-year-old female that presents to [facility] emergency department accompanied by her daughter for altered mental status for greater than 8 hours. Her daughter provides the history. Daughter reports that the patient lives with her 2 daughters and grandson and will occasionally help with cooking. She normally takes her own medications including her chronically prescribed opioid. Daughter identified a change in her mental status that would wax and wane with no associated falls, syncope or identified dysarthria. They presented to the ED for evaluation. In the ED her presenting blood pressure was 208/93 with initial tachycardia that responded to beta-dhara therapy. A CT of the head identified no acute disease and her laboratory studies identified a leukocytoses and abnormal urinalysis. She was assessed with urosepsis out of the ED. We were consulted for hospital admission. [facility] Medical History (Updated 07/29/23 @ 00:28 by Bart Rashid MD) Anemia, chronic renal failure Cardiomyopathy CHF (congestive heart failure) Coronary artery disease Diabetes mellitus Edema Hyperlipidemia Hypertension Stage 4 chronic kidney disease Surgical History (Updated 07/29/23 @ 00:23 by Vick Kidd MD) Hx of CABG Pacemaker S/P cardiac cath Family History Other No significant family history Social History (Updated 07/29/23 @ 00:52 by Obdulia Blake RN) Smoking Status: Never smoker second hand exposure: No alcohol intake: never counseling provided: none substance use type: denies use current occupational status: retired and disabled Travel in the last 8 weeks: None household members: family housing: house current occupational exposures/hazards: No caffeine: No Review of Systems Review of Systems Review of systems:: unable to obtain Meds Home Medications and Allergies Home Medications Medication Instructions Recorded Confirmed Type aspirin 81 mg tablet,delayed 81 mg PO DAILY Heart disease 09/17/17 07/29/23 History release (Adult Low Dose Aspirin) clopidogrel 75 mg tablet 75 mg PO DAILY 09/17/17 07/29/23 History sitagliptin phosphate 50 mg tablet 50 mg PO DAILY Diabetes 09/17/17 07/29/23 History (Januvia) famotidine 20 mg tablet 20 mg PO BID Acid reflux 09/18/17 07/29/23 History pravastatin 80 mg tablet 80 mg PO HS Cholesterol 05/28/18 07/29/23 History citalopram 20 mg tablet 20 mg PO DAILY Depression 90 days 09/16/18 07/29/23 History cholecalciferol (vitamin D3) 25 1,000 unit PO DAILY Supplement 05/12/19 07/29/23 History mcg (1,000 unit) tablet losartan 100 mg tablet 100 mg PO DAILY Hypertension 10/04/19 07/29/23 History insulin NPH-regular 70-30 U-100 20 unit SQ BID Diabetes 02/09/20 07/29/23 History insulin 100 unit/mL subcutaneous pen carvedilol 12.5 mg tablet 12.5 mg PO BID 10/23/20 07/29/23 History ferrous sulfate 325 mg (65 mg 325 mg PO DAILY supplement 07/09/22 07/29/23 History iron) tablet pantoprazole 40 mg tablet,delayed 40 mg PO HS 06/25/23 07/29/23 History release tramadol 50 mg tablet 50 mg PO TIDP PRN Pain 06/25/23 07/29/23 History gabapentin 300 mg capsule 300 mg PO TID #30 caps 06/26/23 07/29/23 Rx New Prescriptions to Start Prescriptions: Allergies Allergy/AdvReac Type Severity Reaction Status Date / Time fentanyl [FENTANYL] Allergy Unknown Verified 08/18/22 09:32 latex [LATEX] Allergy Unknown Verified 08/18/22 09:32 codeine AdvReac Unknown Verified 08/18/22 09:32 Exam Data for Last 24 hours Vital signs and Labs for Last 24 Hours: Temp Pulse Resp BP Pulse Ox O2 Del Method 98.8 F 73 13 175/69 H 97 Room Air 07/28/23 22:06 07/29/23 00:01 07/29/23 00:01 07/29/23 00:01 07/29/23 00:01 07/28/23 22:06 Laboratory Results
[2023-07-29 00:40] LABS: Coronavirus 19, PCR Not Detected (NotDetected); Influenza A, PCR Not Detected (NotDetected); Influenza B, PCR Not Detected (NotDetected)
--- NOTE | 2023-07-29 01:11 | PC.NURSE ---
pt arrived to the floor via stretcher @00:24
[2023-07-29 02:51] LABS: Troponin I 0.48 ng/ml (0.00-0.034)
--- NOTE | 2023-07-29 04:05 | PC.NURSE ---
Pt was admitted to the unit @ 0024. Pt is not alert and has no verbal response to stimuli. Pt has blister like open areas on both buttocks which has a red to purple color. Family is at bedside and helpful with admission. Pt dose not appear to be in distress or pain at this time and family deny needs at this time.
[2023-07-29 05:13] LABS: POC Glucose,Bedside 118 (70-110)
[2023-07-29 07:47] LABS: Basophils % 0.3 % (0.1-2.0); Eosinophils # 0.1 K/mm3 (0.0-0.4); Eosinophils % 0.6 % (0.1-12.0); Hematocrit 36.5 % (37.0-47.0); Hemoglobin 12.1 g/dL (12.2-16.2); Lymphocytes # 1.9 K/mm3 (0.7-4.5); Lymphocytes % 11.6 % (10-50); Mean Corpuscular HGB Conc 33.2 g/dL (31.8-35.4); Mean Corpuscular Hemoglobin 33.2 pg (27.0-31.2); Mean Corpuscular Volume 100.2 fl (81-99); Mean Platelet Volume 8.3 fl (7.4-10.4); Monocytes # 0.9 K/mm3 (0.1-1.0); Monocytes % 5.4 % (1.7-9.3); Neutrophils # 13.1 K/mm3 (1.8-7.8); Platelet Count 182 K/mm3 (142-424); Red Blood Count 3.64 M/mm3 (4.20-5.40); Red Cell Distribution Width 14.3 % (11.5-17.5)
[2023-07-29 07:52] LABS: Chloride 111 mmol/L (98-107); MANUAL DIFFERENTIAL MANUAL DIFFERENTIAL (MANUAL DIFF); Potassium 3.6 mmoL/L (3.5-5.1); Sodium 135 mmol/L (136-145)
[2023-07-29 07:55] LABS: Anion Gap 7.6 mEq/L (5-15); Blood Urea Nitrogen 43 mg/dl (7-17); Calcium 7.9 mg/dl (8.4-10.2); Carbon Dioxide 20 mmol/L (22.0-30.0); Creatinine Clearance Estimated 24 mL/min (50-200); Estimated Glomerular Filt Rate 17 ml/min (>60); GFR (African American) 21 ML/MIN (>60); Glucose 124 mg/dl (74-100)
--- NOTE | 2023-07-29 08:01 | HMH.PHAINT1 ---
Pharmacy Intervention Comments: Med reconciliation completed using external fill history and interview with family. They states that she still has albuterol to use prn, gabapentin dose has been increased to 300 mg TID but she does not always take TID, tramadol is usually given BID rather than TID, and she is still taking januvia despite no recent fill history.
[2023-07-29 09:09] LABS: Lymphocytes % 4 % (10-50); Monocytes % 5 % (2-9); Neutrophils % 91 % (42-76); Total Cells Counted 100
[2023-07-29 09:10] LABS: Macrocytosis 1+; Platelet Estimate Normal
[2023-07-29 09:11] LABS: Vitamin B12 946 pg/mL (239-931)
--- NOTE | 2023-07-29 10:50 | DIET.NUTRFU ---
Patient indicated chewing issues upon admission assessment per tatum. During rounds nursing reported patient is not alert enough to eat solids yet, she has only been taking sips of liquids. She was recently here and was tolerating a cardiac diet. Patient also noted to have a blister now open to her bottom, will add supplements for extra protein when oral diet is tolerated. Lives with daughter and grandson helps with meals. Full nutritional assessment to follow
[2023-07-29 11:47] LABS: POC Glucose,Bedside 122 (70-110)
--- NOTE | 2023-07-29 13:54 | HMH.PTWOUND ---
Rehab Inpt Wound Evaluation Rehab IP Wound Evaluation Start: 07/29/23 11:29 Freq: ONCE Status: Active Protocol: Document 07/29/23 13:40 LUPE (Rec: 07/29/23 13:54 LUPE [id number]) Rehab PT Wound Assessment Subjective Subjective Patient admitted to [facility] secondary to MASSIMO/UTI. Patient lives at home with her 2 daughters and nephew. Patient was previously required RW for ambulation, as well as assistance with ADL's /IADL's. She is being seen today by PT for a wound care evaluation for a sacral pressure injury. Within pressure injury, patient has 2 small stage I sores (R .4x.5 cm, L 1x1 cm). Wound has some drainage from the blister. Wound Sacrum Wound Type Blister Is This a Chronic Wound No Wound Staging Stage II Query Text:Stage I - Unbroken, red skin, no blanching. Stage II - Skin broken, superficial skin loss involving epidermis alone or also dermis. Partial loss of skin layers. Stage III - Pressure area involves epidermis, dermis and subcutaneous tissue, full thickness skin loss. Stage IV - Pressure area involves epidermis, subcutaneous tissue, bone and other supportive tissue. Full thickness skin loss with extensive destruction of underlying tissue and structures. Superficial wound not involving tendon, w/o infection/ischemia capsule or bone Wound Length (cm) 5 Wound Width (cm) 5 Wound Bed Appearance Beefy Red,Blisters Wound Margins Description Well Defined Surrounding Tissue Appearance Purple Surrounding Tissue Temperature Warm Wound Drainage Description Serous Drainage Amount Small Drainage Odor No Odor Dressing Status Dry & Intact Primary Dressing Absorbant Pad Plan/Recommendation Comment Continue to monitor margins of wound and perform unweighting to decrease pressure. Continue with current dressing . Eval Complexity Eval Charge Codes 82248 - High Complexity PHYSICIAN CERTIFICATIO
[2023-07-29 16:59] LABS: POC Glucose,Bedside 139 (70-110)
--- NOTE | 2023-07-29 18:32 | PC.NURSE ---
pt has been asleep majority of the shift. will open eyes at times when daughter speak loudly, also grimacing when repositioned. held po meds this shift, was able to crush x1 med and admin in ice cream. unable to obtain b/p with automatic b/p cuff, manual b/ps attained that were slightly elevated 180s/80s. PRN hydralazine ordered, admin x1. family at bs. bed alarm on for pt safety. no needs/concerns at this time.
[2023-07-29 20:26] LABS: POC Glucose,Bedside 155 (70-110)
[2023-07-30] VITALS (7 sets, daily range): BP systolic 138–194; BP diastolic 60–86; PULSE 63–106; RESP 16–19; TEMP 36.6–37.1; O2SAT 94–98; BMI 30.9
[2023-07-30 07:20] LABS: POC Glucose,Bedside 137 (70-110)
[2023-07-30 09:22] LABS: Anion Gap 7.7 mEq/L (5-15); Blood Urea Nitrogen 32 mg/dl (7-17); Calcium 7.5 mg/dl (8.4-10.2); Carbon Dioxide 19 mmol/L (22.0-30.0); Chloride 109 mmol/L (98-107); Creatinine Clearance Estimated 30 mL/min (50-200); Estimated Glomerular Filt Rate 22 ml/min (>60); GFR (African American) 26 ML/MIN (>60); Glucose 224 mg/dl (74-100); Potassium 3.7 mmoL/L (3.5-5.1); Sodium 132 mmol/L (136-145)
--- NOTE | 2023-07-30 09:46 | EXP.PN ---
Subjective *Date: 07/30/23 *Time: 09:46 Interval history: patient was seen and evaluated at the bedside. denies chest pain, shortness of breath, nausea, vomiting, abdominal pain. Patient does not have any complaints at this time. feels better overall Exam Data for Last 24 hours Vital signs and Labs for Last 24 Hours: Temp Pulse Resp BP Pulse Ox O2 Del Method 98.7 F 90 18 180/84 H 97 Room Air 07/30/23 07:29 07/30/23 07:29 07/30/23 07:29 07/30/23 07:29 07/30/23 07:29 07/30/23 07:29 Laboratory Results - last 24 hr 07/29/23 11:35: POC Glucose 122 H 07/29/23 16:32: POC Glucose 139 H 07/29/23 20:07: POC Glucose 155 H 07/30/23 07:01: POC Glucose 137 H 07/30/23 08:40: Sodium 132 L, Potassium 3.7, Chloride 109 H, Carbon Dioxide 19 L, Anion Gap 7.7, BUN 32 H D, Creatinine 2.20 H, Estimated Creat Clear 30, Estimated GFR 22 L, Est GFR ( Amer) 26 L D, Glucose 224 H, Calcium 7.5 L I & O for Last 24 hours: Intake & Output 07/27/23 07/28/23 07/29/23 07/30/23 23:59 23:59 23:59 23:59 Intake Total 300 / 300 360 / 360 Output Total 0 / 0 0 / 0 Balance 300 / 300 360 / 360 Weight 91.172 kg 84.277 kg 84.277 kg Constitutional Constitutional: no acute distress Comments: appears weak and frail *Routine HEENT Exam Head: Present normocephalic Eye: Present EOMI and PERRL ENT: Present mucous membranes moist *Routine Neck Exam Neck: Present supple; Absent lymphadenopathy *Routine Respiratory Exam Respiratory: Present CTA bilaterally *Routine Cardiovascular Exam Cardiovascular: Present RRR *Routine Abdominal Exam Abdominal: Present soft and normoactive bowel sounds; Absent tenderness *Routine Extremities Exam Extremities: Absent cyanosis, clubbing or edema *Routine Skin Exam Skin: Present warm; Absent rash *Routine Neurological Exam Neurological: Present alert and oriented X3 Assessment and Plan *Assessment and plan (1) Sepsis: Status: Acute Category: Medical Code(s): A41.9 - Sepsis, unspecified organism (2) UTI (urinary tract infection): Status: Acute Category: Medical Code(s): N39.0 - Urinary tract infection, site not specified (3) Acute metabolic encephalopathy: Status: Acute Category: Medical Code(s): G93.41 - Metabolic encephalopathy (4) MASSIMO (acute kidney injury): Status: Acute Category: Medical Code(s): N17.9 - Acute kidney failure, unspecified (5) Stage 4 chronic kidney disease: Status: Chronic Category: Medical Code(s): N18.4 - Chronic kidney disease, stage 4 (severe) (6) Heart failure with recovered ejection fraction (HFrecEF): Status: Acute Category: Medical Code(s): I50.32 - Chronic diastolic (congestive) heart failure (7) Diabetes mellitus: Status: Resolved Qualifiers: Diabetes mellitus type: other specified (including GORDON) Diabetes mellitus snf insulin use: unspecified snf insulin use status Diabetes mellitus complication status: with other specified complication Qualified Code(s): E13.69 - Other specified diabetes mellitus with other specified complication Category: Medical Code(s): E11.9 - Type 2 diabetes mellitus without complications Plan This is a 72-year-old female who presents to [facility] emergency department accompanied by her daughter for concerns of altered mental status. Her ED presenting vitals identified uncontrolled blood pressure with abnormal urinalysis and concerns for urosepsis. Problems addressed as follows: Sepsis, POA UTI Acute metabolic encephalopathy - improving cont iv fluids Blood cultures pending - ngtd Urine culture pending - ngtd ED urinalysis reviewed IV antibiotic therapy Rocephin 2 g daily Previous urine culture with Klebsiella and bahena sensitivity noted ED CT head with no acute disease Hypertensive urgency Hypertension Routine blood pressure monitoring
[2023-07-30 10:57] LABS: Basophils % 0.3 % (0.1-2.0); Eosinophils # 0.1 K/mm3 (0.0-0.4); Eosinophils % 0.8 % (0.1-12.0); Hematocrit 53.6 % (37.0-47.0); Hemoglobin 17.3 g/dL (12.2-16.2); Lymphocytes % 14.1 % (10-50); Mean Corpuscular HGB Conc 32.3 g/dL (31.8-35.4); Mean Corpuscular Hemoglobin 32.4 pg (27.0-31.2); Mean Corpuscular Volume 100.3 fl (81-99); Mean Platelet Volume 8.7 fl (7.4-10.4); Monocytes # 0.4 K/mm3 (0.1-1.0); Monocytes % 6.3 % (1.7-9.3); Neutrophils # 5.4 K/mm3 (1.8-7.8); Neutrophils % 78.5 % (37.0-80.0); Platelet Count 90 K/mm3 (142-424); Red Blood Count 5.34 M/mm3 (4.20-5.40); Red Cell Distribution Width 14.4 % (11.5-17.5); White Blood Count 6.8 K/mm3 (4.8-10.8)
--- NOTE | 2023-07-30 13:43 | SW/DCPLANNER ---
Addendum entered by [facility] 08/03/23 10:44: I have updated Rena rivas/ Adonay Mcknight that patient is medically stable for discharge today. Addendum entered by [facility] 08/03/23 09:14: Updated patient information has been faxed to Rena rivas/ Adonay Mcknight. Addendum entered by [facility] 08/03/23 08:08: Per Rena patient was approved SNF level of care on 08/01: MD updated and stated that due to positive blood cultures patient is not ready for discharge. I will follow up w/ and Adonay Mcknight this AM. Addendum entered by [facility] 07/31/23 12:48: Rena rivas/ Adonay Mcknight stated they are starting a precert for this patient. I will update patient, family and MD. Addendum entered by [facility] 07/30/23 15:40: she will be onsite tomorrow to evaluate this patient. Addendum entered by [facility] 07/30/23 15:40: Rena with [facility]onay Mcknight stated s Addendum entered by [facility] 07/30/23 15:39: Rena rivas/ Original Note: I spoke w/ patient and her family regarding plans once medically stable for discharge. Patient currently resides at home w/ family. PT/OT evaluated patient and recommended SNF level of care. Patient is unable to communicate at this time but family request that information be faxed to Adonay Mcknight. Rena Mcknight stated that she does have female beds available. Patient information has been faxed at this time.
--- NOTE | 2023-07-30 13:59 | HMH.PTEV ---
Physical Therapy Evaluation Rehab PT IP Evaluation Start: 07/30/23 09:45 Freq: ONCE Status: Active Protocol: Document 07/30/23 13:52 LUPE (Rec: 07/30/23 13:58 LUPE [id number]) Subjective/History History History Patient is a 72 year old female admitted to [facility] secondary to UTI and AMS. Previously seen by PT for wound care for pressure sore. She was previously ambulatory with RW at home, where she lives with her 2 daughters. She requires assistance with all ADL's/IADL's. No verbal communication from patient during evaluation. Subjective Subjective Patient caregiver reports that patient has leaned up in bed and eaten. New diagnosis of cancer in past 12 No months? Rehab PT IP Eval Objective Appearance Patient Behavior Sedated,Confused Difficulty following instructions severe Speech Pattern No Speech Ambulation Patient Able to Ambulate No Balance Sitting Balance Leans or slides in chair Dynamic Sitting Balance Ability Poor Transfers Bed Transfer Ability Total/Dependent (100%) ROM All Extremities PT ROM Status WFL MMT All Extremities PT MMT WFL Rehab PT IP prob,goals,plan Problems Date of Evaluation: 07/29/23 PT IP Problems Bed Mobility,Transfers,Gait, Balance,Self care,Safety Rehab Potential Rehab Potential Poor Plan PT Intervention Plan Bed Mobility,Transfers,Gait, Balance,Self care,Safety, Therapeutic Exercise PT Plan Frequency BID Duration LOS Discharge Goals Bed Transfer Ability Maximum x 2 (75% assist) Sit to Stand Chair Transfer Ability Maximum x 2 (75% assist) Ambulation Assistive Device Rolling Walker Ambulation Distance (feet) 10 Discharge Plan PT Discharge Plan PT suggests patient would benefit from transition to SNF for further rehab once found medically stable by MD. Caregivers agreed. Eval Complexity Eval Charge Codes 02293 - High Complexity PHYSICIAN CERTIFICATION: I certify the specified therapy services for Lyndsey
--- NOTE | 2023-07-30 14:00 | HMH.OTEV ---
OT Inpatient Evaluation Rehab OT IP Evaluation Start: 07/30/23 09:45 Freq: ONCE Status: Active Protocol: Document 07/30/23 13:50 [facility] (Rec: 07/30/23 14:00 [facility] [id number]) Rehab OT IP Assessment Subjective History Pt does not answer any questions upon entering the room. All information was provided by daughters who are present in the room during evaluation. Pt admitted on for UTI and AMS. Patient is a 72-year-old female that presents to [facility] emergency department accompanied by her daughter for altered mental status for greater than 8 hours. Her daughter provides the history. Daughter reports that the patient lives with her 2 daughters and grandson and will occasionally help with cooking. She normally takes her own medications including her chronically prescribed opioid. Daughter identified a change in her mental status that would wax and wane with no associated falls, syncope or identified dysarthria. They presented to the ED for evaluation. In the ED her presenting blood pressure was 208/93 with initial tachycardia that responded to beta-dhara therapy. A CT of the head identified no acute disease and her laboratory studies identified a leukocytoses and abnormal urinalysis. She was assessed with urosepsis out of the ED. We were consulted for hospital admission. Prior to being in the hospital , pt lived at home with her daughters and was normally independent with all ADLs. However she was dependent on
[2023-07-30 23:18] LABS: POC Glucose,Bedside 241 (70-110)
[2023-07-30 23:18] LABS: POC Glucose,Bedside 234 (70-110)
[2023-07-30 23:18] LABS: POC Glucose,Bedside 178 (70-110)
[2023-07-31] VITALS (7 sets, daily range): BP systolic 124–170; BP diastolic 49–77; PULSE 72–107; RESP 16–20; TEMP 36.5–36.9; O2SAT 97–98; BMI 31.5
[2023-07-31 06:01] LABS: Basophils % 0.2 % (0.1-2.0); Eosinophils # 0.2 K/mm3 (0.0-0.4); Eosinophils % 1.3 % (0.1-12.0); Hematocrit 39.8 % (37.0-47.0); Lymphocytes # 2.4 K/mm3 (0.7-4.5); Lymphocytes % 15.4 % (10-50); Mean Corpuscular HGB Conc 32.5 g/dL (31.8-35.4); Mean Corpuscular Hemoglobin 31.7 pg (27.0-31.2); Mean Corpuscular Volume 97.6 fl (81-99); Mean Platelet Volume 8.8 fl (7.4-10.4); Monocytes % 6.6 % (1.7-9.3); Neutrophils # 11.6 K/mm3 (1.8-7.8); Neutrophils % 76.3 % (37.0-80.0); Platelet Count 189 K/mm3 (142-424); Red Blood Count 4.08 M/mm3 (4.20-5.40); Red Cell Distribution Width 14.2 % (11.5-17.5); White Blood Count 15.2 K/mm3 (4.8-10.8)
[2023-07-31 06:07] LABS: MANUAL DIFFERENTIAL MANUAL DIFFERENTIAL (MANUAL DIFF)
[2023-07-31 06:13] LABS: Chloride 108 mmol/L (98-107); Potassium 3.5 mmoL/L (3.5-5.1); Sodium 132 mmol/L (136-145)
[2023-07-31 06:14] LABS: Lymphocytes % 13 % (10-50); Monocytes % 6 % (2-9); Neutrophils % 81 % (42-76); Total Cells Counted 100
[2023-07-31 06:15] LABS: Macrocytosis 1+; Platelet Estimate Normal
[2023-07-31 06:16] LABS: Blood Urea Nitrogen 32 mg/dl (7-17); Creatinine Clearance Estimated 28 mL/min (50-200); Estimated Glomerular Filt Rate 20 ml/min (>60); GFR (African American) 24 ML/MIN (>60)
[2023-07-31 06:17] LABS: Anion Gap 8.5 mEq/L (5-15); Calcium 7.9 mg/dl (8.4-10.2); Carbon Dioxide 19 mmol/L (22.0-30.0); Glucose 148 mg/dl (74-100)
[2023-07-31 06:32] LABS: POC Glucose,Bedside 144 (70-110)
--- NOTE | 2023-07-31 08:30 | PC.NURSE ---
PT DEMANDS THAT DIETARY STAFF STOP BRINGING GLUCERNA WITH TRAYS. REMOVED GLUCERNA FROM DIET ORDER.
--- NOTE | 2023-07-31 09:34 | DIET.NUTRFU ---
Addendum entered by Emilia Briggs RD, LD 07/31/23 15:12: RD saw patient after lunch with daughter present and she reported that the patient enjoyed and consumed 100% of pineapple milkshake daughter requested for lunch. WASHING MACHINE OPERATOR also saw patient and downgraded to MSOFT ground diet, provided new menus for daughter to review, also left the homemade shake available to choose if patient continues to like it for extra calories and protein. This will help with wound healing. Also reviewed latex allergy, banana are on the avoid list with patients with latex allergy, family said she eats bananas with no adverse reaction and would like to be able to have during her stay Original Note: RD spoke to daughter about the menu selections. Family had two many carbs chosen for lunch and dinner. The patient is on a 1800 ADA diet. Patient is also noted to have skin breakdown and this RD explained how important additional protein is. Patient dislikes glucerna but agreed to drink a homemade milkshake for lunch. Meal intake continue to be poor 25% noted most of yesterday, today for breakfast she consumed 100% of cold cereal and most of eggs and only a couple bites of gravy and biscuits. Therapy is evaluating today to determine discharge plan to rehab at [facility] or home with Daughters. LBM noted on 07/30. Continues on ABT tx and NaCl via IVF. Labs reviewed from 07/31. Will continue to follow meal intake
--- NOTE | 2023-07-31 10:05 | PC.NURSE ---
DURING MORNING MEDICATION ADMINISTRATION PT TOLERATED 1ST PILL WELL. 2 MEDICATION PATIENT CHOCKED AND SPIT PILL OUT. PT REFUSED TO TAKE ADDITIONAL MEDICATIONS. DR RIVERA MADE AWARE.
--- NOTE | 2023-07-31 12:45 | HMH.SLDYSPHA ---
Speech & Language Evaluation Speech/Language Dysphagia Evaluation Start: 07/31/23 12:36 Freq: ONCE Status: Active Protocol: Document 07/31/23 12:37 DANAE (Rec: 07/31/23 12:44 [email or web address] [id number]) Dysphagia Assess/Goals/Plan Assessment Date of Evaluation: 07/31/23 Evaluation Type Initial Certification Assessment/Problems dysphagia per MD order Does Patient Qualify for Service No Qualify/Failure Comment Based on CSE results, mastication/manipulation of bolus and swallowing appear to be WFL, no further skilled speech therapy services are warranted at this time. Recommendations PHYSICIAN CERTIFICATION: The specified therapy services are required, authorized, and reviewed every 30 days. Diet Recommendations Mechanical Soft Liquid Type Recommendations Normal/Thin SL Swallow Guidelines Alt bite w/sip thru meal, Standard Aspiration Prec.,Chk mough for pocketing,Crush meds as allowed*,Eat at slow rate Crush Meds Crush all meds Dysphagia Swallow Precautions/Strategies Sitting Upright (90 deg),Small Bites and Sips,Alternate Liquids/Solids Place Food on Either side of Mouth Plan Pt/Guardian verbally ack understanding Yes of dx/prognosis/goals G -code Required No Education Instructions provided Discussed CSE results, aspiration precautions, and diet recommendations with pt and her daughter and care management all of which expressed understanding. Pt/Caregiver able to recall information Able to recall/restate Speech & Language HPI History Present Illness Description of Patient Problem 72-year-old female who arrived in ED on 07/29/23 for altered mental status. Daughter identified a change in her mental status that would wax and wane with no associated falls, syncope or identified dysarthria. In the ED her presenting blood pressure was 208/93 with initial tachycardia that responded to beta-dhara therapy. A CT of the head identified no acute disease and her laboratory studies id
[2023-07-31 16:34] LABS: POC Glucose,Bedside 218 (70-110)
[2023-07-31 16:34] LABS: POC Glucose,Bedside 337 (70-110)
--- NOTE | 2023-07-31 16:48 | EXP.PN ---
Subjective *Date: 07/31/23 *Time: 16:48 Interval history: patient was seen and evaluated at the bedside. more alert and awake today, denies chest pain, shortness of breath, nausea, vomiting, abdominal pain. Exam Data for Last 24 hours Vital signs and Labs for Last 24 Hours: Temp Pulse Resp BP Pulse Ox O2 Del Method 97.8 F 77 20 150/60 H 97 Room Air 07/31/23 15:48 07/31/23 15:48 07/31/23 15:48 07/31/23 15:48 07/31/23 15:48 07/31/23 16:37 Laboratory Results - last 24 hr 07/30/23 11:39: POC Glucose 234 H 07/30/23 16:14: POC Glucose 241 H 07/30/23 19:46: POC Glucose 178 H 07/31/23 05:55: WBC 15.2 H D, RBC 4.08 L, Hgb 13.0 D, Hct 39.8, MCV 97.6, MCH 31.7 H, MCHC 32.5, RDW 14.2, Plt Count 189 D, MPV 8.8, Neut % (Auto) 76.3, Lymph % (Auto) 15.4, [place] % (Auto) 6.6, Eos % (Auto) 1.3, Baso % (Auto) 0.2, Neut # (Auto) 11.6 H, Lymph # (Auto) 2.4, [place] # (Auto) 1.0, Eos # (Auto) 0.2, Baso # (Auto) 0.0, Total Counted 100, Neutrophils % (Manual) 81 H, Lymphocytes % (Manual) 13, Monocytes % (Manual) 6, Platelet Estimate Normal, Macrocytosis 1+, Sodium 132 L, Potassium 3.5, Chloride 108 H, Carbon Dioxide 19 L, Anion Gap 8.5, BUN 32 H, Creatinine 2.40 H, Estimated Creat Clear 28, Estimated GFR 20 L, Est GFR ( Amer) 24 L, Glucose 148 H D, Calcium 7.9 L 07/31/23 06:12: POC Glucose 144 H 07/31/23 11:37: POC Glucose 218 H 07/31/23 16:19: POC Glucose 337 H* I & O for Last 24 hours: Intake & Output 07/28/23 07/29/23 07/30/23 12/01/23 23:59 23:59 23:59 23:59 Intake Total 300 / 300 720 / 1120 940 / 940 Output Total 0 / 0 0 / 0 0 / 0 Balance 300 / 300 720 / 1120 940 / 940 Weight 91.172 kg 84.277 kg 84.277 kg 85.91 kg Microbiology Reports for the Last 24 Hours: Microbiology 07/28/23 22:20 Urine,Clean Catch Urine Culture - Preliminary Constitutional Constitutional: no acute distress Comments: appears weak and frail *Routine HEENT Exam Head: Present normocephalic Eye: Present EOMI and PERRL ENT: Present mucous membranes moist *Routine Neck Exam Neck: Present supple; Absent lymphadenopathy *Routine Respiratory Exam Respiratory: Present CTA bilaterally *Routine Cardiovascular Exam Cardiovascular: Present RRR *Routine Abdominal Exam Abdominal: Present soft and normoactive bowel sounds; Absent tenderness *Routine Extremities Exam Extremities: Absent cyanosis, clubbing or edema *Routine Skin Exam Skin: Present warm; Absent rash *Routine Neurological Exam Neurological: Present alert Comments: AAx2 Assessment and Plan *Assessment and plan (1) Sepsis: Status: Acute Category: Medical Code(s): A41.9 - Sepsis, unspecified organism (2) UTI (urinary tract infection): Status: Acute Category: Medical Code(s): N39.0 - Urinary tract infection, site not specified (3) Acute metabolic encephalopathy: Status: Acute Category: Medical Code(s): G93.41 - Metabolic encephalopathy (4) MASSIMO (acute kidney injury): Status: Acute Category: Medical Code(s): N17.9 - Acute kidney failure, unspecified (5) Stage 4 chronic kidney disease: Status: Chronic Category: Medical Code(s): N18.4 - Chronic kidney disease, stage 4 (severe) (6) Heart failure with recovered ejection fraction (HFrecEF): Status: Acute Category: Medical Code(s): I50.32 - Chronic diastolic (congestive) heart failure (7) Diabetes mellitus: Status: Resolved Qualifiers: Diabetes mellitus type: other specified (including GORDON) Diabetes mellitus assisted insulin use: unspecified assisted insulin use status Diabetes mellitus complication status: with other specified complication Qualified Code(s): E13.69 - Other specified diabetes mellitus with other specified complication Category: Medical Code(s): E11.9 - Type 2 diabetes mellitus without complications Plan This is a 72-year-old female who presents to
[2023-07-31 19:52] LABS: POC Glucose,Bedside 152 (70-110)
[2023-08-01] VITALS: BP 136/54; PULSE 70; RESP 18; TEMP 36.9; O2SAT 97
[2023-08-01 04:00] VITALS: BP 156/69; PULSE 69; RESP 16; TEMP 36.6; O2SAT 98; BMI 31.6
--- NOTE | 2023-08-01 05:29 | PC.NURSE ---
notified supervisor abattoir of positive blood cx
[2023-08-01 06:31] LABS: POC Glucose,Bedside 105 (70-110)
[2023-08-01 08:00] VITALS: BP 142/70; PULSE 71; RESP 18; TEMP 36.6; O2SAT 99
--- NOTE | 2023-08-01 08:25 | EXP.PHA.CONS ---
Pharmacy Consult Date: 08/01/23 Time: 08:25 Referring provider: DR. RIVERA Reason for Consult:: VANCOMYCIN DOSING Allergies Allergy/AdvReac Type Severity Reaction Status Date / Time fentanyl [FENTANYL] Allergy Unknown Verified 08/18/22 09:32 latex [LATEX] Allergy Unknown Verified 08/18/22 09:32 codeine AdvReac Unknown Verified 08/18/22 09:32 Home Medications Medication Instructions Recorded Confirmed Type aspirin 81 mg tablet,delayed 81 mg PO DAILY Heart disease 09/17/17 07/29/23 History release (Adult Low Dose Aspirin) clopidogrel 75 mg tablet 75 mg PO DAILY 09/17/17 07/29/23 History sitagliptin phosphate 50 mg tablet 50 mg PO DAILY Diabetes 09/17/17 07/29/23 History (Januvia) famotidine 20 mg tablet 20 mg PO BID Acid reflux 09/18/17 07/29/23 History pravastatin 80 mg tablet 80 mg PO HS Cholesterol 05/28/18 07/29/23 History citalopram 20 mg tablet 20 mg PO DAILY Depression 90 days 09/16/18 07/29/23 History cholecalciferol (vitamin D3) 25 1,000 unit PO DAILY Supplement 05/12/19 07/29/23 History mcg (1,000 unit) tablet losartan 100 mg tablet 100 mg PO DAILY Hypertension 10/04/19 07/29/23 History insulin NPH-regular 70-30 U-100 20 unit SQ BID Diabetes 02/09/20 07/29/23 History insulin 100 unit/mL subcutaneous pen carvedilol 12.5 mg tablet 12.5 mg PO BID 10/23/20 07/29/23 History ferrous sulfate 325 mg (65 mg 325 mg PO DAILY supplement 07/09/22 07/29/23 History iron) tablet pantoprazole 40 mg tablet,delayed 40 mg PO HS 06/25/23 07/29/23 History release tramadol 50 mg tablet 50 mg PO TIDP PRN Pain 06/25/23 07/29/23 History gabapentin 300 mg capsule 300 mg PO TID #30 caps 06/26/23 07/29/23 Rx albuterol sulfate 90 mcg/actuation 2 puff inhalation Q6HP PRN 07/29/23 07/29/23 History aerosol inhaler Shortness Of Breath cetirizine 10 mg tablet 10 mg PO DAILY 07/29/23 07/29/23 History cyanocobalamin (vitamin B-12) 1,000 mcg IM MONTHLY 07/29/23 07/29/23 History 1,000 mcg/mL injection solution prednisone 20 mg tablet 20 mg PO DAILY 07/29/23 07/29/23 History New Prescriptions to Start Prescriptions: Height: 1.65 m Weight: 86.137 kg Laboratory Results:: Laboratory Results - last 24 hr 07/31/23 11:37: POC Glucose 218 H 07/31/23 16:19: POC Glucose 337 H* 07/31/23 19:43: POC Glucose 152 H 08/01/23 06:22: POC Glucose 105 Medical History: Medical History (Updated 07/29/23 @ 00:28 by Bart Rashid MD) Anemia, chronic renal failure Cardiomyopathy CHF (congestive heart failure) Coronary artery disease Diabetes mellitus Edema Hyperlipidemia Hypertension Stage 4 chronic kidney disease Assessment and Plan Assessment and plan all Dx Assessment and Plan for all problems:: Pharmacokinetic dosing service Objective: Patient: Floor: Age: 72 yo Serum creatinine: 2.40 mg/dL Height: 65.0 Inches Weight (kg): 86.1 Assessment: IBW (kg): 57.00 Dosing wt(kg): 86.1 Estimated Creatinine clearance (ml/min): 18.5 CRCL method: Cockcroft and Gault using ibw(default). Drug selected: Vancomycin Loading dose (mg): Vd (liters): 68.9 (factor used: 0.8 L/kg) Will (hr-1): 0.020 Half life (hrs): 34.66 CLvanco=?? 1.378 L/hr Recommended dose: 1500 mg Interval: 48 hrs Infusion time (hrs): 2.0 Predicted peak (mcg/mL): 34.6 Predicted trough (mcg/mL): 13.79 Total body weight is being used for vancomycin dosing. Recommendations: Give Vancomycin 1500 mg q 48 hrs with an expected Cpeak of 34.6 mcg/ml and an expected Ctrough of 13.79 mcg/ml AUC 0-24 /FLACO Data: FLACO 0.5 mcg/mL:?? AUC/FLACO:? 1088.5 FLACO 1.0 mcg/mL:?? AUC/FLACO:? 544.3 --------- FLACO 1.5 mcg/mL:?? AUC/FLACO:? 362.8 FLACO 2.0 mcg/mL:?? AUC/FLACO:? 272.1 Thank you for the consult, will continue to follow. -DAVIAN
[2023-08-01 10:32] LABS: POC Glucose,Bedside 177 (70-110)
--- NOTE | 2023-08-01 11:25 | XR_ITS ---
PROCEDURE INFORMATION: Exam: XR Chest Exam date and time: 08/01/2023 11:44 AM Age: 72 years old Clinical indication: Wheezing; Additional info: Whezzing TECHNIQUE: Imaging protocol: Radiologic exam of the chest. Views: 1 view. COMPARISON: CR XR CHEST PORTABLE 07/28/2023 10:25 PM FINDINGS: Tubes, catheters and devices: Pacemaker device Lungs: Persistent region of opacification left lung base. Probable atelectasis. Findings unchanged. Mild regions of bronchiectasis right lung base. Accompanying peribronchial thickening compatible with bronchitis. Pleural spaces: Unremarkable. No pleural effusion. No pneumothorax. Heart/Mediastinum: Unremarkable. No cardiomegaly. Diaphragm: Mild elevation left hemidiaphragm. Bones/joints: Unremarkable. IMPRESSION: 1. Persistent region of opacification left lung base. Probable atelectasis. Findings unchanged. 2. Mild regions of bronchiectasis right lung base. Accompanying peribronchial thickening compatible with bronchitis.
[2023-08-01 11:41] LABS: Chloride 109 mmol/L (98-107); Sodium 132 mmol/L (136-145)
[2023-08-01 11:42] LABS: Potassium 3.6 mmoL/L (3.5-5.1)
[2023-08-01 11:44] LABS: Blood Urea Nitrogen 34 mg/dl (7-17); Creatinine Clearance Estimated 32 mL/min (50-200); Estimated Glomerular Filt Rate 23 ml/min (>60); GFR (African American) 28 ML/MIN (>60)
[2023-08-01 11:45] LABS: Anion Gap 6.6 mEq/L (5-15); Calcium 7.5 mg/dl (8.4-10.2); Carbon Dioxide 20 mmol/L (22.0-30.0); Glucose 160 mg/dl (74-100)
[2023-08-01 12:00] VITALS: BP 128/54; PULSE 71; RESP 20; TEMP 37.4; O2SAT 92
[2023-08-01 12:07] LABS: POC Glucose,Bedside 168 (70-110)
--- NOTE | 2023-08-01 15:07 | EXP.PN ---
Subjective *Date: 08/01/23 *Time: 15:07 Interval history: patient was seen and evaluated at the bedside. more alert and awake today, denies chest pain, shortness of breath, nausea, vomiting, abdominal pain. Exam Data for Last 24 hours Vital signs and Labs for Last 24 Hours: Temp Pulse Resp BP Pulse Ox O2 Del Method 99.3 F 71 20 128/54 L 92 L Room Air 08/01/23 12:00 08/01/23 12:00 08/01/23 12:00 08/01/23 12:00 08/01/23 12:00 08/01/23 12:00 Laboratory Results - last 24 hr 07/31/23 11:37: POC Glucose 218 H 07/31/23 16:19: POC Glucose 337 H* 07/31/23 19:43: POC Glucose 152 H 08/01/23 06:22: POC Glucose 105 08/01/23 10:19: POC Glucose 177 H 08/01/23 11:14: Sodium 132 L, Potassium 3.6, Chloride 109 H, Carbon Dioxide 20 L, Anion Gap 6.6, BUN 34 H, Creatinine 2.10 H, Estimated Creat Clear 32, Estimated GFR 23 L, Est GFR ( Amer) 28 L, Glucose 160 H, Calcium 7.5 L 08/01/23 11:47: POC Glucose 168 H I & O for Last 24 hours: Intake & Output 07/29/23 07/30/23 07/31/23 08/01/23 23:59 23:59 23:59 23:59 Intake Total 300 / 300 720 / 1120 1060 / 1860 1760 / 1760 Output Total 0 / 0 0 / 0 0 / 0 0 / 0 Balance 300 / 300 720 / 1120 1060 / 1860 1760 / 1760 Weight 84.277 kg 84.277 kg 85.91 kg 86.137 kg Microbiology Reports for the Last 24 Hours: Microbiology 07/28/23 23:20 Blood Blood Culture - Preliminary 07/28/23 23:20 Blood Blood Culture - Preliminary 07/28/23 22:20 Urine,Clean Catch Urine Culture - Preliminary Constitutional Constitutional: no acute distress Comments: appears weak and frail *Routine HEENT Exam Head: Present normocephalic Eye: Present EOMI and PERRL ENT: Present mucous membranes moist *Routine Neck Exam Neck: Present supple; Absent lymphadenopathy *Routine Respiratory Exam Respiratory: Present CTA bilaterally *Routine Cardiovascular Exam Cardiovascular: Present RRR *Routine Abdominal Exam Abdominal: Present soft and normoactive bowel sounds; Absent tenderness *Routine Extremities Exam Extremities: Absent cyanosis, clubbing or edema *Routine Skin Exam Skin: Present warm; Absent rash *Routine Neurological Exam Neurological: Present alert Comments: AAx2 Assessment and Plan *Assessment and plan (1) Sepsis: Status: Acute Category: Medical Code(s): A41.9 - Sepsis, unspecified organism (2) UTI (urinary tract infection): Status: Acute Category: Medical Code(s): N39.0 - Urinary tract infection, site not specified (3) Acute metabolic encephalopathy: Status: Acute Category: Medical Code(s): G93.41 - Metabolic encephalopathy (4) MASSIMO (acute kidney injury): Status: Acute Category: Medical Code(s): N17.9 - Acute kidney failure, unspecified (5) Stage 4 chronic kidney disease: Status: Chronic Category: Medical Code(s): N18.4 - Chronic kidney disease, stage 4 (severe) (6) Heart failure with recovered ejection fraction (HFrecEF): Status: Acute Category: Medical Code(s): I50.32 - Chronic diastolic (congestive) heart failure (7) Diabetes mellitus: Status: Resolved Qualifiers: Diabetes mellitus type: other specified (including GORDON) Diabetes mellitus detention insulin use: unspecified exterminator helper termite insulin use status Diabetes mellitus complication status: with other specified complication Qualified Code(s): E13.69 - Other specified diabetes mellitus with other specified complication Category: Medical Code(s): E11.9 - Type 2 diabetes mellitus without complications Plan This is a 72-year-old female who presents to [facility] emergency department accompanied by her daughter for concerns of altered mental status. Her ED presenting vitals identified uncontrolled blood pressure with abnormal urinalysis and concerns for urosepsis. Sepsis, POA UTI Acute metabolic encephalopathy - improving cont iv fluids, c
[2023-08-01 16:00] VITALS: BP 132/94; PULSE 69; RESP 20; TEMP 37.2; O2SAT 97
[2023-08-01 16:00] LABS: POC Glucose,Bedside 191 (70-110)
--- NOTE | 2023-08-01 18:30 | PC.NURSE ---
MORE ALERT TODAY THAN YESTERDAY. TOLERATING PO INTAKE WELL WITH ASSISTANCE FOR MEALS. ALSO TOLERATED MEDICATIONS BETTER TODAY. NEW DRESSINGS TO COCCYX WOUND NEEDED. [id number].
[2023-08-01 20:00] VITALS: BP 150/61; PULSE 71; RESP 18; TEMP 37; O2SAT 96
[2023-08-01 20:43] LABS: POC Glucose,Bedside 217 (70-110)
--- NOTE | 2023-08-01 21:20 | PC.NURSE ---
During assessment it was noted fluids was infusing at 50ml/hr. fluids was titrated up to 100ml/hr as order states.
[2023-08-01 23:29] LABS: POC Glucose,Bedside 190 (70-110)
[2023-08-02] VITALS (10 sets, daily range): BP systolic 144–187; BP diastolic 58–78; PULSE 70–82; RESP 17–18; TEMP 36.5–37.1; O2SAT 96–98; BMI 33.2
--- NOTE | 2023-08-02 00:40 | PC.NURSE ---
Patient started complaining of shortness of breath and i feel jittery lungs sound clear, FSBS is 190, vitals are stable. Fluids was titrated back to 50ml/hr. Called respiratory for PRN duoneb
--- NOTE | 2023-08-02 01:05 | PC.NURSE ---
Respriotry busy at this time, so this nurse administered one duoneb as ordered.
--- NOTE | 2023-08-02 01:30 | PC.NURSE ---
Reassessment of patient: patient states she feels better. No s/sx of distress noted.
--- NOTE | 2023-08-02 04:45 | PC.NURSE ---
Patient rested well this shift. Requested one PRN breathing treatment due to feeling short of breath, relief provided. Patients lungs are clear bilateral with diminished bases. Bowel sounds active X 4, adequate urinary output. Patient was alert and oriented to name, place, and situation with occasional confusion. Patients left arm started weeping clear fluid, gauze wrap was applied to absorb fluid, left arm remains to have +3 pitting edema. Patient complains of pain to bilateral arms. Patient is a two person full assist with turn, reposition and pericare. Abdominal folds remain red nystatin applied per order. Buttock has a small blister. Patient took medications whole, with no complications. No acute changes noted this shift.
--- NOTE | 2023-08-02 05:53 | PC.NURSE ---
Blood pressure elevate to 187 systolic. PRN medication given as ordered
--- NOTE | 2023-08-02 06:08 | PC.NURSE ---
Patients finger stick was 60. Patien t is awake and alert c/o headache. 120ml of orange juice provided. Will recheck in 15 minutes
[2023-08-02 06:13] LABS: POC Glucose,Bedside 60 (70-110)
--- NOTE | 2023-08-02 07:07 | PC.NURSE ---
After 120ml of OJ patients FSBS went up to 87, no c/o headache. After hydralizine administered BP has decreased to systolic 147
[2023-08-02 07:13] LABS: POC Glucose,Bedside 86 (70-110)
[2023-08-02 07:35] LABS: Chloride 112 mmol/L (98-107); Potassium 3.9 mmoL/L (3.5-5.1); Sodium 133 mmol/L (136-145)
[2023-08-02 07:38] LABS: Blood Urea Nitrogen 35 mg/dl (7-17); Creatinine Clearance Estimated 32 mL/min (50-200); Estimated Glomerular Filt Rate 22 ml/min (>60); GFR (African American) 26 ML/MIN (>60)
[2023-08-02 07:39] LABS: Anion Gap 6.9 mEq/L (5-15); Calcium 7.3 mg/dl (8.4-10.2); Carbon Dioxide 18 mmol/L (22.0-30.0); Glucose 90 mg/dl (74-100)
[2023-08-02 09:28] LABS: Basophils % 0.3 % (0.1-2.0); Eosinophils # 0.4 K/mm3 (0.0-0.4); Eosinophils % 3.5 % (0.1-12.0); Hematocrit 30.9 % (37.0-47.0); Hemoglobin 10.6 g/dL (12.2-16.2); Lymphocytes # 1.2 K/mm3 (0.7-4.5); Lymphocytes % 11.4 % (10-50); Mean Corpuscular HGB Conc 34.4 g/dL (31.8-35.4); Mean Corpuscular Hemoglobin 33.1 pg (27.0-31.2); Mean Corpuscular Volume 96.4 fl (81-99); Mean Platelet Volume 9.1 fl (7.4-10.4); Monocytes # 0.6 K/mm3 (0.1-1.0); Monocytes % 5.7 % (1.7-9.3); Neutrophils # 8.6 K/mm3 (1.8-7.8); Neutrophils % 79.2 % (37.0-80.0); Platelet Count 152 K/mm3 (142-424); Red Blood Count 3.21 M/mm3 (4.20-5.40); Red Cell Distribution Width 14.3 % (11.5-17.5); White Blood Count 10.9 K/mm3 (4.8-10.8)
[2023-08-02 11:43] LABS: POC Glucose,Bedside 139 (70-110)
[2023-08-02 12:20] LABS: POC Glucose,Bedside 159 (70-110)
--- NOTE | 2023-08-02 14:42 | EXP.PN ---
Subjective *Date: 08/02/23 *Time: 14:42 Interval history: patient was seen and evaluated at the bedside. more alert and awake today, denies chest pain, shortness of breath, nausea, vomiting, abdominal pain. Exam Data for Last 24 hours Vital signs and Labs for Last 24 Hours: Temp Pulse Resp BP Pulse Ox O2 Del Method 97.8 F 80 18 165/75 H 96 Room Air 08/02/23 12:00 08/02/23 12:00 08/02/23 12:00 08/02/23 12:00 08/02/23 12:00 08/02/23 12:00 Laboratory Results - last 24 hr 08/01/23 15:45: POC Glucose 191 H 08/01/23 20:32: POC Glucose 217 H 08/01/23 23:21: POC Glucose 190 H 08/02/23 05:58: POC Glucose 60 L 08/02/23 06:45: Sodium 133 L, Potassium 3.9, Chloride 112 H, Carbon Dioxide 18 L, Anion Gap 6.9, BUN 35 H, Creatinine 2.20 H, Estimated Creat Clear 32, Estimated GFR 22 L, Est GFR ( Amer) 26 L, Glucose 90 D, Calcium 7.3 L 08/02/23 07:02: POC Glucose 86 08/02/23 09:19: WBC 10.9 H D, RBC 3.21 L, Hgb 10.6 L, Hct 30.9 L, MCV 96.4, MCH 33.1 H, MCHC 34.4, RDW 14.3, Plt Count 152, MPV 9.1, Neut % (Auto) 79.2, Lymph % (Auto) 11.4, [place] % (Auto) 5.7, Eos % (Auto) 3.5, Baso % (Auto) 0.3, Neut # (Auto) 8.6 H, Lymph # (Auto) 1.2, [place] # (Auto) 0.6, Eos # (Auto) 0.4, Baso # (Auto) 0.0 08/02/23 09:31: POC Glucose 139 H 08/02/23 12:02: POC Glucose 159 H I & O for Last 24 hours: Intake & Output 07/30/23 07/31/23 08/01/23 08/02/23 23:59 23:59 23:59 23:59 Intake Total 720 / 1120 1060 / 1860 2240 / 2660 1330 / 1330 Output Total 0 / 0 0 / 0 0 / 0 0 / 0 Balance 720 / 1120 1060 / 1860 2240 / 2660 1330 / 1330 Weight 84.277 kg 85.91 kg 86.137 kg 90.35 kg Constitutional Constitutional: no acute distress Comments: appears weak and frail *Routine HEENT Exam Head: Present normocephalic Eye: Present EOMI and PERRL ENT: Present mucous membranes moist *Routine Neck Exam Neck: Present supple; Absent lymphadenopathy *Routine Respiratory Exam Respiratory: Present CTA bilaterally *Routine Cardiovascular Exam Cardiovascular: Present RRR *Routine Abdominal Exam Abdominal: Present soft and normoactive bowel sounds; Absent tenderness *Routine Extremities Exam Extremities: Absent cyanosis, clubbing or edema *Routine Skin Exam Skin: Present warm; Absent rash *Routine Neurological Exam Neurological: Present alert Comments: AAx2 Assessment and Plan *Assessment and plan (1) Sepsis: Status: Acute Category: Medical Code(s): A41.9 - Sepsis, unspecified organism (2) UTI (urinary tract infection): Status: Acute Category: Medical Code(s): N39.0 - Urinary tract infection, site not specified (3) Acute metabolic encephalopathy: Status: Acute Category: Medical Code(s): G93.41 - Metabolic encephalopathy (4) MASSIMO (acute kidney injury): Status: Acute Category: Medical Code(s): N17.9 - Acute kidney failure, unspecified (5) Stage 4 chronic kidney disease: Status: Chronic Category: Medical Code(s): N18.4 - Chronic kidney disease, stage 4 (severe) (6) Heart failure with recovered ejection fraction (HFrecEF): Status: Acute Category: Medical Code(s): I50.32 - Chronic diastolic (congestive) heart failure (7) Diabetes mellitus: Status: Resolved Qualifiers: Diabetes mellitus type: other specified (including GORDON) 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 Her ED presenting vitals identified uncontrolled blood pressure with abnormal
[2023-08-02 16:47] LABS: POC Glucose,Bedside 224 (70-110)
--- NOTE | 2023-08-02 18:21 | PC.NURSE ---
MORE ALERT AND INTERACTIVE TODAY SAT UP TO CHAIR FOR MOST OF AFTERNOON AFTER WORKING WITH PHYSICAL THERAPY. TOLERATING DIET WELL. ABLE TO TOLERATE PO MEDICATION ADMINISTRATION TODAY. C/O CLEMENT THIS AFTERNOON AND WAS MEDICATED WITH PRN TYLENOL WITH GOOD EFFECTIVENESS.
[2023-08-02 20:02] LABS: POC Glucose,Bedside 182 (70-110)
[2023-08-03] VITALS: BP 156/62; PULSE 70; PULSE 73; RESP 18; TEMP 37.2; O2SAT 96
[2023-08-03 04:00] VITALS: BP 159/65; PULSE 72; RESP 18; TEMP 36.8; O2SAT 97; BMI 35.3
[2023-08-03 04:42] LABS: POC Glucose,Bedside 114 (70-110)
[2023-08-03 05:27] LABS: POC Glucose,Bedside 125 (70-110)
--- NOTE | 2023-08-03 05:32 | PC.NURSE ---
The patient has had a good night. Alertness has waxed and waned through the night. Will sometimes know where she is at and why, and other times will not. Patient did have another IV infiltrated. A US guided IV 18 was placed in the R upper arm. Flushing fine. Patient has been incontinent through the night with x2 BM. Dressing on coccyx was replaced each time. Patient has been turned every 2hrs to promote wound healing on the coccyx. Patient ws starting to wheeze through the night. RN got a PRN breathing treatment as well as spoke to the provider about stopping the fluids. BLIND STITCH MACHINE OPERATOR was agreeable to stopping the fluids. Patient family remains at bedside. no other issues noted.
[2023-08-03 06:56] LABS: Basophils % 0.3 % (0.1-2.0); Eosinophils # 0.3 K/mm3 (0.0-0.4); Eosinophils % 2.6 % (0.1-12.0); Lymphocytes # 1.4 K/mm3 (0.7-4.5); Lymphocytes % 12.9 % (10-50); Mean Corpuscular Hemoglobin 33.6 pg (27.0-31.2); Mean Corpuscular Volume 102.1 fl (81-99); Mean Platelet Volume 9.4 fl (7.4-10.4); Monocytes # 0.8 K/mm3 (0.1-1.0); Monocytes % 7.1 % (1.7-9.3); Neutrophils # 8.3 K/mm3 (1.8-7.8); Neutrophils % 77.1 % (37.0-80.0); Platelet Count 160 K/mm3 (142-424); Red Blood Count 2.82 M/mm3 (4.20-5.40); Red Cell Distribution Width 14.2 % (11.5-17.5); White Blood Count 10.8 K/mm3 (4.8-10.8)
[2023-08-03 07:06] LABS: Chloride 111 mmol/L (98-107); Potassium 4.1 mmoL/L (3.5-5.1); Sodium 134 mmol/L (136-145)
[2023-08-03 07:09] LABS: Blood Urea Nitrogen 33 mg/dl (7-17); Creatinine Clearance Estimated 33 mL/min (50-200); Estimated Glomerular Filt Rate 21 ml/min (>60); GFR (African American) 25 ML/MIN (>60)
[2023-08-03 07:10] LABS: Anion Gap 9.1 mEq/L (5-15); Calcium 7.3 mg/dl (8.4-10.2); Carbon Dioxide 18 mmol/L (22.0-30.0); Glucose 120 mg/dl (74-100)
[2023-08-03 07:13] LABS: Hematocrit 28.8 % (37.0-47.0); Hemoglobin 9.5 g/dL (12.2-16.2)
[2023-08-03 08:00] VITALS: BP 180/84; PULSE 70; RESP 18; TEMP 36.6; O2SAT 98
[2023-08-03 09:00] VITALS: PULSE 71; PULSE 75; O2SAT 95
[2023-08-03 09:07] VITALS: BMI 35.3
--- NOTE | 2023-08-03 10:44 | EXP.DC.SUM ---
General Admission date:: 07/29/23 Discharge date: 08/03/23 HPI HPI HPI: Patient is a 72-year-old female that presents to [facility] emergency department accompanied by her daughter for altered mental status for greater than 8 hours. Her daughter provides the history. Daughter reports that the patient lives with her 2 daughters and grandson and will occasionally help with cooking. She normally takes her own medications including her chronically prescribed opioid. Daughter identified a change in her mental status that would wax and wane with no associated falls, syncope or identified dysarthria. They presented to the ED for evaluation. In the ED her presenting blood pressure was 208/93 with initial tachycardia that responded to beta-dhara therapy. A CT of the head identified no acute disease and her laboratory studies identified a leukocytoses and abnormal urinalysis. She was assessed with urosepsis out of the ED. We were consulted for hospital admission. Hospital Course Hospital Course Hospital Course: This is a 72-year-old female who presents to [facility] emergency department accompanied by her daughter for concerns of altered mental status. Her ED presenting vitals identified uncontrolled blood pressure with abnormal urinalysis and concerns for sepsis secondary to UTI. Initiated on broad-spectrum antibiotics. Urine culture positive for gram-negative rods. Blood cultures turn positive after 3 and half days. Repeat cultures were obtained however remain negative. At this time patient is stable to discharge to nursing facility for rehab. Problems addressed as follows: Sepsis, POA UTI Acute metabolic encephalopathy -resolved -Patient admitted for confusion and meeting sepsis criteria. Cultures obtained including blood cultures and urine cultures. Initiated on broad-spectrum antibiotics with vancomycin and Rocephin. Urine culture returned positive for gram-negative rods sensitive to Rocephin. Patient has completed her course of antibiotics. Given timeframe that blood cultures grew positive and that it is a different pathogen from her urine, I feel at this time they are likely contaminant. Repeat cultures were obtained and if show no growth at time of discharge. No further indication for antibiotics. Of note, CT head was obtained with no acute abnormalities. Mentation has improved and patient is back to baseline mentation by day of discharge. Given weakness, was evaluated by PT and OT, will discharge to rehab for skilled therapy. Hypertension: - Presented with malignant hypertension. Patient is asymptomatic from her hypertension at this time. Adjustments made to regimen due to kidney function. His kidney function stabilized at her baseline, continue regimen of carvedilol twice daily, losartan daily, hydralazine 3 times a day, and isosorbide mononitrate. Recommend repeat CMP in 1 week to monitor kidney function Chronic kidney disease stage IV: at baseline, monitor Chronic heart failure with recovered ejection fraction - stable Coronary artery disease Chronically elevated troponin Pacemaker -Continue home regimen. Optimize therapy with addition of aspirin, high intensity statin, and long-acting nitrate. Diabetes with peripheral neuropathy: Decrease gabapentin to 100 mg 3 times a day due to sedation with higher dose. -Continue insulin therapy with NPH/regular units twice daily. Stable to discharge to [facility] for further care. Spent 30 minutes in discharge counseling, documentation, chart review, discussion with family, and direct care with patient. Exam Data for Last 24 hours Vital signs and Labs for Last 24 Hours: Temp Pulse Resp BP Pulse Ox O2 Del Method 97.9 F 71 18 180/84 H 95 Room Air 08/03/23 08:00 08/03/23 09:00 08/03/23 08:00 08/03/23 08:00 08/03/23 09:00 08/03/23 09:00 Laboratory Results - last 24 hr 08/02/23 09:31: POC Glucose 139 H
[2023-08-03 11:18] LABS: POC Glucose,Bedside 189 (70-110)
--- NOTE | 2023-08-04 09:39 | PC.NURSE ---
blood culture results showed staphylococcus epidermidis, Admitted to 2nd with repeat cultures that resulted as negative per chart, given rocephin and vanc, DC to detention, no action need per
== END 2023-08-03 15:19 | DRG 871 ==
LOC: ER 22:15 → 2ND 07-29 00:01
PROVIDERS: Family Medicine; Admitting Provider Internal Medicine; Emergency Provider Emergency Medicine; PCP Internal Medicine Adolescent Medicine; Visit Provider Internal Medicine
DX: A41.9 Sepsis, unspecified organism (principal); G93.41 Metabolic encephalopathy; R65.21 Severe sepsis with septic shock; N39.0 Urinary tract infection, site not specified; N17.9 Acute kidney failure, unspecified; N18.4 Chronic kidney disease, stage 4 (severe); I50.32 Chronic diastolic (congestive) heart failure; I13.0 Hypertensive heart and chronic kidney disease with heart failure and stage 1 through stage 4 chronic kidney disease, or unspecified chronic kidney disease; I42.9 Cardiomyopathy, unspecified; I16.0 Hypertensive urgency; Z79.02 Long term (current) use of antithrombotics/antiplatelets; E11.22 Type 2 diabetes mellitus with diabetic chronic kidney disease; Z79.4 Long term (current) use of insulin; Z79.899 Other long term (current) drug therapy; Z95.0 Presence of cardiac pacemaker; Z95.1 Presence of aortocoronary bypass graft; I25.10 Atherosclerotic heart disease of native coronary artery without angina pectoris; E11.610 Type 2 diabetes mellitus with diabetic neuropathic arthropathy
CPT/HCPCS: 36415; 70450; 71045; 80048; 80053; 80305; 80329; 81001; 82009; 82550; 82607; 82803; 82962; 83605; 83735; 84484; 85007; 85025; 85610; 87040; 87086; 87636; 92610; 93005; 94640; 97110; 97163; 97166; 97530; 99291; J0696; J3370

== ENCOUNTER 2023-08-17 20:27 | Inpatient (IN) | payer MEDICARE, SELFPAY ==
[2023-08-17] VITALS (8 sets, daily range): BP systolic 133–183; BP diastolic 57–63; PULSE 70–73; RESP 20–21; TEMP 37.2–37.3; O2SAT 95–98; BMI 37.0
--- NOTE | 2023-08-17 20:54 | XR_ITS ---
PROCEDURE INFORMATION: Exam: XR Chest Exam date and time: 08/17/2023 8:56 PM Age: 73 years old Clinical indication: Screening exam; Other screening; Additional info: Left sided pna suspected TECHNIQUE: Imaging protocol: Radiologic exam of the chest. Views: 1 view. COMPARISON: CR XR CHEST PORTABLE 08/01/2023 11:44 AM FINDINGS: Lungs: There is mild prominence of the perihilar lung markings which could be related to crowding. Pleural spaces: No evidence of pleural effusion, pneumothorax, or pleural thickening in the visualized pleural spaces. Heart/Mediastinum: There is a left chest implanted cardiac device. Bones/joints: The patient is status post median sternotomy. Other findings: The examination is limited by under penetration. There is a low level of inspiration. IMPRESSION: Low level of inspiration with bibasilar atelectasis. No definite large parenchymal consolidation, effusion, or pneumothorax.
--- NOTE | 2023-08-17 21:17 | HMH.EDGENADL ---
Discharge Plan Disposition Patient Disposition: Admitted Chief Complaint: Weakness Prescriptions Prescriptions: No Action aspirin [Adult Low Dose Aspirin] 81 mg tablet,delayed release (DR/EC) 81 mg PO DAILY clopidogrel 75 mg tablet 75 mg PO DAILY sitagliptin phosphate [Januvia] 50 mg tablet 50 mg PO DAILY famotidine 20 mg tablet 20 mg PO BID citalopram 20 mg tablet 20 mg PO DAILY 90 Days insulin NPH and regular human 100 unit/mL (70-30) insulin pen 20 unit SQ BID carvedilol 12.5 mg tablet 12.5 mg PO BID cholecalciferol (vitamin D3) 1,000 UNIT tablet 1,000 unit PO DAILY tramadol 50 mg tablet 50 mg PO TIDP PRN (Reason: Pain) Rx Instructions: USUALLY ONLY TAKES AT BEDTIME pantoprazole 40 mg tablet,delayed release (DR/EC) 40 mg PO HS ferrous sulfate 325 mg (65 mg iron) Tablet 325 mg PO DAILY cetirizine 10 mg tablet 10 mg PO DAILY Patient Comments: TAKE 1 TABLET BY MOUTH ONCE DAILY prednisone 20 mg tablet 20 mg PO DAILY Patient Comments: TAKE 1 TABLET BY MOUTH ONCE DAILY FOR 10 DAYS cyanocobalamin (vitamin B-12) 1,000 mcg/mL solution 1,000 mcg IM MONTHLY albuterol sulfate 90 mcg/actuation HFA aerosol inhaler 2 puff INHALATION Q6HP PRN (Reason: Shortness Of Breath) Patient Comments: INHALE 2 PUFFS BY MOUTH EVERY 6 HOURS NEEDED atorvastatin 40 mg Tablet 40 mg PO HS 30 Days Qty: 30 0RF isosorbide mononitrate 30 mg Tablet Extended Release 24 Hr 30 mg PO DAILY 30 Days Qty: 30 0RF hydralazine 25 mg Tablet 25 mg PO TID 30 Days Qty: 90 0RF losartan 100 mg tablet 100 mg PO DAILY 30 Days Qty: 0 0RF gabapentin 100 mg capsule 100 mg PO TID Qty: 90 0RF Referrals Follow up/Referrals: Royer Parrish MD [Primary Care Provider] - See instructions Clinical Impressions Clinical Impression: Acute hypoxemic respiratory failure, MASSIMO (acute kidney injury) CHF exacerbation Qualifiers: Heart failure type: systolic Qualified Code(s): I50.23 - Acute on chronic systolic (congestive) heart failure Discharge ED Provider: Arya Pendleton [facility] General Chief complaint: Weakness Stated complaint: family request recheck Time Seen by Provider: 08/17/23 20:37 Mode of Arrival: EMS Source of Information: EMS Limitations: No Limitations Description of Symptoms (Recalled from ER Triage Doc. by RN): Adonay Mcknight Pt was dx with pna today and started on abx 3 hrs ago, family states she is no better and will end up on ventilator. Adonay Mcknight called EMS to transport her to ED. History of Present Illness HPI narrative: 68-year-old female with hypertension, hyperlipidemia, CHF, diabetes, CKD 4 presenting with altered mental status, weakness. Patient has been intubated on the ventilator twice in the past for sepsis, secondary to UTI and pneumonia. Patient was diagnosed with pneumonia 2 days prior to this visit on 08/17 at detention and started on antibiotics. They have been largely unable to get patient to tolerate oral antibiotics. Today family checked on patient and stated that she was tired, largely unable to participate in physical therapy. Afebrile, patient has had productive cough, per family. Related Data Home Medications Medication Instructions Recorded Confirmed aspirin 81 mg tablet,delayed 81 mg PO DAILY Heart disease 09/17/17 07/29/23 release (Adult Low Dose Aspirin) clopidogrel 75 mg tablet 75 mg PO DAILY 09/17/17 07/29/23 sitagliptin phosphate 50 mg tablet 50 mg PO DAILY Diabetes 09/17/17 07/29/23 (Januvia) famotidine 20 mg tablet 20 mg PO BID Acid reflux 09/18/17 07/29/23 citalopram 20 mg tablet 20 mg PO DAILY Depression 90 days 09/16/18 07/29/23 cholecalciferol (vitamin D3) 25 1,000 unit PO DAILY Supplement 05/12/19 07/29/23 mcg (1,000 unit) tablet insulin NPH-regular 70-30 U-100 20 unit SQ BID Diabetes 02/09/20 07/29/23 insulin 100 unit/mL subcutaneous
[2023-08-17 21:47] LABS: Basophils % 0.2 % (0.1-2.0); Eosinophils # 0.1 K/mm3 (0.0-0.4); Eosinophils % 2.2 % (0.1-12.0); Hematocrit 24.2 % (37.0-47.0); Lymphocytes % 16.5 % (10-50); Mean Corpuscular HGB Conc 33.1 g/dL (31.8-35.4); Mean Corpuscular Hemoglobin 33.4 pg (27.0-31.2); Mean Corpuscular Volume 100.9 fl (81-99); Mean Platelet Volume 8.9 fl (7.4-10.4); Monocytes # 0.5 K/mm3 (0.1-1.0); Monocytes % 7.7 % (1.7-9.3); Neutrophils # 4.6 K/mm3 (1.8-7.8); Neutrophils % 73.3 % (37.0-80.0); Platelet Count 165 K/mm3 (142-424); Red Cell Distribution Width 13.8 % (11.5-17.5); White Blood Count 6.2 K/mm3 (4.8-10.8)
[2023-08-17 21:54] LABS: Alanine Aminotransferase 25 U/L (12-78); Albumin Level 2.4 g/dl (3.5-5.0); Alkaline Phosphatase 88 U/L (38-126); Anion Gap 5.2 mEq/L (5-15); Aspartate Amino Transferase 43 U/L (14-36); Bilirubin,Total 0.2 mg/dl (0.2-1.3); Blood Urea Nitrogen 60 mg/dl (7-17); Calcium 7.1 mg/dl (8.4-10.2); Carbon Dioxide 22 mmol/L (22.0-30.0); Chloride 109 mmol/L (98-107); Creatinine Clearance Estimated 20 mL/min (50-200); Estimated Glomerular Filt Rate 12 ml/min (>60); GFR (African American) 14 ML/MIN (>60); Globulin 2.5 g/dL (1.3-3.2); Glucose 220 mg/dl (74-100); Potassium 5.2 mmoL/L (3.5-5.1); Sodium 131 mmol/L (136-145); Total Protein,Serum 4.9 g/dl (6.3-8.2)
[2023-08-17 21:58] LABS: Lactic Acid 0.7 mmol/L (0.7-2.1)
[2023-08-17 22:06] LABS: NT Pro Brain Natriuretic Pep. 24200 pg/mL (0-450); Troponin I 0.16 ng/ml (0.00-0.034)
[2023-08-17 22:19] LABS: Procalcitonin 0.198 ng/mL (0.0-2.0)
--- NOTE | 2023-08-17 23:00 | PC.NURSE ---
Decision to admit. Contacted house system administrator for bed assignment for CHF and MASSIMO.
--- NOTE | 2023-08-17 23:02 | EXP.HP ---
History of Present Illness *Admission Date: 08/17/23 *History of present illness: This is a 68-year-old female with hypertension, hyperlipidemia, CHF, diabetes, CKD 4 presenting with altered mental status, weakness. Patient has been intubated on the ventilator twice in the past for sepsis, secondary to UTI and pneumonia. Patient was diagnosed with pneumonia 2 days prior to this visit on 08/17 at long-term and started on antibiotics. They have been largely unable to get patient to tolerate oral antibiotics. Today family checked on patient and stated that she was tired, largely unable to participate in physical therapy. Afebrile, patient has had productive cough, per family. Admitted for treatment and management. [facility] Disclaimer: The information contained in this section may have been updated after the patient was seen, as this information can be updated by other users. Medical History (Updated 08/18/23 @ 12:35 by Liz Tubbs APRN) Anemia, chronic renal failure CAD (coronary artery disease) Cardiomyopathy CHF (congestive heart failure) Coronary artery disease Diabetes mellitus Edema HFrEF (heart failure with reduced ejection fraction) Hyperlipidemia Hypertension PAD (peripheral artery disease) Stage 4 chronic kidney disease Surgical History Hx of CABG Pacemaker S/P cardiac cath Family History Other No significant family history Social History (Updated 08/18/23 @ 00:29 by Adilia Saeed RN) Smoking Status: Never smoker second hand exposure: No alcohol intake: never counseling provided: none substance use type: denies use current occupational status: retired and disabled Travel in the last 8 weeks: None household members: family housing: house current occupational exposures/hazards: No caffeine: No Review of Systems Review of Systems Review of systems:: unable to obtain Meds Home Medications and Allergies Home Medications Medication Instructions Recorded Confirmed Type aspirin 81 mg tablet,delayed 81 mg PO DAILY Heart disease 09/17/17 08/18/23 History release (Adult Low Dose Aspirin) clopidogrel 75 mg tablet 75 mg PO DAILY 09/17/17 08/18/23 History sitagliptin phosphate 50 mg tablet 50 mg PO DAILY Diabetes 09/17/17 08/18/23 History (Januvia) famotidine 20 mg tablet 20 mg PO BID Acid reflux 09/18/17 08/18/23 History citalopram 20 mg tablet 20 mg PO DAILY Depression 90 days 09/16/18 08/18/23 History cholecalciferol (vitamin D3) 25 1,000 unit PO DAILY Supplement 05/12/19 08/18/23 History mcg (1,000 unit) tablet insulin NPH-regular 70-30 U-100 12 unit SQ BID Diabetes 02/09/20 08/18/23 History insulin 100 unit/mL subcutaneous pen carvedilol 12.5 mg tablet 12.5 mg PO BID 10/23/20 08/18/23 History ferrous sulfate 325 mg (65 mg 325 mg PO DAILY supplement 07/09/22 08/18/23 History iron) tablet pantoprazole 40 mg tablet,delayed 40 mg PO HS 06/25/23 08/18/23 History release tramadol 50 mg tablet 50 mg PO TIDP PRN Pain 06/25/23 08/18/23 History albuterol sulfate 90 mcg/actuation 2 puff inhalation Q6HP PRN 07/29/23 08/18/23 History aerosol inhaler Shortness Of Breath cetirizine 10 mg tablet 10 mg PO DAILY 07/29/23 08/18/23 History cyanocobalamin (vitamin B-12) 1,000 mcg IM MONTHLY 07/29/23 08/18/23 History 1,000 mcg/mL injection solution atorvastatin 40 mg tablet 40 mg PO HS 30 days #30 tabs 08/03/23 08/18/23 Rx gabapentin 100 mg capsule 100 mg PO TID #90 caps 08/03/23 08/18/23 Rx isosorbide mononitrate 30 mg 30 mg PO DAILY 30 days #30 tabs 08/03/23 08/18/23 Rx tablet,extended release 24 hr bumetanide 0.5 mg tablet 0.5 mg PO DAILY 08/18/23 08/18/23 History hydralazine 25 mg tablet 50 mg PO TID 08/18/23 08/18/23 History New Prescriptions to Start Prescriptions: Allergies Allergy/AdvReac Type Severity Reaction Status Date / Time fentanyl [F
--- NOTE | 2023-08-17 23:30 | PC.NURSE ---
Nurse to nurse report to Adilia BLAKE.
--- NOTE | 2023-08-17 23:41 | PC.NURSE ---
RECEIVED PHONE REPORT FROM RITA RN/ED AT [id number]. PATIENT ARRIVED AT [id number] PER STRETCHER. 73 YO FEMALE. DIAGNOSIS CHF/MASSIMO/PNEUMONIA.
--- NOTE | 2023-08-17 23:42 | PC.NURSE ---
PT ARRIVED TO FLOOR AT THIS TIME
[2023-08-18] VITALS (22 sets, daily range): BP systolic 104–200; BP diastolic 49–109; PULSE 69–80; RESP 14–22; TEMP 36.7–37.1; O2SAT 2–98; BMI 37.1; BMI 37.0
[2023-08-18 00:39] LABS: Troponin I 0.18 ng/ml (0.00-0.034)
[2023-08-18 03:10] LABS: Troponin I 0.16 ng/ml (0.00-0.034)
[2023-08-18 06:12] LABS: POC Glucose,Bedside 190 (70-110)
--- NOTE | 2023-08-18 07:28 | SW/DCPLANNER ---
Addendum entered by Melani Joaquin 08/18/23 07:50: Updated patient information has been faxed to Rena. Original Note: Patient currently resides at [facility] level of care. I will continue to follow up w/ Rena at [facility] until patient is medically stable for discharge. Discharge date is unknown at this time.
[2023-08-18 07:38] LABS: Chloride 108 mmol/L (98-107); Sodium 133 mmol/L (136-145)
[2023-08-18 07:40] LABS: Blood Urea Nitrogen 64 mg/dl (7-17); Creatinine Clearance Estimated 21 mL/min (50-200); Estimated Glomerular Filt Rate 13 ml/min (>60); GFR (African American) 15 ML/MIN (>60)
[2023-08-18 07:41] LABS: Alanine Aminotransferase 27 U/L (12-78); Albumin Level 2.7 g/dl (3.5-5.0); Alkaline Phosphatase 60 U/L (38-126); Aspartate Amino Transferase 66 U/L (14-36); Bilirubin,Total 0.8 mg/dl (0.2-1.3); Calcium 7.5 mg/dl (8.4-10.2); Carbon Dioxide 16 mmol/L (22.0-30.0); Globulin 2.7 g/dL (1.3-3.2); Glucose 177 mg/dl (74-100); Magnesium 1.9 mg/dl (1.6-2.3); Total Protein,Serum 5.4 g/dl (6.3-8.2)
[2023-08-18 07:45] LABS: Basophils % 0.2 % (0.1-2.0); Eosinophils # 0.2 K/mm3 (0.0-0.4); Eosinophils % 2.2 % (0.1-12.0); Hematocrit 36.2 % (37.0-47.0); Lymphocytes # 1.2 K/mm3 (0.7-4.5); Lymphocytes % 14.4 % (10-50); Mean Corpuscular HGB Conc 33.1 g/dL (31.8-35.4); Mean Corpuscular Hemoglobin 34.3 pg (27.0-31.2); Mean Corpuscular Volume 103.7 fl (81-99); Mean Platelet Volume 8.2 fl (7.4-10.4); Monocytes # 0.5 K/mm3 (0.1-1.0); Monocytes % 6.1 % (1.7-9.3); Neutrophils # 6.3 K/mm3 (1.8-7.8); Neutrophils % 77.1 % (37.0-80.0); Platelet Count 151 K/mm3 (142-424); Red Blood Count 3.49 M/mm3 (4.20-5.40); Red Cell Distribution Width 13.4 % (11.5-17.5); White Blood Count 8.2 K/mm3 (4.8-10.8)
--- NOTE | 2023-08-18 08:02 | EXP.PHA.CONS ---
Pharmacy Consult Date: 08/18/23 Time: 08:02 Referring provider: DR ZEPEDA Reason for Consult:: VANCOMYCIN DOSING CONSULT Allergies Allergy/AdvReac Type Severity Reaction Status Date / Time fentanyl [FENTANYL] Allergy Unknown Verified 08/18/22 09:32 latex [LATEX] Allergy Unknown Verified 08/18/22 09:32 codeine AdvReac Unknown Verified 08/18/22 09:32 Home Medications Medication Instructions Recorded Confirmed Type aspirin 81 mg tablet,delayed 81 mg PO DAILY Heart disease 09/17/17 08/18/23 History release (Adult Low Dose Aspirin) clopidogrel 75 mg tablet 75 mg PO DAILY 09/17/17 08/18/23 History sitagliptin phosphate 50 mg tablet 50 mg PO DAILY Diabetes 09/17/17 08/18/23 History (Januvia) famotidine 20 mg tablet 20 mg PO BID Acid reflux 09/18/17 08/18/23 History citalopram 20 mg tablet 20 mg PO DAILY Depression 90 days 09/16/18 08/18/23 History cholecalciferol (vitamin D3) 25 1,000 unit PO DAILY Supplement 05/12/19 08/18/23 History mcg (1,000 unit) tablet insulin NPH-regular 70-30 U-100 20 unit SQ BID Diabetes 02/09/20 08/18/23 History insulin 100 unit/mL subcutaneous pen carvedilol 12.5 mg tablet 12.5 mg PO BID 10/23/20 08/18/23 History ferrous sulfate 325 mg (65 mg 325 mg PO DAILY supplement 07/09/22 08/18/23 History iron) tablet pantoprazole 40 mg tablet,delayed 40 mg PO HS 06/25/23 08/18/23 History release tramadol 50 mg tablet 50 mg PO TIDP PRN Pain 06/25/23 08/18/23 History albuterol sulfate 90 mcg/actuation 2 puff inhalation Q6HP PRN 07/29/23 08/18/23 History aerosol inhaler Shortness Of Breath cetirizine 10 mg tablet 10 mg PO DAILY 07/29/23 08/18/23 History cyanocobalamin (vitamin B-12) 1,000 mcg IM MONTHLY 07/29/23 08/18/23 History 1,000 mcg/mL injection solution prednisone 20 mg tablet 20 mg PO DAILY 07/29/23 08/18/23 History atorvastatin 40 mg tablet 40 mg PO HS 30 days #30 tabs 08/03/23 08/18/23 Rx gabapentin 100 mg capsule 100 mg PO TID #90 caps 08/03/23 08/18/23 Rx hydralazine 25 mg tablet 25 mg PO TID 30 days #90 tabs 08/03/23 08/18/23 Rx isosorbide mononitrate 30 mg 30 mg PO DAILY 30 days #30 tabs 08/03/23 08/18/23 Rx tablet,extended release 24 hr losartan 100 mg tablet 100 mg PO DAILY Hypertension 30 08/03/23 08/18/23 Rx days #0 tabs New Prescriptions to Start Prescriptions: Height: 1.6 m Weight: 95.028 kg Laboratory Results:: Laboratory Results - last 24 hr 08/17/23 21:36: WBC 6.2, RBC 2.40 L, Hgb 8.0 L, Hct 24.2 L, MCV 100.9 H, MCH 33.4 H, MCHC 33.1, RDW 13.8, Plt Count 165, MPV 8.9, Neut % (Auto) 73.3, Lymph % (Auto) 16.5, Emery % (Auto) 7.7, Eos % (Auto) 2.2, Baso % (Auto) 0.2, Neut # (Auto) 4.6, Lymph # (Auto) 1.0, Emery # (Auto) 0.5, Eos # (Auto) 0.1, Baso # (Auto) 0.0, Sodium 131 L, Potassium 5.2 H, Chloride 109 H, Carbon Dioxide 22, Anion Gap 5.2, BUN 60 H, Creatinine 3.70 H, Estimated Creat Clear 20, Estimated GFR 12 L*, Est GFR ( Amer) 14 L*, Glucose 220 H D, Lactate 0.7, Calcium 7.1 L, Total Bilirubin 0.2, AST 43 H, ALT 25, Alkaline Phosphatase 88, Troponin I 0.16 H, NT-Pro-B Natriuret Pep 85989 H, Total Protein 4.9 L, Albumin 2.4 L, Globulin 2.5, Albumin/Globulin Ratio 1.0 L, Procalcitonin 0.198 08/18/23 00:05: Troponin I 0.18 H 08/18/23 02:40: Troponin I 0.16 H 08/18/23 06:04: POC Glucose 190 H Medical History: Medical History (Updated 08/18/23 @ 04:27 by Lopez Kaisre APRN) Anemia, chronic renal failure Cardiomyopathy CHF (congestive heart failure) Coronary artery disease Diabetes mellitus Edema Hyperlipidemia Hypertension Stage 4 chronic kidney disease Assessment and Plan Assessment and plan all Dx Assessment and Plan for all problems:: Pharmacokinetic dosing service Objective: Age: 73 yo Serum creatinine: 3.7 mg/dL Height: 63.0 Inches Weight (kg): 95.02 Diagnosis: PNEUMONIA/UTI Assessment: IBW (kg): 52.40 Dosing wt(kg)
[2023-08-18 08:12] LABS: Hemoglobin 10.4 g/dL (12.2-16.2)
[2023-08-18 08:40] LABS: Anion Gap 14.6 mEq/L (5-15); Potassium 5.6 mmoL/L (3.5-5.1)
--- NOTE | 2023-08-18 08:44 | CA_ITS ---
APPROVED REPORT EXAM: Comprehensive 2D, Doppler, and color-flow Echocardiogram Food Inspector: Emerita Lozano RT(R) Ht: 5 ft 2 in Wt: 209lbs BSA: 1.95 BP: 183/63 mmHg Indications: elevated troponins, DM, SOB, hyperlipidemia, CHF, CM, MASSIMO, CAD, pacemaker, hx of CABG. Echo Enhancing Agent Indication: Endocardial border delineation Agent(s) / Amount(s) Used: Definity 2 cc 2D Dimensions Left Atrium 3.87 cm F: 2.7 - 3.8 EF AP4 43.20 % LVOT 1.88 cm (M/F) 1.5-2.5 GL Strain -12.2 % M-Mode Dimensions RVDd 3.01 cm (0.9-2.6) LVDd 5.46 cm (3.5-5.7) Ao Diam 2.26 cm (2.0-3.7) LVDs 4.30 cm (3.5-5.7) IVSd 0.84 cm (0.6-1.1) PWd 0.84 cm (0.6-1.1) EF (Teich) 42.70% FS 21.20% EDV (Teich) 145.00 mL ESV (Teich) 83.10 mL LV Diastology E Decel Time 211 (160-240 msec) E/A Ratio 1.0 MED E' 5.1 (>= 7 cm/sec) E'/MED E' Ratio 25.39 (<= 14) LAT E' 5.7 (>= 10 cm/sec) E/LAT E' Ratio 22.72 (<= 14) Mitral Valve MV E Max Rusty. 129.0 (40-130 cm/s) MV A Velocity 123.0 (40-130 cm/s) E/A Ratio 1.06 MV Decel. Time 211 (160-240 ms) MV PHT 69.0 ms Left Ventricle The left ventricle is normal size. Left ventricular systolic function is mildly decreased. There is increased LV wall thickness. There is moderate hypokinesis of the basal septal and inferoseptal LV kathleen. Diastolic function is indeterminate. No left ventricle thrombus noted on this study. LVEF is 40-45%. Right Ventricle The right ventricle is n mildly dilated. The right ventricular systolic function is normal. There is increased RV wall thickness. Atria The left atrium size is normal. The right atrium size is normal. The interatrial septum is not well-visualized. Aortic Valve The aortic valve is mildly thickened. There is no aortic valvular stenosis. Trace aortic regurgitation. Mitral Valve Moderate mitral annular calcification. The mitral valve leaflets are moderately thickened. The mitral chordae are also calcified. Mild mitral stenosis. Mean MV gradient 5 mmHg (HR 72 bpm). Mild mitral regurgitation. Tricuspid Valve The tricuspid valve leaflets are thin and pliable. Trace tricuspid regurgitation. RVSP is 25 mmHg + RA pressure. Pulmonic Valve The pulmonary valve is normal in structure. Trace pulmonic regurgitation. Great Vessels The aortic root is normal in size. The ascending aorta is normal in size. The IVC is not well-visualized. Pericardium There is no pericardial effusion. Other Information Study Quality: Technically Difficult Conclusion Technically difficult study due to poor acoustic windows. Mild reduction in LV systolic function (LVEF 40-45%). Moderate hypokinesis of the basal septal and inferoseptal LV kathleen. Mild RV dilation. Moderate mitral annular calcification. The mitral valve leaflets are moderately thickened. The mitral chordae are also calcified. Mild mitral regurgitation. Mild mitral stenosis. Electronically signed by : Heather Hurst MD 08/23/2023 20:54:59
--- NOTE | 2023-08-18 09:55 | P.CONPHA_ITS ---
Pharmacy Intervention Comments: HOME MEDICATION LIST VERIFIED USING LIST FROM [facility] AND INTERVIEW WITH DAUGHTERS
--- NOTE | 2023-08-18 09:55 | HMH.PHAINT1 ---
Pharmacy Intervention Comments: HOME MEDICATION LIST VERIFIED USING LIST FROM ALF AND INTERVIEW WITH DAUGHTERS
[2023-08-18 11:31] LABS: POC Glucose,Bedside 178 (70-110)
--- NOTE | 2023-08-18 11:58 | EXP.CARD.CON ---
History of Present Illness History of Present Illness Consult date: 08/18/23 Requesting physician: Sathish Antoine Consult reason: congestive heart failure Chief complaint: AMS, SOB, cough History of present illness: This is a 73-year-old female who presented to the emergency department with complaints of altered mental status, weakness, shortness of breath and cough. The patient has a known past medical history of coronary artery disease status post coronary artery bypass grafting, congestive heart failure, chronic kidney disease, hypertension, hyperlipidemia and BiV AICD placement. The patient has been in rehab following her previous hospital admission. Her family reports that she had been doing well in rehab until approximately 4 to 5 days ago when she started declining. Her family reports that she was just not as active as she had been with physical therapy. She was not eating and drinking as well as she had been in stating that she just not felt well. The patient was progressively more short of breath and had a cough and congestion in her chest. Her family reports that the cough was productive but unable to tell me what the sputum looks like. The patient was afebrile. She did have a chest x-ray at the nursing facility where she is in rehab. This showed pneumonia and the patient was started on oral antibiotics. She had 1 dose of the oral antibiotics but was not really tolerating p.o. well. The patient's family then decided to bring her here to the emergency department for further evaluation. The patient has been admitted to the hospital for the pneumonia, chronic kidney disease and CHF exacerbation. The patient denies any chest pain or pressure. She states that she is short of breath even at rest. Worse with exertion. She has some edema intermittently in her bilateral lower extremities but overall her lower extremity edema has been much improved. She has been fatigued and has no energy. She seems to be lethargic at times and states all she wants to do is sleep. She denies any fever, chills, nausea, vomiting or diarrhea. [facility] Disclaimer: The information contained in this section may have been updated after the patient was seen, as this information can be updated by other users. Medical History (Updated 08/18/23 @ 12:35 by Liz Tubbs APRN) Anemia, chronic renal failure CAD (coronary artery disease) Cardiomyopathy CHF (congestive heart failure) Coronary artery disease Diabetes mellitus Edema HFrEF (heart failure with reduced ejection fraction) Hyperlipidemia Hypertension PAD (peripheral artery disease) Stage 4 chronic kidney disease Surgical History Hx of CABG Pacemaker S/P cardiac cath Family History Other No significant family history Social History (Updated 08/18/23 @ 00:29 by Adilia Saeed RN) Smoking Status: Never smoker second hand exposure: No alcohol intake: never counseling provided: none substance use type: denies use current occupational status: retired and disabled Travel in the last 8 weeks: None household members: family housing: house current occupational exposures/hazards: No caffeine: No Review of Systems Review of Systems Review of systems:: pertinent systems reviewed and negative unless documented below Constitutional Constitutional: Reports system reviewed and no additional complaints, except as documented, Denies chills, Reports fatigue, Denies fever(s), Reports poor appetite, Reports lethargy and Reports weakness Eyes Eyes: Reports system reviewed and no additional complaints, except as documented ENT Ears, Nose, Mouth, and Throat: Reports system reviewed and no additional complaints, except as documented *Cardiovascular Cardiovascular: Reports system reviewed and no additional complaints, except as documented, Denies chest pain, Reports dyspnea, Reports dyspnea o
[2023-08-18 12:16] LABS: Coronavirus 19, PCR Not Detected (NotDetected); Influenza B, PCR Not Detected (NotDetected)
--- NOTE | 2023-08-18 12:44 | DIET.NUTRFU ---
Spoke to daughter, last admit patient was seen by speech and diet was downgraded to MSOFT. She was discharge to [facility] where diet had been upgraded to regular. Patient also was refusing to eat MSOFT. Will continue on regular consistency at this time. Daughter would also like to restart homemade shakes this will provide additional calories and protein secondary to wound.
[2023-08-18 12:47] LABS: Influenza A, PCR Detected (NotDetected)
[2023-08-18 14:00] LABS: Microscopic, Urine URINE MICROSCOPIC (MICROSCOPIC)
[2023-08-18 14:04] LABS: Appearance,Urine CLEAR (Clear); Bilirubin,Urine Negative (Negative); Blood, Urine 1+ (Negative); Color,Urine YELLOW (Yellow); Glucose,Urine (UA) 1+ (Negative); Ketones,Urine Negative (Negative); Leukocyte Esterase,Urine Negative (Negative); Nitrate,Urine Negative (Negative); PH,Urine 6.5 (5.0-8.5); Protein,Urine 2+ (Negative); Urobilinogen,Urine 0.2 EU/dl (0.2)
[2023-08-18 14:26] LABS: RBC,Urine Occasional #/hpf (0-3); WBC,Urine Occasional #/hpf (0-3)
[2023-08-18 14:27] LABS: Bacteria,Urine Trace /lpf
--- NOTE | 2023-08-18 14:50 | PC.WOUNDNOTE ---
ulcer noted to buttocks
--- NOTE | 2023-08-18 15:25 | PC.NURSE ---
PT IS RESTING IN BED WITH FAMILY AT BEDSIDE. PT HAS BEEN CONFUSED AND UNCOOPERATIVE T/O THE SHIFT. PT REFUSED MOST OF HER PO MEDS THIS SHIFT. NOTIFIED FAMILY ABOUT PT'S CT RESULTS AND LET THEM KNOW PT WILL NEED TO BE TRANSFERRED. LUNG SOUNDS HAVE SCATTERED WHEEZES/RHONCHI. ABDOMEN SOFT/NON TENDER WITH ACTIVE BOWEL SOUNDS. GENERALIZED EDEMA NOTED. ULCER NOTED TO BUTTOCKS WITH DRESSING. REDNESS NOTED TO ABDOMINAL FOLDS AND MIRIAM AREA. WILL CONTINUE TO MONITOR.
--- OUTSIDE RECORDS SUMMARY | 2023-08-18 15:41 | XMS_ITS | Clinical Summary ---
Author Name Unknown Address [address] [place] [address] Phone Organization [facility] Address [address] [place] [address] Phone Care Team Providers Care Naphthalene Operator Helper Name Role Phone Arthur PASTRANA, Calixto Reynoso Unavailable [ ] Conditions or Problems Problem Name Problem Code Onset Date Status Entry Date Provider Comment Standard Description Annotate RENAL FAILURE, ACUTE 96693743 (SNOMED CT) Active Calixto Gibson MD Acute kidney injury STERNAL WOUND INFECTION 29357417 (SNOMED CT) Active Maribel W Local infection of wound PSEUDOMONAS AERUGINOSA INFECTION B96.5 (ICD-10-CM) Active Maribel W Pseudomonas (aeruginosa) (mallei) (pseudomallei ) as the cause of diseases classified elsewhere ANEMIA 302952827 (SNOMED CT) Active Maribel W Anemia DIABETES MELLITUS 80803156 (SNOMED CT) Active Maribel W Diabetes mellitus
--- NOTE | 2023-08-18 16:10 | EXP.EVENT.NO ---
Ordered CT head that showed Brain bleed, will hold antilplatelates and patient family informed and requesting transfer to [facility] for neurosurgery eval.
--- NOTE | 2023-08-18 16:15 | PC.NURSE ---
SRNA NOTE: nurse notified of elevated BP @1600 andres Kwesi SRNA
--- NOTE | 2023-08-18 16:45 | EXP.PN ---
Subjective *Date: 08/18/23 *Time: 16:45 Interval history: Appears confused, not holding conversations. Exam Data for Last 24 hours Vital signs and Labs for Last 24 Hours: Temp Pulse Resp BP Pulse Ox O2 Del Method O2 Flow Rate 98.7 F 70 16 190/76 H 96 Nasal Cannula 2 08/18/23 12:00 08/18/23 16:00 08/18/23 12:00 08/18/23 12:00 08/18/23 12:00 08/18/23 14:53 08/18/23 14:53 Laboratory Results - last 24 hr 08/17/23 21:36: WBC 6.2, RBC 2.40 L, Hgb 8.0 L, Hct 24.2 L, MCV 100.9 H, MCH 33.4 H, MCHC 33.1, RDW 13.8, Plt Count 165, MPV 8.9, Neut % (Auto) 73.3, Lymph % (Auto) 16.5, Emmons % (Auto) 7.7, Eos % (Auto) 2.2, Baso % (Auto) 0.2, Neut # (Auto) 4.6, Lymph # (Auto) 1.0, Emmons # (Auto) 0.5, Eos # (Auto) 0.1, Baso # (Auto) 0.0, Sodium 131 L, Potassium 5.2 H, Chloride 109 H, Carbon Dioxide 22, Anion Gap 5.2, BUN 60 H, Creatinine 3.70 H, Estimated Creat Clear 20, Estimated GFR 12 L*, Est GFR ( Amer) 14 L*, Glucose 220 H D, Lactate 0.7, Calcium 7.1 L, Total Bilirubin 0.2, AST 43 H, ALT 25, Alkaline Phosphatase 88, Troponin I 0.16 H, NT-Pro-B Natriuret Pep 09925 H, Total Protein 4.9 L, Albumin 2.4 L, Globulin 2.5, Albumin/Globulin Ratio 1.0 L, Procalcitonin 0.198 08/18/23 00:05: Troponin I 0.18 H 08/18/23 02:40: Troponin I 0.16 H 08/18/23 06:04: POC Glucose 190 H 08/18/23 07:02: WBC 8.2 D, RBC 3.49 L D, Hgb 10.4 L D, Hct 36.2 L, MCV 103.7 H, MCH 34.3 H, MCHC 33.1, RDW 13.4, Plt Count 151, MPV 8.2, Neut % (Auto) 77.1, Lymph % (Auto) 14.4, Emmons % (Auto) 6.1, Eos % (Auto) 2.2, Baso % (Auto) 0.2, Neut # (Auto) 6.3, Lymph # (Auto) 1.2, Emmons # (Auto) 0.5, Eos # (Auto) 0.2, Baso # (Auto) 0.0, Sodium 133 L, Potassium 5.6 H, Chloride 108 H, Carbon Dioxide 16 L, Anion Gap 14.6, BUN 64 H, Creatinine 3.50 H, Estimated Creat Clear 21, Estimated GFR 13 L*, Est GFR ( Amer) 15 L*, Glucose 177 H, Calcium 7.5 L, Magnesium 1.9, Total Bilirubin 0.8, AST 66 H D, ALT 27, Alkaline Phosphatase 60, Total Protein 5.4 L, Albumin 2.7 L D, Globulin 2.7, Albumin/Globulin Ratio 1.0 L 08/18/23 11:24: POC Glucose 178 H 08/18/23 11:50: SARS-CoV-2 (PCR) Not detected, Influenza A Untype (PCR) Detected A, Influenza Type B (PCR) Not detected 08/18/23 13:54: Urine Color Yellow, Urine Appearance Clear, Urine pH 6.5, Ur Specific Hudson 1.020, Urine Protein 2+, Urine Glucose (UA) 1+, Urine Ketones Negative, Urine Blood 1+, Urine Nitrate Negative, Urine Bilirubin Negative, Urine Urobilinogen 0.2, Ur Leukocyte Esterase Negative, Urine RBC Occasional, Urine WBC Occasional, Ur Squamous Epith Cells 3-5, Urine Bacteria Trace I & O for Last 24 hours: Intake & Output 08/15/23 08/16/23 08/17/23 08/18/23 23:59 23:59 23:59 23:59 Intake Total 180 / 180 Output Total 200 / 200 Balance -20 / -20 Weight 94.801 kg 95 kg Constitutional Constitutional: no acute distress *Routine HEENT Exam Head: Present normocephalic Eye: Present EOMI and PERRL ENT: Present mucous membranes moist *Routine Neck Exam Neck: Present supple; Absent lymphadenopathy *Routine Respiratory Exam Respiratory: Present CTA bilaterally *Routine Cardiovascular Exam Cardiovascular: Present RRR *Routine Abdominal Exam Abdominal: Present soft and normoactive bowel sounds; Absent tenderness *Routine Extremities Exam Extremities: Absent cyanosis, clubbing or edema *Routine Skin Exam Skin: Present warm; Absent rash *Routine Neurological Exam Comments: appears confused, no focal deficit, moving all extrimities however not following commands Assessment and Plan *Assessment and plan (1) CHF exacerbation: Status: Acute Qualifiers: Heart failure type: systolic Qualified Code(s): I50.23 - Acute on chronic systolic (congestive) heart failure Category: Medical Code(s): I50.9 - Heart failure, unspecified (2) Acute kidney injury superimposed on chronic kidney disease: Status: Acute Category: Medical Code(s): N17.9 - Acute kidney failure, unspe
[2023-08-18 18:06] LABS: POC Glucose,Bedside 234 (70-110)
--- NOTE | 2023-08-18 18:18 | PC.NURSE ---
[address] Calix to hold on Cardene drip if pt sys is less than 190 systolic.
--- NOTE | 2023-08-18 18:25 | PC.NURSE ---
initial assessment of pt upon arrival to icu room at 1730, pt will arouse to verbal stimuli and speak with staff in short responses. pt does not follow commands well. when asked to supervisor mending staff fingers to check strength, pt is only able to slightly supervisor mending with small pulses but bus matron appear equal. when asked to press down with feet, pt strength in lise legs appear eqial as well.
--- NOTE | 2023-08-18 18:30 | CT_ITS ---
FINAL REPORT TECHNIQUE: multiple axial CT images were performed from the foramen magnum to the vertex without enhancement. CLINICAL HISTORY: AMS COMPARISON: 07/28/2023 FINDINGS: The ventricles are mildly enlarged. There is mild diffuse atrophy. There is periventricular white matter change likely related to small vessel disease. There is an ovoid focus in the medial left temporal lobe which is increased density, was not present on the prior CT, and measures 1.8 x 1.3 cm in size. This appears to be a small focal area of hemorrhage, new since the prior CT. No masses are identified. No extra-axial fluid is seen. The sinuses are normal. IMPRESSION: New focus of increased density in the medial left temporal cortex, measuring 1.8 x 1.3 cm in size, which has the appearance of an acute hemorrhage. This is new since the prior CT of July 28. Mild diffuse atrophy and periventricular white matter changes remained stable. These results were called to [facility] on 08/18/2023 at 2:30 PM, and the information was relayed to the patient's nurse, Radha Artis. Reviewed, Interpreted and Dictated by Sterling Olvera MD Transcribed by Neisha Hayes Authenticated and [facility]
--- NOTE | 2023-08-18 22:40 | PC.NURSE ---
Report called to [facility] Neuro ICU to LOU Garcia.
--- NOTE | 2023-08-18 22:50 | PC.NURSE ---
Call placed to [facility] to inform them of patient transfer. Spoke with GERARDO ChavisP.
--- NOTE | 2023-08-18 23:16 | EXP.DC.SUM ---
General Admission date:: 08/17/23 Discharge date: 08/18/23 HPI HPI HPI: This is a 68-year-old female with hypertension, hyperlipidemia, CHF, diabetes, CKD 4 presenting with altered mental status, weakness. Patient has been intubated on the ventilator twice in the past for sepsis, secondary to UTI and pneumonia. Patient was diagnosed with pneumonia 2 days prior to this visit on 08/17 at [facility] and started on antibiotics. They have been largely unable to get patient to tolerate oral antibiotics. Today family checked on patient and stated that she was tired, largely unable to participate in physical therapy. Afebrile, patient has had productive cough, per family. Admitted for treatment and management. Hospital Course Hospital Course Hospital Course: The patient was admitted to the hospital with acute exacerbation of congestive heart failure. Will obtain an echocardiogram to reevaluate her LV function. The patient has had HFrEF in the past but did recover her EF to around 55% in July 2022. As mentioned earlier we will repeat an echocardiogram at this time. 2. The patient will need continued diuresis. Will give her Lasix 60 mg IV twice daily. Strict I's and O's on the patient. 3. The patient does have a history of coronary artery disease. She denies any chest pain or pressure. Her troponins are elevated. However, her troponins have been chronically elevated for the last 2 years approximately. Continue Plavix and aspirin for her coronary artery disease. 4. The patient's blood pressure is elevated. Will restart her on Coreg, hydralazine and change her Imdur over to Isordil. 5. Her LDL goal is less than 55. She is on a statin. Will get a lipid panel in the morning. 6. The patient is diabetic. She does need aggressive control of her diabetes due to her underlying coronary artery disease. We do recommend changing her Januvia over to Jardiance once she is euvolemic. We do not want to initiate Jardiance while she is in her acute phase of her CHF. 7. Hold her losartan at this time due to her acute kidney injury. Consider switching her to Entresto once her kidney function has improved. 8. The patient does have chronic kidney disease. Her baseline creatinine is around 2.0. Her creatinine is up to 3.7. This is most likely from renal congestion from her congestive heart failure. Will continue diuresing the patient to see if her renal function improves. 9. The patient is status post AICD placement. This is being followed in our outpatient clinic. 10. The patient reports that she did have a fall a few days ago at the prison. She is scheduled to have a CT of the brain at 10 AM today. The family reports that they have talked to the hospitalist about this and they are going to try to do the CT of the brain while she is hospitalized. 11. Further recommendations will be made pending the patient's response to treatment and the results of her echocardiogram today. CT head showed acute brain hemorrhage. patient asked to be transfer for neuro eval Exam Data for Last 24 hours Vital signs and Labs for Last 24 Hours: Temp Pulse Resp BP Pulse Ox O2 Del Method O2 Flow Rate 98.6 F 70 16 106/49 L 95 Nasal Cannula 2 08/18/23 20:00 08/18/23 22:00 08/18/23 22:00 08/18/23 22:00 08/18/23 22:00 08/18/23 22:00 08/18/23 22:00 Laboratory Results - last 24 hr 08/18/23 00:05: Troponin I 0.18 H 08/18/23 02:40: Troponin I 0.16 H 08/18/23 06:04: POC Glucose 190 H 08/18/23 07:02: WBC 8.2 D, RBC 3.49 L D, Hgb 10.4 L D, Hct 36.2 L, MCV 103.7 H, MCH 34.3 H, MCHC 33.1, RDW 13.4, Plt Count 151, MPV 8.2, Neut % (Auto) 77.1, Lymph % (Auto) 14.4, Stone % (Auto) 6.1, Eos % (Auto) 2.2, Baso % (Auto) 0.2, Neut # (Auto) 6.3, Lymph # (Auto) 1.2, Stone # (Auto) 0.5, Eos # (Auto) 0.2, Baso # (Auto) 0.0, Sodium 133 L, Potassium 5.6 H, Chloride 108 H, Carbon Dioxide 16 L, Anion Gap 14.6, BUN 64 H, Creatinine 3.50 H, Estimated Creat Clear 21, Estimat
--- NOTE | 2023-08-18 23:30 | PC.NURSE ---
[facility] here for patient transfer to [facility] Neuro ICU bed 1.
[2023-08-19 22:26] LABS: POC Glucose,Bedside 175 (70-110)
== END 2023-08-18 23:50 | disposition short-term general hospital (02) | DRG 64 ==
LOC: ER 23:01 → 2ND 23:16
PROVIDERS: Nurse Practitioner Family; Admitting Provider Internal Medicine Adolescent Medicine; Emergency Provider Emergency Medicine; PCP Internal Medicine Adolescent Medicine; Visit Provider Internal Medicine Adolescent Medicine
DX: I61.9 Nontraumatic intracerebral hemorrhage, unspecified (principal); I50.23 Acute on chronic systolic (congestive) heart failure; J96.01 Acute respiratory failure with hypoxia; I13.0 Hypertensive heart and chronic kidney disease with heart failure and stage 1 through stage 4 chronic kidney disease, or unspecified chronic kidney disease; N18.4 Chronic kidney disease, stage 4 (severe); N17.9 Acute kidney failure, unspecified; E87.1 Hypo-osmolality and hyponatremia; I42.9 Cardiomyopathy, unspecified; D63.1 Anemia in chronic kidney disease; Z79.4 Long term (current) use of insulin; Z95.1 Presence of aortocoronary bypass graft; Z95.810 Presence of automatic (implantable) cardiac defibrillator; E66.9 Obesity, unspecified; Z68.37 Body mass index [BMI] 37.0-37.9, adult; I25.10 Atherosclerotic heart disease of native coronary artery without angina pectoris; E78.2 Mixed hyperlipidemia; E11.22 Type 2 diabetes mellitus with diabetic chronic kidney disease; N18.9 Chronic kidney disease, unspecified; E11.40 Type 2 diabetes mellitus with diabetic neuropathy, unspecified; E11.51 Type 2 diabetes mellitus with diabetic peripheral angiopathy without gangrene
CPT/HCPCS: 36415; 70450; 71045; 80053; 81001; 82962; 83605; 83735; 83880; 84145; 84484; 85025; 87040; 87636; 93306; 99291; Q9957

== ENCOUNTER 2023-11-14 17:08 | Emergency (ER) | payer MEDICARE, SELFPAY ==
[2023-11-14] VITALS (9 sets, daily range): BP systolic 145–161; BP diastolic 60–71; PULSE 70–73; RESP 16–18; TEMP 36.7; O2SAT 94–99; BMI 31.4
--- NOTE | 2023-11-14 17:34 | CT_ITS ---
PROCEDURE INFORMATION: Exam: CT Cervical Spine Without Contrast Exam date and time: 11/14/2023 5:45 PM Age: 73 years old Clinical indication: Radicular pain (radiculopathy); Cervical region TECHNIQUE: Imaging protocol: Computed tomography of the cervical spine without contrast. Radiation optimization: All CT scans at this facility use at least one of these dose optimization techniques: automated exposure control; mA and/or kV adjustment per patient size (includes targeted exams where dose is matched to clinical indication); or iterative reconstruction. COMPARISON: CT CERVICAL SPINE WO CON 07/10/2023 12:57 PM FINDINGS: Tubes, catheters and devices: There is a right tunneled catheter Bones/joints: Vertebral alignment is maintained. There is preservation of vertebral body heights. Facet joints are aligned. Odontoid process is intact. Atlantoaxial interval maintained. No acute fracture. Uncovertebral and facet arthropathy result in varying degrees of neural foraminal narrowing at multiple levels. Lungs: Lung apices are normal. Vasculature: Vascular calcifications noted Soft tissues: Prevertebral and paravertebral soft tissues are maintained IMPRESSION: No acute fracture. No traumatic subluxation.
--- NOTE | 2023-11-14 17:34 | CT_ITS ---
PROCEDURE INFORMATION: Exam: CT Head Without Contrast Exam date and time: 11/14/2023 5:45 PM Age: 73 years old Clinical indication: Pain; Headache; Additional info: Persistent CLEMENT TECHNIQUE: Imaging protocol: Computed tomography of the head without contrast. Radiation optimization: All CT scans at this facility use at least one of these dose optimization techniques: automated exposure control; mA and/or kV adjustment per patient size (includes targeted exams where dose is matched to clinical indication); or iterative reconstruction. COMPARISON: CT HEAD/BRAIN WO CON 08/18/2023 1:26 PM FINDINGS: Brain: There is no evidence of acute intracranial hemorrhage, extra-axial collection or locoregional mass effect. There are patchy hypodensities in the periventricular and subcortical white matter. The appearance is nonspecific, but most likely represents chronic small vessel disease in a person of this age Cerebral ventricles: The ventricles, sulci and cisterns are normal in size and configuration for patient's age. No hydrocephalus or midline structure shift Pituitary gland and sella: Partially empty sella noted Paranasal sinuses: Visualized sinuses are unremarkable. No fluid levels. Mastoid air cells: Visualized mastoid air cells are well aerated. Bones/joints: No calvarial fracture Soft tissues: Unremarkable. IMPRESSION: No acute intracranial abnormality. No calvarial fracture.
--- NOTE | 2023-11-14 17:41 | ED_ITS ---
Discharge Plan Disposition Patient Disposition: Home, Self-Care Condition: Good Prescriptions Prescriptions: No Action aspirin [Adult Low Dose Aspirin] 81 mg tablet,delayed release (DR/EC) 81 mg PO DAILY clopidogrel 75 mg tablet 75 mg PO DAILY sitagliptin phosphate [Januvia] 50 mg tablet 50 mg PO DAILY famotidine 20 mg tablet 20 mg PO BID citalopram 20 mg tablet 20 mg PO DAILY 90 Days insulin NPH and regular human 100 unit/mL (70-30) insulin pen 12 unit SQ BID carvedilol 12.5 mg tablet 12.5 mg PO BID cholecalciferol (vitamin D3) 1,000 UNIT tablet 1,000 unit PO DAILY tramadol 50 mg tablet 50 mg PO TIDP PRN (Reason: Pain) Rx Instructions: USUALLY ONLY TAKES AT BEDTIME pantoprazole 40 mg tablet,delayed release (DR/EC) 40 mg PO HS ferrous sulfate 325 mg (65 mg iron) Tablet 325 mg PO DAILY cetirizine 10 mg tablet 10 mg PO DAILY Patient Comments: TAKE 1 TABLET BY MOUTH ONCE DAILY cyanocobalamin (vitamin B-12) 1,000 mcg/mL solution 1,000 mcg IM MONTHLY albuterol sulfate 90 mcg/actuation HFA aerosol inhaler 2 puff INHALATION Q6HP PRN (Reason: Shortness Of Breath) Patient Comments: INHALE 2 PUFFS BY MOUTH EVERY 6 HOURS NEEDED atorvastatin 40 mg Tablet 40 mg PO HS 30 Days Qty: 30 0RF isosorbide mononitrate 30 mg Tablet Extended Release 24 Hr 30 mg PO DAILY 30 Days Qty: 30 0RF gabapentin 100 mg capsule 100 mg PO TID Qty: 90 0RF bumetanide 0.5 mg Tablet 0.5 mg PO DAILY hydralazine 25 mg tablet 50 mg PO TID Referrals Follow up/Referrals: Robert Holland DO [Staff Physician] - See instructions (cervical radiculopathy) Royer Parrish MD [Primary Care Provider] - See instructions Activity Restrictions/Add. Instructions Additional Instructions/Restrictions: You were evaluated in the ER. You are appropriate for discharge at this time. Continue taking your home medications as previously prescribed. Continue with the blood thinner. Follow-up outpatient for DVT ultrasound. They should call you for an appointment, but if they do not, return to the ER triage room and the person there will help you get in for your ultrasound. Make appointment with with your primary care physician for reevaluation in 2 to 3 days. Also follow- up with orthopedics regarding the changes in your cervical spine. Return to the ER with new, worsening, or otherwise concerning symptoms. Clinical Impressions Clinical Impression: Cervical radiculopathy, Left leg pain Discharge ED Provider: Toshia Kuo Adult HPI General Chief complaint: PAIN Stated complaint: WEAKNESS Time Seen by Provider: 11/14/23 17:25 Mode of Arrival: EMS Source of Information: Patient Limitations: No Limitations Description of Symptoms (Recalled from ER Triage Doc. by RN): Patient reports going to dialysis this morning and after getting home she began to have pain in her left shoulder and numbness in bilateral hands. States that she has been out of her gabapentin and has not taken her insulin this morning. History of Present Illness HPI narrative: 73-year-old female presents to the ER with concerns of pain in her left arms, numbness in bilateral hands, pain in her left lower extremity. Patient recently was discharged from [facility]. She has been getting routine dialysis including earlier today. Patient states she has not taken her gabapentin or her diabetes medications. Patient states her symptoms have been ongoing for weeks but come and go. She is also complaining of headache that seems to be persistent. Patient was recently diagnosed with a right lower extremity DVT and was started on Eliquis. She also has ultrasound results pending at [facility] for her left lower extremity. She has an area of pain in the distal left lower extremity as well as in the back of the left leg, no known diagnosis of DVT in that leg. Related Data Home Medications Medication Instructions Recorded Confirmed aspirin 81 mg tablet,delayed 81 mg PO DAILY Heart disease 09/17/17 08/18/23 release (Adult Low Dose Aspirin) clopidogrel 75 mg tablet 75 mg PO DAILY 09/17/17 08/18/23 sitagliptin phosphate 50 mg tablet 50 mg PO DAILY Diabetes 09/17/17 08/18/23 (Januvia) famotidine 20 mg tablet 20 mg PO BID Acid reflux 09/18/17 08/18/23 citalopram 20 mg tablet 20 mg PO DAILY Depression 90 days 09/16/18 08/18/23 cholecalciferol (vitamin D3) 25 1,000 unit PO DAILY Supplement 05/12/19 08/18/23 mcg (1,000 unit) tablet insulin NPH-regular 70-30 U-100 12 unit SQ BID Diabetes 02/09/20 08/18/23 insulin 100 unit/mL subcutaneous pen carvedilol 12.5 mg tablet 12.5 mg PO BID 10/23/20 08/18/23 ferrous sulfate 325 mg (65 mg 325 mg PO DAILY supplement 07/09/22 08/18/23 iron) tablet pantoprazole 40 mg tablet,delayed 40 mg PO HS 06/25/23 08/18/23 release tramadol 50 mg tablet 50 mg PO TIDP PRN Pain 06/25/23 08/18/23 albuterol sulfate 90 mcg/actuation 2 puff inhalation Q6HP PRN 07/29/23 08/18/23 aerosol inhaler Shortness Of Breath cetirizine 10 mg tablet 10 mg PO DAILY 07/29/23 08/18/23 cyanocobalamin (vitamin B-12) 1,000 mcg IM MONTHLY 07/29/23 08/18/23 1,000 mcg/mL injection solution bumetanide 0.5 mg tablet 0.5 mg PO DAILY 08/18/23 08/18/23 hydralazine 25 mg tablet 50 mg PO TID 08/18/23 08/18/23 Previous Rx's Medication Instructions Recorded atorvastatin 40 mg tablet 40 mg PO HS 30 days #30 tabs 08/03/23 gabapentin 100 mg capsule 100 mg PO TID #90 caps 08/03/23 isosorbide mononitrate 30 mg 30 mg PO DAILY 30 days #30 tabs 08/03/23 tablet,extended release 24 hr Allergies Allergy/AdvReac Type Severity Reaction Status Date / Time fentanyl [FENTANYL] Allergy Unknown Verified 08/18/22 09:32 latex [LATEX] Allergy Unknown Verified 08/18/22 09:32 codeine AdvReac Unknown Verified 08/18/22 09:32 [facility] Disclaimer: The information contained in this section may have been updated after the patient was seen, as this information can be updated by other users. 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 At risk for falls due to medication Type 2 diabetes mellitus with diabetic neuropathy, with long-term current use of insulin Diabetes mellitus Coronary artery disease Hyperlipidemia Hypertension Edema Stage 4 chronic kidney disease CHF (congestive heart failure) Surgical History S/P cardiac cath Pacemaker Hx of CABG Family History Other No significant family history Social History (Updated 08/18/23 @ 00:29 by Adilia Saeed RN) Smoking Status: Unknown if ever smoked second hand exposure: No alcohol intake: never counseling provided: none substance use type: denies use current occupational status: retired and disabled Travel in the last 8 weeks: None household members: family housing: house current occupational exposures/hazards: No caffeine: No ROS Obtained: Yes All systems reviewed & no additional complaints except as documented Constitutional Constitutional: Denies chills, Denies fever(s), Reports headache(s) and Denies weakness Eyes Eyes: Denies change in vision ENT Ears, Nose, Mouth, and Throat: Denies dizziness, Reports headache(s), Denies nasal congestion and Denies sore throat Cardiovascular Cardiovascular: Denies chest pain, Denies dyspnea and Denies leg edema Respiratory Respiratory: Denies cough and Denies dyspnea Gastrointestinal Gastrointestingal: Denies constipation, diarrhea, nausea or vomiting Genitourinary Female Genitourinary: Denies dysuria Musculoskeletal Musculoskeletal: Denies arthralgias, Denies myalgias, Reports numbness and Denies tingling Integumentary/Breasts Skin/Breast: Denies change in pigmentation Neurologic Neurologic: Denies dizziness, Reports headache(s), Reports numbness, Denies tingling and Denies weakness Physical Exam General General appearance: alert and in no apparent distress Head Head exam: atraumatic and normocephalic Eye Eye exam: Present PERRL and EOMI ENT ENT exam: Present mucous membranes moist Neck Neck exam: Present normal inspection and full ROM Chest Chest inspection: Present symmetric chest wall rise Respiratory Respiratory exam: Absent respiratory distress or stridor Cardiovascular Cardiovascular exam: Present regular rate and normal rhythm Abdominal Exam Abdominal exam: Present soft; Absent distention, tenderness, guarding or rebound Extremities Exam Extremities exam: Present full ROM and tenderness (Tenderness to palpation of the distal lateral left lower extremity with bruise. Patient has full range of motion, no bony tenderness. No tender palpable cord); Absent edema, joint swelling or calf tenderness Back Exam Comment: With rotation of the neck to the right, patient has relief of the numbness/tingling in her left hand, with rotation of the head to the left, she has worsening of it. No tenderness of the cervical spine. No step-offs or deformities. Neurological Exam Neurological exam: Present alert and oriented X3; Absent motor sensory deficit (Intact 2 point discrimination, no identifiable deficits) Psychiatric Psychiatric exam: Present normal affect and normal mood Skin Skin exam: Present warm and dry Medical Decision Making Donnell Inquiry Pt receiving controlled substance: No Vital Signs: 11/14/23 17:08 11/14/23 17:30 11/14/23 18:00 Temperature 98.0 F Temperature Source Oral Pulse Rate 70 70 Pulse Rate [Radial] 70 Respiratory Rate 18 Blood Pressure Blood Pressure [Left Arm] 145/60 H Blood Pressure Mean Blood Pressure Mean [Left Arm] 88 Blood Pressure Source [Left Arm] Automatic Cuff Blood Pressure Position [Left Arm] Supine 02 Sat by Pulse Oximetry 99 99 99 Oxygen Delivery Method Room Air 11/14/23 18:29 11/14/23 18:30 11/14/23 19:00 Temperature Temperature Source Pulse Rate 70 71 70 Pulse Rate [Radial] Respiratory Rate Blood Pressure 153/63 H 155/64 H 151/60 H Blood Pressure [Left Arm] Blood Pressure Mean 85 Blood Pressure Mean [Left Arm] Blood Pressure Source [Left Arm] Blood Pressure Position [Left Arm] 02 Sat by Pulse Oximetry 97 95 97 Oxygen Delivery Method Room Air Room Air 11/14/23 19:30 11/14/23 20:00 11/14/23 20:35 Temperature 98.0 F Temperature Source Oral Pulse Rate 73 72 73 Pulse Rate [Radial] Respiratory Rate 16 Blood Pressure 161/66 H 155/62 H 154/71 H Blood Pressure [Left Arm] Blood Pressure Mean 97 93 Blood Pressure Mean [Left Arm] Blood Pressure Source [Left Arm] Blood Pressure Position [Left Arm] 02 Sat by Pulse Oximetry 97 94 L Oxygen Delivery Method Lab Data Lab Results 11/14/23 17:40: WBC 8.3, RBC 3.36 L, Hgb 11.0 L, Hct 33.6 L, MCV 99.8 H, MCH 32.7 H, MCHC 32.8, RDW 17.0, Plt Count 242, MPV 7.8, Neut % (Auto) 75.6, Lymph % (Auto) 17.7, [place] % (Auto) 5.8, Eos % (Auto) 0.5, Baso % (Auto) 0.5, Neut # (Auto) 6.3, Lymph # (Auto) 1.5, [place] # (Auto) 0.5, Eos # (Auto) 0.0, Baso # (Auto) 0.0, PT 10.6, INR 0.98, Sodium 132 L, Potassium 3.8, Chloride 97 L, C arbon Dioxide 32 H, Anion Gap 6.8, BUN 13, Creatinine 1.40 H, Estimated Creat Clear 43, Estimated GFR 37 L, Est GFR ( Amer) 44 L, Glucose 307 H, Calcium 9.2, Total Bilirubin 0.7, AST 51 H, ALT 36, Alkaline Phosphatase 203 H, Troponin I 0.02, Total Protein 6.7, Albumin 3.7, Globulin 3.0, Albumin/Globulin Ratio 1.2 11/14/23 17:40 11/14/23 17:40 Orders (Tests/Meds): ED MEDICATIONS Discontinued Medications Generic Name Dose Route Start Last Admin Trade Name Freq PRN Reason Stop Dose Admin Acetaminophen 1,000 mg 11/14/23 18:58 11/14/23 19:18 Acetaminophen 500mg Tab PO 11/14/23 18:59 1,000 mg ONCE ONE Administration ORDERS Category Date Time Status CT cervical spine wo con Stat Cat Scan 11/14/23 17:[address] head/brain wo con Stat Cat Scan 11/14/23 17:34 Completed POCUS Point of Care (ER Only) Stat Exams 11/14/23 17:53 Completed CBC w/Auto Diff [Complete Blood Count Auto Diff] Stat Lab 11/14/23 17:40 Completed CMP [Comprehensive Metabolic Panel] Stat Lab 11/14/23 17:40 Completed PT INR [Prothrombin Time INR] Stat Lab 11/14/23 17:40 Completed Trop I [Troponin I] Stat Lab 11/14/23 17:40 Completed CA venous doppler LE LT Stat Y 11/14/23 17:46 Stop Req Medical Decision Narrative: In summary, this 73year old female presents to the emergency department today with concerns of hand numbness, headache, left lower extremity pain. On initial evaluation patient is hemodynamically stable, afebrile, patient does not have any localizing deficits, she does have changes in her tingling/numbness sensation in the hands with rotation of the neck, no findings of trauma or other injury. Differential diagnosis includes but is not limited to radiculopathy, I considered intracranial bleed or mass though I have very low suspicion for these, I considered electrolyte abnormality given patient is on dialysis, I also considered DVT, patient is already on Eliquis for right lower extremity DVT. Given the complaint of left upper extremity pain, ACS was considered as well. Doppler ultrasound is not available today, I will perform [id number] ultrasound. Based on these concerns, I ordered []. ECG personally interpreted demonstrates normal sinus rhythm, rate 70, no STEMI, right bundle branch block present, right axis deviation, similar to prior based on my review of EKG from July 2023. Patient received Tylenol for treatment. Labs personally reviewed demonstrate no leukocytosis, mild anemia, PT/INR normal, CMP with trace hyponatremia and hypochloremia, nonactionable, nonspecific at this time, creatinine 1.40, patient is on dialysis, nonactionable, calcium normal, mild elevation in AST and alkaline phosphatase, nonspecific and patient's clinical presentation today, initial troponin 0.02, patient has a history of CKD which is likely causing this elevation, this is also actually significantly improved from patient's previous troponin readings. CT head and cervical spine personally interpreted do not demonstrate any acute intracranial abnormality such as bleed or mass. CT cervical spine does demonstrate degenerative changes. See radiology read for final interpretation. On reassessment patient remains stable. She is appropriate for discharge at this time. [id number] ultrasound for DVT of the left lower extremity was reassuring, see procedure note for details. Patient is already on Eliquis and was encouraged to continue this. She was also given instructions on outpatient follow-up for repeat exam. Patient symptoms are controlled. I instructed her to continue taking her home medications as previously prescribed. No new medications at this time. She is appropriate for discharge. Patient was given instructions on symptomatic management, follow up instructions, and return precautions for the emergency department. Patient indicated understanding and was discharged in stable condition. Procedures Miscellaneous Procedure Procedure Performed: Limited DVT ultrasound Indication: Limited compression ultrasonography of the left lower was performed to evaluate for non-compressibility of the deep veins in the patient. The ultrasound was performed with the following indications, as noted in the H&P: Left leg pain Identified structures: Left common femoral vein, femoral vein, popliteal vein were examined. Findings: Left CFV: Good compressibility Left FV good compressibility Left Popliteal vein: Good compressibility Impression: No obvious DVT identified Images were saved to permanent archive The study was technically adequate [id number] This study was performed by me, and I personally interpreted all images/videos. Based on my clinical judgement, these images were adequate and did not necessitate further imaging in the ER. Critical Care Critical Care Time Critical Care Time: No
--- NOTE | 2023-11-14 17:41 | PC.NURSE ---
pt gone with radiology
[2023-11-14 17:49] LABS: Basophils % 0.5 % (0.1-2.0); Eosinophils % 0.5 % (0.1-12.0); Hematocrit 33.6 % (37.0-47.0); Lymphocytes # 1.5 K/mm3 (0.7-4.5); Lymphocytes % 17.7 % (10-50); Mean Corpuscular HGB Conc 32.8 g/dL (31.8-35.4); Mean Corpuscular Hemoglobin 32.7 pg (27.0-31.2); Mean Corpuscular Volume 99.8 fl (81-99); Mean Platelet Volume 7.8 fl (7.4-10.4); Monocytes # 0.5 K/mm3 (0.1-1.0); Monocytes % 5.8 % (1.7-9.3); Neutrophils # 6.3 K/mm3 (1.8-7.8); Neutrophils % 75.6 % (37.0-80.0); Platelet Count 242 K/mm3 (142-424); Red Blood Count 3.36 M/mm3 (4.20-5.40); White Blood Count 8.3 K/mm3 (4.8-10.8)
[2023-11-14 17:50] LABS: Chloride 97 mmol/L (98-107); Sodium 132 mmol/L (136-145)
[2023-11-14 17:51] LABS: Potassium 3.8 mmoL/L (3.5-5.1)
[2023-11-14 17:53] LABS: Alanine Aminotransferase 36 U/L (12-78); Albumin Level 3.7 g/dl (3.5-5.0); Albumin/Globulin Ratio 1.2 (1.1-1.8); Alkaline Phosphatase 203 U/L (38-126); Anion Gap 6.8 mEq/L (5-15); Aspartate Amino Transferase 51 U/L (14-36); Bilirubin,Total 0.7 mg/dl (0.2-1.3); Blood Urea Nitrogen 13 mg/dl (7-17); Carbon Dioxide 32 mmol/L (22.0-30.0); Creatinine Clearance Estimated 43 mL/min (50-200); Estimated Glomerular Filt Rate 37 ml/min (>60); GFR (African American) 44 ML/MIN (>60); Total Protein,Serum 6.7 g/dl (6.3-8.2)
[2023-11-14 17:54] LABS: Calcium 9.2 mg/dl (8.4-10.2); Glucose 307 mg/dl (74-100)
[2023-11-14 17:55] LABS: INR 0.98 (0.9-1.1); Prothrombin Time 10.6 seconds (10.1-12.5)
--- NOTE | 2023-11-14 18:05 | ECG_ITS ---
APPROVED REPORT Exam: Resting ECG HR:70 bpm ECG Measurements Heart Rate 70 AXES LA 177 P 137 QRSd 165 QRS 109 QT 517 T -12 QTc 537 Conclusion AV paced Sgarbossa negative Electronically signed by : LANDON TALAMANTES, 11/15/2023 03:06:13
--- NOTE | 2023-11-14 18:11 | PC.NURSE ---
patient provided with pillow anf blanket at this time
[2023-11-14 18:20] LABS: Troponin I 0.02 ng/ml (0.00-0.034)
[2023-11-14] MEDS: ACETAMINOPHEN 500MG TAB 1000 MG PO (19:18)
== END 2023-11-14 20:37 | disposition home or self-care (01) ==
PROVIDERS: Emergency Provider Emergency Medicine; PCP Internal Medicine Adolescent Medicine
DX: M54.12 Radiculopathy, cervical region (principal); M79.605 Pain in left leg; M79.602 Pain in left arm; R20.0 Anesthesia of skin; R51.9 Headache, unspecified; E11.40 Type 2 diabetes mellitus with diabetic neuropathy, unspecified; I13.2 Hypertensive heart and chronic kidney disease with heart failure and with stage 5 chronic kidney disease, or end stage renal disease; I50.20 Unspecified systolic (congestive) heart failure; E11.22 Type 2 diabetes mellitus with diabetic chronic kidney disease; N18.6 End stage renal disease; I42.9 Cardiomyopathy, unspecified; D63.1 Anemia in chronic kidney disease; E11.51 Type 2 diabetes mellitus with diabetic peripheral angiopathy without gangrene; I25.10 Atherosclerotic heart disease of native coronary artery without angina pectoris; E78.5 Hyperlipidemia, unspecified; I45.19 Other right bundle-branch block; Z86.718 Personal history of other venous thrombosis and embolism; Z79.01 Long term (current) use of anticoagulants
CPT/HCPCS: 70450; 72125; 80053; 84484; 85025; 85610; 93005; 99285

== ENCOUNTER 2023-11-15 10:38 | Outpatient (CLI) | payer MEDICARE, SELFPAY ==
--- NOTE | 2023-11-15 | CA_ITS ---
FINAL REPORT TECHNIQUE: Color Doppler, duplex Doppler and compression sonography of the left lower extremity deep venous systems was performed. CLINICAL HISTORY: LEFT LEG EDEMA, HX-DVT, ON XARELLTO COMPARISON: None FINDINGS: There is no evidence of deep venous thrombosis from the level of the groin to the calf. The veins are patent and compressible. IMPRESSION: No evidence of deep venous thrombosis left lower extremity. Reviewed, Interpreted and Dictated by Ed Erazo III, MD Transcribed by Neisha Hayes Authenticated and [facility]
== END 2023-11-15 23:59 ==
PROVIDERS: PCP Internal Medicine Adolescent Medicine; Visit Provider Emergency Medicine
DX: M79.662 Pain in left lower leg; R60.0 Localized edema; Z86.718 Personal history of other venous thrombosis and embolism
CPT/HCPCS: 93971